=== PATIENT | female | born 1945 | race Caucasian/White ===

== ENCOUNTER → 2020-06-18 13:29 | Outpatient (BNVA) | payer MEDICARE, SELFPAY | PROVIDERS: PCP Family Medicine; Visit Provider Internal Medicine | DX: I48.0 Paroxysmal atrial fibrillation (principal); Z51.81 Encounter for therapeutic drug level monitoring; Z79.01 Long term (current) use of anticoagulants | CPT/HCPCS: 85610 ==

== ENCOUNTER → 2020-07-03 10:35 | Outpatient (BNVA) | payer MEDICARE, SELFPAY | PROVIDERS: PCP Family Medicine; Visit Provider Internal Medicine | DX: I48.0 Paroxysmal atrial fibrillation (principal); Z51.81 Encounter for therapeutic drug level monitoring; Z79.01 Long term (current) use of anticoagulants | CPT/HCPCS: 85610; 99211 ==

== ENCOUNTER → 2020-07-25 13:05 | Outpatient (BNVA) | payer MEDICARE, SELFPAY | PROVIDERS: PCP Family Medicine; Visit Provider Internal Medicine | DX: I48.0 Paroxysmal atrial fibrillation (principal); Z51.81 Encounter for therapeutic drug level monitoring; Z79.01 Long term (current) use of anticoagulants | CPT/HCPCS: 85610; 99211 ==

== ENCOUNTER → 2020-08-01 13:03 | Outpatient (BNVA) | payer MEDICARE, SELFPAY | PROVIDERS: PCP Family Medicine; Visit Provider Internal Medicine | DX: I48.0 Paroxysmal atrial fibrillation (principal); Z51.81 Encounter for therapeutic drug level monitoring; Z79.01 Long term (current) use of anticoagulants | CPT/HCPCS: 85610; 99211 ==

== ENCOUNTER → 2020-08-04 10:46 | Outpatient (BNVA) | payer MEDICARE, SELFPAY | PROVIDERS: PCP Family Medicine; Visit Provider Internal Medicine | DX: I48.0 Paroxysmal atrial fibrillation (principal); Z51.81 Encounter for therapeutic drug level monitoring; Z79.01 Long term (current) use of anticoagulants | CPT/HCPCS: 85610; 99211 ==

== ENCOUNTER → 2020-08-14 15:26 | Outpatient (BNVA) | payer MEDICARE, SELFPAY | PROVIDERS: PCP Family Medicine; Visit Provider Internal Medicine | DX: I48.0 Paroxysmal atrial fibrillation (principal); Z51.81 Encounter for therapeutic drug level monitoring; Z79.01 Long term (current) use of anticoagulants | CPT/HCPCS: 85610; 99212 ==

== ENCOUNTER → 2020-08-19 14:49 | Outpatient (BNVA) | payer MEDICARE, SELFPAY | PROVIDERS: PCP Family Medicine; Visit Provider Internal Medicine | DX: I48.0 Paroxysmal atrial fibrillation (principal); Z51.81 Encounter for therapeutic drug level monitoring; Z79.01 Long term (current) use of anticoagulants | CPT/HCPCS: Q3014 ==

== ENCOUNTER → 2020-08-21 15:38 | Outpatient (BNVA) | payer MEDICARE, SELFPAY | PROVIDERS: PCP Family Medicine; Visit Provider Internal Medicine | DX: I48.0 Paroxysmal atrial fibrillation (principal); Z51.81 Encounter for therapeutic drug level monitoring; Z79.01 Long term (current) use of anticoagulants | CPT/HCPCS: 85610; 99211 ==

== ENCOUNTER → 2020-08-25 15:28 | Outpatient (BNVA) | payer MEDICARE, SELFPAY | PROVIDERS: PCP Family Medicine; Visit Provider Internal Medicine | DX: I48.0 Paroxysmal atrial fibrillation (principal); Z51.81 Encounter for therapeutic drug level monitoring; Z79.01 Long term (current) use of anticoagulants | CPT/HCPCS: 85610; 99211 ==

== ENCOUNTER → 2020-09-01 14:55 | Outpatient (BNVA) | payer MEDICARE, SELFPAY | PROVIDERS: PCP Family Medicine; Visit Provider Internal Medicine | DX: I48.0 Paroxysmal atrial fibrillation (principal); Z51.81 Encounter for therapeutic drug level monitoring; Z79.01 Long term (current) use of anticoagulants | CPT/HCPCS: 85610; 99211 ==

== ENCOUNTER → 2020-09-08 15:06 | Outpatient (BNVA) | payer MEDICARE, SELFPAY | PROVIDERS: PCP Family Medicine; Visit Provider Internal Medicine | DX: I48.0 Paroxysmal atrial fibrillation (principal); Z51.81 Encounter for therapeutic drug level monitoring; Z79.01 Long term (current) use of anticoagulants | CPT/HCPCS: 85610; 99211 ==

== ENCOUNTER → 2020-09-18 14:55 | Outpatient (BNVA) | payer MEDICARE, SELFPAY | PROVIDERS: PCP Family Medicine; Visit Provider Internal Medicine | DX: I48.0 Paroxysmal atrial fibrillation (principal); Z79.01 Long term (current) use of anticoagulants; Z51.81 Encounter for therapeutic drug level monitoring | CPT/HCPCS: 85610; 99211 ==

== ENCOUNTER → 2020-09-24 14:55 | Outpatient (BNVA) | payer MEDICARE, SELFPAY | PROVIDERS: PCP Family Medicine; Visit Provider Internal Medicine | DX: I48.0 Paroxysmal atrial fibrillation (principal); Z79.01 Long term (current) use of anticoagulants; Z51.81 Encounter for therapeutic drug level monitoring | CPT/HCPCS: 85610; 99211 ==

== ENCOUNTER → 2020-10-01 15:01 | Outpatient (BNVA) | payer MEDICARE, SELFPAY | PROVIDERS: PCP Family Medicine; Visit Provider Internal Medicine | DX: I48.0 Paroxysmal atrial fibrillation (principal); Z51.81 Encounter for therapeutic drug level monitoring; Z79.01 Long term (current) use of anticoagulants | CPT/HCPCS: 85610; 99211 ==

== ENCOUNTER → 2020-10-10 14:57 | Outpatient (BNVA) | payer MEDICARE, SELFPAY | PROVIDERS: PCP Family Medicine; Visit Provider Internal Medicine | DX: I48.0 Paroxysmal atrial fibrillation (principal); Z51.81 Encounter for therapeutic drug level monitoring; Z79.01 Long term (current) use of anticoagulants | CPT/HCPCS: 85610; 99211 ==

== ENCOUNTER → 2020-10-21 10:55 | Outpatient (BNVA) | payer MEDICARE, SELFPAY | PROVIDERS: PCP Family Medicine; Visit Provider Internal Medicine | DX: I48.0 Paroxysmal atrial fibrillation (principal); Z51.81 Encounter for therapeutic drug level monitoring; Z79.01 Long term (current) use of anticoagulants | CPT/HCPCS: 85610; 99211 ==

== ENCOUNTER → 2020-11-03 11:18 | Outpatient (BNVA) | payer MEDICARE, SELFPAY | PROVIDERS: PCP Family Medicine; Visit Provider Internal Medicine | DX: I48.0 Paroxysmal atrial fibrillation (principal); Z51.81 Encounter for therapeutic drug level monitoring; Z79.01 Long term (current) use of anticoagulants | CPT/HCPCS: 85610; 99211 ==

== ENCOUNTER → 2020-11-11 11:10 | Outpatient (BNVA) | payer MEDICARE, SELFPAY | PROVIDERS: PCP Family Medicine; Visit Provider Internal Medicine | DX: I48.0 Paroxysmal atrial fibrillation (principal); Z51.81 Encounter for therapeutic drug level monitoring; Z79.01 Long term (current) use of anticoagulants | CPT/HCPCS: 85610; 99211 ==

== ENCOUNTER → 2020-11-18 10:53 | Outpatient (BNVA) | payer MEDICARE, SELFPAY | PROVIDERS: PCP Family Medicine; Visit Provider Internal Medicine | DX: I48.0 Paroxysmal atrial fibrillation (principal); Z51.81 Encounter for therapeutic drug level monitoring; Z79.01 Long term (current) use of anticoagulants | CPT/HCPCS: 85610; 99211 ==

== ENCOUNTER → 2020-11-25 10:47 | Outpatient (BNVA) | payer MEDICARE, SELFPAY | PROVIDERS: PCP Family Medicine; Visit Provider Internal Medicine | DX: I48.0 Paroxysmal atrial fibrillation (principal); Z51.81 Encounter for therapeutic drug level monitoring; Z79.01 Long term (current) use of anticoagulants | CPT/HCPCS: 85610; 99211 ==

== ENCOUNTER → 2020-12-08 10:55 | Outpatient (BNVA) | payer MEDICARE, SELFPAY | PROVIDERS: PCP Family Medicine; Visit Provider Internal Medicine | DX: I48.0 Paroxysmal atrial fibrillation (principal); Z51.81 Encounter for therapeutic drug level monitoring; Z79.01 Long term (current) use of anticoagulants | CPT/HCPCS: 85610; 99211 ==

== ENCOUNTER → 2020-12-18 13:23 | Outpatient (BNVA) | payer MEDICARE, SELFPAY | PROVIDERS: PCP Family Medicine; Visit Provider Internal Medicine | DX: I48.0 Paroxysmal atrial fibrillation (principal); Z51.81 Encounter for therapeutic drug level monitoring; Z79.01 Long term (current) use of anticoagulants | CPT/HCPCS: 85610; 99211 ==

== ENCOUNTER → 2020-12-22 13:09 | Outpatient (BNVA) | payer MEDICARE, SELFPAY | PROVIDERS: PCP Family Medicine; Visit Provider Internal Medicine | DX: I48.0 Paroxysmal atrial fibrillation (principal); Z79.01 Long term (current) use of anticoagulants; Z51.81 Encounter for therapeutic drug level monitoring | CPT/HCPCS: 85610; 99211 ==

== ENCOUNTER → 2021-01-05 14:02 | Outpatient (BNVA) | payer MEDICARE, SELFPAY | PROVIDERS: PCP Family Medicine; Visit Provider Internal Medicine | DX: I48.0 Paroxysmal atrial fibrillation (principal); Z51.81 Encounter for therapeutic drug level monitoring; Z79.01 Long term (current) use of anticoagulants | CPT/HCPCS: 85610; 99211 ==

== ENCOUNTER → 2021-01-13 11:14 | Outpatient (BNVA) | payer MEDICARE, SELFPAY | PROVIDERS: PCP Family Medicine; Visit Provider Internal Medicine | DX: I48.0 Paroxysmal atrial fibrillation (principal); Z51.81 Encounter for therapeutic drug level monitoring; Z79.01 Long term (current) use of anticoagulants | CPT/HCPCS: 85610; 99211 ==

== ENCOUNTER → 2021-01-26 11:07 | Outpatient (BNVA) | payer MEDICARE, SELFPAY | PROVIDERS: PCP Internal Medicine; Visit Provider Internal Medicine | DX: I48.0 Paroxysmal atrial fibrillation (principal); Z51.81 Encounter for therapeutic drug level monitoring; Z79.01 Long term (current) use of anticoagulants | CPT/HCPCS: 85610; 99211 ==

== ENCOUNTER → 2021-02-12 11:33 | Outpatient (BNVA) | payer MEDICARE, SELFPAY | PROVIDERS: PCP Internal Medicine; Visit Provider Internal Medicine | DX: I48.0 Paroxysmal atrial fibrillation (principal); Z51.81 Encounter for therapeutic drug level monitoring; Z79.01 Long term (current) use of anticoagulants | CPT/HCPCS: 85610; 99211 ==

== ENCOUNTER → 2021-02-16 13:45 | Outpatient (BNVA) | payer MEDICARE, SELFPAY | PROVIDERS: PCP Internal Medicine; Visit Provider Internal Medicine | DX: I48.0 Paroxysmal atrial fibrillation (principal); Z51.81 Encounter for therapeutic drug level monitoring; Z79.01 Long term (current) use of anticoagulants | CPT/HCPCS: 85610; 99211 ==

== ENCOUNTER 2021-03-08 16:59 | Emergency (ER) | payer MEDICARE, SELFPAY ==
--- NOTE | ~2021-03-08 | XR_ITS ---
EXAMINATION: XR TIBIA AND FIBULA, RIGHT CLINICAL INFORMATION: The right COMPARISON: None TECHNIQUE: AP and lateral views of the right tibia and fibula were obtained. FINDINGS: No evidence of bony violation. No evidence of radiopaque foreign body. XR/XR tibia fibula RT 2V IMPRESSION: No bony finding. No radiopaque foreign body is seen
[2021-03-08 17:25] VITALS: BP 128/78; PULSE 52; RESP 16; TEMP 36.3; O2SAT 98; BMI 23.3
--- NOTE | 2021-03-08 18:06 | ED.ANIMALBIT ---
HPI - Animal Bite General Chief Complaint: Animal Bite Stated Complaint: Dog Bite Time Seen by Provider: 03/08/21 17:45 Source: patient Mode of arrival: ambulatory Limitations: no limitations History of Present Illness HPI narrative: 75-year-old female who is currently on blood thinners presenting to the ED with complaints of a dog bite to her right lower leg prior to arrival. She reports that it is her son's dog and this is the 2nd time that he has done this. She reports that she was just walking across the lawn and the dog attacked her. She reports that the dog is up-to-date on all immunizations. She reports she is not up-to-date on tetanus vaccine. She denies any other injuries complaints or concerns at this time. complaint: animal bite Onset (ago): minute(s) ( prior to arrival) Animal: dog Description of animal: household pet Mechanism: bite Location - Extremities: right: lower leg Pain description: dull and constant Context: unprovoked Associated symptoms: none Treatments prior to arrival: wound dressing(s), irrigation and pressure Related Data Patient tetanus UTD: No Home Medications Medication Instructions Recorded Confirmed alendronate 70 mg tablet 70 mg PO QWEEK 10/10/20 01/26/21 atorvastatin 40 mg tablet mg PO 10/10/20 01/26/21 cetirizine 10 mg tablet 10 mg PO DAILY 10/10/20 01/26/21 estradiol g VAGINAL 10/10/20 01/26/21 fluticasone 500 mcg-salmeterol 50 INHALATION 10/10/20 01/26/21 mcg/dose blistr powdr for inhalation metoprolol succinate 50 mg 100 mg PO DAILY 10/10/20 01/26/21 tablet,extended release 24 hr pantoprazole 40 mg tablet,delayed 40 mg PO DAILY 10/10/20 01/26/21 release topiramate 50 mg tablet 50 mg PO DAILY 10/10/20 01/26/21 Previous Rx's Medication Instructions Recorded warfarin 2.5 mg tablet See Rx Instructions .ROUTE 09/01/20 .COMPLEX #90 tab acetaminophen [Tylenol Extra 1,000 mg PO QID PRN #14 tab 03/08/21 Strength] cefuroxime axetil 500 mg PO BID 10 Days #20 tab 03/08/21 tramadol 50 mg PO BID PRN #14 tab 03/08/21 Allergies Allergy/AdvReac Type Severity Reaction Status Date / Time memantine Allergy Severe RAGE Verified 02/16/21 13:53 nitrofurantoin Allergy Intermediate RASH Verified 02/16/21 13:53 oseltamivir [From Tamiflu] Allergy Intermediate RASH Verified 02/16/21 13:53 oxycodone [From PERCOCET] Allergy Unknown UNKNOWN Verified 02/16/21 13:53 Penicillins [PENICILLINS] Allergy Unknown UNKNOWN Verified 02/16/21 13:53 Sulfa (Sulfonamide Allergy Unknown UNKNOWN Verified 02/16/21 13:53 Antibiotics) [SULFA (SULFONAMIDE ANTIBIOTICS)] Review of Systems Review of Systems: Constitutional : No Fever, No Chills, Cardiovascular : No Chest Pain, No SOB Respiratory : No Dyspnea Gastrointestinal : No abdominal pain Musculoskeletal : No Joint Swelling Skin : Positive Puncture wounds, No Foreign bodies, No rash, No surrounding erythema Neuro : No Weakness, No Numbness/tingling Psych : No SI/HI/thoughts of self injury Yes all other systems are reviewed and are negative PENDING SALE TO [facility] Past Medical History Attestation statement: The following information was validated with the patient. Social History Social History Advance Directives: Yes Advance Directives Information Provided: No Advance Directives on File: No Physical Exam Vital Signs: Vital Signs: Last Vital Signs Temp 97.3 F 03/08/21 17:25 Pulse 52 03/08/21 17:25 Resp 16 03/08/21 17:25 BP 128/78 03/08/21 17:25 Pulse Ox 98 03/08/21 17:25 Body Mass Index 23.3 vital signs have been reviewed as normal and appeared to be correct. Blood pressure normal. Heart rate normal. Respiration rate normal. Temperature normal. Oxygen saturation normal. Appearance: Alert. Oriented X3. No acute distress. Head: Normal external exam. Normocephalic. Atraumatic. Eyes: PERRLA. EOMI. Conjunctiva and sclera normal. Eyelids normal. ENT: Pharynx normal. Uvula midline. Moist mucous membranes. Neck: Normal inspection. Neck supple. FROM. No adenopathy. No meningeal signs. CVS: Normal heart rate and rhythm. Respiratory: No respiratory distress. Painless inspiration. Back: Full range of motion noted. No rashes/lesion/induration/fluctuance or signs of infection noted. Skin: Skin warm and dry. Normal skin color. Normal skin turgor. No rashes/lesions/lacerations noted. Extremities: patient with puncture wound dog bite morales to medial aspect of right lower extremity /chin area. No foreign bodies or signs of infection or deep laceration noted at this time. Otherwise all other Extremities exhibit normal range of motion and nontender. Neuro: Oriented X 3. No motor deficit. No sensory deficit. Reflexes normal. Normal steady gait. No focal neuro deficits noted. Vascular: + radial pulses/+ 2 distal pedal pulses/+2 dorsalis pedis b/l. Normal cap refill. No cyanosis noted to upper extremity nails and lower extremity toes nails. Course Course Course Narrative: patient status post dog bite which was her son's dog who is up-to-date on all immunizations. Patient is not up-to-date on tetanus. Tetanus was updated. X-ray obtained and negative for any acute processes. Will DC home with antibiotics and symptomatic treatment instructions return if any new or worsening symptoms to follow up with primary care provider. Patient understands agrees with this plan. [facility] - Animal Bite Medical Records Attestation: I reviewed the patient's medical records. Imaging Data Right lower extremity x-ray: Attestation: I personally reviewed and interpreted this imaging study as follows: Radiologist's impression: FINDINGS: No evidence of bony violation. No evidence of radiopaque foreign body. XR/XR tibia fibula RT 2V IMPRESSION: No bony finding. No radiopaque foreign body is seen Discharge Plan Discharge Clinical Impression: Dog bite Patient Disposition: Home, Self-Care Instructions: Animal Bite (ED) Prescriptions: New cefuroxime axetil 500 mg tablet 500 mg PO BID 10 Days Qty: 20 RF: 0 tramadol 50 mg tablet 50 mg PO BID PRN (Reason: pain) Qty: 14 RF: 0 acetaminophen [Tylenol Extra Strength] 500 mg tablet 1,000 mg PO QID PRN (Reason: fever or pain) Qty: 14 RF: 0 No Action warfarin 2.5 mg tablet See Rx Instructions mg .ROUTE .COMPLEX Qty: 90 RF: 0 estradiol 0.01 % (0.1 mg/gram) cream vaginal RF: 0 pantoprazole 40 mg tablet,delayed release (DR/EC) 40 mg PO DAILY RF: 0 cetirizine 10 mg tablet 10 mg PO DAILY RF: 0 metoprolol succinate 50 mg tablet extended release 24 hr 100 mg PO DAILY RF: 0 fluticasone propion-salmeterol 500-50 mcg/dose blister with device inhalation RF: 0 topiramate 50 mg tablet 50 mg PO DAILY RF: 0 atorvastatin 40 mg tablet PO RF: 0 alendronate 70 mg tablet 70 mg PO QWEEK RF: 0 Print Language: Com[place]an
[2021-03-08] MEDS: Diphth,Pertus(ACell),Tet Adult 0.5 ML SYRINGE IM (18:29)
--- NOTE | 2021-03-08 20:57 | PC.NURSE ---
ANIMAL BITE FORM EMAILED TO [employer] [facility] [employer].
== END 2021-03-08 18:57 | disposition home or self-care (01) ==
PROVIDERS: Emergency Provider Internal Medicine; PCP Internal Medicine
DX: S81.831A Puncture wound without foreign body, right lower leg, initial encounter (principal); W54.0XXA Bitten by dog, initial encounter; Y93.89 Activity, other specified; Y92.017 Garden or yard in single-family (private) house as the place of occurrence of the external cause; Y99.9 Unspecified external cause status; Z79.01 Long term (current) use of anticoagulants
CPT/HCPCS: 73590; 90471; 90715; 99284

== ENCOUNTER → 2021-03-09 13:03 | Outpatient (BNVA) | payer MEDICARE, SELFPAY | PROVIDERS: PCP Internal Medicine; Visit Provider Internal Medicine | DX: I48.0 Paroxysmal atrial fibrillation (principal); Z51.81 Encounter for therapeutic drug level monitoring; Z79.01 Long term (current) use of anticoagulants | CPT/HCPCS: 85610; 99211 ==

== ENCOUNTER → 2021-03-13 13:42 | Outpatient (BNVA) | payer MEDICARE, SELFPAY | PROVIDERS: PCP Internal Medicine; Visit Provider Internal Medicine | DX: I48.0 Paroxysmal atrial fibrillation (principal); Z51.81 Encounter for therapeutic drug level monitoring; Z79.01 Long term (current) use of anticoagulants | CPT/HCPCS: 85610; 99211 ==

== ENCOUNTER → 2021-03-23 13:02 | Outpatient (BNVA) | payer MEDICARE, SELFPAY | PROVIDERS: PCP Internal Medicine; Visit Provider Internal Medicine | DX: I48.0 Paroxysmal atrial fibrillation (principal); Z51.81 Encounter for therapeutic drug level monitoring; Z79.01 Long term (current) use of anticoagulants | CPT/HCPCS: 85610; 99211 ==

== ENCOUNTER → 2021-04-07 13:00 | Outpatient (BNVA) | payer MEDICARE, SELFPAY | PROVIDERS: PCP Internal Medicine; Visit Provider Internal Medicine | DX: I48.0 Paroxysmal atrial fibrillation (principal); Z51.81 Encounter for therapeutic drug level monitoring; Z79.01 Long term (current) use of anticoagulants | CPT/HCPCS: 85610; 99211 ==

== ENCOUNTER → 2021-04-14 13:06 | Outpatient (BNVA) | payer MEDICARE, SELFPAY | PROVIDERS: PCP Internal Medicine; Visit Provider Internal Medicine | DX: I48.0 Paroxysmal atrial fibrillation (principal); Z51.81 Encounter for therapeutic drug level monitoring; Z79.01 Long term (current) use of anticoagulants | CPT/HCPCS: 85610; 99211 ==

== ENCOUNTER → 2021-04-28 13:22 | Outpatient (BNVA) | payer MEDICARE, SELFPAY | PROVIDERS: PCP Internal Medicine; Visit Provider Internal Medicine | DX: I48.0 Paroxysmal atrial fibrillation (principal); Z51.81 Encounter for therapeutic drug level monitoring; Z79.01 Long term (current) use of anticoagulants | CPT/HCPCS: 85610; 99211 ==

== ENCOUNTER → 2021-05-12 13:31 | Outpatient (BNVA) | payer MEDICARE, SELFPAY | PROVIDERS: PCP Internal Medicine; Visit Provider Internal Medicine | DX: I48.0 Paroxysmal atrial fibrillation (principal); Z51.81 Encounter for therapeutic drug level monitoring; Z79.01 Long term (current) use of anticoagulants | CPT/HCPCS: 85610; 99211 ==

== ENCOUNTER → 2021-05-21 10:52 | Outpatient (BNVA) | payer MEDICARE, SELFPAY | PROVIDERS: PCP Internal Medicine; Visit Provider Internal Medicine | DX: I48.0 Paroxysmal atrial fibrillation (principal); Z51.81 Encounter for therapeutic drug level monitoring; Z79.01 Long term (current) use of anticoagulants | CPT/HCPCS: 85610; 99211 ==

== ENCOUNTER → 2021-05-26 13:14 | Outpatient (BNVA) | payer MEDICARE, SELFPAY | PROVIDERS: PCP Internal Medicine; Visit Provider Internal Medicine | DX: I48.0 Paroxysmal atrial fibrillation (principal); Z51.81 Encounter for therapeutic drug level monitoring; Z79.01 Long term (current) use of anticoagulants | CPT/HCPCS: 85610; 99211 ==

== ENCOUNTER → 2021-06-09 13:10 | Outpatient (BNVA) | payer MEDICARE, SELFPAY | PROVIDERS: PCP Internal Medicine; Visit Provider Internal Medicine | DX: I48.0 Paroxysmal atrial fibrillation (principal); Z51.81 Encounter for therapeutic drug level monitoring; Z79.01 Long term (current) use of anticoagulants | CPT/HCPCS: 85610; 99211 ==

== ENCOUNTER → 2021-06-24 13:10 | Outpatient (BNVA) | payer MEDICARE, SELFPAY | PROVIDERS: PCP Internal Medicine; Visit Provider Internal Medicine | DX: I48.0 Paroxysmal atrial fibrillation (principal); Z51.81 Encounter for therapeutic drug level monitoring; Z79.01 Long term (current) use of anticoagulants | CPT/HCPCS: 85610; 99211 ==

== ENCOUNTER → 2021-07-15 13:31 | Outpatient (BNVA) | payer MEDICARE, SELFPAY | PROVIDERS: PCP Internal Medicine; Visit Provider Internal Medicine | DX: I48.0 Paroxysmal atrial fibrillation (principal); Z51.81 Encounter for therapeutic drug level monitoring; Z79.01 Long term (current) use of anticoagulants | CPT/HCPCS: 85610; 99211 ==

== ENCOUNTER → 2021-08-05 13:10 | Outpatient (BNVA) | payer MEDICARE, SELFPAY | PROVIDERS: PCP Internal Medicine; Visit Provider Internal Medicine | DX: I48.0 Paroxysmal atrial fibrillation (principal); Z51.81 Encounter for therapeutic drug level monitoring; Z79.01 Long term (current) use of anticoagulants | CPT/HCPCS: 85610; 99211 ==

== ENCOUNTER → 2021-08-10 13:55 | Outpatient (BNVA) | payer MEDICARE, SELFPAY | PROVIDERS: PCP Internal Medicine; Visit Provider Internal Medicine | DX: I48.0 Paroxysmal atrial fibrillation (principal); Z51.81 Encounter for therapeutic drug level monitoring; Z79.01 Long term (current) use of anticoagulants | CPT/HCPCS: 85610; 99211 ==

== ENCOUNTER → 2021-08-14 14:42 | Outpatient (BNVA) | payer MEDICARE, SELFPAY | PROVIDERS: PCP Internal Medicine; Visit Provider Internal Medicine | DX: I48.0 Paroxysmal atrial fibrillation (principal); Z51.81 Encounter for therapeutic drug level monitoring; Z79.01 Long term (current) use of anticoagulants | CPT/HCPCS: 85610; 99211 ==

== ENCOUNTER 2021-08-18 15:53 | Outpatient (REF) | payer MEDICARE, SELFPAY ==
--- NOTE | ~2021-08-18 | CT_ITS ---
EXAMINATION: CT CHEST WITHOUT CONTRAST CLINICAL INFORMATION: Follow-up abnormal chest CT. COMPARISON: Previous chest CT 05/20/2021 TECHNIQUE: Multidetector volumetric CT imaging of the chest was done. Axial MIP volume rendering provided. Sagittal and coronal reformatted images were obtained. This CT examination was performed using dose optimization techniques as appropriate, variously including the following: *Automated exposure control *Adjustment of mA and/or kV according to patient size (this includes techniques or standardized protocols for targeted exams where dose is matched to indication/reason for exam; i.e. extremities or head) *Use of iterative reconstruction technique DLP: 115 mGy-cm FINDINGS: LUNGS: Evaluation of the lung bases is limited due to artifact from respiratory motion. There is increasing atelectasis or consolidation seen in the lingula, for example axial image 346 series 7. The previously identified airways disease in the left lower lobe is not appreciated. There is scarring or subsegmental atelectasis in the posterior basal left lower lobe that appears unchanged axial image 474 series 7. There is an adjacent small left posterior diaphragmatic hernia containing fat. There is increased paravertebral ground-glass attenuation in the right lower lobe probably related to atelectasis or scarring axial image 476 series 7 that is unchanged. MEDIASTINUM: The heart is upper normal in size. 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 The thoracic aorta is tortuous and upper normal in size. This appears unchanged. 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 The size of the thoracic aorta appears unchanged. There is no pericardial effusion. There is an atrial appendage clip. There is a prominent precarinal lymph node that is stable. This measures 1.1 cm in short axis and has central fatty attenuation or fatty kamari. This appears unchanged. There are additional smaller mediastinal lymph nodes. PLEURA: There is no pleural effusion. No pleural mass or thickening. AXILLA: No lymphadenopathy. There are surgical clips adjacent to the right subclavian vessels. UPPER ABDOMEN: There are gallstones in the gallbladder. There is a 4 cm right renal cyst. There is a small stone in the lower pole of the left kidney. 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 The abdominal aorta is normal in caliber. OSSEOUS STRUCTURES: There is thoracolumbar scoliosis and degenerative changes of the spine. There are postsurgical changes to the lumbar spine. There are median sternotomy wires which appear intact and united median sternotomy. There is a surgical tack or screw in the right proximal humerus. There are degenerative changes at the shoulders. CT/CT chest wo con IMPRESSION: Limited evaluation of the lung bases due to artifact from respiratory motion. Stable appearance of the heart and aorta. Stable appearance of the partially calcified dissection flap. Increasing atelectasis or consolidation in the lingula. Previously identified tree-in-bud nodular opacities left lower lobe nodule are not appreciated. Stable atelectasis or scarring at the lung bases. Fleischner guidelines were followed.
== END 2021-08-18 15:54 | disposition home or self-care (01) ==
LOC: HO.CT 15:53
PROVIDERS: Visit Provider Internal Medicine
DX: R93.89 Abnormal findings on diagnostic imaging of other specified body structures (principal)
CPT/HCPCS: 71250

== ENCOUNTER → 2021-08-31 13:05 | Outpatient (BNVA) | payer MEDICARE, SELFPAY | PROVIDERS: PCP Internal Medicine; Visit Provider Internal Medicine | DX: I48.0 Paroxysmal atrial fibrillation (principal); Z51.81 Encounter for therapeutic drug level monitoring; Z79.01 Long term (current) use of anticoagulants | CPT/HCPCS: 85610; 99211 ==

== ENCOUNTER → 2021-09-03 11:25 | Outpatient (BNVA) | payer MEDICARE, SELFPAY | PROVIDERS: PCP Internal Medicine; Visit Provider Internal Medicine | DX: I48.0 Paroxysmal atrial fibrillation (principal); Z51.81 Encounter for therapeutic drug level monitoring; Z79.01 Long term (current) use of anticoagulants | CPT/HCPCS: 85610; 99211 ==

== ENCOUNTER → 2021-09-10 13:25 | Outpatient (BNVA) | payer MEDICARE, SELFPAY | PROVIDERS: PCP Internal Medicine; Visit Provider Internal Medicine | DX: I48.0 Paroxysmal atrial fibrillation (principal); Z51.81 Encounter for therapeutic drug level monitoring; Z79.01 Long term (current) use of anticoagulants | CPT/HCPCS: 85610; 99211 ==

== ENCOUNTER → 2021-09-17 13:45 | Outpatient (BNVA) | payer MEDICARE, SELFPAY | PROVIDERS: PCP Internal Medicine; Visit Provider Internal Medicine | DX: I48.0 Paroxysmal atrial fibrillation (principal); Z51.81 Encounter for therapeutic drug level monitoring; Z79.01 Long term (current) use of anticoagulants | CPT/HCPCS: 85610; 99211 ==

== ENCOUNTER → 2021-09-24 13:08 | Outpatient (BNVA) | payer MEDICARE, SELFPAY | PROVIDERS: PCP Internal Medicine; Visit Provider Internal Medicine | DX: I48.0 Paroxysmal atrial fibrillation (principal); Z51.81 Encounter for therapeutic drug level monitoring; Z79.01 Long term (current) use of anticoagulants | CPT/HCPCS: 85610; 99211 ==

== ENCOUNTER → 2021-10-08 13:28 | Outpatient (BNVA) | payer MEDICARE, SELFPAY | PROVIDERS: PCP Internal Medicine; Visit Provider Internal Medicine | DX: I48.0 Paroxysmal atrial fibrillation (principal); Z51.81 Encounter for therapeutic drug level monitoring; Z79.01 Long term (current) use of anticoagulants | CPT/HCPCS: 85610; 99211 ==

== ENCOUNTER → 2021-10-22 13:03 | Outpatient (BNVA) | payer MEDICARE, SELFPAY | PROVIDERS: PCP Internal Medicine; Visit Provider Internal Medicine | DX: I48.0 Paroxysmal atrial fibrillation (principal); Z51.81 Encounter for therapeutic drug level monitoring; Z79.01 Long term (current) use of anticoagulants | CPT/HCPCS: 85610; 99211 ==

== ENCOUNTER → 2021-10-29 13:32 | Outpatient (BNVA) | payer MEDICARE, SELFPAY | PROVIDERS: PCP Internal Medicine; Visit Provider Internal Medicine | DX: I48.0 Paroxysmal atrial fibrillation (principal); Z51.81 Encounter for therapeutic drug level monitoring; Z79.01 Long term (current) use of anticoagulants | CPT/HCPCS: 85610; 99211 ==

== ENCOUNTER → 2021-11-11 11:19 | Outpatient (BNVA) | payer MEDICARE, SELFPAY | PROVIDERS: PCP Internal Medicine; Visit Provider Internal Medicine | DX: I48.0 Paroxysmal atrial fibrillation (principal); Z51.81 Encounter for therapeutic drug level monitoring; Z79.01 Long term (current) use of anticoagulants | CPT/HCPCS: 85610; 99211 ==

== ENCOUNTER → 2021-11-18 13:13 | Outpatient (BNVA) | payer MEDICARE, SELFPAY | PROVIDERS: PCP Internal Medicine; Visit Provider Internal Medicine | DX: I48.0 Paroxysmal atrial fibrillation (principal); Z51.81 Encounter for therapeutic drug level monitoring; Z79.01 Long term (current) use of anticoagulants | CPT/HCPCS: 85610; 99211 ==

== ENCOUNTER 2021-12-02 13:02 | Outpatient (REF) | payer MEDICARE, SELFPAY ==
[2021-12-02 13:39] LABS: Prothrombin Time 68.6 SEC (9.9-13.0)
[2021-12-02 13:42] LABS: INTERNATIONAL NORM RATIO 5.8 (0.9-1.1)
== END 2021-12-02 13:03 | disposition home or self-care (01) ==
LOC: HO.LAB 13:02
PROVIDERS: PCP Internal Medicine; Visit Provider Internal Medicine
DX: I48.0 Paroxysmal atrial fibrillation (principal); Z51.81 Encounter for therapeutic drug level monitoring; Z79.01 Long term (current) use of anticoagulants
CPT/HCPCS: 36415; 85610; 99212

== ENCOUNTER → 2021-12-04 14:06 | Outpatient (BNVA) | payer MEDICARE, SELFPAY | PROVIDERS: PCP Internal Medicine; Visit Provider Internal Medicine | DX: I48.0 Paroxysmal atrial fibrillation (principal); Z51.81 Encounter for therapeutic drug level monitoring; Z79.01 Long term (current) use of anticoagulants | CPT/HCPCS: 85610; 99211 ==

== ENCOUNTER → 2021-12-07 14:16 | Outpatient (BNVA) | payer MEDICARE, SELFPAY | PROVIDERS: PCP Internal Medicine; Visit Provider Internal Medicine | DX: I48.0 Paroxysmal atrial fibrillation (principal); Z51.81 Encounter for therapeutic drug level monitoring; Z79.01 Long term (current) use of anticoagulants | CPT/HCPCS: 85610; 99211 ==

== ENCOUNTER → 2021-12-11 13:28 | Outpatient (BNVA) | payer MEDICARE, SELFPAY | PROVIDERS: PCP Internal Medicine; Visit Provider Internal Medicine | DX: I48.0 Paroxysmal atrial fibrillation (principal); Z51.81 Encounter for therapeutic drug level monitoring; Z79.01 Long term (current) use of anticoagulants | CPT/HCPCS: 85610; 99212 ==

== ENCOUNTER → 2021-12-14 13:31 | Outpatient (BNVA) | payer MEDICARE, SELFPAY | PROVIDERS: PCP Internal Medicine; Visit Provider Internal Medicine | DX: I48.0 Paroxysmal atrial fibrillation (principal); Z51.81 Encounter for therapeutic drug level monitoring; Z79.01 Long term (current) use of anticoagulants | CPT/HCPCS: 85610; 99212 ==

== ENCOUNTER → 2021-12-17 14:02 | Outpatient (BNVA) | payer MEDICARE, SELFPAY | PROVIDERS: PCP Internal Medicine; Visit Provider Internal Medicine | DX: I48.0 Paroxysmal atrial fibrillation (principal); Z51.81 Encounter for therapeutic drug level monitoring; Z79.01 Long term (current) use of anticoagulants | CPT/HCPCS: 85610; 99211 ==

== ENCOUNTER → 2021-12-29 13:33 | Outpatient (BNVA) | payer MEDICARE, SELFPAY | PROVIDERS: PCP Internal Medicine; Visit Provider Internal Medicine | DX: I48.0 Paroxysmal atrial fibrillation (principal); Z79.01 Long term (current) use of anticoagulants; Z51.81 Encounter for therapeutic drug level monitoring | CPT/HCPCS: 85610; 99211 ==

== ENCOUNTER → 2022-01-05 13:13 | Outpatient (BNVA) | payer MEDICARE, SELFPAY | PROVIDERS: PCP Internal Medicine; Visit Provider Internal Medicine | DX: I48.0 Paroxysmal atrial fibrillation (principal); Z79.01 Long term (current) use of anticoagulants; Z51.81 Encounter for therapeutic drug level monitoring | CPT/HCPCS: 85610; 99211 ==

== ENCOUNTER → 2022-01-15 13:43 | Outpatient (BNVA) | payer MEDICARE, SELFPAY | PROVIDERS: PCP Internal Medicine; Visit Provider Internal Medicine | DX: I48.0 Paroxysmal atrial fibrillation (principal); Z79.01 Long term (current) use of anticoagulants; Z51.81 Encounter for therapeutic drug level monitoring | CPT/HCPCS: 85610; 99211 ==

== ENCOUNTER → 2022-01-22 13:27 | Outpatient (BNVA) | payer MEDICARE, SELFPAY | PROVIDERS: PCP Internal Medicine; Visit Provider Internal Medicine | DX: I48.0 Paroxysmal atrial fibrillation (principal); Z79.01 Long term (current) use of anticoagulants; Z51.81 Encounter for therapeutic drug level monitoring | CPT/HCPCS: 85610; 99211 ==

== ENCOUNTER → 2022-02-01 13:17 | Outpatient (BNVA) | payer MEDICARE, SELFPAY | PROVIDERS: PCP Internal Medicine; Visit Provider Internal Medicine | DX: I48.0 Paroxysmal atrial fibrillation (principal); Z79.01 Long term (current) use of anticoagulants; Z51.81 Encounter for therapeutic drug level monitoring | CPT/HCPCS: 85610; 99211 ==

== ENCOUNTER 2022-02-06 20:15 | Emergency (ER) | payer MEDICARE, SELFPAY ==
[2022-02-06 21:43] VITALS: BP 149/41; PULSE 98; RESP 18; TEMP 36.9; O2SAT 98; BMI 23.0
[2022-02-07 03:36] VITALS: BP 148/75; PULSE 57; RESP 18; O2SAT 99
[2022-02-07 05:31] VITALS: BP 163/74; PULSE 59; RESP 18; TEMP 36.5; O2SAT 99
--- NOTE | 2022-02-07 06:25 | ED.EPISTAXIS ---
History of Present Illness General Chief Complaint: Epistaxis Stated Complaint: nose bleed since 2pm Time Seen by Provider: 02/07/22 06:25 Source: patient Mode of arrival: ambulatory History of Present Illness HPI Narrative: This 76-year-old female who is on blood thinners and reports that she has had intermittent nose bleed for the past 2 days, but has successfully been able to stop the nose bleed with [id number] clotting adjuncts with success and currently has a piece in place in the right nostril. Related Data Home Medications Medication Instructions Recorded Confirmed alendronate 70 mg tablet 70 mg PO QWEEK 10/10/20 01/15/22 cetirizine 10 mg tablet 10 mg PO DAILY 10/10/20 01/15/22 estradiol g VAGINAL 10/10/20 01/15/22 fluticasone 500 mcg-salmeterol 50 INHALATION 10/10/20 01/15/22 mcg/dose blistr powdr for inhalation pantoprazole 40 mg tablet,delayed 40 mg PO DAILY 10/10/20 01/15/22 release topiramate 50 mg tablet 50 mg PO DAILY 10/10/20 01/15/22 methenamine hippurate 1 gram tablet 1 g PO BID 04/14/21 01/15/22 mirtazapine 7.5 mg tablet 7.5 mg PO BEDTIME 04/14/21 01/15/22 albuterol sulfate 90 mcg/actuation 2 puff INHALATION Q4H PRN 05/21/21 01/15/22 aerosol inhaler fosfomycin tromethamine 3 gram 0 packet PO 08/14/21 01/15/22 oral packet ezetimibe 10 mg tablet 10 mg PO DAILY 08/26/21 01/15/22 metoprolol succinate 50 mg 50 mg PO DAILY 12/07/21 01/15/22 tablet,extended release 24 hr CRAN DEFENSE PO 12/11/21 01/15/22 Saccharomyces boulardii [Daily PO 12/11/21 01/15/22 Probiotic (S. boulardii)] ascorbic acid (vitamin C) 1,000 mg 1 g PO DAILY tab 12/11/21 01/15/22 tablet biotin 1,000 mcg chewable tablet 1,000 mcg PO DAILY 12/11/21 01/15/22 calcium carbonate 600 mg-vitamin See Rx Instructions PO .COMPLEX 12/11/21 01/15/22 D3 12.5 mcg (500 unit) capsule (Calcium 600 with Vitamin D3) cholecalciferol (vitamin D3) See Rx Instructions PO .COMPLEX 12/11/21 01/15/22 cranberry fruit concentrate [Azo PO 12/11/21 01/15/22 Cranberry] cyanocobalamin (vitamin B-12) 1,000 mcg PO DAILY 12/11/21 01/15/22 1,000 mcg capsule psyllium seed (sugar) oral powder 1 tbsp PO DAILY 12/11/21 01/15/22 (Metamucil (sugar)) denosumab 60 mg/mL subcutaneous mg SUBCUT 12/17/21 01/15/22 syringe (Prolia) Previous Rx's Medication Instructions Recorded warfarin 2.5 mg tablet See Rx Instructions .ROUTE 09/01/20 .COMPLEX #90 tab acetaminophen 500 mg tablet 1,000 mg PO QID PRN #14 tab 03/08/21 (Tylenol Extra Strength) tramadol 50 mg tablet 50 mg PO BID PRN #14 tab 03/08/21 Allergies Allergy/AdvReac Type Severity Reaction Status Date / Time memantine Allergy Severe RAGE Verified 01/22/22 13:31 nitrofurantoin Allergy Intermediate RASH Verified 01/22/22 13:31 oseltamivir [From Tamiflu] Allergy Intermediate RASH Verified 01/22/22 13:31 oxycodone [From PERCOCET] Allergy Unknown UNKNOWN Verified 01/22/22 13:31 Penicillins [PENICILLINS] Allergy Unknown UNKNOWN Verified 01/22/22 13:31 Sulfa (Sulfonamide Allergy Unknown UNKNOWN Verified 01/22/22 13:31 Antibiotics) [SULFA (SULFONAMIDE ANTIBIOTICS)] Review of Systems Review of Systems: Pertinent positives and negatives as stated in HPI 10 point review of systems is otherwise negative. [facility] Past Medical History Source: nursing notes reviewed Social History Social History Advance Directives: No Physical Exam Vital Signs: Vital Signs: Last Vital Signs Temp 97.7 F 02/07/22 05:31 Pulse 59 02/07/22 05:31 Resp 18 02/07/22 05:31 BP 163/74 H 02/07/22 05:31 Pulse Ox 99 02/07/22 05:31 BMI result Body Mass Index 23.0 VITAL SIGNS: Reviewed. GENERAL: Well developed, well nourished, in no acute distress. HEAD: Normocephalic/atraumatic EYES: PERRLA, EOMI EARS: Ext canals without abnormality NOSE: No epistaxis currently with hemaclot located in right nostril OROPHARYNX: no oral lesions noted, posterior pharynx clear LUNGS: Normal breath sounds. No adventitious sounds or accessory muscle use. SpO2<99> CARDIOVASCULAR: Regular rate and rhythm without noted murmurs, no JVD or lower extremity edema. ABDOMEN: Soft, non-tender, non-distended with bowel sounds. NEUROLOGIC: Alert and oriented x 4. Course Course Course Narrative: 76-year-old female with history and clinical presentation consistent with chronic anticoagulation in the development of epistaxis that is currently hemostatic. Patient instructed on when to remove the dressing from her right nostril, further preventative treatments, and discharged home in stable condition. Discharge Plan Discharge Clinical Impression: Current use of anticoagulant therapy, Epistaxis Patient Disposition: Home, Self-Care Instructions: Nosebleed (ED) Additional Instructions: 1. Resume all home medications as prescribed. 2. Cool mist humidifier at the bedside while your sleeping at night to help keep your nasal mucosa moist. 3. Recommend [id number] saline spray, use this 3 times a day for additional moisture. 4. A small amount of petroleum jelly on the tip of your pinky and apply to the inside septum of your nose on each nostril. 5. Should you develop another bloody nose, blow your nose and then squirt the nasal spray that you have been provided into your nose while sniffing. Hold pressure for 5 minutes and re-evaluate. If your nose continues to bleed apply another does of the nasal spray. If you nose stops bleeding continue to observe. 6. Follow-up with your primary care provider by calling the office on Tuesday to further discuss your different options. Return to the ER for worsening symptoms. Prescriptions: No Action ezetimibe 10 mg tablet 10 mg PO DAILY 0RF tramadol 50 mg tablet 50 mg PO BID PRN (Reason: pain) Qty: 14 0RF acetaminophen [Tylenol Extra Strength] 500 mg tablet 1,000 mg PO QID PRN (Reason: fever or pain) Qty: 14 0RF warfarin 2.5 mg tablet See Rx Instructions mg .ROUTE .COMPLEX Qty: 90 0RF Protocol: Dose Management Condition: Tuesday (Week One) Dose/Route: 5 mg Instruction: 2 x 2.5 mg tablets Condition: Tuesday Dose/Route: 7.5 mg Instruction: 3 x 2.5 mg tablets Condition: Tuesday Dose/Route: 5 mg Instruction: 2 x 2.5 mg tablets Condition: Tuesday Dose/Route: 5 mg Instruction: 2 x 2.5 mg tablets Condition: Dose/Route: 7.5 mg Instruction: 3 x 2.5 mg tablets Condition: Tuesday Dose/Route: 5 mg Instruction: 2 x 2.5 mg tablets Condition: Tuesday Dose/Route: 5 mg Instruction: 2 x 2.5 mg tablets Condition: Tuesday ( Two) Dose/Route: 5 mg Instruction: 2 x 2.5 mg tablets Condition: Tuesday Dose/Route: 7.5 mg Instruction: 3 x 2.5 mg tablets Condition: Tuesday Dose/Route: 5 mg Instruction: 2 x 2.5 mg tablets Condition: Tuesday Dose/Route: 5 mg Instruction: 2 x 2.5 mg tablets Condition: Dose/Route: 7.5 mg Instruction: 3 x 2.5 mg tablets Condition: Tuesday Dose/Route: 5 mg Instruction: 2 x 2.5 mg tablets Condition: Tuesday Dose/Route: 5 mg Instruction: 2 x 2.5 mg tablets Protocol Text: Adjustment Start Date: Tuesday02/01/22 INR Value: 3.5 INR Date: 02/01/22 Recheck Date: 02/15/22 Additional Instructions: keep eating blueberries and sourkraut for bladder and your other greens decrease cranberry slightly Rx Instructions: 7.5mg x2days/ 5mg x5days; estradiol 0.01 % (0.1 mg/gram) cream vaginal 0RF pantoprazole 40 mg tablet,delayed release (DR/EC) 40 mg PO DAILY 0RF cetirizine 10 mg tablet 10 mg PO DAILY 0RF fluticasone propion-salmeterol 500-50 mcg/dose blister with device inhalation 0RF topiramate 50 mg tablet 50 mg PO DAILY 0RF alendronate 70 mg tablet 70 mg PO QWEEK 0RF methenamine hippurate 1 gram tablet 1 g PO BID 0RF mirtazapine 7.5 mg tablet 7.5 mg PO BEDTIME 0RF albuterol sulfate 90 mcg/actuation HFA aerosol inhaler 2 puff inhalation Q4H PRN (Reason: wheezing) 0RF fosfomycin tromethamine 3 gram packet 0 packet PO 0RF Prolia 60 mg/mL syringe subcut 0RF metoprolol succinate 50 mg tablet extended release 24 hr 50 mg PO DAILY 0RF cranberry fruit concentrate [Azo Cranberry] PO 0RF cyanocobalamin (vitamin B-12) 1,000 mcg capsule 1,000 mcg PO DAILY 0RF biotin 1,000 mcg tablet,chewable 1,000 mcg PO DAILY 0RF calcium carbonate-vitamin D3 [Calcium 600 with Vitamin D3] 600 mg-12.5 mcg (500 unit) capsule See Rx Instructions PO .COMPLEX 0RF Rx Instructions: PO; CRAN DEFENSE PO 0RF Metamucil (sugar) Powder 1 tbsp PO DAILY 0RF Saccharomyces boulardii [Daily Probiotic (S. boulardii)] PO 0RF ascorbic acid (vitamin C) 1,000 mg tablet 1 g PO DAILY 0RF cholecalciferol (vitamin D3) See Rx Instructions PO .COMPLEX 0RF Rx Instructions: 25 MG DAILY PO;
[2022-02-07] MEDS: Oxymetazoline HCl 0.05 % Nasal 15 ML SPRAY 2 SPRAY NOSTRIL-B (06:41)
--- NOTE | 2022-02-07 08:25 | PC.NURSE ---
PT WAS OBSERVED AFTER SHE REPORTED HER NOSE WAS LEAKING AFTER DISCHARGE. NO BLEEDING WAS NOTED AND THE PATIENT LEFT THE ED WITHOUT MD REASSESSMENT
== END 2022-02-07 08:27 | disposition home or self-care (01) ==
PROVIDERS: Emergency Provider Student in an Organized Health Care Education/Training Program
DX: R04.0 Epistaxis (principal); Z79.01 Long term (current) use of anticoagulants; Z79.899 Other long term (current) drug therapy
CPT/HCPCS: 99283

== ENCOUNTER → 2022-02-15 13:02 | Outpatient (BNVA) | payer MEDICARE, SELFPAY | PROVIDERS: PCP Internal Medicine; Visit Provider Internal Medicine | DX: I48.0 Paroxysmal atrial fibrillation (principal); Z79.01 Long term (current) use of anticoagulants; Z51.81 Encounter for therapeutic drug level monitoring | CPT/HCPCS: 85610; 99211 ==

== ENCOUNTER → 2022-02-19 13:45 | Outpatient (BNVA) | payer MEDICARE, SELFPAY | PROVIDERS: PCP Internal Medicine; Visit Provider Internal Medicine | DX: I48.0 Paroxysmal atrial fibrillation (principal); Z79.01 Long term (current) use of anticoagulants; Z51.81 Encounter for therapeutic drug level monitoring | CPT/HCPCS: 85610; 99211 ==

== ENCOUNTER → 2022-02-26 13:16 | Outpatient (BNVA) | payer MEDICARE, SELFPAY | PROVIDERS: PCP Internal Medicine; Visit Provider Internal Medicine | DX: I48.0 Paroxysmal atrial fibrillation (principal); Z79.01 Long term (current) use of anticoagulants; Z51.81 Encounter for therapeutic drug level monitoring | CPT/HCPCS: 85610; 99211 ==

== ENCOUNTER → 2022-03-10 11:37 | Outpatient (BNVA) | payer MEDICARE, SELFPAY | PROVIDERS: PCP Internal Medicine; Visit Provider Internal Medicine | DX: I48.0 Paroxysmal atrial fibrillation (principal); Z79.01 Long term (current) use of anticoagulants; Z51.81 Encounter for therapeutic drug level monitoring | CPT/HCPCS: 85610; 99211 ==

== ENCOUNTER → 2022-03-19 10:58 | Outpatient (BNVA) | payer MEDICARE, SELFPAY | PROVIDERS: PCP Internal Medicine; Visit Provider Internal Medicine | DX: I48.0 Paroxysmal atrial fibrillation (principal); Z51.81 Encounter for therapeutic drug level monitoring; Z79.01 Long term (current) use of anticoagulants | CPT/HCPCS: 85610; 99211 ==

== ENCOUNTER → 2022-04-01 11:06 | Outpatient (BNVA) | payer MEDICARE, SELFPAY | PROVIDERS: PCP Internal Medicine; Visit Provider Internal Medicine | DX: I48.0 Paroxysmal atrial fibrillation (principal); Z79.01 Long term (current) use of anticoagulants; Z51.81 Encounter for therapeutic drug level monitoring | CPT/HCPCS: 85610; 99211 ==

== ENCOUNTER → 2022-04-12 12:04 | Outpatient (BNVA) | payer MEDICARE, SELFPAY | PROVIDERS: PCP Internal Medicine; Visit Provider Internal Medicine | DX: I48.0 Paroxysmal atrial fibrillation (principal); Z79.01 Long term (current) use of anticoagulants; Z51.81 Encounter for therapeutic drug level monitoring | CPT/HCPCS: Q3014 ==

== ENCOUNTER → 2022-04-15 10:57 | Outpatient (BNVA) | payer MEDICARE, SELFPAY | PROVIDERS: PCP Internal Medicine; Visit Provider Internal Medicine | DX: I48.0 Paroxysmal atrial fibrillation (principal); Z79.01 Long term (current) use of anticoagulants; Z51.81 Encounter for therapeutic drug level monitoring | CPT/HCPCS: 85610; 99211 ==

== ENCOUNTER → 2022-04-21 11:09 | Outpatient (BNVA) | payer MEDICARE, SELFPAY | PROVIDERS: PCP Internal Medicine; Visit Provider Internal Medicine | DX: I48.0 Paroxysmal atrial fibrillation (principal); Z79.01 Long term (current) use of anticoagulants; Z51.81 Encounter for therapeutic drug level monitoring | CPT/HCPCS: 85610; 99211 ==

== ENCOUNTER → 2022-05-05 11:01 | Outpatient (BNVA) | payer MEDICARE, SELFPAY | PROVIDERS: PCP Internal Medicine; Visit Provider Internal Medicine | DX: I48.0 Paroxysmal atrial fibrillation (principal); Z79.01 Long term (current) use of anticoagulants; Z51.81 Encounter for therapeutic drug level monitoring | CPT/HCPCS: 85610; 99211 ==

== ENCOUNTER → 2022-05-26 11:00 | Outpatient (BNVA) | payer MEDICARE, SELFPAY | PROVIDERS: PCP Internal Medicine; Visit Provider Internal Medicine | DX: I48.0 Paroxysmal atrial fibrillation (principal); Z79.01 Long term (current) use of anticoagulants; Z51.81 Encounter for therapeutic drug level monitoring | CPT/HCPCS: 85610; 99211 ==

== ENCOUNTER → 2022-06-01 10:59 | Outpatient (BNVA) | payer MEDICARE, SELFPAY | PROVIDERS: PCP Internal Medicine; Visit Provider Internal Medicine | DX: I48.0 Paroxysmal atrial fibrillation (principal); Z79.01 Long term (current) use of anticoagulants; Z51.81 Encounter for therapeutic drug level monitoring | CPT/HCPCS: 85610; 99211 ==

== ENCOUNTER → 2022-06-15 11:00 | Outpatient (BNVA) | payer MEDICARE, SELFPAY | PROVIDERS: PCP Internal Medicine; Visit Provider Internal Medicine | DX: I48.0 Paroxysmal atrial fibrillation (principal); Z79.01 Long term (current) use of anticoagulants; Z51.81 Encounter for therapeutic drug level monitoring | CPT/HCPCS: 85610; 99211 ==

== ENCOUNTER → 2022-06-29 11:08 | Outpatient (BNVA) | payer MEDICARE, SELFPAY | PROVIDERS: PCP Internal Medicine; Visit Provider Internal Medicine | DX: I48.0 Paroxysmal atrial fibrillation (principal); Z51.81 Encounter for therapeutic drug level monitoring; Z79.01 Long term (current) use of anticoagulants | CPT/HCPCS: 85610; 99211 ==

== ENCOUNTER → 2022-07-06 11:11 | Outpatient (BNVA) | payer MEDICARE, SELFPAY | PROVIDERS: PCP Internal Medicine; Visit Provider Internal Medicine | DX: I48.0 Paroxysmal atrial fibrillation (principal); Z79.01 Long term (current) use of anticoagulants; Z51.81 Encounter for therapeutic drug level monitoring | CPT/HCPCS: 85610; 99211 ==

== ENCOUNTER → 2022-07-20 10:45 | Outpatient (BNVA) | payer MEDICARE, SELFPAY | PROVIDERS: PCP Internal Medicine; Visit Provider Internal Medicine | DX: I48.0 Paroxysmal atrial fibrillation (principal); Z79.01 Long term (current) use of anticoagulants; Z51.81 Encounter for therapeutic drug level monitoring | CPT/HCPCS: 85610; 99211 ==

== ENCOUNTER → 2022-08-02 11:15 | Outpatient (BNVA) | payer MEDICARE, SELFPAY | PROVIDERS: PCP Internal Medicine; Visit Provider Internal Medicine | DX: I48.0 Paroxysmal atrial fibrillation (principal); Z79.01 Long term (current) use of anticoagulants; Z51.81 Encounter for therapeutic drug level monitoring | CPT/HCPCS: 85610; 99211 ==

== ENCOUNTER → 2022-08-16 11:08 | Outpatient (BNVA) | payer MEDICARE, SELFPAY | PROVIDERS: PCP Internal Medicine; Visit Provider Internal Medicine | DX: I48.0 Paroxysmal atrial fibrillation (principal); Z79.01 Long term (current) use of anticoagulants; Z51.81 Encounter for therapeutic drug level monitoring | CPT/HCPCS: 85610; 99211 ==

== ENCOUNTER → 2022-08-30 10:59 | Outpatient (BNVA) | payer MEDICARE, SELFPAY | PROVIDERS: PCP Internal Medicine; Visit Provider Internal Medicine | DX: I48.0 Paroxysmal atrial fibrillation (principal); Z79.01 Long term (current) use of anticoagulants; Z51.81 Encounter for therapeutic drug level monitoring | CPT/HCPCS: 85610; 99211 ==

== ENCOUNTER → 2022-09-09 11:00 | Outpatient (BNVA) | payer MEDICARE, SELFPAY | PROVIDERS: PCP Internal Medicine; Visit Provider Internal Medicine | DX: I48.0 Paroxysmal atrial fibrillation (principal); Z79.01 Long term (current) use of anticoagulants; Z51.81 Encounter for therapeutic drug level monitoring | CPT/HCPCS: 85610; 99211 ==

== ENCOUNTER → 2022-09-22 11:05 | Outpatient (BNVA) | payer MEDICARE, SELFPAY | PROVIDERS: PCP Internal Medicine; Visit Provider Internal Medicine | DX: I48.0 Paroxysmal atrial fibrillation (principal); Z79.01 Long term (current) use of anticoagulants; Z51.81 Encounter for therapeutic drug level monitoring | CPT/HCPCS: 85610; 99211 ==

== ENCOUNTER → 2022-10-06 11:18 | Outpatient (BNVA) | payer MEDICARE, SELFPAY | PROVIDERS: PCP Internal Medicine; Visit Provider Internal Medicine | DX: I48.0 Paroxysmal atrial fibrillation (principal); Z51.81 Encounter for therapeutic drug level monitoring; Z79.01 Long term (current) use of anticoagulants | CPT/HCPCS: 85610; 99211 ==

== ENCOUNTER → 2022-10-20 10:56 | Outpatient (BNVA) | payer MEDICARE, SELFPAY | PROVIDERS: PCP Internal Medicine; Visit Provider Internal Medicine | DX: I48.0 Paroxysmal atrial fibrillation (principal); Z79.01 Long term (current) use of anticoagulants; Z51.81 Encounter for therapeutic drug level monitoring | CPT/HCPCS: 85610; 99211 ==

== ENCOUNTER → 2022-11-03 10:29 | Outpatient (BNVA) | payer MEDICARE, SELFPAY | PROVIDERS: PCP Internal Medicine; Visit Provider Internal Medicine | DX: I48.0 Paroxysmal atrial fibrillation (principal); Z79.01 Long term (current) use of anticoagulants; Z51.81 Encounter for therapeutic drug level monitoring | CPT/HCPCS: 85610; 99211 ==

== ENCOUNTER → 2022-11-17 10:52 | Outpatient (BNVA) | payer MEDICARE, SELFPAY | PROVIDERS: PCP Internal Medicine; Visit Provider Internal Medicine | DX: I48.0 Paroxysmal atrial fibrillation (principal); Z79.01 Long term (current) use of anticoagulants; Z51.81 Encounter for therapeutic drug level monitoring | CPT/HCPCS: 85610; 99211 ==

== ENCOUNTER → 2022-12-01 10:49 | Outpatient (BNVA) | payer MEDICARE, SELFPAY | PROVIDERS: PCP Internal Medicine; Visit Provider Internal Medicine | DX: I48.0 Paroxysmal atrial fibrillation (principal); Z79.01 Long term (current) use of anticoagulants; Z51.81 Encounter for therapeutic drug level monitoring | CPT/HCPCS: 85610; 99211 ==

== ENCOUNTER → 2022-12-08 11:01 | Outpatient (BNVA) | payer MEDICARE, SELFPAY | PROVIDERS: PCP Internal Medicine; Visit Provider Internal Medicine | DX: I48.0 Paroxysmal atrial fibrillation (principal); Z79.01 Long term (current) use of anticoagulants; Z51.81 Encounter for therapeutic drug level monitoring | CPT/HCPCS: 85610; 99211 ==

== ENCOUNTER → 2022-12-22 10:45 | Outpatient (BNVA) | payer MEDICARE, SELFPAY | PROVIDERS: PCP Internal Medicine; Visit Provider Internal Medicine | DX: I48.0 Paroxysmal atrial fibrillation (principal); Z51.81 Encounter for therapeutic drug level monitoring; Z79.01 Long term (current) use of anticoagulants | CPT/HCPCS: 85610; 99211 ==

== ENCOUNTER → 2023-01-12 11:14 | Outpatient (BNVA) | payer MEDICARE, SELFPAY | PROVIDERS: PCP Internal Medicine; Visit Provider Internal Medicine | DX: I48.0 Paroxysmal atrial fibrillation (principal); Z79.01 Long term (current) use of anticoagulants; Z51.81 Encounter for therapeutic drug level monitoring | CPT/HCPCS: 85610; 99211 ==

== ENCOUNTER → 2023-02-09 11:05 | Outpatient (BNVA) | payer MEDICARE, SELFPAY | PROVIDERS: PCP Internal Medicine; Visit Provider Internal Medicine | DX: I48.0 Paroxysmal atrial fibrillation (principal); Z79.01 Long term (current) use of anticoagulants; Z51.81 Encounter for therapeutic drug level monitoring | CPT/HCPCS: 85610; 99211 ==

== ENCOUNTER → 2023-03-09 10:57 | Outpatient (BNVA) | payer MEDICARE, SELFPAY | PROVIDERS: PCP Internal Medicine; Visit Provider Internal Medicine | DX: I48.0 Paroxysmal atrial fibrillation (principal); Z79.01 Long term (current) use of anticoagulants; Z51.81 Encounter for therapeutic drug level monitoring | CPT/HCPCS: 85610; 99211 ==

== ENCOUNTER 2023-03-17 10:50 | Outpatient (REF) | payer MEDICARE, SELFPAY ==
--- NOTE | ~2023-03-17 | US_ITS ---
EXAMINATION: US RETROPERITONEAL COMPLETE (RENAL) CLINICAL INFORMATION: Kidney stone. History of UTI. COMPARISON: CTA abdomen and pelvis 08/25/2018. X-ray abdomen 10/21/2015. TECHNIQUE: Real-time imaging of the kidneys and bladder. FINDINGS: RIGHT KIDNEY: 10.1 x 3.8 x 5.6 cm (SAG x AP x TRV). The kidney is normal in size, contour, and echogenicity. Renal cortical thickness is normal. No renal calculi or hydronephrosis. Midpole cyst measures 3.1 x 2.9 x 3.4 cm with calcification. LEFT KIDNEY: 8.8 x 4.3 x 4.6 cm (SAG x AP x TRV). The kidney is normal in size, contour, and echogenicity. Renal cortical thickness is normal. No focal parenchymal lesions or hydronephrosis. 4 mm nonobstructing calculus in the midpole. 4 mm nonobstructing calculus lower pole. BLADDER: Well distended and normal. Bilateral ureteral jets are demonstrated. Prevoid bladder volume is 167 mL. Postvoid bladder volume is 32 mL. ADDITIONAL FINDINGS: Sludge and stones in the gallbladder. US/US retroperitoneal comp IMPRESSION: Right renal cyst. No suspicious features. Nonobstructing left renal calculi. No hydronephrosis.
== END 2023-03-17 10:51 | disposition home or self-care (01) ==
LOC: HO.US 10:50
PROVIDERS: PCP Internal Medicine; Visit Provider Physician Assistant
DX: N20.0 Calculus of kidney (principal); Z87.440 Personal history of urinary (tract) infections
CPT/HCPCS: 76770

== ENCOUNTER 2023-03-21 10:47 | Outpatient (AMB) | payer MEDICARE, SELFPAY ==
--- NOTE | 2023-03-21 10:59 | MHC.OFFVISCO ---
Intake Intake Visit Reasons: Anticoagulation Allergies memantine Allergy (Severe, Verified 03/21/23 10:51) RAGE nitrofurantoin Allergy (Intermediate, Verified 03/21/23 10:51) RASH oseltamivir [From Tamiflu] Allergy (Intermediate, Verified 03/21/23 10:51) RASH oxycodone [From PERCOCET] Allergy (Unknown, Verified 03/21/23 10:51) UNKNOWN Penicillins [PENICILLINS] Allergy (Unknown, Verified 03/21/23 10:51) UNKNOWN Sulfa (Sulfonamide Antibiotics) [SULFA (SULFONAMIDE ANTIBIOTICS)] Allergy (Unknown, Verified 03/21/23 10:51) UNKNOWN Medication List - Last Reconciled 03/21/23 by Petra Petersen RN acetaminophen (Tylenol Extra Strength) 1,000 mg (2 x 500 mg) PO QID PRN alendronate 70 mg PO QWEEK ascorbic acid (vitamin C) 1 g PO DAILY azithromycin 500 mg PO DAILY biotin 1,000 mcg PO DAILY calcium carbonate-vitamin D3 600 mg-12.5 mcg (500 unit) (Calcium 600 with Vitamin D3) calcium 1200, vit d 25mcg cetirizine 10 mg PO DAILY cholecalciferol (vitamin D3) 25 MG DAILY PO; cranberry fruit concentrate (Azo Cranberry) PO cyanocobalamin (vitamin B-12) 1,000 mcg PO DAILY docusate sodium 100 mg PO BID estradiol 0.01%(0.1mg/gram) grams vaginal 2XW ezetimibe 10 mg PO DAILY methenamine hippurate 1 g PO BID metoprolol succinate ER 50 mg PO BID mirtazapine 7.5 mg PO BEDTIME Saccharomyces boulardii (Daily Probiotic (S. boulardii)) PO simethicone (Gas Relief (simethicone)) PO topiramate 50 mg PO DAILY warfarin See Protocol 7.5mg x2days/ 5mg x5days; Nursing Note INR 3.2-?? out of therapeutic range Medications and supplements reviewed Patient status: no c.o Medications or supplements: pt taking gemtesa for urin incont- for approx 2 weeks Diet: same Denies any signs and symptoms of bleeding or clotting or unusual bruising Bleeding, bruising, clotting discussed Nutritional guidance given: has not had reds Dose: pt req weekly dosing reduced- 5mg x 3, 2.5mg x 4 F/U INR Date : 2 weeks? Patient verbalizing understanding of instructions given. Coding Level of Care Code Est Patient Level 1 Diagnoses Current use of anticoagulant therapy Z79.01 Results AMB INR Fingerstick AMB INR Fingerstick 3.2 Last Edit by Petra Petersen RN on 03/21/23 11:02 Assessment & Plan Assessment & Plan (1) Current use of anticoagulant therapy: Code(s): Z79.01 - group home (current) use of anticoagulants Category: Medical Medications: New vibegron (Gemtesa) 75 mg PO DAILY
[2023-03-22 15:40] LABS: Prothrombin Time Whole Bld POC 38.2 sec (11.1-13.5); ~PT, ~INR - Anti Coag Clinic 3.2 (0.9-1.1)
== END 2023-03-21 11:11 | disposition home or self-care (01) ==
LOC: HO.ACS 10:47
PROVIDERS: PCP Internal Medicine; Visit Provider Internal Medicine
DX: Z79.01 Long term (current) use of anticoagulants (principal)

== ENCOUNTER → 2023-03-21 10:47 | Outpatient (BNVA) | payer MEDICARE, SELFPAY | PROVIDERS: PCP Internal Medicine; Visit Provider Internal Medicine | DX: I48.0 Paroxysmal atrial fibrillation (principal); Z79.01 Long term (current) use of anticoagulants; Z51.81 Encounter for therapeutic drug level monitoring | CPT/HCPCS: 85610; 99211 ==

== ENCOUNTER 2023-04-05 11:02 | Outpatient (AMB) | payer MEDICARE, SELFPAY ==
--- NOTE | 2023-04-05 11:27 | MHC.OFFVISCO ---
Intake Intake Visit Reasons: Anticoagulation Allergies memantine Allergy (Severe, Verified 04/05/23 11:23) RAGE nitrofurantoin Allergy (Intermediate, Verified 04/05/23 11:23) RASH oseltamivir [From Tamiflu] Allergy (Intermediate, Verified 04/05/23 11:23) RASH oxycodone [From PERCOCET] Allergy (Unknown, Verified 04/05/23 11:23) UNKNOWN Penicillins [PENICILLINS] Allergy (Unknown, Verified 04/05/23 11:23) UNKNOWN Sulfa (Sulfonamide Antibiotics) [SULFA (SULFONAMIDE ANTIBIOTICS)] Allergy (Unknown, Verified 04/05/23 11:23) UNKNOWN Medication List - Last Reconciled 04/05/23 by Petra Petersen RN acetaminophen (Tylenol Extra Strength) 1,000 mg (2 x 500 mg) PO QID PRN alendronate 70 mg PO QWEEK ascorbic acid (vitamin C) 1 g PO DAILY azithromycin 500 mg PO DAILY biotin 1,000 mcg PO DAILY calcium carbonate-vitamin D3 600 mg-12.5 mcg (500 unit) (Calcium 600 with Vitamin D3) calcium 1200, vit d 25mcg cetirizine 10 mg PO DAILY cholecalciferol (vitamin D3) 25 MG DAILY PO; cranberry fruit concentrate (Azo Cranberry) PO cyanocobalamin (vitamin B-12) 1,000 mcg PO DAILY docusate sodium 100 mg PO BID estradiol 0.01%(0.1mg/gram) grams vaginal 2XW ezetimibe 10 mg PO DAILY methenamine hippurate 1 g PO BID metoprolol succinate ER 50 mg PO BID mirtazapine 7.5 mg PO BEDTIME Saccharomyces boulardii (Daily Probiotic (S. boulardii)) PO simethicone (Gas Relief (simethicone)) PO topiramate 50 mg PO DAILY vibegron (Gemtesa) 75 mg PO DAILY warfarin See Protocol 7.5mg x2days/ 5mg x5days; Nursing Note INR: 3.0- in therapeutic range Medications and supplements reviewed No changes in health, diet, medications, or supplements, Denies any signs and symptoms of bleeding or bruising or clotting. Bleeding, bruising, clotting discussed Nutritional guidance given - have a green today Dose: 5mg x 3, 2.5mg x 4 F/U INR: 2 weeks Patient verbalizes understanding of instructions given Coding Level of Care Code Est Patient Level 1 Diagnoses Current use of anticoagulant therapy Z79.01 Results AMB INR Fingerstick AMB INR Fingerstick 3.0 Last Edit by Petra Petersen RN on 04/05/23 11:29 Assessment & Plan Assessment & Plan (1) Current use of anticoagulant therapy: Code(s): Z79.01 - retirement (current) use of anticoagulants Category: Medical
[2023-04-05 11:28] LABS: Prothrombin Time Whole Bld POC 36.1 sec (11.1-13.5)
== END 2023-04-05 11:33 | disposition home or self-care (01) ==
LOC: HO.ACS 11:02
PROVIDERS: PCP Internal Medicine; Visit Provider Internal Medicine
DX: Z79.01 Long term (current) use of anticoagulants (principal)

== ENCOUNTER → 2023-04-05 11:02 | Outpatient (BNVA) | payer MEDICARE, SELFPAY | PROVIDERS: PCP Internal Medicine; Visit Provider Internal Medicine | DX: I48.0 Paroxysmal atrial fibrillation (principal); Z79.01 Long term (current) use of anticoagulants; Z51.81 Encounter for therapeutic drug level monitoring | CPT/HCPCS: 85610; 99211 ==

== ENCOUNTER 2023-04-19 10:47 | Outpatient (AMB) | payer MEDICARE, SELFPAY ==
[2023-04-19 10:55] LABS: Prothrombin Time Whole Bld POC 35.8 sec (11.1-13.5)
--- NOTE | 2023-04-19 11:01 | MHC.OFFVISCO ---
Intake Intake Visit Reasons: Anticoagulation Allergies memantine Allergy (Severe, Verified 04/19/23 10:49) RAGE nitrofurantoin Allergy (Intermediate, Verified 04/19/23 10:49) RASH oseltamivir [From Tamiflu] Allergy (Intermediate, Verified 04/19/23 10:49) RASH oxycodone [From PERCOCET] Allergy (Unknown, Verified 04/19/23 10:49) UNKNOWN Penicillins [PENICILLINS] Allergy (Unknown, Verified 04/19/23 10:49) UNKNOWN Sulfa (Sulfonamide Antibiotics) [SULFA (SULFONAMIDE ANTIBIOTICS)] Allergy (Unknown, Verified 04/19/23 10:49) UNKNOWN Medication List - Last Reconciled 04/19/23 by Petra Petersen RN acetaminophen (Tylenol Extra Strength) 1,000 mg (2 x 500 mg) PO QID PRN alendronate 70 mg PO QWEEK ascorbic acid (vitamin C) 1 g PO DAILY azithromycin 500 mg PO DAILY biotin 1,000 mcg PO DAILY calcium carbonate-vitamin D3 600 mg-12.5 mcg (500 unit) (Calcium 600 with Vitamin D3) calcium 1200, vit d 25mcg cetirizine 10 mg PO DAILY PRN cholecalciferol (vitamin D3) 25 MG DAILY PO; cranberry fruit concentrate (Azo Cranberry) PO cyanocobalamin (vitamin B-12) 1,000 mcg PO DAILY docusate sodium 100 mg PO BID estradiol 0.01%(0.1mg/gram) grams vaginal 2XW ezetimibe 10 mg PO DAILY methenamine hippurate 1 g PO BID metoprolol succinate ER 50 mg PO BID mirtazapine 7.5 mg PO BEDTIME Saccharomyces boulardii (Daily Probiotic (S. boulardii)) PO simethicone (Gas Relief (simethicone)) PO topiramate 50 mg PO DAILY vibegron (Gemtesa) 75 mg PO DAILY warfarin See Protocol 7.5mg x2days/ 5mg x5days; Nursing Note INR: 3.0- in therapeutic range Medications and supplements reviewed- no changes No changes in health, diet, medications, or supplements, Denies any signs and symptoms of bleeding or bruising or clotting. Bleeding, bruising, clotting discussed Nutritional guidance given- eat a green today Dose: 5mg x 3, 2.5mg x 4 F/U INR: 2 weeks Patient verbalizes understanding of instructions given Coding Level of Care Code Est Patient Level 1 Diagnoses Current use of anticoagulant therapy Z79.01 Assessment & Plan Assessment & Plan (1) Current use of anticoagulant therapy: Code(s): Z79.01 - longterm (current) use of anticoagulants Category: Medical Medications: New azithromycin take 2 tablets one hour prior to dental visit 500 mg PO ONCE PRN
== END 2023-04-19 11:09 | disposition home or self-care (01) ==
LOC: HO.ACS 10:47
PROVIDERS: PCP Internal Medicine; Visit Provider Internal Medicine
DX: Z79.01 Long term (current) use of anticoagulants (principal)

== ENCOUNTER → 2023-04-19 10:47 | Outpatient (BNVA) | payer MEDICARE, SELFPAY | PROVIDERS: PCP Internal Medicine; Visit Provider Internal Medicine | DX: I48.0 Paroxysmal atrial fibrillation (principal); Z79.01 Long term (current) use of anticoagulants; Z51.81 Encounter for therapeutic drug level monitoring | CPT/HCPCS: 85610; 99211 ==

== ENCOUNTER 2023-05-03 10:57 | Outpatient (AMB) | payer MEDICARE, SELFPAY ==
--- NOTE | 2023-05-03 11:12 | MHC.OFFVISCO ---
Intake Intake Visit Reasons: Anticoagulation Allergies memantine Allergy (Severe, Verified 05/03/23 11:00) RAGE nitrofurantoin Allergy (Intermediate, Verified 05/03/23 11:00) RASH oseltamivir [From Tamiflu] Allergy (Intermediate, Verified 05/03/23 11:00) RASH oxycodone [From PERCOCET] Allergy (Unknown, Verified 05/03/23 11:00) UNKNOWN Penicillins [PENICILLINS] Allergy (Unknown, Verified 05/03/23 11:00) UNKNOWN Sulfa (Sulfonamide Antibiotics) [SULFA (SULFONAMIDE ANTIBIOTICS)] Allergy (Unknown, Verified 05/03/23 11:00) UNKNOWN Medication List - Last Reconciled 05/03/23 by Aby Schuler RN acetaminophen (Tylenol Extra Strength) 1,000 mg (2 x 500 mg) PO QID PRN alendronate 70 mg PO QWEEK ascorbic acid (vitamin C) (Vitamin C) 500 mg PO TID azithromycin 500 mg PO ONCE PRN biotin 5,000 mcg PO DAILY calcium carbonate-vitamin D3 600 mg-12.5 mcg (500 unit) (Calcium 600 with Vitamin D3) calcium 1200, vit d 25mcg cetirizine 10 mg PO DAILY PRN cholecalciferol (vitamin D3) 250 McG DAILY PO; cranberry fruit concentrate (Azo Cranberry) PO BID docusate sodium 100 mg PO BID estradiol 0.01%(0.1mg/gram) grams vaginal 2XW ezetimibe 10 mg PO DAILY magnesium oxide 500 mg PO DAILY mecobalamin (vitamin B12) mcg PO DAILY methenamine hippurate 1 g PO BID metoprolol succinate ER 75 mg PO BID mirtazapine 7.5 mg PO BEDTIME psyllium husk (Metamucil) 0.4 grams PO DAILY Saccharomyces boulardii (Daily Probiotic (S. boulardii)) PO simethicone (Gas Relief (simethicone)) PO topiramate 50 mg PO DAILY vibegron (Gemtesa) 75 mg PO DAILY warfarin See Protocol 7.5mg x2days/ 5mg x5days; Nursing Note INR: 2.3 in therapeutic range Medications and supplements reviewed No changes in health, diet, medications, or supplements, Denies any signs and symptoms of bleeding or bruising or clotting. 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
[2023-05-03 11:15] LABS: Prothrombin Time Whole Bld POC 27.6 sec (11.1-13.5); ~PT, ~INR - Anti Coag Clinic 2.3 (0.9-1.1)
== END 2023-05-03 11:13 | disposition home or self-care (01) ==
LOC: HO.ACS 10:57
PROVIDERS: PCP Internal Medicine; Visit Provider Internal Medicine
DX: Z79.01 Long term (current) use of anticoagulants (principal)

== ENCOUNTER → 2023-05-03 10:57 | Outpatient (BNVA) | payer MEDICARE, SELFPAY | PROVIDERS: PCP Internal Medicine; Visit Provider Internal Medicine | DX: I48.0 Paroxysmal atrial fibrillation (principal); Z79.01 Long term (current) use of anticoagulants; Z51.81 Encounter for therapeutic drug level monitoring | CPT/HCPCS: 85610; 99211 ==

== ENCOUNTER 2023-05-24 10:59 | Outpatient (AMB) | payer MEDICARE, SELFPAY ==
[2023-05-24 11:25] LABS: Prothrombin Time Whole Bld POC 27.3 sec (11.1-13.5); ~PT, ~INR - Anti Coag Clinic 2.3 (0.9-1.1)
--- NOTE | 2023-05-24 11:27 | MHC.OFFVISCO ---
Intake Intake Visit Reasons: Anticoagulation Allergies memantine Allergy (Severe, Verified 05/24/23 11:08) RAGE nitrofurantoin Allergy (Intermediate, Verified 05/24/23 11:08) RASH oseltamivir [From Tamiflu] Allergy (Intermediate, Verified 05/24/23 11:08) RASH oxycodone [From PERCOCET] Allergy (Unknown, Verified 05/24/23 11:08) UNKNOWN Penicillins [PENICILLINS] Allergy (Unknown, Verified 05/24/23 11:08) UNKNOWN Sulfa (Sulfonamide Antibiotics) [SULFA (SULFONAMIDE ANTIBIOTICS)] Allergy (Unknown, Verified 05/24/23 11:08) UNKNOWN Medication List - Last Reconciled 05/24/23 by Criselda Shoemaker RN acetaminophen (Tylenol Extra Strength) 1,000 mg (2 x 500 mg) PO QID PRN alendronate 70 mg PO QWEEK ascorbic acid (vitamin C) (Vitamin C) 500 mg PO TID azithromycin 500 mg PO ONCE PRN biotin 5,000 mcg PO DAILY calcium carbonate-vitamin D3 600 mg-12.5 mcg (500 unit) (Calcium 600 with Vitamin D3) calcium 1200, vit d 25mcg cetirizine 10 mg PO DAILY PRN cholecalciferol (vitamin D3) 250 McG DAILY PO; cranberry fruit concentrate (Azo Cranberry) PO BID docusate sodium 100 mg PO BID estradiol 0.01%(0.1mg/gram) grams vaginal 2XW ezetimibe 10 mg PO DAILY fluticasone propion-salmeterol 500-50 mcg/dose (Advair Diskus) 1 inh inhalation BID magnesium oxide 500 mg PO DAILY mecobalamin (vitamin B12) mcg PO DAILY methenamine hippurate 1 g PO BID metoprolol succinate ER 75 mg PO BID mirtazapine 7.5 mg PO BEDTIME psyllium husk (Metamucil) 0.4 grams PO DAILY Saccharomyces boulardii (Daily Probiotic (S. boulardii)) PO simethicone (Gas Relief (simethicone)) PO topiramate 50 mg PO DAILY vibegron (Gemtesa) 75 mg PO DAILY warfarin See Protocol 7.5mg x2days/ 5mg x5days; Nursing Note Amb to ACS using 2 canes, accomp by spouse, feeling stressed, son just diagnosed with non hodgkins lymphoma Medications and supplements reviewed, Emar updated from pts med index cards advair and albuterol missing from our records pt to find out dosing of albuterol No other changes in health, diet, medications, or supplements Denies any unusual signs and symptoms of bruising, bleeding Denies any new Chest pain, SOB, or clotting INR: 2.3 in therapeutic range Nutritional guidance given: balance greens and reds in diet, be consistent Dose: continue usual dosing;5mg x 3 days, and 2.5mg x 4 days F/U INR: 3 weeks Patient verbalizes understanding of instructions given with accurate read back/ teach back of dosing Coding Level of Care Code Est Patient Level 1 Diagnoses Current use of anticoagulant therapy Z79.01 Time Spent (min) 15 Assessment & Plan Assessment & Plan (1) Current use of anticoagulant therapy: Code(s): 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
== END 2023-05-24 11:33 | disposition home or self-care (01) ==
LOC: HO.ACS 10:59
PROVIDERS: PCP Internal Medicine; Visit Provider Internal Medicine
DX: Z79.01 Long term (current) use of anticoagulants (principal)

== ENCOUNTER → 2023-05-24 10:59 | Outpatient (BNVA) | payer MEDICARE, SELFPAY | PROVIDERS: PCP Internal Medicine; Visit Provider Internal Medicine | DX: I48.0 Paroxysmal atrial fibrillation (principal); Z79.01 Long term (current) use of anticoagulants; Z51.81 Encounter for therapeutic drug level monitoring | CPT/HCPCS: 85610; 99211 ==

== ENCOUNTER 2023-06-14 10:55 | Outpatient (AMB) | payer MEDICARE, SELFPAY ==
[2023-06-14 11:06] LABS: Prothrombin Time Whole Bld POC 28.2 sec (11.1-13.5); ~PT, ~INR - Anti Coag Clinic 2.3 (0.9-1.1)
--- NOTE | 2023-06-14 11:06 | MHC.OFFVISCO ---
Intake Intake Visit Reasons: Anticoagulation Allergies memantine Allergy (Severe, Verified 06/14/23 10:58) RAGE nitrofurantoin Allergy (Intermediate, Verified 06/14/23 10:58) RASH oseltamivir [From Tamiflu] Allergy (Intermediate, Verified 06/14/23 10:58) RASH oxycodone [From PERCOCET] Allergy (Unknown, Verified 06/14/23 10:58) UNKNOWN Penicillins [PENICILLINS] Allergy (Unknown, Verified 06/14/23 10:58) UNKNOWN Sulfa (Sulfonamide Antibiotics) [SULFA (SULFONAMIDE ANTIBIOTICS)] Allergy (Unknown, Verified 06/14/23 10:58) UNKNOWN Medication List - Last Reconciled 06/14/23 by Petra Petersen RN acetaminophen (Tylenol Extra Strength) 1,000 mg (2 x 500 mg) PO QID PRN alendronate 70 mg PO QWEEK ascorbic acid (vitamin C) (Vitamin C) 500 mg PO TID azithromycin 500 mg PO ONCE PRN biotin 5,000 mcg PO DAILY calcium carbonate-vitamin D3 600 mg-12.5 mcg (500 unit) (Calcium 600 with Vitamin D3) calcium 1200, vit d 25mcg cetirizine 10 mg PO DAILY PRN cholecalciferol (vitamin D3) 250 McG DAILY PO; cranberry fruit concentrate (Azo Cranberry) PO BID docusate sodium 100 mg PO BID estradiol 0.01%(0.1mg/gram) grams vaginal 2XW ezetimibe 10 mg PO DAILY fluticasone propion-salmeterol 500-50 mcg/dose (Advair Diskus) 1 inh inhalation BID magnesium oxide 500 mg PO DAILY mecobalamin (vitamin B12) mcg PO DAILY methenamine hippurate 1 g PO BID metoprolol succinate ER 75 mg PO BID mirtazapine 7.5 mg PO BEDTIME psyllium husk (Metamucil) 0.4 grams PO DAILY Saccharomyces boulardii (Daily Probiotic (S. boulardii)) PO simethicone (Gas Relief (simethicone)) PO topiramate 50 mg PO DAILY vibegron (Gemtesa) 75 mg PO DAILY warfarin See Protocol 7.5mg x2days/ 5mg x5days; Nursing Note INR: 2.3- in therapeutic range Medications and supplements reviewed No changes in health, diet, medications, or supplements, Denies any signs and symptoms of bleeding or bruising or clotting. 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
== END 2023-06-14 11:15 | disposition home or self-care (01) ==
LOC: HO.ACS 10:55
PROVIDERS: PCP Internal Medicine; Visit Provider Internal Medicine
DX: Z79.01 Long term (current) use of anticoagulants (principal)

== ENCOUNTER → 2023-06-14 10:55 | Outpatient (BNVA) | payer MEDICARE, SELFPAY | PROVIDERS: PCP Internal Medicine; Visit Provider Internal Medicine | DX: I48.0 Paroxysmal atrial fibrillation (principal); Z51.81 Encounter for therapeutic drug level monitoring; Z79.01 Long term (current) use of anticoagulants | CPT/HCPCS: 85610; 99211 ==

== ENCOUNTER 2023-07-05 11:24 | Outpatient (AMB) | payer MEDICARE, SELFPAY ==
--- NOTE | 2023-07-05 11:37 | MHC.OFFVISCO ---
Intake Intake Visit Reasons: Anticoagulation Allergies memantine Allergy (Severe, Verified 06/14/23 10:58) RAGE nitrofurantoin Allergy (Intermediate, Verified 06/14/23 10:58) RASH oseltamivir [From Tamiflu] Allergy (Intermediate, Verified 06/14/23 10:58) RASH oxycodone [From PERCOCET] Allergy (Unknown, Verified 06/14/23 10:58) UNKNOWN Penicillins [PENICILLINS] Allergy (Unknown, Verified 06/14/23 10:58) UNKNOWN Sulfa (Sulfonamide Antibiotics) [SULFA (SULFONAMIDE ANTIBIOTICS)] Allergy (Unknown, Verified 06/14/23 10:58) UNKNOWN Nursing Note INR: 2.5- in therapeutic range 2-3 Medications and supplements reviewed- had rsv vaccine yesterday No changes in health, diet, medications, or supplements, Denies any signs and symptoms of bleeding or bruising or clotting. 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
[2023-07-05 11:38] LABS: Prothrombin Time Whole Bld POC 30.5 sec (11.1-13.5); ~PT, ~INR - Anti Coag Clinic 2.5 (0.9-1.1)
== END 2023-07-05 13:37 | disposition home or self-care (01) ==
LOC: HO.ACS 11:24
PROVIDERS: PCP Internal Medicine; Visit Provider Internal Medicine
DX: Z79.01 Long term (current) use of anticoagulants (principal)

== ENCOUNTER → 2023-07-05 11:24 | Outpatient (BNVA) | payer MEDICARE, SELFPAY | PROVIDERS: PCP Internal Medicine; Visit Provider Internal Medicine | DX: I48.0 Paroxysmal atrial fibrillation (principal); Z79.01 Long term (current) use of anticoagulants; Z51.81 Encounter for therapeutic drug level monitoring | CPT/HCPCS: 85610; 99211 ==

== ENCOUNTER 2023-07-18 11:34 | Outpatient (AMB) | payer MEDICARE, SELFPAY ==
[2023-07-18 11:41] LABS: Prothrombin Time Whole Bld POC 21.4 sec (11.1-13.5); ~PT, ~INR - Anti Coag Clinic 1.8 (0.9-1.1)
--- NOTE | 2023-07-18 11:46 | MHC.OFFVISCO ---
Intake Intake Visit Reasons: Anticoagulation Allergies memantine Allergy (Severe, Verified 07/18/23 11:36) RAGE nitrofurantoin Allergy (Intermediate, Verified 07/18/23 11:36) RASH oseltamivir [From Tamiflu] Allergy (Intermediate, Verified 07/18/23 11:36) RASH oxycodone [From PERCOCET] Allergy (Unknown, Verified 07/18/23 11:36) UNKNOWN Penicillins [PENICILLINS] Allergy (Unknown, Verified 07/18/23 11:36) UNKNOWN Sulfa (Sulfonamide Antibiotics) [SULFA (SULFONAMIDE ANTIBIOTICS)] Allergy (Unknown, Verified 07/18/23 11:36) UNKNOWN Medication List - Last Reconciled 07/18/23 by Criselda Shoemaker RN acetaminophen (Tylenol Extra Strength) 1,000 mg (2 x 500 mg) PO QID PRN albuterol sulfate 90 mcg/actuation 2 puffs inhalation Q4-6H PRN alendronate 70 mg PO QWEEK ascorbic acid (vitamin C) (Vitamin C) 500 mg PO TID azithromycin 500 mg PO ONCE PRN biotin 5,000 mcg PO DAILY calcium carbonate-vitamin D3 600 mg-12.5 mcg (500 unit) (Calcium 600 with Vitamin D3) calcium 1200, vit d 25mcg cetirizine 10 mg PO DAILY PRN cholecalciferol (vitamin D3) 250 McG DAILY PO; cranberry fruit concentrate (Azo Cranberry) PO BID docusate sodium 100 mg PO BID estradiol 0.01%(0.1mg/gram) grams vaginal 2XW ezetimibe 10 mg PO DAILY fluticasone propion-salmeterol 500-50 mcg/dose (Advair Diskus) 1 inh inhalation BID magnesium oxide 500 mg PO DAILY mecobalamin (vitamin B12) mcg PO DAILY methenamine hippurate 1 g PO BID metoprolol succinate ER 75 mg PO BID mirtazapine 7.5 mg PO BEDTIME psyllium husk (Metamucil) 0.4 grams PO DAILY Saccharomyces boulardii (Daily Probiotic (S. boulardii)) PO simethicone (Gas Relief (simethicone)) PO topiramate 50 mg PO DAILY vibegron (Gemtesa) 75 mg PO DAILY warfarin See Protocol 7.5mg x2days/ 5mg x5days; Nursing Note Amb to ACS using 2 canes, accomp by spouse feeling OK Medications and supplements reviewed, within past few weeks had covid booster, flu vaccine, and most recently RSV vaccine No changes in health, diet, medications, or supplements Denies any unusual signs and symptoms of bruising, bleeding Denies any new Chest pain, SOB, or clotting INR:1.8 below therapeutic range Nutritional guidance given: balance greens and reds in diet Dose: increase dose today to 7.5mg then resume usual dosing tomorrow;5mg x 3 days and 2.5mg x 4 days F/U INR: 2 weeks Patient and verbalizes understanding of instructions given with accurate read back/ teach back of dosing Questionnaires HAS-BLED Does the patient had uncontrolled Hypertension?: No Does the patient have renal disease?: No Does the patient have liver disease?: No Does the patient have a history of stroke?: Yes Has the patient had major bleeding or predisposition to bleeding?: Yes Does the patient have labile INRs?: Yes Is the patient over 65 years of age?: Yes Is the patient on medications that gives them a predisposition to bleeding?: Yes Does the patient use alcohol?: No HAS-BLED Score: 5 CHADSVASC Age: 75 or over Gender: Female Does the patient have a history of CHF?: No Does the patient have a history of Hypertension?: Yes Does the patient have a history of Stroke/TIA/Thromboembolism?: Yes Does the patient have a history of Vascular Disease (prior AR, PAD or aortic plaque)?: Yes Does the patient have a history of Diabetes?: No CHADS VACS Score: 7 Deon Prediction Score Rsk VTE Active Cancer: No Previous VTE, excluding superficial vein thrombosis: Yes Reduced mobility: Yes Already known Thrombophilic Condition: Yes With-in last month Trauma and/or Surgery: No Elderly 70 year or older: Yes Heart and/or Respiratory Failure: No Acute Myocardial infarction and/or Ischemic Stroke: Yes Acute Infection and/or Rheumatologic Disorder: No Obesity (BMI 30 or greater): No Ongoing Hormonal Treatment: No Score: 11 Deon Score less than 4; Low Risk of VTE Deon Score 4 or greater; High Risk of VTE Coding Level of Care Code Est Patient Level 1 Diagnoses Current use of anticoagulant therapy Z79.01 Time Spent (min) 15 Assessment & Plan Assessment & Plan (1) Current use of anticoagulant therapy: Code(s): 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
== END 2023-07-18 11:56 | disposition home or self-care (01) ==
LOC: HO.ACS 11:34
PROVIDERS: PCP Internal Medicine; Visit Provider Internal Medicine
DX: Z79.01 Long term (current) use of anticoagulants (principal)

== ENCOUNTER → 2023-07-18 11:34 | Outpatient (BNVA) | payer MEDICARE, SELFPAY | PROVIDERS: PCP Internal Medicine; Visit Provider Internal Medicine | DX: I48.0 Paroxysmal atrial fibrillation (principal); Z51.81 Encounter for therapeutic drug level monitoring; Z79.01 Long term (current) use of anticoagulants | CPT/HCPCS: 85610; 99211 ==

== ENCOUNTER 2023-08-01 10:42 | Outpatient (AMB) | payer MEDICARE, SELFPAY ==
[2023-08-01 10:54] LABS: Prothrombin Time Whole Bld POC 32.8 sec (11.1-13.5); ~PT, ~INR - Anti Coag Clinic 2.7 (0.9-1.1)
--- NOTE | 2023-08-01 10:56 | MHC.OFFVISCO ---
Intake Intake Visit Reasons: Anticoagulation Allergies memantine Allergy (Severe, Verified 08/01/23 10:47) RAGE nitrofurantoin Allergy (Intermediate, Verified 08/01/23 10:47) RASH oseltamivir [From Tamiflu] Allergy (Intermediate, Verified 08/01/23 10:47) RASH oxycodone [From PERCOCET] Allergy (Unknown, Verified 08/01/23 10:47) UNKNOWN Penicillins [PENICILLINS] Allergy (Unknown, Verified 08/01/23 10:47) UNKNOWN Sulfa (Sulfonamide Antibiotics) [SULFA (SULFONAMIDE ANTIBIOTICS)] Allergy (Unknown, Verified 08/01/23 10:47) UNKNOWN Medication List - Last Reconciled 08/01/23 by Criselda Shoemaker RN acetaminophen (Tylenol Extra Strength) 1,000 mg (2 x 500 mg) PO QID PRN albuterol sulfate 90 mcg/actuation 2 puffs inhalation Q4-6H PRN alendronate 70 mg PO QWEEK ascorbic acid (vitamin C) (Vitamin C) 500 mg PO TID azithromycin 500 mg PO ONCE PRN biotin 5,000 mcg PO DAILY calcium carbonate-vitamin D3 600 mg-12.5 mcg (500 unit) (Calcium 600 with Vitamin D3) calcium 1200, vit d 25mcg cetirizine 10 mg PO DAILY PRN cholecalciferol (vitamin D3) 250 McG DAILY PO; cranberry fruit concentrate (Azo Cranberry) PO BID docusate sodium 100 mg PO BID estradiol 0.01%(0.1mg/gram) grams vaginal 2XW ezetimibe 10 mg PO DAILY fluticasone propion-salmeterol 500-50 mcg/dose (Advair Diskus) 1 inh inhalation BID magnesium oxide 500 mg PO DAILY mecobalamin (vitamin B12) mcg PO DAILY methenamine hippurate 1 g PO BID metoprolol succinate ER 75 mg PO BID mirtazapine 7.5 mg PO BEDTIME psyllium husk (Metamucil) 0.4 grams PO DAILY Saccharomyces boulardii (Daily Probiotic (S. boulardii)) PO simethicone (Gas Relief (simethicone)) PO topiramate 50 mg PO DAILY vibegron (Gemtesa) 75 mg PO DAILY warfarin See Protocol 7.5mg x2days/ 5mg x5days; Nursing Note Amb to ACS using 2 canes, accomp by spouse, feeling well Medications and supplements reviewed No changes in health, diet, medications, or supplements Denies any unusual signs and symptoms of bruising, bleeding Denies any new Chest pain, SOB, or clotting INR: 2.7 now in therapeutic range Nutritional guidance given: balance greens and reds in diet, be consistent, be aware of the red raisers over the Holiday Dose: continue usual dosing; 5mg x 3 days and 2.5mg x 4 days F/U INR: 2 weeks Patient verbalizes understanding of instructions given with accurate read back/ teach back of dosing Coding Level of Care Code Est Patient Level 1 Time Spent (min) 15
== END 2023-08-01 10:59 | disposition home or self-care (01) ==
LOC: HO.ACS 10:42
PROVIDERS: PCP Internal Medicine; Visit Provider Internal Medicine
DX: Z79.01 Long term (current) use of anticoagulants (principal)

== ENCOUNTER → 2023-08-01 10:42 | Outpatient (BNVA) | payer MEDICARE, SELFPAY | PROVIDERS: PCP Internal Medicine; Visit Provider Internal Medicine | DX: I48.0 Paroxysmal atrial fibrillation (principal); Z79.01 Long term (current) use of anticoagulants; Z51.81 Encounter for therapeutic drug level monitoring | CPT/HCPCS: 85610; 99211 ==

== ENCOUNTER 2023-08-17 11:29 | Outpatient (AMB) | payer MEDICARE, SELFPAY ==
[2023-08-17 11:36] LABS: Prothrombin Time Whole Bld POC 29.5 sec (11.1-13.5); ~PT, ~INR - Anti Coag Clinic 2.5 (0.9-1.1)
--- NOTE | 2023-08-17 11:41 | MHC.OFFVISCO ---
Intake Intake Visit Reasons: Anticoagulation Allergies memantine Allergy (Severe, Verified 08/17/23 11:32) RAGE nitrofurantoin Allergy (Intermediate, Verified 08/17/23 11:32) RASH oseltamivir [From Tamiflu] Allergy (Intermediate, Verified 08/17/23 11:32) RASH oxycodone [From PERCOCET] Allergy (Unknown, Verified 08/17/23 11:32) UNKNOWN Penicillins [PENICILLINS] Allergy (Unknown, Verified 08/17/23 11:32) UNKNOWN Sulfa (Sulfonamide Antibiotics) [SULFA (SULFONAMIDE ANTIBIOTICS)] Allergy (Unknown, Verified 08/17/23 11:32) UNKNOWN Medication List - Last Reconciled 08/17/23 by Leidy Donahue RN acetaminophen (Tylenol Extra Strength) 1,000 mg (2 x 500 mg) PO QID PRN albuterol sulfate 90 mcg/actuation 2 puffs inhalation Q4-6H PRN alendronate 70 mg PO QWEEK ascorbic acid (vitamin C) (Vitamin C) 500 mg PO TID azithromycin 500 mg PO ONCE PRN biotin 5,000 mcg PO DAILY calcium carbonate-vitamin D3 600 mg-12.5 mcg (500 unit) (Calcium 600 with Vitamin D3) calcium 1200, vit d 25mcg cetirizine 10 mg PO DAILY PRN cholecalciferol (vitamin D3) 250 McG DAILY PO; cranberry fruit concentrate (Azo Cranberry) PO BID docusate sodium 100 mg PO BID estradiol 0.01%(0.1mg/gram) grams vaginal 2XW ezetimibe 10 mg PO DAILY fluticasone propion-salmeterol 500-50 mcg/dose (Advair Diskus) 1 inh inhalation BID magnesium oxide 500 mg PO DAILY mecobalamin (vitamin B12) mcg PO DAILY methenamine hippurate 1 g PO BID metoprolol succinate ER 75 mg PO BID mirtazapine 7.5 mg PO BEDTIME psyllium husk (Metamucil) 0.4 grams PO DAILY Saccharomyces boulardii (Daily Probiotic (S. boulardii)) PO simethicone (Gas Relief (simethicone)) PO topiramate 50 mg PO DAILY vibegron (Gemtesa) 75 mg PO DAILY warfarin See Protocol 7.5mg x2days/ 5mg x5days; Nursing Note NO CP,SOB,DIET/MED CHANGES,FALLS OR SX OF BLEEDING. CONTINUE PRESENT DOSE AND FOLLOW-UP IN 3 WEEKS. GOOD UNDERSTANDING OF DOSING INSTR. Coding Level of Care Code Est Patient Level 1 Diagnoses Current use of anticoagulant therapy Z79.01 Assessment & Plan Assessment & Plan (1) Current use of anticoagulant therapy: Code(s): Z79.01 - [facility] (current) use of anticoagulants Category: Medical
== END 2023-08-17 11:42 | disposition home or self-care (01) ==
LOC: HO.ACS 11:29
PROVIDERS: PCP Internal Medicine; Visit Provider Internal Medicine
DX: Z79.01 Long term (current) use of anticoagulants (principal)

== ENCOUNTER → 2023-08-17 11:29 | Outpatient (BNVA) | payer MEDICARE, SELFPAY | PROVIDERS: PCP Internal Medicine; Visit Provider Internal Medicine | DX: I48.0 Paroxysmal atrial fibrillation (principal); Z79.01 Long term (current) use of anticoagulants; Z51.81 Encounter for therapeutic drug level monitoring | CPT/HCPCS: 85610; 99211 ==

== ENCOUNTER 2023-09-08 10:59 | Outpatient (AMB) | payer MEDICARE, SELFPAY ==
[2023-09-08 11:07] LABS: Prothrombin Time Whole Bld POC 28.3 sec (11.1-13.5); ~PT, ~INR - Anti Coag Clinic 2.4 (0.9-1.1)
--- NOTE | 2023-09-08 11:11 | MHC.OFFVISCO ---
Intake Intake Visit Reasons: Anticoagulation Allergies memantine Allergy (Severe, Verified 09/08/23 11:01) RAGE nitrofurantoin Allergy (Intermediate, Verified 09/08/23 11:01) RASH oseltamivir [From Tamiflu] Allergy (Intermediate, Verified 09/08/23 11:01) RASH oxycodone [From PERCOCET] Allergy (Unknown, Verified 09/08/23 11:01) UNKNOWN Penicillins [PENICILLINS] Allergy (Unknown, Verified 09/08/23 11:01) UNKNOWN Sulfa (Sulfonamide Antibiotics) [SULFA (SULFONAMIDE ANTIBIOTICS)] Allergy (Unknown, Verified 09/08/23 11:01) UNKNOWN Medication List - Last Reconciled 09/08/23 by Leidy Donahue RN acetaminophen (Tylenol Extra Strength) 1,000 mg (2 x 500 mg) PO QID PRN albuterol sulfate 90 mcg/actuation 2 puffs inhalation Q4-6H PRN alendronate 70 mg PO QWEEK ascorbic acid (vitamin C) (Vitamin C) 500 mg PO TID azithromycin 500 mg PO ONCE PRN biotin 5,000 mcg PO DAILY calcium carbonate-vitamin D3 600 mg-12.5 mcg (500 unit) (Calcium 600 with Vitamin D3) calcium 1200, vit d 25mcg cetirizine 10 mg PO DAILY PRN cholecalciferol (vitamin D3) 250 McG DAILY PO; cranberry fruit concentrate (Azo Cranberry) PO BID docusate sodium 100 mg PO BID estradiol 0.01%(0.1mg/gram) grams vaginal 2XW ezetimibe 10 mg PO DAILY fluticasone propion-salmeterol 500-50 mcg/dose (Advair Diskus) 1 inh inhalation BID magnesium oxide 500 mg PO DAILY mecobalamin (vitamin B12) mcg PO DAILY methenamine hippurate 1 g PO BID metoprolol succinate ER 75 mg PO BID mirtazapine 7.5 mg PO BEDTIME psyllium husk (Metamucil) 0.4 grams PO DAILY Saccharomyces boulardii (Daily Probiotic (S. boulardii)) PO simethicone (Gas Relief (simethicone)) PO topiramate 50 mg PO DAILY vibegron (Gemtesa) 75 mg PO DAILY warfarin See Protocol 7.5mg x2days/ 5mg x5days; Nursing Note NO CP,SOB,DIET/MED CHANGES,FALLS OR SX OF BLEEDING. CONTINUE PRESENT DOSE AND FOLLOW-UP IN 4 WEEKS. GOOD UNDERSTANDING OF DOSING INSTR. 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
== END 2023-09-08 11:12 | disposition home or self-care (01) ==
LOC: HO.ACS 10:59
PROVIDERS: PCP Internal Medicine; Visit Provider Internal Medicine
DX: Z79.01 Long term (current) use of anticoagulants (principal)

== ENCOUNTER → 2023-09-08 10:59 | Outpatient (BNVA) | payer MEDICARE, SELFPAY | PROVIDERS: PCP Internal Medicine; Visit Provider Internal Medicine | DX: I48.0 Paroxysmal atrial fibrillation (principal); Z79.01 Long term (current) use of anticoagulants; Z51.81 Encounter for therapeutic drug level monitoring | CPT/HCPCS: 85610; 99211 ==

== ENCOUNTER 2023-10-06 10:50 | Outpatient (AMB) | payer MEDICARE, SELFPAY ==
--- NOTE | 2023-10-06 11:01 | MHC.OFFVISCO ---
Intake Intake Visit Reasons: Anticoagulation Allergies memantine Allergy (Severe, Verified 10/06/23 10:54) RAGE nitrofurantoin Allergy (Intermediate, Verified 10/06/23 10:54) RASH oseltamivir [From Tamiflu] Allergy (Intermediate, Verified 10/06/23 10:54) RASH oxycodone [From PERCOCET] Allergy (Unknown, Verified 10/06/23 10:54) UNKNOWN Penicillins [PENICILLINS] Allergy (Unknown, Verified 10/06/23 10:54) UNKNOWN Sulfa (Sulfonamide Antibiotics) [SULFA (SULFONAMIDE ANTIBIOTICS)] Allergy (Unknown, Verified 10/06/23 10:54) UNKNOWN Medication List - Last Reconciled 10/06/23 by Petra Petersen RN acetaminophen (Tylenol Extra Strength) 1,000 mg (2 x 500 mg) PO QID PRN albuterol sulfate 90 mcg/actuation 2 puffs inhalation Q4-6H PRN alendronate 70 mg PO QWEEK ascorbic acid (vitamin C) (Vitamin C) 500 mg PO TID azithromycin 500 mg PO ONCE PRN biotin 5,000 mcg PO DAILY calcium carbonate-vitamin D3 600 mg-12.5 mcg (500 unit) (Calcium 600 with Vitamin D3) calcium 1200, vit d 25mcg cetirizine 10 mg PO DAILY PRN cholecalciferol (vitamin D3) 250 McG DAILY PO; cranberry fruit concentrate (Azo Cranberry) PO BID docusate sodium 100 mg PO BID estradiol 0.01%(0.1mg/gram) grams vaginal 2XW ezetimibe 10 mg PO DAILY fluticasone propion-salmeterol 500-50 mcg/dose (Advair Diskus) 1 inh inhalation BID losartan 25 mg PO DAILY magnesium oxide 500 mg PO DAILY mecobalamin (vitamin B12) mcg PO DAILY methenamine hippurate 1 g PO BID metoprolol succinate ER 75 mg PO BID mirtazapine 7.5 mg PO BEDTIME psyllium husk (Metamucil) 0.4 grams PO DAILY Saccharomyces boulardii (Daily Probiotic (S. boulardii)) PO simethicone (Gas Relief (simethicone)) PO topiramate 50 mg PO DAILY vibegron (Gemtesa) 75 mg PO DAILY warfarin See Protocol 7.5mg x2days/ 5mg x5days; Nursing Note INR: 2.6- in therapeutic range of 2-3 Medications and supplements reviewed- new medication losartan 25mg dly- no interaction with warfarin per micromedex No changes in health, diet, medications, or supplements, Denies any signs and symptoms of bleeding or bruising or clotting. Bleeding, bruising, clotting discussed Nutritional guidance given Dose: 5mg x 3, 2.5mg x 4 F/U INR: 4 weeks Patient and spouse verbalizes understanding of instructions given Coding Level of Care Code Est Patient Level 1 Diagnoses Current use of anticoagulant therapy Z79.01 Assessment & Plan Assessment & Plan (1) Current use of anticoagulant therapy: Code(s): Z79.01 - [facility] (current) use of anticoagulants Category: Medical
[2023-10-06 11:02] LABS: Prothrombin Time Whole Bld POC 31.2 sec (11.1-13.5); ~PT, ~INR - Anti Coag Clinic 2.6 (0.9-1.1)
== END 2023-10-06 11:21 | disposition home or self-care (01) ==
LOC: HO.ACS 10:50
PROVIDERS: PCP Internal Medicine; Visit Provider Internal Medicine
DX: Z79.01 Long term (current) use of anticoagulants (principal)

== ENCOUNTER → 2023-10-06 10:50 | Outpatient (BNVA) | payer MEDICARE, SELFPAY | PROVIDERS: PCP Internal Medicine; Visit Provider Internal Medicine | DX: I48.0 Paroxysmal atrial fibrillation (principal); Z79.01 Long term (current) use of anticoagulants; Z51.81 Encounter for therapeutic drug level monitoring | CPT/HCPCS: 85610; 99211 ==

== ENCOUNTER 2023-11-03 11:00 | Outpatient (AMB) | payer MEDICARE, SELFPAY ==
--- NOTE | 2023-11-03 11:07 | MHC.OFFVISCO ---
Intake Intake Visit Reasons: Anticoagulation Allergies memantine Allergy (Severe, Verified 11/03/23 11:02) RAGE nitrofurantoin Allergy (Intermediate, Verified 11/03/23 11:02) RASH oseltamivir [From Tamiflu] Allergy (Intermediate, Verified 11/03/23 11:02) RASH oxycodone [From PERCOCET] Allergy (Unknown, Verified 11/03/23 11:02) UNKNOWN Penicillins [PENICILLINS] Allergy (Unknown, Verified 11/03/23 11:02) UNKNOWN Sulfa (Sulfonamide Antibiotics) [SULFA (SULFONAMIDE ANTIBIOTICS)] Allergy (Unknown, Verified 11/03/23 11:02) UNKNOWN Medication List - Last Reconciled 11/03/23 by Petra Petersen RN acetaminophen (Tylenol Extra Strength) 1,000 mg (2 x 500 mg) PO QID PRN albuterol sulfate 90 mcg/actuation 2 puffs inhalation Q4-6H PRN alendronate 70 mg PO QWEEK ascorbic acid (vitamin C) (Vitamin C) 500 mg PO TID azithromycin 500 mg PO ONCE PRN biotin 5,000 mcg PO DAILY calcium carbonate-vitamin D3 600 mg-12.5 mcg (500 unit) (Calcium 600 with Vitamin D3) calcium 1200, vit d 25mcg cetirizine 10 mg PO DAILY PRN cholecalciferol (vitamin D3) 250 McG DAILY PO; cranberry fruit concentrate (Azo Cranberry) PO BID docusate sodium 100 mg PO BID estradiol 0.01%(0.1mg/gram) grams vaginal 2XW ezetimibe 10 mg PO DAILY fluticasone propion-salmeterol 500-50 mcg/dose (Advair Diskus) 1 inh inhalation BID losartan 25 mg PO DAILY magnesium oxide 500 mg PO DAILY mecobalamin (vitamin B12) mcg PO DAILY methenamine hippurate 1 g PO BID metoprolol succinate ER 75 mg PO BID mirtazapine 7.5 mg PO BEDTIME psyllium husk (Metamucil) 0.4 grams PO DAILY Saccharomyces boulardii (Daily Probiotic (S. boulardii)) PO simethicone (Gas Relief (simethicone)) PO topiramate 50 mg PO DAILY vibegron (Gemtesa) 75 mg PO DAILY warfarin See Protocol 7.5mg x2days/ 5mg x5days; Nursing Note INR 3.6-? out of therapeutic range 2-3 Medications and supplements reviewed Patient status: c.o ingrown toenail- states going to urgent care today, will call acs with any new medications, aware risk of bleeding with elev inr Medications or supplements: no changes, using clotrimazole and bethamethasone dipropionate Diet: same Denies any signs and symptoms of bleeding or clotting or unusual bruising Bleeding, bruising, clotting discussed Nutritional guidance given: eat greens to lower Dose: hold dose today then cont 5mg x 3, 2.5mg x 4 F/U INR Date : 2 weeks?? Patient verbalizing understanding of instructions given. Coding Level of Care Code Est Patient Level 1 Diagnoses Current use of anticoagulant therapy Z79.01 Assessment & Plan Assessment & Plan (1) Current use of anticoagulant therapy: Code(s): Z79.01 - [facility] (current) use of anticoagulants Category: Medical Medications: New clotrimazole-betamethasone 1-0.05 % 1 appl topical BID
[2023-11-03 11:08] LABS: Prothrombin Time Whole Bld POC 42.8 sec (11.1-13.5); ~PT, ~INR - Anti Coag Clinic 3.6 (0.9-1.1)
== END 2023-11-03 11:16 | disposition home or self-care (01) ==
LOC: HO.ACS 11:00
PROVIDERS: PCP Internal Medicine; Visit Provider Internal Medicine
DX: Z79.01 Long term (current) use of anticoagulants (principal)

== ENCOUNTER → 2023-11-03 11:00 | Outpatient (BNVA) | payer MEDICARE, SELFPAY | PROVIDERS: PCP Internal Medicine; Visit Provider Internal Medicine | DX: I48.0 Paroxysmal atrial fibrillation (principal); Z79.01 Long term (current) use of anticoagulants; Z51.81 Encounter for therapeutic drug level monitoring | CPT/HCPCS: 85610; 99211 ==

== ENCOUNTER 2023-11-18 14:08 | Outpatient (AMB) | payer MEDICARE, SELFPAY ==
[2023-11-18 14:19] LABS: Prothrombin Time Whole Bld POC 39.1 sec (11.1-13.5); ~PT, ~INR - Anti Coag Clinic 3.3 (0.9-1.1)
--- NOTE | 2023-11-18 14:33 | MHC.OFFVISCO ---
Intake Intake Visit Reasons: Anticoagulation Allergies memantine Allergy (Severe, Verified 11/18/23 14:08) RAGE nitrofurantoin Allergy (Intermediate, Verified 11/18/23 14:08) RASH oseltamivir [From Tamiflu] Allergy (Intermediate, Verified 11/18/23 14:08) RASH oxycodone [From PERCOCET] Allergy (Unknown, Verified 11/18/23 14:08) UNKNOWN Penicillins [PENICILLINS] Allergy (Unknown, Verified 11/18/23 14:08) UNKNOWN Sulfa (Sulfonamide Antibiotics) [SULFA (SULFONAMIDE ANTIBIOTICS)] Allergy (Unknown, Verified 11/18/23 14:08) UNKNOWN Medication List - Last Reconciled 11/18/23 by Aby Schuler RN acetaminophen (Tylenol Extra Strength) 1,000 mg (2 x 500 mg) PO QID PRN albuterol sulfate 90 mcg/actuation 2 puffs inhalation Q4-6H PRN alendronate 70 mg PO QWEEK ascorbic acid (vitamin C) (Vitamin C) 500 mg PO TID azithromycin 500 mg PO ONCE PRN biotin 5,000 mcg PO DAILY calcium carbonate-vitamin D3 600 mg-12.5 mcg (500 unit) (Calcium 600 with Vitamin D3) calcium 1200, vit d 25mcg cetirizine 10 mg PO DAILY PRN cholecalciferol (vitamin D3) 250 McG DAILY PO; clotrimazole-betamethasone 1-0.05 % 1 appl topical BID cranberry fruit concentrate (Azo Cranberry) PO BID docusate sodium 100 mg PO BID doxycycline monohydrate 100 mg PO BID estradiol 0.01%(0.1mg/gram) grams vaginal 2XW ezetimibe 10 mg PO DAILY fluticasone propion-salmeterol 500-50 mcg/dose (Advair Diskus) 1 inh inhalation BID inhalational spacing device ([facility] R[facility]e [facility] spacer) As directed losartan 25 mg PO DAILY magnesium oxide 500 mg PO DAILY mecobalamin (vitamin B12) mcg PO DAILY methenamine hippurate 1 g PO BID metoprolol succinate ER 75 mg PO BID mirtazapine 7.5 mg PO BEDTIME prednisone 40 mg PO DAILY psyllium husk (Metamucil) 0.4 grams PO DAILY Saccharomyces boulardii (Daily Probiotic (S. boulardii)) PO simethicone (Gas Relief (simethicone)) PO topiramate 50 mg PO DAILY vibegron (Gemtesa) 75 mg PO DAILY warfarin See Protocol 7.5mg x2days/ 5mg x5days; Nursing Note pt being treated for pneumpnia, states RSV and Flu and covid r/o INR 3.3 out of therapeutic range Medications and supplements reviewed Patient status: PT went to [facility] 2 days ago for URI and cough, RSV FLU Medications or supplements: pt on doxycline 100mg po bid, prednisone 40mg po daily x 5 days Diet: ok Denies any signs and symptoms of bleeding or clotting or unusual bruising Bleeding, bruising, clotting discussed Nutritional guidance given: review food list weekly , eat greens weekl while on prednsone and antbx Dose: decrease weekly dose to 5mg x 2 days/ 2.5mg x5 days F/U INR Date : 1 week?? Patient verbalizing understanding of instructions given. Coding Level of Care Code Est Patient Level 1 Diagnoses Current use of anticoagulant therapy Z79.01 Assessment & Plan Assessment & Plan (1) Current use of anticoagulant therapy: Code(s): Z79.01 - custodial (current) use of anticoagulants Category: Medical
== END 2023-11-18 14:42 | disposition home or self-care (01) ==
LOC: HO.ACS 14:08
PROVIDERS: PCP Internal Medicine; Visit Provider Internal Medicine
DX: Z79.01 Long term (current) use of anticoagulants (principal)

== ENCOUNTER → 2023-11-18 14:08 | Outpatient (BNVA) | payer MEDICARE, SELFPAY | PROVIDERS: PCP Internal Medicine; Visit Provider Internal Medicine | DX: I48.0 Paroxysmal atrial fibrillation (principal); Z79.01 Long term (current) use of anticoagulants; Z51.81 Encounter for therapeutic drug level monitoring | CPT/HCPCS: 85610; 99211 ==

== ENCOUNTER 2023-11-25 13:26 | Outpatient (AMB) | payer MEDICARE, SELFPAY ==
[2023-11-25 13:46] LABS: Prothrombin Time Whole Bld POC 40.9 sec (11.1-13.5); ~PT, ~INR - Anti Coag Clinic 3.4 (0.9-1.1)
--- NOTE | 2023-11-25 13:55 | MHC.OFFVISCO ---
Intake Intake Visit Reasons: Anticoagulation Allergies memantine Allergy (Severe, Verified 11/25/23 13:38) RAGE nitrofurantoin Allergy (Intermediate, Verified 11/25/23 13:38) RASH oseltamivir [From Tamiflu] Allergy (Intermediate, Verified 11/25/23 13:38) RASH oxycodone [From PERCOCET] Allergy (Unknown, Verified 11/25/23 13:38) UNKNOWN Penicillins [PENICILLINS] Allergy (Unknown, Verified 11/25/23 13:38) UNKNOWN Sulfa (Sulfonamide Antibiotics) [SULFA (SULFONAMIDE ANTIBIOTICS)] Allergy (Unknown, Verified 11/25/23 13:38) UNKNOWN Medication List - Last Reconciled 11/25/23 by Criselda Marshall RN acetaminophen (Tylenol Extra Strength) 1,000 mg (2 x 500 mg) PO QID PRN albuterol sulfate 90 mcg/actuation 2 puffs inhalation Q4-6H PRN alendronate 70 mg PO QWEEK ascorbic acid (vitamin C) (Vitamin C) 500 mg PO TID azithromycin 500 mg PO ONCE PRN biotin 5,000 mcg PO DAILY calcium carbonate-vitamin D3 600 mg-12.5 mcg (500 unit) (Calcium 600 with Vitamin D3) calcium 1200, vit d 25mcg cetirizine 10 mg PO DAILY PRN cholecalciferol (vitamin D3) 250 McG DAILY PO; clotrimazole-betamethasone 1-0.05 % 1 appl topical BID cranberry fruit concentrate (Azo Cranberry) PO BID docusate sodium 100 mg PO BID doxycycline monohydrate 100 mg PO BID estradiol 0.01%(0.1mg/gram) grams vaginal 2XW ezetimibe 10 mg PO DAILY fluticasone propion-salmeterol 500-50 mcg/dose (Advair Diskus) 1 inh inhalation BID inhalational spacing device ([facility] spacer) As directed losartan 25 mg PO DAILY magnesium oxide 500 mg PO DAILY mecobalamin (vitamin B12) mcg PO DAILY methenamine hippurate 1 g PO BID metoprolol succinate ER 75 mg PO BID mirtazapine 7.5 mg PO BEDTIME prednisone 40 mg PO DAILY psyllium husk (Metamucil) 0.4 grams PO DAILY Saccharomyces boulardii (Daily Probiotic (S. boulardii)) PO simethicone (Gas Relief (simethicone)) PO topiramate 50 mg PO DAILY vibegron (Gemtesa) 75 mg PO DAILY warfarin See Protocol 7.5mg x2days/ 5mg x5days; Nursing Note INR: 3.4 out of therapeutic range of 2-3 Medications and supplements reviewed, no changes No changes in health, diet, medications, or supplements, Denies any signs and symptoms of bleeding or bruising or clotting. Bleeding, bruising, clotting discussed Nutritional guidance given to have a serving of greens today Dose: 5mg X2 days and 2.5mg X5 days F/U INR: 2 weeks Patient verbalizes understanding of instructions given Coding Level of Care Code Est Patient Level 1 Diagnoses Current use of anticoagulant therapy Z79.01 Results AMB INR Fingerstick AMB INR Fingerstick 3.4 Last Edit by Criselda Marshall, RN on 11/25/23 13:45 interface delay Assessment & Plan Assessment & Plan (1) Current use of anticoagulant therapy: Code(s): Z79.01 - residential (current) use of anticoagulants Category: Medical
== END 2023-11-25 13:58 | disposition home or self-care (01) ==
LOC: HO.ACS 13:26
PROVIDERS: PCP Internal Medicine; Visit Provider Internal Medicine
DX: Z79.01 Long term (current) use of anticoagulants (principal)

== ENCOUNTER → 2023-11-25 13:26 | Outpatient (BNVA) | payer MEDICARE, SELFPAY | PROVIDERS: PCP Internal Medicine; Visit Provider Internal Medicine | DX: I48.0 Paroxysmal atrial fibrillation (principal); Z79.01 Long term (current) use of anticoagulants; Z51.81 Encounter for therapeutic drug level monitoring | CPT/HCPCS: 85610; 99211 ==

== ENCOUNTER 2023-12-09 11:28 | Outpatient (AMB) | payer MEDICARE, SELFPAY ==
[2023-12-09 11:40] LABS: Prothrombin Time Whole Bld POC 35.6 sec (11.1-13.5)
--- NOTE | 2023-12-09 11:57 | MHC.OFFVISCO ---
Intake Intake Visit Reasons: Anticoagulation Allergies memantine Allergy (Severe, Verified 12/09/23 11:35) RAGE nitrofurantoin Allergy (Intermediate, Verified 12/09/23 11:35) RASH oseltamivir [From Tamiflu] Allergy (Intermediate, Verified 12/09/23 11:35) RASH oxycodone [From PERCOCET] Allergy (Unknown, Verified 12/09/23 11:35) UNKNOWN Penicillins [PENICILLINS] Allergy (Unknown, Verified 12/09/23 11:35) UNKNOWN Sulfa (Sulfonamide Antibiotics) [SULFA (SULFONAMIDE ANTIBIOTICS)] Allergy (Unknown, Verified 12/09/23 11:35) UNKNOWN Medication List - Last Reconciled 12/09/23 by Criselda Marshall RN acetaminophen (Tylenol Extra Strength) 1,000 mg (2 x 500 mg) PO QID PRN albuterol sulfate 90 mcg/actuation 2 puffs inhalation Q4-6H PRN alendronate 70 mg PO QWEEK ascorbic acid (vitamin C) (Vitamin C) 500 mg PO TID azithromycin 500 mg PO ONCE PRN biotin 5,000 mcg PO DAILY calcium carbonate-vitamin D3 600 mg-12.5 mcg (500 unit) (Calcium 600 with Vitamin D3) calcium 1200, vit d 25mcg cetirizine 10 mg PO DAILY PRN cholecalciferol (vitamin D3) 250 McG DAILY PO; clotrimazole-betamethasone 1-0.05 % 1 appl topical BID cranberry fruit concentrate (Azo Cranberry) PO BID docusate sodium 100 mg PO BID doxycycline monohydrate 100 mg PO BID estradiol 0.01%(0.1mg/gram) grams vaginal 2XW ezetimibe 10 mg PO DAILY fluticasone propion-salmeterol 500-50 mcg/dose (Advair Diskus) 1 inh inhalation BID inhalational spacing device ([facility] spacer) As directed losartan 25 mg PO DAILY magnesium oxide 500 mg PO DAILY mecobalamin (vitamin B12) mcg PO DAILY methenamine hippurate 1 g PO BID metoprolol succinate ER 75 mg PO BID mirtazapine 7.5 mg PO BEDTIME prednisone 40 mg PO DAILY psyllium husk (Metamucil) 0.4 grams PO DAILY Saccharomyces boulardii (Daily Probiotic (S. boulardii)) PO simethicone (Gas Relief (simethicone)) PO topiramate 50 mg PO DAILY vibegron (Gemtesa) 75 mg PO DAILY warfarin See Protocol 7.5mg x2days/ 5mg x5days; Nursing Note Pt to [facility] accompanied by . INR: 3.0 in therapeutic range of 2-3 Medications and supplements reviewed: no change No changes in health, diet, medications, or supplements, Denies any signs and symptoms of bleeding or bruising or clotting. Bleeding, bruising, clotting discussed Pt to have a tooth extracted ? on 12/18. Pt will check date and call dentist and PCP if she needs to hold warfarin Nutritional guidance given to have greens today then to balance reds and greens. 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
== END 2023-12-09 12:08 | disposition home or self-care (01) ==
LOC: HO.ACS 11:28
PROVIDERS: PCP Internal Medicine; Visit Provider Internal Medicine
DX: Z79.01 Long term (current) use of anticoagulants (principal)

== ENCOUNTER → 2023-12-09 11:28 | Outpatient (BNVA) | payer MEDICARE, SELFPAY | PROVIDERS: PCP Internal Medicine; Visit Provider Internal Medicine | DX: I48.0 Paroxysmal atrial fibrillation (principal); Z79.01 Long term (current) use of anticoagulants; Z51.81 Encounter for therapeutic drug level monitoring | CPT/HCPCS: 85610; 99211 ==

== ENCOUNTER 2023-12-16 11:06 | Outpatient (AMB) | payer MEDICARE, SELFPAY ==
[2023-12-16 11:29] LABS: Prothrombin Time Whole Bld POC 23.1 sec (11.1-13.5); ~PT, ~INR - Anti Coag Clinic 1.9 (0.9-1.1)
--- NOTE | 2023-12-16 11:49 | MHC.OFFVISCO ---
Intake Intake Visit Reasons: Anticoagulation Allergies memantine Allergy (Severe, Verified 12/16/23 11:15) RAGE nitrofurantoin Allergy (Intermediate, Verified 12/16/23 11:15) RASH oseltamivir [From Tamiflu] Allergy (Intermediate, Verified 12/16/23 11:15) RASH oxycodone [From PERCOCET] Allergy (Unknown, Verified 12/16/23 11:15) UNKNOWN Penicillins [PENICILLINS] Allergy (Unknown, Verified 12/16/23 11:15) UNKNOWN Sulfa (Sulfonamide Antibiotics) [SULFA (SULFONAMIDE ANTIBIOTICS)] Allergy (Unknown, Verified 12/16/23 11:15) UNKNOWN Nursing Note INR 1.9-?? 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 Medications or supplements: indocin 25mg tid for 3 days, aware increased risk of bleeding with this, antibiotic levaquin 500mg dly for 6 weeks, this will raise inr per micromedex/delayed/major. pt started antibiotic on 12/13/23, metoprolol succ 75mg daily. Diet: same Denies any signs and symptoms of bleeding or clotting or unusual bruising Bleeding, bruising, clotting discussed Nutritional guidance given: no greens today Dose: reg dosing 5mg x 2, 2.5mg x 5 F/U INR Date : tue12/21/23?? Patient verbalizing understanding of instructions given. pt states having molar extracted on 01/05/24- pt is seeing pcp on 12/23/23- instructed to speak to pcp on 12/23/23 regarding holding warfarin prior to extraction pt spouse req call to [facility] -dr martha candelario with inr per her req. 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
== END 2023-12-16 12:46 | disposition home or self-care (01) ==
LOC: HO.ACS 11:06
PROVIDERS: PCP Internal Medicine; Visit Provider Internal Medicine
DX: Z79.01 Long term (current) use of anticoagulants (principal)

== ENCOUNTER → 2023-12-16 11:06 | Outpatient (BNVA) | payer MEDICARE, SELFPAY | PROVIDERS: PCP Internal Medicine; Visit Provider Internal Medicine | DX: I48.0 Paroxysmal atrial fibrillation (principal); Z79.01 Long term (current) use of anticoagulants; Z51.81 Encounter for therapeutic drug level monitoring | CPT/HCPCS: 85610; 99212 ==

== ENCOUNTER 2023-12-21 11:10 | Outpatient (AMB) | payer MEDICARE, SELFPAY ==
--- NOTE | 2023-12-21 11:28 | MHC.OFFVISCO ---
Intake Intake Visit Reasons: Anticoagulation Allergies memantine Allergy (Severe, Verified 12/21/23 11:23) RAGE nitrofurantoin Allergy (Intermediate, Verified 12/21/23 11:23) RASH oseltamivir [From Tamiflu] Allergy (Intermediate, Verified 12/21/23 11:23) RASH oxycodone [From PERCOCET] Allergy (Unknown, Verified 12/21/23 11:23) UNKNOWN Penicillins [PENICILLINS] Allergy (Unknown, Verified 12/21/23 11:23) UNKNOWN Sulfa (Sulfonamide Antibiotics) [SULFA (SULFONAMIDE ANTIBIOTICS)] Allergy (Unknown, Verified 12/21/23 11:23) UNKNOWN Nursing Note INR: 2.0- in therapeutic range of 2-3 Medications and supplements reviewed No changes in health, diet, medications, or supplements, Denies any signs and symptoms of bleeding or bruising or clotting. Bleeding, bruising, clotting discussed Nutritional guidance given Dose: 5mg x 2, 2.5mg x 5 F/U INR: 1 week Patient verbalizes understanding of instructions given pt cont on levoquin 500mg daily x 6 weeks for osteo of toe indomethacin d/c - pt reports bloody noses- last one on tuesday12/17/23. pt seeing pcp today and will report pt reports toe pink with edema, seeing pcp today, will call with any medication changes pt amb with cane, reports issues with eyes and will report to pcp today pt to have molar extraction on 01/05/24, will ? holding warfarin pt present for acs visit. all questions and concerns written for pt to discuss with pcp today Coding Level of Care Code Est Patient Level 1 Diagnoses Current use of anticoagulant therapy Z79.01 Assessment & Plan Assessment & Plan (1) Current use of anticoagulant therapy: Code(s): Z79.01 - residential (current) use of anticoagulants Category: Medical
[2023-12-21 11:30] LABS: Prothrombin Time Whole Bld POC 24.5 sec (11.1-13.5)
== END 2023-12-21 11:46 | disposition home or self-care (01) ==
LOC: HO.ACS 11:10
PROVIDERS: PCP Internal Medicine; Visit Provider Internal Medicine
DX: Z79.01 Long term (current) use of anticoagulants (principal)

== ENCOUNTER → 2023-12-21 11:10 | Outpatient (BNVA) | payer MEDICARE, SELFPAY | PROVIDERS: PCP Internal Medicine; Visit Provider Internal Medicine | DX: I48.0 Paroxysmal atrial fibrillation (principal); Z79.01 Long term (current) use of anticoagulants; Z51.81 Encounter for therapeutic drug level monitoring | CPT/HCPCS: 85610; 99211 ==

== ENCOUNTER 2023-12-29 11:04 | Outpatient (AMB) | payer MEDICARE, SELFPAY ==
[2023-12-29 11:21] LABS: Prothrombin Time Whole Bld POC 25.7 sec (11.1-13.5); ~PT, ~INR - Anti Coag Clinic 2.1 (0.9-1.1)
--- NOTE | 2023-12-29 11:42 | MHC.OFFVISCO ---
Intake Intake Visit Reasons: Anticoagulation Allergies memantine Allergy (Severe, Verified 12/29/23 11:17) RAGE nitrofurantoin Allergy (Intermediate, Verified 12/29/23 11:17) RASH oseltamivir [From Tamiflu] Allergy (Intermediate, Verified 12/29/23 11:17) RASH oxycodone [From PERCOCET] Allergy (Unknown, Verified 12/29/23 11:17) UNKNOWN Penicillins [PENICILLINS] Allergy (Unknown, Verified 12/29/23 11:17) UNKNOWN Sulfa (Sulfonamide Antibiotics) [SULFA (SULFONAMIDE ANTIBIOTICS)] Allergy (Unknown, Verified 12/29/23 11:17) UNKNOWN Medication List - Last Reconciled 12/29/23 by Leidy Donahue RN acetaminophen (Tylenol Extra Strength) 1,000 mg (2 x 500 mg) PO QID PRN albuterol sulfate 90 mcg/actuation 2 puffs inhalation Q4-6H PRN alendronate 70 mg PO QWEEK ascorbic acid (vitamin C) (Vitamin C) 500 mg PO TID azithromycin 500 mg PO ONCE PRN biotin 5,000 mcg PO DAILY calcium carbonate-vitamin D3 600 mg-12.5 mcg (500 unit) (Calcium 600 with Vitamin D3) calcium 1200, vit d 25mcg cetirizine 10 mg PO DAILY PRN cholecalciferol (vitamin D3) 250 McG DAILY PO; clotrimazole-betamethasone 1-0.05 % 1 appl topical BID cranberry fruit concentrate (Azo Cranberry) PO BID docusate sodium 100 mg PO BID estradiol 0.01%(0.1mg/gram) grams vaginal 2XW ezetimibe 10 mg PO DAILY fluticasone propion-salmeterol 500-50 mcg/dose (Advair Diskus) 1 inh inhalation BID indomethacin 25 mg PO TID inhalational spacing device ([facility] Rylee [facility] spacer) As directed levofloxacin 500 mg PO DAILY losartan 25 mg PO DAILY magnesium oxide 500 mg PO DAILY mecobalamin (vitamin B12) mcg PO DAILY methenamine hippurate 1 g PO BID metoprolol succinate ER 75 mg PO DAILY mirtazapine 7.5 mg PO BEDTIME psyllium husk (Metamucil) 0.4 grams PO DAILY Saccharomyces boulardii (Daily Probiotic (S. boulardii)) PO simethicone (Gas Relief (simethicone)) PO topiramate 50 mg PO DAILY vibegron (Gemtesa) 75 mg PO DAILY warfarin See Protocol 7.5mg x2days/ 5mg x5days; Nursing Note PT.STARTED DURICEF YESTERDAY IN PLACE OF [place] PER ORDER SCHEDULE CLERK. PT.HAS LESS DISCOMF.FROM FOOT. SHE HAD A SLIGHT NOSEBLEED THIS AM WHICH SUBSIDED EASILY AND QUICKLY. PT.WILL CONTINUE PRESENTWARFARIN DOSE AND RECHECK IN 1 WEEK. TO CALL [facility] IF ANY QUESTIONS/CONCERNS OR BLEEDING OCCUR IN MEANTIME. MULTIPLE MEDS ON HOLD PER PCP AND REVIEWED WITH AND PT. SPOUSE STATES THAT PT.HAS APPT.IN ABOUT 1 MONTH WITH PCP TO FOLLOW-UP Coding Level of Care Code Est Patient Level 1 Diagnoses Current use of anticoagulant therapy Z79.01 Assessment & Plan Assessment & Plan (1) Current use of anticoagulant therapy: Code(s): Z79.01 - intermediate (current) use of anticoagulants Category: Medical Medications: On Hold ezetimibe Hold Comment: Doctor's Order 10 mg PO DAILY topiramate Hold Comment: Doctor's Order 50 mg PO DAILY cetirizine Hold Comment: Doctor's Order 10 mg PO DAILY PRN allergy symptoms clotrimazole-betamethasone 1-0.05 % Hold Comment: Doctor's Order 1 appl topical BID indomethacin Hold Comment: Doctor's Order 25 mg PO TID
== END 2023-12-29 11:49 | disposition home or self-care (01) ==
LOC: HO.ACS 11:04
PROVIDERS: PCP Internal Medicine; Visit Provider Internal Medicine
DX: Z79.01 Long term (current) use of anticoagulants (principal)

== ENCOUNTER → 2023-12-29 11:04 | Outpatient (BNVA) | payer MEDICARE, SELFPAY | PROVIDERS: PCP Internal Medicine; Visit Provider Internal Medicine | DX: I48.0 Paroxysmal atrial fibrillation (principal); Z79.01 Long term (current) use of anticoagulants; Z51.81 Encounter for therapeutic drug level monitoring | CPT/HCPCS: 85610; 99211 ==

== ENCOUNTER 2024-01-05 13:54 | Outpatient (AMB) | payer MEDICARE, SELFPAY ==
[2024-01-05 14:13] LABS: Prothrombin Time Whole Bld POC 23.8 sec (11.1-13.5)
--- NOTE | 2024-01-05 14:20 | MHC.OFFVISCO ---
Intake Intake Visit Reasons: Anticoagulation Allergies memantine Allergy (Severe, Verified 01/05/24 14:04) RAGE nitrofurantoin Allergy (Intermediate, Verified 01/05/24 14:04) RASH oseltamivir [From Tamiflu] Allergy (Intermediate, Verified 01/05/24 14:04) RASH oxycodone [From PERCOCET] Allergy (Unknown, Verified 01/05/24 14:04) UNKNOWN Penicillins [PENICILLINS] Allergy (Unknown, Verified 01/05/24 14:04) UNKNOWN Sulfa (Sulfonamide Antibiotics) [SULFA (SULFONAMIDE ANTIBIOTICS)] Allergy (Unknown, Verified 01/05/24 14:04) UNKNOWN Medication List - Last Reconciled 01/05/24 by Aby Schuler RN acetaminophen (Tylenol Extra Strength) 1,000 mg (2 x 500 mg) PO QID PRN albuterol sulfate 90 mcg/actuation 2 puffs inhalation Q4-6H PRN alendronate 70 mg PO QWEEK ascorbic acid (vitamin C) (Vitamin C) 500 mg PO TID azithromycin 500 mg PO ONCE PRN biotin 5,000 mcg PO DAILY calcium carbonate-vitamin D3 600 mg-12.5 mcg (500 unit) (Calcium 600 with Vitamin D3) calcium 1200, vit d 25mcg cefadroxil 500 mg PO BID cetirizine 10 mg PO DAILY PRN cholecalciferol (vitamin D3) 250 McG DAILY PO; clotrimazole-betamethasone 1-0.05 % 1 appl topical BID cranberry fruit concentrate (Azo Cranberry) PO BID docusate sodium 100 mg PO BID estradiol 0.01%(0.1mg/gram) grams vaginal 2XW ezetimibe 10 mg PO DAILY fluticasone propion-salmeterol 500-50 mcg/dose (Advair Diskus) 1 inh inhalation BID inhalational spacing device ([facility]ylee [facility] spacer) As directed losartan 25 mg PO DAILY magnesium oxide 500 mg PO DAILY mecobalamin (vitamin B12) mcg PO DAILY methenamine hippurate 1 g PO BID metoprolol succinate ER 75 mg PO DAILY mirtazapine 7.5 mg PO BEDTIME psyllium husk (Metamucil) 0.4 grams PO DAILY Saccharomyces boulardii (Daily Probiotic (S. boulardii)) PO simethicone (Gas Relief (simethicone)) PO topiramate 50 mg PO DAILY vibegron (Gemtesa) 75 mg PO DAILY warfarin See Protocol 7.5mg x2days/ 5mg x5days; Nursing Note INR: 2.0 in therapeutic range Medications and supplements reviewed WILL COMPLETE ANTBX OVER THE WEEKEND- HER TOE IS GETTING BETTER-LESS PAINFUL, SHE STATED THE MINING SUPPORT WORKER HAD TO BRO AND DRAIN THE TOE, Denies any signs and symptoms of bleeding or bruising or clotting. Bleeding, bruising, clotting discussed Nutritional guidance given - AVOID GREENS TODAY , then resume usual diet Dose: keep same 5mg mon and sat/ 2.5mg x 5 days F/U INR: 2 weeks Patient verbalizes understanding of instructions given Coding Level of Care Code Est Patient Level 1 Diagnoses Current use of anticoagulant therapy Z79.01 Results AMB INR Fingerstick AMB INR Fingerstick 2.0 Last Edit by Aby Schuler RN on 01/05/24 14:15 MANUAL ENTRY Assessment & Plan Assessment & Plan (1) Current use of anticoagulant therapy: Code(s): Z79.01 - shelter (current) use of anticoagulants Category: Medical Medications: New hlydrhlv-rbp-bmpz-FA-vit K-lut (Multivitamin Women 50 Plus) PO
== END 2024-01-05 14:23 | disposition home or self-care (01) ==
LOC: HO.ACS 13:54
PROVIDERS: PCP Internal Medicine; Visit Provider Internal Medicine
DX: Z79.01 Long term (current) use of anticoagulants (principal)

== ENCOUNTER → 2024-01-05 13:54 | Outpatient (BNVA) | payer MEDICARE, SELFPAY | PROVIDERS: PCP Internal Medicine; Visit Provider Internal Medicine | DX: I48.0 Paroxysmal atrial fibrillation (principal); Z51.81 Encounter for therapeutic drug level monitoring; Z79.01 Long term (current) use of anticoagulants | CPT/HCPCS: 85610; 99211 ==

== ENCOUNTER 2024-01-12 13:00 | Outpatient (AMB) | payer MEDICARE, SELFPAY ==
[2024-01-12 13:17] LABS: Prothrombin Time Whole Bld POC 21.4 sec (11.1-13.5); ~PT, ~INR - Anti Coag Clinic 1.8 (0.9-1.1)
--- NOTE | 2024-01-12 13:19 | MHC.OFFVISCO ---
Intake Intake Visit Reasons: Anticoagulation Allergies memantine Allergy (Severe, Verified 01/12/24 13:03) RAGE nitrofurantoin Allergy (Intermediate, Verified 01/12/24 13:03) RASH oseltamivir [From Tamiflu] Allergy (Intermediate, Verified 01/12/24 13:03) RASH oxycodone [From PERCOCET] Allergy (Unknown, Verified 01/12/24 13:03) UNKNOWN Penicillins [PENICILLINS] Allergy (Unknown, Verified 01/12/24 13:03) UNKNOWN Sulfa (Sulfonamide Antibiotics) [SULFA (SULFONAMIDE ANTIBIOTICS)] Allergy (Unknown, Verified 01/12/24 13:03) UNKNOWN Medication List - Last Reconciled 01/12/24 by Criselda Marshall RN acetaminophen (Tylenol Extra Strength) 1,000 mg (2 x 500 mg) PO QID PRN albuterol sulfate 90 mcg/actuation 2 puffs inhalation Q4-6H PRN alendronate 70 mg PO QWEEK ascorbic acid (vitamin C) (Vitamin C) 500 mg PO TID azithromycin 500 mg PO ONCE PRN biotin 5,000 mcg PO DAILY calcium carbonate-vitamin D3 600 mg-12.5 mcg (500 unit) (Calcium 600 with Vitamin D3) calcium 1200, vit d 25mcg cefadroxil 500 mg PO BID cetirizine 10 mg PO DAILY PRN cholecalciferol (vitamin D3) 250 McG DAILY PO; clotrimazole-betamethasone 1-0.05 % 1 appl topical BID cranberry fruit concentrate (Azo Cranberry) PO BID docusate sodium 100 mg PO BID estradiol 0.01%(0.1mg/gram) grams vaginal 2XW ezetimibe 10 mg PO DAILY fluticasone propion-salmeterol 500-50 mcg/dose (Advair Diskus) 1 inh inhalation BID inhalational spacing device ([facility] spacer) As directed losartan 25 mg PO DAILY magnesium oxide 500 mg PO DAILY mecobalamin (vitamin B12) mcg PO DAILY methenamine hippurate 1 g PO BID metoprolol succinate ER 75 mg PO DAILY mirtazapine 7.5 mg PO BEDTIME sogjorkq-vyb-fbqv-FA-vit K-lut (Multivitamin Women 50 Plus) PO psyllium husk (Metamucil) 0.4 grams PO DAILY Saccharomyces boulardii (Daily Probiotic (S. boulardii)) PO simethicone (Gas Relief (simethicone)) PO topiramate 50 mg PO DAILY vibegron (Gemtesa) 75 mg PO DAILY warfarin See Protocol 7.5mg x2days/ 5mg x5days; Nursing Note Pt to ACS with use of cane accompanied by INR 1.8?out of therapeutic range of 2-3 Medications and supplements reviewed: no changes Patient status: c/o back pain but this she states is not new. Medications or supplements: no changes Diet: usual diet Denies any signs and symptoms of bleeding or clotting or unusual bruising Bleeding, bruising, clotting discussed Nutritional guidance given: no greens today. Food list reviewed and pt to have a serving of food that raises the INR today Dose: increase todays dose to 5mg (2.5mg) then resume usual dose of 2.5mg X 5 days and 5mg X2 days F/U INR Date : 1 week?? Patient verbalizing understanding of instructions given. 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
== END 2024-01-12 13:24 | disposition home or self-care (01) ==
LOC: HO.ACS 13:00
PROVIDERS: PCP Internal Medicine; Visit Provider Internal Medicine
DX: Z79.01 Long term (current) use of anticoagulants (principal)

== ENCOUNTER → 2024-01-12 13:00 | Outpatient (BNVA) | payer MEDICARE, SELFPAY | PROVIDERS: PCP Internal Medicine; Visit Provider Internal Medicine | DX: I48.0 Paroxysmal atrial fibrillation (principal); Z51.81 Encounter for therapeutic drug level monitoring; Z79.01 Long term (current) use of anticoagulants | CPT/HCPCS: 85610; 99211 ==

== ENCOUNTER 2024-01-19 11:00 | Outpatient (AMB) | payer MEDICARE, SELFPAY ==
[2024-01-19 11:07] LABS: Prothrombin Time Whole Bld POC 20.9 sec (11.1-13.5); ~PT, ~INR - Anti Coag Clinic 1.7 (0.9-1.1)
--- NOTE | 2024-01-19 11:23 | MHC.OFFVISCO ---
Intake Intake Visit Reasons: Anticoagulation Allergies memantine Allergy (Severe, Verified 01/19/24 11:01) RAGE nitrofurantoin Allergy (Intermediate, Verified 01/19/24 11:01) RASH oseltamivir [From Tamiflu] Allergy (Intermediate, Verified 01/19/24 11:01) RASH oxycodone [From PERCOCET] Allergy (Unknown, Verified 01/19/24 11:01) UNKNOWN Penicillins [PENICILLINS] Allergy (Unknown, Verified 01/19/24 11:01) UNKNOWN Sulfa (Sulfonamide Antibiotics) [SULFA (SULFONAMIDE ANTIBIOTICS)] Allergy (Unknown, Verified 01/19/24 11:01) UNKNOWN Medication List - Last Reconciled 01/19/24 by Criselda Marshall RN acetaminophen (Tylenol Extra Strength) 1,000 mg (2 x 500 mg) PO QID PRN albuterol sulfate 90 mcg/actuation 2 puffs inhalation Q4-6H PRN alendronate 70 mg PO QWEEK ascorbic acid (vitamin C) (Vitamin C) 500 mg PO TID azithromycin 500 mg PO ONCE PRN biotin 5,000 mcg PO DAILY calcium carbonate-vitamin D3 600 mg-12.5 mcg (500 unit) (Calcium 600 with Vitamin D3) calcium 1200, vit d 25mcg cefadroxil 500 mg PO BID cetirizine 10 mg PO DAILY PRN cholecalciferol (vitamin D3) 250 McG DAILY PO; clotrimazole-betamethasone 1-0.05 % 1 appl topical BID cranberry fruit concentrate (Azo Cranberry) PO BID docusate sodium 100 mg PO BID estradiol 0.01%(0.1mg/gram) grams vaginal 2XW ezetimibe 10 mg PO DAILY fluticasone propion-salmeterol 500-50 mcg/dose (Advair Diskus) 1 inh inhalation BID inhalational spacing device ([facility]e [facility] spacer) As directed losartan 25 mg PO DAILY magnesium oxide 500 mg PO DAILY mecobalamin (vitamin B12) mcg PO DAILY methenamine hippurate 1 g PO BID metoprolol succinate ER 75 mg PO DAILY mirtazapine 7.5 mg PO BEDTIME ivmsyxlw-iyw-fsvm-FA-vit K-lut (Multivitamin Women 50 Plus) PO psyllium husk (Metamucil) 0.4 grams PO DAILY Saccharomyces boulardii (Daily Probiotic (S. boulardii)) PO simethicone (Gas Relief (simethicone)) PO topiramate 50 mg PO DAILY vibegron (Gemtesa) 75 mg PO DAILY warfarin See Protocol 7.5mg x2days/ 5mg x5days; Nursing Note INR 1.7?out of therapeutic range OF 2-3 Medications and supplements reviewed NEW MULTIVITAMIN Patient status: FEELS WELL Medications or supplements: NEW FOCUS VITAMIN ( FOR MEMORY) Diet: USUAL Denies any signs and symptoms of bleeding or clotting or unusual bruising Bleeding, bruising, clotting discussed Nutritional guidance given: NO GREENS TODAY Dose: 5MG TODAY THEN 5MG x 4 DAYS AND 2.5MG x 3 DAYS F/U INR Date : 1 WEEK? Patient verbalizing understanding of instructions given. 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
== END 2024-01-19 11:28 | disposition home or self-care (01) ==
LOC: HO.ACS 11:00
PROVIDERS: PCP Internal Medicine; Visit Provider Internal Medicine
DX: Z79.01 Long term (current) use of anticoagulants (principal)

== ENCOUNTER → 2024-01-19 11:00 | Outpatient (BNVA) | payer MEDICARE, SELFPAY | PROVIDERS: PCP Internal Medicine; Visit Provider Internal Medicine | DX: I48.0 Paroxysmal atrial fibrillation (principal); Z79.01 Long term (current) use of anticoagulants; Z51.81 Encounter for therapeutic drug level monitoring | CPT/HCPCS: 85610; 99211 ==

== ENCOUNTER 2024-01-23 11:17 | Outpatient (AMB) | payer MEDICARE, SELFPAY ==
[2024-01-23 11:27] LABS: Prothrombin Time Whole Bld POC 23.6 sec (11.1-13.5)
--- NOTE | 2024-01-23 11:35 | MHC.OFFVISCO ---
Intake Intake Visit Reasons: Anticoagulation Allergies memantine Allergy (Severe, Verified 01/23/24 11:18) RAGE nitrofurantoin Allergy (Intermediate, Verified 01/23/24 11:18) RASH oseltamivir [From Tamiflu] Allergy (Intermediate, Verified 01/23/24 11:18) RASH oxycodone [From PERCOCET] Allergy (Unknown, Verified 01/23/24 11:18) UNKNOWN Penicillins [PENICILLINS] Allergy (Unknown, Verified 01/23/24 11:18) UNKNOWN Sulfa (Sulfonamide Antibiotics) [SULFA (SULFONAMIDE ANTIBIOTICS)] Allergy (Unknown, Verified 01/23/24 11:18) UNKNOWN Medication List - Last Reconciled 01/23/24 by Aby Schuler RN acetaminophen (Tylenol Extra Strength) 1,000 mg (2 x 500 mg) PO QID PRN albuterol sulfate 90 mcg/actuation 2 puffs inhalation Q4-6H PRN alendronate 70 mg PO QWEEK ascorbic acid (vitamin C) (Vitamin C) 500 mg PO TID azithromycin 500 mg PO ONCE PRN biotin 5,000 mcg PO DAILY calcium carbonate-vitamin D3 600 mg-12.5 mcg (500 unit) (Calcium 600 with Vitamin D3) calcium 1200, vit d 25mcg cetirizine 10 mg PO DAILY PRN cholecalciferol (vitamin D3) 250 McG DAILY PO; ciprofloxacin HCl 250 mg PO BID clotrimazole-betamethasone 1-0.05 % 1 appl topical BID cranberry fruit concentrate (Azo Cranberry) PO BID docusate sodium 100 mg PO BID estradiol 0.01%(0.1mg/gram) grams vaginal 2XW ezetimibe 10 mg PO DAILY fluticasone propion-salmeterol 500-50 mcg/dose (Advair Diskus) 1 inh inhalation BID inhalational spacing device ([facility] Rylee [facility] spacer) As directed losartan 25 mg PO DAILY magnesium oxide 500 mg PO DAILY mecobalamin (vitamin B12) mcg PO DAILY methenamine hippurate 1 g PO BID metoprolol succinate ER 75 mg PO DAILY mirtazapine 7.5 mg PO BEDTIME sspehbjh-pyu-tzco-FA-vit K-lut (Multivitamin Women 50 Plus) PO psyllium husk (Metamucil) 0.4 grams PO DAILY Saccharomyces boulardii (Daily Probiotic (S. boulardii)) PO simethicone (Gas Relief (simethicone)) PO topiramate 50 mg PO DAILY vibegron (Gemtesa) 75 mg PO DAILY warfarin See Protocol 7.5mg x2days/ 5mg x5days; Nursing Note INR: 2.0in therapeutic range Medications and supplements reviewed STILL HAS 3 DAYS IF CIPRO LEFT WHICH CAN RAISE THE INR WITH DELAYED ONSET Denies any signs and symptoms of bleeding or bruising or clotting. 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
== END 2024-01-23 11:41 | disposition home or self-care (01) ==
LOC: HO.ACS 11:17
PROVIDERS: PCP Internal Medicine; Visit Provider Internal Medicine
DX: Z79.01 Long term (current) use of anticoagulants (principal)

== ENCOUNTER → 2024-01-23 11:17 | Outpatient (BNVA) | payer MEDICARE, SELFPAY | PROVIDERS: PCP Internal Medicine; Visit Provider Internal Medicine | DX: I48.0 Paroxysmal atrial fibrillation (principal); Z79.01 Long term (current) use of anticoagulants; Z51.81 Encounter for therapeutic drug level monitoring | CPT/HCPCS: 85610; 99211 ==

== ENCOUNTER 2024-01-30 11:11 | Outpatient (AMB) | payer MEDICARE, SELFPAY ==
[2024-01-30 11:21] LABS: Prothrombin Time Whole Bld POC 23.3 sec (11.1-13.5); ~PT, ~INR - Anti Coag Clinic 1.9 (0.9-1.1)
--- NOTE | 2024-01-30 11:29 | MHC.OFFVISCO ---
Intake Intake Visit Reasons: Anticoagulation Allergies memantine Allergy (Severe, Verified 01/30/24 11:12) RAGE nitrofurantoin Allergy (Intermediate, Verified 01/30/24 11:12) RASH oseltamivir [From Tamiflu] Allergy (Intermediate, Verified 01/30/24 11:12) RASH oxycodone [From PERCOCET] Allergy (Unknown, Verified 01/30/24 11:12) UNKNOWN Penicillins [PENICILLINS] Allergy (Unknown, Verified 01/30/24 11:12) UNKNOWN Sulfa (Sulfonamide Antibiotics) [SULFA (SULFONAMIDE ANTIBIOTICS)] Allergy (Unknown, Verified 01/30/24 11:12) UNKNOWN Medication List - Last Reconciled 01/30/24 by Criselda Marshall RN acetaminophen (Tylenol Extra Strength) 1,000 mg (2 x 500 mg) PO QID PRN albuterol sulfate 90 mcg/actuation 2 puffs inhalation Q4-6H PRN alendronate 70 mg PO QWEEK ascorbic acid (vitamin C) (Vitamin C) 500 mg PO TID azithromycin 500 mg PO ONCE PRN biotin 5,000 mcg PO DAILY calcium carbonate-vitamin D3 600 mg-12.5 mcg (500 unit) (Calcium 600 with Vitamin D3) calcium 1200, vit d 25mcg cetirizine 10 mg PO DAILY PRN cholecalciferol (vitamin D3) 250 McG DAILY PO; ciprofloxacin HCl 250 mg PO BID clotrimazole-betamethasone 1-0.05 % 1 appl topical BID cranberry fruit concentrate (Azo Cranberry) PO BID docusate sodium 100 mg PO BID estradiol 0.01%(0.1mg/gram) grams vaginal 2XW ezetimibe 10 mg PO DAILY fluticasone propion-salmeterol 500-50 mcg/dose (Advair Diskus) 1 inh inhalation BID inhalational spacing device ([facility] R[facility]e [facility] spacer) As directed losartan 25 mg PO DAILY magnesium oxide 500 mg PO DAILY mecobalamin (vitamin B12) mcg PO DAILY methenamine hippurate 1 g PO BID metoprolol succinate ER 75 mg PO DAILY mirtazapine 7.5 mg PO BEDTIME mzkxebxq-cuf-ewkx-FA-vit K-lut (Multivitamin Women 50 Plus) PO psyllium husk (Metamucil) 0.4 grams PO DAILY Saccharomyces boulardii (Daily Probiotic (S. boulardii)) PO simethicone (Gas Relief (simethicone)) PO topiramate 50 mg PO DAILY vibegron (Gemtesa) 75 mg PO DAILY warfarin See Protocol 7.5mg x2days/ 5mg x5days; Nursing Note INR ?? out of therapeutic range Medications and supplements reviewed Patient status: [] Medications or supplements: [] Diet: [] Denies any signs and symptoms of bleeding or clotting or unusual bruising Bleeding, bruising, clotting discussed Nutritional guidance given: [] Dose: [] F/U INR Date : []?? Patient verbalizing understanding of instructions given. 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
--- NOTE | 2024-01-30 11:35 | MHC.OFFVISCO ---
Intake Intake Visit Reasons: Anticoagulation Allergies memantine Allergy (Severe, Verified 01/30/24 11:12) RAGE nitrofurantoin Allergy (Intermediate, Verified 01/30/24 11:12) RASH oseltamivir [From Tamiflu] Allergy (Intermediate, Verified 01/30/24 11:12) RASH oxycodone [From PERCOCET] Allergy (Unknown, Verified 01/30/24 11:12) UNKNOWN Penicillins [PENICILLINS] Allergy (Unknown, Verified 01/30/24 11:12) UNKNOWN Sulfa (Sulfonamide Antibiotics) [SULFA (SULFONAMIDE ANTIBIOTICS)] Allergy (Unknown, Verified 01/30/24 11:12) UNKNOWN Medication List - Last Reconciled 01/30/24 by Criselda Marshall RN acetaminophen (Tylenol Extra Strength) 1,000 mg (2 x 500 mg) PO QID PRN albuterol sulfate 90 mcg/actuation 2 puffs inhalation Q4-6H PRN alendronate 70 mg PO QWEEK ascorbic acid (vitamin C) (Vitamin C) 500 mg PO TID azithromycin 500 mg PO ONCE PRN biotin 5,000 mcg PO DAILY calcium carbonate-vitamin D3 600 mg-12.5 mcg (500 unit) (Calcium 600 with Vitamin D3) calcium 1200, vit d 25mcg cetirizine 10 mg PO DAILY PRN cholecalciferol (vitamin D3) 250 McG DAILY PO; ciprofloxacin HCl 250 mg PO BID clotrimazole-betamethasone 1-0.05 % 1 appl topical BID cranberry fruit concentrate (Azo Cranberry) PO BID docusate sodium 100 mg PO BID estradiol 0.01%(0.1mg/gram) grams vaginal 2XW ezetimibe 10 mg PO DAILY fluticasone propion-salmeterol 500-50 mcg/dose (Advair Diskus) 1 inh inhalation BID inhalational spacing device ([facility] spacer) As directed losartan 25 mg PO DAILY magnesium oxide 500 mg PO DAILY mecobalamin (vitamin B12) mcg PO DAILY methenamine hippurate 1 g PO BID metoprolol succinate ER 75 mg PO DAILY mirtazapine 7.5 mg PO BEDTIME gdgrppsz-ywd-unrz-FA-vit K-lut (Multivitamin Women 50 Plus) PO psyllium husk (Metamucil) 0.4 grams PO DAILY Saccharomyces boulardii (Daily Probiotic (S. boulardii)) PO simethicone (Gas Relief (simethicone)) PO topiramate 50 mg PO DAILY vibegron (Gemtesa) 75 mg PO DAILY warfarin See Protocol 7.5mg x2days/ 5mg x5days; Nursing Note PT TO [facility] ACCOMPANIED BY INR 1.9?out of therapeutic range OF 2-3 Medications and supplements reviewed: NO CHANGES Patient status: WELL Medications or supplements: NO CHANGES Diet: USUAL DIET FOR PT Denies any signs and symptoms of bleeding or clotting or unusual bruising Bleeding, bruising, clotting discussed Nutritional guidance given: NO GREENS TODAY. FOOD LIST REVIEWED AND PT WILL HAVE A SERVING OF FOODS THAT RAISE THE INR. Dose: 5MG x 2 DAYS AND 2.5MG x 5 DAYS F/U INR Date : 1 WEEK?? Patient verbalizing understanding of instructions given. Coding Level of Care Code Est Patient Level 1 Diagnoses Current use of anticoagulant therapy Z79.01 Results AMB INR Fingerstick AMB INR Fingerstick 1.9 Last Edit by Criselda Marshall RN on 01/30/24 11:33 INTERFACE DELAY Assessment & Plan Assessment & Plan (1) Current use of anticoagulant therapy: Code(s): Z79.01 - long-term (current) use of anticoagulants Category: Medical
--- NOTE | 2024-01-30 14:43 | MHC.OFFVISCO ---
Intake Intake Visit Reasons: Anticoagulation Allergies memantine Allergy (Severe, Verified 01/30/24 11:12) RAGE nitrofurantoin Allergy (Intermediate, Verified 01/30/24 11:12) RASH oseltamivir [From Tamiflu] Allergy (Intermediate, Verified 01/30/24 11:12) RASH oxycodone [From PERCOCET] Allergy (Unknown, Verified 01/30/24 11:12) UNKNOWN Penicillins [PENICILLINS] Allergy (Unknown, Verified 01/30/24 11:12) UNKNOWN Sulfa (Sulfonamide Antibiotics) [SULFA (SULFONAMIDE ANTIBIOTICS)] Allergy (Unknown, Verified 01/30/24 11:12) UNKNOWN Medication List - Last Reconciled 01/30/24 by Criselda Marshall RN acetaminophen (Tylenol Extra Strength) 1,000 mg (2 x 500 mg) PO QID PRN albuterol sulfate 90 mcg/actuation 2 puffs inhalation Q4-6H PRN alendronate 70 mg PO QWEEK ascorbic acid (vitamin C) (Vitamin C) 500 mg PO TID azithromycin 500 mg PO ONCE PRN biotin 5,000 mcg PO DAILY calcium carbonate-vitamin D3 600 mg-12.5 mcg (500 unit) (Calcium 600 with Vitamin D3) calcium 1200, vit d 25mcg cetirizine 10 mg PO DAILY PRN cholecalciferol (vitamin D3) 250 McG DAILY PO; ciprofloxacin HCl 250 mg PO BID clotrimazole-betamethasone 1-0.05 % 1 appl topical BID cranberry fruit concentrate (Azo Cranberry) PO BID docusate sodium 100 mg PO BID estradiol 0.01%(0.1mg/gram) grams vaginal 2XW ezetimibe 10 mg PO DAILY fluticasone propion-salmeterol 500-50 mcg/dose (Advair Diskus) 1 inh inhalation BID inhalational spacing device ([facility] spacer) As directed losartan 25 mg PO DAILY magnesium oxide 500 mg PO DAILY mecobalamin (vitamin B12) mcg PO DAILY methenamine hippurate 1 g PO BID metoprolol succinate ER 75 mg PO DAILY mirtazapine 7.5 mg PO BEDTIME xhjhwuiw-kxl-gakq-FA-vit K-lut (Multivitamin Women 50 Plus) PO psyllium husk (Metamucil) 0.4 grams PO DAILY Saccharomyces boulardii (Daily Probiotic (S. boulardii)) PO simethicone (Gas Relief (simethicone)) PO topiramate 50 mg PO DAILY vibegron (Gemtesa) 75 mg PO DAILY warfarin See Protocol 7.5mg x2days/ 5mg x5days; Nursing Note INR []?? out of therapeutic range Medications and supplements reviewed Patient status: [] Medications or supplements: [] Diet: [] Denies any signs and symptoms of bleeding or clotting or unusual bruising Bleeding, bruising, clotting discussed Nutritional guidance given: [] Dose: [] F/U INR Date : []?? Patient verbalizing understanding of instructions given. 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
== END 2024-01-30 11:38 | disposition home or self-care (01) ==
LOC: HO.ACS 11:11
PROVIDERS: PCP Internal Medicine; Visit Provider Internal Medicine
DX: Z79.01 Long term (current) use of anticoagulants (principal)

== ENCOUNTER → 2024-01-30 11:11 | Outpatient (BNVA) | payer MEDICARE, SELFPAY | PROVIDERS: PCP Internal Medicine; Visit Provider Internal Medicine | DX: I48.0 Paroxysmal atrial fibrillation (principal); Z51.81 Encounter for therapeutic drug level monitoring; Z79.01 Long term (current) use of anticoagulants | CPT/HCPCS: 85610; 99211 ==

== ENCOUNTER 2024-02-07 10:51 | Outpatient (AMB) | payer MEDICARE, SELFPAY ==
[2024-02-07 11:03] LABS: Prothrombin Time Whole Bld POC 20.4 sec (11.1-13.5); ~PT, ~INR - Anti Coag Clinic 1.7 (0.9-1.1)
--- NOTE | 2024-02-07 11:06 | MHC.OFFVISCO ---
Intake Intake Visit Reasons: Anticoagulation Allergies memantine Allergy (Severe, Verified 01/30/24 11:12) RAGE nitrofurantoin Allergy (Intermediate, Verified 01/30/24 11:12) RASH oseltamivir [From Tamiflu] Allergy (Intermediate, Verified 01/30/24 11:12) RASH oxycodone [From PERCOCET] Allergy (Unknown, Verified 01/30/24 11:12) UNKNOWN Penicillins [PENICILLINS] Allergy (Unknown, Verified 01/30/24 11:12) UNKNOWN Sulfa (Sulfonamide Antibiotics) [SULFA (SULFONAMIDE ANTIBIOTICS)] Allergy (Unknown, Verified 01/30/24 11:12) UNKNOWN Medication List - Last Reconciled 02/07/24 by Criselda Shoemaker RN acetaminophen (Tylenol Extra Strength) 1,000 mg (2 x 500 mg) PO QID PRN albuterol sulfate 90 mcg/actuation 2 puffs inhalation Q4-6H PRN alendronate 70 mg PO QWEEK ascorbic acid (vitamin C) (Vitamin C) 500 mg PO TID azithromycin 500 mg PO ONCE PRN biotin 5,000 mcg PO DAILY calcium carbonate-vitamin D3 600 mg-12.5 mcg (500 unit) (Calcium 600 with Vitamin D3) calcium 1200, vit d 25mcg cetirizine 10 mg PO DAILY PRN cholecalciferol (vitamin D3) 250 McG DAILY PO; clotrimazole-betamethasone 1-0.05 % 1 appl topical BID cranberry fruit concentrate (Azo Cranberry) PO BID docusate sodium 100 mg PO BID estradiol 0.01%(0.1mg/gram) grams vaginal 2XW ezetimibe 10 mg PO DAILY fluticasone propion-salmeterol 500-50 mcg/dose (Advair Diskus) 1 inh inhalation BID inhalational spacing device ([facility]e [facility] spacer) As directed losartan 25 mg PO DAILY magnesium oxide 500 mg PO DAILY mecobalamin (vitamin B12) mcg PO DAILY methenamine hippurate 1 g PO BID metoprolol succinate ER 75 mg PO DAILY mirtazapine 7.5 mg PO BEDTIME emqsvsor-pzq-gtrt-FA-vit K-lut (Multivitamin Women 50 Plus) PO psyllium husk (Metamucil) 0.4 grams PO DAILY Saccharomyces boulardii (Daily Probiotic (S. boulardii)) PO simethicone (Gas Relief (simethicone)) PO topiramate 50 mg PO DAILY vibegron (Gemtesa) 75 mg PO DAILY warfarin See Protocol 7.5mg x2days/ 5mg x5days; Nursing Note Amb to ACS using cane accomp by spouse spouse handles medication/pill box Medications and supplements reviewed, off Cipro, EMAR updated No changes in health, diet, medications, or supplements, Denies any unusual signs and symptoms of bleeding or bruising or clotting. INR 1.7 below therapeutic range, pt has been below or just in range over several visits Dose: increase weekly dosing to 5mg x 3 days (vs 2 days) and 2.5mg x 4 days (vs 5 days) reviewed with pt and dosing sheet for boost dose today and then new dosing pattern for next week Nutritional guidance given: no greens x 2 days then can do regular diet and balance greens and reds F/U INR: 10 days 02/16/24 Patient and verbalizes understanding of instructions given Coding Level of Care Code Est Patient Level 1 Diagnoses Current use of anticoagulant therapy Z79.01 Time Spent (min) 15 Assessment & Plan Assessment & Plan (1) Current use of anticoagulant therapy: Code(s): 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
== END 2024-02-07 11:27 | disposition home or self-care (01) ==
LOC: HO.ACS 10:51
PROVIDERS: PCP Internal Medicine; Visit Provider Internal Medicine
DX: Z79.01 Long term (current) use of anticoagulants (principal)

== ENCOUNTER → 2024-02-07 10:51 | Outpatient (BNVA) | payer MEDICARE, SELFPAY | PROVIDERS: PCP Internal Medicine; Visit Provider Internal Medicine | DX: I48.0 Paroxysmal atrial fibrillation (principal); Z79.01 Long term (current) use of anticoagulants; Z51.81 Encounter for therapeutic drug level monitoring | CPT/HCPCS: 85610; 99211 ==

== ENCOUNTER 2024-02-16 12:57 | Outpatient (AMB) | payer MEDICARE, SELFPAY ==
[2024-02-16 13:11] LABS: Prothrombin Time Whole Bld POC 30.2 sec (11.1-13.5); ~PT, ~INR - Anti Coag Clinic 2.5 (0.9-1.1)
--- NOTE | 2024-02-16 13:16 | MHC.OFFVISCO ---
Intake Intake Visit Reasons: Anticoagulation Allergies memantine Allergy (Severe, Verified 02/16/24 13:05) RAGE nitrofurantoin Allergy (Intermediate, Verified 02/16/24 13:05) RASH oseltamivir [From Tamiflu] Allergy (Intermediate, Verified 02/16/24 13:05) RASH oxycodone [From PERCOCET] Allergy (Unknown, Verified 02/16/24 13:05) UNKNOWN Penicillins [PENICILLINS] Allergy (Unknown, Verified 02/16/24 13:05) UNKNOWN Sulfa (Sulfonamide Antibiotics) [SULFA (SULFONAMIDE ANTIBIOTICS)] Allergy (Unknown, Verified 02/16/24 13:05) UNKNOWN Medication List - Last Reconciled 02/16/24 by Criselda Marshall RN acetaminophen (Tylenol Extra Strength) 1,000 mg (2 x 500 mg) PO QID PRN albuterol sulfate 90 mcg/actuation 2 puffs inhalation Q4-6H PRN alendronate 70 mg PO QWEEK ascorbic acid (vitamin C) (Vitamin C) 500 mg PO TID azithromycin 500 mg PO ONCE PRN biotin 5,000 mcg PO DAILY calcium carbonate-vitamin D3 600 mg-12.5 mcg (500 unit) (Calcium 600 with Vitamin D3) calcium 1200, vit d 25mcg cetirizine 10 mg PO DAILY PRN cholecalciferol (vitamin D3) 250 McG DAILY PO; clotrimazole-betamethasone 1-0.05 % 1 appl topical BID cranberry fruit concentrate (Azo Cranberry) PO BID docusate sodium 100 mg PO BID estradiol 0.01%(0.1mg/gram) grams vaginal 2XW ezetimibe 10 mg PO DAILY fluticasone propion-salmeterol 500-50 mcg/dose (Advair Diskus) 1 inh inhalation BID inhalational spacing device ([facility] spacer) As directed losartan 25 mg PO DAILY magnesium oxide 500 mg PO DAILY mecobalamin (vitamin B12) mcg PO DAILY methenamine hippurate 1 g PO BID metoprolol succinate ER 75 mg PO DAILY mirtazapine 7.5 mg PO BEDTIME ehkotxuo-xup-lqsf-FA-vit K-lut (Multivitamin Women 50 Plus) PO psyllium husk (Metamucil) 0.4 grams PO DAILY Saccharomyces boulardii (Daily Probiotic (S. boulardii)) PO simethicone (Gas Relief (simethicone)) PO topiramate 50 mg PO DAILY vibegron (Gemtesa) 75 mg PO DAILY warfarin See Protocol 7.5mg x2days/ 5mg x5days; Nursing Note INR: 2.5 in therapeutic range of 2-3 Medications and supplements reviewed: no changes No changes in health, diet, medications, or supplements, Denies any signs and symptoms of bleeding or bruising or clotting. 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
== END 2024-02-16 13:21 | disposition home or self-care (01) ==
LOC: HO.ACS 12:57
PROVIDERS: PCP Internal Medicine; Visit Provider Internal Medicine
DX: Z79.01 Long term (current) use of anticoagulants (principal)

== ENCOUNTER → 2024-02-16 12:57 | Outpatient (BNVA) | payer MEDICARE, SELFPAY | PROVIDERS: PCP Internal Medicine; Visit Provider Internal Medicine | DX: I48.0 Paroxysmal atrial fibrillation (principal); Z79.01 Long term (current) use of anticoagulants; Z51.81 Encounter for therapeutic drug level monitoring | CPT/HCPCS: 85610; 99211 ==

== ENCOUNTER 2024-03-01 10:52 | Outpatient (AMB) | payer MEDICARE, SELFPAY ==
[2024-03-01 11:19] LABS: Prothrombin Time Whole Bld POC 26.6 sec (11.1-13.5); ~PT, ~INR - Anti Coag Clinic 2.2 (0.9-1.1)
--- NOTE | 2024-03-01 11:27 | MHC.OFFVISCO ---
Intake Intake Visit Reasons: Anticoagulation Allergies memantine Allergy (Severe, Verified 03/01/24 11:13) RAGE nitrofurantoin Allergy (Intermediate, Verified 03/01/24 11:13) RASH oseltamivir [From Tamiflu] Allergy (Intermediate, Verified 03/01/24 11:13) RASH oxycodone [From PERCOCET] Allergy (Unknown, Verified 03/01/24 11:13) UNKNOWN Penicillins [PENICILLINS] Allergy (Unknown, Verified 03/01/24 11:13) UNKNOWN Sulfa (Sulfonamide Antibiotics) [SULFA (SULFONAMIDE ANTIBIOTICS)] Allergy (Unknown, Verified 03/01/24 11:13) UNKNOWN Medication List - Last Reconciled 03/01/24 by Leidy Donahue RN acetaminophen (Tylenol Extra Strength) 1,000 mg (2 x 500 mg) PO QID PRN albuterol sulfate 90 mcg/actuation 2 puffs inhalation Q4-6H PRN alendronate 70 mg PO QWEEK ascorbic acid (vitamin C) (Vitamin C) 500 mg PO TID azithromycin 500 mg PO ONCE PRN biotin 5,000 mcg PO DAILY calcium carbonate-vitamin D3 600 mg-12.5 mcg (500 unit) (Calcium 600 with Vitamin D3) calcium 1200, vit d 25mcg cetirizine 10 mg PO DAILY PRN cholecalciferol (vitamin D3) 250 McG DAILY PO; clotrimazole-betamethasone 1-0.05 % 1 appl topical BID cranberry fruit concentrate (Azo Cranberry) PO BID docusate sodium 100 mg PO BID estradiol 0.01%(0.1mg/gram) grams vaginal 2XW ezetimibe 10 mg PO DAILY fluticasone propion-salmeterol 500-50 mcg/dose (Advair Diskus) 1 inh inhalation BID inhalational spacing device ([facility] spacer) As directed losartan 25 mg PO DAILY magnesium oxide 500 mg PO DAILY mecobalamin (vitamin B12) mcg PO DAILY methenamine hippurate 1 g PO BID metoprolol succinate ER 75 mg PO DAILY mirtazapine 7.5 mg PO BEDTIME kjzywiwh-dst-mtpx-FA-vit K-lut (Multivitamin Women 50 Plus) PO psyllium husk (Metamucil) 0.4 grams PO DAILY Saccharomyces boulardii (Daily Probiotic (S. boulardii)) PO simethicone (Gas Relief (simethicone)) PO topiramate 50 mg PO DAILY vibegron (Gemtesa) 75 mg PO DAILY warfarin See Protocol 7.5mg x2days/ 5mg x5days; Nursing Note NO CP,SOB,DIET/MED CHANGES,FALLS OR SX OF BLEEDING. CONTINUE PRESENT DOSING AND FOLLOW-UP IN 3 WEEKS. GOOD UNDERSTANDING OF DOSING INSTR. 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
== END 2024-03-01 11:28 | disposition home or self-care (01) ==
LOC: HO.ACS 10:52
PROVIDERS: PCP Internal Medicine; Visit Provider Internal Medicine
DX: Z79.01 Long term (current) use of anticoagulants (principal)

== ENCOUNTER → 2024-03-01 10:52 | Outpatient (BNVA) | payer MEDICARE, SELFPAY | PROVIDERS: PCP Internal Medicine; Visit Provider Internal Medicine | DX: I48.0 Paroxysmal atrial fibrillation (principal); Z79.01 Long term (current) use of anticoagulants; Z51.81 Encounter for therapeutic drug level monitoring | CPT/HCPCS: 85610; 99211 ==

== ENCOUNTER 2024-03-20 13:07 | Outpatient (AMB) | payer MEDICARE, SELFPAY ==
[2024-03-20 13:15] LABS: Prothrombin Time Whole Bld POC 31.9 sec (11.1-13.5); ~PT, ~INR - Anti Coag Clinic 2.7 (0.9-1.1)
--- NOTE | 2024-03-20 13:22 | MHC.OFFVISCO ---
Intake Intake Visit Reasons: Anticoagulation Allergies memantine Allergy (Severe, Verified 03/20/24 13:10) RAGE nitrofurantoin Allergy (Intermediate, Verified 03/20/24 13:10) RASH oseltamivir [From Tamiflu] Allergy (Intermediate, Verified 03/20/24 13:10) RASH oxycodone [From PERCOCET] Allergy (Unknown, Verified 03/20/24 13:10) UNKNOWN Penicillins [PENICILLINS] Allergy (Unknown, Verified 03/20/24 13:10) UNKNOWN Sulfa (Sulfonamide Antibiotics) [SULFA (SULFONAMIDE ANTIBIOTICS)] Allergy (Unknown, Verified 03/20/24 13:10) UNKNOWN Medication List - Last Reconciled 03/20/24 by Aby Schuler RN acetaminophen (Tylenol Extra Strength) 1,000 mg (2 x 500 mg) PO QID PRN albuterol sulfate 90 mcg/actuation 2 puffs inhalation Q4-6H PRN alendronate 70 mg PO QWEEK ascorbic acid (vitamin C) (Vitamin C) 500 mg PO TID azithromycin 500 mg PO ONCE PRN biotin 5,000 mcg PO DAILY calcium carbonate-vitamin D3 600 mg-12.5 mcg (500 unit) (Calcium 600 with Vitamin D3) calcium 1200, vit d 25mcg cetirizine 10 mg PO DAILY PRN cholecalciferol (vitamin D3) 250 McG DAILY PO; clotrimazole-betamethasone 1-0.05 % 1 appl topical BID cranberry fruit concentrate (Azo Cranberry) PO BID docusate sodium 100 mg PO BID estradiol 0.01%(0.1mg/gram) grams vaginal 2XW ezetimibe 10 mg PO DAILY fluticasone propion-salmeterol 500-50 mcg/dose (Advair Diskus) 1 inh inhalation BID inhalational spacing device ([facility] spacer) As directed losartan 25 mg PO DAILY magnesium oxide 500 mg PO DAILY mecobalamin (vitamin B12) mcg PO DAILY methenamine hippurate 1 g PO BID metoprolol succinate ER 75 mg PO DAILY mirtazapine 7.5 mg PO BEDTIME rgcbuvfs-qev-exoj-FA-vit K-lut (Multivitamin Women 50 Plus) PO psyllium husk (Metamucil) 0.4 grams PO DAILY Saccharomyces boulardii (Daily Probiotic (S. boulardii)) PO simethicone (Gas Relief (simethicone)) PO topiramate 50 mg PO DAILY vibegron (Gemtesa) 75 mg PO DAILY warfarin See Protocol 7.5mg x2days/ 5mg x5days; Nursing Note INR: 2.7 in therapeutic range Medications and supplements reviewed No changes in health, diet, medications, or supplements, Denies any signs and symptoms of bleeding or bruising or clotting. Bleeding, bruising, clotting discussed Nutritional guidance given Dose: KEEP SAME DOSE 5MG X 3 DAYS/ 2.5MG X 4 DAYS F/U INR: 3 WEEKS Patient verbalizes understanding of instructions given Coding Level of Care Code Est Patient Level 1 Diagnoses Current use of anticoagulant therapy Z79.01 Results AMB INR Fingerstick AMB INR Fingerstick 2.7 Last Edit by Aby Schuler RN on 03/20/24 13:16 MANUAL ENTRY NO INTERFACING ONGOIN Assessment & Plan Assessment & Plan (1) Current use of anticoagulant therapy: Code(s): Z79.01 - [facility] (current) use of anticoagulants Category: Medical
== END 2024-03-20 13:23 | disposition home or self-care (01) ==
LOC: HO.ACS 13:07
PROVIDERS: PCP Internal Medicine; Visit Provider Internal Medicine
DX: Z79.01 Long term (current) use of anticoagulants (principal)

== ENCOUNTER → 2024-03-20 13:07 | Outpatient (BNVA) | payer MEDICARE, SELFPAY | PROVIDERS: PCP Internal Medicine; Visit Provider Internal Medicine | DX: I48.0 Paroxysmal atrial fibrillation (principal); Z79.01 Long term (current) use of anticoagulants; Z51.81 Encounter for therapeutic drug level monitoring | CPT/HCPCS: 85610; 99211 ==

== ENCOUNTER 2024-04-10 11:13 | Outpatient (AMB) | payer MEDICARE, SELFPAY ==
--- NOTE | 2024-04-10 11:20 | MHC.OFFVISCO ---
Intake Intake Visit Reasons: Anticoagulation Allergies memantine Allergy (Severe, Verified 04/10/24 11:14) RAGE nitrofurantoin Allergy (Intermediate, Verified 04/10/24 11:14) RASH oseltamivir [From Tamiflu] Allergy (Intermediate, Verified 04/10/24 11:14) RASH oxycodone [From PERCOCET] Allergy (Unknown, Verified 04/10/24 11:14) UNKNOWN Penicillins [PENICILLINS] Allergy (Unknown, Verified 04/10/24 11:14) UNKNOWN Sulfa (Sulfonamide Antibiotics) [SULFA (SULFONAMIDE ANTIBIOTICS)] Allergy (Unknown, Verified 04/10/24 11:14) UNKNOWN Medication List - Last Reconciled 04/10/24 by Petra Petersen RN acetaminophen (Tylenol Extra Strength) 1,000 mg (2 x 500 mg) PO QID PRN albuterol sulfate 90 mcg/actuation 2 puffs inhalation Q4-6H PRN alendronate 70 mg PO QWEEK ascorbic acid (vitamin C) (Vitamin C) 500 mg PO TID azithromycin 500 mg PO ONCE PRN biotin 5,000 mcg PO DAILY calcium carbonate-vitamin D3 600 mg-12.5 mcg (500 unit) (Calcium 600 with Vitamin D3) calcium 1200, vit d 25mcg cetirizine 10 mg PO DAILY PRN cholecalciferol (vitamin D3) 250 McG DAILY PO; clotrimazole-betamethasone 1-0.05 % 1 appl topical BID cranberry fruit concentrate (Azo Cranberry) PO BID docusate sodium 100 mg PO BID estradiol 0.01%(0.1mg/gram) grams vaginal 2XW ezetimibe 10 mg PO DAILY fluticasone propion-salmeterol 500-50 mcg/dose (Advair Diskus) 1 inh inhalation BID inhalational spacing device ([facility] spacer) As directed losartan 25 mg PO DAILY magnesium oxide 500 mg PO DAILY mecobalamin (vitamin B12) mcg PO DAILY methenamine hippurate 1 g PO BID metoprolol succinate ER 75 mg PO DAILY mirtazapine 7.5 mg PO BEDTIME lgkdbcqm-vab-cypw-FA-vit K-lut (Multivitamin Women 50 Plus) PO psyllium husk (Metamucil) 0.4 grams PO DAILY Saccharomyces boulardii (Daily Probiotic (S. boulardii)) PO simethicone (Gas Relief (simethicone)) PO topiramate 50 mg PO DAILY vibegron (Gemtesa) 75 mg PO DAILY warfarin See Protocol 7.5mg x2days/ 5mg x5days; Nursing Note INR: 2.0- in therapeutic range of 2-3 Medications and supplements reviewed No changes in health, diet, medications, or supplements, Denies any signs and symptoms of bleeding or bruising or clotting. 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
[2024-04-10 11:21] LABS: Prothrombin Time Whole Bld POC 23.7 sec (11.1-13.5)
== END 2024-04-10 11:27 | disposition home or self-care (01) ==
LOC: HO.ACS 11:13
PROVIDERS: PCP Internal Medicine; Visit Provider Internal Medicine
DX: Z79.01 Long term (current) use of anticoagulants (principal)

== ENCOUNTER → 2024-04-10 11:13 | Outpatient (BNVA) | payer MEDICARE, SELFPAY | PROVIDERS: PCP Internal Medicine; Visit Provider Internal Medicine | DX: I48.0 Paroxysmal atrial fibrillation (principal); Z79.01 Long term (current) use of anticoagulants; Z51.81 Encounter for therapeutic drug level monitoring | CPT/HCPCS: 85610; 99211 ==

== ENCOUNTER 2024-05-01 11:01 | Outpatient (AMB) | payer MEDICARE, SELFPAY ==
--- NOTE | 2024-05-01 11:11 | MHC.OFFVISCO ---
Intake Intake Visit Reasons: Anticoagulation Allergies memantine Allergy (Severe, Verified 05/01/24 11:07) RAGE nitrofurantoin Allergy (Intermediate, Verified 05/01/24 11:07) RASH oseltamivir [From Tamiflu] Allergy (Intermediate, Verified 05/01/24 11:07) RASH oxycodone [From PERCOCET] Allergy (Unknown, Verified 05/01/24 11:07) UNKNOWN Penicillins [PENICILLINS] Allergy (Unknown, Verified 05/01/24 11:07) UNKNOWN Sulfa (Sulfonamide Antibiotics) [SULFA (SULFONAMIDE ANTIBIOTICS)] Allergy (Unknown, Verified 05/01/24 11:07) UNKNOWN Medication List - Last Reconciled 05/01/24 by Petra Petersen RN acetaminophen (Tylenol Extra Strength) 1,000 mg (2 x 500 mg) PO QID PRN albuterol sulfate 90 mcg/actuation 2 puffs inhalation Q4-6H PRN alendronate 70 mg PO QWEEK ascorbic acid (vitamin C) (Vitamin C) 500 mg PO TID azithromycin 500 mg PO ONCE PRN biotin 5,000 mcg PO DAILY calcium carbonate-vitamin D3 600 mg-12.5 mcg (500 unit) (Calcium 600 with Vitamin D3) calcium 1200, vit d 25mcg cetirizine 10 mg PO DAILY PRN cholecalciferol (vitamin D3) 250 McG DAILY PO; clotrimazole-betamethasone 1-0.05 % 1 appl topical BID cranberry fruit concentrate (Azo Cranberry) PO BID docusate sodium 100 mg PO BID estradiol 0.01%(0.1mg/gram) grams vaginal 2XW ezetimibe 10 mg PO DAILY fluticasone propion-salmeterol 500-50 mcg/dose (Advair Diskus) 1 inh inhalation BID inhalational spacing device ([facility] spacer) As directed losartan 25 mg PO DAILY magnesium oxide 500 mg PO DAILY mecobalamin (vitamin B12) mcg PO DAILY methenamine hippurate 1 g PO BID metoprolol succinate ER 75 mg PO DAILY mirtazapine 7.5 mg PO BEDTIME bmvbzajq-ujj-bnfq-FA-vit K-lut (Multivitamin Women 50 Plus) PO psyllium husk (Metamucil) 0.4 grams PO DAILY Saccharomyces boulardii (Daily Probiotic (S. boulardii)) PO simethicone (Gas Relief (simethicone)) PO topiramate 50 mg PO DAILY vibegron (Gemtesa) 75 mg PO DAILY warfarin See Protocol 7.5mg x2days/ 5mg x5days; Nursing Note INR 1.4-?? out of therapeutic range of 2-3 denies missd dose, present for visit Medications and supplements reviewed Patient status: amb with cane, pt states son passed recently- increased stress can raise inr Medications or supplements: no changes Diet: appetite is fair Denies any signs and symptoms of bleeding or clotting or unusual bruising Bleeding, bruising, clotting discussed - aware at risk for clotting Nutritional guidance given: no greens for 2-3 days, eat reds to raise Dose: 5mg today , 5mg tom and 2.5mg on F/U INR Date : recheck on tuesday05/04/24? Patient verbalizing understanding of instructions given. 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
[2024-05-01 11:12] LABS: Prothrombin Time Whole Bld POC 16.6 sec (11.1-13.5); ~PT, ~INR - Anti Coag Clinic 1.4 (0.9-1.1)
== END 2024-05-01 11:35 | disposition home or self-care (01) ==
LOC: HO.ACS 11:01
PROVIDERS: PCP Internal Medicine; Visit Provider Internal Medicine
DX: Z79.01 Long term (current) use of anticoagulants (principal)

== ENCOUNTER → 2024-05-01 11:01 | Outpatient (BNVA) | payer MEDICARE, SELFPAY | PROVIDERS: PCP Internal Medicine; Visit Provider Internal Medicine | DX: I48.0 Paroxysmal atrial fibrillation (principal); Z79.01 Long term (current) use of anticoagulants; Z51.81 Encounter for therapeutic drug level monitoring | CPT/HCPCS: 85610; 99211 ==

== ENCOUNTER 2024-05-04 11:18 | Outpatient (AMB) | payer MEDICARE, SELFPAY ==
[2024-05-04 11:29] LABS: Prothrombin Time Whole Bld POC 24.8 sec (11.1-13.5); ~PT, ~INR - Anti Coag Clinic 2.1 (0.9-1.1)
--- NOTE | 2024-05-04 11:37 | MHC.OFFVISCO ---
Intake Intake Visit Reasons: Anticoagulation Allergies memantine Allergy (Severe, Verified 05/04/24 11:20) RAGE nitrofurantoin Allergy (Intermediate, Verified 05/04/24 11:20) RASH oseltamivir [From Tamiflu] Allergy (Intermediate, Verified 05/04/24 11:20) RASH oxycodone [From PERCOCET] Allergy (Unknown, Verified 05/04/24 11:20) UNKNOWN Penicillins [PENICILLINS] Allergy (Unknown, Verified 05/04/24 11:20) UNKNOWN Sulfa (Sulfonamide Antibiotics) [SULFA (SULFONAMIDE ANTIBIOTICS)] Allergy (Unknown, Verified 05/04/24 11:20) UNKNOWN Medication List - Last Reconciled 05/04/24 by Aby Schuler RN acetaminophen (Tylenol Extra Strength) 1,000 mg (2 x 500 mg) PO QID PRN albuterol sulfate 90 mcg/actuation 2 puffs inhalation Q4-6H PRN alendronate 70 mg PO QWEEK ascorbic acid (vitamin C) (Vitamin C) 500 mg PO TID azithromycin 500 mg PO ONCE PRN biotin 5,000 mcg PO DAILY calcium carbonate-vitamin D3 600 mg-12.5 mcg (500 unit) (Calcium 600 with Vitamin D3) calcium 1200, vit d 25mcg cetirizine 10 mg PO DAILY PRN cholecalciferol (vitamin D3) 250 McG DAILY PO; clotrimazole-betamethasone 1-0.05 % 1 appl topical BID cranberry fruit concentrate (Azo Cranberry) PO BID docusate sodium 100 mg PO BID estradiol 0.01%(0.1mg/gram) grams vaginal 2XW ezetimibe 10 mg PO DAILY fluticasone propion-salmeterol 500-50 mcg/dose (Advair Diskus) 1 inh inhalation BID inhalational spacing device ([facility] spacer) As directed lorazepam mg PO losartan 25 mg PO DAILY magnesium oxide 500 mg PO DAILY mecobalamin (vitamin B12) mcg PO DAILY methenamine hippurate 1 g PO BID metoprolol succinate ER 75 mg PO DAILY mirtazapine 7.5 mg PO BEDTIME adelhvsc-fmq-ipdp-FA-vit K-lut (Multivitamin Women 50 Plus) PO psyllium husk (Metamucil) 0.4 grams PO DAILY Saccharomyces boulardii (Daily Probiotic (S. boulardii)) PO simethicone (Gas Relief (simethicone)) PO topiramate 50 mg PO DAILY vibegron (Gemtesa) 75 mg PO DAILY warfarin See Protocol 7.5mg x2days/ 5mg x5days; Nursing Note INR: 2.1 in therapeutic range Medications and supplements reviewed Son - going through paperwork processes, cleaning out sons apartment, Denies any signs and symptoms of bleeding or bruising or clotting. Bleeding, bruising, clotting discussed Nutritional guidance given - enc to try to eat as healthy as she can, enc eating a mix of fruits and vegetables Dose: resume usual dose 5mg x 3 days/ 2.5mg x 4 days F/U INR: 2 weeks ( cleaning out sons apartment next week) Patient verbalizes understanding of instructions given . Coding Level of Care Code Est Patient Level 1 Diagnoses Current use of anticoagulant therapy Z79.01 Results AMB INR Fingerstick AMB INR Fingerstick 2.1 Last Edit by Aby Schuler RN on 05/04/24 11:31 failed interfacing on going manual entry Assessment & Plan Assessment & Plan (1) Current use of anticoagulant therapy: Code(s): Z79.01 - [facility] (current) use of anticoagulants Category: Medical
== END 2024-05-04 11:51 | disposition home or self-care (01) ==
LOC: HO.ACS 11:18
PROVIDERS: PCP Internal Medicine; Visit Provider Internal Medicine
DX: Z79.01 Long term (current) use of anticoagulants (principal)

== ENCOUNTER → 2024-05-04 11:18 | Outpatient (BNVA) | payer MEDICARE, SELFPAY | PROVIDERS: PCP Internal Medicine; Visit Provider Internal Medicine | DX: I48.0 Paroxysmal atrial fibrillation (principal); Z79.01 Long term (current) use of anticoagulants; Z51.81 Encounter for therapeutic drug level monitoring | CPT/HCPCS: 85610; 99211 ==

== ENCOUNTER 2024-05-18 10:57 | Outpatient (AMB) | payer MEDICARE, SELFPAY ==
[2024-05-18 11:05] LABS: Prothrombin Time Whole Bld POC 21.5 sec (11.1-13.5); ~PT, ~INR - Anti Coag Clinic 1.8 (0.9-1.1)
--- NOTE | 2024-05-18 11:14 | MHC.OFFVISCO ---
Intake Intake Visit Reasons: Anticoagulation Allergies memantine Allergy (Severe, Verified 05/18/24 10:57) RAGE nitrofurantoin Allergy (Intermediate, Verified 05/18/24 10:57) RASH oseltamivir [From Tamiflu] Allergy (Intermediate, Verified 05/18/24 10:57) RASH oxycodone [From PERCOCET] Allergy (Unknown, Verified 05/18/24 10:57) UNKNOWN Penicillins [PENICILLINS] Allergy (Unknown, Verified 05/18/24 10:57) UNKNOWN Sulfa (Sulfonamide Antibiotics) [SULFA (SULFONAMIDE ANTIBIOTICS)] Allergy (Unknown, Verified 05/18/24 10:57) UNKNOWN Medication List - Last Reconciled 05/18/24 by Leidy Donahue RN acetaminophen (Tylenol Extra Strength) 1,000 mg (2 x 500 mg) PO QID PRN albuterol sulfate 90 mcg/actuation 2 puffs inhalation Q4-6H PRN alendronate 70 mg PO QWEEK ascorbic acid (vitamin C) (Vitamin C) 500 mg PO TID azithromycin 500 mg PO ONCE PRN biotin 5,000 mcg PO DAILY calcium carbonate-vitamin D3 600 mg-12.5 mcg (500 unit) (Calcium 600 with Vitamin D3) calcium 1200, vit d 25mcg cetirizine 10 mg PO DAILY PRN cholecalciferol (vitamin D3) 250 McG DAILY PO; clotrimazole-betamethasone 1-0.05 % 1 appl topical BID cranberry fruit concentrate (Azo Cranberry) PO BID docusate sodium 100 mg PO BID estradiol 0.01%(0.1mg/gram) grams vaginal 2XW ezetimibe 10 mg PO DAILY fluticasone propion-salmeterol 500-50 mcg/dose (Advair Diskus) 1 inh inhalation BID inhalational spacing device ([facility] spacer) As directed losartan 25 mg PO DAILY magnesium oxide 500 mg PO DAILY mecobalamin (vitamin B12) mcg PO DAILY methenamine hippurate 1 g PO BID metoprolol succinate ER 75 mg PO DAILY mirtazapine 7.5 mg PO BEDTIME nodyvafs-vnl-zajs-FA-vit K-lut (Multivitamin Women 50 Plus) PO psyllium husk (Metamucil) 0.4 grams PO DAILY Saccharomyces boulardii (Daily Probiotic (S. boulardii)) PO simethicone (Gas Relief (simethicone)) PO topiramate 50 mg PO DAILY vibegron (Gemtesa) 75 mg PO DAILY warfarin See Protocol 7.5mg x2days/ 5mg x5days; Nursing Note PT.UNSURE IF SHE HAS MISSED ANY DOSES. NO CP,SOB,DIET/MED CHANGES,FALLS OR SX OF BLEEDING. BOOST TO 7.5MGM TODAY THEN RESUME PRESENT DOSING AND FOLLOW-UP IN 2 WEEKS. NO GREENS 2 DAYS GOOD UNDERSTANDING VERB. Coding Level of Care Code Est Patient Level 1 Diagnoses Current use of anticoagulant therapy Z79.01 Assessment & Plan Assessment & Plan (1) Current use of anticoagulant therapy: Code(s): Z79.01 - nursing home (current) use of anticoagulants Category: Medical
== END 2024-05-18 11:16 | disposition home or self-care (01) ==
LOC: HO.ACS 10:57
PROVIDERS: PCP Internal Medicine; Visit Provider Internal Medicine
DX: Z79.01 Long term (current) use of anticoagulants (principal)

== ENCOUNTER → 2024-05-18 10:57 | Outpatient (BNVA) | payer MEDICARE, SELFPAY | PROVIDERS: PCP Internal Medicine; Visit Provider Internal Medicine | DX: I48.0 Paroxysmal atrial fibrillation (principal); Z79.01 Long term (current) use of anticoagulants; Z51.81 Encounter for therapeutic drug level monitoring | CPT/HCPCS: 85610; 99211 ==

== ENCOUNTER 2024-06-01 12:59 | Outpatient (AMB) | payer MEDICARE, SELFPAY ==
[2024-06-01 13:07] LABS: Prothrombin Time Whole Bld POC 31.2 sec (11.1-13.5); ~PT, ~INR - Anti Coag Clinic 2.6 (0.9-1.1)
--- NOTE | 2024-06-01 13:15 | MHC.OFFVISCO ---
Intake Intake Visit Reasons: Anticoagulation Allergies memantine Allergy (Severe, Verified 05/18/24 10:57) RAGE nitrofurantoin Allergy (Intermediate, Verified 05/18/24 10:57) RASH oseltamivir [From Tamiflu] Allergy (Intermediate, Verified 05/18/24 10:57) RASH oxycodone [From PERCOCET] Allergy (Unknown, Verified 05/18/24 10:57) UNKNOWN Penicillins [PENICILLINS] Allergy (Unknown, Verified 05/18/24 10:57) UNKNOWN Sulfa (Sulfonamide Antibiotics) [SULFA (SULFONAMIDE ANTIBIOTICS)] Allergy (Unknown, Verified 05/18/24 10:57) UNKNOWN Medication List - Last Reconciled 06/01/24 by Criselda Marshall RN acetaminophen (Tylenol Extra Strength) 1,000 mg (2 x 500 mg) PO QID PRN albuterol sulfate 90 mcg/actuation 2 puffs inhalation Q4-6H PRN alendronate 70 mg PO QWEEK ascorbic acid (vitamin C) (Vitamin C) 500 mg PO TID azithromycin 500 mg PO ONCE PRN biotin 5,000 mcg PO DAILY calcium carbonate-vitamin D3 600 mg-12.5 mcg (500 unit) (Calcium 600 with Vitamin D3) calcium 1200, vit d 25mcg cetirizine 10 mg PO DAILY PRN cholecalciferol (vitamin D3) 250 McG DAILY PO; clotrimazole-betamethasone 1-0.05 % 1 appl topical BID cranberry fruit concentrate (Azo Cranberry) PO BID docusate sodium 100 mg PO BID estradiol 0.01%(0.1mg/gram) grams vaginal 2XW ezetimibe 10 mg PO DAILY fluticasone propion-salmeterol 500-50 mcg/dose (Advair Diskus) 1 inh inhalation BID inhalational spacing device ([facility] spacer) As directed losartan 25 mg PO DAILY magnesium oxide 500 mg PO DAILY mecobalamin (vitamin B12) mcg PO DAILY methenamine hippurate 1 g PO BID metoprolol succinate ER 75 mg PO DAILY mirtazapine 7.5 mg PO BEDTIME sedmbrli-swp-ekng-FA-vit K-lut (Multivitamin Women 50 Plus) PO psyllium husk (Metamucil) 0.4 grams PO DAILY Saccharomyces boulardii (Daily Probiotic (S. boulardii)) PO simethicone (Gas Relief (simethicone)) PO topiramate 50 mg PO DAILY vibegron (Gemtesa) 75 mg PO DAILY warfarin See Protocol 7.5mg x2days/ 5mg x5days; Nursing Note INR: 2.6 in therapeutic range of 2-3 Medications and supplements reviewed No changes in health, diet, medications, or supplements, Denies any signs and symptoms of bleeding or bruising or clotting. 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
== END 2024-06-01 13:17 | disposition home or self-care (01) ==
LOC: HO.ACS 12:59
PROVIDERS: PCP Internal Medicine; Visit Provider Internal Medicine
DX: Z79.01 Long term (current) use of anticoagulants (principal)

== ENCOUNTER → 2024-06-01 12:59 | Outpatient (BNVA) | payer MEDICARE, SELFPAY | PROVIDERS: PCP Internal Medicine; Visit Provider Internal Medicine | DX: I48.0 Paroxysmal atrial fibrillation (principal); Z79.01 Long term (current) use of anticoagulants; Z51.81 Encounter for therapeutic drug level monitoring | CPT/HCPCS: 85610; 99211 ==

== ENCOUNTER 2024-06-19 11:03 | Outpatient (AMB) | payer MEDICARE, SELFPAY ==
[2024-06-19 11:10] LABS: Prothrombin Time Whole Bld POC 23.5 sec (11.1-13.5)
--- NOTE | 2024-06-19 11:15 | MHC.OFFVISCO ---
Intake Intake Visit Reasons: Anticoagulation Allergies memantine Allergy (Severe, Verified 06/19/24 11:06) RAGE nitrofurantoin Allergy (Intermediate, Verified 06/19/24 11:06) RASH oseltamivir [From Tamiflu] Allergy (Intermediate, Verified 06/19/24 11:06) RASH oxycodone [From PERCOCET] Allergy (Unknown, Verified 06/19/24 11:06) UNKNOWN Penicillins [PENICILLINS] Allergy (Unknown, Verified 06/19/24 11:06) UNKNOWN Sulfa (Sulfonamide Antibiotics) [SULFA (SULFONAMIDE ANTIBIOTICS)] Allergy (Unknown, Verified 06/19/24 11:06) UNKNOWN Medication List - Last Reconciled 06/19/24 by Criselda Marshall RN acetaminophen (Tylenol Extra Strength) 1,000 mg (2 x 500 mg) PO QID PRN albuterol sulfate 90 mcg/actuation 2 puffs inhalation Q4-6H PRN alendronate 70 mg PO QWEEK ascorbic acid (vitamin C) (Vitamin C) 500 mg PO TID azithromycin 500 mg PO ONCE PRN biotin 5,000 mcg PO DAILY calcium carbonate-vitamin D3 600 mg-12.5 mcg (500 unit) (Calcium 600 with Vitamin D3) calcium 1200, vit d 25mcg cetirizine 10 mg PO DAILY PRN cholecalciferol (vitamin D3) 250 McG DAILY PO; clotrimazole-betamethasone 1-0.05 % 1 appl topical BID cranberry fruit concentrate (Azo Cranberry) PO BID docusate sodium 100 mg PO BID estradiol 0.01%(0.1mg/gram) grams vaginal 2XW ezetimibe 10 mg PO DAILY fluticasone propion-salmeterol 500-50 mcg/dose (Advair Diskus) 1 inh inhalation BID inhalational spacing device ([facility]e [facility] spacer) As directed losartan 25 mg PO DAILY magnesium oxide 500 mg PO DAILY mecobalamin (vitamin B12) mcg PO DAILY methenamine hippurate 1 g PO BID metoprolol succinate ER 75 mg PO DAILY mirtazapine 7.5 mg PO BEDTIME bfmxtjxh-wzg-uefr-FA-vit K-lut (Multivitamin Women 50 Plus) PO psyllium husk (Metamucil) 0.4 grams PO DAILY Saccharomyces boulardii (Daily Probiotic (S. boulardii)) PO simethicone (Gas Relief (simethicone)) PO topiramate 50 mg PO DAILY vibegron (Gemtesa) 75 mg PO DAILY warfarin See Protocol 7.5mg x2days/ 5mg x5days; Nursing Note INR: 2.0 in therapeutic range 2-3 Medications and supplements reviewed No changes in health, diet, medications, or supplements, Denies any signs and symptoms of bleeding or bruising or clotting. Bleeding, bruising, clotting discussed Nutritional guidance given Dose: 2.5mg X 6 days and 5 mg X 1 day F/U INR: 2 weeks Patient verbalizes understanding of instructions given Coding Level of Care Code Est Patient Level 1 Diagnoses Current use of anticoagulant therapy Z79.01 Results AMB INR Fingerstick AMB INR Fingerstick 2.0 Last Edit by Criselda Marshall, RN on 06/19/24 11:10 interface delay Assessment & Plan Assessment & Plan (1) Current use of anticoagulant therapy: Code(s): Z79.01 - senior living (current) use of anticoagulants Category: Medical
== END 2024-06-19 11:18 | disposition home or self-care (01) ==
LOC: HO.ACS 11:03
PROVIDERS: PCP Internal Medicine; Visit Provider Internal Medicine
DX: Z79.01 Long term (current) use of anticoagulants (principal)

== ENCOUNTER → 2024-06-19 11:03 | Outpatient (BNVA) | payer MEDICARE, SELFPAY | PROVIDERS: PCP Internal Medicine; Visit Provider Internal Medicine | DX: I48.0 Paroxysmal atrial fibrillation (principal); Z79.01 Long term (current) use of anticoagulants; Z51.81 Encounter for therapeutic drug level monitoring | CPT/HCPCS: 85610; 99211 ==

== ENCOUNTER 2024-07-03 11:15 | Outpatient (AMB) | payer MEDICARE, SELFPAY ==
[2024-07-03 11:21] LABS: Prothrombin Time Whole Bld POC 23.5 sec (11.1-13.5)
--- NOTE | 2024-07-03 11:26 | MHC.OFFVISCO ---
Intake Intake Visit Reasons: Anticoagulation Allergies memantine Allergy (Severe, Verified 07/03/24 11:16) RAGE nitrofurantoin Allergy (Intermediate, Verified 07/03/24 11:16) RASH oseltamivir [From Tamiflu] Allergy (Intermediate, Verified 07/03/24 11:16) RASH oxycodone [From PERCOCET] Allergy (Unknown, Verified 07/03/24 11:16) UNKNOWN Penicillins [PENICILLINS] Allergy (Unknown, Verified 07/03/24 11:16) UNKNOWN Sulfa (Sulfonamide Antibiotics) [SULFA (SULFONAMIDE ANTIBIOTICS)] Allergy (Unknown, Verified 07/03/24 11:16) UNKNOWN Medication List - Last Reconciled 07/03/24 by Criselda Marshall RN acetaminophen (Tylenol Extra Strength) 1,000 mg (2 x 500 mg) PO QID PRN albuterol sulfate 90 mcg/actuation 2 puffs inhalation Q4-6H PRN alendronate 70 mg PO QWEEK ascorbic acid (vitamin C) (Vitamin C) 500 mg PO TID azithromycin 500 mg PO ONCE PRN biotin 5,000 mcg PO DAILY calcium carbonate-vitamin D3 600 mg-12.5 mcg (500 unit) (Calcium 600 with Vitamin D3) calcium 1200, vit d 25mcg cetirizine 10 mg PO DAILY PRN cholecalciferol (vitamin D3) 250 McG DAILY PO; clotrimazole-betamethasone 1-0.05 % 1 appl topical BID cranberry fruit concentrate (Azo Cranberry) PO BID docusate sodium 100 mg PO BID estradiol 0.01%(0.1mg/gram) grams vaginal 2XW ezetimibe 10 mg PO DAILY fluticasone propion-salmeterol 500-50 mcg/dose (Advair Diskus) 1 inh inhalation BID inhalational spacing device ([facility]e [facility] spacer) As directed losartan 25 mg PO DAILY magnesium oxide 500 mg PO DAILY mecobalamin (vitamin B12) mcg PO DAILY methenamine hippurate 1 g PO BID metoprolol succinate ER 75 mg PO DAILY mirtazapine 7.5 mg PO BEDTIME tnslwrvd-she-npay-FA-vit K-lut (Multivitamin Women 50 Plus) PO psyllium husk (Metamucil) 0.4 grams PO DAILY Saccharomyces boulardii (Daily Probiotic (S. boulardii)) PO simethicone (Gas Relief (simethicone)) PO topiramate 50 mg PO DAILY vibegron (Gemtesa) 75 mg PO DAILY warfarin See Protocol 7.5mg x2days/ 5mg x5days; Nursing Note INR: 2.2 in therapeutic range of 2-3 Medications and supplements reviewed No changes in health, diet, medications, or supplements, Denies any signs and symptoms of bleeding or bruising or clotting. 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
== END 2024-07-03 11:28 | disposition home or self-care (01) ==
LOC: HO.ACS 11:15
PROVIDERS: PCP Internal Medicine; Visit Provider Internal Medicine
DX: Z79.01 Long term (current) use of anticoagulants (principal)

== ENCOUNTER → 2024-07-03 11:15 | Outpatient (BNVA) | payer MEDICARE, SELFPAY | PROVIDERS: PCP Internal Medicine; Visit Provider Internal Medicine | DX: I48.0 Paroxysmal atrial fibrillation (principal); Z79.01 Long term (current) use of anticoagulants; Z51.81 Encounter for therapeutic drug level monitoring | CPT/HCPCS: 85610; 99211 ==

== ENCOUNTER 2024-07-11 13:54 | Outpatient (AMB) | payer MEDICARE, SELFPAY ==
--- NOTE | 2024-07-11 14:05 | MHC.OFFVISCO ---
Intake Intake Visit Reasons: Anticoagulation Allergies memantine Allergy (Severe, Verified 07/11/24 14:01) RAGE nitrofurantoin Allergy (Intermediate, Verified 07/11/24 14:01) RASH oseltamivir [From Tamiflu] Allergy (Intermediate, Verified 07/11/24 14:01) RASH oxycodone [From PERCOCET] Allergy (Unknown, Verified 07/11/24 14:01) UNKNOWN Penicillins [PENICILLINS] Allergy (Unknown, Verified 07/11/24 14:01) UNKNOWN Sulfa (Sulfonamide Antibiotics) [SULFA (SULFONAMIDE ANTIBIOTICS)] Allergy (Unknown, Verified 07/11/24 14:01) UNKNOWN Medication List - Last Reconciled 07/11/24 by Petra Petersen RN acetaminophen (Tylenol Extra Strength) 1,000 mg (2 x 500 mg) PO QID PRN albuterol sulfate 90 mcg/actuation 2 puffs inhalation Q4-6H PRN alendronate 70 mg PO QWEEK ascorbic acid (vitamin C) (Vitamin C) 500 mg PO TID azithromycin 500 mg PO ONCE PRN biotin 5,000 mcg PO DAILY calcium carbonate-vitamin D3 600 mg-12.5 mcg (500 unit) (Calcium 600 with Vitamin D3) calcium 1200, vit d 25mcg cetirizine 10 mg PO DAILY PRN cholecalciferol (vitamin D3) 250 McG DAILY PO; clotrimazole-betamethasone 1-0.05 % 1 appl topical BID cranberry fruit concentrate (Azo Cranberry) PO BID docusate sodium 100 mg PO BID estradiol 0.01%(0.1mg/gram) grams vaginal 2XW ezetimibe 10 mg PO DAILY fluticasone propion-salmeterol 500-50 mcg/dose (Advair Diskus) 1 inh inhalation BID inhalational spacing device ([facility]e [facility] spacer) As directed losartan 25 mg PO DAILY magnesium oxide 500 mg PO DAILY mecobalamin (vitamin B12) mcg PO DAILY methenamine hippurate 1 g PO BID metoprolol succinate ER 75 mg PO DAILY mirtazapine 7.5 mg PO BEDTIME gnmtmbku-fuw-gliu-FA-vit K-lut (Multivitamin Women 50 Plus) PO psyllium husk (Metamucil) 0.4 grams PO DAILY Saccharomyces boulardii (Daily Probiotic (S. boulardii)) PO simethicone (Gas Relief (simethicone)) PO topiramate 50 mg PO DAILY vibegron (Gemtesa) 75 mg PO DAILY warfarin See Protocol 7.5mg x2days/ 5mg x5days; Nursing Note INR: 2.2- in therapeutic range of 2-3 Medications and supplements reviewed- no changes No changes in health, diet, medications, or supplements, Denies any signs and symptoms of bleeding or bruising or clotting. Bleeding, bruising, clotting discussed Nutritional guidance given Dose: 5mg x 3, 2.5mg x 4 F/U INR: 1 week Patient verbalizes understanding of instructions given pt to have dental extraction x 1 molar tomm at 1000, pt states no instructions to hold warfarin prior to proc poc inr faxed to [facility]- [phone], telephone [phone], the office is closed on wed Coding Level of Care Code Est Patient Level 1 Diagnoses Current use of anticoagulant therapy Z79.01 Assessment & Plan Assessment & Plan (1) Current use of anticoagulant therapy: Code(s): Z79.01 - alf (current) use of anticoagulants Category: Medical
[2024-07-11 14:07] LABS: Prothrombin Time Whole Bld POC 26.4 sec (11.1-13.5); ~PT, ~INR - Anti Coag Clinic 2.2 (0.9-1.1)
== END 2024-07-11 14:34 | disposition home or self-care (01) ==
LOC: HO.ACS 13:54
PROVIDERS: PCP Internal Medicine; Visit Provider Internal Medicine
DX: Z79.01 Long term (current) use of anticoagulants (principal)

== ENCOUNTER → 2024-07-11 13:54 | Outpatient (BNVA) | payer MEDICARE, SELFPAY | PROVIDERS: PCP Internal Medicine; Visit Provider Internal Medicine | DX: I48.0 Paroxysmal atrial fibrillation (principal); Z79.01 Long term (current) use of anticoagulants; Z51.81 Encounter for therapeutic drug level monitoring | CPT/HCPCS: 85610; 99211 ==

== ENCOUNTER 2024-07-18 13:10 | Outpatient (AMB) | payer MEDICARE, SELFPAY ==
[2024-07-18 13:19] LABS: Prothrombin Time Whole Bld POC 21.5 sec (11.1-13.5); ~PT, ~INR - Anti Coag Clinic 1.8 (0.9-1.1)
--- NOTE | 2024-07-18 13:23 | MHC.OFFVISCO ---
Intake Intake Visit Reasons: Anticoagulation Allergies memantine Allergy (Severe, Verified 07/18/24 13:11) RAGE nitrofurantoin Allergy (Intermediate, Verified 07/18/24 13:11) RASH oseltamivir [From Tamiflu] Allergy (Intermediate, Verified 07/18/24 13:11) RASH oxycodone [From PERCOCET] Allergy (Unknown, Verified 07/18/24 13:11) UNKNOWN Penicillins [PENICILLINS] Allergy (Unknown, Verified 07/18/24 13:11) UNKNOWN Sulfa (Sulfonamide Antibiotics) [SULFA (SULFONAMIDE ANTIBIOTICS)] Allergy (Unknown, Verified 07/18/24 13:11) UNKNOWN Medication List - Last Reconciled 07/18/24 by Criselda Shoemaker RN acetaminophen (Tylenol Extra Strength) 1,000 mg (2 x 500 mg) PO QID PRN albuterol sulfate 90 mcg/actuation 2 puffs inhalation Q4-6H PRN alendronate 70 mg PO QWEEK ascorbic acid (vitamin C) (Vitamin C) 500 mg PO TID azithromycin 500 mg PO ONCE PRN biotin 5,000 mcg PO DAILY calcium carbonate-vitamin D3 600 mg-12.5 mcg (500 unit) (Calcium 600 with Vitamin D3) calcium 1200, vit d 25mcg cetirizine 10 mg PO DAILY PRN cholecalciferol (vitamin D3) 250 McG DAILY PO; clotrimazole-betamethasone 1-0.05 % 1 appl topical BID cranberry fruit concentrate (Azo Cranberry) PO BID docusate sodium 100 mg PO BID estradiol 0.01%(0.1mg/gram) grams vaginal 2XW ezetimibe 10 mg PO DAILY fluticasone propion-salmeterol 500-50 mcg/dose (Advair Diskus) 1 inh inhalation BID inhalational spacing device ([facility] spacer) As directed losartan 25 mg PO DAILY magnesium oxide 500 mg PO DAILY mecobalamin (vitamin B12) mcg PO DAILY methenamine hippurate 1 g PO BID metoprolol succinate ER 75 mg PO DAILY mirtazapine 7.5 mg PO BEDTIME rzcisnxe-thr-jhjr-FA-vit K-lut (Multivitamin Women 50 Plus) PO psyllium husk (Metamucil) 0.4 grams PO DAILY Saccharomyces boulardii (Daily Probiotic (S. boulardii)) PO simethicone (Gas Relief (simethicone)) PO topiramate 50 mg PO DAILY vibegron (Gemtesa) 75 mg PO DAILY warfarin See Protocol 7.5mg x2days/ 5mg x5days; Nursing Note Amb to AC using cane, accompanied by spouse Medications and supplements reviewed, had tooth extraction on 07/12 noted small resolving bruised area right facial cheek, yellowish in color, sts she just noticed that today, same side as tooth extraction, denies pain No other changes in health, diet, medications, or supplements, Denies any other signs and symptoms of bleeding, bruising, clotting. Bleeding, bruising, clotting discussed. pt will monitor right cheek bruising to use cold comp today then warmth to promote circulation INR: 1.8 denies any missed doses, possible diet changes secondary to tooth extraction last week Dose: increase dose today to 7.5mg (vs 5mg) as INR 1.8 and pt has increased clotting risks then resume usual dosing tomorrow Nutrition Guidance: no greens x 2 days then resume healthy balanced diet F/U INR: 1 week Patient and verbalizes understanding of instructions given Coding Level of Care Code Est Patient Level 1 Diagnoses Current use of anticoagulant therapy Z79.01 Time Spent (min) 15 Assessment & Plan Assessment & Plan (1) Current use of anticoagulant therapy: Code(s): 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
== END 2024-07-18 13:33 | disposition home or self-care (01) ==
LOC: HO.ACS 13:10
PROVIDERS: PCP Internal Medicine; Visit Provider Internal Medicine
DX: Z79.01 Long term (current) use of anticoagulants (principal)

== ENCOUNTER → 2024-07-18 13:10 | Outpatient (BNVA) | payer MEDICARE, SELFPAY | PROVIDERS: PCP Internal Medicine; Visit Provider Internal Medicine | DX: I48.0 Paroxysmal atrial fibrillation (principal); Z79.01 Long term (current) use of anticoagulants; Z51.81 Encounter for therapeutic drug level monitoring | CPT/HCPCS: 85610; 99211 ==

== ENCOUNTER 2024-07-25 12:59 | Outpatient (AMB) | payer MEDICARE, SELFPAY ==
--- NOTE | 2024-07-25 13:06 | MHC.OFFVISCO ---
Intake Intake Visit Reasons: Anticoagulation Allergies memantine Allergy (Severe, Verified 07/25/24 13:01) RAGE nitrofurantoin Allergy (Intermediate, Verified 07/25/24 13:01) RASH oseltamivir [From Tamiflu] Allergy (Intermediate, Verified 07/25/24 13:01) RASH oxycodone [From PERCOCET] Allergy (Unknown, Verified 07/25/24 13:01) UNKNOWN Penicillins [PENICILLINS] Allergy (Unknown, Verified 07/25/24 13:01) UNKNOWN Sulfa (Sulfonamide Antibiotics) [SULFA (SULFONAMIDE ANTIBIOTICS)] Allergy (Unknown, Verified 07/25/24 13:01) UNKNOWN Medication List - Last Reconciled 07/25/24 by Petra Petersen RN acetaminophen (Tylenol Extra Strength) 1,000 mg (2 x 500 mg) PO QID PRN albuterol sulfate 90 mcg/actuation 2 puffs inhalation Q4-6H PRN alendronate 70 mg PO QWEEK ascorbic acid (vitamin C) (Vitamin C) 500 mg PO TID azithromycin 500 mg PO ONCE PRN biotin 5,000 mcg PO DAILY calcium carbonate-vitamin D3 600 mg-12.5 mcg (500 unit) (Calcium 600 with Vitamin D3) calcium 1200, vit d 25mcg cetirizine 10 mg PO DAILY PRN cholecalciferol (vitamin D3) 250 McG DAILY PO; clotrimazole-betamethasone 1-0.05 % 1 appl topical BID cranberry fruit concentrate (Azo Cranberry) PO BID docusate sodium 100 mg PO BID estradiol 0.01%(0.1mg/gram) grams vaginal 2XW ezetimibe 10 mg PO DAILY fluticasone propion-salmeterol 500-50 mcg/dose (Advair Diskus) 1 inh inhalation BID inhalational spacing device ([facility] R[facility]e [facility] spacer) As directed losartan 25 mg PO DAILY magnesium oxide 500 mg PO DAILY mecobalamin (vitamin B12) mcg PO DAILY methenamine hippurate 1 g PO BID metoprolol succinate ER 75 mg PO DAILY mirtazapine 7.5 mg PO BEDTIME cfdpvcxk-etg-yzhm-FA-vit K-lut (Multivitamin Women 50 Plus) PO psyllium husk (Metamucil) 0.4 grams PO DAILY Saccharomyces boulardii (Daily Probiotic (S. boulardii)) PO simethicone (Gas Relief (simethicone)) PO topiramate 50 mg PO DAILY vibegron (Gemtesa) 75 mg PO DAILY warfarin See Protocol 7.5mg x2days/ 5mg x5days; Nursing Note INR: 2.6- in therapeutic range of 2-3 Medications and supplements reviewed- no changes No changes in health, diet, medications, or supplements, Denies any signs and symptoms of bleeding or bruising or clotting. Bleeding, bruising, clotting discussed Nutritional guidance given Dose: 5mg x 3, 2.5mg x 4 F/U INR: 2 weeks Patient verbalizes understanding of instructions given pt s/p dental extraction 07/12/24. no c. o. Coding Level of Care Code Est Patient Level 1 Diagnoses Current use of anticoagulant therapy Z79.01 Results AMB INR Fingerstick AMB INR Fingerstick 2.6 Last Edit by Petra Petersen RN on 07/25/24 13:07 interface delay Assessment & Plan Assessment & Plan (1) Current use of anticoagulant therapy: Code(s): Z79.01 - skilled nursing (current) use of anticoagulants Category: Medical
[2024-07-25 13:08] LABS: Prothrombin Time Whole Bld POC 30.7 sec (11.1-13.5); ~PT, ~INR - Anti Coag Clinic 2.6 (0.9-1.1)
== END 2024-07-25 13:45 | disposition home or self-care (01) ==
LOC: HO.ACS 12:59
PROVIDERS: PCP Internal Medicine; Visit Provider Internal Medicine
DX: Z79.01 Long term (current) use of anticoagulants (principal)

== ENCOUNTER → 2024-07-25 12:59 | Outpatient (BNVA) | payer MEDICARE, SELFPAY | PROVIDERS: PCP Internal Medicine; Visit Provider Internal Medicine | DX: I48.0 Paroxysmal atrial fibrillation (principal); Z79.01 Long term (current) use of anticoagulants; Z51.81 Encounter for therapeutic drug level monitoring | CPT/HCPCS: 85610; 99211 ==

== ENCOUNTER 2024-08-08 11:30 | Outpatient (AMB) | payer MEDICARE, SELFPAY ==
--- NOTE | 2024-08-08 11:44 | MHC.OFFVISCO ---
Intake Intake Visit Reasons: Anticoagulation Allergies memantine Allergy (Severe, Verified 08/08/24 11:39) RAGE nitrofurantoin Allergy (Intermediate, Verified 08/08/24 11:39) RASH oseltamivir [From Tamiflu] Allergy (Intermediate, Verified 08/08/24 11:39) RASH oxycodone [From PERCOCET] Allergy (Unknown, Verified 08/08/24 11:39) UNKNOWN Penicillins [PENICILLINS] Allergy (Unknown, Verified 08/08/24 11:39) UNKNOWN Sulfa (Sulfonamide Antibiotics) [SULFA (SULFONAMIDE ANTIBIOTICS)] Allergy (Unknown, Verified 08/08/24 11:39) UNKNOWN Medication List - Last Reconciled 08/08/24 by Petra Petersen RN acetaminophen (Tylenol Extra Strength) 1,000 mg (2 x 500 mg) PO QID PRN albuterol sulfate 90 mcg/actuation 2 puffs inhalation Q4-6H PRN alendronate 70 mg PO QWEEK ascorbic acid (vitamin C) (Vitamin C) 500 mg PO TID azithromycin 500 mg PO ONCE PRN biotin 5,000 mcg PO DAILY calcium carbonate-vitamin D3 600 mg-12.5 mcg (500 unit) (Calcium with Vit D3) calcium 1200, vit d 25mcg cetirizine 10 mg PO DAILY PRN cholecalciferol (vitamin D3) 250 McG DAILY PO; clotrimazole-betamethasone 1-0.05 % 1 appl topical BID cranberry fruit concentrate (Azo Cranberry) PO BID docusate sodium 100 mg PO BID estradiol 0.01%(0.1mg/gram) grams vaginal 2XW ezetimibe 10 mg PO DAILY fluticasone propion-salmeterol 500-50 mcg/dose (Advair Diskus) 1 inh inhalation BID inhalational spacing device ([facility] spacer) As directed losartan 25 mg PO DAILY magnesium oxide 500 mg PO DAILY mecobalamin (vitamin B12) mcg PO DAILY methenamine hippurate 1 g PO BID metoprolol succinate ER 75 mg PO DAILY mirtazapine 7.5 mg PO BEDTIME anuotjuz-beb-fcfl-FA-vit K-lut (Multivitamin Women 50 Plus) PO psyllium husk (Metamucil) 0.4 grams PO DAILY Saccharomyces boulardii (Daily Probiotic (S. boulardii)) PO simethicone (Gas Relief (simethicone)) PO topiramate 50 mg PO DAILY vibegron (Gemtesa) 75 mg PO DAILY warfarin See Protocol 7.5mg x2days/ 5mg x5days; Nursing Note INR: 2.3- in therapeutic range of 2-3 Medications and supplements reviewed- no changes No changes in health, diet, medications, or supplements, Denies any signs and symptoms of bleeding or bruising or clotting. 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
[2024-08-08 11:45] LABS: Prothrombin Time Whole Bld POC 27.6 sec (11.1-13.5); ~PT, ~INR - Anti Coag Clinic 2.3 (0.9-1.1)
== END 2024-08-08 11:49 | disposition home or self-care (01) ==
LOC: HO.ACS 11:30
PROVIDERS: PCP Internal Medicine; Visit Provider Internal Medicine
DX: Z79.01 Long term (current) use of anticoagulants (principal)

== ENCOUNTER → 2024-08-08 11:30 | Outpatient (BNVA) | payer MEDICARE, SELFPAY | PROVIDERS: PCP Internal Medicine; Visit Provider Internal Medicine | DX: I48.0 Paroxysmal atrial fibrillation (principal); Z79.01 Long term (current) use of anticoagulants; Z51.81 Encounter for therapeutic drug level monitoring | CPT/HCPCS: 85610; 99211 ==

== ENCOUNTER 2024-08-23 11:25 | Outpatient (AMB) | payer MEDICARE, SELFPAY ==
[2024-08-23 11:33] LABS: ~PT, ~INR - Anti Coag Clinic 2.8 (0.9-1.1)
--- NOTE | 2024-08-23 11:39 | MHC.OFFVISCO ---
Intake Intake Visit Reasons: Anticoagulation Allergies memantine Allergy (Severe, Verified 08/23/24 11:29) RAGE nitrofurantoin Allergy (Intermediate, Verified 08/23/24 11:29) RASH oseltamivir [From Tamiflu] Allergy (Intermediate, Verified 08/23/24 11:29) RASH oxycodone [From PERCOCET] Allergy (Unknown, Verified 08/23/24 11:29) UNKNOWN Penicillins [PENICILLINS] Allergy (Unknown, Verified 08/23/24 11:29) UNKNOWN Sulfa (Sulfonamide Antibiotics) [SULFA (SULFONAMIDE ANTIBIOTICS)] Allergy (Unknown, Verified 08/23/24 11:29) UNKNOWN Medication List - Last Reconciled 08/23/24 by Criselda Marshall RN acetaminophen (Tylenol Extra Strength) 1,000 mg (2 x 500 mg) PO QID PRN albuterol sulfate 90 mcg/actuation 2 puffs inhalation Q4-6H PRN alendronate 70 mg PO QWEEK ascorbic acid (vitamin C) (Vitamin C) 500 mg PO TID azithromycin 500 mg PO ONCE PRN biotin 5,000 mcg PO DAILY calcium carbonate-vitamin D3 600 mg-12.5 mcg (500 unit) (Calcium with Vit D3) calcium 1200, vit d 25mcg cetirizine 10 mg PO DAILY PRN cholecalciferol (vitamin D3) 250 McG DAILY PO; clotrimazole-betamethasone 1-0.05 % 1 appl topical BID cranberry fruit concentrate (Azo Cranberry) PO BID docusate sodium 100 mg PO BID estradiol 0.01%(0.1mg/gram) grams vaginal 2XW ezetimibe 10 mg PO DAILY fluticasone propion-salmeterol 500-50 mcg/dose (Advair Diskus) 1 inh inhalation BID inhalational spacing device ([facility]e [facility] spacer) As directed losartan 25 mg PO DAILY magnesium oxide 500 mg PO DAILY mecobalamin (vitamin B12) mcg PO DAILY methenamine hippurate 1 g PO BID metoprolol succinate ER 75 mg PO DAILY mirtazapine 7.5 mg PO BEDTIME azxprjmz-dph-jjst-FA-vit K-lut (Multivitamin Women 50 Plus) PO psyllium husk (Metamucil) 0.4 grams PO DAILY Saccharomyces boulardii (Daily Probiotic (S. boulardii)) PO simethicone (Gas Relief (simethicone)) PO topiramate 50 mg PO DAILY vibegron (Gemtesa) 75 mg PO DAILY warfarin See Protocol 7.5mg x2days/ 5mg x5days; Nursing Note INR: 2.8 in therapeutic range of 2-3 Medications and supplements reviewed No changes in health, diet, medications, or supplements, Denies any signs and symptoms of bleeding or bruising or clotting. 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
== END 2024-08-23 11:41 | disposition home or self-care (01) ==
LOC: HO.ACS 11:25
PROVIDERS: PCP Internal Medicine; Visit Provider Internal Medicine
DX: Z79.01 Long term (current) use of anticoagulants (principal)

== ENCOUNTER → 2024-08-23 11:25 | Outpatient (BNVA) | payer MEDICARE, SELFPAY | PROVIDERS: PCP Internal Medicine; Visit Provider Internal Medicine | DX: I48.0 Paroxysmal atrial fibrillation (principal); Z79.01 Long term (current) use of anticoagulants; Z51.81 Encounter for therapeutic drug level monitoring | CPT/HCPCS: 85610; 99211 ==

== ENCOUNTER 2024-09-13 10:54 | Outpatient (AMB) | payer MEDICARE, SELFPAY ==
[2024-09-13 11:09] LABS: Prothrombin Time Whole Bld POC 28.8 sec (11.1-13.5); ~PT, ~INR - Anti Coag Clinic 2.4 (0.9-1.1)
--- NOTE | 2024-09-13 11:09 | MHC.OFFVISCO ---
Intake Intake Visit Reasons: Anticoagulation Allergies memantine Allergy (Severe, Verified 09/13/24 10:56) RAGE nitrofurantoin Allergy (Intermediate, Verified 09/13/24 10:56) RASH oseltamivir [From Tamiflu] Allergy (Intermediate, Verified 09/13/24 10:56) RASH oxycodone [From PERCOCET] Allergy (Unknown, Verified 09/13/24 10:56) UNKNOWN Penicillins [PENICILLINS] Allergy (Unknown, Verified 09/13/24 10:56) UNKNOWN Sulfa (Sulfonamide Antibiotics) [SULFA (SULFONAMIDE ANTIBIOTICS)] Allergy (Unknown, Verified 09/13/24 10:56) UNKNOWN Medication List - Last Reconciled 09/13/24 by Criselda Marshall RN acetaminophen (Tylenol Extra Strength) 1,000 mg (2 x 500 mg) PO QID PRN albuterol sulfate 90 mcg/actuation 2 puffs inhalation Q4-6H PRN alendronate 70 mg PO QWEEK ascorbic acid (vitamin C) (Vitamin C) 500 mg PO TID azithromycin 500 mg PO ONCE PRN biotin 5,000 mcg PO DAILY calcium carbonate-vitamin D3 600 mg-12.5 mcg (500 unit) (Calcium with Vit D3) calcium 1200, vit d 25mcg cetirizine 10 mg PO DAILY PRN cholecalciferol (vitamin D3) 250 McG DAILY PO; clotrimazole-betamethasone 1-0.05 % 1 appl topical BID cranberry fruit concentrate (Azo Cranberry) PO BID docusate sodium 100 mg PO BID estradiol 0.01%(0.1mg/gram) grams vaginal 2XW ezetimibe 10 mg PO DAILY fluticasone propion-salmeterol 500-50 mcg/dose (Advair Diskus) 1 inh inhalation BID inhalational spacing device ([facility] Rylee [facility] spacer) As directed losartan 25 mg PO DAILY magnesium oxide 500 mg PO DAILY mecobalamin (vitamin B12) mcg PO DAILY methenamine hippurate 1 g PO BID metoprolol succinate ER 75 mg PO DAILY mirtazapine 7.5 mg PO BEDTIME kzjcjdmd-mkx-obyu-FA-vit K-lut (Multivitamin Women 50 Plus) PO psyllium husk (Metamucil) 0.4 grams PO DAILY Saccharomyces boulardii (Daily Probiotic (S. boulardii)) PO simethicone (Gas Relief (simethicone)) PO topiramate 50 mg PO DAILY vibegron (Gemtesa) 75 mg PO DAILY warfarin See Protocol 7.5mg x2days/ 5mg x5days; Nursing Note INR: 2.4 in therapeutic range of 2-3 Medications and supplements reviewed No changes in health, diet, medications, or supplements, Denies any signs and symptoms of bleeding or bruising or clotting. 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
== END 2024-09-13 11:10 | disposition home or self-care (01) ==
LOC: HO.ACS 10:54
PROVIDERS: PCP Internal Medicine; Visit Provider Internal Medicine
DX: Z79.01 Long term (current) use of anticoagulants (principal)

== ENCOUNTER → 2024-09-13 10:54 | Outpatient (BNVA) | payer MEDICARE, SELFPAY | PROVIDERS: PCP Internal Medicine; Visit Provider Internal Medicine | DX: I48.0 Paroxysmal atrial fibrillation (principal); Z79.01 Long term (current) use of anticoagulants; Z51.81 Encounter for therapeutic drug level monitoring | CPT/HCPCS: 85610; 99211 ==

== ENCOUNTER → 2024-09-14 16:28 | Outpatient (BNVA) | payer MEDICARE, SELFPAY | PROVIDERS: PCP Internal Medicine; Visit Provider Internal Medicine ==

== ENCOUNTER 2024-11-02 10:54 | Outpatient (AMB) | payer MEDICARE, SELFPAY ==
[2024-11-02 11:03] LABS: Prothrombin Time Whole Bld POC 33.6 sec (11.1-13.5); ~PT, ~INR - Anti Coag Clinic 2.8 (0.9-1.1)
--- NOTE | 2024-11-02 11:07 | MHC.OFFVISCO ---
Intake Intake Visit Reasons: Anticoagulation Allergies memantine Allergy (Severe, Verified 11/02/24 10:59) RAGE nitrofurantoin Allergy (Intermediate, Verified 11/02/24 10:59) RASH oseltamivir [From Tamiflu] Allergy (Intermediate, Verified 11/02/24 10:59) RASH oxycodone [From PERCOCET] Allergy (Unknown, Verified 11/02/24 10:59) UNKNOWN Penicillins [PENICILLINS] Allergy (Unknown, Verified 11/02/24 10:59) UNKNOWN Sulfa (Sulfonamide Antibiotics) [SULFA (SULFONAMIDE ANTIBIOTICS)] Allergy (Unknown, Verified 11/02/24 10:59) UNKNOWN Medication List - Last Reconciled 11/02/24 by Criselda Marshall RN acetaminophen (Tylenol Extra Strength) 1,000 mg (2 x 500 mg) PO QID PRN albuterol sulfate 90 mcg/actuation 2 puffs inhalation Q4-6H PRN alendronate 70 mg PO QWEEK ascorbic acid (vitamin C) (Vitamin C) 500 mg PO TID azithromycin 500 mg PO ONCE PRN biotin 5,000 mcg PO DAILY calcium carbonate-vitamin D3 600 mg-12.5 mcg (500 unit) (Calcium with Vit D3) calcium 1200, vit d 25mcg cetirizine 10 mg PO DAILY PRN cholecalciferol (vitamin D3) 250 McG DAILY PO; clotrimazole-betamethasone 1-0.05 % 1 appl topical BID cranberry fruit concentrate (Azo Cranberry) PO BID docusate sodium 100 mg PO BID estradiol 0.01%(0.1mg/gram) grams vaginal 2XW ezetimibe 10 mg PO DAILY fluticasone propion-salmeterol 500-50 mcg/dose (Advair Diskus) 1 inh inhalation BID inhalational spacing device ([facility] spacer) As directed losartan 25 mg PO DAILY magnesium oxide 500 mg PO DAILY mecobalamin (vitamin B12) mcg PO DAILY methenamine hippurate 1 g PO BID metoprolol succinate ER 75 mg PO DAILY mirtazapine 7.5 mg PO BEDTIME ikcrbpiz-dol-iqds-FA-vit K-lut (Multivitamin Women 50 Plus) PO psyllium husk (Metamucil) 0.4 grams PO DAILY Saccharomyces boulardii (Daily Probiotic (S. boulardii)) PO simethicone (Gas Relief (simethicone)) PO topiramate 50 mg PO DAILY vibegron (Gemtesa) 75 mg PO DAILY warfarin See Protocol 7.5mg x2days/ 5mg x5days; Nursing Note INR: 2.8 in therapeutic range of 2-3 Medications and supplements reviewed No changes in health, diet, medications, or supplements, Denies any signs and symptoms of bleeding or bruising or clotting. 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
--- OUTSIDE RECORDS SUMMARY | 2024-11-02 11:58 | XMS_ITS | Encounter Summary ---
Author Organization [facility] Address [address] [place] [address] Care Team Providers Care Cash Posting Clerk Name Role Phone Unavailable Primary Care Provider Unavailabl e Encounter Details Date Type Department Care Team (Late st Contact Info) Description 07/27/2016 Scanned Document [facility] Cardiothoracic Surgery Julian [address] [facility] [address] [place] [address] Manny Lindo MD [address] [facility] [address] [place] [address] Social History Tobacco Use Types Packs/Day Years Used Date Smoking Tobacco: Never Assessed Sex and Gender Information Value Date Recorded Sex Assigned at Not on file Gender Identity Not on file Sexual Orientation Not on file documented as of this encounter Plan of Treatment Not on file documented as of this encounter Visit Diagnoses Not on filedocumented in this encounter Additional Health Concerns Infection Onset Date Last Indicated Resolved Time 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
--- OUTSIDE RECORDS SUMMARY | 2024-11-02 11:58 | XMS_ITS | Continuity of Care Document ---
Author Organization [facility] Address [address] [place] [address] [place] [address]- Care Team Providers Care Engine Test Cell Technician Name Role Phone Citlalli AZEVEDO, Harris Obrien Primary Care Physician Encounter [facility] [place] [facility] Date(s): 09/25/24 - 10/25/24 [facility] [address] [place] [address] Drive [address] [place], [place] [address] Encounter Type: Triage Allergies, Adverse Reactions, Alerts Substance Criticality Severity Reaction Reaction Severity Status penicillins hives Active sulfa drugs rash Active Macrobid Active Percocet 5/325 Activ e Tamiflu Active Medications acetaminophen 500 mg oral tablet 1 tablet = 500 mg, By Mouth, Every 4 hours, PRN for pain, # 60 tablet, 0 Refills, Maintenance, 08/25/18 11:59:24 PM EST, Tablet Start Date: 08/25/18 Status: Ordered Quantity: 60.0 Unit: tablet Repeat number: 1 Advair Diskus 100 mcg-50 mcg inhalation powder 1, puffs, Inhalation, 2 times a day, # 1 cartridge, Refills 0, Maintenance, 08/26/18 12:00:17 AM EST, Powder Start Date: 08/26/18 Status: Ordered Quantity: 1.0 Unit: cartridge Repeat number: 1 Advair Diskus 500 mcg-50 mcg inhalation powder 1, puffs, Inhalation, 2 times a day, # 1 cartridge, Refills 0, Maintenance, 10/04/18 10:07:59 AM EST, Powder Start Date: 10/04/18 Status: Ordered Quantity: 1.0 Unit: cartridge Repeat number: 1 alendronate 70 mg oral tablet 1 tablet = 70 mg, By Mouth, Every week, # 12 tablet, 0 Refills, Maintenance, 08/25/18 11:59:48 PM EST, Tablet Start Date: 08/25/18 Status: Ordered Quantity: 12.0 Unit: tablet Repeat number: 1 aspirin 81 mg oral delayed release tablet 81 mg, 1, tablet, By Mouth, Daily, # 30 tablet, Refills 0, Tot. Refills 0, Maintenance, 08/29/18 3:51:44 PM EST, Route to Pharmacy Electronically, [facility] 3 Start Date: 08/29/18 Stop Date: 09/28/18 Status: Ordered Quantity: 30.0 Unit: tablet Repeat number: 1 atorvastatin 40 mg oral tablet 1 tablet = 40 mg, By Mouth, Daily, # 30 tablet, 0 Refills, Maintenance, Tablet Start Date: 08/26/18 Status: Ordered Quantity: 30.0 Unit: tablet Repeat number: 1 azithromycin 500 mg oral tablet 1 tablet = 500 mg, By Mouth, PRN dental procedure, 0 Refills, Maintenance, 03/18/20 3:18:00 PM EDT Start Date: 03/18/20 Status: Ordered Repeat number: 1 B-Complex with B-12 1 tablet, By Mouth, Daily, 0 Refills, Maintenance, 08/26/18 12:04:48 AM EST Start Date: 08/26/18 Status: Ordered Repeat number: 1 Calcium 600 +D See Instructions, By Mouth, 0 Refills, Maintenance, 08/26/18 12:05:11 AM EST Start Date: 08/26/18 Status: Ordered Repeat number: 1 Central-Mc 1 tablet, By Mouth, Daily, 0 Refills, Maintenance, 08/26/18 12:04:55 AM EST Start Date: 08/26/18 Status: Ordered Repeat number: 1 cetirizine 10 mg oral capsule 1 capsule = 10 mg, By Mouth, Daily, 0 Refills, Maintenance, 03/18/20 3:16:00 PM EDT Start Date: 03/18/20 Status: Ordered Repeat number: 1 D-Mannose D-Mannose, Refills 0, Maintenance, 03/18/20 3:20:00 PM EDT, Supply Start Date: 03/18/20 Status: Ordered Repeat number: 1 docusate sodium 100 mg oral capsule 100 mg, 1, capsule, By Mouth, 2 times a day, hold if +diarrhea, # 60 capsule, Refills 0, Tot. Refills 0, Maintenance, 08/29/18 3:52:01 PM EST, Route to Pharmacy Electronically, [facility] Start Date: 08/29/18 Stop Date: 09/28/18 Status: Ordered Quantity: 60.0 Unit: capsule Repeat number: 1 estradiol 0.1 mg/g vaginal cream See Instructions, INSERT 1 GRAM VAGINALLY TWICE A WEEK AT BEDTIME, # 42.5 Gm, 2 Refills, Maintenance, 04/24/24 7:59:00 AM EDT, [facility]/pharmacy #[id number], 158, cm, 10/13/22 15:06:00 EST, Height Start Date: 04/24/24 Status: Ordered Quantity: 42.5 Unit: g Repeat number: 3 Flax Seed Oil oral capsule 0 Refills, Maintenance, 08/26/18 12:05:18 AM EST Start Date: 08/26/18 Status: Ordered Repeat number: 1 fosfomycin 3 g oral granule for reconstitution 1 each = 3 Gm, By Mouth, Once, # 1 pack/packet, 0 Refills, Soft Stop, 05/21/22 2:26:00 PM EDT, [facility]/pharmacy #[id number], Partial fill upon patient request if the prescription is for a schedule II opioid drug., 158, cm, 10/14/20 10:05:00 EST, Height, 56.8, kg, 07/07/20 13:15:00 EDT, Dry Weight Start Date: 05/21/22 Status: Ordered Quantity: 1.0 Unit: pack/packet Repeat number: 1 fosfomycin 3 g oral granule for reconstitution 1 each = 3 Gm, By Mouth, Once, # 1 each, 0 Refills, Soft Stop, 08/19/22 12:12:00 PM EST, [facility]/pharmacy #[id number], Partial fill upon patient request if the prescription is for a schedule II opioid drug., 158, cm, 10/14/20 10:05:00 EST, Height Start Date: 08/19/22 Status: Ordered Quantity: 1.0 Unit: each Repeat number: 1 fosfomycin 3 gm oral powder for reconstitution 1 pack/packet, By Mouth, Once, dissolve in water before taking, # 3 Gm, 0 Refills, Soft Stop, 08/04/21 4:26:00 PM EST, REC Powder, [facility]/pharmacy #[id number], Partial fill upon patient request if the prescription is for a schedule II opioid drug., 158, cm, 10/14/20 10:05:00 EST, Height, 56.8, kg, 07/07/20 1 3:15:00 EDT, Dry Weight Start Date: 08/04/21 Status: Ordered Quantity: 3.0 Unit: g Repeat number: 1 Gemtesa 75 mg oral tablet 1 tablet = 75 mg, By Mouth, Daily, # 30 tablet, 11 Refills, Maintenance, 05/15/24 2:36:00 PM EDT, [facility]/pharmacy #[id number], Partial fill upon patient request if the prescription is for a schedule II opioid drug., 158, cm, 10/13/22 15:06:00 EST, Height Start Date: 05/15/24 Status: Ordered Quantity: 30.0 Unit: tablet Repeat number: 12 levalbuterol 45 mcg/inh inhalation aerosol 1 puffs, Inhalation, Every 4 hours, # 15 Gm, 0 Refills, Maintenance, 10/04/18 10:08:32 AM EST, Aerosol Start Date: 10/04/18 Status: Ordered Quantity: 15.0 Unit: g Repeat number: 1 lisinopril 5 mg oral tablet 5 mg, 1, tablet, By Mouth, Daily, # 30 tablet, Refills 0, Maintenance, 08/26/18 12:01:16 AM EST Start Date: 08/26/18 Status: Ordered Quantity: 30.0 Unit: tablet Repeat number: 1 magnesium magnesium, Refills 0, Maintenance, 03/18/20 3:19:00 PM EDT, Supply Start Date: 03/18/20 Status: Ordered Repeat number: 1 magnesium salicylate 500 mg oral tablet 1 tablet = 580 mg, By Mouth, 4 times a day, 0 Refills, Maintenance, 03/18/20 3:17:00 PM EDT Start Date: 03/18/20 Status: Ordered Repeat number: 1 Melatonin Daily at bedtime, 0 Refills, Maintenance, 03/18/20 3:17:00 PM EDT Start Date: 03/18/20 Status: Ordered Repeat number: 1 methenamine hippurate 1 gm oral tablet 1 tablet, By Mouth, 2 times a day, # 60 tablet, 11 Refills, Maintenance, 09/04/24 2:29:00 PM EST, [facility]/pharmacy #[id number], 158, cm, 10/13/22 15:06:00 EST, Height Start Date: 09/04/24 Status: Ordered Quantity: 60.0 Unit: tablet Repeat number: 12 metoprolol 25 mg oral tablet 25 mg, 1, tablet, By Mouth, 2 times a day, use TARTRATE, # 60 tablet, Refills 0, Tot. Refills 0, Maintenance, 08/29/18 3:50:47 PM EST, Route to Pharmacy Electronically, [facility] 3 Start Date: 08/29/18 Stop Date: 09/28/18 Status: Ordered Quantity: 60.0 Unit: tablet Repeat number: 1 metoprolol 50 mg oral tablet 50 mg, 1, tablet, By Mouth, 2 times a day, Refills 0, Maintenance, 03/17/21 1:59:00 PM EDT, Partial fill upon patient request if the prescription is for a schedule II opioid drug. Start Date: 03/17/21 Status: Ordered Repeat number: 1 mirtazapine 7.5 mg oral tablet 2 tablet = 15 mg, By Mouth, Daily at bedtime, 0 Refills, Maintenance, 03/17/21 2:00:00 PM EDT, Partial fill upon patient request if the prescription is for a schedule II opioid drug. Start Date: 03/17/21 Status: Ordered Repeat number: 1 pantoprazole 40 mg oral delayed release tablet 1 tablet = 40 mg, By Mouth, Daily, # 30 tablet, 0 Refills, Maintenance, 08/26/18 12:01:39 AM EST, EC Tablet Start Date: 08/26/18 Status: Ordered Quantity: 30.0 Unit: tablet Repeat number: 1 predniSONE 1 mg oral tablet 3 tablet = 3 mg, By Mouth, Every other day, 0 Refills, Maintenance, 08/26/18 12:02:27 AM EST Start Date: 08/26/18 Status: Ordered Repeat number: 1 predniSONE 1 mg oral tablet 2 tablet = 2 mg, By Mouth, Every other day, 0 Refills, Maintenance, 08/26/18 12:08:46 AM EST Start Date: 08/26/18 Status: Ordered Repeat number: 1 ProAir HFA 90 mcg/inh inhalation aerosol 2 puffs, Inhalation, Every 6 hours, 0 Refills, Maintenance, 03/18/20 3:15:00 PM EDT Start Date: 03/18/20 Status: Ordered Repeat number: 1 topiramate 50 mg oral capsule, extended release 1 capsule = 50 mg, By Mouth, Daily, # 30 capsule, 0 Refills, Maintenance, 08/26/18 12:03:07 AM EST,ER Capsule Start Date: 08/26/18 Status: Ordered Quantity: 30.0 Unit: capsule Repeat number: 1 traMADol 50 mg oral tablet 1 tablet = 50 mg, By Mouth, Every 4 hours, 0 Refills, Maintenance, 08/26/18 12:03:19 AM EST Start Date: 08/26/18 Status: Ordered Repeat number: 1 Vitamin C 500 mg oral tablet 1 tablet = 500 mg, By Mouth, 2 times a day, # 60 tablet, 11 Refills, Maintenance, 09/04/24 2:29:00 PM EST, Tablet, [facility]/pharmacy #[id number], Partial fill upon patient request if the prescription is for a schedule II opioid drug., 158, cm, 10/13/22 15:06:00 EST, Height Start Date: 09/04/24 Status: Ordered Quantity: 60.0 Unit: tablet Repeat number: 12 Vitamin D3 oral tablet 1 tablet = 400 International_Units, By Mouth, Daily, # 30 tablet, 0 Refills, Maintenance, 08/26/18 12:03:44 AM EST, Tablet Start Date: 08/26/18 Status: Ordered Quantity: 30.0 Unit: tablet Repeat number: 1 warfarin 2.5 mg oral tablet 1 tablet = 2.5 mg, By Mouth, Daily, # 30 tablet, 3 Refills, Maintenance, 08/29/18 3:51:27 PM EST, Tablet, [facility] Start Date: 08/29/18 Stop Date: 12/27/18 Status: Ordered Quantity: 30.0 Unit: tablet Repeat number: 4 Problem List Condition Confirmation Course Effective Dates Status H ealth Status Informant Arthritis Confirmed Active Asthma Confirmed Active Atrial fibrillation Confirmed Active COPD - Chronic obstructive pulmonary disease Confirmed Active Dementia Confirmed Active GERD - Gastro-esophageal reflux disease Confirmed Active Hyperlipidemia Confirmed Active Hypertension Confirmed Active Injury of back of head Confirmed Active Myocardial infarction Confirmed Active Osteoarthritis Confirmed Active Osteoporosis Confirmed Active Stroke Confirmed Active Type B aortic dissection Confirmed Active Vital Signs Most recent to oldest [Reference Range]: 1 Height 158 cm (09/26/24 1:19 PM) Weight 59 kg (09/26/24 1:19 PM) Social History Social History Type Response Smoking Status Former smoker, quit more than 30 days ago entered on: 03/18/20 Sex Sex Representation Female (finding) Patient Care team information Care Team Personnel Name: Janey Rosales RN Position: S RN Member Role: Primary Care Nurse Name: Citlalli AZEVEDO, Harris Obrien Position: Reference Physician Member Role: PCP Address: [address] [place] [address] [address] [place] [address] Telecom: Care Team Related Persons Name: SYLVIE GARCIA Insurance Providers Guarantor name: CECIL JOSE Health Plan Information #: 1 Payer: MEDICARE PART B OUTPT Member Number: NA Policy Number: NA Group Number: NA Health Plan Information #: 2 Payer: MEDEX Member Number: NA Policy Number: NA Group Number: NA
--- OUTSIDE RECORDS SUMMARY | 2024-11-02 11:58 | XMS_ITS | Clinical Summary ---
Author Organization [facility] Address [address] [place] [address] Care Team Providers Care Hand I Thermal Cutter Name Role Phone Unavailable Primary Care Provider Unavailabl e Social History Tobacco Use Types Packs/Day Years Used Date Smoking Tobacco: Never Assessed Sex and Gender Information Value Date Recorded Sex Assigned at Not on file Gender Identity Not on file Sexual Orientation Not on file Plan of Treatment Health Maintenance Due Date Last Done Comments DTaP/Tdap/Td Vaccines (1 - Tdap) 1963 Pneumococcal Vaccines 50+ (1 of 1 - PCV) 1994 Zoster (Shingles) Vaccine (1 of 2) 1994 RSV Vaccine 60 years and old er and Patients (1 - 1-dose 75+ series) 2019 COVID-19 Vaccine ( - 2023-2 5 season) 2024 Hepatitis B Vaccines Aged Out No long er eligible based on patient's age to complete this topic Additional Health Concerns Infection Onset Date Last Indicated 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
== END 2024-11-02 11:08 | disposition home or self-care (01) ==
LOC: HO.ACS 10:54
PROVIDERS: PCP Internal Medicine; Visit Provider Internal Medicine
DX: Z79.01 Long term (current) use of anticoagulants (principal)

== ENCOUNTER → 2024-11-02 10:54 | Outpatient (BNVA) | payer MEDICARE, SELFPAY | PROVIDERS: PCP Internal Medicine; Visit Provider Internal Medicine | DX: I48.0 Paroxysmal atrial fibrillation (principal); Z79.01 Long term (current) use of anticoagulants; Z51.81 Encounter for therapeutic drug level monitoring | CPT/HCPCS: 85610; 99211 ==

== ENCOUNTER 2024-11-30 11:05 | Outpatient (AMB) | payer MEDICARE, SELFPAY ==
[2024-11-30 11:17] LABS: Prothrombin Time Whole Bld POC 23.7 sec (11.1-13.5)
--- NOTE | 2024-11-30 11:23 | MHC.OFFVISCO ---
Intake Intake Visit Reasons: Anticoagulation Allergies memantine Allergy (Severe, Verified 11/30/24 11:12) RAGE nitrofurantoin Allergy (Intermediate, Verified 11/30/24 11:12) RASH oseltamivir [From Tamiflu] Allergy (Intermediate, Verified 11/30/24 11:12) RASH oxycodone [From PERCOCET] Allergy (Unknown, Verified 11/30/24 11:12) UNKNOWN Penicillins [PENICILLINS] Allergy (Unknown, Verified 11/30/24 11:12) UNKNOWN Sulfa (Sulfonamide Antibiotics) [SULFA (SULFONAMIDE ANTIBIOTICS)] Allergy (Unknown, Verified 11/30/24 11:12) UNKNOWN Medication List - Last Reconciled 11/30/24 by Criselda Marshall RN acetaminophen (Tylenol Extra Strength) 1,000 mg (2 x 500 mg) PO QID PRN albuterol sulfate 90 mcg/actuation 2 puffs inhalation Q4-6H PRN alendronate 70 mg PO QWEEK ascorbic acid (vitamin C) (Vitamin C) 500 mg PO TID azithromycin 500 mg PO ONCE PRN biotin 5,000 mcg PO DAILY calcium carbonate-vitamin D3 600 mg-12.5 mcg (500 unit) (Calcium with Vit D3) calcium 1200, vit d 25mcg cetirizine 10 mg PO DAILY PRN cholecalciferol (vitamin D3) 250 McG DAILY PO; clotrimazole-betamethasone 1-0.05 % 1 appl topical BID cranberry fruit concentrate (Azo Cranberry) PO BID docusate sodium 100 mg PO BID estradiol 0.01%(0.1mg/gram) grams vaginal 2XW ezetimibe 10 mg PO DAILY fluticasone propion-salmeterol 500-50 mcg/dose (Advair Diskus) 1 inh inhalation BID inhalational spacing device ([facility]e [facility] spacer) As directed losartan 25 mg PO DAILY magnesium oxide 500 mg PO DAILY mecobalamin (vitamin B12) mcg PO DAILY methenamine hippurate 1 g PO BID metoprolol succinate ER 75 mg PO DAILY mirtazapine 7.5 mg PO BEDTIME qhzqxchg-umv-klvn-FA-vit K-lut (Multivitamin Women 50 Plus) PO psyllium husk (Metamucil) 0.4 grams PO DAILY Saccharomyces boulardii (Daily Probiotic (S. boulardii)) PO simethicone (Gas Relief (simethicone)) PO topiramate 50 mg PO DAILY vibegron (Gemtesa) 75 mg PO DAILY warfarin See Protocol 7.5mg x2days/ 5mg x5days; Nursing Note Pt to ACS accompanied by INR: 2.0 in therapeutic range of 2-3 states they had cabbage this week with corned beef for which could be the reason for the drop in INR. Medications and supplements reviewed No changes in health, diet, medications, or supplements, Denies any signs and symptoms of bleeding or bruising or clotting. Bleeding, bruising, clotting discussed Nutritional guidance given to avoid greens X 2 days and to focus on the foods that raise the INR. Food list reviewed. Dose: 2.5mg X 4 days and 5mg X 3 days F/U INR: 4 weeks Patient and verbalizes understanding of instructions given Coding Level of Care Code Est Patient Level 1 Diagnoses Current use of anticoagulant therapy Z79.01 Assessment & Plan Assessment & Plan (1) Current use of anticoagulant therapy: Code(s): Z79.01 - FDC (current) use of anticoagulants Category: Medical
--- OUTSIDE RECORDS SUMMARY | 2024-11-30 13:34 | XMS_ITS | Clinical Summary ---
Author Organization [facility] Address [address] [place] [address] Care Team Providers Care Negative Assembler Name Role Phone Unavailable Primary Care Provider [...]
--- OUTSIDE RECORDS SUMMARY | 2024-11-30 13:34 | XMS_ITS | Continuity of Care Document ---
Author Organization [facility] Address [address] [place] [address], [address] [place] [address]- Care Team Providers Care Handle Attacher Name Role Phone Citlalli AZEVEDO, Harris Obrien Primary Care Physician [phone] [id number] Date[facility]s): [facility]30[facility] - 11/29/24 [facility] [address] [facility], [address] [place], [place] [address] Encounter Type: Triage Allergies, Adverse Reactions, Alerts Substance Criticality Severity Reaction Reaction Severity Status penicillins hives Active sulfa drugs rash Active Macrobid Active Tamiflu Active Percocet 5/325 Activ e Medications acetaminophen 500 mg oral tablet 1 [...] 3:51:44 PM EST, Route to Pharmacy Electronically, [facility] 3 Start Date: 08/29/18 Stop Date: 09/28/18 [...] 3:52:01 PM EST, Route to Pharmacy Electronically, [facility] Start Date: 08/29/18 Stop Date: 09/28/18 Status: Ordered Quantity: 60.0 Unit: capsule Repeat number: 1 estradiol 0.1 mg/g vaginal cream See Instructions, INSERT 1 GRAM VAGINALLY TWICE A WEEK AT BEDTIME, # 42.5 Gm, 2 Refills, Maintenance, 04/24/24 7:59:00 AM EDT, [facility]/pharmacy #[id number], 158, cm, 10/13/22 15:06:00 EST, [...] Refills, Soft Stop, 05/21/22 2:26:00 PM EDT, [facility]/pharmacy #[id number], Partial fill upon patient request [...] Refills, Soft Stop, 08/19/22 12:12:00 PM EST, [facility]/pharmacy #[id number], Partial fill upon patient request [...] Stop, 08/04/21 4:26:00 PM EST, REC Powder, [facility]/pharmacy #[id number], Partial fill upon patient request if the prescription is for a schedule II opioid drug., 158, cm, 10/14/20 10:05:00 EST, Height, 56.8, kg, 07/07/20 1 3:15:00 EDT, Dry Weight Start Date: 08/04/21 Status: Ordered Quantity: 3.0 Unit: g Repeat number: 1 Gemtesa 75 mg oral tablet See Instructions, TAKE 1 TABLET BY MOUTH EVERY DAY, # 90 tablet, 3 Refills, Maintenance, 10/30/24 4:57:00 PM EST, [id number], 158, cm, 09/26/24 13:19:00 EST, Height Start Date: 10/30/24 Status: Ordered Quantity: 90.0 Unit: tablet Repeat number: 1 levalbuterol 45 mcg/inh inhalation aerosol 1 puffs, [...] 11 Refills, Maintenance, 09/04/24 2:29:00 PM EST, [facility]/pharmacy #[id number], 158, cm, 10/13/22 15:06:00 EST, Height Start Date: 09/04/24 Status: Ordered Quantity: 60.0 Unit: tablet Repeat number: 12 metoprolol 25 mg oral tablet 25 mg, 1, tablet, By Mouth, 2 times a day, use TARTRATE, # 60 tablet, Refills 0, Tot. Refills 0, Maintenance, 08/29/18 3:50:47 PM EST, Route to Pharmacy Electronically, [facility] 3 Start Date: 08/29/18 Stop Date: 09/28/18 [...] Maintenance, 03/18/20 3:15:00 PM EDT Start Date: 7/7/20 Status: Ordered Repeat number: 1 topiramate 50 [...] Refills, Maintenance, 09/04/24 2:29:00 PM EST, Tablet, [facility]/pharmacy #[id number], Partial fill upon patient request [...] Refills, Maintenance, 08/29/18 3:51:27 PM EST, Tablet, [facility] 3 Start Date: 08/29/18 Stop Date: 12/27/18 [...] Active Type B aortic dissection Confirmed Active Social History Social History Type Response Smoking Status Former smoker, quit more than 30 days ago entered on: 03/18/20 Sex Sex Representation Female (finding) Patient Care team information Care Team Personnel Name: Janey Rosales RN Position: CAESAR RN Member Role: Primary Care Nurse Name: Citlalli AZEVEDO, Harris Obrien Position: Reference Physician Member Role: PCP Address: [address] [place] [address] [address] Telecom: Care Team Related Persons Name: SYLVIE GARCIA Insurance Providers Guarantor name: CECIL JOSE Health Plan Information #: 1 Payer: MEDICARE PART B OUTPT Member Number: NA Policy Number: NA Group Number: NA Health Plan Information #: 2 Payer: MEDEX Member Number: NA Policy Number: NA Group Number: NA
--- OUTSIDE RECORDS SUMMARY | 2024-11-30 13:34 | XMS_ITS | Encounter Summary ---
Author Organization [facility] Address [address] [place] [address] Care Team Providers Care Change Person Name Role Phone Unavailable Primary Care Provider Unavailabl e Encounter Details Date Type Department Care Team (Late st Contact Info) Description 07/27/2016 Scanned Document [facility] Cardiothoracic Surgery [place] [address] [facility] [address] [place] [address] Manny Lindo MD [address] [place] [address] Social History Tobacco Use Types Packs/Day Years [...]
== END 2024-11-30 11:28 | disposition home or self-care (01) ==
LOC: HO.ACS 11:05
PROVIDERS: PCP Internal Medicine; Visit Provider Internal Medicine Medical Oncology
DX: Z79.01 Long term (current) use of anticoagulants (principal)

== ENCOUNTER → 2024-11-30 11:05 | Outpatient (BNVA) | payer MEDICARE, SELFPAY | PROVIDERS: PCP Internal Medicine; Visit Provider Internal Medicine Medical Oncology | DX: I48.0 Paroxysmal atrial fibrillation (principal); Z79.01 Long term (current) use of anticoagulants; Z51.81 Encounter for therapeutic drug level monitoring | CPT/HCPCS: 85610; 99211 ==

== ENCOUNTER 2024-12-17 11:05 | Outpatient (AMB) | payer MEDICARE, SELFPAY ==
[2024-12-17 11:13] LABS: Prothrombin Time Whole Bld POC 27.5 sec (11.1-13.5); ~PT, ~INR - Anti Coag Clinic 2.3 (0.9-1.1)
--- NOTE | 2024-12-17 11:19 | MHC.OFFVISCO ---
Intake Intake Visit Reasons: Anticoagulation Allergies memantine Allergy (Severe, Verified 12/17/24 11:07) RAGE nitrofurantoin Allergy (Intermediate, Verified 12/17/24 11:07) RASH oseltamivir [From Tamiflu] Allergy (Intermediate, Verified 12/17/24 11:07) RASH oxycodone [From PERCOCET] Allergy (Unknown, Verified 12/17/24 11:07) UNKNOWN Penicillins [PENICILLINS] Allergy (Unknown, Verified 12/17/24 11:07) UNKNOWN Sulfa (Sulfonamide Antibiotics) [SULFA (SULFONAMIDE ANTIBIOTICS)] Allergy (Unknown, Verified 12/17/24 11:07) UNKNOWN Medication List - Last Reconciled 12/17/24 by Criselda Marshall RN acetaminophen (Tylenol Extra Strength) 1,000 mg (2 x 500 mg) PO QID PRN albuterol sulfate 90 mcg/actuation 2 puffs inhalation Q4-6H PRN alendronate 70 mg PO QWEEK ascorbic acid (vitamin C) (Vitamin C) 500 mg PO TID azithromycin 500 mg PO ONCE PRN biotin 5,000 mcg PO DAILY calcium carbonate-vitamin D3 600 mg-12.5 mcg (500 unit) (Calcium with Vit D3) calcium 1200, vit d 25mcg cetirizine 10 mg PO DAILY PRN cholecalciferol (vitamin D3) 250 McG DAILY PO; clotrimazole-betamethasone 1-0.05 % 1 appl topical BID cranberry fruit concentrate (Azo Cranberry) PO BID docusate sodium 100 mg PO BID estradiol 0.01%(0.1mg/gram) grams vaginal 2XW ezetimibe 10 mg PO DAILY fluticasone propion-salmeterol 500-50 mcg/dose (Advair Diskus) 1 inh inhalation BID inhalational spacing device ([facility] Rylee [facility] spacer) As directed losartan 25 mg PO DAILY magnesium oxide 500 mg PO DAILY mecobalamin (vitamin B12) mcg PO DAILY methenamine hippurate 1 g PO BID metoprolol succinate ER 75 mg PO DAILY mirtazapine 7.5 mg PO BEDTIME iehjmlqc-tfy-kuwv-FA-vit K-lut (Multivitamin Women 50 Plus) PO psyllium husk (Metamucil) 0.4 grams PO DAILY Saccharomyces boulardii (Daily Probiotic (S. boulardii)) PO simethicone (Gas Relief (simethicone)) PO topiramate 50 mg PO DAILY vibegron (Gemtesa) 75 mg PO DAILY warfarin See Protocol 7.5mg x2days/ 5mg x5days; Nursing Note Pt to ACS with use of cane accompanied by her . Pt finished a course of antibiotics last week for a gum infection. She was on azithromycin. INR: 2.3 in therapeutic range of 2-3 Medications and supplements reviewed No changes in health, diet, medications, or supplements, Denies any signs and symptoms of bleeding or bruising or clotting. Bleeding, bruising, clotting discussed Nutritional guidance given Dose: 2.5mg X 4 days and 5mg X 3 days (M/W/F) F/U INR: 1 week Patient verbalizes understanding of instructions given Coding Level of Care Code Est Patient Level 1 Diagnoses Current use of anticoagulant therapy Z79.01 Results AMB INR Fingerstick AMB INR Fingerstick 2.3 Last Edit by Criselda Marshall RN on 12/17/24 11:14 interface delay Assessment & Plan Assessment & Plan (1) Current use of anticoagulant therapy: Code(s): Z79.01 - terminal block assembler (current) use of anticoagulants Category: Medical
--- OUTSIDE RECORDS SUMMARY | 2024-12-17 13:15 | XMS_ITS | Data Portability ---
Author Organization [place] [facility] Address [address] [place] [address] Care Team Providers Care Departmental Secretary Name Role Phone ESTRADAIVETTE Primary Care Provider [phone] Assessment Encounter Date Assessment Date Assessment LastModified by Organization Details LastModified Time 08/19/2020 08/19/2020 Overview/History : 74-year-old female with past medical history significant for asthma, COPD, depression, dementia, hyperlipidemia, hypertension, history of PE and TIA, aortic dissection status post repair and aortic valve replacement, PAF on coumadin, and osteoporosis, [facility], who presents with complaints of tick bite. Patient states about 1 week ago she noticed a bulls eye rash on her left forearm. It was more swollen red and hot but now improving a little. At first she thought it was ringworm but then her daughter said she thought it was a tick bite. She did find a tick on her arm 2-3 weeks ago when she was taking care of her granddaughters puppy. She states that she was able to take the whole takeoff but does not know how long it was attached. She denies any headache, joint pain or swelling, numbness or tingling. She states she has a similar rash on her left elbow. She also tested positive for COVID 2 weeks ago but denies any symptoms at this time. Exam: afebrile, RRR, mildly hypertensive, normal resps, O2 sat 99% on RA, non-toxic, well appearing. GENERAL: well developed, well nourished, appears stated age, sitting comfortably in no acute distress. HEENT: normocephalic, atraumatic, PERRL, EOMI, sclera anicteric, no conjunctival injection, nares patent, mmm. RESP: normal I:E, clear to auscultation bilaterally, no wheezes, rhonchi, or rales. CARDIO: RRR, normal S1, S2, radial pulse 2+. MUSK: normal strength, ROM, muscle tone, no atrophy. EXTREMITIES: warm, well perfused, no swelling or cyanosis. NEURO: awake, alert, oriented x3, no focal neuro deficits, moving all extremities spontaneously, normal gait. SKIN: 2 three cm erythema migrans on dorsal left forearm and lateral left elbow, skin intact, good turgor, no cyanosis, pallor, abrasions, or lacerations. DDx considered, but not limited to: lyme - most likely, pt reports tick and EM lesions on exam other tickborne illness - possible ecchymosis - less likely given bullseye pattern erythema multiforme - less likely given distribution and # of lesions cellulitis - unlikely, afebrile, no calor or purulence Work up/Results: lyme AB reflex WB and NE tick panel pending. Plan/Discussion: [facility]. You likely have a tick bite and early lyme disease. We tested your blood for lyme and northeast tick borne diseases, we will call you with the results. I am going to start you on Doxycycline 100 mg twice a day x21 days for likely early disseminated lyme disease given 2 erythema migrans lesions. Make sure you take the whole course of antibiotic so you do not develop complications from lyme disease. Also make sure to alert your coumadin clinic that you are on an antibiotic and will need your INR checked more frequently. Recommend having it checked 2 days after starting antibiotic. Follow up with your PCP in 3-5 days. Thank you for your visit with [facility] today. We cannot always find the exact cause of your symptoms during your initial visit. Please follow up with your primary care provider or specialist to be rechecked or seek medical attention if your symptoms do not go away or get worse. If you develop any new or worsening symptoms and need after hours care, please go to nearest ER and/or call 911. If you have additional concerns or develop a change in your condition between 8am-10pm, please call [facility] at [phone] to help navigate your care. Time On Scene with Patient: 00:51:41 [email or web address] Not available 08/19/2020 12:31:00 Plan of Treatment Reminders Order Date Submit Date Provider Last Modified By Organization Details Last Modified Time Details Appointments None recorded. Lab lyme disease Ab, total, serum 2019 HIRAM [facility] (Centralized Electronic Ordering - All Locations), Patient Can Go To The Location Of Their Choice, [id number] 0 16:27:56 tick-borne disease panel 2019 [email or web address] [facility] (Centralized Electronic Ordering - All Locations), Patient Can Go To The Location Of Their Choice, [id number] 1 13:50:37 Referral None recorded. Procedures None recorded. Surgeries None recorded. Imaging None recorded. Medication Orders doxycycline hyclate 100 mg capsule 2019 simeon [id number], [address] [facility], [place], [address], 0 12:12:53 Patient TargetsNo targets recorded. Patient Instructions Encounter Date Encounter Id Patient Instructions Last Modified By Organization Details Last Modified Time 08/19/2020 [id number] [facility]. You likely have a tick bite and early lyme disease. We tested your blood for lyme and northeast tick borne diseases, we will call you with the results. I am going to start you on Doxycycline 100 mg twice a day x21 days. Make sure you take the whole course of antibiotic so you do not develop complications from lyme disease. Also make sure to alert your coumadin clinic that you are on an antibiotic and will need your INR checked more frequently. Recommend having it checked 2 days after starting antibiotic. Follow up with your PCP in 3-5 days. Thank you for your visit with [facility] today. We cannot always find the exact cause of your symptoms during your initial visit. Please follow up with your primary care provider or specialist to be rechecked or seek medical attention if your symptoms do not go away or get worse. If you develop any new or worsening symptoms and need after hours care, please go to nearest ER and/or call 911. If you have additional concerns or develop a change in your condition between 8am-10pm, please call [facility] at [phone] to help navigate your care. simeon Not available 08/19/2020 11:50:31 Reason for Referral None Reported. Results Created Date Observation Date Name Description Value Unit Range Abnormal Flag Note LastModifiedBy Organization Detail LastModifiedTime 08/19/20 20 08/21/2020 lyme disea se Ab, total , serum lyme Ab w/reflex <0.91 Refer ence range : 0.00 to 0.90 Unit: ISR (NOTE ) Negat kareen <0.91 Equiv ocal 0.91 - 1.09 Posit kareen >1.09 TEST PERFO RMED BY [facility], [place], [place] Not Available [facility] (Centralized Electronic Ordering - All Locations) Patient Can Go To The Location Of Their Choice, [id number] 08/21/2020 16:27:56 Result Notes None recorded. Problems Name Problem SNOMED Code Status Onset Date Resolution Date Notes Provider Name and Address Organization Details Recorded Time Dementia 33992836 Active 020 CECI VERA [address] [facility] [place], [address] , [place] [facility] 0 11:23:51 Problem Notes None recorded. Procedures Surgical History Date Name Laterality Status Provider Name and Address Organization Details Recorded Time 08/19/20 20 Venipuncture - DH completed CECI VERA [address], [place], [address], [place] [facility] 08/19/2020 12:21:11 Imaging Results None recorded. Procedure Notes None recorded. Medical Equipment None Reported. Allergies Allergen ID Allergen Name Allergen Category Reaction Reaction Severity Criticality Documentation Date Start Date Code Code System Note Provider Name and Address Organization Details Recorded Time [id number] Substance with sulfonami de structure and antibacte rial mechanism of action (substanc e) medicatio n Not available Not available Not available 08/19/2020 27142 8003 SNOMED CECI VERA [address] [place], [address], [place] [facility] 0 11:22:26 [id number] Product containin g penicilli n (product) medicatio n Not available Not available Not available 08/19/2020 75564 8001 SNOMED CECI VERA [address] [place], [address], [place] [facility] 0 11:22:41 [id number] acetamino phen / oxycodone medicatio n Not available Not available Not available 08/19/2020 26880 3 RxNorm CECI VERA [address], [place], [address], [place] [facility] 0 11:22:51 [id number] nitrofura ntoin medicatio n Not available Not available Not available 08/19/2020 7454 RxNorm CECI VERA [address], [place], [address], [place] [facility] 0 11:23:05 [id number] Tamiflu medicatio n Not available Not available Not available 08/19/2020 38631 7 RxNorm CECI VERA [address], [place], [address], [place] [facility] 0 11:23:13 [id number] memantine medicatio n Not available Not available Not available 08/19/2020 6719 RxNorm CECI VERA [address], [place], [address], [place] [facility] 0 11:23:26 Medications Name Sig Start Date Stop Date Status Note LastModified by Organization Details LastModified Time fluconazole 100 mg tablet TAKE 1 TABLET BY MOUTH EVERY DAY FOR 10 DAYS 08/19 completed Not Available Not Available Not Available atorvastati n 40 mg tablet TAKE 1 TABLET BY MOUTH EVERY DAY active Not Available Not Available No t Available doxycycline hyclate 100 mg capsule TAKE 1 CAPSULE(S ) TWICE A DAY BY ORAL ROUTE WITH MEALS FOR 21 DAYS. active Not Available Not Available No t Available cetirizine 10 mg tablet TAKE 1 TABLET BY MOUTH EVERY DAY active Not Available Not Available No t Available azithromyci n 250 mg tablet TAKE 2 TABLETS BY MOUTH TODAY, THEN TAKE 1 TABLET DAILY FOR 4 DAYS active Not Available Not Available No t Available metoprolol succinate ER 50 mg tablet,exte nded release 24 hr active Not Available Not Available Not Available alendronate 70 mg tablet 1 TAB EVERY 7 DAYS W/FULL GLASS WATER 30 MINS BEFORE FIRST FOOD/DRIN K/MED.DON T LIE DOWN FOR 30 MINS 08/19 completed Not Available Not Available Not Available warfarin 2.5 mg tablet TAKE 1 TAB DAILY ON TUESDAY,, TUE & TUE. TAKE 2 TABS ON TUESDAY AND 3 TABS ON TUESDAY active Not Available Not Available No t Available ciprofloxac in 500 mg tablet TAKE 1 TABLET BY MOUTH EVERY 12 HOURS,X3 DAYS 08/19 completed Not Available Not Available Not Available cephalexin 500 mg capsule TAKE 1 CAPSULE (500 MG TOTAL) BY MOUTH 2 (TWO) TIMES A DAY FOR 5 DAYS. 08/19 completed Not Available Not Available Not Available pantoprazol e 40 mg tablet,mary beth yed release TAKE 1 TABLET BY MOUTH EVERY DAY active Not Available Not Available No t Available clotrimazol e-betametha sone 1 %-0.05 % topical cream APPLY TO AFFECTED AREA TWICE A DAY FOR 7 DAYS active Not Available Not Available No t Available Advair Diskus 500 mcg-50 mcg/dose powder for inhalation INHALE 1 PUFF BY MOUTH TWICE A DAY active Not Available Not Available No t Available metoprolol succinate ER 25 mg tablet,exte nded release 24 hr TAKE 3 TABLETS BY MOUTH DAILY active Not Available Not Available No t Available estradiol 0.01% (0.1 mg/gram) vaginal cream INSERT 1 GM VAGINALLY DAILY AT BEDTIME,I NSTR TAKE EVERY NIGHT FOR TWO WEEKS THEN TWICE WEEKLY active Not Available Not Available No t Available albuterol sulfate HFA 90 mcg/actuati on aerosol inhaler INHALE 2 PUFFS INTO THE LUNGS EVERY 4 HOURS NEEDED FOR WHEEZING OR SHORTNESS OF BREATH/DY SPNEA. active Not Available Not Available No t Available topiramate 50 mg tablet TAKE 1 TABLET BY MOUTH EVERY DAY active Not Available Not Available No t Available nitrofurant oin monohydrate /macrocryst als 100 mg capsule TAKE 1 CAPSULE BY MOUTH TWICE A DAY FOR 5 DAYS 08/19 completed Not Available Not Available Not Available duloxetine 30 mg capsule,del ayed release TAKE 1 CAPSULE BY MOUTH EVERY DAY 08/19 completed Not Available Not Available Not Available aspirin active Not Available Not Avail able Not Available Fluzone High-Dose Quad (PF) 240 mcg/0.7 mL IM syringe TO BE ADMINISTE RED BY PHARMACIS T FOR IMMUNIZAT ION active Not Available Not Available No t Available Vitals Date Recorded Heart rate Body temperature Respiratory rate Oxygen saturation Oxygen saturation in Arterial blood by Pulse oximetry Heart rate Systolic blood pressure Diastolic blood pressure Provider Name and Address Organization Details Last Updated DateTime 0 64 /min 97.6 [degF] 18 /min 99 % 99 % 62 /min 130 mm[Hg] 68 mm[Hg] Not Available [facility] 0 11:27:27 Social History Question Answer Notes LastModified by Organizat ion Details LastModified Time Tobacco Smoking Status Former Smoker CECI VERA [address], [place], [address], [place] - [facility] 08/19/2020 11:29:43 Do You Have An Advance Directive? Yes [employer] Information not available 08/19/2020 What Is Your Code Status? DNR Information not available 08/19/2020 Within The Past 12 Months, Has It Happened That The Food You Bought Just Didn't Last And You Didn't Have Money To Get More. No [employer] Information not available 08/19/2020 Within The Past 12 Months, Have You Worried That Your Food Would Run Out Before You Got Money To Buy More. No [employer] Information not available 08/19/2020 Fall Risk: Do You Feel Unsteady When Standing Or Walking? No [employer] Information not available 08/19/2020 We Know That How And When People Interact With Friends And Family Can Be Very Different From Person To Person. How Often Do You Have The Opportunity To See Or Talk To People That You Care About And Feel Close To? (Ex: Talking To Friends On The Phone Or Visiting Friends Or Family Or Going To [employer] Or Club Meetings) 5 Or More Times Per Week badWhyvilleki Information not available 08/19/2020 Excessive Alcohol Or Drug Use No [employer] Information not available 08/19/2020 We Know From Many Of Our Patients That Covering All Of Their Costs Can Be Difficult At Times. This Can Cause Stress And Impact Health. In The Past Year, Have You Been Unable To Get Any Of The Following When It Was Really Needed? No [employer] Information not available 08/19/2020 What Is Your Housing Situation Today? I Have Housing Information not available 08/19/2020 Would You Like Help Connecting To Resources? None Information not available 08/19/2020 How Many Years Have You Smoked Tobacco? 10 Information not available 08/19/2020 Sex: Unknown Functional Status None recorded. Mental Status None recorded. Family History Relationship Description Onset Age of this Age Resolved Age Notes LastModified by Organization Details LastModified Time Mother Coronary arterioscler osis simeon Not available 2019 11:30:39 Father Cerebrovascu lar accident simeon Not available 04/2020 11:30:50 Medical History Condition Response Diabetes N Coronary Artery Disease N Cancer N Stroke Y Asthma Y COPD Y Depression Y High Cholesterol Y Pulmonary Embolism Y Hypertension Y Kidney Disease N Gynecological HistoryNo gynecological history recorded. Obstetrics History GPAL:G 0 P 0 0 0 0 Past Encounters Encounter ID Performer Location Encounter Start Date Encounter Closed Date Diagnosis/Indication Diagnosis SNOMED-CT Code Diagnosis ICD10 Code Diagnosis Note [id number] CECI VERA [facility] [address] [place] [address] 08/19/2020 11:12:55 08/19/2020 19:09:01 Lyme disease [id number] A69.20 Health Concerns Section Related Observation LastModified by Organization Detai ls LastModified Time None Recorded Concern Status LastModified by Organization Details LastModified Time None Recorded Advance Directives Directive Y: Payers Encounter Date Sequence Insurance Name Policy Number Policy Cottrell Covered Member ID Cottrell Member ID Guarantor Name 08/19/2020 1 [place] [employer] Lindsey José [id number] Lindsey José 08/19/2020 2 [place] [id number] Lindsey José [id number] Lindsey José Notes Date Note Type Note Provider Name and Address Organization Details Recorded Time 08/19/2020 text/html 74-year-old fema yakelin with past medical history significant for asthma, COPD, depression, dementia, hyperlipidemia, hypertension, history of PE and TIA, aortic dissection status post repair and aortic valve replacement, PAF on coumadin, and osteoporosis, [facility], who presents with complaints of tick bite. Patient states about 1 week ago she noticed a bulls eye rash on her left forearm. It was more swollen red and hot but now improving a little. At first she thought it was ringworm but then her daughter said she thought it was a tick bite. She did find a tick on her arm 2-3 weeks ago when she was taking care of her granddaughters puppy. She states that she was able to take the whole takeoff but does not know how long it was attached. She denies any headache, joint pain or swelling, numbness or tingling. She states she has a similar rash on her left elbow. She also tested positive for COVID 2 weeks ago but denies any symptoms at this time. CECI VERA [facility] [place], [address], [place] [facility] 08/19/2020 12:31:09 OBGyn Episode No OBEpisode recorded.
== END 2024-12-17 11:24 | disposition home or self-care (01) ==
LOC: HO.ACS 11:05
PROVIDERS: PCP Internal Medicine; Visit Provider Internal Medicine Medical Oncology
DX: Z79.01 Long term (current) use of anticoagulants (principal)

== ENCOUNTER → 2024-12-17 11:05 | Outpatient (BNVA) | payer MEDICARE, SELFPAY | PROVIDERS: PCP Internal Medicine; Visit Provider Internal Medicine Medical Oncology | DX: I48.0 Paroxysmal atrial fibrillation (principal); Z51.81 Encounter for therapeutic drug level monitoring; Z79.01 Long term (current) use of anticoagulants | CPT/HCPCS: 85610; 99211 ==

== ENCOUNTER 2024-12-25 10:53 | Outpatient (AMB) | payer MEDICARE, SELFPAY ==
[2024-12-25 11:02] LABS: Prothrombin Time Whole Bld POC 32.9 sec (11.1-13.5); ~PT, ~INR - Anti Coag Clinic 2.7 (0.9-1.1)
--- NOTE | 2024-12-25 11:05 | MHC.OFFVISCO ---
Intake Intake Visit Reasons: Anticoagulation Allergies memantine Allergy (Severe, Verified 12/25/24 10:57) RAGE nitrofurantoin Allergy (Intermediate, Verified 12/25/24 10:57) RASH oseltamivir [From Tamiflu] Allergy (Intermediate, Verified 12/25/24 10:57) RASH oxycodone [From PERCOCET] Allergy (Unknown, Verified 12/25/24 10:57) UNKNOWN Penicillins [PENICILLINS] Allergy (Unknown, Verified 12/25/24 10:57) UNKNOWN Sulfa (Sulfonamide Antibiotics) [SULFA (SULFONAMIDE ANTIBIOTICS)] Allergy (Unknown, Verified 12/25/24 10:57) UNKNOWN Medication List - Last Reconciled 12/25/24 by Criselda Marshall RN acetaminophen (Tylenol Extra Strength) 1,000 mg (2 x 500 mg) PO QID PRN albuterol sulfate 90 mcg/actuation 2 puffs inhalation Q4-6H PRN alendronate 70 mg PO QWEEK ascorbic acid (vitamin C) (Vitamin C) 500 mg PO TID azithromycin 500 mg PO ONCE PRN biotin 5,000 mcg PO DAILY calcium carbonate-vitamin D3 600 mg-12.5 mcg (500 unit) (Calcium with Vit D3) calcium 1200, vit d 25mcg cetirizine 10 mg PO DAILY PRN cholecalciferol (vitamin D3) 250 McG DAILY PO; clotrimazole-betamethasone 1-0.05 % 1 appl topical BID cranberry fruit concentrate (Azo Cranberry) PO BID docusate sodium 100 mg PO BID estradiol 0.01%(0.1mg/gram) grams vaginal 2XW ezetimibe 10 mg PO DAILY fluticasone propion-salmeterol 500-50 mcg/dose (Advair Diskus) 1 inh inhalation BID inhalational spacing device ([facility] Rylee [facility] spacer) As directed losartan 25 mg PO DAILY magnesium oxide 500 mg PO DAILY mecobalamin (vitamin B12) mcg PO DAILY methenamine hippurate 1 g PO BID metoprolol succinate ER 75 mg PO DAILY mirtazapine 7.5 mg PO BEDTIME gmbkgyie-izz-iuwv-FA-vit K-lut (Multivitamin Women 50 Plus) PO psyllium husk (Metamucil) 0.4 grams PO DAILY Saccharomyces boulardii (Daily Probiotic (S. boulardii)) PO simethicone (Gas Relief (simethicone)) PO topiramate 50 mg PO DAILY vibegron (Gemtesa) 75 mg PO DAILY warfarin See Protocol 7.5mg x2days/ 5mg x5days; Nursing Note INR: 2.7 in therapeutic range of 2-3 Medications and supplements reviewed No changes in health, diet, medications, or supplements, Denies any signs and symptoms of bleeding or bruising or clotting. 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
--- OUTSIDE RECORDS SUMMARY | 2024-12-25 13:14 | XMS_ITS | Data Portability ---
Author Organization ID - [facility] Address [address] [place] [id number] Care Team Providers Care Silo Filler Name Role Phone ESTRADAIVETTE Primary Care Provider Assessment Encounter Date Assessment Date Assessment LastModified by Organization Details LastModified Time 08/19/2020 08/19/2020 Overview/History : 74-year-old female with past medical history significant for asthma, COPD, depression, dementia, hyperlipidemia, hypertension, history of PE and TIA, aortic dissection status post repair and aortic valve replacement, PAF on coumadin, and osteoporosis, new to [facility], who presents with complaints of tick bite. [...] WB and NE tick panel pending. Plan/Discussion: [facility] came to evaluate your rash. You likely [...] days. Thank you for your visit with [facility] today. We cannot always find the [...] in your condition between 8am-10pm, please call [facility] at [phone] to help navigate your care. Time On Scene with Patient: 00:51:41 simeon Not available 08/19/2020 12:31:00 Plan of Treatment Reminders Order Date Submit Date Provider Last Modified By Organization Details Last Modified Time Details Appointments None recorded. Lab lyme disease Ab, total, serum 2019 HIRAM [facility] (Centralized Electronic Ordering - All Locations), Patient Can Go To The Location Of Their Choice, [id number] 0 16:27:56 tick-borne disease panel 2019 [email or web address] [facility] (Centralized Electronic Ordering - All Locations), Patient Can Go To The Location Of Their Choice, [address] 1 13:50:37 Referral None recorded. Procedures None recorded. Surgeries None recorded. Imaging None recorded. Medication Orders doxycycline hyclate 100 mg capsule 2019 simeon [id number], [address] [facility] [place] [facility], [place], [address], 0 12:12:53 Patient TargetsNo targets recorded. Patient Instructions Encounter Date Encounter Id Patient Instructions Last Modified By Organization Details Last Modified Time 08/19/2020 [id number] [facility] came to evaluate your rash. You likely [...] days. [facility]. We cannot always find the [...] in your condition between 8am-10pm, please call [facility] at [phone] to help navigate your care. simeon Not [...] Go To The Location Of Their Choice, [id number] 08/21/2020 16:27:56 Result Notes None recorded. Problems Name Problem SNOMED Code Status Onset Date Resolution Date Notes Provider Name and Address Organization Details Recorded Time Dementia 61082755 Active 020 CECI VERA [address] [place], [address] , [place] [facility] 0 11:23:51 Problem Notes None recorded. Procedures Surgical History Date Name Laterality Status Provider Name and Address Organization Details Recorded Time 08/19/20 20 Venipuncture - DH completed CECI VERA [address], [place], [address], [place] [facility] 08/19/2020 12:21:11 Imaging Results None recorded. Procedure Notes None recorded. Medical Equipment None Reported. Allergies Allergen ID Allergen Name Allergen Category Reaction Reaction Severity Criticality Documentation Date Start Date Code Code System Note Provider Name and Address Organization Details Recorded Time 769035 Substance with sulfonami de structure and antibacte rial mechanism of action (substanc e) medicatio n Not available Not available Not available 08/19/2020 50535 8003 SNOMED CECI VER[place] [address] [place], [address], [place] [facility] 0 11:22:26 655234 Product containin g penicilli n (product) medicatio n Not available Not available Not available 08/19/2020 65403 8001 SNOMED CECI VER[place] [address] [place], [address], [place] [facility] 0 11:22:41 834418 acetamino phen / oxycodone medicatio n Not available Not available Not available 08/19/2020 68560 3 RxNorm CECI VERA [address], [place], [address], [place] [facility] 0 11:22:51 782134 nitrofura ntoin medicatio n Not available Not available Not available 08/19/2020 7454 RxNorm CECI VERA [address], [place], [address], [place] [facility] 0 11:23:05 149498 Tamiflu medicatio n Not available Not available Not available 08/19/2020 57836 7 RxNorm CECI VERA [address], [place], [address], [place] [facility] 0 11:23:13 257501 memantine medicatio n Not available Not available Not available 08/19/2020 6719 RxNorm CECI VERA [address], [place], [address], [place] [facility] 0 [...] Former Smoker CECI VERA [address], [place], [address], [place] [facility] 08/19/2020 11:29:43 Do You Have An Advance Directive? Yes [email or web address] Information not available 08/19/2020 What Is Your Code Status? DNR Information not available 08/19/2020 Within The Past 12 Months, Has It Happened That The Food You Bought Just Didn't Last And You Didn't Have Money To Get More. No Viajala Information not available 08/19/2020 Within The Past 12 Months, Have You Worried That Your Food Would Run Out Before You Got Money To Buy More. No Viajala Information not available 08/19/2020 Fall Risk: Do You Feel Unsteady When Standing Or Walking? No [email or web address] Information not available 08/19/2020 We Know That How And When People Interact With Friends And Family Can Be Very Different From Person To Person. How Often Do You Have The Opportunity To See Or Talk To People That You Care About And Feel Close To? (Ex: Talking To Friends On The Phone Or Visiting Friends Or Family Or Going To Hoahaoism Or Club Meetings) 5 Or More Times Per Week badCorkCRMki Information not available 08/19/2020 Excessive Alcohol Or Drug Use No Viajala Information not available 08/19/2020 We Know From Many Of Our Patients That Covering All Of Their Costs Can Be Difficult At Times. This Can Cause Stress And Impact Health. In The Past Year, Have You Been Unable To Get Any Of The Following When It Was Really Needed? No [email or web address] Information not available 08/19/2020 What Is Your [...] Response Diabetes N Coronary Artery Disease N High Cholesterol Y Cancer N Pulmonary Embolism Y Stroke Y Hypertension Y Asthma Y COPD Y Depression Y Kidney Disease N Gynecological HistoryNo gynecological history recorded. Obstetrics History GPAL:G 0 P 0 0 0 0 Past Encounters Encounter ID Performer Location Encounter Start Date Encounter Closed Date Diagnosis/Indication Diagnosis SNOMED-CT Code Diagnosis ICD10 Code Diagnosis Note [id number] CECI VERA [facility] [address] [place] [address] 08/19/2020 11:12:55 08/19/2020 19:09:01 Lyme disease 99125850 A69.20 Health Concerns Section Related Observation LastModified by Organization Detai ls LastModified Time None Recorded Concern Status LastModified by Organization Details LastModified Time None Recorded Advance Directives Directive Y: Payers Encounter Date Sequence Insurance Name Policy Number Policy Cottrell Covered Member ID Cottrell Member ID Guarantor Name 08/19/2020 1 [place] Lindsey José [id number] Lindsey José 08/19/2020 2 [place] [id number] Lindsey José [id number] Lindsey José Notes Date Note Type Note Provider Name and Address Organization Details Recorded Time 08/19/2020 text/html 74-year-old fema yakelin with past medical history significant for asthma, COPD, depression, dementia, hyperlipidemia, hypertension, history of PE and TIA, aortic dissection status post repair and aortic valve replacement, PAF on coumadin, and osteoporosis, new to [facility], who presents with complaints of tick bite. [...] any symptoms at this time. [facility] [place], [address], [place] [facility] 08/19/2020 12:31:09 OBGyn Episode No OBEpisode recorded.
--- OUTSIDE RECORDS SUMMARY | 2024-12-25 13:14 | XMS_ITS | Clinical Summary ---
Author Organization [facility] Address [address] [place] [address] Care Team Providers Care Outdoor Landscape Architect Name Role Phone Unavailable Primary Care Provider [...]
--- OUTSIDE RECORDS SUMMARY | 2024-12-25 13:14 | XMS_ITS | Encounter Summary ---
Author Organization [facility] Address [address] [place] [address] Care Team Providers Care Breast Puller Name Role Phone Unavailable Primary Care Provider Unavailabl e Encounter Details Date Type Department Care Team (Late st Contact Info) Description 07/27/2016 Scanned Document [facility] Cardiothoracic Surgery [place] [address] [facility] [address] [place] [address] Mnany Lindo MD [address] [facility] [address] [place] [address] Social History Tobacco Use Types Packs/Day Years [...]
== END 2024-12-25 11:06 | disposition home or self-care (01) ==
LOC: HO.ACS 10:53
PROVIDERS: PCP Internal Medicine; Visit Provider Internal Medicine Medical Oncology
DX: Z79.01 Long term (current) use of anticoagulants (principal)

== ENCOUNTER → 2024-12-25 10:53 | Outpatient (BNVA) | payer MEDICARE, SELFPAY | PROVIDERS: PCP Internal Medicine; Visit Provider Internal Medicine Medical Oncology | DX: I48.0 Paroxysmal atrial fibrillation (principal); Z51.81 Encounter for therapeutic drug level monitoring; Z79.01 Long term (current) use of anticoagulants | CPT/HCPCS: 85610; 99211 ==

== ENCOUNTER 2025-01-22 10:56 | Outpatient (AMB) | payer MEDICARE, SELFPAY ==
[2025-01-22 11:06] LABS: Prothrombin Time Whole Bld POC 25.3 sec (11.1-13.5); ~PT, ~INR - Anti Coag Clinic 2.1 (0.9-1.1)
--- NOTE | 2025-01-22 11:10 | MHC.OFFVISCO ---
Intake Intake Visit Reasons: Anticoagulation Allergies memantine Allergy (Severe, Verified 01/22/25 11:01) RAGE nitrofurantoin Allergy (Intermediate, Verified 01/22/25 11:01) RASH oseltamivir [From Tamiflu] Allergy (Intermediate, Verified 01/22/25 11:01) RASH oxycodone [From PERCOCET] Allergy (Unknown, Verified 01/22/25 11:01) UNKNOWN Penicillins [PENICILLINS] Allergy (Unknown, Verified 01/22/25 11:01) UNKNOWN Sulfa (Sulfonamide Antibiotics) [SULFA (SULFONAMIDE ANTIBIOTICS)] Allergy (Unknown, Verified 01/22/25 11:01) UNKNOWN Medication List - Last Reconciled 01/22/25 by Leidy Donahue RN acetaminophen (Tylenol Extra Strength) 1,000 mg (2 x 500 mg) PO QID PRN albuterol sulfate 90 mcg/actuation 2 puffs inhalation Q4-6H PRN alendronate 70 mg PO QWEEK ascorbic acid (vitamin C) (Vitamin C) 500 mg PO TID azithromycin 500 mg PO ONCE PRN biotin 5,000 mcg PO DAILY calcium carbonate-vitamin D3 600 mg-12.5 mcg (500 unit) (Calcium with Vit D3) calcium 1200, vit d 25mcg cetirizine 10 mg PO DAILY PRN cholecalciferol (vitamin D3) 250 McG DAILY PO; clotrimazole-betamethasone 1-0.05 % 1 appl topical BID cranberry fruit concentrate (Azo Cranberry) PO BID docusate sodium 100 mg PO BID estradiol 0.01%(0.1mg/gram) grams vaginal 2XW ezetimibe 10 mg PO DAILY fluticasone propion-salmeterol 500-50 mcg/dose (Advair Diskus) 1 inh inhalation BID inhalational spacing device ([facility] spacer) As directed losartan 25 mg PO DAILY magnesium oxide 500 mg PO DAILY mecobalamin (vitamin B12) mcg PO DAILY methenamine hippurate 1 g PO BID metoprolol succinate ER 75 mg PO DAILY mirtazapine 7.5 mg PO BEDTIME lfjvyanf-ees-hmsd-FA-vit K-lut (Multivitamin Women 50 Plus) PO psyllium husk (Metamucil) 0.4 grams PO DAILY Saccharomyces boulardii (Daily Probiotic (S. boulardii)) PO simethicone (Gas Relief (simethicone)) PO topiramate 50 mg PO DAILY vibegron (Gemtesa) 75 mg PO DAILY warfarin See Protocol 7.5mg x2days/ 5mg x5days; Nursing Note NO CP,SOB,DIET/MED CHANGES,FALLS OR SX OF BLEEDING. CONTINUE PRESENT DOSING AND FOLLOW-UP IN 4 WEEKS. GOOD UNDERSTANDING OF DOSING INSTR. Coding Level of Care Code Est Patient Level 1 Diagnoses Current use of anticoagulant therapy Z79.01 Assessment & Plan Assessment & Plan (1) Current use of anticoagulant therapy: Code(s): Z79.01 - jail (current) use of anticoagulants Category: Medical
--- OUTSIDE RECORDS SUMMARY | 2025-01-22 12:23 | XMS_ITS | Encounter Summary ---
Author Organization [facility] Address [address] [place] [address] Care Team Providers Care Chef German Name Role Phone Unavailable Primary Care Provider Unavailabl e Encounter Details Date Type Department Care Team (Late st Contact Info) Description 07/27/2016 Scanned Document [facility] Cardiothoracic Surgery [place] [address] [facility] [address] [place] [address] Manny Lindo MD [address] [facility] [address] [place] [address] Social History Tobacco Use Types Packs/Day Years Used Date Smoking Tobacco: Never Assessed Comments Unknown Sex and Gender Information Value Date Recorded Sex Assigned at Not on file Legal Sex Female 9:12 AM EST Gender Identity Not on file Sexual Orientation [...]
--- OUTSIDE RECORDS SUMMARY | 2025-01-22 12:23 | XMS_ITS | Clinical Summary ---
Author Organization [facility] Address [address] [place] [address] Care Team Providers Care Director Of Retail Name Role Phone Unavailable Primary Care Provider [...]
--- OUTSIDE RECORDS SUMMARY | 2025-01-22 12:23 | XMS_ITS | Data Portability ---
Author Organization [place] - [facility] Address [address] [place] [phone] Care Team Providers Care Wafer Line Worker Name Role Phone ESTRADAIVETTE Primary Care Provider Assessment Encounter Date Assessment Date Assessment LastModified by Organization Details LastModified Time 08/19/2020 08/19/2020 Overview/History : 74-year-old female with past medical history significant for asthma, COPD, depression, dementia, hyperlipidemia, hypertension, history of PE and TIA, aortic dissection status post repair and aortic valve replacement, PAF on coumadin, and osteoporosis, new to [facility], who presents with complaints of tick bite. [...] WB and NE tick panel pending. Plan/Discussion: [facility] came to evaluate your rash. You likely [...] days. Thank you for your visit with [facility] today. We cannot always find the exact [...] in your condition between 8am-10pm, please call [facility] at [phone] to help navigate your care. Time On Scene with Patient: 00:51:41 simeon Not available 08/19/2020 12:31:00 Plan of Treatment Reminders Order Date Submit Date Provider Last Modified By Organization Details Last Modified Time Details Appointments None recorded. Lab lyme disease Ab, total, serum 2019 HIRAM [facility] (Centralized Electronic Ordering - All Locations), Patient Can Go To The Location Of Their Choice, [address] 0 16:27:56 tick-borne disease panel 2019 [email or web address] [facility] (Centralized Electronic Ordering - All Locations), Patient Can Go To The Location Of Their Choice, [address] 1 13:50:37 Referral None recorded. Procedures None recorded. Surgeries None recorded. Imaging None recorded. Medication Orders doxycycline hyclate 100 mg capsule 2019 simeon [id number], [address] [facility], [place], [address], 0 12:12:53 Patient TargetsNo targets recorded. Patient Instructions Encounter Date Encounter Id Patient Instructions Last Modified By Organization Details Last Modified Time 08/19/2020 [id number] [facility] came to evaluate your rash. You likely [...] days. Thank you for your [facility] with [facility] today. We cannot always find the exact [...] in your condition between 8am-10pm, please call [facility] at [phone] to help navigate your care. simeon Not [...] Go To The Location Of Their Choice, [id number] 08/21/2020 16:27:56 Result Notes None recorded. Problems Name Problem SNOMED Code Status Onset Date Resolution Date Notes Provider Name and Address Organization Details Recorded Time Dementia 11159229 Active 020 CECI VERA [address], [address] , [place] [facility] 0 11:23:51 Problem Notes None recorded. Procedures Surgical History Date Name Laterality Status Provider Name and Address Organization Details Recorded Time 08/19/20 20 Venipuncture - DH completed CECI VERA [address], [place], [address], [place] [facility] 08/19/2020 12:21:11 Imaging Results None recorded. Procedure Notes None recorded. Medical Equipment None Reported. Allergies Allergen ID Allergen Name Allergen Category Reaction Reaction Severity Criticality Documentation Date Start Date Code Code System Note Provider Name and Address Organization Details Recorded Time 731810 Substance with sulfonami de structure and antibacte rial mechanism of action (substanc e) medicatio n Not available Not available Not available 08/19/2020 72847 8003 SNOMED CECI VERA [address] [place], [address], [place] [facility] 0 11:22:26 393611 Product containin g penicilli n (product) medicatio n Not available Not available Not available 08/19/2020 49379 8001 SNOMED CECI VERA [address] [place], [address], [place] [facility] 0 11:22:41 771442 acetamino phen / oxycodone medicatio n Not available Not available Not available 08/19/2020 47573 3 RxNorm CECI VERA [address], [place], [address], [place] [facility] 0 11:22:51 433059 nitrofura ntoin medicatio n Not available Not available Not available 08/19/2020 7454 RxNorm CECI VERA [address], [place], [address], [place] [facility] 0 11:23:05 572393 Tamiflu medicatio n Not available Not available Not available 08/19/2020 19618 7 RxNorm CECI VERA [address], [place], [address], [place] [facility] 0 11:23:13 259966 memantine medicatio n Not available Not available Not available 08/19/2020 6719 RxNorm CECI VERA [address], [place], [address], [place] [facility] 0 [...] Former Smoker CECI VERA [address], [place], [address], [place] [facility] 08/19/2020 11:29:43 Do You Have An Advance Directive? Yes [employer] Information not available 08/19/2020 What Is Your Code Status? DNR Information not available 08/19/2020 Within The Past 12 Months, Has It Happened That The Food You Bought Just Didn't Last And You Didn't Have Money To Get More. No Swapper Trade Information not available 08/19/2020 Within The Past 12 Months, Have You Worried That Your Food Would Run Out Before You Got Money To Buy More. No [employer] Information not available 08/19/2020 Fall Risk: Do You Feel Unsteady When Standing Or Walking? No [employer] Information not available 08/19/2020 We Know That How And When People Interact With Friends And Family Can Be Very Different From Person To Person. How Often Do You Have The Opportunity To See Or Talk To People That You Care About And Feel Close To? (Ex: Talking To Friends On The Phone Or Visiting Friends Or Family Or Going To [employer] Or Club Meetings) 5 Or More Times Per Week badHG Data Companyki Information not available 08/19/2020 Excessive Alcohol Or Drug Use No Swapper Trade Information not available 08/19/2020 We Know From Many Of Our Patients That Covering All Of Their Costs Can Be Difficult At Times. This Can Cause Stress And Impact Health. In The Past Year, Have You Been Unable To Get Any Of The Following When It Was Really Needed? No [employer] Information not available 08/19/2020 What Is Your [...] Coronary Artery Disease N High Cholesterol Y Pulmonary Embolism Y Cancer N Hypertension Y Stroke Y COPD Y Depression Y Asthma Y Kidney Disease N Gynecological HistoryNo gynecological history recorded. Obstetrics History GPAL:G 0 P 0 0 0 0 Past Encounters Encounter ID Performer Location Encounter Start Date Encounter Closed Date Diagnosis/Indication Diagnosis SNOMED-CT Code Diagnosis ICD10 Code Diagnosis Note [id number] CECI VERA [facility] [address] [place] [address] 08/19/2020 11:12:55 08/19/2020 19:09:01 Lyme disease 09729714 A69.20 Health Concerns Section Related Observation LastModified by Organization Detai ls LastModified Time None Recorded Concern Status LastModified by Organization Details LastModified Time None Recorded Advance Directives Directive Y: Payers Insurance Date Sequence Insurance Name Policy Number Policy Cottrell Covered Member ID Cottrell Member ID Guarantor Name 08/19/2020 1 *SELF PAY* Lindsey José [id number] Lindsey José 08/19/2020 1 [place] Lindsey José [id number] Lindsey José 08/19/2020 2 [facility] [id number] Lindsey José [id number] Lindsey José 08/19/2020 2 [facility] ([place] Lindsey José [id number] Lindsey José Notes Date Note Type Note Provider Name and Address Organization Details Recorded Time 08/19/2020 text/html 74-year-old fema yakelin with past medical history significant for asthma, COPD, depression, dementia, hyperlipidemia, hypertension, history of PE and TIA, aortic dissection status post repair and aortic valve replacement, PAF on coumadin, and osteoporosis, new to [facility], who presents with complaints of tick bite. [...] any symptoms at this time. CECI VERA [address], [place], [address], [place] [facility] 08/19/2020 12:31:09 OBGyn Episode No OBEpisode recorded.
--- OUTSIDE RECORDS SUMMARY | 2025-01-22 12:23 | XMS_ITS | Continuity of Care Document ---
Author Organization [facility] Norberto hao Address [address] [place] [address] [place] [address]- Care Team Providers Care Admin Dir Name Role Phone Harris Lennon MD Primary Care Physician [phone] [place] [facility] [id number] Date(s): 01/09/25 - 01/16/25 [facility] [address] [place] [address] Drive [address] [place] [address]- Attending Physician: Doreen Skelton MD Referring Physician: Harris Lennon MD Encounter Type: Office Visit Allergies, Adverse Reactions, Alerts Substance Criticality Severity [...] 3:51:44 PM EST, Route to Pharmacy Electronically, [facility] 3 Start Date: 08/29/18 Stop Date: 09/28/18 [...] 3:52:01 PM EST, Route to Pharmacy Electronically, [facility] Start Date: 08/29/18 Stop Date: 09/28/18 Status: Ordered Quantity: 60.0 Unit: capsule Repeat number: 1 estradiol 0.1 mg/g vaginal cream See Instructions, INSERT 1 GRAM VAGINALLY TWICE A WEEK AT BEDTIME, # 42.5 Gm, 2 Refills, Maintenance, 04/24/24 7:59:00 AM EDT, [facility]/pharmacy #[id number], 158, cm, 10/13/22 15:06:00 EST, Height [...] Refills, Soft Stop, 05/21/22 2:26:00 PM EDT, [facility]/pharmacy #[id number], Partial fill upon patient request if [...] Refills, Soft Stop, 08/19/22 12:12:00 PM EST, [facility]/pharmacy #[id number], Partial fill upon patient request if [...] Stop, 08/04/21 4:26:00 PM EST, REC Powder, [facility]/pharmacy #[id number], Partial fill upon patient request if [...] 3 Refills, Maintenance, 10/30/24 4:57:00 PM EST, [id number], 158, cm, 09/26/24 13:19:00 EST, Height Start [...] 11 Refills, Maintenance, 09/04/24 2:29:00 PM EST, [facility]/pharmacy #[id number], 158, cm, 10/13/22 15:06:00 EST, Height Start Date: 09/04/24 Status: Ordered Quantity: 60.0 Unit: tablet Repeat number: 12 metoprolol 25 mg oral tablet 25 mg, 1, tablet, By Mouth, 2 times a day, use TARTRATE, # 60 tablet, Refills 0, Tot. Refills 0, Maintenance, 08/29/18 3:50:47 PM EST, Route to Pharmacy Electronically, [facility] Start Date: 08/29/18 Stop Date: 09/28/18 [...] Refills, Maintenance, 09/04/24 2:29:00 PM EST, Tablet, [facility]/pharmacy #[id number], Partial fill upon patient request if [...] Refills, Maintenance, 08/29/18 3:51:27 PM EST, Tablet, [facility] Start Date: 08/29/18 Stop Date: [...] oldest [Reference Range]: 1 Height 158 cm (01/09/25 10:27 AM) Weight 66.8 kg (01/09/25 10:27 AM) Oxygen Saturation [94-100 %] 99 % (01/09/25 10: AM) Pulse Rate [55-90 bpm] 60 bpm (01/09/25 10: AM) Body Mass Index [18.5-24.99 kg/m2] 26.76 kg/m2 *H* (01/09/25 10: AM) Blood Pressure [90-138/55-84 mm Hg] 126/ 80mm Hg (01/09/25 10: AM) Respiratory Rate [16-30 br/min] 14 br/mi n *L* (01/09/25 10: AM) Temperature [96.8-100.4 DegF] 97 DegF (01/09/25 10: AM) Mode of Delivery (Oxygen) Room air (01/09/25 10: AM) Blood pressure sites Arm, right (01/09/25 10: AM) Temperature Route Oral (01/09/25 10: AM) Weight Obtained Via Standing scale (01/09/25 10:27 AM) Social History Social History Type Response Smoking Status Former smoker, quit more than 30 days ago entered on: 03/18/20 Sex Sex Representation Female (finding) Cardiac surgery Outpatient Note * Nafisa AZEVEDO, Doreen Talbert: PERFORM, MODIFY, MODIFY, MODIFY, MODIFY Event Display: Cardiac Surgery Note Office Authored Date: [id number] Patient: ??CECIL GARCIA ? Age:??79 Years?Sex:??Female?:??1945?? Indication for Consult type A dissection ?? Consult Requesting Practitioner: Citlalli Primary Tub Tender:??MD Kim; he has left the practice.?? She does not have a new??primarycardiologist. ??They are looking to establish one this summer. Consult Reason: Follow-up after aortic dissection repair done in [place] 2016 IC: n/a History of Present Illness/Interval History Ms. 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 She is doing quite well without complaints.?? She admits to dementia and poor memory which is worsening since her dx of Alzheimer's in 2017-. ?? She tells me she has no new changes and she monitors her blood pressure.?? No chest or back pain, no abdominal pain. ?? I personally reviewed her CT angio chest.?? The Type B dissection is stable and without aneurysm progression. ?? She is using 2 canes for ambulation due to a??left knee issue. ??She is with her today.? Imaging reviewed and personally interpreted by me: CTA chest: October 13, 2024, stable??repair of aortic dissection. ??Descending aorta measures 3.3 cm. Echo: At [facility] on??September 10, 2024 shows??LVEF??59%,??there is a well-seated bioprosthetic aortic valve. ??The peak??velocity is 264 m/s,??mean gradient 15 mmHg. ??No AI. Review of Systems Cardiac: Symptoms of congestion: No Symptomatic hypotension: No Symptoms of ischemia: no Constitutional:?? Recent infection: No; no fever, no chills Unintentional weight loss/cachexia: No Respiratory: Symptomatic primary lung disease: No; No cough, No shortness of breath? All other systems are negative unless noted above. Physical Exam Vitals & Measurements T:??97?F?? HR:??60??(Peripheral)?? RR:??14?? BP:??126/80?? SpO2:??99%?? HT:??158??cm?? WT:??66.8??kg?? BMI:??26.76?? 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 She has no signs of malperfusion and her CT has been stable.?? We did talk about the importance of BP control and fortunately sheis a nonsmoker.?? We spoke about should anything change or this becomes aneurysmal, the possibilityof TEVAR.?? At this time, she does not need this, no clear indication. ?? We discussed preventative strategies including careful blood pressure and lipid management. ??We discussed the potential advantages of home blood pressure monitoring and maintaining a log for??her family physician, as well as, alerting them to changing trends. ??Fortunately??she is not a smoker. ??We additionally discussed a concerted effort to minimizing lifting greater than 30-50 pounds for sustained periods. ??Finally, we discussed the advantages of ongoing surveillance by CT imaging. ??Given??her??history of previous studies, we will plan on Biennial contrasted CT scans of the chest./ab/pelvis.? She seemed comfortable with our discussion of all of these issues and I believe had??her questions answered. ?? Follow up with me in??2 [address] with a surveillance CT chest/abdomen/pelvis, with contrast. 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 atrial fibrillation, she's postop AVR on Coumadin recommend baby aspirin daily ?? She has echocardiographic findings??consistent with??at least moderate aortic valve stenosis.?? I recommend close follow-up for this valve. ??Should she need??it replaced in the future we could evaluate her for transcatheter approach. ?Doreen Skelton MD ?[facility]?[address], [address] ?[place] [address] ?Pager: [phone] ?Office: [phone] ? Allergies Macrobid Percocet 5/325 Tamiflu penicillins??(hives) sulfa drugs??(rash) Home Medications acetaminophen 500 mg oral tablet, 500 mg= 1 tablet, By Mouth, Every 4 hours, PRN Advair Diskus 100 mcg-50 mcg inhalation powder, 1 puffs, Inhalation, 2 times a day Advair Diskus 500 mcg-50 mcg inhalation powder, 1 puffs, Inhalation, 2 times a day alendronate 70 mg oral tablet, 70 mg= 1 tablet, By Mouth, Every week aspirin 81 mg oral delayed release tablet, 81 mg= 1 tablet, By Mouth, Daily atorvastatin 40 mg oral tablet, 40 mg= 1 tablet, By Mouth, Daily azithromycin 500 mg oral tablet, 500 mg= 1 tablet, By Mouth B-Complex with B-12, 1 tablet, By Mouth, Daily Calcium 600 +D, See Instructions Central-Mc, 1 tablet, By Mouth, Daily cetirizine 10 mg oral capsule, 10 mg= 1 capsule, By Mouth, Daily D-Mannose docusate sodium 100 mg oral capsule, 100 mg= 1 capsule, By Mouth, 2 times a day estradiol 0.1 mg/g vaginal cream, See Instructions, 2 refills Flax Seed Oil oral capsule fosfomycin 3 g oral granule for reconstitution, 3 Gm= 1 each, By Mouth, Once fosfomycin 3 g oral granule for reconstitution, 3 Gm= 1 each, By Mouth, Once fosfomycin 3 gm oral powder for reconstitution, 1 pack/packet, By Mouth, Once Gemtesa 75 mg oral tablet, See Instructions levalbuterol 45 mcg/inh inhalation aerosol, 1 puffs, Inhalation, Every 4 hours lisinopril 5 mg oral tablet, 5 mg= 1 tablet, By Mouth, Daily magnesium magnesium salicylate 500 mg oral tablet, 580 mg= 1 tablet, By Mouth, 4 times a day Melatonin, Daily at bedtime methenamine hippurate 1 gm oral tablet, 1 tablet, By Mouth, 2 times a day, 11 refills metoprolol 25 mg oral tablet, 25 mg= 1 tablet, By Mouth, 2 times a day metoprolol 50 mg oral tablet, 50 mg= 1 tablet, By Mouth, 2 times a day mirtazapine 7.5 mg oral tablet, 15 mg= 2 tablet, By Mouth, Daily at bedtime pantoprazole 40 mg oral delayed release tablet, 40 mg= 1 tablet, By Mouth, Daily predniSONE 1 mg oral tablet, 3 mg= 3 tablet, By Mouth, Every other day predniSONE 1 mg oral tablet, 2 mg= 2 tablet, By Mouth, Every other day ProAir HFA 90 mcg/inh inhalation aerosol, 2 puffs, Inhalation, Every 6 hours topiramate 50 mg oral capsule, extended release, 50 mg= 1 capsule, By Mouth, Daily traMADol 50 mg oral tablet, 50 mg= 1 tablet, By Mouth, Every 4 hours Vitamin C 500 mg oral tablet, 500 mg= 1 tablet, By Mouth, 2 times a day, 11 refills Vitamin D3 oral tablet, 400 International_Units= 1 tablet, By Mouth, Daily warfarin 2.5 mg oral tablet, 2.5 mg= 1 tablet, By Mouth, Daily, [address] Angio Abdomen and Pelvis ?? 14:13:14 IMPRESSION: 1. Stable residual dissection involving the abdominal aorta and ending in the proximal left external iliac artery. 2. No acute abnormality identified in the abdomen and pelvis. WSN: [id number] ? Ordering Physician: Doreen Skelton ?? Signed By: Rodrigo Cruz MD ECG ECG 12-Lead ?? 06:51:38 Ventricular Rate: 67 BPM Atrial Rate: 67 BPM P-R Interval: 244 ms QRS Duration: 96 ms Q-T Interval: 394 ms QTC Calculation(Bezet): 416 ms P [place]: 81 degrees R [place]: 5 degrees T [place]: 47 degrees Sinus rhythm with 1st degree A-V block with occasional Premature ventricular complexes Left ventricular hypertrophy with repolarization abnormality When compared with ECG of 25-AUG-2018 20:39, Premature ventricular complexes are now Present Nonspecific T wave abnormality, improved in Lateral leads Confirmed ?? Signed By: Contributor_system, MUSE Stress Test No qualifying data available. Echo Echocardiogram - Complete ?? 08:31:34 Summary The left ventricle is normal in size, wall thickness and systolic function. The ejection fraction is 60-65%. The right ventricle is normal in size and function. Bioprosthetic aortic valve with trace central insufficiency. Mildly elevated peak velocity and mean gradient without evidence of significant stenosis as per discussion above. The central venous pressure estimation is 3 mmHg. ?? Comparison No prior study available for comparison. ?? Signature ?? Signed By: Chan Monroe MD Problem List/Past Medical History Ongoing Arthritis Asthma Atrial fibrillation COPD - Chronic obstructive pulmonary disease Dementia GERD - Gastro-esophageal reflux disease Hyperlipidemia Hypertension Injury of back of head Myocardial infarction Osteoarthritis Osteoporosis Stroke Type B aortic dissection Procedure/Surgical History Hysterectomy Hysterectomy Rotator cuff repair Ligation of vein Aortic valvuloplasty Shoulder repair Repair of type A aortic dissection Social History Alcohol Use: Never. Employment/School Status: Retired. Exercise Self assessment: Poor condition. Home/Environment Living situation: Home/Independent. Lives with: Spouse. Nutrition/Health Diet: Regular. Sexual Sexually involved in last 6 months: No. Substance Abuse Use: Never. Tobacco Use: Former smoker, quit more than 30 days ago. ?? for 60 years Non-smoker Uses canes for ambulation Family History Mother: Heart attack; Heart disease; Hyperlipidemia; Hypertension Father: Diabetes ?18-JAN-2015 22:16:31<$>; Hyperlipidemia; H ypertension; Osteoporosis Sibling: Heart attack; Heart disease; Hyperlipidemia; Hypertension; Osteoporosis Note * Maritza Landa: PERFORM Event Display: Patient Education/Instruction Authored Date: Ambulatory Adult Visit Summary [facility] [address] [place] [address] [place] [address] Name: CECIL GARCIA : 1945?? Visit: 01/09/2025 10:13?? Ambulatory Visit Instructions ?? Your Care Team Primary Care Provider Citlalli AZEVEDO, Harris Obrien? This Visit Provider Nafisa AZEVEDO, Doreen Talbert Vitals Signs Temperature: 97 DegF Height: 158 cm Pulse Rate: 60 bpm Weight: 66.8 kg Respiratory Rate:??14 br/min??Low Body Mass Index:??26.76 kg/m2??High Systolic Blood Pressure: 126 mm Hg Body surface area: 1.71 Diastolic Blood Pressure: 80 mm Hg ?? Oxygen Saturation: 99 % ?? What to do next Future Orders BUN - Routine, Once, 09/25/24 14:54:00 EST, Single or Recurring Future Order, [facility], Blood?? Creatinine - Routine, Once, 09/25/24 14:54:00 EST, Single or Recurring Future Order, [facility], Blood?? Creatinine - Routine, Once, 12/07/24 16:44:00 EDT, Future Order, [facility], Blood?? Medications The list below reflects the information in our records and provided by you today along with any changes made during this visit. Please continue your medications until treatment is completed or stopped by your provider. If this is different from the information you have or there are other questions,please contact the prescribing provider. What How Much When Instructions Unchanged Acetaminophen (acetaminophen 500 mg oral tablet) 1 tab(s) Oral Every 4 hours as needed for for pain Unchanged Albuterol (ProAir HFA 90 mcg/ inh inhalation aerosol) 2 puff(s) Inhalation Every 6 hours Unchanged Alendronate (alendronate 70 mg oral tablet) 1 tab(s) Oral Every week Unchanged Ascorbic Acid (Vitamin C 500 mg oral tablet) 1 tab(s) Oral Twice a day Unchanged Aspirin (aspirin 81 mg oral delayed release tablet) 1 tab(s) Oral Daily Duration: 30 Days Unchanged Atorvastatin (atorvastatin 40 mg oral tablet) 1 tab(s) Oral Daily Unchanged Azithromycin (azithromycin 500 mg oral tablet) 1 tab(s) Oral PRN dental procedure ?? Unchanged Calcium And Vitamin D Combination (Calcium 600 +D) See instructions By Mouth ?? Unchanged Cetirizine (cetirizine 10 mg oral capsule) 1 capsule Oral Daily Unchanged Cholecalciferol (Vitamin D3 oral tablet) 1 tab(s) Oral Daily Unchanged Docusate (docusate sodium 100 mg oral capsule) 1 capsule Oral Twice a day Duration: 30 Days hold if +diarrhea ?? Unchanged Estradiol Topical (estradiol 0.1 mg/ g vaginal cream) See instructions INSERT 1 GRAM VAGINALLY TWICE A WEEK AT BEDTIME ?? Unchanged Flax (Flax Seed Oil oral capsule) Unchanged Fluticasone-Salmeterol (Advair Diskus 100 mcg-50 mcg inhalation powder) 1 puff(s) Inhalation Twice a day Unchanged Fluticasone-Salmeterol (Advair Diskus 500 mcg-50 mcg inhalation powder) 1 puff(s) Inhalation Twice a day Unchanged fosfomycin (fosfomycin 3 g oral granule for reconstitution) 1 Each Oral Once Unchanged fosfomycin (fosfomycin 3 g oral granule for reconstitution) 1 Each Oral Once Unchanged fosfomycin (fosfomycin 3 gm oral powder for reconstitution) 1 pack/packet Oral Once dissolve in water before taking ?? Unchanged Levalbuterol (levalbuterol 45 mcg/ inh inhalation aerosol) 1 puff(s) Inhalation Every 4 hours Unchanged Lisinopril (lisinopril 5 mg oral tablet) 1 tab(s) Oral Daily Unchanged Magnesium Salicylate (magnesium salicylate 500 mg oral tablet) 1 tab(s) Oral 4 times a day Unchanged Melatonin Daily at Bedtime Unchanged Methenamine (methenamine hippurate 1 gm oral tablet) 1 tab(s) Oral Twice a day Unchanged Metoprolol (metoprolol 25 mg oral tablet) 1 tab(s) Oral Twice a day Duration: 30 Days use TARTRATE ?? Unchanged Metoprolol (metoprolol 50 mg oral tablet) 1 tab(s) Oral Twice a day Unchanged Mirtazapine (mirtazapine 7.5 mg oral tablet) 2 tab(s) Oral Daily at Bedtime Unchanged Miscellaneous Rx (D-Mannose) Unchanged Miscellaneous Rx (magnesium) Unchanged Multivitamin (B-Complex with B-12) 1 tab(s) Oral Daily Unchanged Multivitamin With Minerals (Central-Mc) 1 tab(s) Oral Daily Unchanged Pantoprazole (pantoprazole 40 mg oral delayed release tablet) 1 tab(s) Oral Daily Unchanged PredniSONE (predniSONE 1 mg oral tablet) 2 tab(s) Oral Every other day Unchanged PredniSONE (predniSONE 1 mg oral tablet) 3 tab(s) Oral Every other day Unchanged Topiramate (topiramate 50 mg oral capsule, extended release) 1 capsule Oral Daily Unchanged Tramadol (traMADol 50 mg oral tablet) 1 tab(s) Oral Every 4 hours Unchanged vibegron (Gemtesa 75 mg oral tablet) See instructions TAKE 1 TABLET BY MOUTH EVERY DAY ?? Unchanged Warfarin (warfarin 2.5 mg oral tablet) 1 tab(s) Oral Daily Duration: 30 Days Medications and Immunizations Administered Medications Given During Visit No medications given during this visit.?? Allergies (NKA means No Known Allergies) Macrobid Percocet Tamiflu penicillins??(hives) sulfa drugs??(rash) Common Emergency Awareness Tips IS IT A STROKE? Act FAST and Check for these signs: FACE Does the face look uneven? ARM Does one arm drift down? SPEECH Does their speech sound strange? TIME Call at any sign of stroke ?? Heart Attack Signs Chest discomfort: Most heart attacks involve discomfort in the center of the chest and lasts more than a few minutes, or goes away and comes back. It can feel like uncomfortable pressure, squeezing, fullness or pain. Discomfort in upper body: Symptoms can include pain or discomfort in one or both arms, back, neck, jaw or stomach. Shortness of breath: With or without discomfort. Other signs: Breaking out in a cold sweat, nausea, or lightheaded. Remember, MINUTES DO MATTER. If you experience any of these heart attack warning signs, call to get immediate medical attention! ?? Smoking can increase your chances of developing chronic health problems and can cause harmful effects to other family members in your house. If you smoke, you are strongly encouraged to quit. Please call [facility] Link at [phone] or [phone] [employer] Systems ([phone]) or log in to [email or web address] for referrals to smoking cessation programs. ?? The National Suicide Prevention Hotline is available 04/04 if you or someone you know needs to find a reason to keep living. By calling 9-869-954-AFreeze (5091) you'll be connected to a skilled, trained counselor at a crisis center in your area. [facility] Portal You can view and manage your care through the patient portal or by using a health care rosemarie of your choosing. [employer] is a website that allows you to securely view your medical information including your hospital discharge summary, office visit summaries, medications and follow-up visits. You can also request appointments, renew medications, and request access to your medical information using a health care rosemarie of your choosing, or just ask a question. You can enroll at [email or web address] or register during your next office visit. [facility], in keeping with [facility] guidance, no longer requires face masks for staff, patientsor visitors in most situations. Similiar to time spent indoors at other locations, there is the chance that you were exposed to repiratory viruses during your time with us (such as flu or COVID-19). If you develop symptoms concerning for a viral respiratory infection, please seek testing (and treatment if indicated) from your medical provider or home test kit. ?? Disclaimer: The information provided is of a general nature and is intended to be used in conjunction with the recommendations and advice of your health care practitioner. Every effort has been made to ensure that the information provided is accurate and complete at the time it is provided to you however, as your needs change, or, as new information becomes available, different or additional instructions may be required. ?? If you have questions, please consult with your primary care provider or pharmacist, as appropriate. This information is not intended to serve as substitution for assessment and evaluation by a qualified health care provider. If you do not have a primary care provider, you may find a [facility] provider by calling [facility] at [phone]. Patient Care team information Care Team Personnel Name: Connie FONTANA, Janey Position: S RN Member Role: Primary Care Nurse Name: Harris Lennon MD Position: Reference Physician Member Role: PCP Address: [address] [place] [address] [address] Telecom: Care Team Related Persons Name: SYLVIE GARCIA Insurance Providers Guarantor name: CECIL JOSE Health Plan Information #: 2 Payer: [employer] Member Number: [id number] Policy Number: NA Group Number: NA Health Plan Information #: 1 Payer: MEDICARE PART B OUTPT Member Number: [id number] Policy Number: NA Group Number: NA
== END 2025-01-22 11:13 | disposition home or self-care (01) ==
LOC: HO.ACS 10:56
PROVIDERS: PCP Internal Medicine; Visit Provider Internal Medicine Medical Oncology
DX: Z79.01 Long term (current) use of anticoagulants (principal)

== ENCOUNTER → 2025-01-22 10:56 | Outpatient (BNVA) | payer MEDICARE, SELFPAY | PROVIDERS: PCP Internal Medicine; Visit Provider Internal Medicine Medical Oncology | DX: I48.0 Paroxysmal atrial fibrillation (principal); Z79.01 Long term (current) use of anticoagulants; Z51.81 Encounter for therapeutic drug level monitoring | CPT/HCPCS: 85610; 99211 ==

== ENCOUNTER 2025-02-18 10:48 | Outpatient (AMB) | payer MEDICARE, SELFPAY ==
[2025-02-18 10:59] LABS: Prothrombin Time Whole Bld POC 31.5 sec (11.1-13.5); ~PT, ~INR - Anti Coag Clinic 2.6 (0.9-1.1)
--- NOTE | 2025-02-18 11:03 | MHC.OFFVISCO ---
Intake Intake Visit Reasons: Anticoagulation Allergies memantine Allergy (Severe, Verified 02/18/25 10:52) RAGE nitrofurantoin Allergy (Intermediate, Verified 02/18/25 10:52) RASH oseltamivir [From Tamiflu] Allergy (Intermediate, Verified 02/18/25 10:52) RASH oxycodone [From PERCOCET] Allergy (Unknown, Verified 02/18/25 10:52) UNKNOWN Penicillins [PENICILLINS] Allergy (Unknown, Verified 02/18/25 10:52) UNKNOWN Sulfa (Sulfonamide Antibiotics) [SULFA (SULFONAMIDE ANTIBIOTICS)] Allergy (Unknown, Verified 02/18/25 10:52) UNKNOWN Medication List - Last Reconciled 02/18/25 by Aby Schuler RN acetaminophen (Tylenol Extra Strength) 1,000 mg (2 x 500 mg) PO QID PRN albuterol sulfate 90 mcg/actuation 2 puffs inhalation Q4-6H PRN alendronate 70 mg PO QWEEK ascorbic acid (vitamin C) (Vitamin C) 500 mg PO TID azithromycin 500 mg PO ONCE PRN biotin 5,000 mcg PO DAILY calcium carbonate-vitamin D3 600 mg-12.5 mcg (500 unit) (Calcium with Vit D3) calcium 1200, vit d 25mcg cetirizine 10 mg PO DAILY PRN cholecalciferol (vitamin D3) 250 McG DAILY PO; clotrimazole-betamethasone 1-0.05 % 1 appl topical BID cranberry fruit concentrate (Azo Cranberry) PO BID docusate sodium 100 mg PO BID estradiol 0.01%(0.1mg/gram) grams vaginal 2XW ezetimibe 10 mg PO DAILY fluticasone propion-salmeterol 500-50 mcg/dose (Advair Diskus) 1 inh inhalation BID inhalational spacing device ([facility] spacer) As directed losartan 25 mg PO DAILY magnesium oxide 500 mg PO DAILY mecobalamin (vitamin B12) mcg PO DAILY methenamine hippurate 1 g PO BID metoprolol succinate ER 75 mg PO DAILY mirtazapine 7.5 mg PO BEDTIME kvjlxbry-hro-lbny-FA-vit K-lut (Multivitamin Women 50 Plus) PO psyllium husk (Metamucil) 0.4 grams PO DAILY Saccharomyces boulardii (Daily Probiotic (S. boulardii)) PO simethicone (Gas Relief (simethicone)) PO topiramate 50 mg PO DAILY vibegron (Gemtesa) 75 mg PO DAILY warfarin See Protocol 7.5mg x2days/ 5mg x5days; Nursing Note INR: 2.6 in therapeutic range Medications and supplements reviewed No changes in health, diet, medications, or supplements, Denies any signs and symptoms of bleeding or bruising or clotting. Bleeding, bruising, clotting discussed Nutritional guidance given Dose: 5MG X 3 DAYS/ 2.5MG X 4 DAYS F/U INR: 1 MONTH Patient verbalizes understanding of instructions given Questionnaires HAS-BLED Does the patient had uncontrolled Hypertension?: No Does the patient have renal disease?: No Does the patient have liver disease?: No Does the patient have a history of stroke?: Yes Has the patient had major bleeding or predisposition to bleeding?: Yes Does the patient have labile INRs?: Yes Is the patient over 65 years of age?: Yes Is the patient on medications that gives them a predisposition to bleeding?: Yes Does the patient use alcohol?: No HAS-BLED Score: 5 CHADSVASC Age: 75 or over Gender: Female Does the patient have a history of CHF?: No Does the patient have a history of Hypertension?: Yes Does the patient have a history of Stroke/TIA/Thromboembolism?: Yes Does the patient have a history of Vascular Disease (prior UT, PAD or aortic plaque)?: Yes (CAD) Does the patient have a history of Diabetes?: No CHADS VACS Score: 7 Deon Prediction Score Rsk VTE Active Cancer: No Previous VTE, excluding superficial vein thrombosis: Yes Reduced mobility: Yes Already known Thrombophilic Condition: No With-in last month Trauma and/or Surgery: No Elderly 70 year or older: Yes Heart and/or Respiratory Failure: No Acute Myocardial infarction and/or Ischemic Stroke: Yes Acute Infection and/or Rheumatologic Disorder: No Obesity (BMI 30 or greater): No Ongoing Hormonal Treatment: No Score: 8 Deon Score less than 4; Low Risk of VTE Deon Score 4 or greater; High Risk of VTE Coding Level of Care Code Est Patient Level 1 Diagnoses Current use of anticoagulant therapy Z79.01 Results AMB INR Fingerstick AMB INR Fingerstick 2.6 Last Edit by Aby Schuler RN on 06/09/25 11:01 manual entry Assessment & Plan Assessment & Plan (1) Current use of anticoagulant therapy: Code(s): Z79.01 - detention (current) use of anticoagulants Category: Medical
--- OUTSIDE RECORDS SUMMARY | 2025-02-18 12:11 | XMS_ITS | Patient Health Record ---
Author [facility]ia [place] Address [address] [facility] [place] [address] Care Team Providers Care Outreach Assistant Name Role Phone Damien Lance Primary Care Provider Brianne Arcos Unavailable [phone] Allergies Allergen (clinical drug ingredient) Drug/Non Drug Allergy documented on EMR Reaction Allergy Type Onset Date Status sulfa Unknown Drug Allergy Active Penicillin Unknown Drug Allergy Active Reason For Referral No Information Medications Medication SIG (Take, Route, Fr equency, Duration) Notes Start Date End Date Status predniSONE Active Multi For Her 50+ Ac tive Super B Complex Acti ve Primidone Active Lyrica Active Atorvastatin Calcium Active Flaxseed Oil Active Vitamin D3 Active dilTIAZem HCl Active Fluoxetine Active Calcium Active Acetaminophen Active Propafenone HCl Acti ve LORazepam Active Xarelto Active Problems No Known Problems Plan Of Treatment No Information Insurance Providers Payer Name Payer Address Payer Phone Subscriber Number Group Number Insured Name Patient Relationship to Insured Coverage Start Date Coverage End Date Medicare National Govt Svcs Inc [address] [place] [address] [id number] Lindsey José Self - patient is the insured Med[employer] Blue Shield [address] [place] [address] [id number] Lindsey José Self - patient is the insured Medical (General) History Medical History History ICD Code osteoarthritis asthma Back,Hip,and Knee pain Broken bones Cholesterol Dementia Depression Heart disease Hypertension Neuropathy Reflux chronic sinusitis Measles Mumps Chicken pox Joint implants/screws Transfusions
== END 2025-02-18 11:10 | disposition home or self-care (01) ==
LOC: HO.ACS 10:48
PROVIDERS: PCP Internal Medicine; Visit Provider Internal Medicine Medical Oncology
DX: Z79.01 Long term (current) use of anticoagulants (principal)

== ENCOUNTER → 2025-02-18 10:48 | Outpatient (BNVA) | payer MEDICARE, SELFPAY | PROVIDERS: PCP Internal Medicine; Visit Provider Internal Medicine Medical Oncology | DX: I48.0 Paroxysmal atrial fibrillation (principal); Z79.01 Long term (current) use of anticoagulants; Z51.81 Encounter for therapeutic drug level monitoring | CPT/HCPCS: 85610; 99211 ==

== ENCOUNTER 2025-03-19 10:45 | Outpatient (AMB) | payer MEDICARE, SELFPAY ==
[2025-03-19 10:53] LABS: Prothrombin Time Whole Bld POC 21.5 sec (11.1-13.5); ~PT, ~INR - Anti Coag Clinic 1.8 (0.9-1.1)
--- NOTE | 2025-03-19 11:04 | MHC.OFFVISCO ---
Intake Intake Visit Reasons: Anticoagulation Allergies memantine Allergy (Severe, Verified 03/19/25 10:48) RAGE nitrofurantoin Allergy (Intermediate, Verified 03/19/25 10:48) RASH oseltamivir (From Tamiflu) Allergy (Intermediate, Verified 03/19/25 10:48) RASH oxycodone (From PERCOCET) Allergy (Unknown, Verified 03/19/25 10:48) UNKNOWN Penicillins (PENICILLINS) Allergy (Unknown, Verified 03/19/25 10:48) UNKNOWN Sulfa (Sulfonamide Antibiotics) (SULFA (SULFONAMIDE ANTIBIOTICS)) Allergy (Unknown, Verified 03/19/25 10:48) UNKNOWN Medication List - Last Reconciled 03/19/25 by Criselda Marshall RN acetaminophen (Tylenol Extra Strength) 1,000 mg (2 x 500 mg) PO QID PRN albuterol sulfate 90 mcg/actuation 2 puffs inhalation Q4-6H PRN alendronate 70 mg PO QWEEK ascorbic acid (vitamin C) (Vitamin C) 500 mg PO TID azithromycin 500 mg PO ONCE PRN biotin 5,000 mcg PO DAILY calcium carbonate-vitamin D3 600 mg-12.5 mcg (500 unit) (Calcium with Vit D3) calcium 1200, vit d 25mcg cetirizine 10 mg PO DAILY PRN Held on 12/29/23. Instructions: Doctor's Order cholecalciferol (vitamin D3) 250 McG DAILY PO; clotrimazole-betamethasone 1-0.05 % 1 appl topical BID Held on 12/29/23. Instructions: Doctor's Order cranberry fruit concentrate (Azo Cranberry) PO BID docusate sodium 100 mg PO BID estradiol 0.01%(0.1mg/gram) grams vaginal 2XW ezetimibe 10 mg PO DAILY Held on 12/29/23. Instructions: Doctor's Order fluticasone propion-salmeterol 500-50 mcg/dose (Advair Diskus) 1 inh inhalation BID inhalational spacing device ([facility] spacer) As directed losartan 25 mg PO DAILY magnesium oxide 500 mg PO DAILY mecobalamin (vitamin B12) mcg PO DAILY methenamine hippurate 1 g PO BID metoprolol succinate ER 75 mg PO DAILY mirtazapine 7.5 mg PO BEDTIME glkssnba-our-vdsn-FA-vit K-lut (Multivitamin Women 50 Plus) PO psyllium husk (Metamucil) 0.4 grams PO DAILY Saccharomyces boulardii (Daily Probiotic (S. boulardii)) PO simethicone (Gas Relief (simethicone)) PO topiramate 50 mg PO DAILY Held on 12/29/23. Instructions: Doctor's Order vibegron (Gemtesa) 75 mg PO DAILY warfarin See Protocol 7.5mg x2days/ 5mg x5days; Nursing Note Pt to [facility] accompanied by INR: 1.8 out of therapeutic range of 2-3 Medications and supplements reviewed No changes in health, diet, medications, or supplements, Denies any signs and symptoms of bleeding or bruising or clotting. Bleeding, bruising, clotting discussed Nutritional guidance given to avoid greens today and to have a serving of foods that raises the INR. Food list discussed. Pt stated she will have rhubarb. Dose: increase today's dose to 5mg (usual 2.5mg) then resume usual dose of 2.5mg X 4 days and 5mg X 3 days (M/W/F) F/U INR: 4 weeks Patient verbalizes understanding of instructions given Coding Level of Care Code Est Patient Level 1 Diagnoses Current use of anticoagulant therapy Z79.01 Results AMB INR Fingerstick AMB INR Fingerstick 1.8 Last Edit by Criselda Marshall RN on 03/19/25 11:02 interface delay Assessment & Plan Assessment & Plan (1) Current use of anticoagulant therapy: Code(s): Z79.01 - intermediate project manager (current) use of anticoagulants Category: Medical
--- OUTSIDE RECORDS SUMMARY | 2025-03-19 11:47 | XMS_ITS | Data Portability ---
Author Organization [place] - [facility] Address [address] [place] [address] Care Team Providers Care Jordan Man Name Role Phone ESTRADAIVETTE Primary Care Provider Assessment Encounter Date Assessment Date Assessment LastModified by Organization Details LastModified Time 08/19/2020 08/19/2020 Overview/History : 74-year-old female with past medical history significant for asthma, COPD, depression, dementia, hyperlipidemia, hypertension, history of PE and TIA, aortic dissection status post repair and aortic valve replacement, PAF on coumadin, and osteoporosis, new to [facility], who presents with complaints of tick bite. [...] WB and NE tick panel pending. Plan/Discussion: [facility] came to evaluate your rash. You likely [...] days. Thank you for your visit with [facility] today. We cannot always find the exact [...] in your condition between 8am-10pm, please call [facility] at [phone] to help navigate your care. Time On Scene with Patient: 00:51:41 simeon Not available 08/19/2020 12:31:00 Plan of Treatment Reminders Order Date Submit Date Provider Last Modified By Organization Details Last Modified Time Details Appointments None recorded. Lab lyme disease Ab, total, serum 2019 HIRAM [facility] (Centralized Electronic Ordering - All Locations), Patient Can Go To The Location Of Their Choice, [id number] 0 16:27:56 tick-borne disease panel 2019 [facility] (Centralized Electronic Ordering - All Locations), Patient Can Go To The Location Of Their Choice, [address] 1 13:50:37 Referral None recorded. Procedures None recorded. Surgeries None recorded. Imaging None recorded. Medication Orders doxycycline hyclate 100 mg capsule 2019 simeon [id number], [address], [place], [address], 0 12:12:53 Patient TargetsNo targets recorded. Patient Instructions Encounter Date Encounter Id Patient Instructions Last Modified By Organization Details Last Modified Time 08/19/2020 [id number] [facility] came to evaluate your rash. You likely [...] days. [facility]. We cannot always find the [...] in your condition between 8am-10pm, please call [facility] at [phone] to help navigate your care. simeon Not [...] PERFO RMED BY LAB[facility] RP, RARIT AN, AUTUMN JEFFERSONE Y Not Available [facility] (Centralized Electronic Ordering - All Locations) Patient Can Go To The Location Of Their Choice, [id number] 08/21/2020 16:27:56 Result Notes None recorded. Problems Name Problem SNOMED Code Status Onset Date Resolution Date Notes Provider Name and Address Organization Details Recorded Time Dementia 32412725 Active 020 CECI VERA [address] [place], [address] , [place] [facility] 0 11:23:51 Problem Notes None recorded. Procedures Surgical History Date Name Laterality Status Provider Name and Address Organization Details Recorded Time 08/19/20 20 Venipuncture - DH completed CECI VERA [address], [place], [address], [place] [facility] 08/19/2020 12:21:11 Imaging Results None recorded. Procedure Notes None recorded. Medical Equipment None Reported. Allergies Allergen ID Allergen Name Allergen Category Reaction Reaction Severity Criticality Documentation Date Start Date Code Code System Note Provider Name and Address Organization Details Recorded Time 510451 Substance with sulfonami de structure and antibacte rial mechanism of action (substanc e) medicatio n Not available Not available Not available 08/19/2020 97149 8003 SNOMED CECI VERA [address] [place], [address], [place] [facility] 0 11:22:26 040903 Product containin g penicilli n (product) medicatio n Not available Not available Not available 08/19/2020 05968 8001 SNOMED CECI VERA [address] [place], [address], [place] [facility] 0 11:22:41 066795 acetamino phen / oxycodone medicatio n Not available Not available Not available 08/19/2020 32724 3 RxNorm CECI VERA [address], [place], [address], [place] [facility] 0 11:22:51 642559 nitrofura ntoin medicatio n Not available Not available Not available 08/19/2020 7454 RxNorm CECI VERA [address], [place], [address], [place] [facility] 0 11:23:05 513999 Tamiflu medicatio n Not available Not available Not available 08/19/2020 67311 7 RxNorm CECI VERA [address], [place], [address], [place] [facility] 0 11:23:13 152652 memantine medicatio n Not available Not available Not available 08/19/2020 6719 RxNorm CECI VERA [address], [place], [address], [place] [facility] 0 [...] blood by Pulse oximetry Heart rate Systolic And Diastolic Provider Name and Address Organization Details Last Updated DateTime 0 64 /min 97.6 [degF] 18 /min 99 % 99 % 62 /min 130/68 mm[Hg] Not Available [facility] 0 11:27:27 Social History Question Answer Notes LastModified by Organizat ion Details LastModified Time Tobacco Smoking Status Former Smoker CECI VEAR [address], [place], [address], [place] [facility] 08/19/2020 11:29:43 Do You Have An Advance Directive? Yes Information not available 08/19/2020 What Is Your Code Status? DNR Information not available 08/19/2020 Within The Past 12 Months, Has It Happened That The Food You Bought Just Didn't Last And You Didn't Have Money To Get More. No Provigentki Information not available 08/19/2020 Within The Past 12 Months, Have You Worried That Your Food Would Run Out Before You Got Money To Buy More. No Provigentki Information not available 08/19/2020 Fall Risk: Do You Feel Unsteady When Standing Or Walking? No badiXpertki Information not available 08/19/2020 We Know That How And When People Interact With Friends And Family Can Be Very Different From Person To Person. How Often Do You Have The Opportunity To See Or Talk To People That You Care About And Feel Close To? (Ex: Talking To Friends On The Phone Or Visiting Friends Or Family Or Going To Anabaptist Or Club Meetings) 5 Or More Times Per Week badiXpertki Information not available 08/19/2020 Excessive Alcohol Or Drug Use No Provigentki Information not available 08/19/2020 We Know From Many Of Our Patients That Covering All Of Their Costs Can Be Difficult At Times. This Can Cause Stress And Impact Health. In The Past Year, Have You Been Unable To Get Any Of The Following When It Was Really Needed? No Information not available 08/19/2020 What Is Your [...] Artery Disease N Cancer N Stroke Y COPD Y Depression Y Asthma Y High Cholesterol Y Pulmonary Embolism Y Hypertension Y Kidney Disease N Gynecological HistoryNo gynecological history recorded. Obstetrics History GPAL:G 0 P 0 0 0 0 Past Encounters Encounter ID Performer Location Encounter Start Date Encounter Closed Date Diagnosis/Indication Diagnosis SNOMED-CT Code Diagnosis ICD10 Code Diagnosis Note [id number] CECI VERA [facility] [address] [place] [address] 08/19/2020 11:12:55 08/19/2020 19:09:01 Lyme disease 01257921 A69.20 Health Concerns Section Related Observation LastModified by Organization Detai ls LastModified Time None Recorded Concern Status LastModified by Organization Details LastModified Time None Recorded Advance Directives Directive Y: Payers Insurance Date Sequence Insurance Name Policy Number Policy Cottrell Covered Member ID Cottrell Member ID Guarantor Name 08/19/2020 1 *SELF PAY* Lindsey José [id number] Lindsey José 08/19/2020 1 [place] Lindsey José [id number] Lindsey José 08/19/2020 2 [facility] (POS) [id number] Lindsey José [id number] Lindsey José 08/19/2020 2 [facility] Lindsey José [id number] Lindsey José Notes Date Note Type Note Provider Name and Address Organization Details Recorded Time 08/19/2020 text/html 74-year-old fema yakelin with past medical history significant for asthma, COPD, depression, dementia, hyperlipidemia, hypertension, history of PE and TIA, aortic dissection status post repair and aortic valve replacement, PAF on coumadin, and osteoporosis, new to [facility], who presents with complaints of tick bite. [...] this time. CECI VERA [address], [place], [address], [place] [facility] 08/19/2020 12:31:09 OBGyn Episode No OBEpisode recorded.
--- OUTSIDE RECORDS SUMMARY | 2025-03-19 11:47 | XMS_ITS | Patient Health Record ---
Author Organization [facility] celia [place]oseF[place] Address [address] [place] [address] Care Team Providers Care Educational Psychology Teacher Name Role Phone Damien Lance Primary Care Provider Brianne Arcos Unavailable [phone] Allergies Allergen (clinical drug ingredient) Drug/Non Drug [...] Medicare National Govt Svcs Inc [address] [facility] [place] [address] [id number] Lindsey José Self - patient is the insured [employer] Blue Shield [address] [place] [address] [phone] [id number] Lindsey José Self - patient is the insured Medical (General) History Medical History History ICD Code osteoarthritis asthma Back,Hip,and Knee pain Broken bones Cholesterol Dementia Depression Heart disease Hypertension Neuropathy Reflux chronic sinusitis Measles Mumps Chicken pox Joint implants/screws Transfusions
--- OUTSIDE RECORDS SUMMARY | 2025-03-19 11:47 | XMS_ITS | Clinical Summary ---
Author Organization [facility] Address [address] [place] [address] Care Team Providers Care Data Science And Iot Manager Name Role Phone Unavailable Primary Care Provider [...]
== END 2025-03-19 11:07 | disposition home or self-care (01) ==
LOC: HO.ACS 10:45
PROVIDERS: PCP Internal Medicine; Visit Provider Internal Medicine Medical Oncology
DX: Z79.01 Long term (current) use of anticoagulants (principal)

== ENCOUNTER → 2025-03-19 10:45 | Outpatient (BNVA) | payer MEDICARE, SELFPAY | PROVIDERS: PCP Internal Medicine; Visit Provider Internal Medicine Medical Oncology | DX: I48.0 Paroxysmal atrial fibrillation (principal); Z79.01 Long term (current) use of anticoagulants; Z51.81 Encounter for therapeutic drug level monitoring | CPT/HCPCS: 85610; 99211 ==

== ENCOUNTER 2025-04-15 10:46 | Outpatient (AMB) | payer MEDICARE, SELFPAY ==
[2025-04-15 10:57] LABS: Prothrombin Time Whole Bld POC 25.0 sec (11.1-13.5); ~PT, ~INR - Anti Coag Clinic 2.1 (0.9-1.1)
--- NOTE | 2025-04-15 11:26 | MHC.OFFVISCO ---
Intake Intake Visit Reasons: Anticoagulation Allergies memantine Allergy (Severe, Verified 04/15/25 10:48) RAGE nitrofurantoin Allergy (Intermediate, Verified 04/15/25 10:48) RASH oseltamivir (From Tamiflu) Allergy (Intermediate, Verified 04/15/25 10:48) RASH oxycodone (From PERCOCET) Allergy (Unknown, Verified 04/15/25 10:48) UNKNOWN Penicillins (PENICILLINS) Allergy (Unknown, Verified 04/15/25 10:48) UNKNOWN Sulfa (Sulfonamide Antibiotics) (SULFA (SULFONAMIDE ANTIBIOTICS)) Allergy (Unknown, Verified 04/15/25 10:48) UNKNOWN Medication List - Last Reconciled 04/15/25 by Criselda Marshall RN acetaminophen (Tylenol Extra Strength) 1,000 mg (2 x 500 mg) PO QID PRN albuterol sulfate 90 mcg/actuation 2 puffs inhalation Q4-6H PRN alendronate 70 mg PO QWEEK ascorbic acid (vitamin C) (Vitamin C) 500 mg PO TID azithromycin 500 mg PO ONCE PRN biotin 5,000 mcg PO DAILY calcium carbonate-vitamin D3 600 mg-12.5 mcg (500 unit) (Calcium with Vit D3) calcium 1200, vit d 25mcg cetirizine 10 mg PO DAILY PRN Held on 12/29/23. Instructions: Doctor's Order cholecalciferol (vitamin D3) 250 McG DAILY PO; clotrimazole-betamethasone 1-0.05 % 1 appl topical BID Held on 12/29/23. Instructions: Doctor's Order cranberry fruit concentrate (Azo Cranberry) PO BID docusate sodium 100 mg PO BID estradiol 0.01%(0.1mg/gram) grams vaginal 2XW ezetimibe 10 mg PO DAILY Held on 12/29/23. Instructions: Doctor's Order fluticasone propion-salmeterol 500-50 mcg/dose (Advair Diskus) 1 inh inhalation BID inhalational spacing device ([facility] Rylee [facility] spacer) As directed losartan 25 mg PO DAILY magnesium oxide 500 mg PO DAILY mecobalamin (vitamin B12) mcg PO DAILY methenamine hippurate 1 g PO BID metoprolol succinate ER 75 mg PO DAILY mirtazapine 7.5 mg PO BEDTIME qyudbuhk-rwz-zyuq-FA-vit K-lut (Multivitamin Women 50 Plus) PO psyllium husk (Metamucil) 0.4 grams PO DAILY Saccharomyces boulardii (Daily Probiotic (S. boulardii)) PO simethicone (Gas Relief (simethicone)) PO topiramate 50 mg PO DAILY Held on 12/29/23. Instructions: Doctor's Order vibegron (Gemtesa) 75 mg PO DAILY warfarin See Protocol 7.5mg x2days/ 5mg x5days; Nursing Note INR: 2.1 in therapeutic range of 2-3 Medications and supplements reviewed No changes in diet, medications, or supplements. Denies any signs and symptoms of bleeding or bruising or clotting. Bleeding, bruising, clotting discussed. Nutritional guidance given to avoid greens today Dose: 2.5mg X 4 days and 5mg X 3 days (M/W/F) F/U INR: 2 weeks on 05/01/25 1 day prior to left knee injection for pain. Pt has a 3 day hold of warfarin for procedure on 05/02/25 and goal is for INR 2.0 or less before procedure. Patient verbalizes understanding of instructions given T/C to pcp Dr Lennon, [phone], to check if hold of warfarin is necessary as this procedure is a minimal bleed risk. Message left. Awaiting return call. Coding Level of Care Code Est Patient Level 1 Diagnoses Current use of anticoagulant therapy Z79.01 Assessment & Plan Assessment & Plan (1) Current use of anticoagulant therapy: Code(s): Z79.01 - custodial (current) use of anticoagulants Category: Medical
--- OUTSIDE RECORDS SUMMARY | 2025-04-15 11:41 | XMS_ITS | Clinical Summary ---
Author Organization [facility] Address [address] [place] [address] Care Team Providers Care Deicer Kit Assembler Name Role Phone Unavailable Primary Care [...]
--- OUTSIDE RECORDS SUMMARY | 2025-04-15 11:41 | XMS_ITS | Patient Health Record ---
Author Organization [facility] celia [place]oseF[facility] Address [address] [facility] [place] [address] Care Team Providers Care Mine Environmental Engineer Name Role Phone Damien Lance Primary Care Provider Brianne Arcos Unavailable [phone] Allergies Allergen (clinical drug ingredient) Drug/Non Drug [...] Medicare National Govt Svcs Inc [address] [place] [address] [id number] Lindsey José Self - patient is the insured [employer] Blue [employer] [address] [place] [address] [id number] Lindsey José Self - patient is the insured Medical (General) History Medical History History ICD Code osteoarthritis asthma Back,Hip,and Knee pain Broken bones Cholesterol Dementia Depression Heart disease Hypertension Neuropathy Reflux chronic sinusitis Measles Mumps Chicken pox Joint implants/screws Transfusions
== END 2025-04-15 16:55 | disposition home or self-care (01) ==
LOC: HO.ACS 10:46
PROVIDERS: PCP Internal Medicine; Visit Provider Internal Medicine Medical Oncology
DX: Z79.01 Long term (current) use of anticoagulants (principal)

== ENCOUNTER → 2025-04-15 10:46 | Outpatient (BNVA) | payer MEDICARE, SELFPAY | PROVIDERS: PCP Internal Medicine; Visit Provider Internal Medicine Medical Oncology | DX: Z51.81 Encounter for therapeutic drug level monitoring (principal); Z79.01 Long term (current) use of anticoagulants | CPT/HCPCS: 85610; 99211 ==

== ENCOUNTER 2025-05-01 10:50 | Outpatient (AMB) | payer MEDICARE, SELFPAY ==
[2025-05-01 11:06] LABS: Prothrombin Time Whole Bld POC 19.5 sec (11.1-13.5); ~PT, ~INR - Anti Coag Clinic 1.6 (0.9-1.1)
--- NOTE | 2025-05-01 11:15 | MHC.OFFVISCO ---
Intake Intake Visit Reasons: Anticoagulation Allergies memantine Allergy (Severe, Verified 05/01/25 11:01) RAGE nitrofurantoin Allergy (Intermediate, Verified 05/01/25 11:01) RASH oseltamivir (From Tamiflu) Allergy (Intermediate, Verified 05/01/25 11:01) RASH oxycodone (From PERCOCET) Allergy (Unknown, Verified 05/01/25 11:01) UNKNOWN Penicillins (PENICILLINS) Allergy (Unknown, Verified 05/01/25 11:01) UNKNOWN Sulfa (Sulfonamide Antibiotics) (SULFA (SULFONAMIDE ANTIBIOTICS)) Allergy (Unknown, Verified 05/01/25 11:01) UNKNOWN Medication List - Last Reconciled 05/01/25 by Leidy Donahue RN acetaminophen (Tylenol Extra Strength) 1,000 mg (2 x 500 mg) PO QID PRN albuterol sulfate 90 mcg/actuation 2 puffs inhalation Q4-6H PRN alendronate 70 mg PO QWEEK ascorbic acid (vitamin C) (Vitamin C) 500 mg PO TID azithromycin 500 mg PO ONCE PRN biotin 5,000 mcg PO DAILY calcium carbonate-vitamin D3 600 mg-12.5 mcg (500 unit) (Calcium with Vit D3) calcium 1200, vit d 25mcg cetirizine 10 mg PO DAILY PRN Held on 12/29/23. Instructions: Doctor's Order cholecalciferol (vitamin D3) 250 McG DAILY PO; clotrimazole-betamethasone 1-0.05 % 1 appl topical BID Held on 12/29/23. Instructions: Doctor's Order cranberry fruit concentrate (Azo Cranberry) PO BID docusate sodium 100 mg PO BID estradiol 0.01%(0.1mg/gram) grams vaginal 2XW ezetimibe 10 mg PO DAILY Held on 12/29/23. Instructions: Doctor's Order fluticasone propion-salmeterol 500-50 mcg/dose (Advair Diskus) 1 inh inhalation BID inhalational spacing device ([facility] Rylee [facility] spacer) As directed losartan 25 mg PO DAILY magnesium oxide 500 mg PO DAILY mecobalamin (vitamin B12) mcg PO DAILY methenamine hippurate 1 g PO BID metoprolol succinate ER 75 mg PO DAILY mirtazapine 7.5 mg PO BEDTIME sifcfzbp-hhc-ykis-FA-vit K-lut (Multivitamin Women 50 Plus) PO psyllium husk (Metamucil) 0.4 grams PO DAILY Saccharomyces boulardii (Daily Probiotic (S. boulardii)) PO simethicone (Gas Relief (simethicone)) PO topiramate 50 mg PO DAILY Held on 12/29/23. Instructions: Doctor's Order vibegron (Gemtesa) 75 mg PO DAILY warfarin See Protocol 7.5mg x2days/ 5mg x5days; Nursing Note PT. IS PRESENTLY ON A 3 DAY WARFARIN HOLD FOR KNEE INJECTION ON 05/02. PT.HAS INSTRUCTIONS TO RESTART WARFARIN THE DAY AFTER INJECTION AT THE USUAL DOSE PER , AND PT.TO VERIFY THIS TOMORROW AFTER THE PROCEDURE. WILL BOOST ON 05/04 TO 5MGM AND FOLLOW-UP HERE ON 05/08/25. Coding Level of Care Code Est Patient Level 1 Diagnoses Current use of anticoagulant therapy Z79.01 Assessment & Plan Assessment & Plan (1) Current use of anticoagulant therapy: Code(s): Z79.01 - intermediate (current) use of anticoagulants Category: Medical
--- OUTSIDE RECORDS SUMMARY | 2025-05-01 12:10 | XMS_ITS | Encounter Summary ---
Author Organization [facility] Address [address] [place] [address] Phone Care Team Providers Care Food Counselor Name Role Phone Harris Lennon MD Primary Care Provider + [phone] Kory Vogt MD Unavailable Harris Lennon MD Unavailable [phone] Margarita Davidson RN Unavailable [phone] Jyoti Aviles OT Unavailable [phone] Encounter Details Date Type Department Care Team (Late st Contact Info) Description 08/02/2022 Procedure Pass [facility] [address] [place], [place] [id number] Social History Tobacco Use Types Packs/Day Years Used Date Smoking Tobacco: Former Cigarettes Q uit: 1972 Smokeless Tobacco: Former Quit: 1968 Alcohol Use Standard Drinks/Week Comments No 0 (1 standard drink = 0.6 oz pur e alcohol) Comments No Sex and Gender Information Value [...] Upcoming Encounters Date Type Department Care Team (Latest Contact Info) Description 04/08/2025 Procedure Pass [facility] [address] [place] [address] 05/02/2025 10:30 AM EDT Telemedicine - audio only [facility] Medicine [address] [place] [address] [place] [address] Anastacia Velasquez, CALISTA [address] [facility], [address] [place] [address] 05/02/2025 4:15 PM EDT Office Visit [facility] [address] [place] [address] Chan Cruz MD [address] [place] [address] Orthopedics & Sports Medicine, [place] [address] [email or web address] 09/09/2025 11:15 AM EST Appointment Echo Lab [address] [place] [address] Stacie Gruber PA-C [address] [place] [address] [email or web address] 09/27/2025 10:40 AM EST Office Visit [facility] [address] [place] [address] Dr 3rd Floor, [address] [place] [address] Davidson Gunter MD [address] [place] [address], [address] [address] [email or web address] 02/14/2026 10:10 AM EDT Office Visit [facility] [address] [place] [address] [place] [address] Talon Seth DO [address] [place] [address] documented as of this encounter Visit Diagnoses Not on filedocumented in this encounter Additional Health Concerns Infection Onset Date Last Indicated Resolved Time CoV-Risk 08/21/2022 08/21/2022 09/01/2022 1:23 AM EST CoV-Risk 11/16/2023 11/16/2023 11/27/2023 1:21 AM EDT Assessment Noted Time PHQ-9 Depression Total Score: 15 018 2:17 PM EST PHQ-2 Depression Total Score: 0 10/07/19 2:55 PM EST documented as of this encounter Care Teams Food Counselor Relationship Specialty Start Date End Date Harris Lennon MD [address] [place] [address], [address] [place] [address] PCP - General Internal Medicine 01/16/21 Kory Vogt MD [address] [place] [address] Gastroenterology 10/07/21 Harris Lennon MD [address] [place] [address] [address] [place] [address] Insurance Assigned Provider 12/17/23 Margarita Davidson, RN [address] [place] [address] iCMP Canopy StringerMedicaid Plan Compliance Director 07/01/22 02/17/25 Jyoti Aviles, OT [address] [place] [address] Transitions Canopy StringerAmmonia Operator Therapy 12/12/2312/14/23 documented as of this encounter Additional Source Comments The information contained in this document represents components of the legal health record. It is not the complete legal health record.[facility]
--- OUTSIDE RECORDS SUMMARY | 2025-05-01 12:10 | XMS_ITS | Clinical Summary ---
Author Organization [facility] Address [address] [place] [address] Care Team Providers Care Gate Agent Name Role Phone Unavailable Primary Care Provider [...]
--- OUTSIDE RECORDS SUMMARY | 2025-05-01 12:10 | XMS_ITS | Patient Health Record ---
[facility] Address [address] [facility] [place] [address] Care Team Providers Care Hot Tar Roofer Helper Name Role Phone Damien Lance Primary Care Provider Brianne Arcos Unavailable [phone] Allergies Allergen (clinical drug ingredient) Drug/Non Drug [...] Medicare National Govt Sv[employer] [address] [place] [address] [id number] Lindsey José Self - patient is the insured [employer] [address] [place] [address] [id number] Lindsey José Self - patient is the insured Medical (General) History Medical History History ICD Code osteoarthritis asthma Back,Hip,and Knee pain Broken bones Cholesterol Dementia Depression Heart disease Hypertension Neuropathy Reflux chronic sinusitis Measles Mumps Chicken pox Joint implants/screws Transfusions
== END 2025-05-01 11:20 | disposition home or self-care (01) ==
LOC: HO.ACS 10:50
PROVIDERS: PCP Internal Medicine; Visit Provider Internal Medicine Medical Oncology
DX: Z79.01 Long term (current) use of anticoagulants (principal)

== ENCOUNTER → 2025-05-01 10:50 | Outpatient (BNVA) | payer MEDICARE, SELFPAY | PROVIDERS: PCP Internal Medicine; Visit Provider Internal Medicine Medical Oncology | DX: Z51.81 Encounter for therapeutic drug level monitoring (principal); Z79.01 Long term (current) use of anticoagulants | CPT/HCPCS: 85610; 99211 ==

== ENCOUNTER 2025-05-08 10:49 | Outpatient (AMB) | payer MEDICARE, SELFPAY ==
--- NOTE | 2025-05-08 11:04 | MHC.OFFVISCO ---
Intake Intake Visit Reasons: Anticoagulation Allergies memantine Allergy (Severe, Verified 05/08/25 11:00) RAGE nitrofurantoin Allergy (Intermediate, Verified 05/08/25 11:00) RASH oseltamivir (From Tamiflu) Allergy (Intermediate, Verified 05/08/25 11:00) RASH oxycodone (From PERCOCET) Allergy (Unknown, Verified 05/08/25 11:00) UNKNOWN Penicillins (PENICILLINS) Allergy (Unknown, Verified 05/08/25 11:00) UNKNOWN Sulfa (Sulfonamide Antibiotics) (SULFA (SULFONAMIDE ANTIBIOTICS)) Allergy (Unknown, Verified 05/08/25 11:00) UNKNOWN Medication List - Last Reconciled 05/08/25 by Petra Petersen RN acetaminophen (Tylenol Extra Strength) 1,000 mg (2 x 500 mg) PO QID PRN albuterol sulfate 90 mcg/actuation 2 puffs inhalation Q4-6H PRN alendronate 70 mg PO QWEEK ascorbic acid (vitamin C) (Vitamin C) 500 mg PO TID azithromycin 500 mg PO ONCE PRN biotin 5,000 mcg PO DAILY calcium carbonate-vitamin D3 600 mg-12.5 mcg (500 unit) (Calcium with Vit D3) calcium 1200, vit d 25mcg cetirizine 10 mg PO DAILY PRN Held on 12/29/23. Instructions: Doctor's Order cholecalciferol (vitamin D3) 250 McG DAILY PO; clotrimazole-betamethasone 1-0.05 % 1 appl topical BID Held on 12/29/23. Instructions: Doctor's Order cranberry fruit concentrate (Azo Cranberry) PO BID docusate sodium 100 mg PO BID estradiol 0.01%(0.1mg/gram) grams vaginal 2XW ezetimibe 10 mg PO DAILY Held on 12/29/23. Instructions: Doctor's Order fluticasone propion-salmeterol 500-50 mcg/dose (Advair Diskus) 1 inh inhalation BID inhalational spacing device ([facility] spacer) As directed losartan 25 mg PO DAILY magnesium oxide 500 mg PO DAILY mecobalamin (vitamin B12) mcg PO DAILY methenamine hippurate 1 g PO BID metoprolol succinate ER 75 mg PO DAILY mirtazapine 7.5 mg PO BEDTIME godjqkuz-vwa-kanl-FA-vit K-lut (Multivitamin Women 50 Plus) PO psyllium husk (Metamucil) 0.4 grams PO DAILY Saccharomyces boulardii (Daily Probiotic (S. boulardii)) PO simethicone (Gas Relief (simethicone)) PO topiramate 50 mg PO DAILY Held on 12/29/23. Instructions: Doctor's Order vibegron (Gemtesa) 75 mg PO DAILY warfarin See Protocol 7.5mg x2days/ 5mg x5days; Nursing Note INR: 2.3- in therapeutic range 2-3 Medications and supplements reviewed No changes in health, diet, medications, or supplements, Denies any signs and symptoms of bleeding or bruising or clotting. Bleeding, bruising, clotting discussed Nutritional guidance given Dose: 5mg x 3, 2.5mg x 4 F/U INR: 2 weeks Patient verbalizes understanding of instructions given pt states left knee injection 05/02/25, pt held warfarin for 3 days prior to acs amb with cane, acompanied by spouse Coding Level of Care Code Est Patient Level 1 Diagnoses Current use of anticoagulant therapy Z79.01 Results AMB INR Fingerstick AMB INR Fingerstick 2.3 Last Edit by Petra Petersen RN on 05/08/25 11:07 interface delay Assessment & Plan Assessment & Plan (1) Current use of anticoagulant therapy: Code(s): Z79.01 - snf (current) use of anticoagulants Category: Medical
--- OUTSIDE RECORDS SUMMARY | 2025-05-08 11:41 | XMS_ITS | Patient Health Record ---
Author Organization [facility] Address [address] [facility] [place] [address] Care Team Providers Care Area Plant Manager Name Role Phone Damien Lance Primary Care Provider Brianne Arcos Unavailable [phone] Allergies Allergen (clinical drug ingredient) Drug/Non Drug [...] Medicare National Govt Svcs Inc [address] [place] [address] [id number] Lindsey José Self - patient is the insured [employer] [address] [place] [address] [phone] [id number] Lindsey José Self - patient is the insured Medical (General) History Medical History History ICD Code osteoarthritis asthma Back,Hip,and Knee pain Broken bones Cholesterol Dementia Depression Heart disease Hypertension Neuropathy Reflux chronic sinusitis Measles Mumps Chicken pox Joint implants/screws Transfusions
--- OUTSIDE RECORDS SUMMARY | 2025-05-08 11:41 | XMS_ITS | Clinical Summary ---
Author Organization [facility] Address [address] [place] [address] Care Team Providers Care Erp Project Manager Name Role Phone Unavailable Primary Care [...]
--- OUTSIDE RECORDS SUMMARY | 2025-05-08 11:41 | XMS_ITS | Encounter Summary ---
Author Organization [facility] Address [address] [place] [address] Care Team Providers Care School Occupational Therapist Name Role Phone Unavailable Primary Care Provider Unavailabl e Encounter Details Date Type Department Care Team (Late st Contact Info) Description 07/27/2016 Scanned Document [facility] Cardiothoracic Surgery [place] [address] [facility] [address] [place] [address] Manny Lindo MD [address] [facility] [address] [place] [address] Social History Tobacco Use Types Packs/Day Years [...]
[2025-05-09 08:07] LABS: Prothrombin Time Whole Bld POC 27.5 sec (11.1-13.5); ~PT, ~INR - Anti Coag Clinic 2.3 (0.9-1.1)
== END 2025-05-08 11:13 | disposition home or self-care (01) ==
LOC: HO.ACS 10:49
PROVIDERS: PCP Internal Medicine; Visit Provider Internal Medicine Medical Oncology
DX: Z79.01 Long term (current) use of anticoagulants (principal)

== ENCOUNTER → 2025-05-08 10:49 | Outpatient (BNVA) | payer MEDICARE, SELFPAY | PROVIDERS: PCP Internal Medicine; Visit Provider Internal Medicine Medical Oncology | DX: Z51.81 Encounter for therapeutic drug level monitoring (principal); Z79.01 Long term (current) use of anticoagulants | CPT/HCPCS: 85610; 99211 ==

== ENCOUNTER 2025-05-21 10:46 | Outpatient (AMB) | payer MEDICARE, SELFPAY ==
--- OUTSIDE RECORDS SUMMARY | 2022-08-21 13:20 | XMS_ITS | Encounter Summary ---
Author Organization [facility] Address [address] [place] [address] Phone Care Team Providers Care Filling Station Equipment Mechanic Name Role Phone Harris Lennon MD Primary Care Provider +1- [phone] Kory Vogt MD Unavailable Margarita Davidson RN Unavailable [email or web address] Encounter Details Date Type Department Care Team (Late st Contact Info) Description 08/21/2022 12:20 PM [facility] Hospital Encounter [facility] [address] [place] [address] [phone] Juliana Troy, [address], [email or web address] [address] [place] [address] [email or web address] Social History Tobacco Use Types Packs/Day Years [...] 9:27 AM EDT Shilo Miller RN * [place] Suicide Severity Rating Scale (Screener/Recent Self-Report) Question [...] Info) Description 04/08/2025 Procedure Pass Echo Lab [address] [place] [address] 07/30/2025 10:45 AM EST Office Visit [address] [place] [address] Harris Lennon MD 22 [facility], [address] [place] [address] 09/09/2025 11:15 AM EST Appointment [facility] [address] [place] [address] Stacie Gruber PA-C [address] [place] [address] 09/27/2025 10:40 AM EST Office Visit [facility] [address] [place] [address] 3rd Floor, [address] [place] [address] Davidson Gunter MD [address] [place] [address], [address] [place] [address] 02/14/2026 10:10 AM EDT Office Visit [facility] [address] [place] [address] [place] [address] Talon Seth DO [address] [place] [address] documented as of this encounter Procedures Procedure [...] report originally createdby Selena Franklin. Juliana Troy [facility] IM XR CHEST Final Result documented [...] documented as of this encounter Care Teams Filling Station Equipment Mechanic Relationship Specialty Start Date End Date Harris Lennon MD [address] [place] [address], [address] [place] [address] [email or web address] PCP - General Internal Medicine 01/16/21 Kory Vogt MD [address] [place] [address] [email or web address] Gastroenterology 10/07/21 Margarita Davidson RN [address] [place] [phone] [email or web address] Motor Equipment Commanding OfficerConsumer Marketing Analyst 07/01/22 documented as of this encounter Additional Source Comments The information contained in this document represents components of the legal health record. It is not the complete legal health record.[facility]
--- NOTE | 2025-05-21 10:56 | MHC.OFFVISCO ---
Intake Intake Visit Reasons: Anticoagulation Allergies memantine Allergy (Severe, Verified 05/21/25 10:53) RAGE nitrofurantoin Allergy (Intermediate, Verified 05/21/25 10:53) RASH oseltamivir (From Tamiflu) Allergy (Intermediate, Verified 05/21/25 10:53) RASH oxycodone (From PERCOCET) Allergy (Unknown, Verified 05/21/25 10:53) UNKNOWN Penicillins (PENICILLINS) Allergy (Unknown, Verified 05/21/25 10:53) UNKNOWN Sulfa (Sulfonamide Antibiotics) (SULFA (SULFONAMIDE ANTIBIOTICS)) Allergy (Unknown, Verified 05/21/25 10:53) UNKNOWN Medication List - Last Reconciled 05/21/25 by Criselda Marshall RN acetaminophen (Tylenol Extra Strength) 1,000 mg (2 x 500 mg) PO QID PRN albuterol sulfate 90 mcg/actuation 2 puffs inhalation Q4-6H PRN alendronate 70 mg PO QWEEK ascorbic acid (vitamin C) (Vitamin C) 500 mg PO TID azithromycin 500 mg PO ONCE PRN biotin 5,000 mcg PO DAILY calcium carbonate-vitamin D3 600 mg-12.5 mcg (500 unit) (Calcium with Vit D3) calcium 1200, vit d 25mcg cetirizine 10 mg PO DAILY PRN Held on 12/29/23. Instructions: Doctor's Order cholecalciferol (vitamin D3) 250 McG DAILY PO; clotrimazole-betamethasone 1-0.05 % 1 appl topical BID Held on 12/29/23. Instructions: Doctor's Order cranberry fruit concentrate (Azo Cranberry) PO BID docusate sodium 100 mg PO BID estradiol 0.01%(0.1mg/gram) grams vaginal 2XW ezetimibe 10 mg PO DAILY Held on 12/29/23. Instructions: Doctor's Order fluticasone propion-salmeterol 500-50 mcg/dose (Advair Diskus) 1 inh inhalation BID inhalational spacing device ([facility] Rylee [facility] spacer) As directed losartan 25 mg PO DAILY magnesium oxide 500 mg PO DAILY mecobalamin (vitamin B12) mcg PO DAILY methenamine hippurate 1 g PO BID metoprolol succinate ER 75 mg PO DAILY mirtazapine 7.5 mg PO BEDTIME opygepsh-tgm-inlw-FA-vit K-lut (Multivitamin Women 50 Plus) PO psyllium husk (Metamucil) 0.4 grams PO DAILY Saccharomyces boulardii (Daily Probiotic (S. boulardii)) PO simethicone (Gas Relief (simethicone)) PO topiramate 50 mg PO DAILY Held on 12/29/23. Instructions: Doctor's Order vibegron (Gemtesa) 75 mg PO DAILY warfarin See Protocol 7.5mg x2days/ 5mg x5days; Nursing Note Pt to ACS with use of cane accompanied by INR: 3.2?out of therapeutic range of 2-3 Medications and supplements reviewed Patient status: feels well Medications or supplements: no changes Diet: usual diet for pt Denies any signs and symptoms of bleeding or clotting or unusual bruising Bleeding, bruising, clotting discussed Nutritional guidance given: to have a serving of greens today. Pt and state she will have spinach today. Dose: 2.5mg X 4 days and 5mg X 3 days (M/W/F) F/U INR Date: 3 weeks?? Patient and verbalizing understanding of instructions given. Coding Level of Care Code Est Patient Level 1 Diagnoses Current use of anticoagulant therapy Z79.01 Assessment & Plan Assessment & Plan (1) Current use of anticoagulant therapy: Code(s): Z79.01 - FDC (current) use of anticoagulants Category: Medical
[2025-05-21 10:58] LABS: Prothrombin Time Whole Bld POC 39.0 sec (11.1-13.5); ~PT, ~INR - Anti Coag Clinic 3.2 (0.9-1.1)
--- OUTSIDE RECORDS SUMMARY | 2025-05-21 12:45 | XMS_ITS | Encounter Summary ---
Author Organization [facility] Address [address] [place] [address] Phone Care Team Providers Care Well Digger Name Role Phone Harris Lennon MD Primary Care Provider [phone] Kory Vogt MD Unavailable Harris Lennon MD Unavailable [phone] Margarita Davidson RN Unavailable [email or web address] Jyoti Aviles OT Unavailable [phone] Encounter Details Date Type Department Care Team (Late st Contact Info) Description 08/02/2022 Procedure Pass [address] [address] Social History Tobacco Use Types Packs/Day Years [...] Info) Description 04/08/2025 Procedure Pass Echo Lab [address] [place] [address] 07/30/2025 10:45 AM EST Office Visit [facility] [address] [place] [address] [place] [address] Harris Lennon MD [address] [place] [address], [address] [place] [address] 09/09/2025 11:15 AM EST Appointment Echo Lab [address] [place] [address] Stacie Gruber PA-C [address] [place] [address] 09/27/2025 10:40 AM EST Office Visit [facility] [address] [place] [address] [address]rd Floor, [address] [place] [address] Davidson Gunter MD [address] [place] [address], [address] [place] [address] 02/14/2026 10:10 AM EDT Office Visit [facility] [address] [place] [address] [place] [address] Talon Seth DO [address] [place] [address] documented as of this encounter Visit Diagnoses [...] documented as of this encounter Care Teams Well Digger Relationship Specialty Start Date End Date Harris Lennon MD [address] [place] [address], [address] [place] [address] PCP - General Internal Medicine 01/16/21 Kory Vogt MD [address] [place] [address] Gastroenterology 10/07/21 Harris Lennon MD [address] [place] [address], [address] [place] [address] Insurance Assigned Provider 12/17/23 Margarita Davidson RN [address] [place] [address], [address] [place] [address] [email or web address] iCMP Crisis SpecialistAd Trafficker 07/01/22 02/17/25 Jyoti Aviles, OT [address] [place] [address] [email or web address] Transitions Crisis SpecialistDungeon Master Therapy 12/12/2312/14/23 documented as of this encounter Additional Source Comments The information contained in this document represents components of the legal health record. It is not the complete legal health record.[facility]
--- OUTSIDE RECORDS SUMMARY | 2025-05-21 12:47 | XMS_ITS | Encounter Summary ---
Author Organization [facility] Address [address] [place] [address] Phone Care Team Providers Care Sack Cleaner Name Role Phone Xuan Ferraro DO Unavailable [phone] Harris Lennon MD Primary Care Provider [phone] Kory Vogt MD Unavailable Xuan Ferraro DO Unavailable [phone] Harris Lennon MD Unavailable [phone] Margarita Davidson RN Unavailable [email or web address] Margarita Davidson RN Unavailable [email or web address] Jyoti Aviles OT Unavailable [phone] Reason for Referral * MRI/CAT Scan - Closed Specialty Diagnoses / Procedures Referred By Contac t Referred To Contact Radiology Diagnoses RLQ abdominal pain Weight loss, abnormal Procedures CT Abdomen/Pelvis Javier Chauhan MD Phone: tel: fax: [email or web address] Referral ID Status Reason Start Date Expiration Date Visits Re quested Visits Authorized [id number] Closed 04/23/2021 04/23/2022 1 1 Encounter Details Date Type Department Care Team (Latest Contact Info) Description 04/23/2021 Transcribe Orders Virtual Department [address] [place] [address] [place] [address] Javier Chauhan MD [address] [place] [address] [email or web address] RLQ abdominal pain (Primary Dx); Weight loss, abnormal Social History Tobacco Use Types Packs/Day Years Used Date Smoking Tobacco: Former Cigarettes Q uit: 1971 Smokeless Tobacco: Former Quit: 1967 Alcohol Use Standard Drinks/Week Comments No 0 [...] Info) Description 04/08/2025 Procedure Pass Echo Lab [address] [place] [address] 07/30/2025 10:45 AM EST Office Visit [facility] [place] [facility] [address] [place] [address] [place] [address] Harris Lennon MD [address] [place] [address], [address] [place] [address] 09/09/2025 11:15 AM EST Appointment Echo Lab [address] [place] [address] Stacie Gruber PA-C [address] [place] [address] 09/27/2025 10:40 AM EST Office Visit [facility] [address] [place] [address] 3rd Floor, [address] [place] [address] Davidson Gunter MD [address] [place] [address], [address] [place] [address] 02/14/2026 10:10 AM EDT Office Visit [facility] [address] [place] [address] Rolo Talon, DO [address] [place] [address] [email or web address] documented as of this encounter Results * CT ABDOMEN/PELVIS WITH CONTRAST (05/11/2021 2:32 PM EDT) Anatomical Region Laterality Modality Abdomen, Pelvis Computed Tomogra phy 05/11/2021 2:38 PM EDT Impressions 05/11/2021 2:51 PM EDT 1.Multiple small gallstones. Otherwise unremarkable gallbladder. 2.No acute findings in abdomen/pelvis. 3.Chronic aortic dissection extending to the left common iliac artery. Narrative 05/11/2021 2:[address] ABDOMEN/PELVIS WITH CONTRAST TECHNIQUE: CT of the abdomen and pelvis WITH intravenous contrast. COMPARISON: CT chest/abdomen/pelvis on December 10, 2016 FINDINGS: LOWER THORAX: No confluent lung consolidation. No pleural effusion. HEPATOBILIARY: No focal hepatic lesions. No biliary ductal dilatation. Multiple small gallstones within nondistended gallbladder. SPLEEN: No splenomegaly. Incompletely characterized 0.5 cm hypodense lesion in the spleen (4:11). PANCREAS: No focal masses or ductal dilatation. ADRENALS: No adrenal nodules. KIDNEYS/URETERS: Simple appearing right upper pole cyst now measures 3.2 cm in size, increased from 2.2 cm in 2017. No hydronephrosis or solid mass lesions. No stones. PELVIC ORGANS/BLADDER: Unremarkable. PERITONEUM / RETROPERITONEUM: No free air or fluid. LYMPH NODES: No lymphadenopathy. VESSELS: Extensive severe atherosclerotic disease with mural plaques and calcifications along the tortuous abdominal aorta. Chronic dissection involving the included abdominal aorta and extending to the left common iliac artery similar to 2017. GI TRACT: No distention or wall thickening. BONES AND SOFT TISSUES: Moderate scoliosis associated with multilevel degenerative changes. Multiple hardware throughout the lumbar spine and right sacroiliac joint. No acute or suspicious bone abnormalities. Procedure Note Christelle Hernandez MD - 05/11/2021 CT ABDOMEN/PELVIS WITH CONTRAST TECHNIQUE: CT of the abdomen and pelvis WITH intravenous contrast. COMPARISON: CT chest/abdomen/pelvis on December 10, 2016 FINDINGS: LOWER THORAX: No confluent lung consolidation. No pleural effusion. HEPATOBILIARY: No focal hepatic lesions. No biliary ductal dilatation.Multiple small gallstones within nondistended gallbladder. SPLEEN: No splenomegaly. Incompletely characterized 0.5 cm hypodenselesion in the spleen (4:11). PANCREAS: No focal masses or ductal dilatation. ADRENALS: No adrenal nodules. KIDNEYS/URETERS: Simple appearing right upper pole cyst now measures 3.2cm in size, increased from 2.2 cm in 2017. No hydronephrosis or solid masslesions. No stones. PELVIC ORGANS/BLADDER: Unremarkable. PERITONEUM / RETROPERITONEUM: No free air or fluid. LYMPH NODES: No lymphadenopathy. VESSELS: Extensive severe atherosclerotic disease with mural plaques andcalcifications along the tortuous abdominal aorta. Chronic dissectioninvolving the included abdominal aorta and extending to the left commoniliac artery similar to 2017. GI TRACT: No distention or wall thickening. BONES AND SOFT TISSUES: Moderate scoliosis associated with multileveldegenerative changes. Multiple hardware throughout the lumbar spine andright sacroiliac joint. No acute or suspicious bone abnormalities. IMPRESSION: 1.Multiple small gallstones. Otherwise unremarkable gallbladder. 2.No acute findings in abdomen/pelvis. 3.Chronic aortic dissection extending to the left common iliac artery. us Javier Chauhan MD IMG CT ABD/PELVIS Final Resu lt documented in this encounter Visit Diagnoses Diagnosis RLQ abdominal pain- Primary Abdominal pain, right lower quadrant Weight loss, abnormal RLQ abdominal pain Abdominal pain, right lower quadrant Weight loss, abnormal documented in this encounter Additional Health Concerns Infection Onset Date Last Indicated Resolved Time CoV-Risk 08/21/2022 08/21/2022 09/01/2022 1:23 AM EST CoV-Risk 11/16/2023 11/16/2023 11/27/2023 1:21 AM EDT Assessment Noted Time PHQ-9 Depression Total Score: 15 018 2:17 PM EST PHQ-2 Depression Total Score: 0 10/20/19 11:13 AM EST documented as of this encounter Care Teams Sack Cleaner Relationship Specialty Start Date End Date Harris Lennon MD [address] [place] [address], [address] [place] [address] PCP - General Internal Medicine 01/16/21 Xuan Ferraro DO [address] [place] [address] [email or web address] Insurance Assigned Provider 06/09/19 10/06/21 Kory Vogt MD [address] [place] [address] [email or web address] 10/07/21 Xuan Ferraro DO [address] [place] [address] [email or web address] Insurance Assigned Provider 06/09/19 12/19/21 Harris Lennon MD [address] [place] [address], [address] [place] [address] Insurance Assigned Provider 12/17/23 Margarita Davidson RN [address] [place] [address], [address] [place] [address] [email or web address] iCMP Risk And Compliance Analytics Director 06/02/22 06/29/22 Margarita Davidson RN [address] [place] [address], [address] [place] [address] [email or web address] iCMP Risk And Compliance Analytics DirectorDecision Support Analyst 07/01/22 02/17/25 Jyoti Aviles, OT [address] [place] [address] [email or web address] Transitions Risk And Compliance Analytics DirectorShoemaking Cutter Therapy 12/12/2312/14/23 documented as of this encounter Additional Source Comments The information contained in this document represents components of the legal health record. It is not the complete legal health record.[facility]
--- OUTSIDE RECORDS SUMMARY | 2025-05-21 12:47 | XMS_ITS | Encounter Summary ---
Author Organization [facility] Address [address] [place] [address] Phone Care Team Providers Care Machine Cell Tuber Name Role Phone Xuan Ferraro DO Primary Care Provider + [phone] Xuan Ferraro DO Unavailable [phone] Harris Lennon MD Primary Care Provider Kory Vogt MD Unavailable Xuan Ferraro DO Unavailable [phone] Harris Lennon MD Unavailable [phone] Margarita Davidson RN Unavailable [email or web address] Margarita Davidson RN Unavailable [email or web address] Jyoti Aviles OT Unavailable [phone] Encounter Details Date Type Department Care Team (Late st Contact Info) Description 09/07/2019 Procedure Pass [facility] Admitting Dept Virtual Department [address] [place] [address] Social History Tobacco Use Types Packs/Day Years [...] Info) Description 04/08/2025 Procedure Pass Echo Lab [address] [place] [address] 07/30/2025 10:45 AM EST Office Visit [facility] [address] [place] [address] [place] [address] Harris Lennon MD [address] [place] [address], [address] [place] [address] 09/09/2025 11:15 AM EST Appointment Echo Lab [address] [place] [address] Stacie Gruber PA-C [address] [place] [address] 09/27/2025 10:40 AM EST Office Visit [facility] [address] [place] [address] 3rd Floor, [address] [place] [address] [place] Gunter MD [address] [place] [address], [address] [address] 02/14/2026 10:10 AM EDT Office Visit [facility] [address] [place] [address] [place] [address] Talon Seth DO [address] [place] [address] documented as of this encounter Visit Diagnoses Not on filedocumented in this encounter Additional Health Concerns Infection Onset Date Last Indicated Resolved Time CoV-Risk 08/21/2022 08/21/2022 09/01/2022 1:23 AM EST CoV-Risk 11/16/2023 11/16/202311/2611/27/2023 1:21 AM EDT Assessment Noted Time PHQ-9 Depression Total Score: 15 018 2:17 PM EST PHQ-2 Depression Total Score: 4 08/21/20 18 2:17 PM EST documented as of this encounter Care Teams Machine Cell Tuber Relationship Specialty Start Date End Date Xuan Ferraro DO [address] [place] [address] [email or web address] PCP - General 09/15/18 01/15/21 Harris Lennon MD [address] [place] [address], [address] [place] [address] [email or web address] PCP - General Internal Medicine 01/16/21 Xuan Ferraro DO [address] [place] [address] [email or web address] Insurance Assigned Provider 06/09/19 10/06/21 Kory Vogt MD [address] [place] [address] Gastroenterology 10/07/21 Xuan Ferraro DO [address] [place] [address] [email or web address] Insurance Assigned Provider 06/09/19 12/19/21 Harris Lennon MD [address] [place] [address], [address] [place] [address] [email or web address] Insurance Assigned Provider 12/17/23 Margarita Davidson RN [address] [place] [address], [address] [place] [address] [email or web address] iCMP Handcrew Foreman 06/02/22 06/29/22 Margarita Davidson, RN [address] [facility], [address] [place] [address] [email or web address] iCMP Handcrew ForemanAutomotive Engineer 07/01/22 02/17/25 Jyoti Aviles, OT [address] [place] [address] [email or web address] Transitions Handcrew ForemanClamper Therapy 12/12/2312/14/23 documented as of this encounter Additional Source Comments The information contained in this document represents components of the legal health record. It is not the complete legal health record.[facility]
--- OUTSIDE RECORDS SUMMARY | 2025-05-21 12:47 | XMS_ITS | Patient Health Record ---
Author Organization [facility] Address [address] [facility] [place] [address] Care Team Providers Care Poultry Dresser Name Role Phone Damien Lance Primary Care Provider Brianne Arcos Unavailable [phone] Allergies Allergen (clinical drug ingredient) Drug/Non Drug [...] Medicare National Govt Svcs Inc [address] [place] [address] [phone] [id number] Lindsey José Self - patient is the insured [employer] Blue Shield [address] [place] [address] [phone] [id number] Lindsey José Self - patient is the insured Medical (General) History Medical History History ICD Code osteoarthritis asthma Back,Hip,and Knee pain Broken bones Cholesterol Dementia Depression Heart disease Hypertension Neuropathy Reflux chronic sinusitis Measles Mumps Chicken pox Joint implants/screws Transfusions
--- OUTSIDE RECORDS SUMMARY | 2025-05-21 12:47 | XMS_ITS | Encounter Summary ---
Author Organization [facility] Address [address] [place] [address] Phone Care Team Providers Care Parimutuel Ticket Seller Name Role Phone Xuan Ferraro DO Primary Care Provider + [phone] Damien Lance MD Unavailable Xuan Ferraro DO Unavailable [phone] Harris Lennon MD Primary Care Provider + [phone] Kory Vogt MD Unavailable Xuan Ferraro DO Unavailable [phone] Harris Lennon MD Unavailable [phone] Margarita Davidson RN Unavailable [email or web address] Margarita Davidson RN Unavailable [email or web address] Jyoti Aviles OT Unavailable [phone] Encounter Details Date Type Department Care Team (Late st Contact Info) Description 11/29/2018 Procedure Pass [facility], [address] [address] Social History Tobacco Use Types Packs/Day Years [...] on file documented as of this encounter Last Filed Vital Signs Vital Sign Reading Time Taken Comments Blood Pressure - - Pulse - - Temperature - - Respiratory Rate - - Oxygen Saturation - - Inhaled Oxygen Concentration - - Weight 54 kg (119 lb) 11/30/2018 11:25 AM EDT Height 160 cm (5' 3 ) 11/30/2018 11:25 AM EDT Body Mass Index 21.08 11/30/2018 11:25 AM EDT documented in this encounter Plan of Treatment Upcoming Encounters Date Type Department Care Team (Late st Contact Info) Description 04/08/2025 Procedure Pass Echo Lab [address] [place] [address] 07/30/2025 10:45 AM EST Office Visit [facility] [address] [place] [address] [place] [address] Harris Lennon MD [address] [place] [address], [address] [place] [address] 09/09/2025 11:15 AM EST Appointment Echo Lab [address] [place] [address] Stacie Gruber PA-C [address] [place] [address] 09/27/2025 10:40 AM EST Office Visit [facility] [address] [place] [address] 3rd Floor, [address] [place] [address] Davidson Gunter MD [address] [place] [address], [address] [address] 02/14/2026 10:10 AM EDT Office Visit [facility] [address] [place] [address] [place] [address] Talon Seth DO [address] [place] [address] [email or web address] documented as of this encounter Visit Diagnoses [...] documented as of this encounter Care Teams Parimutuel Ticket Seller Relationship Specialty Start Date End Date Xuan Ferraro DO [address] [place] [address] [email or web address] PCP - General 09/15/18 01/15/21 Harris Lennon MD [address] [facility], [address] [place] [address] [email or web address] PCP - General Internal Medicine 01/16/21 Damien Lance MD [address] [facility] Floor 1 [place] [address] [email or web address] Insurance Assigned Provider 07/16/17 06/09/19 Xuan Ferraro DO [address] [place] [address] [email or web address] Insurance Assigned Provider 06/09/19 10/06/21 Kory Vogt MD [address] [place] [address] Gastroenterology 10/07/21 Xuan Ferraro DO 9 [place] [address] [email or web address] Insurance Assigned Provider 06/09/19 12/19/21 Harris Lennon MD [address] [place] [address], [address] [place] [address] [email or web address] Insurance Assigned Provider 12/17/23 Margarita Davidson RN [address] [place] [address], [address] [place] [address] [email or web address] iCMP Labeler 06/02/22 06/29/22 Margarita Davidson RN [address] [place] [address], [address] [place] [address] [email or web address] iCMP LabelerBarber Instructor 07/01/22 02/17/25 Jyoti Aviles, OT [address] [place] [address] [email or web address] Transitions LabelerDirector Of Group Sales Therapy 12/12/2312/14/23 documented as of this encounter Additional Source Comments The information contained in this document represents components of the legal health record. It is not the complete legal health record.[facility]
--- OUTSIDE RECORDS SUMMARY | 2025-05-21 12:47 | XMS_ITS | Encounter Summary ---
Author Organization [facility] Address [address] [place] [address] Phone Care Team Providers Care Vendor Analyst Name Role Phone Xuan Ferraro DO Primary Care Provider Xuan Ferraro DO Unavailable Harris Lennon MD Primary Care Provider + [phone] Kory Vogt MD Unavailable Xuan Ferraro DO Unavailable Harris Lennon MD Unavailable [phone] Margarita Davidson RN Unavailable [email or web address] Margarita Davidson RN Unavailable [email or web address] Jyoti Aviles OT Unavailable [phone] Encounter Details Date Type Department Care Team (Late st Contact Info) Description 11/08/2019 Ancillary Orders Non-Invasive Cardiology [address] [place] [address] Xuan Ferraro DO [address] [place] [address] [email or web address] Other chest pain Social History Tobacco Use Types Packs/Day Years [...] Info) Description 04/08/2025 Procedure Pass Echo Lab [address] [place] [address] 07/30/2025 10:45 AM EST Office Visit [facility] [address] [place] [address] [place] [address] Harris Lennon MD [address] [place] [address], [address] [place] [address] 09/09/2025 11:15 AM EST Appointment Echo Lab [address] [place] [address] Stacie Gruber PA-C [address] [place] [address] 09/27/2025 10:40 AM EST Office Visit [facility] [address] [place] [address] 3rd Floor, [address] [place] [address] Davidson Gunter MD [address] [place] [address], [address] [place] [address] 02/14/2026 10:10 AM EDT Office Visit [facility] [address] [place] [address] [place] [address] Talon Seth DO [address] [place] [address] documented as of this encounter Results * NC Stress Result for Nuclear Stress Test (11/08/2019 10:14 AM EST) Max BP Systolic 158 mmHg [facility] Max BP Diastolic 70 mmHg [facility] Max HR 123 BPM [facility] Resting HR 78 BPM [facility] Resting BP Systolic 150 mmHg [facility] Resting BP Diastolic 72 mmHg [facility] Peak METS 2.3 METS [facility] Peak HR 118 BPM [facility] Peak BP Systolic 136 mmHg [facility] Peak BP Diastolic 76 mmHg [facility] Anatomical Region Laterality Modality Heart Other 11/08/2019 9:35 AM EST 11/08/2019 10:13 AM EST Narrative 11/08/2019 11:47 AM EST Response to Stress The patient exercised for minutes seconds, achieving 2.3 METS at peak exercise. Baseline blood pressure was 150/72 mmHg, and baseline heart rate was 78 bpm. Peak blood pressure was 136/76 mmHg. The patient achieved a peak heart rate of 118 bpm, which is% of their maximum predicted heart rate. [place] pressure product was [address]. REPORT: Patient exercised for 4:00 minutes on a modified Joaquin protocol achieving 2.3 METs and 84% MPHR (123 BPM). The test was terminated due to poor functional capacity. SUMMARY: 1. RESTING ECG: sinus rhythm HR 85 bpm with long first degree AV blockand non-specific ST T wave abnormalities due to LVH. 2. EXERCISE ECG: non-diagnostic due to abnormal baseline ECG. 3. SYMPTOMS: No chest pain or shoulder pain. 4. PHYSIOLOGY: Appropriate exercise physiology. Resting heart rate of 78 bpm makeda to a max heart rate of 123 bpm, this represents 84% MPHR. Resting BP of 150/72 dropped to 136/76 at peak stress. Vital signs stable and returned to baseline prior to discharge from the lab. Achieved 2.3 METs consistent with poor functional capacity for age. 5. ARRHYTHMIA: frequent isolated PACs and PVCs of at least 2 different morphologies, and one ventricular triplet. CONCLUSION: Non-diagnostic ECG portion of exercise nuclear stress test due to abnormal baseline ECG, without symptoms concerning for angina. BP dropped with exercise. Poor functional capacity due to chronic back pain and acute pneumonia. Nuclear images and report to follow. Jennifer Cadet PA-C with Dr. Garcia . us Xuan Ferraro DO CV [place] CARDIAC Final Resu lt documented in this encounter Visit Diagnoses Diagnosis Other chest pain Other chest pain documented in this encounter Additional Health Concerns Infection Onset Date Last Indicated Resolved Time CoV-Risk 08/21/2022 08/21/2022 09/01/2022 1:23 AM EST CoV-Risk 11/16/2023 11/16/2023 11/27/2023 1:21 AM EDT Assessment Noted Time PHQ-9 Depression Total Score: 15 018 2:17 PM EST PHQ-2 Depression Total Score: 4 08/21/20 18 2:17 PM EST documented as of this encounter Care Teams Vendor Analyst Relationship Specialty Start Date End Date Xuan Ferraro DO [address] [place] [address] [email or web address] PCP - General 09/15/18 01/15/21 Harris Lennon MD [address] [place], [place] [address] [place] [address] [email or web address] PCP - General Internal Medicine 01/16/21 Xuan Ferraro DO [address] [place] [address] [email or web address] Insurance Assigned Provider 06/09/19 10/06/21 Kory Vogt MD [address] [place] [address] [email or web address] Gastroenterology 10/07/21 Xuan Ferraro DO [address] [place] [email or web address] Insurance Assigned Provider 06/09/19 12/19/21 Harris Lennon MD [address] [place], [place] [address] [place] [address] [email or web address] Insurance Assigned Provider 12/17/23 Margarita Davidson RN [address] [place] [address], [address] [place] [address] [email or web address] Synthetic Plasterer 06/02/22 06/29/22 Margarita Davidson RN [address] [place] [address], [address] [place] [address] [email or web address] iCMP Synthetic PlastererAdministrative Resources Associate 07/01/22 02/17/25 Jyoti Aviles, OT [address] [place] [address] [email or web address] Transitions Synthetic PlastererImage Processing Engineer Therapy 12/12/2312/14/23 documented as of this encounter Additional Source Comments The information contained in this document represents components of the legal health record. It is not the complete legal health record.[facility]
--- OUTSIDE RECORDS SUMMARY | 2025-05-21 12:47 | XMS_ITS | Encounter Summary ---
Author Organization [facility] Address [address] [place] [address] Phone Care Team Providers Care Audiology Doctor Name Role Phone Harris Lennon MD Primary Care Provider [phone] Kory Vogt MD Unavailable Harris Lennon MD Unavailable [phone] Encounter Details Date Type Department Care Team (Late st Contact Info) Description 05/21/2025 Orders Only [facility] [address] [place] [address] Provider, MD Gary [address] [place] [address] Social History Tobacco Use Types Packs/Day Years [...] Info) Description 04/08/2025 Procedure Pass Echo Lab [address] [place] [address] 07/30/2025 10:45 AM EST Office Visit [facility] [address] [place] [address] [place] [address] Harris Lennon MD [address] [place] [address], [address] [place] [address] 09/09/2025 11:15 AM EST Appointment Echo Lab [address] [place] [address] Stacie Gruber PA-C [address] [place] [address] 09/27/2025 10:40 AM EST Office Visit [facility] [address] [place] [address] 3rd Floor, [address] [place] [address] Davidson Gunter MD [address] [place] [address], [address] [place] [address] 02/14/2026 10:10 AM EDT Office Visit [facility] [place] [address] Talon Seth DO [address] [place] [address] [email or web address] documented as of this encounter Procedures Procedure Name Priority Date/Time Associated Diagnosis Comments DIABETES EYE EXAM FOR RESULT ENTRY ONLY Routine 05/01/2025 10:19 AM EDT documented in this encounter Results * HM DIABETES EYE EXAM FOR RESULT ENTRY ONLY (05/01/2025 10:19 AM EDT) us Historical Provider HEALTH MAINTENANCE Edited Result - Final documented in this encounter Visit Diagnoses Not on filedocumented in this encounter Additional Health Concerns Assessment Noted Time PHQ-9 Depression Total Score: 15 018 2:17 PM EST PHQ-2 Depression Total Score: 0 09/06/20 24 10:43 AM EST documented as of this encounter Care Teams Audiology Doctor Relationship Specialty Start Date End Date Harris Lennon MD [address] [place] [address], [address] [place] [address] PCP - General Internal Medicine 01/16/21 Kory Vogt MD [address] [place] [address] Gastroenterology 10/07/21 Harris Lennon MD [address] [place] [address], [address] [place] [address] Insurance Assigned Provider 12/17/23 documented as of this encounter Additional Source Comments The information contained in this document represents components of the legal health record. It is not the complete legal health record.[facility]
--- OUTSIDE RECORDS SUMMARY | 2025-05-21 12:47 | XMS_ITS | Encounter Summary ---
Author Organization [facility] Address [address] [place] [address] Phone Care Team Providers Care Shaft Sinker Name Role Phone Damien Lance MD Primary Care Provide r Xuan Ferraro DO Primary Care Provider + [phone] Damien Lance MD Unavailable [phone] Xuan Ferraro DO Unavailable [phone] Harris Lennon MD Primary Care Provider + [phone] Kory Vogt MD Unavailable Xuan Ferraro DO Unavailable [phone] Harris Lennon MD Unavailable [phone] Margarita Davidson RN Unavailable [email or web address] Margarita Davidson RN Unavailable [email or web address] Jyoti Aviles OT Unavailable [phone] Encounter Details Date Type Department Care Team (Latest Contact Info) Description 02/13/2018 Transcribe Orders [facility] Laboratory [address] [id number] Javier Chauhan MD [address] [id number] [email or web address] Gastroesophageal reflux disease without esophagitis (Primary Dx); Hx of colonic polyps; Change in bowel habits; Diarrhea, unspecified type Social History Tobacco Use Types Packs/Day Years Used Date Smoking Tobacco: Former Cigarettes Q uit: 1971 Smokeless Tobacco: Former Quit: 1967 Alcohol Use Standard Drinks/Week Comments No 0 (1 standard drink = 0.6 oz pur e alcohol) Comments Unknown Sex and Gender Information Value [...] Info) Description 04/08/2025 Procedure Pass Echo Lab [address] [place] [address] 07/30/2025 10:45 AM EST Office Visit [facility] Medicine [address] [place] [address] [place] [address] Harris Lennon MD [address] [place] [address], [address] [place] [address] 09/09/2025 11:15 AM EST Appointment Echo Lab [address] [place] [address] Stacie Gruber, PACony [address] [place] [address] 09/27/2025 10:40 AM EST Office Visit [facility] [address] [place] [address] 3rd Floor, [address] [place] [address] Davidson Gunter MD [address] [place] [address], [address] [address] 02/14/2026 10:10 AM EDT Office Visit [facility] [address] [place] [address] [place] [address] Talon Seth DO 22 [place] [address] [email or web address] documented as of this encounter Results * (ABNORMAL) C-Reactive Protein (02/13/2018 2:31 PM EDT) C REACTIVE PROTEIN 6.4(H) 0.0 - 4.0 mg/L [facility] Comment:New Reference Range and Measuring Units effective 01/25/18. Blood 02/13/2018 2:31 PM EDT 02/13/2018 2:36 PM EDT us Javier Chauhan MD LAB BLOOD ORDERABLES Final R esult [facility] [address] [place] [address] * (ABNORMAL) Comprehensive metabolic panel (02/13/2018 2:31 PM EDT) Pathologist [facility] SODIUM 133 133 - 146 mmol/L [facility] POTASSIUM 5.6(H) 3.3 - 5.1 mmol/L [facility] CHLORIDE 94(L) 96 - 108 mmol/L [facility] CO2 27 21 - 35 mmol/L [facility] BUN 14 6 - 19 mg/dL [facility] CREATININE 0.60 0.5 - 1.5 mg/dL [facility] GLUCOSE 108(H) 70 - 99 mg/dL [facility] ALBUMIN 4.2 3.9 - 4.8 g/dL [facility] TOTAL PROTEIN 6.6 6.5 - 8.0 g/dL [facility] CALCIUM 9.3 8.4 - 10.3 mg/dL [facility] ALKALINE PHOSPHATASE 43 39 - 117 U/L [facility] TOTAL BILIRUBIN 0.2 0.0 - 1.2 mg/dL [facility] AST 20 0 - 37 U/L [facility] ALT 14 0 - 40 U/L [facility] GLOBULIN 2.4 1 - 4.8 g/dL [facility] EGFR 90 >59 mL/min/1.7 3m2 [facility] Comment:If patient is black, multiply result by 1.159. The eGFR calculation has changed from the MDRD equation to the CKD-EPI equation as of November 15, 2017. ANION GAP 18 10 - 20 mmol/L [facility] Blood 02/13/2018 2:31 PM EDT 02/13/2018 2:36 PM EDT us Javier Chauhan MD LAB BLOOD ORDERABLES Final R esult Performing Organization Address City/[facility]/ZIP Co de Phone Number [address] [address] * Tissue transglutaminase IgA (02/13/2018 2:31 PM EDT) TTG IGA ANTIBODY <1.2 <4.0 (Negative) U/mL [facility] DPT OF LAB MED AND PAT+ Blood 02/13/2018 2:31 PM EDT 02/13/2018 2:37 PM EDT us Javier Chauhan MD LAB BLOOD ORDERABLES Final R esult Performing Organization Address City/[facility]/ZIP Co de Phone Number [facility] DPT OF LAB MED AND PAT+ [address] [place] [address] * Immunoglobulin A (02/13/2018 2:31 PM EDT) IgA 70 70 - 400 mg/dL [facility] Blood 02/13/2018 2:31 PM EDT 02/13/2018 2:36 PM EDT Javier Chauhan MD LAB BLOOD ORDERABLES Final R esult Performing Organization Address City/[facility]/ZIP Co de Phone Number [address] [address] * Gliadin deamidated antibody, IgG/IgA (02/13/2018 2:31 PM EDT) Gliadin Ab, IGA <10.0 <20.0 (Negative) U [facility] DPT OF LAB MED AND PAT+ GLIADIN AB IGG <10.0 <20.0 (Negative) U [facility] DPT OF LAB MED AND PAT+ Blood 02/13/2018 2:31 PM EDT 02/13/2018 2:37 PM EDT us Javier Chauhan MD LAB BLOOD ORDERABLES Final R esult [facility] DPT OF LAB MED AND PAT+ [address] [place] [address] * (ABNORMAL) CBC and differential (02/13/2018 2:31 PM EDT) WBC 8.84 3.40 - 11.20 K/uL [facility] RBC 4.07 3.80 - 4.80 M/uL [facility] HGB 12.3 12.0 - 15.0 g/dL [facility] HCT 38.2 36.0 - 46.0 % [facility] PLT 333 130 - 400 K/uL [facility] MCV 93.9 79.0 - 98.0 fL [facility] MCH 30.2 27.0 - 34.8 pg [facility] MCHC 32.2 31.5 - 36.0 g/dL [facility] RDW 14.4 10.8 - 14.6 % [facility] MPV 9.8 9.4 - 12.4 fl [facility] NRBC 0.00 /100 WBCs [facility] ABSOLUTE NRBC 0.00 K/uL [facility] DIFF METHOD Auto [facility] NEUTS 79.6(H) 45.30 - 77.70 % [facility] LYMPHS 12.6 12.30 - 39.70 % [facility] MONOS 6.2 4.10 - 12.80 % [facility] EOS 0.8 0 - 7.2 % [facility] BASOS 0.3 0 - 2.80 % [facility] Granulocytes, immature (%) 0.5 0.0 - 0.9 % [facility] ABSOLUTE NEUTS 7.04 1.40 - 7.70 K/uL [facility] ABSOLUTE LYMPHS 1.11 0.60 - 3.20 K/uL [facility] ABSOLUTE MONOS 0.55 0.11 - 0.59 K/uL [facility] ABSOLUTE EOS 0.07 0.01 - 0.50 K/uL [facility] ABSOLUTE BASOS 0.03 0.00 - 0.08 K/uL [facility] Granulocytes, immature 0.04 0.00 - 0.05 K/uL [facility] Blood 02/13/2018 2:31 PM EDT 02/13/2018 2:36 PM EDT us Javier Chauhan MD LAB BLOOD ORDERABLES Final R esult [facility] [address] [place] [address] documented in this encounter Visit Diagnoses Diagnosis Gastroesophageal reflux disease without esophagitis- Primary Esophageal reflux Hx of colonic polyps Personal history of colonic polyps Change in bowel habits Other symptoms involving digestive system Diarrhea, unspecified type documented in this encounter Additional Health Concerns Infection Onset Date Last Indicated Resolved Time CoV-Risk 08/21/2022 08/21/2022 09/01/2022 1:23 AM EST CoV-Risk 11/16/2023 11/16/2023 11/27/2023 1:21 AM EDT Assessment Noted Time PHQ-9 Depression Total Score: 18 017 2:07 PM EST PHQ-2 Depression Total Score: 6 08/26/20 17 2:07 PM EST documented as of this encounter Care Teams Shaft Sinker Relationship Specialty Start Date End Date Damien Lance MD [email or web address] PCP - General Internal Medicine 07/18/17 09/14/18 Xuan Ferraro DO [address] [place] [address] [email or web address] PCP - General 09/15/18 01/15/21 Harris Lennon MD [address] [place] [address], [address] [place] [address] [email or web address] PCP - General Internal Medicine 01/16/21 Damien Lance MD [address] [place] [address] Floor 1 [place] [address] [email or web address] Insurance Assigned Provider 07/16/17 06/09/19 Xuan Ferraro DO [address] [place] [address] [email or web address] Insurance Assigned Provider 06/09/19 10/06/21 Kory Vogt MD [address] [place] [address] [email or web address] Gastroenterology 10/07/21 Xuan Ferraro DO [address] [place] [address] [email or web address] Insurance Assigned Provider 06/09/19 12/19/21 Harris Lennon MD [address] [place] [address], [address] [place] [address] [email or web address] Insurance Assigned Provider 12/17/23 Margarita Davidson RN [address] [place] [address], [address] [place] [address] [email or web address] [employer] 06/02/22 06/29/22 Margarita Davidson RN [address] [place] [address], [address] [address] [email or web address] [employer] Membership AdvisorsMedical Orderly 07/01/22 02/17/25 Jyoti Aviles, OT [address] [place] [address] [email or web address] Transitions [employer] Membership AdvisorsKayaking Instructor Therapy 12/12/2312/14/23 documented as of this encounter Additional Source Comments The information contained in this document represents components of the legal health record. It is not the complete legal health record.[facility]
--- OUTSIDE RECORDS SUMMARY | 2025-05-21 12:47 | XMS_ITS | Encounter Summary ---
Author Organization [facility] Address [address] [place] [address] Phone Care Team Providers Care Filer And Sander Name Role Phone Xuan Ferraro DO Primary Care Provider Damien Lance MD Unavailable Xuan Ferraro DO Unavailable [phone] Harris Lennon MD Primary Care Provider + [phone] Kory Vogt MD Unavailable Xuan Ferraro DO Unavailable [phone] Harris Lennon MD Unavailable [phone] Margarita Davidson RN Unavailable [email or web address] Margarita Davidson RN Unavailable [email or web address] Jyoti Aviles OT Unavailable [phone] Encounter Details Date Type Department Care Team (Late st Contact Info) Description 02/13/2019 Ancillary Orders [facility] [address] [place] [address] Xuan Ferraro DO [address] [place] [address] [email or web address] Breast screening Social History Tobacco Use Types Packs/Day Years [...] Info) Description 04/08/2025 Procedure Pass Echo Lab [address] [place] [address] 07/30/2025 10:45 AM EST Office Visit [facility] [place] [facility] [address] [place] [address] [place] [address] Harris Lennon MD [address] [place] [address], [address] [place] [address] 09/09/2025 11:15 AM EST Appointment Echo Lab [address] [place] [address] Stacie Gruber PA-C [address] [place] [address] 09/27/2025 10:40 AM EST Office Visit [facility] [address] [place] [address] 3rd Floor, [address] [place] [address] Davidson Gunter MD [address] [place] [address], [address] [place] [address] 02/14/2026 10:10 AM EDT Office Visit [facility] [address] [place] [address] [place] [address] Talon Seth DO [address] [place] [address] documented as of this encounter Results * BI MAMMOGRAM SCREENING WITH TOMOSYNTHESIS WITH CAD (BILATERAL) (05/15/2019 1:39 PM EDT) Anatomical Region Laterality Modality Breast Left, Breast Right, Breast Bilateral Bila teral Mammography 05/15/2019 1:55 PM EDT Impressions 05/15/2019 1:58 PM EDT Stable appearance relative to prior imaging. No findings suggestive of malignancy are seen. BI-RADS CATEGORY: 2 - Benign finding. DENSITY: There are scattered fibroglandular densities. POS - [id number] Narrative 05/15/2019 1:58 PM EDT Full-field digital mammography is obtained with computer-aided detection. Comparison with prior imaging from 05/11/2018 is made with older imaging dating back as far as 06/19/2013 also reviewed. There is scattered fibroglandular density evident in the breasts. In addition to 2-D C view imaging, tomosynthesis images are obtained in two projections of each breast. Minor bilateral vascular calcifications are again evident.. No dominant soft tissue mass of concern, suspicious cluster of calcifications, significant interval skin changes, or architectural distortion is identified. Procedure Note Robin Joy MD - 05/15/2019 Full-field digital mammography is obtained with computer-aided detection.Comparison with prior imaging from 05/11/2018 is made with older imagingdating back as far as 06/19/2013 also reviewed. There is scattered fibroglandular density evident in the breasts. Inaddition to 2-D C view imaging, tomosynthesis images are obtained in twoprojections of each breast. Minor bilateral vascular calcifications are again evident.. No dominantsoft tissue mass of concern, suspicious cluster of calcifications,significant interval skin changes, or architectural distortion isidentified. IMPRESSION: Stable appearance relative to prior imaging. No findings suggestive ofmalignancy are seen. BI-RADS CATEGORY: 2 - Benign finding. DENSITY: There are scattered fibroglandular densities. POS - [id number] us Xuan Ferraro DO IMG MG EXAMS Final Resu lt documented in this encounter Visit Diagnoses Diagnosis Breast screening Breast screening, unspecified Breast screening Breast screening, unspecified documented in this encounter Additional Health Concerns Infection Onset Date Last Indicated Resolved Time CoV-Risk 08/21/2022 08/21/2022 09/01/2022 1:23 AM EST CoV-Risk 11/16/2023 11/16/2023 11/27/2023 1:21 AM EDT Assessment Noted Time PHQ-9 Depression Total Score: 15 018 2:17 PM EST PHQ-2 Depression Total Score: 4 08/21/20 18 2:17 PM EST documented as of this encounter Care Teams Filer And Sander Relationship Specialty Start Date End Date Xuan Ferraro DO [address] [place] [address] [email or web address] PCP - General 09/15/18 01/15/21 Harris Lennon MD [address] [facility] [address], [address] [place] [address] PCP - General Internal Medicine 01/16/21 Damien Lance MD [address] [facility] Floor 1 [place] [address] [email or web address] Insurance Assigned Provider 07/16/17 06/09/19 Xuan Ferraro DO [address] [place] [address] [facility] Insurance Assigned Provider 06/09/19 10/06/21 Kory Vogt MD [address] [place] [address] [email or web address] Gastroenterology 10/07/21 Xuan Ferraro DO [address] [place] [address] [email or web address] Insurance Assigned Provider 06/09/19 12/19/21 Harris Lennon MD [address] [place] [address], [address] [place] [address] Insurance Assigned Provider 12/17/23 Margarita Davidson RN [address] [place] [address], [address] [place] [address] [email or web address] iCMP Power Plant Engineer 06/02/22 06/29/22 Margarita Davidson RN [address] [place] [address], [address] [place] [address] [email or web address] iCMP Power Plant EngineerNeedle Bar Molder 07/01/22 02/17/25 Jyoti Aviles, OT [address] [place] [address] Transitions Power Plant EngineerBroom Worker Therapy 12/12/2312/14/23 documented as of this encounter Additional Source Comments The information contained in this document represents components of the legal health record. It is not the complete legal health record.[facility]
--- OUTSIDE RECORDS SUMMARY | 2025-05-21 12:48 | XMS_ITS | Encounter Summary ---
Author Organization [facility] Address [address] [place] [address] Phone Care Team Providers Care Planisher Name Role Phone Xuan Ferraro DO Unavailable [phone] Harris Lennon MD Primary Care Provider [phone] Kory Vogt MD Unavailable Xuan Ferraro DO Unavailable [phone] Harris Lennon MD Unavailable [phone] Margarita Davidson RN Unavailable [email or web address] Margarita Davidson RN Unavailable [email or web address] Jyoti Aviles OT Unavailable [phone] Encounter Details Date Type Department Care Team (Late st Contact Info) Description 04/23/2021 Procedure Pass [facility], Ct Scan - [address] [address] Social History Tobacco Use Types Packs/Day Years [...] Info) Description 04/08/2025 Procedure Pass Echo Lab [address] [place] [address] 07/30/2025 10:45 AM EST Office Visit [facility] Medicine [address] [place] [address] [place] [address] Harris Lennon MD [address] [place] [address], [address] [place] [address] 09/09/2025 11:15 AM EST Appointment Echo Lab [address] [place] [address] Stacie Gruber PA-C [address] [place] [address] 09/27/2025 10:40 AM EST Office Visit [facility] [address] [place] [address] 3rd Floor, [address] [place] [address] Davidson Gunter MD [address] [place] [address], [address] [place] [address] 02/14/2026 10:10 AM EDT Office Visit [facility] [address] [place] [address] [place] [address] Talon Seth DO [address] [place] [address] documented as of this encounter Visit Diagnoses Not on filedocumented in this encounter Additional Health Concerns Infection Onset Date Last Indicated Resolved Time CoV-Risk 08/21/2022 08/21/2022 09/01/2022 1:23 AM EST CoV-Risk 11/16/2023 11/16/2023 11/27/2023 1:21 AM EDT Assessment Noted Time PHQ-9 Depression Total Score: 15 018 2:17 PM EST PHQ-2 Depression Total Score: 0 10/20/19 21 11:13 AM EST documented as of this encounter Care Teams Planisher Relationship Specialty Start Date End Date Harris Lennon MD [address] [place] [address], [address] [place] [address] [email or web address] PCP - General Internal Medicine 01/16/21 Xuan Ferraro DO [address] [place] [address] [email or web address] Insurance Assigned Provider 06/09/19 10/06/21 Kory Vogt MD [address] [place] [address] [email or web address] Gastroenterology 10/07/21 Xuan Ferraro DO [address] [place] [address] [email or web address] Insurance Assigned Provider 06/09/19 12/19/21 Harris Lennon MD [address] [place] [address], [address] [place] [address] [email or web address] Insurance Assigned Provider 12/17/23 Margarita Davidson RN [address] [place] [address], [address] [place] [address] [email or web address] iCMP Color Checker 06/02/22 06/29/22 Margarita Davidson RN [address] [place] [address], [address] [place] [address] [email or web address] iCMP Color CheckerVascular Technician 07/01/22 02/17/25 Jyoti Aviles, OT [address] [place] [address] [email or web address] Transitions Color CheckerSenior Marketing Coordinator Therapy 12/12/2312/14/23 documented as of this encounter Additional Source Comments The information contained in this document represents components of the legal health record. It is not the complete legal health record.[facility]
--- OUTSIDE RECORDS SUMMARY | 2025-05-21 12:49 | XMS_ITS | Encounter Summary ---
Author Organization [facility] Address [address] [place] [address] Phone Care Team Providers Care Wholesale Manager Name Role Phone Xuan Ferraro DO Primary Care Provider + [phone] Xuan Ferraro DO Unavailable [phone] Harris Lennon MD Primary Care Provider [phone] Kory Vogt MD Unavailable Xuan Ferraro DO Unavailable [phone] Harris Lennon MD Unavailable [phone] Margarita Davidson RN Unavailable [email or web address] Margarita Davidson RN Unavailable [email or web address] Jyoti Aviles OT Unavailable [phone] Encounter Details Date Type Department Care Team (Late st Contact Info) Description 05/21/2020 Procedure Pass [facility], [address] [address] Social History Tobacco Use Types Packs/Day Years [...] Description 04/08/2025 Procedure Pass [facility] [address] [place] [address] 07/30/2025 10:45 AM EST Office Visit [facility] [address] [place] [address] [place] [address] Harris Lennon MD [address] [place] [address], [address] [place] [address] 09/09/2025 11:15 AM EST Appointment Echo Lab [address] [place] [address] Stacie Gruber PA-C [address] [place] [address] 09/27/2025 10:40 AM EST Office Visit [facility] [address] [place] [address] 3rd Floor, [address] [place] [address] Davidson Gunter MD [address] [place] [address], [address] [place] [address] 02/14/2026 10:10 AM EDT Office Visit [facility] [address] [place] [address] [place] [address] Talon Seth DO [address] [place] [address] documented as of this encounter Visit Diagnoses [...] documented as of this encounter Care Teams Wholesale Manager Relationship Specialty Start Date End Date Xuan Ferraro DO [address] [place] [address] [email or web address] PCP - General 09/15/18 01/15/21 Harris Lennon MD [address] [place] [address], [address] [place] [address] [email or web address] PCP - General Internal Medicine 01/16/21 Xuan Ferraro DO [address] [place] [address] [email or web address] Insurance Assigned Provider 06/09/19 10/06/21 Kory Vogt MD [address] [place] [address] Gastroenterology 10/07/21 Xuan Ferraro DO [address] [place] [address] [email or web address] Insurance Assigned Provider 06/09/19 12/19/21 Harris Lennon MD [address] [place] [address], [address] [place] [address] [email or web address] Insurance Assigned Provider 12/17/23 Margarita Davidson RN [address] [place] [address], [address] [place] [address] [email or web address] iCMP College Athletic Director 06/02/22 06/29/22 Margarita Davidson, RN 22 [facility], [address] [place] [address] [email or web address] [employer] College Athletic DirectorNarcotics And/Or Vice Detective 07/01/22 02/17/25 Jyoti Aviles, OT [address] [place] [address] [email or web address] Transitions College Athletic DirectorBody And Fender Worker Therapy 12/12/2312/14/23 documented as of this encounter Additional Source Comments The information contained in this document represents components of the legal health record. It is not the complete legal health record.[facility]
--- OUTSIDE RECORDS SUMMARY | 2025-05-21 12:51 | XMS_ITS | Encounter Summary ---
Author Organization [facility] Address [address] [place] [address] Phone Care Team Providers Care Parks Recreation Director Name Role Phone Harris Lennon MD Primary Care Provider [phone] Kory Vogt MD Unavailable Harris Lennon MD Unavailable [phone] Margarita Davisdon RN Unavailable [email or web address] Encounter Details Date Type Department Care Team (Late st Contact Info) Description 08/02/2024 Procedure Pass [facility], [address] [id number] Social History Tobacco Use Types Packs/Day Years Used Date Smoking Tobacco: Former Cigarettes Q uit: 1972 Smokeless Tobacco: Former Quit: 1967 Alcohol Use [...] as food, clothing, or medical care? No 06/16/2024 In the past 12 months have y ou been in a relationship with a person who hurts, threatens, or tries to control you? No 06/16/2024 Are you denied basic needs s uch as food, clothing, or medical care? No 06/16/2024 In the past 12 months have y ou been in a relationship with a person who hurts, threatens, or tries to control you? No 06/16/2024 Comments No Sex and Gender Information Value [...] Info) Description 04/08/2025 Procedure Pass Echo Lab [address] [place] [address] 07/30/2025 10:45 AM EST Office Visit [facility] [address] [place] [address] [place] [address] Harris Lennon MD [address] [place] [address], [address] [place] [address] 09/09/2025 11:15 AM EST Appointment Echo Lab [address] [place] [address] Stacie Gruber PA-C [address] [place] [address] 09/27/2025 10:40 AM EST Office Visit [facility] [address] [place] [address] 3rd Floor, [address] [place] [address] Davidson Gunter MD [address] [place] [address], [address] [place] [address] 02/14/2026 10:10 AM EDT Office Visit [facility] [address] [place] [address] Talon Seth DO [address] [place] [address] [email or web address] documented as of this encounter Visit Diagnoses Not on filedocumented in this encounter Additional Health Concerns Assessment Noted Time PHQ-9 Depression Total Score: 15 018 2:17 PM EST PHQ-2 Depression Total Score: 0 09/06/20 24 10:43 AM EST documented as of this encounter Care Teams Parks Recreation Director Relationship Specialty Start Date End Date Harris Lennon MD [address] [place] [address], [address] [address] PCP - General Internal Medicine 01/16/21 Kory Vogt MD [address] [place] [address] [email or web address] Gastroenterology 10/07/21 Harris Lennon MD [address] [place] [address] [email or web address] Insurance Assigned Provider 12/17/23 Margarita Davidson RN [address] [place] [address] [email or web address] iCMP Direct Support Staff MemberTitle Supervisor 07/01/22 02/17/25 documented as of this encounter Additional Source Comments The information contained in this document represents components of the legal health record. It is not the complete legal health record.[facility]
--- OUTSIDE RECORDS SUMMARY | 2025-05-21 12:51 | XMS_ITS | Encounter Summary ---
Author Organization [facility] Address [address] [place] [address] Phone Care Team Providers Care Mobile Solutions Architect Name Role Phone Harris Lennon MD Primary Care Provider [phone] Kory Vogt MD Unavailable Harris Lennon MD Unavailable [phone] Margarita Davidson RN Unavailable [email or web address] Jyoti Aviles OT Unavailable [phone] Encounter Details Date Type Department Care Team (Latest Contact Info) Description 08/02/2022 Transcribe Orders Virtual Department [address] [place], [place] [id number] Harris Lennon MD 22 [facility], [address] [place] [address] [email or web address] Breast screening (Primary Dx) Social History Tobacco Use Types Packs/Day Years [...] Description 04/08/2025 Procedure Pass [facility] [address] [place] [address] 07/30/2025 10:45 AM EST Office Visit [address] [place] [address] Harris Lennon MD [address] [place] [address], [address] [place] [address] 09/09/2025 11:15 AM EST Appointment Echo Lab [address] [place] [address] Stacie Gruber PA-C [address] [place] [address] 09/27/2025 10:40 AM EST Office Visit [facility] [address] [place] [address] 3rd Floor, [address] [place] [address] Davidson Gunter MD [address] [place] [address], [address] [place] [address] 02/14/2026 10:10 AM EDT Office Visit [facility] [address] [place] [address] [place] [address] Talon Seth DO [address] [place] [address] documented as of this encounter Results * BI MAMMOGRAM SCREENING WITH TOMOSYNTHESIS WITH CAD (BILATERAL) (10/27/2022 11:25 AM EST) Anatomical Region Laterality Modality Breast Left, Breast Right, Breast Bilateral Bila teral Mammography 10/27/2022 8:46 PM EST Impressions 10/27/2022 8:50 PM EST BILATERAL BREASTS: Benign, no specific mammographic evidence of malignancy. Normal interval follow-up is recommended in 12 months. BI-RADS: BI-RADS CATEGORY: 2 - Benign finding. DENSITY: There are scattered fibroglandular densities. Narrative 10/27/2022 8:50 PM EST STUDY: BI MAMMOGRAM SCREENING WITH TOMOSYNTHESIS WITH CAD (BILATERAL) TECHNIQUE: Bilateral full-field digital screening mammography is obtained and read in conjunction with computer-aided detection. Tomosynthesis as well as 2-D C view imaging were obtained. COMPARISON: Comparison made to multiple prior, most recent October 22, 2021, and most remote May 05, 2015. BREAST COMPOSITION: There are scattered areas of fibroglandular density RIGHT BREAST: No significant masses, suspicious calcifications or other abnormalities are seen. LEFT BREAST: History of previous excisional biopsy. No significant masses, suspicious calcifications or other abnormalities are seen. Procedure Note Christelle Hernandez MD - 10/27/2022 STUDY: BI MAMMOGRAM SCREENING WITH TOMOSYNTHESIS WITH CAD (BILATERAL) TECHNIQUE: Bilateral full-field digital screening mammography is obtainedand read in conjunction with computer-aided detection. Tomosynthesis aswell as 2-D C view imaging were obtained. COMPARISON: Comparison made to multiple prior, most recent October, and most remote May 05, 2015. BREAST COMPOSITION: There are scattered areas of fibroglandulardensity RIGHT BREAST: No significant masses, suspicious calcifications or otherabnormalities are seen. LEFT BREAST: History of previous excisional biopsy. No significantmasses, suspicious calcifications or other abnormalities are seen. IMPRESSION: BILATERAL BREASTS: Benign, no specific mammographic evidence ofmalignancy. Normal interval follow-up is recommended in 12 months. BI-RADS: BI-RADS CATEGORY: 2 - Benign finding. DENSITY: There are scattered fibroglandular densities. us Harris Lennon MD IMG MG EXAMS Final Resu lt documented in this encounter Visit Diagnoses Diagnosis Breast screening- Primary Breast screening, unspecified Breast screening Breast screening, [...] documented as of this encounter Care Teams Mobile Solutions Architect Relationship Specialty Start Date End Date Harris Lennon MD [address] [place] [address], [address] [place] [address] PCP - General Internal Medicine 01/16/21 Kory Vogt MD [address] [place] [address] Gastroenterology 10/07/21 Harris Lennon MD [address] [place] [address], [address] [place] [address] Insurance Assigned Provider 12/17/23 Margarita Davidson, RN [address] [place] [address], [address] [place] [address] [email or web address] iCMP Surgical Elastic KnitterPerforator Operator 07/01/22 02/17/25 Jyoti Aviles, OT [address] [place] [address] Transitions Surgical Elastic KnitterRoto Mixer Operator Therapy 12/12/2312/14/23 documented as of this encounter Additional Source Comments The information contained in this document represents components of the legal health record. It is not the complete legal health record.[facility]
--- OUTSIDE RECORDS SUMMARY | 2025-05-21 12:52 | XMS_ITS | Encounter Summary ---
Author Organization [facility] Address [address] [place] [address] Phone Care Team Providers Care Medicaid Business Analyst Name Role Phone Harris Lennon MD Primary Care Provider [phone] Kory Vogt MD Unavailable Harris Lennon MD Unavailable [phone] Margarita Davidson RN Unavailable [email or web address] Encounter Details Date Type Department Care Team (Latest Contact Info) Description 09/14/2024 Transcribe Orders [facility] Specimen Processing [address] [place] [address] Harris Lennon MD 22 [facility], [address] [place] [address] [email or web address] Other osteoporosis without current pathological fracture (Primary Dx) Social History Tobacco Use Types [...] Info) Description 04/08/2025 Procedure Pass Echo Lab [address] [place] [address] 07/30/2025 10:45 AM EST Office Visit [facility] [address] [place] [address] [place] [address] Harris Lennon MD 22 [facility], [address] [place] [address] 09/09/2025 11:15 AM EST Appointment Echo Lab [address] [place] [address] Stacie Gruber PA-C [address] [place] [address] 09/27/2025 10:40 AM EST Office Visit [facility] [address] [place] [address] 3rd Floor, [address] [place] [address] Davidson Gunter MD 22 [facility], [address] [place] [address] [email or web address] 02/14/2026 10:10 AM EDT Office Visit [facility] [address] [place] [address] Talon Seth DO [address] [place] [address] [email or web address] documented as of this encounter Results * (ABNORMAL) Calcium, 24 hour urine (09/17/2024 10:33 AM EST) URINE CALCIUM 7.9 mg/dL [facility] CALCIUM OUTPUT 87(L) 100 - 300 mg/total output [facility] Urine (Urine) 09/17/2024 10: 33 AM EST 09/17/2024 10:39 AM EST us Talno Seth DO URINE ORDERABLES Final Result [address] [address] * (ABNORMAL) Creatinine, 24 hr urine (09/17/2024 10:33 AM EST) URINE CREATININE 41 mg/dL [facility] CREATININE OUTPUT 451(L) 600 - 1,800 mg/total output [facility] Urine (Urine) 09/17/2024 10: 33 AM EST 09/17/2024 10:39 AM EST us Talon Seth DO URINE ORDERABLES Final Result [address] [address] documented in this encounter Visit Diagnoses Diagnosis Other osteoporosis without current pathological fracture- Primary documented in this encounter Additional Health Concerns Assessment Noted Time PHQ-9 Depression Total Score: 15 018 2:17 PM EST PHQ-2 Depression Total Score: 0 09/06/20 10:43 AM EST documented as of this encounter Care Teams Medicaid Business Analyst Relationship Specialty Start Date End Date Harris Lennon MD [address] [place] [address], [address] [place] [address] PCP - General Internal Medicine 01/16/21 Kory Vogt MD [address] [place] [address] Gastroenterology 10/07/21 Harris Lennon MD [address] [place] [address], [address] [place] [address] Insurance Assigned Provider 12/17/23 Margarita Davidson RN [address] [place] [address], [address] [place] [address] [email or web address] iCMP Hospice AdministratorOre Buyer 07/01/22 02/17/25 documented as of this encounter Additional Source Comments The information contained in this document represents components of the legal health record. It is not the complete legal health record.[facility]
--- OUTSIDE RECORDS SUMMARY | 2025-05-21 12:52 | XMS_ITS | Encounter Summary ---
Author Organization [facility] Address [address] [place] [address] Phone Care Team Providers Care Marine Diesel Mechanic Name Role Phone Harris Lennon MD Primary Care Provider [phone]- [phone] Kory Vogt MD Unavailable Harris Lennon MD Unavailable [phone] Margarita Davidson RN Unavailable [email or web address] Margarita Davidson RN Unavailable [email or web address] Jyoti Aviles OT Unavailable [phone] Encounter Details Date Type Department Care Team (Late st Contact Info) Description 12/23/2021 Procedure Pass [facility] [address] [place] [address] Social History Tobacco Use Types Packs/Day Years [...] Info) Description 04/08/2025 Procedure Pass Echo Lab [address] [place] [address] 07/30/2025 10:45 AM EST Office Visit [facility] Medicine [address] [place] [address] [place] [address] Harris Lennon MD [address] [place] [address], [address] [place] [address] 09/09/2025 11:15 AM EST Appointment Echo Lab [address] [place] [address] Stacie Gruber PA-C [address] [place] [address] 09/27/2025 10:40 AM EST Office Visit [facility] [address] [place] [address] 3rd Floor, [address] [place] [address] Davidson Gunter MD [address] [place] [address], [address] [place] [address] 02/14/2026 10:10 AM EDT Office Visit [facility] [address] [place] [address] [place] [address] Talon Seth DO [address] [place] [address] documented as of this encounter Visit Diagnoses [...] documented as of this encounter Care Teams Marine Diesel Mechanic Relationship Specialty Start Date End Date Harris Lennon MD [address] [place] [address], [address] [place] [address] PCP - General Internal Medicine 01/16/21 Kory Vogt MD [address] [place] [address] [facility] Gastroenterology 10/07/21 Harris Lennon MD [address] [place] [address], [address] [place] [address] [email or web address] Insurance Assigned Provider 12/17/23 Margarita Davidson RN [address] [place] [address], [address] [place] [address] [email or web address] iCMP Agricultural Extension Specialist 06/02/22 06/29/22 Margarita Davidson RN [address] [place] [address], [address] [place] [address] [email or web address] iCMP Agricultural Extension SpecialistVeterinary Practitioner 07/01/22 02/17/25 Jyoti Aviles, OT [address] [place] [address] [email or web address] Transitions Agricultural Extension SpecialistWestern Philosophy Professor Therapy 12/12/2312/14/23 documented as of this encounter Additional Source Comments The information contained in this document represents components of the legal health record. It is not the complete legal health record.[facility]
--- OUTSIDE RECORDS SUMMARY | 2025-05-21 12:52 | XMS_ITS | Encounter Summary ---
Author Organization [facility] Address [address] [place] [address] Phone Care Team Providers Care Recorder Gravity Prospecting Name Role Phone Harris Lennon MD Primary Care Provider [phone] Kory Vogt MD Unavailable Harris Lennon MD Unavailable Margarita Davidson RN Unavailable [email or web address] Encounter Details Date Type Department Care Team (Late st Contact Info) Description 05/01/2024 Telephone [facility] [address] [place], [place] [address] Opal Billy, RN [address] [place] [phone] [email or web address] Social History Tobacco Use Types Packs/Day Years [...] with a working camera? 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 patient denies missed dose or any changes in medication. This week she will take 5mg today and tomorrow, 2.5mg on , and will be seen again on Tuesday. documented in this encounter Plan of Treatment Upcoming Encounters Date Type Department Care Team (Late st Contact Info) Description 04/08/2025 Procedure Pass Echo Lab [address] [place] [address] 07/30/2025 10:45 AM EST Office Visit [facility] [address] [place] [address] [place] [address] Harris Lennon MD [address] [place] [address], [address] [place] [address] 09/09/2025 11:15 AM EST Appointment Echo Lab [address] [place] [address] Stacie Gruber PA-C [address] [place] [address] 09/27/2025 10:40 AM EST Office Visit [facility] [address] [place] [address] 3rd Floor, [address] [place] [address] Davidson Gunter MD [address] [place] [address], [address] [place] [address] 02/14/2026 10:10 AM EDT Office Visit [facility] [address] [place] [address] Talon Seth DO [address] [place] [address] documented as of this encounter Visit Diagnoses Not on filedocumented in this encounter Additional Health Concerns Assessment Noted Time PHQ-9 Depression Total Score: 15 018 2:17 PM EST PHQ-2 Depression Total Score: 0 06/22/20 23 1:25 PM EDT documented as of this encounter Care Teams Recorder Gravity Prospecting Relationship Specialty Start Date End Date Harris Lennon MD [address] [place] [address], [address] [place] [address] PCP - General Internal Medicine 01/16/21 Kory Vogt MD [address] [place] [address] Gastroenterology 10/07/21 Harris Lennon MD [address] [place] [address], [address] [place] [address] Insurance Assigned Provider 12/17/23 Margarita Davidson, MARIZOL [address] [place] [address], [address] [place] [address] [email or web address] iCMP Computer Repair InstructorFeed Weigher 07/01/22 02/17/25 documented as of this encounter Additional Source Comments The information contained in this document represents components of the legal health record. It is not the complete legal health record.[facility]
--- OUTSIDE RECORDS SUMMARY | 2025-05-21 12:52 | XMS_ITS | Encounter Summary ---
Author Organization [facility] Address [address] [place] [address] Phone Care Team Providers Care Erp Specialist Name Role Phone Harris Lennon MD Primary Care Provider [phone] Kory Vogt MD Unavailable Harris Lennon MD Unavailable [phone] Margarita Davidson RN Unavailable [email or web address] Encounter Details Date Type Department Care Team (Late st Contact Info) Description 03/14/2024 Procedure Pass Echo [facility] [address] [place] [address] Social History Tobacco Use Types Packs/Day Years [...] Info) Description 04/08/2025 Procedure Pass Echo Lab [address] [place] [address] 07/30/2025 10:45 AM EST Office Visit [facility] [address] [place] [address] [place] [address] Harris Lennon MD [address] [place] [address], [address] [place] [address] 09/09/2025 11:15 AM EST Appointment Echo Lab [address] [place] [address] Stacie Gruber PA-C [address] [place] [address] 09/27/2025 10:40 AM EST Office Visit [facility] [address] [place] [address] 3rd Floor, [address] [place] [address] Davidson Gunter MD [address] [place] [address], [address] [place] [address] 02/14/2026 10:10 AM EDT Office Visit [facility] [address] [place] [address] [place] [address] Talon Seth DO [address] [place] [address] documented as of this encounter Visit Diagnoses Not on filedocumented in this encounter Additional Health Concerns Assessment Noted Time PHQ-9 Depression Total Score: 15 018 2:17 PM EST PHQ-2 Depression Total Score: 0 09/06/20 24 10:43 AM EST documented as of this encounter Care Teams Erp Specialist Relationship Specialty Start Date End Date Harris Lennon MD [address] [place] [address], [address] [place] [address] [email or web address] PCP - General Internal Medicine 01/16/21 Kory Vogt MD [address] [place] [address] [email or web address] Gastroenterology 10/07/21 Harris Lennon MD [address] [place] [address], [address] [place] [address] [email or web address] Insurance Assigned Provider 12/17/23 Margarita Davidson RN [address] [place] [address], [address] [place] [address] [email or web address] iCMP Orthopedic Physical TherapistTumbler Dyeing Machine Operator 07/01/22 02/17/25 documented as of this encounter Additional Source Comments The information contained in this document represents components of the legal health record. It is not the complete legal health record.[facility]
--- OUTSIDE RECORDS SUMMARY | 2025-05-21 12:53 | XMS_ITS | Encounter Summary ---
Author Organization [facility] Address [address] [place] [address] Phone Care Team Providers Care Dictating Machine Transcriber Name Role Phone Harris Lennon MD Primary Care Provider [phone] Kory Vogt MD Unavailable Harris Lennon MD Unavailable [phone] Margarita Davidson RN Unavailable [email or web address] Encounter Details Date Type Department Care Team (Latest Contact Info) Description 08/02/2024 Transcribe Orders Virtual Department [address], [place] [id number] Harris Lennon MD [address] [facility], [address] [place] [address] [email or web address] Breast screening (Primary Dx) Social History [...] Info) Description 04/08/2025 Procedure Pass Echo Lab [address] [place] [address] 07/30/2025 10:45 AM EST Office Visit [facility] [address] [place] [address] [place] [address] Harris Lennon MD [address] [place] [address], [address] [place] [address] 09/09/2025 11:15 AM EST Appointment Echo Lab [address] [place] [address] Stacie Gruber PA-C [address] [place] [address] 09/27/2025 10:40 AM EST Office Visit [facility] [address] [place] [address] 3rd Floor, [address] [place] [address] Davidson Gunter MD [address] [place] [address], [address] [place] [address] 02/14/2026 10:10 AM EDT Office Visit [facility] [address] [place] [address] Talon Seth, [address] [place] [address] documented as of this encounter Results * BI MAMMOGRAM SCREENING WITH TOMOSYNTHESIS WITH CAD (BILATERAL) (01/21/2025 1:41 PM EDT) Anatomical Region Laterality Modality Breast Left, Breast Right, Breast Bilateral Bila teral Mammography 01/22/2025 9:58 AM EDT Impressions 01/22/2025 10:00 AM EDT No mammographic evidence of malignancy in either breast. Annual screening mammography is recommended. BI-RADS 1 NEGATIVE The patient will be notified of the results and recommendations. Narrative 01/22/2025 10:00 AM EDT BI MAMMOGRAM SCREENING WITH TOMOSYNTHESIS WITH CAD (BILATERAL) Additional patient information: Screening. COMPARISON: Comparison is made with relevant prior imaging. Breast composition: There are scattered areas of fibroglandular density. FINDINGS: No abnormal masses, suspicious calcifications, or other significant findings are identified mammographically in either breast. Procedure Note Tamy Rudolph MD - 01/22/2025 BI MAMMOGRAM SCREENING WITH TOMOSYNTHESIS WITH CAD (BILATERAL) Additional patient information: Screening. COMPARISON: Comparison is made with relevant prior imaging. Breast composition: There are scattered areas of fibroglandular density. FINDINGS: No abnormal masses, suspicious calcifications, or other significantfindings are identified mammographically in either breast. IMPRESSION: No mammographic evidence of malignancy in either breast. Annual screening mammography is recommended. BI-RADS 1 NEGATIVE The patient will be notified of the results and recommendations. us Harris Lennon MD IMG MG EXAMS [...] documented as of this encounter Care Teams Dictating Machine Transcriber Relationship Specialty Start Date End Date Harris Lennon MD [address] [place] [address], [address] [place] [address] PCP - General Internal Medicine 01/16/21 Kory Vogt MD [address] [place] [address] Gastroenterology 10/07/21 Harris Lennon MD [address] [place] [address], [address] [place] [address] Insurance Assigned Provider 12/17/23 Margarita Davidson, MARIZOL [address] [place] [address], [address] [place] [address] [email or web address] iCMP Fiberglass GrinderInspector Coated Fabrics 07/01/22 02/17/25 documented as of this encounter Additional Source Comments The information contained in this document represents components of the legal health record. It is not the complete legal health record.[facility]
--- OUTSIDE RECORDS SUMMARY | 2025-05-21 12:53 | XMS_ITS | Encounter Summary ---
Author Organization [facility] Address [address] [place] [address] Care Team Providers Care Switchboard Troubleshooter Name Role Phone Unavailable Primary Care Provider Unavailabl e Encounter Details Date Type Department Care Team (Late st Contact Info) Description 07/27/2016 Scanned Document [facility] Cardiothoracic Surgery [place] [address] [facility] [address] [place] [address] Manny Lindo MD [address] [facility] [address] [place] [address] Social History Tobacco Use Types Packs/Day Years [...]
--- OUTSIDE RECORDS SUMMARY | 2025-05-21 12:53 | XMS_ITS | Encounter Summary ---
Author Organization [facility] Address [address] [place] [address] Phone Care Team Providers Care Parking Enforcement Technician Name Role Phone Damien Lance MD Primary Care Provide r Xuan Ferraro DO Primary Care Provider + [phone] Damien Lance MD Unavailable [phone] Xuan Ferraro DO Unavailable [phone] Harris Lennon MD Primary Care Provider + [phone] Kory Vogt MD Unavailable Xuan Ferraro DO Unavailable [phone] Harris Lennon MD Unavailable [phone] Margarita Davidson RN Unavailable [email or web address] Margarita Davidson RN Unavailable [email or web address] Jyoti Aviles OT Unavailable [phone] Encounter Details Date Type Department Care Team (Late st Contact Info) Description 10/17/2017 Procedure Pass [facility], Ct Scan - [address] [id number] Social History Tobacco Use Types Packs/Day Years [...] Info) Description 04/08/2025 Procedure Pass Echo Lab [address] [place] [address] 07/30/2025 10:45 AM EST Office Visit [facility] [address] [place] [address] [place] [address] Harris Lennon MD [address] [place] [address], [address] [place] [address] 09/09/2025 11:15 AM EST Appointment Echo Lab [address] [place] [address] Stacie Gruber PA-C [address] [place] [address] 09/27/2025 10:40 AM EST Office Visit [facility] [address] [place] [address] 3rd Floor, [address] [place] [address] Davidson Gunter MD [address] [place] [address], [address] [place] [address] 02/14/2026 10:10 AM EDT Office Visit [facility] [address] [place] [address] [place] [address] Talon Seth DO [address] [place] [address] documented as of this encounter Visit Diagnoses [...] documented as of this encounter Care Teams Parking Enforcement Technician Relationship Specialty Start Date End Date Damien Lance MD [email or web address] PCP - General Internal Medicine 07/18/17 09/14/18 Xuan Ferraro DO [address] [place] [address] [email or web address] PCP - General 09/15/18 01/15/21 Harris Lennon MD 22 [facility], [address] [place] [address] [email or web address] PCP - General Internal Medicine 01/16/21 Damien Lance MD 22 [facility] Floor 1 [place] [address] [email or web address] Insurance Assigned Provider 07/16/17 06/09/19 Xuan Ferraro DO [address] [place] [address] [email or web address] Insurance Assigned Provider 06/09/19 10/06/21 Kory Vogt MD [address] [place] [address] [email or web address] Gastroenterology 10/07/21 Xuan Freraro DO [address] [place] [address] [email or web address] Insurance Assigned Provider 06/09/19 12/19/21 Harris Lennon MD [address] [place] [address], [address] [place] [address] [email or web address] Insurance Assigned Provider 12/17/23 Margarita Davidson RN [address] [place] [address], [address] [place] [address] [email or web address] iCMP Substance Abuse Nurse 06/02/22 06/29/22 Margarita Davidson RN [address] [place] [address], [address] [place] [address] [email or web address] iCMP Substance Abuse NurseCareer Counselor 07/01/22 02/17/25 Jyoti Aviles, OT [address] [place] [address] [email or web address] Transitions Substance Abuse NurseAlteration Workroom Supervisor Therapy 12/12/2312/14/23 documented as of this encounter Additional Source Comments The information contained in this document represents components of the legal health record. It is not the complete legal health record.[facility]
--- OUTSIDE RECORDS SUMMARY | 2025-05-21 12:53 | XMS_ITS | Clinical Summary ---
Author Organization [facility] Address [address] [place] [address] Care Team Providers Care Air Analyst Name Role Phone Unavailable Primary Care Provider Unavailabl e Social History Tobacco Use Types Packs/Day Years Used Date Smoking Tobacco: Never Assessed Comments Unknown Sex and Gender Information Value Date Recorded Sex Assigned at Not on file Legal Sex Female 9:12 AM EST Gender Identity Not on file Sexual Orientation Not on file Plan of Treatment Health Maintenance Due Date Last Done Comments Advance Care Planning 1945 DTaP/Tdap/Td Vaccines (1 - Tdap) 1963 Pneumococcal Vaccines 50+ (1 of 1 - PCV) 1994 Zoster (Shingles) Vaccine (1 of 2) 1994 RSV Vaccine 60 years and old er and Patients (1 - 1-dose 75+ series) 2019 COVID-19 Vaccine ( - 2023-2 5 season) 2025 Hepatitis B Vaccines Aged Out No long er eligible based on patient's age to complete this topic Additional Health Concerns Infection Onset Date Last Indicated 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
--- OUTSIDE RECORDS SUMMARY | 2025-05-21 12:53 | XMS_ITS | Encounter Summary ---
Author Organization [facility] Address [address] [place] [address] Phone Care Team Providers Care Superintendent Landfill Operations Name Role Phone Xuan Ferraro DO Primary Care Provider + [phone] Xuan Ferraro DO Unavailable [phone] Harris Lennon MD Primary Care Provider + [phone] Kory Vogt MD Unavailable Xuan Ferraro DO Unavailable [phone] Harris Lennon MD Unavailable [phone] Margarita Davidson RN Unavailable [email or web address] Margarita Davidson RN Unavailable [email or web address] Jyoti Aviles OT Unavailable [phone] Encounter Details Date Type Department Care Team (Latest Contact Info) Description 08/13/2019 Transcribe Orders [address] [place] [address] Gabriel Fay MD [email or web address] Personal history of arthritis (Primary Dx); Senile osteoporosis; Other secondary chronic gout, unspecified site, without tophus (tophi) Social History Tobacco Use Types Packs/Day Years [...] Info) Description 04/08/2025 Procedure Pass Echo Lab [address] [place] [address] 07/30/2025 10:45 AM EST Office Visit [facility] [place] [facility] [address] [place] [address] [place] [address] Harris Lennon MD [address] [place] [address], [address] [place] [address] 09/09/2025 11:15 AM EST Appointment Echo Lab [address] [place] [address] Stacie Gruber PA-C [address] [place] [address] 09/27/2025 10:40 AM EST Office Visit [facility] [address] [place] [address] 3rd Floor, [address] [place] [address] Davidson Gunter MD [address] [place] [address], [address] [place] [address] 02/14/2026 10:10 AM EDT Office Visit [facility] [address] [place] [address] [place] [address] Talon Seth DO [address] [place] [address] documented as of this encounter Visit Diagnoses Diagnosis Personal history of arthritis- Primary Senile osteoporosis Other secondary chronic gout, unspecified site, without tophus (tophi) documented in this encounter Additional Health Concerns Infection Onset Date Last Indicated Resolved Time CoV-Risk 08/21/2022 08/21/2022 09/01/2022 1:23 AM EST CoV-Risk 11/16/2023 11/16/2023 11/27/2023 1:21 AM EDT Assessment Noted Time PHQ-9 Depression Total Score: 15 018 2:17 PM EST PHQ-2 Depression Total Score: 4 08/21/20 18 2:17 PM EST documented as of this encounter Care Teams Superintendent Landfill Operations Relationship Specialty Start Date End Date Xuan Ferraro DO [address] [place] [address] .[employer] PCP - General 09/15/18 01/15/21 Harris Lennon MD [address] [place] [address], [address] [place] [address] [email or web address] PCP - General Internal Medicine 01/16/21 Xuan Ferraro DO [address] [place] [address] .[employer] Insurance Assigned Provider 06/09/19 10/06/21 Kory Vogt MD [address] [place] [address] [email or web address] Gastroenterology 10/07/21 Xuan Ferraro DO [address] [place] [address] .[employer] Insurance Assigned Provider 06/09/19 12/19/21 Harris Lennon MD [address] [place] [address], [address] [place] [address] [email or web address] Insurance Assigned Provider 12/17/23 Margarita Davidson RN [address] [place] [address], [address] [place] [address] [email or web address] iCMP Chemist Biological 06/02/22 06/29/22 Margarita Davidson RN [address] [place] [address], [address] [place] [address] [email or web address] iCMP Chemist BiologicalPlant Maintenance Worker 07/01/22 02/17/25 Jyoti Aviles, OT [address] [place] [address] [email or web address] Transitions Chemist BiologicalSales Project Engineer Therapy 12/12/2312/14/23 documented as of this encounter Additional Source Comments The information contained in this document represents components of the legal health record. It is not the complete legal health record.[facility]
--- OUTSIDE RECORDS SUMMARY | 2025-05-21 12:53 | XMS_ITS | Encounter Summary ---
Author Organization [facility] Address [address] [place] [address] Phone Care Team Providers Care Exam Proctor Name Role Phone Zeina BurnsSW Unavailable Unavailab Damien Foley MD Unavailable [phone] Gabriel Fay MD Unavailable [email or web address] Darryl Hooks MD Unavailable Yury Eugene [employer] Unavailable Merle Morrell MD Unavailable Christiano Alfaro MD Unavailable [phone] Kanchan Chow [employer] Unavailable [phone] Allen Quevedo MD Unavailable Sheng Hermosillo MD Unavailable [phone] Talon Beaulieu MD Unavailable [phone] Cece Perez MD Unavailable Allen Oleary MD Unavailable Tea Lamb MD Unavailable Tatianna Killian CNP Unavailable Sheng Salidvar MD Unavailable Evan Hi MD Unavailable [phone] Damien Lance MD Unavailable [phone] Damien Lance MD Primary Care Provide r Xuan Ferraro DO Primary Care Provider [phone] Damien Lance MD Unavailable [phone] Xuan Ferraro DO Unavailable [phone] Harris Lennon MD Primary Care Provider [phone] Kory Vogt MD Unavailable Xuan Ferraro DO Unavailable +[phone] Harris Lennon MD Unavailable + Margarita Davidson RN Unavailable [email or web address] Margarita Davidson RN Unavailable [email or web address] Jyoti Aviles OT Unavailable [phone] Encounter Details Date Type Department Care Team (Late st Contact Info) Description 09/07/2017 Procedure Pass [facility] Endoscopy Admitting Dept Virtual Department 30 [place] [address] Social History Tobacco Use Types Packs/Day Years [...] Info) Description 04/08/2025 Procedure Pass [facility] [address] [place] [address] 07/30/2025 10:45 AM EST Office Visit [address] [place] [address] Harris Lennon MD [address] [place] [address], [address] [place] [address] 09/09/2025 11:15 AM EST Appointment Echo Lab [address] [place] [address] Stacie Gruber PA-C [address] [place] [address] 09/27/2025 10:40 AM EST Office Visit [facility] [address] [place] [address] 3rd Floor, [address] [place] [address] Davidson Gunter MD [address] [place] [address] 02/14/2026 10:10 AM EDT Office Visit [facility] [address] [place] [address] [place] [address] Talon Seth DO [address] [place] [address] documented as of this encounter Visit Diagnoses [...] documented as of this encounter Care Teams Exam Proctor Relationship Specialty Start Date End Date Damien Lance MD [address] [place] [address] [email or web address] PCP - General Internal Medicine 07/18/17 09/14/18 Xuan Ferraro DO [address] [place] [address] [email or web address] PCP - General 09/15/18 01/15/21 Harris Lennon MD [address] [place] [address], [address] [place] [address] [email or web address] PCP - General Internal Medicine 01/16/21 Zeina Burns [facility] Historical LMR Provider 07/03/17 09/21/17 Damien Lance MD 22 [facility] 1 [place] [address] [email or web address] Historical LMR Provider 07/03/17 09/21/17 Gabriel Fay MD [email or web address] Historical LMR Provider 07/03/17 09/21/17 Darryl Hooks MD [address] [place] [address], [address] [place] [address] [email or web address] Historical LMR Provider 07/03/17 Yury Hawley NP [address] [place] [address] 2[facility] [address] [email or web address] Historical LMR Provider 07/03/17 09/21/17 Merle Morrell MD 15 [facility], 2nd [place] [address] [email or web address] Historical LMR Provider 07/03/1709/21 Christiano Alfaro MD [address] [place] [address], [address] [place] [address] [email or web address] Historical LMR Provider 07/03/17 09/21/17 Kanchan Chow, NIKO [address] [place] [address] [place] [address] Historical LMR Provider 07/03/1709/21 Allen Quevedo MD [address] [place] [address] [address] [place] [address] [email or web address] Historical LMR Provider 07/03/17 09/21/17 Sheng Hermosillo MD [address] [place] [address], [address] [place] [address] [email or web address] Historical LMR Provider 07/03/17 09/21/17 Talon Beaulieu MD [address] [place] [address], [address] [place] [address] [email or web address] Historical LMR Provider 07/03/17 Cece Perez MD [address] [place] [address] [facility], [place] [address] [email or web address] Historical LMR Provider 07/03/17 09/21/17 Allen Oleary MD [address] [place] [address] Historical LMR Provider 07/03/1709/21 Tea Lamb MD -[address] [place] [address] [email or web address] Historical LMR Provider 07/03/17 09/21/17 Tatianna Killian CNP 22 [facility], [address] [place] [address] [email or web address] Historical LMR Provider 07/03/1709/21 Sheng Saldivar MD [address] [place] [address] [email or web address] Historical LMR Provider 07/03/17 8 Evan Hi MD 10 [facility] 1 [place] [address] [email or web address] Historical LMR Provider 07/03/17 09/21/17 Damien Lance MD 22 [facility] 1 [place] [address] [email or web address] Insurance Assigned Provider 07/16/17 09/21/17 Damien Lance MD 22 [facility] 1 [place] [address] [email or web address] Insurance Assigned Provider 07/16/17 06/09/19 Xuan Ferraro DO [address] [place] [address] [email or web address] Insurance Assigned Provider 06/09/19 10/06/21 Kory Vogt MD 10 [facility] 2 [place] [address] [email or web address] Gastroenterology 10/07/21 Xuan Ferraro DO [address] [place] [address] [email or web address] Insurance Assigned Provider 06/09/19 12/19/21 Harris Lennon MD [address] [place] [address], [address] [place] [address] [email or web address] Insurance Assigned Provider 12/17/23 Margarita Davidson RN [address] [place] [address], [address] [place] [address] [email or web address] iCMP Director Database 06/02/22 06/29/22 Margarita Davidson RN [address] [place] [address], [address] [place] [address] [email or web address] iCMP Director DatabaseSenior Property Accountant 07/01/22 02/17/25 Jyoti Aviles, OT [address] [place] [address] [email or web address] Transitions Director DatabaseFront Desk Attendant Therapy 12/12/23 12/14/23 documented as of this encounter Additional Source Comments The information contained in this document represents components of the legal health record. It is not the complete legal health record.[facility]
--- OUTSIDE RECORDS SUMMARY | 2025-05-21 12:54 | XMS_ITS | Encounter Summary ---
Author Organization [facility] Address [address] [place] [address] Phone Care Team Providers Care Mortgage Processing Clerk Name Role Phone Xuan Ferraro DO Primary Care Provider + [phone] Xuan Ferraro DO Unavailable [phone] Harris Lennon MD Primary Care Provider Kory Vogt MD Unavailable Xuan Ferraro DO Unavailable [phone] Harris Lennon MD Unavailable [phone] Margarita Davidson RN Unavailable [email or web address] Margarita Davidson RN Unavailable [email or web address] Jyoti Aviles OT Unavailable [phone] Encounter Details Date Type Department Care Team (Late st Contact Info) Description 05/23/2020 Procedure Pass [facility], [address] [address] Social History Tobacco Use Types Packs/Day Years [...] Info) Description 04/08/2025 Procedure Pass Echo Lab [address] [place] [address] 07/30/2025 10:45 AM EST Office Visit [facility] [address] [place] [address] [place] [address] Harris Lennon MD [address] [place] [address], [address] [place] [address] 09/09/2025 11:15 AM EST Appointment Echo Lab [address] [place] [address] Stacie Gruber PA-C [address] [place] [address] 09/27/2025 10:40 AM EST Office Visit [facility] [address] [place] [address] 3rd Floor, [address] [place] [address] Davidson Gunter MD [address] [place] [address], [address] [place] [address] 02/14/2026 10:10 AM EDT Office Visit [facility] [address] [place] [address] [place] [address] Talon Seth DO [address] [place] [address] documented as of this encounter Visit Diagnoses Not on filedocumented in this encounter Additional Health Concerns Infection Onset Date Last Indicated Resolved Time CoV-Risk 08/21/2022 08/21/2022 09/01/2022 1:23 AM EST CoV-Risk 11/16/2023 11/16/2023 11/27/2023 1:21 AM EDT Assessment Noted Time PHQ-9 Depression Total Score: 15 018 2:17 PM EST PHQ-2 Depression Total Score: 0 05/02/20 20 11:37 AM EDT documented as of this encounter Care Teams Mortgage Processing Clerk Relationship Specialty Start Date End Date Xuan Ferraro DO [address] [place] [address] [email or web address] PCP - General 09/15/18 01/15/21 Harris Lennon MD [address] [place] [address], [address] [place] [address] [email or web address] PCP - General Internal Medicine 01/16/21 Xuan Ferraro DO [address] [place] [address] [email or web address] Insurance Assigned Provider 06/09/19 10/06/21 Kory Vogt MD [address] [place] [address] [email or web address] Gastroenterology 10/07/21 Xuan Ferraro DO [address] [place] [address] [email or web address] Insurance Assigned Provider 06/09/19 12/19/21 Harris Lennon MD [address] [place] [address], [address] [place] [address] [email or web address] Insurance Assigned Provider 12/17/23 Margarita Davidson RN [address] [place] [address], [address] [place] [address] [email or web address] iCMP Electronic Assembler 06/02/22 06/29/22 Margarita Davidson, RN 22 [facility], [address] [place] [address] [email or web address] iCMP Electronic AssemblerWell Driller 07/01/22 02/17/25 Jyoti Aviles, OT 30 [place] [address] [email or web address] Transitions Electronic AssemblerLiner Man Therapy 12/12/2312/14/23 documented as of this encounter Additional Source Comments The information contained in this document represents components of the legal health record. It is not the complete legal health record.[facility]
--- OUTSIDE RECORDS SUMMARY | 2025-05-21 12:54 | XMS_ITS | Encounter Summary ---
Author Organization [facility] Address [address] [place] [address] Phone Care Team Providers Care Inker Machine Name Role Phone Xuan Ferraro DO Primary Care Provider + [phone] Xuan Ferraro DO Unavailable [phone] Harris Lennon MD Primary Care Provider Kory Vogt MD Unavailable Xuan Ferraro DO Unavailable [phone] Harris Lennon MD Unavailable [phone] Margarita Davidson RN Unavailable [email or web address] Margarita Davidson RN Unavailable [email or web address] Jyoti Aviles OT Unavailable [phone] Encounter Details Date Type Department Care Team (Late st Contact Info) Description 05/23/2020 Procedure Pass [facility], [address] [address] Social History Tobacco Use Types Packs/Day Years [...] - Inhaled Oxygen Concentration - - Weight 57.2 kg (126 lb) 05/26/2020 3:05 PM EDT Height 157.5 cm (5' 2 ) 05/26/2020 3:05 PM EDT Body Mass Index 23.05 05/26/2020 3:05 PM EDT documented in this encounter Plan of Treatment Upcoming Encounters Date Type Department Care Team (Late st Contact Info) Description 04/08/2025 Procedure Pass [facility] [address] [place] [address] 07/30/2025 10:45 AM EST Office Visit [address] [place] [address] Harris Lennon MD [address] [place] [address], [address] [place] [address] 09/09/2025 11:15 AM EST Appointment Echo Lab [address] [place] [address] Stacie Gruber PA-C [address] [place] [address] 09/27/2025 10:40 AM EST Office Visit [facility] [address] [place] [address] 3rd Floor, [address] [place] [address] Davidson Gunter MD [address] [place] [address], [address] [place] [address] 02/14/2026 10:10 AM EDT Office Visit [facility] [address] [place] [address] [place] [address] Talon Seth DO [address] [place] [address] [email or web address] documented as of this encounter Visit Diagnoses [...] documented as of this encounter Care Teams Inker Machine Relationship Specialty Start Date End Date Xuan Ferraro DO [address] [place] [address] [email or web address] PCP - General 09/15/18 01/15/21 Harris Lennon MD [address] [place] [address] [address] [place] [address] [email or web address] PCP - General Internal Medicine 01/16/21 Xuan Ferraro DO [address] [place] [address] [email or web address] Insurance Assigned Provider 06/09/19 10/06/21 Kory Vogt MD [address] [place] [address] Gastroenterology 10/07/21 Xuan Ferraro DO [address] [place] [address] [email or web address] Insurance Assigned Provider 06/09/19 12/19/21 Harris Lennon MD [address] [place] [address], [address] [place] [address] [email or web address] Insurance Assigned Provider 12/17/23 Margarita Davidson RN [address] [place] [address], [address] [place] [address] iCMP Patroller 06/02/22 06/29/22 Margarita Davidson RN [address] [place] [address], [address] [place] [address] [email or web address] iCMP PatrollerEntry Clerk 07/01/22 02/17/25 Jyoti Aviles, OT [address] [place] [address] [email or web address] Transitions PatrollerPrototype Engineer Manager Therapy 12/12/2312/14/23 documented as of this encounter Additional Source Comments The information contained in this document represents components of the legal health record. It is not the complete legal health record.[facility]
--- OUTSIDE RECORDS SUMMARY | 2025-05-21 12:55 | XMS_ITS | Encounter Summary ---
Author Organization [facility] Address [address] [place] [address] Phone Care Team Providers Care Director Public Name Role Phone Xuan Ferraro DO Primary Care Provider + [phone] Xuan Ferraro DO Unavailable [phone] Harris Lennon MD Primary Care Provider Kory Vogt MD Unavailable Xuan Ferraro DO Unavailable [phone] Harris Lennon MD Unavailable [phone] Margarita Davidson RN Unavailable [email or web address] Margarita Davidson RN Unavailable [email or web address] Jyoti Aviles OT Unavailable [phone] Reason for Referral * MRI/CAT Scan - Closed Specialty Diagnoses / Procedures Referred By Kelvin t Referred To Contact Radiology Diagnoses Low back pain, unspecified back pain laterality, unspecified chronicity, unspecified whether sciatica present Procedures CT Lumbar Spine John Cook DO Phone: tel: fax: [email or web address] Referral ID Status Reason Start Date Expiration Date Visits Re quested Visits Authorized [id number] Closed 07/02/2020 07/02/2021 1 1 Encounter Details Date Type Department Care Team (Latest Contact Info) Description 07/02/2020 Transcribe Orders Virtual Department 30 [place] [address] John Cook, [address] [place] [address] [email or web address] Low back pain, unspecified back pain laterality, unspecified chronicity, unspecified whether sciatica present (Primary Dx) Social History Tobacco Use Types [...] Info) Description 04/08/2025 Procedure Pass [facility] [address] [place] [address] 07/30/2025 10:45 AM EST Office Visit [address] [place] [address] Harris Lennon MD [address] [place] [address], [address] [place] [address] 09/09/2025 11:15 AM EST Appointment Echo Lab [address] [place] [address] Stacie Gruber PA-C [address] [place] [address] 09/27/2025 10:40 AM EST Office Visit [facility] 22 [facility] 3rd Floor, [address] [place] [address] Davidson Gunter MD 22 [facility], [address] [place] [address] 02/14/2026 10:10 AM EDT Office Visit [facility] [address] [place] [address] Talon Seth DO 22 [place] [address] [email or web address] documented as of this encounter Results * CT LUMBAR SPINE WITHOUT CONTRAST (07/04/2020 10:39 AM EDT) Anatomical Region Laterality Modality L-spine Computed Tomogra phy 07/04/2020 2:53 PM EDT Impressions 07/04/2020 3:29 PM EDT Evaluation partially limited due to existing hardware and dextrocurvature of the spine.. Multilevel degenerative changes as described above. Narrative 07/04/2020 3:29 PM EDT EXAM: CT LUMBAR SPINE WITHOUT CONTRAST COMPARISON: MR of the lumbar spine on May 31, 2020 HISTORY: Outside Radiology Order; LOW BACK PAIN , S/P FUSION OF SPINE SURGERY 2017 TECHNIQUE: CT of the lumbar spine was obtained without administration of intravenous contrast. Sagittal and coronal reformats were also obtained. Automated exposure control utilized. FINDINGS: Hardware: Posterior fusion hardware at L3-S1. Lateral fusion hardware at L2-L3. Hardware along the right sacroiliac joint. The hardware creates streak artifact that limits local evaluation. ALIGNMENT: Moderate levocurvature of the lumbar spine. Grade 1 anterolisthesis of L2 on L3. VERTEBRAL BODIES: No compression fracture deformity. DISC SPACES: Disc spacer at L2-L3. Marked loss of height of L3 on L4 and L5-S1 disc space with partial fusion of the respective vertebral bodies. Level by level analysis yields the following: L1-2: No significant canal or neuroforaminal stenosis. L2-3: . No significant canal or neuroforaminal stenosis. L3-4: Mild bilateral neuroforaminal stenosis. No significant canal stenosis.. L4-5: Mild bilateral neuroforaminal stenosis. No significant canal stenosis. L5-S1: Mild left neuroforaminal stenosis. Mild canal stenosis. No significant right neuroforaminal stenosis. OTHERS: Atherosclerotic disease with mural plaques and calcifications along the abdominal aorta and iliac arteries are incompletely evaluated. Right renal hypodense lesion, partially included. Nonobstructing left renal stone. Left sacroiliac joint is congruent. Procedure Note Christelle Hernandez MD - 07/04/2020 EXAM: CT LUMBAR SPINE WITHOUT CONTRAST COMPARISON: MR of the lumbar spine on May 31, 2020 HISTORY: Outside Radiology Order; LOW BACK PAIN , S/P FUSION OF SPINESURGERY 2016 TECHNIQUE: CT of the lumbar spine was obtained without administration ofintravenous contrast. Sagittal and coronal reformats were also obtained.Automated exposure control utilized. FINDINGS: Hardware: Posterior fusion hardware at L3-S1. Lateral fusion hardware atL2-L3. Hardware along the right sacroiliac joint. The hardware createsstreak artifact that limits local evaluation. ALIGNMENT: Moderate levocurvature of the lumbar spine. Grade 1anterolisthesis of L2 on L3. VERTEBRAL BODIES: No compression fracture deformity. DISC SPACES: Disc spacer at L2-L3. Marked loss of height of L3 on L4 andL5-S1 disc space with partial fusion of the respective vertebral bodies. Level by level analysis yields the following: L1-2: No significant canal or neuroforaminal stenosis. L2-3: . No significant canal or neuroforaminal stenosis. L3-4: Mild bilateral neuroforaminal stenosis. No significant canalstenosis.. L4-5: Mild bilateral neuroforaminal stenosis. No significant canalstenosis. L5-S1: Mild left neuroforaminal stenosis. Mild canal stenosis. Nosignificant right neuroforaminal stenosis. OTHERS: Atherosclerotic disease with mural plaques and calcificationsalong the abdominal aorta and iliac arteries are incompletely evaluated.Right renal hypodense lesion, partially included. Nonobstructing leftrenal stone. Left sacroiliac joint is congruent. IMPRESSION: Evaluation partially limited due to existing hardware and dextrocurvatureof the spine.. Multilevel degenerative changes as described above. John Cook DO IMG CT XSPECIALTY ORDERABLES Final Result documented in this encounter Visit Diagnoses Diagnosis Low back pain, unspecified back pain laterality, unspecified chronicity, unspecified whether sciatica present- Primary Low back pain, unspecified back pain laterality, unspecified chronicity, unspecified whether sciatica present documented in this encounter Additional Health Concerns Infection Onset Date Last Indicated Resolved Time CoV-Risk 08/21/2022 08/21/2022 09/01/2022 1:23 AM EST CoV-Risk 11/16/2023 11/16/2023 11/27/2023 1:21 AM EDT Assessment Noted Time PHQ-9 Depression Total Score: 15 018 2:17 PM EST PHQ-2 Depression Total Score: 0 05/02/20 20 11:37 AM EDT documented as of this encounter Care Teams Director Public Relationship Specialty Start Date End Date Xuan Ferraro DO [address] [place] [id number] [email or web address] PCP - General 09/15/18 01/15/21 Harris Lennon MD [address] [place], [place] [address] [place] [address] PCP - General Internal Medicine 01/16/21 Xuan Ferraro DO [address] [place] [address] [email or web address] Insurance Assigned Provider 06/09/19 10/06/21 Kory Vogt MD [address] [place] [address] Gastroenterology 10/07/21 Xuan Ferraro DO [address] [place] [address] @[email or web address] Insurance Assigned Provider 06/09/19 12/19/21 Harris Lennon MD [address] [place] [address], [address] [place] [address] [email or web address] Insurance Assigned Provider 12/17/23 Margarita Davidson RN [address] [place] [address], [address] [place] [address] [email or web address] iCMP Power Regulator 06/02/22 06/29/22 Margarita Davidson RN [address] [place] [address], [address] [place] [address] [email or web address] iCMP Power RegulatorCorrection Warden 07/01/22 02/17/25 Jyoti Aviles, OT [address] [place] [address] [email or web address] Transitions Power RegulatorTrench Digging Machine Operator Therapy 12/12/2312/14/23 documented as of this encounter Additional Source Comments The information contained in this document represents components of the legal health record. It is not the complete legal health record.[facility]
--- OUTSIDE RECORDS SUMMARY | 2025-05-21 12:55 | XMS_ITS | Encounter Summary ---
Author Organization [facility] Address [address] [place] [address] Phone Care Team Providers Care Money Market Dealer Name Role Phone Harris Lennon MD Primary Care Provider [phone] Kory Vogt MD Unavailable Harris Lennon MD Unavailable [phone] Margarita Daivdson RN Unavailable [email or web address] Margarita Davidson RN Unavailable [email or web address] Jyoti Aviles OT Unavailable [phone] Encounter Details Date Type Department Care Team (Late st Contact Info) Description 12/24/2021 Procedure Pass [facility] Endoscopy Admitting Dept Virtual Department [address] [place] [id number] Social History Tobacco Use Types Packs/Day Years [...] Info) Description 04/08/2025 Procedure Pass Echo Lab [address] [place] [address] 07/30/2025 10:45 AM EST Office Visit [facility] [address] [place] [address] [place] [address] Harris Lennon MD [address] [place] [address], [address] [place] [address] 09/09/2025 11:15 AM EST Appointment Echo Lab [address] [place] [address] Stacie Gruber PA-C [address] [place] [address] 09/27/2025 10:40 AM EST Office Visit [facility] [address] [place] [address] [address]rd Floor, [address] [place] [address] Davidson Gunter MD [address] [place] [address], [address] [place] [address] 02/14/2026 10:10 AM EDT Office Visit [facility] [address] [place] [address] [place] [address] Talon Seth DO [address] [place] [phone] documented as of this encounter Visit Diagnoses [...] documented as of this encounter Care Teams Money Market Dealer Relationship Specialty Start Date End Date Harris Lennon MD [address] [place] [address], [address] [place] [address] PCP - General Internal Medicine 01/16/21 Kory Vogt MD [address] [place] [phone] Gastroenterology 10/07/21 Harris Lennon MD [address] [place] [address], [address] [place] [address] Insurance Assigned Provider 12/17/23 Margraita Davidson RN [address] [place] [address], [address] [place] [address] [email or web address] iCMP Manager Spanish 06/02/22 06/29/22 Margarita Davidson RN [address] [place] [address], [address] [place] [phone] iCMP Manager SpanishPattern Perforating Machine Operator 07/01/22 02/17/25 Jyoti Aviles, OT [address] [place] [address] [email or web address] Transitions Manager SpanishSpar Machine Operator Helper Therapy 12/12/2312/14/23 documented as of this encounter Additional Source Comments The information contained in this document represents components of the legal health record. It is not the complete legal health record.[facility]
--- OUTSIDE RECORDS SUMMARY | 2025-05-21 12:55 | XMS_ITS | Encounter Summary ---
Author Organization [facility] Address [address] [place] [address] Phone Care Team Providers Care Real Estate Broker Name Role Phone Xuan Ferraro DO Primary Care Provider + [phone] Damien Lance MD Unavailable Xuan Ferraro DO Unavailable [phone] Harris Lennon MD Primary Care Provider + [phone] Kory Vogt MD Unavailable Xuan Ferraro DO Unavailable [phone] Harris Lennon MD Unavailable [phone] Margarita Davidson RN Unavailable [email or web address] Margarita Davidson RN Unavailable [email or web address] Jyoti Aviles OT Unavailable [phone] Reason for Referral * Outpatient Procedure - Closed Specialty Diagnoses / Procedures Referred By Contac t Referred To Contact Diagnoses Aortic valve replaced History of thoracic aortic aneurysm repair Aortic valve stenosis, etiology of cardiac valve disease unspecified Procedures Adult Echo TTE Quincy Lopez MD Phone: tel: fax: mailto:[email or web address] Referral ID Status Reason Start Date Expiration Date Visits Re quested Visits Authorized [id number] Closed 03/26/2019 03/25/2020 1 1 Encounter Details Date Type Department Care Team (Latest Contact Info) Description 03/26/2019 Ancillary [facility] [address] [place] [address] Quincy Lopez MD [address] [place] [address] [place] [address] [email or web address] Aortic valve replaced; History of thoracic aortic aneurysm repair; Aortic valve stenosis, etiology of cardiac valve disease unspecified Social History Tobacco Use Types Packs/Day Years [...] Info) Description 04/08/2025 Procedure Pass Echo Lab [address] [place] [address] 07/30/2025 10:45 AM EST Office Visit [facility] [address] [place] [address] Harris Lennon MD [address] [place] [address], [address] [place] [address] 09/09/2025 11:15 AM EST Appointment Echo Lab [address] [place] [address] Stacie Gruber PA-C [address] [place] [address] 09/27/2025 10:40 AM EST Office Visit [facility] [address] [place] [address] [address] Floor, [address] [place] [address] Davidson Gunter MD [address] [facility], [address] [place] [address] 02/14/2026 10:10 AM EDT Office Visit [facility] [address] [place] [address] Talon Seth DO [address] [place] [address] [email or web address] documented as of this encounter Results * TTE COMPREHENSIVE (03/26/2019 3:21 PM EDT) Anatomical Region Laterality Modality Heart Ultrasound Narrative 03/27/2019 8:39 AM EDT See report Procedure Note Sangita Brandon MD - 03/27/2019 See report us Quincy Lopez MD CV ECHO ORDERABLES Final Result documented in this encounter Visit Diagnoses Diagnosis Aortic valve replaced Heart valve replaced by other means History of thoracic aortic aneurysm repair Other postprocedural status Aortic valve stenosis, etiology of cardiac valve disease unspecified Aortic valve replaced Heart valve replaced by other means History of thoracic aortic aneurysm repair Other postprocedural status Aortic valve stenosis, etiology of cardiac valve disease unspecified documented in this encounter Additional Health Concerns Infection Onset Date Last Indicated Resolved Time CoV-Risk 08/21/2022 08/21/2022 09/01/2022 1:23 AM EST CoV-Risk 11/16/2023 11/16/2023 11/27/2023 1:21 AM EDT Assessment Noted Time PHQ-9 Depression Total Score: 15 018 2:17 PM EST PHQ-2 Depression Total Score: 4 08/21/20 18 2:17 PM EST documented as of this encounter Care Teams Real Estate Broker Relationship Specialty Start Date End Date Xuan Ferraro DO [address] [place] [email or web address] PCP - General 09/15/18 01/15/21 Harris Lennon MD [address] [place] [address], [address] [place] [address] [email or web address] PCP - General Internal Medicine 01/16/21 Damien Lance MD [address] [place] [address] [address] [place] [address] [email or web address] Insurance Assigned Provider 07/16/17 06/09/19 Xuan Ferraro DO [address] [place] [address] [email or web address] Insurance Assigned Provider 06/09/19 10/06/21 Kory Vogt MD [address] [place] [address] [email or web address] Gastroenterology 10/07/21 Xuan Ferraro DO [address] [place] [address] [email or web address] Insurance Assigned Provider 06/09/19 12/19/21 Harris Lennon MD [address] [place] [address], [address] [place] [address] [email or web address] Insurance Assigned Provider 12/17/23 Margarita Davidson RN [address] [place] [address], [address] [place] [address] [email or web address] iCMP Reverberatory Furnace Operator 06/02/22 06/29/22 Margarita Davidson, RN [address] [facility], [address] [place] [address] [email or web address] iCMP Reverberatory Furnace OperatorCommodity Loan Clerk 07/01/22 02/17/25 Jyoti Aviles, OT [address] [place] [address] [email or web address] Transitions Reverberatory Furnace OperatorCane Feeder Therapy 12/12/2312/14/23 documented as of this encounter Additional Source Comments The information contained in this document represents components of the legal health record. It is not the complete legal health record.[facility]
--- OUTSIDE RECORDS SUMMARY | 2025-05-21 12:55 | XMS_ITS | Clinical Summary ---
Author Organization [facility] Address [address] [place] [address] Phone Care Team Providers Care Drafter Chief Design Name Role Phone Harris Lennon MD Primary Care Provider [phone] Kory Vogt MD Unavailable Harris Lennon MD Unavailable [phone] Allergies Active Allergy Reactions Criticality Noted Date Comments Donepezil Diarrhea High 04/17/2018 Nitrofurantoin Monohyd/M-Cryst 08/01 Memantine 03/07/2018 Rage Penicillins Diarrhea 07/28/2017 Oxycodone-Acetaminophen Rash Low 07/18/2017 Sulfa (Sulfonamide Antibiotics) Rash Low 02/2017 Oseltamivir Diarrhea Low 10/05/2017 Medications cholecalciferol (VITAMIN D3) 25 MCG (1,000 unit) tablet Take 1,000 Units by mouth daily. Active estradioL (ESTRACE) 0.01 % (0.1 mg/gram) vaginal cream Place 2 g vaginally. 05/03/20 20 Active cranberry 400 mg Cap capsuleIndicati ons:Gummy Take by mouth. Indications: Gummy Active cyanocobalamin, vitamin B-12, (VITAMIN B12 ORAL) Take by mouth. Activ e biotin 2,500 mcg Cap Take 5,000 mcg by mouth. Active calcium carbonate/vitam in D3 (CALCIUM 600 + D,3, ORAL) Take 2 capsules by mouth daily. Ca-1200mg D3-1000iu Active Lactobac no.41/Bifidobac t no.7 (PROBIOTIC-10 ORAL) Take by mouth. Activ e ascorbic acid, vitamin C, (VITAMIN C) 500 MG tablet Take 1,000 mg by mouth daily. Active GAS RELIEF, SIMETHICONE, ORAL Take 1 tablet by mouth daily as needed. Active psyllium (METAMUCIL) Powd Take 1 teaspoonful by mouth daily. 3 g = 1 teaspoonful (5 mL) Active fluticasone propion-salmete roL (ADVAIR DISKUS) 500-50 mcg/dose DISKUSIndicatio ns:Intermittent asthma INHALE 1 PUFF BY MOUTH TWICE A DAY 180 each 3 07/26/20 22 Active methenamine (HIPREX) 1 gram tablet Take 1 g by mouth 2 (two) times a day with meals. Active magnesium oxide 500 mg Tab Take by mouth. Acti ve acetaminophen (TYLENOL) 650 MG CR tabletIndicatio ns:Spinal stenosis of lumbar region with neurogenic claudication Take 2 tablets (1,300 mg total) by mouth 2 (two) times a day as needed for pain (specific location in comments). 12/11/19 23 Active albuterol 90 mcg/actuation inhaler Inhale 2 puffs into the lungs every 6 (six) hours as needed for wheezing. 6.7 g 11/16/19 24 Active azithromycin (ZITHROMAX) 250 MG tablet TAKE 2 TABLETS BY MOUTH 1 HOUR BEFORE APPOINTMENT 12/26/19 24 Active metoprolol succinate (TOPROL-XL) 25 MG 24 hr tabletIndicatio ns:Paroxysmal atrial fibrillation take 3 tablets by mouth daily 270 tablet 3 07/05/20 24 Active mirtazapine (REMERON) 7.5 MG tabletIndicatio ns:Anxiety,Psyc hophysiological insomnia TAKE 1 TABLET BY MOUTH EVERYDAY AT BEDTIME 90 tablet 3 10/31/19 25 Active alendronate (FOSAMAX) 70 MG tabletIndicatio ns:Other osteoporosis without current pathological fracture Take 1 tablet (70 mg total) by mouth every 7 days. Take in the morning with a full glass of water, on an empty stomach, and do not take anything else by mouth or lie down for the next 30 min. 12 tablet 3 03/18/20 25 Active atorvastatin (LIPITOR) 40 MG tabletIndicatio ns:Hypercholest erolemia Take 1 tablet (40 mg total) by mouth daily. 90 tablet 1 04/09/20 25 Active warfarin (COUMADIN) 2.5 MG tabletIndicatio ns:Paroxysmal atrial fibrillation TAKE 2 TABLETS BY MOUTH ON TUESDAY, TUESDAY, TUESDAY, AND 1 TABLET ON ALL OTHER DAYS, OR DIRECTED BY THE ANTICOAGULATION CLINIC 130 tablet 3 04/12/20 25 Active losartan (COZAAR) 50 MG tabletIndicatio ns:Essential hypertension Take 1 tablet (50 mg total) by mouth daily. 90 tablet 3 05/14/20 25 Active losartan (COZAAR) 50 MG tabletIndicatio ns:Essential hypertension Take 1 tablet (50 mg total) by mouth daily. 04/04/20 25 025 Discontin u([facility]) Hospital, Clinic, or Other Facility Administered Medication Ordered Dose Route Frequency Start Date End Date Status lidocaine (XYLOCAINE) 1% injection 2 mLIndications:Left knee pain 2 mL See Adm Inst Once 05/02/2025 05/03/2025 Ended triamcinolone acetonide (KENALOG-40) 40 mg/mL injection 80 mgIndications:Left knee pain 80 mg See Adm Inst Once 05/02/2025 05/03/2025 Ended Active Problems Problem Noted Date Diagnosed Date Normocytic anemia 01/25/2024 Assessment & Plan (09/06/2024 12:54 PM EST): Hemoglobin had normalized when last checked, if back to normal, will resume CBC monitoring every 6 months Assessment & Plan (01/25/2024 11:40 AM EDT): Associated with acute illness when she was hospitalized. Hopefully hemoglobin will be back to normal. Will also recheck iron stores. May need further evaluation depending on results. Dysuria 01/17/2024 Assessment & Plan (01/17/2024 2:39 PM EDT): Urine is orange today though she notes her last dose of AZO was 8+ hours ago. Nitrites may be inaccurate but there is still WBC and 1+ blood. Will treat presumptively. I did send a culture given her listed antibiotic allergies and contributory dementia. They will call with fever or chills, worsening discomfort. Cephalexin prescribed as she seems to have tolerated this in the past. Continue to push fluids. Seborrheic keratosis 12/10/2022 Assessment & Plan (12/10/2022 1:47 PM EDT): Areas of concern are benign either melanocytic nevi or seborrheic keratoses in various areas. Unless she notes a significant change, no further evaluation is needed Other osteoporosis without current pathological fracture 10/04/2022 Assessment & Plan (03/18/2025 10:26 AM EDT): The patient has significant improvement in bone mineral density in the right hip. Other measurements remain stable. Will continue alendronate 70 mg. Bone markers show appropriate decrease in levels indicating decreased bone resorption and increased bone buildup. Will continue current management with alendronate. She should repeat lab work 2 weeks prior to the follow-up visit and must be done fasting first thing in the morning. Assessment & Plan (01/04/2023 12:55 PM EDT): This is a patient with multiple risk factors for osteoporosis as indicated in the HPI. However I did not find any secondary causes of osteoporosis. She is getting adequate calcium and vitamin D supplements. However N-telopeptide bone turnover marker is elevated indicating that she has increased bone resorption. Today I discussed medications to prevent bone resorption which include bisphosphonate such as alendronate/Fosamax and Reclast. I also discussed the rank ligand antagonist such as Prolia. I explained how these medications are taken. She informs me that what works best for her would be to take Fosamax/alendronate. I did explain that this medication is taken once a week on an empty stomach and she must remain upright for 30 minutes and not eat for 30 minutes after taking the medication. She is due for repeat DXA scan in February 2023. I informed her that she will not see any changes in bone mineral density from the use of this medication because she has to be taking it at least 2 years for the results to be seen. I will give the patient a follow-up appointment in 1 year but because she is getting her DXA scan done in approximately 2 months I asked her to just call in for the results. Assessment & Plan (10/04/2022 1:50 PM EST): This is a patient diagnosed with osteopenia in 2017 who progressed to osteoporosis by 2019. Her risk factors for osteoporosis include age, early surgical menopause, remote tobacco use, use of intra-articular corticosteroids, anticoagulants, and topiramate. She has had 3 inch decrease in height and 1 traumatic fracture. She is currently getting adequate calcium intake she is either getting 1200 mg of calcium but I do know how much elemental calcium in his diet and that or maybe 600 mg of calcium. She is getting an additional 720 mg of calcium on average in her diet so the calcium seems to be adequate. Her vitamin D level when last checked was in the reference range so vitamin D is accurate. At this point I am requesting biochemical evaluation for secondary causes of osteoporosis. Her forearm T score is quite elevated. I did not see elevated serum calcium levels but I would like to check for primary hyperparathyroidism with PTH levels. I also requested 24-hour urine calcium, comprehensive serum protein electrophoresis and bone turnover markers. She will return for follow-up in 3 months. Primary osteoarthritis of both knees 08/31/2022 Assessment & Plan (05/02/2025 10:25 AM EDT): Knee is her primary concern. Will get injection and hopefully have improvement in pain at that point but she is advised and aware to call our office if symptoms persist or worsen. Assessment & Plan (04/09/2025 10:49 AM EDT): I agree with orthopedics that she would likely benefit from a steroid injection. She can hold warfarin for 3 days prior to an injection and then restart the day after the injection as long as she is doing well. Her will contact orthopedics for an appointment. Assessment & Plan (03/07/2025 11:08 AM EDT): Well taking Tylenol a couple of times daily Assessment & Plan (08/31/2022 10:12 AM EST): She has small effusions in her knees due to mild osteoarthritis. She is having minimal amount of symptoms. No intervention is needed. She can use acetaminophen as needed when she has pain. History of repair of thoracic aortic aneurysm Overview (10/07/2021): This patient is followed for a atrial fibrillation, vascular, and valvular disease, previously by Dr. Allen Quevedo. 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 Cardiac catheterization has shown that she is free of occlusive disease. 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 Her dramatic presentation was proceeded by paroxysmal fibrillation since 2012 as well as long-standing essential hypertension. EKGs have shown nonspecific abnormalities and an intermittent LBBB. Echocardiography December 2016 remains stable ejection fraction 60%, normal aortic, and prosthetic valve with mean gradient less than 15 mmHg. Holter monitor 2016 was essentially normal with an average rate of 60. Abdominal ultrasound 2017 with chronic dissection, stable relative to CT scanning. CT scan 2017 remains stable with no aneurysm formation of the chronic dissection. 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 The patient will meet with Dr. Skelton in the [facility] system for continued management of her aortic aneurysm. Assessment & Plan (12/23/2021 9:13 AM EDT): She has a history of a thoracic aortic aneurysm status post grafting. She reports that she has overall felt well. She has not had any chest pain. EKG in the office today is essentially unchanged compared to previous. Her CT scan was done last May and was unchanged compared to the previous in 2017. Acquired melanocytic nevus 02/07/2021 Assessment & Plan (02/07/2021 7:27 PM EDT): This pattern of hyperpigmentation is normal. I see no reason to have a biopsy. If she notes any significant progression of the lesion she will let me know. Mild persistent asthma without complication 01/11 Overview (12/23/2023): Only uses Advair seasonally related to allergies. Assessment & Plan (03/07/2025 11:08 AM EDT): Well-controlled, continue current medication Assessment & Plan (02/04/2022 9:32 AM EDT): Well-controlled, continue current medication Assessment & Plan (02/07/2021 7:30 PM EDT): As is well controlled, continue current medication. Primary localized osteoarthrosis of left lower l eg 06/13/2020 Assessment & Plan (09/06/2024 12:55 PM EST): X-ray did not show significant osteoarthritis, she may have a cartilaginous injury. Steroid injection may be helpful, she is referred to orthopedics. Assessment & Plan (06/13/2020 3:05 PM EDT): Patient is currently endorsing severe left-sided leg pain that has been happening for the last few weeks to months. She has had a thoracic and lumbar MRI showing significant disc disease at multiple levels. Pulses still palpable in the distal extremities. I reviewed MRI results with Dr. Lopez today and we have decided to proceed with an MECHELLE study to ensure that there is not an arterial component playing into her symptoms. At this time, it seems that the pain is likely neurogenic as it is happening when the patient is just standing and is less likely claudication. However, we will ensure this with an MECHELLE study. 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 I do not see any evidence of a superficial phlebitis. She certainly does not have a DVT. At this point her symptoms are much better. It may have gotten better because of stopping using the knee brace. At this point no treatment is needed other than I would avoid using the knee brace. Fecal incontinence 05/02/2020 Assessment & Plan (05/02/2020 12:06 PM EDT): The combination of her symptoms including fecal incontinence, urinary tract infections which could be a sign of urinary retention, and some weakness in her left leg could be due to neurological issue. Her exam today though is completely normal and I suspect this has more to do with poor muscle tone related to aging. She will follow-up next week with her PCP to evaluate this further. Dissecting aortic aneurysm, abdominal 07/18/2017 Overview (02/04/2022): Stable on CT 12/2021 Assessment & Plan (04/10/2025 7:09 AM EDT): 2016. She remains asymptomatic. She follows with [facility] Dr. Skelton whom she most recently saw 01/09/2025 whom reviewed her CTA and stated stability. She was recommended a 2-year follow-up with a surveillance CT. Assessment & Plan (02/04/2022 9:32 AM EDT): Stable and she is on the appropriate medication to reduce the risk of progression. Continue to follow clinically. Assessment & Plan (02/10/2018 6:06 PM EDT): Status post ascending aortic dissection grafting repair also with known chronic abdominal aortic dissection without aneurysm not affecting the renal arteries. Heart rate and blood pressure well-controlled. She denies any abdominal or back pain. Lower extremities warm and well-perfused. She is experiencing some lightheadedness and describes orthostatic symptoms likely due to increase metoprolol. Recommended that she go back to 50 mg once a day. Recommend repeat EKG in follow-up for resolution of first degree heart block. Will also order yearly surveillance abdominal ultrasound for stability. Assessment & Plan (10/13/2017 3:40 PM EST): Chronic process. She is no evidence of acute blood loss however her H&H is down. Vitamin K successfully reversed her INR and it is now on the therapeutic range. As she is dropping her hemoglobin continue to hold Coumadin. - Check INR in a.m. Assessment & Plan (08/02/2017 1:44 PM EST): Blood pressure control and surveillance. Root's esophagus 07/18/2017 GERD (gastroesophageal reflux disease) 7 Assessment & Plan (12/09/2023 7:37 PM EDT): Continue PPI Assessment & Plan (10/12/2017 8:02 PM EST): Continue Protonix. History of aortic valve replacement with porcine valve 07/18/2017 Assessment & Plan (04/10/2025 7:06 AM EDT): status post bioprosthetic AVR- Bass bovine bioprosthesis. Echo shows well-functioning valve. Will repeat in 6 months. Patient remains asymptomatic. Assessment & Plan (03/07/2025 11:09 AM EDT): Valve seems to be functioning normally Assessment & Plan (06/22/2023 1:48 PM EDT): Valve seems to be functioning normally. Follow-up as planned with cardiology Assessment & Plan (01/24/2023 1:47 PM EDT): Clinically she is doing well, continue to follow up with cardiology Assessment & Plan (12/10/2022 1:48 PM EDT): She is doing well, continue anticoagulation. I asked her to have her INR checked next week because she has been taking more acetaminophen recently. Assessment & Plan (08/09/2022 2:21 PM EST): She had an aortic valve replacement in 2016. Most recent echocardiogram showed that her valve is functioning properly. We will set her up for a repeat echocardiogram in 1 year. Assessment & Plan (06/18/2022 1:43 PM EDT): Valve seems to be functioning properly, continue anticoagulation Assessment & Plan (12/23/2021 9:03 AM EDT): She has a history of an aortic valve replacement years ago. Her last echocardiogram done in 2019 showed that her aortic valve is functioning properly. We will repeat an echocardiogram. Assessment & Plan (10/07/2021 3:31 PM EST): Clinically she is doing well. Continue follow-up as planned with cardiology Assessment & Plan (02/07/2021 7:29 PM EDT): Valve seems to be functioning normally. Continue to follow clinically. Assessment & Plan (05/29/2018 2:38 PM EDT): Doing quite well with cardiovascular stability. Reviewed the February echocardiogram showing normal aortic valve replacement with an ejection fraction of 55-60% no pericarditis. Assessment & Plan (02/10/2018 6:02 PM EDT): Normal functioning valve as of December 2016 echocardiogram. We will continue with yearly surveillance echocardiogram of her bioprosthetic aortic valve. She denies any chest pain, dyspnea on exertion, syncope, or signs or symptoms of CHF. Follow-up in 6 months after repeat echo. Assessment & Plan (10/12/2017 8:02 PM EST): Outpatient management with Dr Oleary History of temporal arteritis 07/18/2017 Assessment & Plan (02/24/2021 1:45 PM EDT): History of biopsy-proven temporal arteritis but patient's shows no elevation of acute phase reactants and she has no signs or symptoms referable to the temporal artery distribution. No visits with results within 3 Month(s) from this visit. Latest known visit with results is: Telephone on 11/18/2020 Component Date Value Ref Range Status External Or Transcribed PT-INR 11/18/2020 1.9 Final Assessment & Plan (11/29/2018 5:12 PM EDT): The patient did receive a prolonged course of glucocorticoids, I did again review her biopsy from 2014 which was negative bilaterally. I also reviewed her most recent acute phase reactant showing a C-reactive protein normal at 1.7 with a sedimentation rate of 18 which was normal as well. Her sodium was low at 130 but she has run low sodium as before. Her hemoglobin was stable at 12.1 with a white count of 6400 with a normal differential. Can say with any degree of certainty that we are dealing with active temporal arteritis. She would need a second biopsy on the left side to be sure but I will hold off on this for now. I would like to get an MRI scan of her brain to see if there is any ready explanation for the recurrent severe left temporal headaches. Consideration may be given to an MRA as well. I will get back to her after review of the MRI scan and she will call me if she has any changes in her vision or any change in the character of the headache. If this occurs I will empirically place her on prednisone at 1 mg/kg until we get a temporal artery biopsy but not right now. All of her questions were answered. Assessment & Plan (10/02/2018 2:05 PM EST): No signs or symptoms of active vasculopathy so we will stop prednisone. I reviewed her lab work showing a sedimentation rate of 6 with a C-reactive protein of 1.2 both of which are reassuring. Also her glucose was 101 with an AST of 25 and ALT of 21. Patient will have new lab work when I see her after she has been off the prednisone for 6 weeks. She will call me for any new onset of proximal myalgias or any new symptoms around the head or neck and let me know when and if she sees the vascular specialist in any decision is made regarding new surgery. Assessment & Plan (07/31/2018 3:07 PM EST): No signs or symptoms of active giant cell arteritis or polymyalgia rheumatica. Reviewed recent lab work showing C-reactive protein 6.4, creatinine 0.6, glucose 108, AST 21, ALT 23, hemoglobin 12.3, white count 8000 with normal differential and hematocrit 38.2. Urine culture and sensitivity from March showed a pure culture of E. coli. Posttreatment urinalysis was clear. Assessment & Plan (05/29/2018 2:37 PM EDT): No signs or symptoms of active temporal arteritis so we will reduce prednisone 5 mg daily to milligrams alternating with 4 mg for 1 month and 4 mg daily then 3 mg alternating with 4 mg for 3 weeks and 3 mg daily and then a follow-up visit. Recent lab work showed a C-reactive protein of 6.4 with a glucose of 108 and an alkaline phosphatase of 43 with an AST of 20 and an ALT of 14. Her hemoglobin was 12 with a hematocrit of 38.2. No signs or symptoms of PMR. Assessment & Plan (03/02/2018 1:01 PM EDT): No signs or symptoms of giant cell arteritis. She has taper successfully down to 5 mg of prednisone a day. Assessment & Plan (12/19/2017 3:34 PM EDT): She is now on 25 mg of prednisone as a single morning dose. There are no signs or symptoms of active joint cell arteritis. I reviewed lab work showing a sedimentation rate of 5 with a C-reactive protein of 0 and hemoglobin of 10.8 with an AST of 21 and an ALT of 23 with a B1 of 20 and a creatinine of 0.6. I will give her 5 mg tablets of prednisone and she will reduce to 20 mg daily for 3 weeks then 17.5 mg daily for 2 weeks then 15 mg daily until her next appointment in 6 weeks and prior to that visit she will have her sedimentation rate and C-reactive protein drawn again. We discussed the possibility of using methotrexate or Actemra as a steroid sparing drug if she again has a flare of her temporal arteritis. Assessment & Plan (11/16/2017 10:24 AM EST): Symptoms have improved and there is no headache, diplopia or jaw claudication. She is having some increasing palpitations and elevated systolic blood pressure likely exacerbated by the prednisone. She has an appointment with her primary care physician in a few weeks. She will monitor her blood pressure at home. She will stay on a strict sodium restricted diet. She will continue lisinopril at 10 mg daily and I refilled that for her today. I reviewed with her lab work done 2 days ago showing a sedimentation rate of 1 with a hemoglobin of 10 and a hematocrit of 30.5 with a white count of 8000 with a normal differential and a creatinine of 0.5. Assessment & Plan (11/01/2017 9:55 AM EST): Clinically much improved with marked reduction in headache and no longer any chest discomfort. Tolerating 80 mg prednisone well without dyspepsia. She is to stay on 80 mg through November 11 then reduce to 60 mg and see me on November 17. On November 16 she will have a repeat sedimentation rate and CBC. She will call me for any change in clinical status. I reviewed with her lab work done yesterday showing a rise in her hemoglobin to 10.2 and a drop in her sedimentation rate from 81-4 with a calcium of 8.6 and glucose of 77. Assessment & Plan (10/28/2017 6:14 PM EST): With recent onset of periorbital pain, jaw claudication, headache, scalp tenderness, posterior neck pain, history of dissecting vasculitic thoracic aneurysm, and steep rise and sedimentation rate, she has a flare of active joint cell arteritis which has been only partially suppressed using high-dose prednisone. She is now on 60 mg as a single morning dose using 20 mg of omeprazole as a gastroprotective agent and generally has been tolerating it well. Her blood pressure is elevated so I have increased her lisinopril from 5 mg daily to 10 mg daily and we'll continue her on metoprolol and increasing her prednisone to 80 mg a day. She will have her CBC, sedimentation rate, and C-reactive protein as well as a metabolic profile done on Tuesday and I will see her next Tuesday. She is to stay on some sodium restriction and keep well hydrated and to call me with any changes in vision or change in clinical status. Depending upon her acute phase reactants and symptomatology, initiating a Solu-Medrol pulse intravenously may be necessary and long-term adding azathioprine or methotrexate as a steroid sparing drug and as an additional therapy for active vasculitis. All of her questions were answered. Greater than 50% of this 30 minute visit was spent in [id number] conversation with the patient going over her recent lab work from 20 October showing a sedimentation rate of 81 with a hemoglobin of 9.6 and a white count of 7000 with a shift to the left and a normal chemistry profile with a creatinine of 0.5. Her anemia is also being worked up by her primary care physician and she did leave with the laboratory today Hemoccult cards. Hypercholesterolemia 07/18/2017 Assessment & Plan (04/10/2025 7:11 AM EDT): They are unsure if taking atorvastatin as it is not on their home med list. They are going to check on this and let me know. LFTs were previously normal. Lipids previously showed an LDL of 85. She has had a cardiac cath in the past showing no obstructive CAD. Assessment & Plan (12/23/2023 2:08 PM EDT): Lipids have not been checked in a few years. I suspect she was on medication in the past but has not taken in a few years. She has no history of cardiovascular disease and there is little evidence of benefit of primary prevention person with her comorbidities and therefore I do not recommend restarting atorvastatin or ezetimibe. Assessment & Plan (10/13/2017 3:38 PM EST): Essential hypertension 07/18/2017 Assessment & Plan (05/02/2025 10:25 AM EDT): BP improved on increased dose of Losartan. No side effects noted. She will continue on current dose and f/u with PCP in 3 months to reassess. Assessment & Plan (04/10/2025 7:10 AM EDT): Continue current medications and doses. Assessment & Plan (04/09/2025 10:49 AM EDT): Dose of losartan was increased last week. She will continue the same and follow- up as planned in a few weeks. Assessment & Plan (04/04/2025 10:07 AM EDT): BP consistently running above goal. Will increase losartan to 50mg and pt will follow up with cardiology early next week as planned. Will schedule follow up telemed to further assess response to medication increase in ~one month. Pt and verbalized understanding, agreeable to plan. Orders: losartan (COZAAR) 50 MG tablet; Take 1 tablet (50 mg total) by mouth daily. Assessment & Plan (03/07/2025 11:08 AM EDT): Today's office blood pressure is higher than usual. I asked her to check her blood pressure at home 2 or 3 times per week and we will review her blood pressure results at her virtual visit in a month or so. If her blood pressure continues to run on average greater than 130/80, she will need a medication adjustment. She should continue following a low-sodium diet. Assessment & Plan (09/06/2024 12:54 PM EST): Well-controlled, continue current medication Assessment & Plan (12/23/2023 2:08 PM EDT): Blood pressure is well-controlled, continue current medication. Assessment & Plan (12/09/2023 7:37 PM EDT): Blood pressures reasonably well-controlled Continue losartan and metoprolol Assessment & Plan (06/22/2023 1:48 PM EDT): Well-controlled, continue current medication Assessment & Plan (01/24/2023 1:47 PM EDT): Well-controlled, continue current medication Assessment & Plan (08/09/2022 2:21 PM EST): Blood pressure in the office today is adequately controlled. No medication changes. Assessment & Plan (06/18/2022 1:45 PM EDT): Blood pressure today is running a bit too high and I think this is likely due to anxiety. Asked her to check her blood pressure at home 2 or 3 times a week and bring a record to her appointment scheduled with cardiology next week. Assessment & Plan (02/04/2022 9:32 AM EDT): Well-controlled, continue current medication Assessment & Plan (12/23/2021 9:04 AM EDT): Blood pressure in the office today is adequately controlled on her current medications. No med changes. Assessment & Plan (10/07/2021 3:32 PM EST): Well-controlled, continue current medication. Assessment & Plan (02/07/2021 7:29 PM EDT): Hypertensions well controlled, continue current medication. Assessment & Plan (07/31/2018 3:07 PM EST): Under good control on current medications. Assessment & Plan (02/10/2018 6:09 PM EDT): Well-controlled today. She does admit to some orthostatic hypotensive symptoms. I will decrease her metoprolol back to 50 mg daily. Will continue to monitor for goal SBP less than 120 with her history of dissection. Assessment & Plan (10/12/2017 8:03 PM EST): Blood pressure currently well-controlled. Continue outpatient regimen with metoprolol and lisinopril. Assessment & Plan (08/02/2017 1:44 PM EST): Managed by PCP. Taking beta kimberlee and AMY inhibitor. Left rotator cuff tear arthropathy 07/18/2017 Assessment & Plan (01/23/2019 3:04 PM EDT): Acute flare of left rotator cuff pathology with impingement of the supraspinatus tendon. Pendulum and wall walking motion exercises given. Intra-articular steroid today. Lumbar spinal stenosis 07/18/2017 Assessment & Plan (10/07/2021 3:32 PM EST): She has a recent flare which is most likely muscular strain. I gave her some exercises and she will consider working with her son who is a physical therapist. She should continue using a walker due to her gait instability. 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 She is at high risk for fall and fracture. Discussed strategies to prevent falls. She will continue to use the walker for support. She is in the middle of neurological work-up. Assessment & Plan (04/14/2020 2:32 PM EDT): Left lower extremity weakness secondary to lumbar radiculopathy from well- documented lumbar spinal stenosis. Reviewed previous MRI indicating lateral recess and central canal stenosis despite surgical changes. Will refer to physical therapy. Pain medicine to continue unchanged. If no improvement in strength and exercise tolerance we will get a new MRI scan of the lumbar spine. Assessment & Plan (11/26/2019 3:32 PM EDT): No evidence of neurogenic claudication or radiculopathy but continues to have multilevel spinal pain. After full discussion of risks and benefits I will put her back on duloxetine at 30 mg daily. Risks and benefits were discussed. Follow-up by phone call in 2 weeks for a progress report. Assessment & Plan (03/02/2018 1:00 PM EDT): She does not have neurogenic claudication, she does have significant pain in multiple segments of her spine from discogenic disease and facet arthropathy. In addition to the when necessary use of tramadol and Tylenol and local heat she will investigate the use of CBD oil. Many questions were asked regarding this form of treatment and as long as she doesn't combust the cannabis I feel that this is a potentially good form of treatment for her. Assessment & Plan (12/19/2017 3:31 PM EDT): Worsening low back pain without a clear neurogenic radicular component and because she's had 2 back surgeries, the last one 2 years ago I'm referring her back to her spinal surgeon, Dr. Theodore Barronfor further evaluation and treatment. Ophthalmic migraine 07/18/2017 Mild recurrent major depression 07/18/2017 Overview (10/07/2021): Medications managed by psychiatrist in [place] Assessment & Plan (03/07/2025 11:10 AM EDT): Mood is doing well and she is sleeping well. She is tolerating medication well. Continue current treatment. Assessment & Plan (01/24/2023 1:49 PM EDT): Doing well, continue current medication Nontraumatic rupture of tendon of left wrist 02/2017 Age-related osteoporosis wit hout current pathological fracture 07/18/2017 Assessment & Plan (03/07/2025 11:10 AM EDT): Doing well with current treatment. She will recheck her bone density later this year and follow-up as planned with endocrinology Assessment & Plan (11/06/2024 11:16 AM EST): The patient has osteoporosis and had decreased bone mineral density in the hip. But she had only been on alendronate for 2 months at the time. She is scheduled for repeat DXA scan on 03/11/2025 and that will be closer to a year of being on alendronate. Ever since she has been taking alendronate her CTX levels is on the lower side of normal indicating decreased bone resorption. She continues with calcium and vitamin D supplements she does have a follow-up with me on 03/18/2025 and will review her DXA scan at that time. Assessment & Plan (09/06/2024 12:54 PM EST): Clinically doing well, follow-up as planned with endocrinology Assessment & Plan (12/05/2023 9:16 AM EDT): The patient had a significant decrease in bone mineral density of the femoral neck. However she had only been on alendronate for 2 months upon repeating DXA scan. So I do not think that we see any of the benefits from alendronate over the short period of time. We will have to wait at least another year by 03/08/2025 and to see any potential benefit from antiresorptive medications. I will request DXA scan today. Informed the patient that she must contact the radiology at least 8 months prior to schedule the study to get it done in a timely manner. Will continue alendronate. Patient was advised to continue vitamin D and calcium supplements. I requested CTX level for follow-up visit in 11 months. Also suggested that she can try to obtain N-telopeptide and procollagen levels that was requested last year but this has to be done fasting. Assessment & Plan (06/22/2023 1:53 PM EDT): She was seen by endocrinology and recommend starting treatment after her last bone density. 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 Assessment & Plan (06/18/2022 1:44 PM EDT): Continue current calcium supplementation. Referred to endocrine to consider restarting Prolia Assessment & Plan (04/28/2022 5:25 PM EDT): 76 yo post menopausal female Known OP by DEXA Hx of left wrist colles fracture Previously in fosamax developed erosive esophagitis -required hospitalizations Calcium supplements (1200 mg /day) and Vit D supplements (1000 IU daily) with therapeutic levels Risk factors for future fracture, including preventive measures were discussed Pt has decided she does not want to have any more Prolia injections She will continue her supplementations, WB activity and fall prevention Assessment & Plan (04/01/2022 9:15 PM EDT): 76 yo post menopausal female Known OP by DEXA Hx of left wrist fracture Previously treated with fosamax developed erosive esophagitis -required hospitalization Transitioned to Prolia first dose 05/2021 and second dose 12/03/21 tolerated well without side effects She has decided against receiving any further Prolia injections or any other tx for OP due to fear of side effects. It is recommended that Prolia be continued indefinitely , to prevent loss of BMD that has been gained while on treatment Pt declines any treatment at this time She agrees to continue calcium supplements (1200 mg /day) and Vit D supplements (1000 IU daily) WB exercises encouraged Assessment & Plan (12/06/2021 1:20 PM EDT): 76 yo post menopausal female Known OP by DEXA Hx of left wrist colles fracture Previously in fosamax developed erosive esophagitis -required hospitalizations Calcium supplements (1200 mg /day) and Vit D supplements (1000 IU daily) with therapeutic levels Risk factors for future fracture, including preventive measures were discussed Prolia injection today-see procedure note DEXA will be obtained in: . Assessment & Plan (06/03/2021 1:38 PM EDT): Bone density reviewed. Fall and fracture prevention strategies discussed. 25 hydroxy vitamin D level is therapeutic. Administer Prolia today. Assessment & Plan (02/24/2021 1:45 PM EDT): She tolerated her last Prolia injection and she will receive another one 6 months after the last one. Vitamin D level will be measured. Bone densitometry was reviewed and new one is ordered. Fall and fracture prevention strategies discussed. Results for orders placed or performed during the hospital encounter of 05/18/19 (from the past 24767 hour(s)) DXA Monitoring Addendum: 05/25/2019 In addition to osteoporosis in the right forearm there is osteopenia in both hips. Narrative This is a 73-year-old postmenopausal patient with 2 inches of height loss reported. Evaluation of the right forearm and both hips is obtained and appears appropriate. The patient has had prior lumbar spine surgery and therefore the lumbar spine cannot be assessed. The right forearm discloses a total bone mineral density of 0.410 g/cm2 with a T-score of -3.0. This is in the osteoporosis range. The change in bone mineral density since 05/17/2017 is -8.5% and is significant. The right hip has a total bone mineral density of 0.742 g/cm2 with a T-score of -1.6. This is in the osteopenia range. The change in bone mineral density since 05/17/2017 is -5.2% and is significant. The left hip has a total bone mineral density of 0.806 g/cm2 for a T-score of - 1.1. This is in the osteopenia range. The change in bone mineral density since 05/17/2017 is 0.9% and is not significant. Impression Osteoporosis evident in the right forearm with osteopenia in the right hip. There has been a statistically significant decrease in bone density in the right forearm and right hip since the last exam. S/S: - OSTEOPENIA [KNOWN DX] estrogen deficiency, bone density screening, height loss, osteoporosis POS - [id number] Assessment & Plan (11/18/2020 1:48 PM EST): Previous bone density reviewed and new bone density will be done in May. Prolia injection today. Vitamin D level is therapeutic. Results for orders placed or performed during the hospital encounter of 05/18/19 (from the past 87011 hour(s)) DXA Monitoring Addendum: 05/25/2019 In addition to osteoporosis in the right forearm there is osteopenia in both hips. Narrative This is a 73-year-old postmenopausal patient with 2 inches of height loss reported. Evaluation of the right forearm and both hips is obtained and appears appropriate. The patient has had prior lumbar spine surgery and therefore the lumbar spine cannot be assessed. The right forearm discloses a total bone mineral density of 0.410 g/cm2 with a T-score of -3.0. This is in the osteoporosis range. The change in bone mineral density since 05/17/2017 is -8.5% and is significant. The right hip has a total bone mineral density of 0.742 g/cm2 with a T-score of -1.6. This is in the osteopenia range. The change in bone mineral density since 05/17/2017 is -5.2% and is significant. The left hip has a total bone mineral density of 0.806 g/cm2 for a T-score of - 1.1. This is in the osteopenia range. The change in bone mineral density since 05/17/2017 is 0.9% and is not significant. Impression Osteoporosis evident in the right forearm with osteopenia in the right hip. There has been a statistically significant decrease in bone density in the right forearm and right hip since the last exam. S/S: - OSTEOPENIA [KNOWN DX] estrogen deficiency, bone density screening, height loss, osteoporosis POS - [id number] Assessment & Plan (04/14/2020 2:33 PM EDT): Bone densitometry reviewed in detail as well as the natural history of osteoporosis and her particular risk for fall and fracture. Lower extremity muscle strengthening, paying attention to her visual acuity, receiving 60 mg of Prolia today and then 6 months later, compliance with vitamin D3 at 1000 units daily and measuring her level to make sure she has a therapeutic level and keeping a check on her progress with bone density studies were discussed today. Results for orders placed or performed during the hospital encounter of 05/18/19 (from the past 81247 hour(s)) DXA Monitoring Addendum: 05/25/2019 In addition to osteoporosis in the right forearm there is osteopenia in both hips. Narrative This is a 73-year-old postmenopausal patient with 2 inches of height loss reported. Evaluation of the right forearm and both hips is obtained and appears appropriate. The patient has had prior lumbar spine surgery and therefore the lumbar spine cannot be assessed. The right forearm discloses a total bone mineral density of 0.410 g/cm2 with a T-score of -3.0. This is in the osteoporosis range. The change in bone mineral density since 05/17/2017 is -8.5% and is significant. The right hip has a total bone mineral density of 0.742 g/cm2 with a T-score of -1.6. This is in the osteopenia range. The change in bone mineral density since 05/17/2017 is -5.2% and is significant. The left hip has a total bone mineral density of 0.806 g/cm2 for a T-score of - 1.1. This is in the osteopenia range. The change in bone mineral density since 05/17/2017 is 0.9% and is not significant. Impression Osteoporosis evident in the right forearm with osteopenia in the right hip. There has been a statistically significant decrease in bone density in the right forearm and right hip since the last exam. S/S: - OSTEOPENIA [KNOWN DX] estrogen deficiency, bone density screening, height loss, osteoporosis POS - [id number] Assessment & Plan (11/26/2019 3:31 PM EDT): Patient will continue on vitamin D3. Her vitamin D level is therapeutic. Fall and fracture prevention strategies were discussed. She was taken off her alendronate while in the hospital. I will reconsider Leanna if we can get this approved. Results for orders placed or performed during the hospital encounter of 05/18/19 (from the past 62328 hour(s)) DXA Monitoring Addendum: 05/25/2019 In addition to osteoporosis in the right forearm there is osteopenia in both hips. Narrative This is a 73-year-old postmenopausal patient with 2 inches of height loss reported. Evaluation of the right forearm and both hips is obtained and appears appropriate. The patient has had prior lumbar spine surgery and therefore the lumbar spine cannot be assessed. The right forearm discloses a total bone mineral density of 0.410 g/cm2 with a T-score of -3.0. This is in the osteoporosis range. The change in bone mineral density since 05/17/2017 is -8.5% and is significant. The right hip has a total bone mineral density of 0.742 g/cm2 with a T-score of -1.6. This is in the osteopenia range. The change in bone mineral density since 05/17/2017 is -5.2% and is significant. The left hip has a total bone mineral density of 0.806 g/cm2 for a T-score of - 1.1. This is in the osteopenia range. The change in bone mineral density since 05/17/2017 is 0.9% and is not significant. Impression Osteoporosis evident in the right forearm with osteopenia in the right hip. There has been a statistically significant decrease in bone density in the right forearm and right hip since the last exam. S/S: - OSTEOPENIA [KNOWN DX] estrogen deficiency, bone density screening, height loss, osteoporosis POS - [id number] Assessment & Plan (05/07/2019 1:38 PM EDT): Patient with osteoporosis at high risk for fall and fracture. She has been instructed on strategies to prevent falls. She will continue on 70 mg of alendronate weekly. We will check a 25 hydroxy vitamin D level. She will have a bone densitometry done next month. I will call her with the results of the advisability of this regimen. Previous lab work was reviewed. Hospital Outpatient Visit on 04/27/2019 Component Date Value Ref Range Status COLOR 04/27/2019 Yellow Yellow Final CLARITY 04/27/2019 HAZY Final GLUCOSE 04/27/2019 Negative Negative Final BILI 04/27/2019 Negative Negative Final KETONES 04/27/2019 Negative Negative Final SPECIFIC GRAVITY 04/27/2019 1.010 1.005 - 1.030 Final BLOOD 04/27/2019 Negative Negative Final PH 04/27/2019 7.0 5.0 - 8.0 Final Protein-UA 04/27/2019 Negative Negative Final NITRITE 04/27/2019 Negative Negative Final Leukocyte esterase, ur 04/27/2019 2+* Negative Final Special Requests 04/27/2019 None Final GRAM STAIN 04/27/2019 Rare GRAM NEGATIVE RODS , Few WBC'S Final Urine Culture 04/27/2019 >100,000 colony forming units per mL CITROBACTER FREUNDII* Final WBC 04/27/2019 50-100* NONE SEEN /hpf Final RBC 04/27/2019 0-2* NONE SEEN /hpf Final URINE EPITHELIAL 04/27/2019 NONE SEEN NONE SEEN Final MUCUS 04/27/2019 Trace* NONE SEEN /hpf Final BACTERIA 04/27/2019 3+* NONE SEEN Final Hospital Outpatient Visit on 04/10/2019 Component Date Value Ref Range Status COLOR 04/10/2019 Yellow Yellow Final CLARITY 04/10/2019 HAZY Final GLUCOSE 04/10/2019 Negative Negative Final BILI 04/10/2019 Negative Negative Final KETONES 04/10/2019 Negative Negative Final SPECIFIC GRAVITY 04/10/2019 1.010 1.005 - 1.030 Final BLOOD 04/10/2019 Negative Negative Final PH 04/10/2019 6.5 5.0 - 8.0 Final Protein-UA 04/10/2019 Negative Negative Final NITRITE 04/10/2019 Negative Negative Final Leukocyte esterase, ur 04/10/2019 1+* Negative Final WBC 04/10/2019 5-10* NONE SEEN /hpf Final RBC 04/10/2019 NONE SEEN NONE SEEN /hpf Final URINE EPITHELIAL 04/10/2019 NONE SEEN NONE SEEN Final MUCUS 04/10/2019 NONE SEEN NONE SEEN /hpf Final BACTERIA 04/10/2019 1+* NONE SEEN Final Special Requests 04/10/2019 None Final GRAM STAIN 04/10/2019 Many GRAM NEGATIVE RODS , Few WBC'S Final Urine Culture 04/10/2019 >100,000 colony forming units per mL CITROBACTER FREUNDII* Final Assessment & Plan (01/23/2019 3:04 PM EDT): Viewed bone density from May 2017 and will order another one for late May of this year. Fall and fracture prevention strategies discussed and maintenance of vitamin D3 at 1000 units daily and alendronate 70 mg weekly will be maintained until I have a chance to review this. Assessment & Plan (11/29/2018 5:13 PM EDT): Thin patient at high risk for fracture. Last bone density in May 2017 will be repeated this May. Her left hip density was osteopenic at -1.2 with a right forearm density of -2.3 and a right hip density of -1.3. She will stay on 70 mg of alendronate weekly and 1000 units of vitamin D3 per day. Assessment & Plan (10/02/2018 2:05 PM EST): Reviewed bone densitometry from May 2017 showing a forearm density of -2.3 with a right hip density of -1.3 and a left hip density of -1.3. Patient will remain on 70 mg of Alimta need weekly. I would likely continue this for another 4-6 months and then stop it if she is able to stay off the prednisone while planning a repeat bone densitometry in May of this year. Fall and fracture prevention strategies were discussed. Assessment & Plan (07/31/2018 3:08 PM EST): He is at increased risk for fall and fracture. She is tolerating the alendronate well. We will do another bone densitometry this year. For now she will stay on 70 mg of alendronate weekly. We will also stay on 1000 units of vitamin D3 per day. Assessment & Plan (05/29/2018 2:40 PM EDT): Patient is at high risk for fall and fracture. I reviewed her last bone densitometry which will be repeated in 2019. The right forearm T score was -2.3 with right hip T score of -1.3 and a left hip T score of -1.2. She will remain on 1000 units of vitamin D3 per day. She will remain on alendronate as long as she is on corticosteroids. Assessment & Plan (03/02/2018 12:58 PM EDT): Fall and fracture prevention strategies were discussed. She will have another Reclast infusion next year. She will stay on vitamin D3 to maintain an effective level. Assessment & Plan (11/16/2017 10:23 AM EST): Previous chest x-ray was reviewed with her showing bilateral pleural effusions which were residual from her pneumonia. We will repeat her chest x-ray today she does have some slightly pleuritic left chest wall symptoms. She has a normal pulmonary exam. Fall and fracture prevention strategies were discussed and maintenance of vitamin D3 at 1000 units daily. I reviewed her bone densitometry with her from May showing a right hip T score of -1.3 with a left hip T score of -1.2 and a right forearm T score of -2.3. She will receive 60 mg of Prolia today. She will receive another injection in 6 months. Assessment & Plan (10/28/2017 6:11 PM EST): Patient will remain on calcium, vitamin D3, and Fosamax. Fall and fracture prevention strategies were discussed. Assessment & Plan (07/28/2017 12:32 PM EST): I reviewed her bone densitometry with her from May 2017 indicating a T score of the right hip of -1.3 with a T score of the left hip of -1.2 and the T score of the left forearm of -2.3. The patient to continue on vitamin D3 to maintain a therapeutic level in the serum as well as 70 mg of alendronate weekly for the next 2 years. Another bone densitometry will be scheduled for May 2019. Paroxysmal atrial fibrillation 07/18/2017 Overview (02/15/2022): Anticoagulation managed by [facility] clinic Assessment & Plan (04/10/2025 7:07 AM EDT): Adequately anticoagulated on warfarin. Continue metoprolol. She is in sinus rhythm today. She is asymptomatic. Assessment & Plan (03/07/2025 11:09 AM EDT): Doing well, continue anticoagulation and follow-up as planned with cardiology. Assessment & Plan (09/06/2024 12:54 PM EST): Heart rate is well-controlled, continue current medication Assessment & Plan (01/25/2024 11:38 AM EDT): Well-controlled, continue current medication. Assessment & Plan (12/23/2023 2:07 PM EDT): Heart rate is well-controlled, continue current medication. I do not see any clear evidence of teeth that need to be extracted. I recommend she see Junie Palomino for second opinion regarding oral surgery. If she does need dental extraction, her warfarin could be held for 3 days prior to procedure. Assessment & Plan (12/12/2023 8:56 AM EDT): Rate controlled, INR 2 Continue metoprolol Restart Coumadin Assessment & Plan (06/22/2023 1:47 PM EDT): Heart rate is well controlled and tolerating anticoagulation well. Continue the same Assessment & Plan (01/24/2023 1:47 PM EDT): Heart rate is well controlled and tolerating anticoagulation well. Continue the same. Assessment & Plan (12/10/2022 1:48 PM EDT): Well-controlled, continue current medication. Assessment & Plan (08/09/2022 2:19 PM EST): She has a history of A. fib. Continue with Coumadin. Assessment & Plan (06/18/2022 1:43 PM EDT): Heart rate is well controlled, continue current medication Assessment & Plan (02/15/2022 3:51 PM EDT): Rate is well controlled Assessment & Plan (02/04/2022 9:31 AM EDT): Well-controlled, continue current medication Assessment & Plan (12/23/2021 9:04 AM EDT): She has a history of atrial fibrillation. She is currently in sinus rhythm and was in sinus rhythm when she had her monitor on last year. We will continue with the current doses of metoprolol and Coumadin. Assessment & Plan (10/07/2021 3:31 PM EST): Rate is well controlled. Continue anticoagulation Assessment & Plan (02/07/2021 7:29 PM EDT): Clinically she is doing well. Continue anticoagulation. Assessment & Plan (06/13/2020 3:01 PM EDT): EKG in the office today shows sinus rhythm. However, patient is endorsing going in and out of A. fib regularly now. She feels palpitations daily at this point. Her metoprolol was recently increased to 75 mg daily. She is adequately anticoagulated on warfarin without bleeding complaint. I discussed her rate control strategy and she would like to stick with metoprolol at this time at current dose as this was just increased. I discussed scheduling her for a sooner visit with an EP physician for further treatment of her A. fib, but patient states that she has so much going on right now, that she is going to deal with the leg pain and her symptoms will hopefully continue to improve with the increased beta-kimberlee dose. Assessment & Plan (10/13/2017 3:38 PM EST): Heart rate has been under good control on her home medications. -DC remote telemetry -Continue rate control medications. -Continue to hold Anticoagulation. Assessment & Plan (08/02/2017 1:47 PM EST): Largely in sinus rhythm, status post maze and appendage isolation. Given circumstances, long-term anticoagulation with Coumadin. Psoriasis 07/18/2017 Trochanteric bursitis of left hip 07/18/2017 Assessment & Plan (11/26/2019 3:30 PM EDT): Stretches of the iliotibial band, contrast baths, Tylenol, offered stronger pain medicine which she refused, consider local injection therapy. Late onset Alzheimer's demen tia without behavioral disturbance 07/13/2017 Assessment & Plan (03/07/2025 11:10 AM EDT): She has moderate symptoms and they are stable. She is doing well with support from her . No other intervention needed. Assessment & Plan (09/06/2024 12:55 PM EST): Doing well with support from her , no additional testing or intervention are needed at this time. Assessment & Plan (06/22/2023 1:47 PM EDT): Doing well with the assistance of her , no other intervention needed at this time Assessment & Plan (01/24/2023 1:48 PM EDT): Symptoms are mild and she is doing well with the support of her . No other intervention needed at this time. Assessment & Plan (02/04/2022 9:33 AM EDT): She is doing well with support from her and her current medication. Continue the same. Assessment & Plan (10/07/2021 3:32 PM EST): Symptoms are mild and she is doing well with the assistance from her . Assessment & Plan (05/29/2018 2:39 PM EDT): She is to taper off the Lyrica over 5 days and then give me a call in 10-14 days to see if being off this medication has in any way positively impacted her memory disorder. Assessment & Plan (10/12/2017 8:02 PM EST): Continue Aricept. Generalized anxiety disorder 07/13/2017 Resolved Problems Problem Noted Date Diagnosed Date Resolved Date Allergy to multiple antibiotics 01/17/2024 03/07/2025 Osteomyelitis of great toe 12/09/2023 0 01/25/2024 Assessment & Plan (12/23/2023 2:04 PM EDT): Unclear if patient truly has osteomyelitis versus an ingrown toenail. Pain has resolved. Recommend she discontinue levofloxacin and follow-up as planned with podiatry next week. My suspicion is she had an ingrown toenail which is gradually improving. Recommend she use a moisturizer to her feet twice daily. She should avoid cutting her nails until her significantly longer. I will recheck her in about a month. Assessment & Plan (12/12/2023 8:53 AM EDT): Clinical, lab and x-ray findings concerning for osteomyelitis of the right great toe. Known vascular disease (dissections not occlusive) but no diabetes. Arguing against osteo are normal peripheral pulses and no nidus of infection. Consider gout as an alternate diagnosis. She has a history of gout. MRI R-great toe osteomyelitis vs osteitis Discussed with general surgery. Clinically, patient appears to be improving quite significantly with abx. No open wound, good perfusion. Bcx ntd INR 2. -ID c/s for abx management assuming osteo -Cover with pip-tazo -continues on empiric indomethacin course, -Dr. Pastrana of general surgery following, no sx intervention planned -restart coumadin Ingrown right greater toenail 01/24/2023 03/07/2025 Assessment & Plan (01/25/2024 11:38 AM EDT): Doing much better after toenail was removed. No evidence of infection. Continue good skin care and follow-up as planned with podiatry. Assessment & Plan (01/24/2023 1:48 PM EDT): Much better after treatment with Epsom salt soaks. No other intervention needed at this time. Reviewed proper toenail care. Candidal intertrigo 12/10/2022 12/23/19 24 Chronic constipation 08/31/2022 024 Assessment & Plan (12/09/2023 7:36 PM EDT): Continue Colace and Metamucil, monitor for diarrhea while on antibiotics Assessment & Plan (08/31/2022 10:13 AM EST): I encouraged her to increase the dose of docusate and continue having prunes daily. Goal is to have a formed soft bowel movement at least every other day if not once a day. If she is not achieving this goal after about a week, asked her to contact me and I will start her on a fiber supplement. Chronic obstructive pulmonary disease 08/21/2022 01/24/2023 Epistaxis 02/15/2022 06/18/2022 Assessment & Plan (02/15/2022 3:51 PM EDT): He has had 2 spontaneous bleeds. I encouraged her to continue using Vaseline and saline in each of her nares 3 times daily. I think she may be able to cut back on her anticoagulation. She is clearly over anticoagulated today with an INR 4.4. From her last cardiology note it appears her INR target should be 2-3. Currently the clinic is trying to keep her at 2.5-3.5. I will have my office contact them and make sure were not misunderstanding something regarding her target and see if he can cut back on anticoagulation to help with the bleeding. If she has further episodes, I can refer her to ENT. Lumbar degenerative disc disease 02/04/2022 12/23/2023 Assessment & Plan (01/24/2023 1:48 PM EDT): Doing reasonably well with intermittent use of acetaminophen, continue the same. Assessment & Plan (12/10/2022 1:49 PM EDT): She has been having exacerbation of her pain. I asked her to try extended release acetaminophen since the short acting acetaminophen has been helpful. She may have gotten some significant improvement from an injection on the left sacroiliac joint, but is not clear. She is considering having an injection on the right. She will pursue this if pain becomes more persistent Assessment & Plan (04/28/2022 5:28 PM EDT): Severe degenerative arthritis of lumbar spine Today with muscular strain which she will treat with gentle ROM Salon-Pas and warm pad alternating with ice for 20 min/hr -She was encouraged to use her daughter's heated in ground pool during warmer weather to do light exercises and walking Tylenol 1 gm BID- prn may be continued Assessment & Plan (04/01/2022 9:19 PM EDT): Known severe degenerative arthritis of the spine I agree with PT for treatment of current Low back pain Pt declined XRays to rule out compression fracture Assessment & Plan (02/04/2022 9:32 AM EDT): Start physical therapy. If this is not helpful we can check an x-ray Abnormal CT scan, chest 06/02/202102/11 Localized osteoarthritis of right knee 05/21/2020 08/31/2022 Assessment & Plan (02/24/2021 1:44 PM EDT): Tricompartmental osteoarthritis of the right knee is painful but no worse. No mechanical disruption no locking or swelling or giving way. Continued use of Tylenol, quadricep strengthening, warmth, and well fitting supportive shoes with good shock absorption. Dizziness and giddiness 11/25/2018 0512/2019 Assessment & Plan (11/29/2018 5:12 PM EDT): This seems to come on after the headache. No history of seizures or bowel or bladder incontinence. Another reason to obtain the MRI of the brain. Temporal arteritis 05/29/2018 8 Atrial fibrillation [I48.91] 10/18/2017 03/08/2018 Assessment & Plan (02/10/2018 6:08 PM EDT): Status post Maze procedure and atrial appendage ligation. Repeat Holter monitors show sinus rhythm and sinus tachycardia with increase in atrial ectopy but no atrial fibrillation. She continues on Coumadin for history of TIA and continue palpitations. Goal INR 2-3. She denies any signs or symptoms of bleeding. Pneumonia 10/12/2017 03/08/2018 Assessment & Plan (10/13/2017 3:37 PM EST): Despite diffuse bilateral infiltrates on chest x-ray from a respiratory perspective she is remarkably stable. She has been afebrile. Her white count is normal. Repeat chest x-ray done today showed no change. -Continue ceftriaxone, she appears clinically stable I do not think that the addition of vancomycin to treat her post-flu staph aureus infection as necessary. Certainly should she take it turn for the worse this would need to be added. - Continue outpatient albuterol and nebulizers - IV fluids - Supportive care Supratherapeutic INR 10/12/2017 021 Assessment & Plan (10/13/2017 3:35 PM EST): Vitamin K was given on the day of admission. Currently her INR has come down to the therapeutic range and is 2.8. She has no evidence of active bleeding and denies any melena or dark stools. -Coumadin for one more day and restart on 10/14. UTI (urinary tract infection) 10/12/2017 02/06/2021 Assessment & Plan (05/29/2018 2:38 PM EDT): Patient will have a repeat urine culture today. Assessment & Plan (10/13/2017 3:34 PM EST): UA was collected on 09/23. She is asymptomatic. I do not think that her previous UA reflects recurrent UTI. Chronic diarrhea 10/10/2017 08/31/2022 Assessment & Plan (10/07/2021 3:33 PM EST): Etiology is not clear, but this is clearly been a longstanding problem. She will follow-up as planned with GI. If no etiology is found, this could be irritable bowel syndrome. Intermittent use of Imodium could be helpful. Assessment & Plan (10/12/2017 8:01 PM EST): 9 months of diarrhea, progressive and intermittent. Outpatient management with Dr. Chauhan. Stool studies ordered including C. difficile, Cryptosporidium and fecal leukocyte. Aortic valve disorder 08/02/20172020 Overview (08/02/2017): S/P tissue AVR. Assessment & Plan (08/02/2017 1:46 PM EST): Surveillance. Premorbid insufficiency. Antibiotic dental prophylaxis for tissue prosthesis. Greater trochanteric bursitis of right hip 07/28/2017 08/26/2017 Assessment & Plan (07/28/2017 12:32 PM EST): She will receive pain relieving cortisone injection today for an acute flare of trochanteric bursitis on the right side. After full discussion of risks and benefits she will be started on 25-50 mg of tramadol every 6 hours as needed and may continue acetaminophen as needed on exceeding 1500 mg daily. Amaurosis fugax 07/18/2017 02/06/2021 Assessment & Plan (08/02/2017 1:44 PM EST): Continue long-term anticoagulation. Anxiety and depression 07/18/201706/22 Carpal tunnel syndrome 07/18/201712/22 Cataract 07/18/2017 12/23/2023 Abnormal gait 07/18/2017 12/23/2023 Assessment & Plan (10/12/2017 8:02 PM EST): PT consult Gout 07/18/2017 12/23/2023 Assessment & Plan (06/03/2021 1:37 PM EDT): No clinical gout. Check uric acid level. Keep well-hydrated. Try to maintain low purine diet. Assessment & Plan (02/24/2021 1:44 PM EDT): Distant history of gout but no new hot red or swollen joints or nephrolithiasis. We will check a uric acid level and renal function. Assessment & Plan (11/18/2020 1:48 PM EST): No evidence of active gout. Stay on low purine diet and recheck out uric acid level Assessment & Plan (04/14/2020 2:31 PM EDT): No clinical history of gout recently. Check uric acid level to see if she requires medication. Stay on relatively low purine diet and good oral hydration. Assessment & Plan (11/26/2019 3:30 PM EDT): This has been stable with clinically no gout. She will stay on 100 mg of allopurinol daily. No need for colchicine and she will avoid NSAIDs. Assessment & Plan (05/07/2019 1:35 PM EDT): Distant history of gout but none in the past few years. She has not had a uric acid level checked recently. We will do that on her next blood draw. Assessment & Plan (01/23/2019 3:05 PM EDT): No hot red or swollen joints or evidence of gout or nephrolithiasis. She will continue on low-dose allopurinol. She is tolerating this very well. Hospital Outpatient Visit on 01/17/2019 Component Date Value Ref Range Status HDL 01/17/2019 69 mg/dL Final Comment: Interpretation <40 mg/dL: Low HDL cholesterol (major risk factor for CHD) Greater than or equal to 60 mg/dL: High HDL cholesterol ( negative risk factor for CHD) HDL - cholesterol is affected by a number of factors, e.g. smoking, excerise, hormones, sex and age. CHOLESTEROL 01/17/2019 168 0 - 240 mg/dL Final TRIGLYCERIDES 01/17/2019 68 30 - 160 mg/dL Final LDL 01/17/2019 85 50 - 129 mg/dL Final Comment: LDL levels in terms of risk for coronary heart disease: <100 mg/dL: Optimal 100-129 mg/dL: Near or above optimal 130-159 mg/dL: Borderline high 160-189 mg/dL: High >190 mg/dL: Very High CARDIAC RISK RATIO 01/17/2019 2.4* 3.3 - 4.4 Final GLUCOSE 01/17/2019 88 70 - 99 mg/dL Final Hospital Outpatient Visit on 11/27/2018 Component Date Value Ref Range Status SODIUM 11/27/2018 130* 133 - 146 mmol/L Final CHLORIDE 11/27/2018 96 96 - 108 mmol/L Final POTASSIUM 11/27/2018 5.0 3.3 - 5.1 mmol/L Final CO2 11/27/2018 24 21 - 35 mmol/L Final BUN 11/27/2018 11 6 - 19 mg/dL Final CREATININE 11/27/2018 0.50 0.5 - 1.5 mg/dL Final GLUCOSE 11/27/2018 102* 70 - 99 mg/dL Final CALCIUM 11/27/2018 8.7 8.4 - 10.3 mg/dL Final EGFR 11/27/2018 95 >59 mL/min/1.73m2 Final If patient is black, multiply result by 1.159. Estimated glomerular filtration rate calculated using the CKD-EPI equation. ANION GAP 11/27/2018 15 10 - 20 mmol/L Final WBC 11/27/2018 6.46 3.40 - 11.20 K/uL Final RBC 11/27/2018 4.00 3.80 - 4.80 M/uL Final HGB 11/27/2018 12.1 12.0 - 15.0 g/dL Final HCT 11/27/2018 36.5 36.0 - 46.0 % Final PLT 11/27/2018 344 130 - 400 K/uL Final MCV 11/27/2018 91.3 79.0 - 98.0 fL Final MCH 11/27/2018 30.3 27.0 - 34.8 pg Final MCHC 11/27/2018 33.2 31.5 - 36.0 g/dL Final RDW 11/27/2018 12.9 10.8 - 14.6 % Final MPV 11/27/2018 10.2 9.4 - 12.4 fl Final NRBC 11/27/2018 0.00 0.00 /100 WBCs Final ABSOLUTE NRBC 11/27/2018 0.00 0.00 K/uL Final DIFF METHOD 11/27/2018 Auto Final NEUTS 11/27/2018 72.2 45.30 - 77.70 % Final LYMPHS 11/27/2018 14.9 12.30 - 39.70 % Final MONOS 11/27/2018 9.6 4.10 - 12.80 % Final EOS 11/27/2018 1.9 0 - 7.2 % Final BASOS 11/27/2018 0.8 0 - 2.80 % Final Granulocytes, immature (%) 11/27/2018 0.6 0.0 - 0.9 % Final ABSOLUTE NEUTS 11/27/2018 4.67 1.40 - 7.70 K/uL Final ABSOLUTE LYMPHS 11/27/2018 0.96 0.60 - 3.20 K/uL Final ABSOLUTE MONOS 11/27/2018 0.62* 0.11 - 0.59 K/uL Final ABSOLUTE EOS 11/27/2018 0.12 0.01 - 0.50 K/uL Final ABSOLUTE BASOS 11/27/2018 0.05 0.00 - 0.08 K/uL Final Granulocytes, immature 11/27/2018 0.04 0.00 - 0.05 K/uL Final C REACTIVE PROTEIN 11/27/2018 1.7 0.0 - 4.0 mg/L Final ESR 11/27/2018 18 0 - 30 mm/h Final Assessment & Plan (10/02/2018 2:06 PM EST): No evidence for active clinical gout. She will have a uric acid level done on the next visit. If it is greater than 10 placing her at even higher increase for nephrolithiasis then I will likely treat her with allopurinol. Assessment & Plan (07/31/2018 3:08 PM EST): She has had no new hospital swollen joints or evidence of gouty arthritis. Assessment & Plan (12/19/2017 3:31 PM EDT): No episodes of acute gout but she will have lab work done including uric acid on her next visit. 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 Localized osteoarthritis of right knee 07/18/2017 08/31/2022 Assessment & Plan (11/18/2020 1:49 PM EST): Tricompartmental osteoarthritis is stable. She will continue to wear well fitting supportive shoes with good shock absorption and do quadricep strengthening on a daily basis. Assessment & Plan (05/21/2020 2:49 PM EDT): Reviewed x-ray indicating tricompartmental osteoarthritis. Intra-articular cortisone will be given today followed by relative rest and contrast baths while she will work on gentle quadricep strengthening exercises. We will keep in reserve the possibility of doing Visco supplementation. Assessment & Plan (04/14/2020 2:34 PM EDT): Suspect flare of osteoarthritis of the right knee. Obtain an x-ray. Continue to wear the knee support when walking. Quadricep strengthening was encouraged and will be reinforced by physical therapy. If it continues to be painful or interferes with walking then depending upon the x-ray results we will consider either a corticosteroid injection or Visco supplementation. Assessment & Plan (10/12/2017 8:03 PM EST): Tylenol for pain management. Tramadol taken as an outpatient only when riding in the car. 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 We talked about Thera-Band exercises and strengthening isometrically both upper and lower extremities. Nontraumatic flexor tendon rupture 07/18/2017 02/06/2021 Encounters Date Type Department Care Team Description 05/21/2025 Orders Only [address] [place] [address] ProviderGary MD 05/14/2025 Refill [facility] [address] [place] [address] [address] Floor, [address] [place] [address] Stacie Gruber, PA-Jocelyn Medication Refill 05/02/2025 4:15 PM EDT Office Visit [facility] [address] [place] [id number] Chan Cruz MD Primary localized osteoarthrosis of left lower leg (Primary Dx); Left knee pain 05/02/2025 10:30 AM EDT Telemedicine - audio only [address] [place] [address] Anastacia Velasquez CNP Essential hypertension (Primary Dx); Primary osteoarthritis of both knees 04/15/[address] [place] [address] Harris Lennon MD calll back ( Citlalli Juares wants pt off medication for 3 days, Alyse is questioning this due to the pt being a high risk of stroke. Pt is having a left knee injection. Please give Alyse a callback for more information at [phone] ) 04/12/[address] [place] [address] Nida Lr Medication Refill 04/09/2025 10:15 AM EDT Office Visit [address] [place] [address] Harris Lennon MD Primary osteoarthritis of both knees (Primary Dx); Hypercholesterolemia ; Essential hypertension 04/08/2025 12:30 PM EDT Office Visit [facility] [address] [place] [address] [address] Floor, [address] [place] [address] Stacie Gruber PA-C Presence of prosthetic heart valve (Primary Dx); History of aortic valve replacement with porcine valve; Paroxysmal atrial fibrillation; Dissecting aortic aneurysm, abdominal; Essential hypertension; Hypercholesterolemia 04/08/[address] [place] [address] Harris Lennon MD Appointment 04/06/2025 Refill [facility] [address] [place] [address] [address] Floor, [address] [place] [address] Masha Montano DNP Medication Refill 04/04/2025 10:00 AM EDT Telemedicine [address] [place] [address] Anastacia Velasqeuz CNP Essential hypertension (Primary Dx); Pain and swelling of left knee 03/18/2025 10:10 AM EDT Office Visit [facility] [address] [place] [address] [place] [address] Jazzmine Seth DO Other osteoporosis without current pathological fracture (Primary Dx) 03/11/2025 11:02 AM EDT - 03/11/2025 11:59 PM EDT Hospital Encounter [facility] - [facility] [address] [place] [address] Jazzmine Seth DO Discharge Disposition: Home or Self Care 03/07/2025 10:30 AM EDT Office Visit [facility] [address] [place] [address] Harris Lennon MD Essential hypertension (Primary Dx); Paroxysmal atrial fibrillation; History of repair of thoracic aortic aneurysm; History of aortic valve replacement with porcine valve; Late onset Alzheimer's dementia without behavioral disturbance; Mild recurrent major depression; Mild persistent asthma without complication; Primary osteoarthritis of both knees; Age-related osteoporosis without current pathological fracture 03/06/2025 7:58 AM EDT - 03/06/2025 11:59 PM EDT Hospital Encounter [facility] [address] [place] [address] Jazzmine Seth DO Discharge Disposition: Home or Self Care 02/18/2025 Patient Outreach [facility] [address] [place] [address] Pari London, MARIZOL Administration (iCMP Discharge ) 02/18/2025 Patient Outreach [facility] [address] [place] [address] Margarita Davidson, MARIZOL Care Coordination ([facility] Follow up outreach/Discharge ) from Last 3 Months Immunizations Immunization Administration Dates Next Due COVID-19 (Pre-07/04) Pfizer Vaccine, mRNA, PF 11/10/2020,10/20/2020 INFLUENZA, SPLIT VIRUS, TRIV ALENT W/ PRESERVATIVE IM 05/21/2016,05/30/2010 Influenza High-Dose Quadriva lent Preservative Free IM 06/18/2023,06/27/2022,05/06/2020 Influenza High-Dose Trivalen t Preservative Free IM 06/28/2024,06/23/2018,05/29/2015,05/27 Influenza Trivalent Adjuvant ed Preservative free IM 05/14/2017 Influenza, Unspecified Formulation 06/24/2021, Pneumococcal conjugate PCV13 06/11/2015 Pneumococcal polysaccharide PPSV23 04/21/2011 RSV Vaccine (monovalent, adjuvanted) 07/04/2023 Td, unspecified formulation 07/26/2002 Tdap 03/08/2021,08/12/2015 Zoster live 07/25/2007 Zoster recombinant 05/18/2018,03/10/2018 Family History Medical History Relation Comments Stroke Father COPD Mother Dementia Sister Heart attack Sister Lymphoma Son Breast cancer Neg Hx Relation Status Comments Father age 35 Mother age 83 Sister 2 sisters deceas ed Son Alive Social History Tobacco Use Types Packs/Day Years [...] file Not on file Not on file Last Filed Vital Signs Vital Sign Reading Time Taken Comments Blood Pressure 150/72 04/09/2025 10:25 AM EDT Pulse 60 04/09/2025 10:15 AM EDT Temperature 36.6 C (97.8 F) 04/09/2025 10:15 AM EDT Respiratory Rate 16 06/16/2024 2:07 PM EDT Oxygen Saturation 98% 04/09/2025 10:15 AM EDT Inhaled Oxygen Concentration - - Weight 64.9 kg (143 lb) 05/02/2025 3:52 PM EDT Height 154.9 cm (5' 1 ) 05/02/2025 3:52 PM EDT Body Mass Index 27.02 05/02/2025 3:52 PM EDT Plan of Treatment Upcoming Encounters Date Type Department Care Team (Late st Contact Info) Description 04/08/2025 Procedure Pass Echo Lab [address] [place] [address] 07/30/2025 10:45 AM EST Office Visit [address] [place] [address] Harris Lennon MD [address] [place] [address], [address] [place] [address] 09/09/2025 11:15 AM EST Appointment Echo Lab [address] [place] [address] Stacie Gruber PA-C [address] [place] [address] 09/27/2025 10:40 AM EST Office Visit [facility] [address] [place] [address] [address]rd Floor, [address] [place] [address] Davidson Gunter MD [address] [place] [address], [address] [place] [address] 02/14/2026 10:10 AM EDT Office Visit [facility] [address] [place] [address] [place] [address] Jazzmine Seth DO [address] [place] [address] [email or web address] Health Maintenance Due Date Last Done Comments LIPID PANEL 01/18/2024 01/17/2019, 04/2019, 08/26/2017, Additional history exists INFLUENZA VACCINE (#1) 2025 , 06/18/2023, 06/18/2023, Additional history exists COVID-19 VACCINE ( season) 2025 06/28/2024, 06/18/2023, 07/07/2022, Additional history exists DEPRESSION SCREENING 09/06/2025 09/06/2024, 08/21/20 18 BLOOD PRESSURE 10/10/2025 04/09/2025 CREATININE LEVEL 03/06/2026 03/06/2025, 02/2025, 09/06/2024, Additional history exists POTASSIUM LEVEL 03/06/2026 03/06/2025, 08/13, 12/12/2023, Additional history exists SMOKING Hx and SMOKELESS TOBACCO SCREENING 05/02/2026 05/02/2025 Adult Td,Tdap Booster 03/08/2031 03/08/2021 , 08/12/2015, 07/26/2002 PNEUMOCOCCAL VACCINES (50+ years) Completed 06/11/2015, 04/21/2011 ZOSTER VACCINES Completed 05/18/2018, 02/11, 07/25/2007 RSV VACCINE Completed 07/04/2023 OSTEOPOROSIS SCREENING INITIAL (ONE-TIME) Completed 03/11/2025, 03/08/2023, 05/18/2019, Additional history exists HEPATITIS A VACCINES Aged Out No long er eligible based on patient's age to complete this topic HIB VACCINES Aged Out No longer eligi ble based on patient's age to complete this topic MENINGOCOCCAL VACCINES (ACWY) Aged Out No longer eligible based on patient's age to complete this topic MENINGOCOCCAL VACCINES (B) Aged Out N o longer eligible based on patient's age to complete this topic Medical Devices Implanted Type Area International Trade Compliance Manager Device Identifier Shelf Expiration Date Model / Serial / Lot Wrist Description:lt wrist Sacral Illiac Joint Description:right side plate Lumbar Spine Description:diane Procedures Procedure Name Priority Date/Time Associated Diagnosis Comments HM DIABETES EYE EXAM FOR RESULT ENTRY ONLY Routine 05/01/2025 10:19 AM EDT BD DXA HIP AND FOREARM Routine 03/11/2025 11:16 AM EDT Age-related osteoporosis without current pathological fracture P1NP (Procollagen I NT Polypeptide) Routine 03/06/2025 7:59 AM EDT Age-related osteoporosis without current pathological fracture COLLAGEN TYPE 1B-TELOPEPTIDE, BLOOD Routine 03/06/2025 7:59 AM EDT Age-related osteoporosis without current pathological fracture RENAL PANEL Routine 03/06/2025 7:59 AM EDT Age-related osteoporosis without current pathological fracture LIPID PANEL Routine 01/17/2019 7:43 AM EDT Hypercholesterolemia from Last 3 Months or Most Recently Relevant to Health Maintenance Results * DIABETES EYE EXAM FOR RESULT ENTRY ONLY (05/01/2025 10:19 AM EDT) us Historical Provider HEALTH MAINTENANCE Edited Result - Final * BD DXA HIP AND FOREARM (03/11/2025 11:16 AM EDT) Anatomical Region Laterality Modality Bone Density Bone Density 03/11/2025 11:1 4 AM EDT Impressions 03/12/2025 10:13 AM EDT Interpretation: Osteoporosis. Narrative 03/12/2025 10:13 AM EDT Referred By: JAZZMINE SETH Indications: Osteoporosis Scanner: Skoodat A with serial# of [id number] located at [facility] Bone Density Scan (DXA) 03/11/25 Details of prior DXA scans are available by clicking View Full Report BMD T- Z- Skeletal Site gm/cm2 score score BMD Change Since Prior Scan ------ ----- ----- Total Hip (Right) 0.727 -1.80 0.30 0.044 (6.4%)* since 03/08/2023 Femoral Neck (Right) 0.624 -2.00 0.30 0.022 (stable) since 03/08/2023 1/3 Radius (Right) 0.533 -2.60 0.60 0.020 (stable) since 03/08/2023 ------ ----- ----- * Denotes significant change when >= , 0.027 g/cm2 for the total hip, 0.029 g/cm2 for the femoral neck, 0.023 g/cm2 for the forearm (1/3 radius). Interpretation: Osteoporosis. Technical Quality: Imaging of all sites was of adequate quality. FRAX: A FRAX(r) score is not provided because the patient has osteoporosis, which is generally an indication for treatment. Reviewed By: Leidy Hyatt MD on 03/12/2025 10:13:47 Additional Information: -World Health Organization criteria classify adults based on lowest T-score at PA spine, hip or forearm: Normal (T-score >= -1.0), Osteopenia (T-score between -1 and -2.5), or Osteoporosis (T-score <= -2.5). At [facility], T-scores are compared to peak bone density of a young white gender matched reference population. - For premenopausal women and men under the age of 50, Z-scores (comparison to age, gender, and ethnicity matched reference population) are used: Above expected range for age (Z-score >= 2.0), Within expected range of age (Z-score 1.9 to -1.9), or Below expected range for age (Z-score <= -2.0). - The Bone Health and Osteoporosis Foundation recommends that treatment be considered in men aged more than 50 years and in postmenopausal women with ANY of the following: Prior hip or vertebral fractures; T-score of <= -2.5 at the PA spine or hip; or 10 year fracture probability by FRAX of >= 3% for the hip or >= 20% for major osteoporotic fracture. - The FRAX algorithm (https://www.radha.ac.uk/FRAX/tool.aspx) is designed to predict 10-year fracture risk in treatment-naive adults between the ages of 40 and 90. It is not intended to be used in those receiving pharmacologic osteoporosis treatment. - The TBS is derived from the texture of the DXA spine image and has been shown to be related to bone microarchitecture and fracture risk. This data provides information independent of BMD value. It adds to fracture risk assessment with a FRAX adjusted for TBS score. If your patient had a TBS and qualified for a FRAX score, the reported FRAX score has been adjusted for TBS. TBS Score Interpretation 1.350 and greater Normal bone microarchitecture 1.200 to 1.350 Partially degraded bone microarchitecture 1.200 and less Degraded bone microarchitecture - Including race/ethnicity in the generation of T- or Z-scores or in the FRAX calculation is complicated, and currently undergoing active review to ensure that we can give patients the best information on their risk of fracture. - Some prior studies may not be compatible with our comparison software. - Click on View Full Report to see subsequent pages with images and prior bone density results. Procedure Note Leidy Hyatt MD - 03/12/2025 Referred By: JAZZMINE SETH Indications: Osteoporosis Scanner: Skoodat A with serial# of [id number] located at [facility] Bone Density Scan (DXA) 03/11/25 Details of prior DXA scans are available by clicking View Full Report BMD T- Z- Skeletal Site gm/cm2 score score BMD Change Since Prior Scan ------ ----- Total Hip (Right) 0.727 -1.80 0.30 0.044 (6.4%)* since03/08/2023 Femoral Neck (Right) 0.624 -2.00 0.30 0.022 (stable) since03/08/2023 1/3 Radius (Right) 0.533 -2.60 0.60 0.020 (stable) since03/08/2023 ------ ----- * Denotes significant change when >= , 0.027 g/cm2 for the total hip,0.029 g/cm2 for the femoral neck, 0.023 g/cm2 for the forearm (1/3 radius). Interpretation: Osteoporosis. Technical Quality: Imaging of all sites was of adequate quality. FRAX: A FRAX(r) score is not provided because the patient hasosteoporosis, which is generally an indication for treatment. Reviewed By: Leidy Hyatt MD on 03/12/2025 10:13:47 Additional Information: -World Health Organization criteria classify adults based on lowestT-score at PA spine, hip or forearm: Normal (T-score >= -1.0), Osteopenia (T-score between -1 and -2.5), or Osteoporosis (T-score <= -2.5). At [facility], T-scores are compared to peak bone density of a young white gender matched reference population. - For premenopausal women and men under the age of 50, Z-scores(comparison to age, gender, and ethnicity matched reference population) are used:Above expected range for age (Z-score >= 2.0), Within expected range of age (Z-score 1.9 to -1.9), or Below expected range for age (Z-score <= -2.0). - The Bone Health and Osteoporosis Foundation recommends that treatment be considered in men aged more than 50 years and in postmenopausal women with ANY of the following: Prior hip or vertebral fractures; T-score of <= -2.5 at the PA spine or hip; or 10 year fracture probability by FRAX of >= 3%for the hip or >= 20% for major osteoporotic fracture. - The FRAX algorithm (https://www.radha.ac.uk/FRAX/tool.aspx) is designed to predict 10-year fracture risk in treatment-naive adultsbetween the ages of 40 and 90. It is not intended to be used in those receiving pharmacologic osteoporosis treatment. - The TBS is derived from the texture of the DXA spine image and has been shown to be related to bone microarchitecture and fracture risk. This data provides information independent of BMD value. It adds to fracture risk assessment with a FRAX adjusted for TBS score. If your patient had a TBSand qualified for a FRAX score, the reported FRAX score has been adjusted for TBS. TBS Score Interpretation 1.350 and greater Normal bone microarchitecture 1.200 to 1.350 Partially degraded bone microarchitecture 1.200 and less Degraded bone microarchitecture - Including race/ethnicity in the generation of T- or Z-scores or in the FRAX calculation is complicated, and currently undergoing active review to ensure that we can give patients the best information on their risk of fracture. - Some prior studies may not be compatible with our comparison software. - Click on View Full Report to see subsequent pages with images andprior bone density results. IMPRESSION: Interpretation: Osteoporosis. Jazzmine Seth DO IMG BD BONE DENSITY DEXA Final R esult * P1NP (PROCOLLAGEN I NT POLYPEPTIDE) (03/06/2025 7:59 AM EDT) ENIDOLL I INTACT N 23 mcg/L [facility] Comment: (NOTE) REFERENCE VALUE Premenopausal: 19-83 Postmenopausal: 16-96 Blood 03/06/2025 7:59 AM EDT 03/06/2025 8:05 AM EDT [facility] BLOOD ORDERABLES Final Resul t Performing Organization Address City/[facility] Co de Phone Number [facility] MED/[facility] [address] [place] [address] * Renal panel (03/06/2025 7:59 AM EDT) SODIUM 140 133 - 146 mmol/L [facility] POTASSIUM 4.7 3.3 - 5.1 mmol/L [facility] CHLORIDE 104 96 - 108 mmol/L [facility] CO2 25 21 - 35 mmol/L [facility] GLUCOSE 99 70 - 99 mg/dL [facility] BUN 16 6 - 19 mg/dL [facility] CREATININE 0.80 0.5 - 1.5 mg/dL [facility] CALCIUM 10.0 8.4 - 10.3 mg/dL [facility] PHOSPHORUS 3.4 2.7 - 4.5 mg/dL [facility] ALBUMIN 4.1 3.9 - 4.8 g/dL [facility] EGFR 74 >59 mL/min/1.7 3m2 [facility] Comment:Estimated glomerular filtration rate calculated using the CKD-EPI refit equation. ANION GAP 16 10 - 20 mmol/L [facility] Blood 03/06/2025 7:59 AM EDT 03/06/2025 8:05 AM EDT [facility] BLOOD ORDERABLES Final Resul t Performing Organization Address City/[facility]/ZIP Co de Phone Number [facility] [address] [place] [address] * (ABNORMAL) Collagen type 1b-telopeptide, blood (03/06/2025 7:59 AM EDT) Collagen CTx 125(L) pg/mL [facility] MED[facility] Comment: (NOTE) REFERENCE VALUE 148-967 (18-29 y) 150-635 (30-39 y) 131-670 (40-49 y) 183-1060 (50-59 y) 171-970 (60-69 y) 152-858 (>70 y) 136-689 (Premenopausal) 177-1015 (Postmenopausal) Flagging is based on the age-specific reference interval and not menopausal status. Blood 03/06/2025 7:59 AM EDT 03/06/2025 8:05 AM EDT us Jazzmine Seth DO LAB BLOOD ORDERABLES Final Resul t [facility] MED/[facility] [address] [place] [address] * (ABNORMAL) Lipid panel (01/17/2019 7:43 AM EDT) HDL 69 mg/dL [facility] Comment: Interpretation <40 mg/dL: Low HDL cholesterol (major risk factor for CHD) Greater than or equal to 60 mg/dL: High HDL cholesterol ( negative risk factor for CHD) HDL - cholesterol is affected by a number of factors, e.g. smoking, excerise, hormones, sex and age. CHOLESTEROL 168 0 - 240 mg/dL [facility] TRIGLYCERIDES 68 30 - 160 mg/dL [facility] LDL 85 50 - 129 mg/dL [facility] Comment: LDL levels in terms of risk for coronary heart disease: <100 mg/dL: Optimal 100-129 mg/dL: Near or above optimal 130-159 mg/dL: Borderline high 160-189 mg/dL: High >190 mg/dL: Very High CARDIAC RISK RATIO 2.4(L) 3.3 - 4.4 C [facility] Blood 01/17/2019 7:43 AM EDT 01/17/2019 7:46 AM EDT us Xuan Ferraro DO LAB BLOOD ORDERABLES Final Result Performing Organization Address City/[facility]/ZIP Co de Phone Number [address] [address] from Last 3 Months or Most Recently Relevant to Health Maintenance Insurance MEDICARE PART A & B [employer] MEDEX SUPPLEMENT MEDICARE PART A & B [email or web address] SUPPLEMENT MEDICARE PART A & B [employer] MEDEX SUPPLEMENT MEDICARE PART A & B [employer]EX SUPPLEMENT MEDICARE PART A & B [employer]EX SUPPLEMENT MEDICARE PART A & B [employer] MEDEX SUPPLEMENT MEDICARE PART A & B [employer] MEDEX SUPPLEMENT MEDICARE PART A & B [employer] MEDEX SUPPLEMENT MEDICARE PART A & B [employer] MEDEX SUPPLEMENT Advance Directives For more information, please contact: [phone] (9AM - 5PM [facility], Tuesday-Tuesday) * DNR/DNI (No CPR/No Intubation) (Latest Code Status on File) Date Activated Date Inactivated Comments 12/09/2023 7:13 PM Question Answer Comments Code Status Confirmed With: Patient Code Discussion Comments: per d/w patient 4 * Full Code (Confirmed) Date Activated Date Inactivated Comments 10/12/2017 7:49 PM 10/14/2017 2:44 PM Question Answer Comments Code Discussion Comments: patient Care Teams Drafter Chief Design Relationship Specialty Start Date End Date Harris Lennon MD [address] [place] [address], [address] [place] [address] PCP - General Internal Medicine 01/16/21 Kory Vogt MD [address] [place] [address] Gastroenterology 10/07/21 Harris Lennon MD [address] [place] [address], [address] [place] [address] Insurance Assigned Provider 12/17/23 Additional Source Comments The information contained in this document represents components of the legal health record. It is not the complete legal health record.[facility]
--- OUTSIDE RECORDS SUMMARY | 2025-05-21 12:55 | XMS_ITS | Encounter Summary ---
Author Organization [facility] Address [address] [place] [address] Phone Care Team Providers Care Seed Cleaner Operator Name Role Phone Harris Lennon MD Primary Care Provider [phone] Kory Vogt MD Unavailable Xuan Ferraro DO Unavailable [phone] Harris Lennon MD Unavailable [phone] Margarita Davidson RN Unavailable [email or web address] Margarita Davidson RN Unavailable [email or web address] Jyoti Aviles OT Unavailable [phone] Encounter Details Date Type Department Care Team (Latest Contact Info) Description 11/25/2021 Transcribe Orders [facility] Laboratory [address] [address] Margarita Hart, NIKO [address] [place] [address] Abdominal pain, right lower quadrant (Primary Dx) Social History Tobacco Use Types [...] Info) Description 04/08/2025 Procedure Pass Echo Lab [address] [place] [address] 07/30/2025 10:45 AM EST Office Visit [facility] Medicine [address] [place] [address] [place] [address] Harris Lennon MD [address] [place] [address], [address] [place] [address] 09/09/2025 11:15 AM EST Appointment Echo Lab [address] [place] [address] Stacie Gruber PA-C [address] [place] [address] 09/27/2025 10:40 AM EST Office Visit [facility] [address] [place] [address] [address]rd Floor, [address] [place] [address] Davidson Gunter MD [address] [place] [address], [address] [place] [address] 02/14/2026 10:10 AM EDT Office Visit [facility] [address] [place] [address] [place] [address] Talon Seth DO [address] [place] [address] documented as of this encounter Results * (ABNORMAL) Comprehensive metabolic panel (11/25/2021 4:16 PM EDT) SODIUM 128(L) 133 - 146 mmol/L [facility] POTASSIUM 4.4 3.3 - 5.1 mmol/L [facility] CHLORIDE 96 96 - 108 mmol/L [facility] CO2 25 21 - 35 mmol/L [facility] BUN 10 6 - 19 mg/dL [facility] CREATININE 0.50 0.5 - 1.5 mg/dL [facility] GLUCOSE 97 70 - 99 mg/dL [facility] ALBUMIN 4.3 3.9 - 4.8 g/dL [facility] TOTAL PROTEIN 7.3 6.5 - 8.0 g/dL [facility] CALCIUM 9.2 8.4 - 10.3 mg/dL [facility] ALKALINE PHOSPHATASE 62 39 - 117 U/L [facility] TOTAL BILIRUBIN 0.2 0.0 - 1.2 mg/dL [facility] AST 25 0 - 37 U/L [facility] ALT 16 0 - 40 U/L [facility] GLOBULIN 3.0 1 - 4.8 g/dL [facility] EGFR 97 >59 mL/min/1.7 3m2 [facility] Comment:Estimated glomerular filtration rate calculated using the CKD-EPI refit equation. ANION GAP 11 10 - 20 mmol/L [facility] Blood 11/25/2021 4:16 PM EDT 11/25/2021 4:17 PM EDT Margarita Hart NP LAB BLOOD ORDERABLES Sofía hodge Result Performing Organization Address City/State/[facility] Co de Phone Number [address] [address] * (ABNORMAL) CBC and differential (11/25/2021 4:16 PM EDT) WBC 6.38 4.00 - 11.00 K/uL [facility] RBC 3.98 3.72 - 5.30 M/uL [facility] HGB 12.4 11.4 - 15.9 g/dL [facility] HCT 37.2 34.2 - 46.8 % [facility] PLT 277 140 - 430 K/uL [facility] MCV 93.5 78.0 - 97.0 fL [facility] MCH 31.2 25.0 - 33.0 pg [facility] MCHC 33.3 32.0 - 36.0 g/dL [facility] RDW 13.5 11.0 - 16.0 % [facility] MPV 10.2 8.4 - 12.8 fl [facility] NRBC 0.00 0 /100 WBCs [facility] ABSOLUTE NRBC 0.00 0 K/uL [facility] DIFF METHOD Auto [facility] NEUTS 55.3 43.0 - 75.0 % [facility] LYMPHS 25.4 18.2 - 47.4 % [facility] MONOS 13.2(H) 4.00 - 11.00 % [facility] EOS 5.3 0.0 - 8.0 % [facility] BASOS 0.5 0.0 - 2.0 % [facility] Granulocytes, immature (%) 0.3 0.0 - 0.9 % [facility] ABSOLUTE NEUTS 3.53 1.80 - 7.70 K/uL [facility] ABSOLUTE LYMPHS 1.62 1.00 - 3.10 K/uL [facility] ABSOLUTE MONOS 0.84(H) 0.20 - 0.80 K/uL [facility] ABSOLUTE EOS 0.34 0.00 - 0.80 K/uL [facility] ABSOLUTE BASOS 0.03 0.00 - 0.09 K/uL [facility] Granulocytes, immature 0.02 0.00 - 0.05 K/uL [facility] Blood 11/25/2021 4:16 PM EDT 11/25/2021 4:17 PM EDT us Margarita Hart NP LAB BLOOD ORDERABLES Sofía hodge Result [facility] [address] [place] [address] documented in this encounter Visit Diagnoses Diagnosis Abdominal pain, right lower quadrant- Primary documented in this encounter Additional Health Concerns Infection Onset Date Last Indicated Resolved Time CoV-Risk 08/21/2022 08/21/2022 09/01/2022 1:23 AM EST CoV-Risk 11/16/2023 11/16/2023 11/27/2023 1:21 AM EDT Assessment Noted Time PHQ-9 Depression Total Score: 15 018 2:17 PM EST PHQ-2 Depression Total Score: 0 10/07/19 22 2:55 PM EST documented as of this encounter Care Teams Seed Cleaner Operator Relationship Specialty Start Date End Date Harris Lennon MD [address] [place] [address], [address] [place] [address] [email or web address] PCP - General Internal Medicine 01/16/21 Kory Vogt MD [address] [place] [address] Gastroenterology 10/07/21 Xuan Ferraro DO [address] [place] [address] [email or web address] Insurance Assigned Provider 06/09/19 12/19/21 Harris Lennon MD [address] [place] [address], [address] [place] [address] [email or web address] Insurance Assigned Provider 12/17/23 Margarita Davidson RN [address] [place] [address], [address] [place] [address] [email or web address] [employer] Floral Merchandiser 06/02/22 06/29/22 Margarita Davidson RN [address] [place] [address], [address] [place] [phone] [email or web address] [employer] Floral MerchandiserEngineering Job Titles 07/01/22 02/17/25 Jyoti Aviles, OT [address] [place] [phone] [email or web address] Transitions Floral MerchandiserSupervisor [employer] 12/12/2312/14/23 documented as of this encounter Additional Source Comments The information contained in this document represents components of the legal health record. It is not the complete legal health record.[facility]
--- OUTSIDE RECORDS SUMMARY | 2025-05-21 12:55 | XMS_ITS | Encounter Summary ---
Author Organization [facility] Address [address] [place] [address] Phone Care Team Providers Care Event Specialist Name Role Phone Xuan Ferraro DO Primary Care Provider + [phone] Xuan Ferraro DO Unavailable [phone] Harris Lennon MD Primary Care Provider Kory Vogt MD Unavailable Xuan Ferraro DO Unavailable [phone] Harris Lennon MD Unavailable [phone] Margarita Davidson RN Unavailable [email or web address] Margarita Davidson RN Unavailable [email or web address] Jyoti Aviles OT Unavailable [phone] Reason for Referral * MRI/CAT Scan - Closed Specialty Diagnoses / Procedures Referred By Kelvin waddell Referred To Contact Radiology Diagnoses Weakness of lower extremity, unspecified laterality Procedures MRI Thoracic Spine John Cook DO Phone: tel: fax: mailto:[email or web address] Referral ID Status Reason Start Date Expiration Date Visits Re quested Visits Authorized [id number] Closed 05/23/2020 05/23/2021 1 1 * MRI/CAT Scan - Closed Specialty Diagnoses / Procedures Referred By Contac t Referred To Contact Radiology Diagnoses Weakness of left lower extremity Procedures MRI Lumbar Spine John Cook DO Phone: tel: fax: mailto:[email or web address] Referral ID Status Reason Start Date Expiration Date Visits Re quested Visits Authorized [id number] Closed 05/23/2020 05/23/2021 1 1 Encounter Details Date Type Department Care Team (Late st Contact Info) Description 05/23/2020 Ancillary Orders Virtual Department [address] [place] [address] John Cook DO [address] [place] [address] [email or web address] Weakness of left lower extremity; Weakness of lower extremity, unspecified laterality Social History Tobacco Use Types Packs/Day Years [...] Info) Description 04/08/2025 Procedure Pass [facility] [address] [place] [address] 07/30/2025 10:45 AM EST Office Visit [facility] [address] [place] [address] [place] [address] Harris Lennon MD [address] [place] [address], [address] [place] [address] 09/09/2025 11:15 AM EST Appointment Echo Lab [address] [place] [address] Stacie Gruber PA-C [address] [place] [address] 09/27/2025 10:40 AM EST Office Visit [facility] [address] [place] [address] 3rd Floor, [address] [place] [address] Davidson Gunter MD 22 [facility], [address] [address] 02/14/2026 10:10 AM EDT Office Visit [facility] [address] [place] [address] [place] [address] Talon Seth DO [address] [place] [address] documented as of this encounter Results * MRI LUMBAR SPINE (NEURO) WITHOUT CONTRAST (05/31/2020 3:33 PM EDT) Anatomical Region Laterality Modality L-spine Magnetic Resonan ce 05/31/2020 7:51 PM EDT Impressions 05/31/2020 8:18 PM EDT Evaluation partially limited due to fusion hardware in place. Moderate scoliosis. Multilevel degenerative changes as described above. No progressive canal or neuroforaminal stenosis identified. Narrative 05/31/2020 8:18 PM EDT EXAM: MRI LUMBAR SPINE (NEURO) WITHOUT CONTRAST COMPARISON: Radiographs of the lumbar spine on January 20, 2017. Lumbar spine MRI on March 29, 2016. CT of the chest and abdomen on December 10, 2016 HISTORY: S/P LUMBAR FUSION 09/2016 L2-S1 NOW WITH LOWER EXTREMITY WEAKNESS TECHNIQUE: Exam performed on a 1.5 Kiana high-field MRI scanner. Magnetic resonance imaging of the lumbar spine was performed WITHOUT injected contrast using standard department protocols. FINDINGS: Hardware: Posterior fusion hardware at L3-S1. Lateral fusion hardware at L2 on L3. The hardware creates gradient artifact that limits local evaluation. ALIGNMENT: Moderate scoliosis. Minimal grade 1 retrolisthesis of L2 on L3. VERTEBRAL BODIES: Vertebral body heights are maintained. Partial fusion of the vertebral bodies at L3-L4 and L5-S1. Bone marrow signal pattern is within normal limits. INTERVERTEBRAL DISCS: Desiccation changes of the visualized discs. Disc spacer at L2-L3. Mild loss of height of L4-L5 disc. Small Schmorl node at inferior endplate of L4. SPINAL CORD/CONUS: Included spinal cord has normal caliber and signal characteristics. The conus terminates normally at L1. Cauda equina appears unremarkable. Level by level analysis yields the following: Noted that evaluation for neuroforaminal stenosis is partially limited due to gradient artifacts and rotatory curvature of the spine. L1-2: Mild bulging disc. No significant canal or neuroforaminal stenosis. L2-3: Bulging disc and hypertrophy of posterior elements contributes to mild canal stenosis and mild bilateral neuroforaminal stenosis. The degree of canal and neuroforamina stenosis has improved from previous MR study in 2016. L3-4: No disc herniation. No significant canal or left neuroforaminal stenosis. Marginal osteophytes appears to contribute to mild right neuroforaminal stenosis. L4-5: Bulging disc and marginal osteophytes appear to contribute to mild right foraminal stenosis. No significant canal or left neuroforaminal stenosis. L5-S1: Bulging disc and hypertrophy of posterior elements contributes to mild left neuroforaminal stenosis and mild canal stenosis. No significant right neuroforaminal stenosis. OTHERS:Gradient artifact from hardware is noted along the right sacroiliac joint. Chronic abdominal aortic dissection that extends to the left common iliac artery. Right renal cyst. Posterior paraspinal soft tissues are unremarkable. Procedure Note Christelle Hernandez MD - 05/31/2020 EXAM: MRI LUMBAR SPINE (NEURO) WITHOUT CONTRAST COMPARISON: Radiographs of the lumbar spine on January 20, 2017. Lumbar spineMRI on March 29, 2016. CT of the chest and abdomen on December 10, 2016 HISTORY: S/P LUMBAR FUSION 09/2016 L2-S1 NOW WITH LOWER EXTREMITY WEAKNESS TECHNIQUE: Exam performed on a 1.5 Kiana high-field MRI scanner. Magneticresonance imaging of the lumbar spine was performed WITHOUT injectedcontrast using standard department protocols. FINDINGS: Hardware: Posterior fusion hardware at L3-S1. Lateral fusion hardware atL2 on L3. The hardware creates gradient artifact that limits localevaluation. ALIGNMENT: Moderate scoliosis. Minimal grade 1 retrolisthesis of L2 onL3. VERTEBRAL BODIES: Vertebral body heights are maintained. Partial fusionof the vertebral bodies at L3-L4 and L5-S1. Bone marrow signal pattern iswithin normal limits. INTERVERTEBRAL DISCS: Desiccation changes of the visualized discs. Discspacer at L2-L3. Mild loss of height of L4-L5 disc. Small Schmorl node atinferior endplate of L4. SPINAL CORD/CONUS: Included spinal cord has normal caliber and signalcharacteristics. The conus terminates normally at L1. Cauda equina appearsunremarkable. Level by level analysis yields the following: Noted that evaluation forneuroforaminal stenosis is partially limited due to gradient artifacts androtatory curvature of the spine. L1-2: Mild bulging disc. No significant canal or neuroforaminalstenosis. L2-3: Bulging disc and hypertrophy of posterior elements contributes tomild canal stenosis and mild bilateral neuroforaminal stenosis. The degreeof canal and neuroforamina stenosis has improved from previous MR study [id number]. L3-4: No disc herniation. No significant canal or left neuroforaminalstenosis. Marginal osteophytes appears to contribute to mild rightneuroforaminal stenosis. L4-5: Bulging disc and marginal osteophytes appear to contribute to mildright foraminal stenosis. No significant canal or left neuroforaminalstenosis. L5-S1: Bulging disc and hypertrophy of posterior elements contributes tomild left neuroforaminal stenosis and mild canal stenosis. No significantright neuroforaminal stenosis. OTHERS:Gradient artifact from hardware is noted along the right sacroiliacjoint. Chronic abdominal aortic dissection that extends to the left commoniliac artery. Right renal cyst. Posterior paraspinal soft tissues areunremarkable. IMPRESSION: Evaluation partially limited due to fusion hardware in place. Moderatescoliosis. Multilevel degenerative changes as described above. Noprogressive canal or neuroforaminal stenosis identified. us John Cook DO IMG MR XSPECIALTY Final Resu lt * MRI THORACIC SPINE (BONE) WITHOUT CONTRAST (05/31/2020 3:09 PM EDT) Anatomical Region Laterality Modality T-spine Magnetic Resonan ce 05/31/2020 6:38 PM EDT Impressions 05/31/2020 7:51 PM EDT Stable moderate thoracic scoliosis. Mild degenerative disc disease at almost every thoracic level. No significant canal stenosis. No neuroforaminal stenosis at obtained at selected levels. Narrative 05/31/2020 7:51 PM EDT EXAM: MRI THORACIC SPINE (BONE) WITHOUT CONTRAST COMPARISON: MR of the thoracic spine on March 29, 2016. CT on December 10 2016. HISTORY: BOWEL CHANGES S/P LUMBAR FUSION 2017 WITH LOWER EXTREM WEAKNESS Study notes from technologist: Patient states left leg weakness, difficulty walking due to left leg feeling like it might give out. Has to use walker. Symptoms increasing over past 2-3 months. No trauma. No prior surgery to t-spine TECHNIQUE: Exam performed on a 1.5 Kiana high-field MRI scanner. Magnetic resonance imaging of the thoracic spine was performed WITHOUT injected contrast using standard department protocols. FINDINGS: ALIGNMENT: Stable moderate scoliosis. Minimal anterolisthesis of C7 on T1. VERTEBRAL BODIES: Vertebral body heights appear maintained. Bone marrow signal pattern is within normal limits. INTERVERTEBRAL DISCS: Asymmetrical loss of height of multiple discs due to scoliotic curvature. SPINAL CORD/CONUS: Included spinal cord has normal caliber and signal characteristics. The conus terminates normally at L1. Level by level analysis yields the following: Small disc osteophyte complex at C6-C7 contributes to mild canal stenosis and mild bilateral neuroforaminal stenosis. Tiny central disc protrusions are identified at almost all levels along the thoracic spine. No significant canal stenosis identified throughout the thoracic spine. Evaluation of the neuroforamina is limited due to scoliosis. No significant neuroforamina stenosis demonstrated in the axial images obtained at selected levels. 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 Partially evaluated T2 hyperintense right renal lesion which likely correlates with cyst seen in the previous CT study. Posterior paraspinal soft tissues are unremarkable. Procedure Note Christelle Hernandez MD - 05/31/2020 EXAM: MRI THORACIC SPINE (BONE) WITHOUT CONTRAST COMPARISON: MR of the thoracic spine on March 29, 2016. CT on [id number]. HISTORY: BOWEL CHANGES S/P LUMBAR FUSION 2017 WITH LOWER EXTREM WEAKNESS Study notes from technologist: Patient states left leg weakness,difficulty walking due to left leg feeling like it might give out. Has touse walker. Symptoms increasing over past 2-3 months. No trauma. No priorsurgery to t-spine TECHNIQUE: Exam performed on a 1.5 Kiana high-field MRI scanner. Magneticresonance imaging of the thoracic spine was performed WITHOUT injectedcontrast using standard department protocols. FINDINGS: ALIGNMENT: Stable moderate scoliosis. Minimal anterolisthesis of C7 onT1. VERTEBRAL BODIES: Vertebral body heights appear maintained. Bone marrowsignal pattern is within normal limits. INTERVERTEBRAL DISCS: Asymmetrical loss of height of multiple discs due toscoliotic curvature. SPINAL CORD/CONUS: Included spinal cord has normal caliber and signalcharacteristics. The conus terminates normally at L1. Level by level analysis yields the following: Small disc osteophyte complex at C6-C7 contributes to mild canal stenosisand mild bilateral neuroforaminal stenosis. Tiny central disc protrusions are identified at almost all levels alongthe thoracic spine. No significant canal stenosis identified throughoutthe thoracic spine. Evaluation of the neuroforamina is limited due toscoliosis. No significant neuroforamina stenosis demonstrated in the axialimages obtained at selected levels. OTHERS:Stable dilatation of the descending thoracic aorta with chronicdissection. Partially evaluated T2 hyperintense right renal lesion whichlikely correlates with cyst seen in the previous CT study. Posteriorparaspinal soft tissues are unremarkable. IMPRESSION: Stable moderate thoracic scoliosis. Mild degenerative disc disease atalmost every thoracic level. No significant canal stenosis. Noneuroforaminal stenosis at obtained at selected levels. John Cook DO IMG MR XSPECIALTY Final Resu lt documented in this encounter Visit Diagnoses Diagnosis Weakness of left lower extremity Weakness of lower extremity, unspecified laterality Weakness of lower extremity, unspecified laterality Weakness of left lower extremity documented in this encounter Additional Health Concerns Infection Onset Date Last Indicated Resolved Time CoV-Risk 08/21/2022 08/21/2022 09/01/2022 1:23 AM EST CoV-Risk 11/16/2023 11/16/2023 11/27/2023 1:21 AM EDT Assessment Noted Time PHQ-9 Depression Total Score: 15 018 2:17 PM EST PHQ-2 Depression Total Score: 0 05/02/20 20 11:37 AM EDT documented as of this encounter Care Teams Event Specialist Relationship Specialty Start Date End Date Xuan Ferraro DO [address] [place] [address] [email or web address] PCP - General 09/15/18 01/15/21 Harris Lennon MD [address] [place] [address], [address] [place] [address] PCP - General Internal Medicine 01/16/21 Xuan Ferraro DO [address] [place] [address] [email or web address] Insurance Assigned Provider 06/09/19 10/06/21 Kory Vogt MD [address] [place] [address] [email or web address] Gastroenterology 10/07/21 Xuan Ferraro DO [address] [place] [address] [email or web address] Insurance Assigned Provider 06/09/19 12/19/21 Harris Lennon MD [address] [place] [address], [address] [place] [address] [email or web address] Insurance Assigned Provider 12/17/23 Margarita Davidson RN [address] [place] [address], [address] [place] [address] [email or web address] Nanotechnician 06/02/22 06/29/22 Margarita Davidson RN [address] [place] [address], [address] [place] [address] [email or web address] iCMP NanotechnicianStructural Steel Worker 07/01/22 02/17/25 Jyoti Aviles, OT [address] [place] [address] [email or web address] Transitions NanotechnicianProbation Worker Therapy 12/12/2312/14/23 documented as of this encounter Additional Source Comments The information contained in this document represents components of the legal health record. It is not the complete legal health record.[facility]
--- OUTSIDE RECORDS SUMMARY | 2025-05-21 12:55 | XMS_ITS | Encounter Summary ---
Author Organization [facility] Address [address] [place] [address] Phone Care Team Providers Care Community Education Specialist Name Role Phone Xuan Ferraro DO Primary Care Provider + [phone] Xuan Ferraro DO Unavailable [phone] Harris Lennon MD Primary Care Provider Kory Vogt MD Unavailable Xuan Ferraro DO Unavailable [phone] Harris Lennon MD Unavailable [phone] Margarita Davidson RN Unavailable [email or web address] Margarita Davidson RN Unavailable [email or web address] Jyoti Aviles OT Unavailable [phone] Encounter Details Date Type Department Care Team (Late st Contact Info) Description 07/02/2020 Procedure Pass [facility], Ct Scan - [address] [address] Social History Tobacco Use Types Packs/Day Years [...] Info) Description 04/08/2025 Procedure Pass Echo Lab [address] [place] [address] 07/30/2025 10:45 AM EST Office Visit [facility] [address] [place] [address] [place] [address] Harris Lennon MD [address] [place] [address], [address] [place] [address] 09/09/2025 11:15 AM EST Appointment Echo Lab [address] [place] [address] Stacie Gruber PA-C [address] [place] [address] 09/27/2025 10:40 AM EST Office Visit [facility] [address] [place] [address] 3rd Floor, [address] [place] [address] Davidson Gunter MD [address] [place] [address], [address] [place] [address] 02/14/2026 10:10 AM EDT Office Visit [facility] [address] [place] [address] [place] [address] Talon Seth DO [address] [place] [address] documented as of this encounter Visit Diagnoses [...] documented as of this encounter Care Teams Community Education Specialist Relationship Specialty Start Date End Date Xuan Ferraro DO [address] [place] [address] [email or web address] PCP - General 09/15/18 01/15/21 Harris Lennon MD [address] [place] [address], [address] [place] [address] [email or web address] PCP - General Internal Medicine 01/16/21 Xuan Ferraro DO [address] [place] [address] [email or web address] Insurance Assigned Provider 06/09/19 10/06/21 Kory Vogt MD [address] [place] [address] Gastroenterology 10/07/21 Xuan Ferraro DO [address] [place] [address] [email or web address] Insurance Assigned Provider 06/09/19 12/19/21 Harris Lennon MD [address] [place] [address], [address] [place] [address] [email or web address] Insurance Assigned Provider 12/17/23 Margarita Davidson RN [address] [place] [address], [address] [place] [address] [email or web address] iCMP Social Worker School 06/02/22 06/29/22 Margarita Davidson, RN [facility], [address] [place] [address] [email or web address] iCMP Social Worker SchoolManager Center 07/01/22 02/17/25 Jyoti Aviles, OT [address] [place] [address] [email or web address] Transitions Social Worker SchoolWire Rigger Therapy 12/12/2312/14/23 documented as of this encounter Additional Source Comments The information contained in this document represents components of the legal health record. It is not the complete legal health record.[facility]
--- OUTSIDE RECORDS SUMMARY | 2025-05-21 12:55 | XMS_ITS | Encounter Summary ---
Author Organization [facility] Address [address] [place] [address] Phone Care Team Providers Care Soft Shoe Dancer Name Role Phone Harris Lennon MD Primary Care Provider [phone] Kory Vogt MD Unavailable Xuan Ferraro DO Unavailable [phone] Harris Lennon MD Unavailable [phone] Margarita Davidson RN Unavailable [email or web address] Margarita Davidson RN Unavailable [email or web address] Jyoti Aviles OT Unavailable [phone] Encounter Details Date Type Department Care Team (Late st Contact Info) Description 11/26/2021 Procedure Pass [facility], Ct Scan - [address] [address] Social History Tobacco Use Types Packs/Day Years [...] Info) Description 04/08/2025 Procedure Pass Echo Lab [address] [place] [address] 07/30/2025 10:45 AM EST Office Visit [facility] [address] [place] [address] [place] [address] Harris Lennon MD [address] [place] [address], [address] [place] [address] 09/09/2025 11:15 AM EST Appointment Echo Lab [address] [place] [address] Stacie Gruber PA-C [address] [place] [address] 09/27/2025 10:40 AM EST Office Visit [facility] [address] [place] [address] Dr 3rd Floor, [address] [place] [address] Davidson Gunter MD [address] [place] [address], [address] [place] [address] 02/14/2026 10:10 AM EDT Office Visit [facility] [address] [place] [address] [place] [address] Talon Seth DO [address] [place] [address] documented as of this encounter Visit Diagnoses [...] documented as of this encounter Care Teams Soft Shoe Dancer Relationship Specialty Start Date End Date Harris Lennon MD [address] [place] [address], [address] [place] [address] PCP - General Internal Medicine 01/16/21 Kroy Vogt MD [address] [place] [address] Gastroenterology 10/07/21 Xuan Ferraro DO [address] [place] [address] [email or web address] Insurance Assigned Provider 06/09/19 12/19/21 Harris Lennon MD [address] [place] [address], [address] [place] [address] Insurance Assigned Provider 12/17/23 Margarita Davidson RN [address] [place] [address], [address] [address] [email or web address] iCMP Pill Coater 06/02/22 06/29/22 Margarita Davidson RN [address] [place] [address], [address] [place] [address] [email or web address] iCMP Pill CoaterChair Finisher 07/01/22 02/17/25 Jyoti Aviles, OT [address] [place] [address] [email or web address] Transitions Pill CoaterRib Puller Therapy 12/12/2312/14/23 documented as of this encounter Additional Source Comments The information contained in this document represents components of the legal health record. It is not the complete legal health record.[facility]
--- OUTSIDE RECORDS SUMMARY | 2025-05-21 12:55 | XMS_ITS | Encounter Summary ---
Author Organization [facility] [place] [facility] Address [address] [place] [address] Phone Care Team Providers Care Car Repair Supervisor Name Role Phone Harris Lennon MD Primary Care Provider [phone] Kory Vogt MD Unavailable Xuan eFrraro DO Unavailable [phone] Harris Lennon MD Unavailable [phone] Margarita Davidson RN Unavailable [email or web address] Margarita Davidson RN Unavailable [email or web address] Jyoti Aviles OT Unavailable [phone] Encounter Details Date Type Department Care Team (Latest Contact Info) Description 10/26/2021 Transcribe Orders [facility] Laboratory [address] [address] Margarita Hart, NIKO [address] [place] [address] Fecal smearing (Primary Dx); Diarrhea, unspecified type; Rectal bleeding Social History Tobacco Use Types Packs/Day Years [...] 4:08 PM EST Sexual Orientation Straight 10/12/2017 4 :08 PM EST 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 Not on file Not on file Not on file documented as of this encounter Plan of Treatment Upcoming Encounters Date Type Department Care Team (Late st Contact Info) Description 04/08/2025 Procedure Pass Echo Lab [address] [place] [address] 07/30/2025 10:45 AM EST Office Visit [address] [place] [address] Harris Lennon MD [address] [place] [address], [address] [place] [address] 09/09/2025 11:15 AM EST Appointment Echo Lab [address] [place] [address] Stacie Gruber PA-C [address] [place] [address] 09/27/2025 10:40 AM EST Office Visit [facility] [address] [place] [address] 3rd Floor, [address] [place] [address] Davidson Gunter MD [address] [place] [address], [address] [place] [address] 02/14/2026 10:10 AM EDT Office Visit [facility] [address] [place] [address] [place] [address] Talon Seth DO [address] [place] [address] documented as of this encounter Results * (ABNORMAL) Stool fat/fiber exam (10/27/2021 8:35 AM EST) FATTY ACID INCREASED( A) NORMAL [facility] Neutral Fat, stool INCREASED( A) NORMAL [facility] Stool (Stool) 10/27/2021 8:3 5 AM EST 10/27/2021 9:59 AM EST Margarita Hart NP BODY FLUIDS AND STOOLS OR DERABLES Final Result Performing Organization Address [facility]/ZIP Co de Phone Number [address] [address] * Pancreatic Elastase, Stool (10/27/2021 8:35 AM EST) Pathologist [facility] Pancreatic Elastase, Feces 488 >200 (Normal) mcg/g [facility] Stool (Stool) 10/27/2021 8:3 5 AM EST 10/27/2021 9:59 AM EST Margarita Hart NP BODY FLUIDS AND STOOLS OR DERABLES Final Result Performing Organization Address [facility] de Phone Number [facility] [address] [place] [address] * C-Reactive Protein (10/26/2021 12:00 PM EST) Pathologist [facility] C REACTIVE PROTEIN 3.8 0.0 - 4.0 mg/L [facility] Blood 10/26/2021 12:0 0 PM EST 10/26/2021 12:05 PM EST Margarita Hart NP LAB BLOOD ORDERABLES Sofía l Result Performing Organization Address [facility] Co de Phone Number [address] [address] * (ABNORMAL) Comprehensive metabolic panel (10/26/2021 12:00 PM EST) SODIUM 135 133 - 146 mmol/L [facility] POTASSIUM 4.8 3.3 - 5.1 mmol/L [facility] CHLORIDE 101 96 - 108 mmol/L [facility] CO2 25 21 - 35 mmol/L [facility] BUN 12 6 - 19 mg/dL [facility] CREATININE 0.60 0.5 - 1.5 mg/dL [facility] GLUCOSE 109(H) 70 - 99 mg/dL [facility] ALBUMIN 4.5 3.9 - 4.8 g/dL [facility] TOTAL PROTEIN 7.3 6.5 - 8.0 g/dL [facility] CALCIUM 9.2 8.4 - 10.3 mg/dL [facility] ALKALINE PHOSPHATASE 64 39 - 117 U/L [facility] TOTAL BILIRUBIN 0.3 0.0 - 1.2 mg/dL [facility] AST 36 0 - 37 U/L [facility] ALT 21 0 - 40 U/L [facility] GLOBULIN 2.8 1 - 4.8 g/dL [facility] EGFR 92 >59 mL/min/1.7 3m2 [facility] Comment:Estimated glomerular filtration rate calculated using the CKD-EPI refit equation. ANION GAP 14 10 - 20 mmol/L [facility] Blood 10/26/2021 12:0 0 PM EST 10/26/2021 12:05 PM EST us Margarita Hart NP LAB BLOOD ORDERABLES Sofía hodge Result Performing Organization Address City/State/[facility] Co de Phone Number [address] [address] * (ABNORMAL) CBC (10/26/2021 12:00 PM EST) WBC 6.17 4.00 - 11.00 K/uL [facility] RBC 4.18 3.72 - 5.30 M/uL [facility] HGB 12.7 11.4 - 15.9 g/dL [facility] HCT 40.1 34.2 - 46.8 % [facility] PLT 250 140 - 430 K/uL [facility] MCV 95.9 78.0 - 97.0 fL [facility] MCH 30.4 25.0 - 33.0 pg [facility] MCHC 31.7(L) 32.0 - 36.0 g/dL [facility] RDW 13.6 11.0 - 16.0 % [facility] MPV 10.2 8.4 - 12.8 fl [facility] NRBC 0.00 0 /100 WBCs [facility] ABSOLUTE NRBC 0.00 0 K/uL [facility] Blood 10/26/2021 12:0 0 PM EST 10/26/2021 12:05 PM EST Margarita Hart BOOK STORE ASSOCIATE LAB BLOOD ORDERABLES Sofía l Result Performing Organization Address City/[facility] Co de Phone Number [address] [address] * Immunoglobulin A (10/26/2021 12:00 PM EST) Pathologist [facility] IgA 164 70 - 400 mg/dL [facility] Blood 10/26/2021 12:0 0 PM EST 10/26/2021 12:05 PM EST [facility] Irma Hart NP LAB BLOOD ORDERABLES Sofía l Result Performing Organization Address [facility] de Phone Number [address] [address] * Tissue transglutaminase IgA (10/26/2021 12:00 PM EST) TTG IGA ANTIBODY <1.2 <4.0 (Negative) U/mL [facility] Blood 10/26/2021 12:0 0 PM EST 10/26/2021 12:06 PM EST [facility] BLOOD ORDERABLES Sofía l Result Performing Organization Address [facility] de Phone Number [facility] [address] [place] [address] documented in this encounter Visit Diagnoses Diagnosis Fecal smearing- Primary Diarrhea, unspecified type Rectal bleeding Hemorrhage of rectum and anus documented in this encounter Additional Health Concerns Infection Onset Date Last Indicated Resolved Time CoV-Risk 08/21/2022 08/21/2022 09/01/2022 1:23 AM EST CoV-Risk 11/16/2023 11/16/2023 11/27/2023 1:21 AM EDT Assessment Noted Time PHQ-9 Depression Total Score: 15 018 2:17 PM EST PHQ-2 Depression Total Score: 0 10/07/19 2:55 PM EST documented as of this encounter Care Teams Car Repair Supervisor Relationship Specialty Start Date End Date Harris Lennon MD [address] [place] [address], [address] [place] [address] PCP - General Internal Medicine 01/16/21 Kory Vogt MD [address] [place] [address] Gastroenterology 10/07/21 Xuan Ferraro DO [address] [place] [address] [email or web address] Insurance Assigned Provider 06/09/19 12/19/21 Harris Lennon MD [address] [place] [address] Insurance Assigned Provider 12/17/23 Margarita Davidson RN [address] [place] [address], [address] [address] [email or web address] iCMP Videotape Recording Engineer 06/02/22 06/29/22 Margarita Davidson RN [address] [place] [address], [address] [address] [email or web address] iCMP Videotape Recording EngineerCupola Liner 07/01/22 02/17/25 Jyoti Aviles, OT [address] [place] [address] Transitions Videotape Recording EngineerBusiness Analysis Analyst Therapy 12/12/2312/14/23 documented as of this encounter Additional Source Comments The information contained in this document represents components of the legal health record. It is not the complete legal health record.[facility]
--- OUTSIDE RECORDS SUMMARY | 2025-05-21 12:55 | XMS_ITS | Encounter Summary ---
Author Organization [facility] Address [address] [place] [address] Phone Care Team Providers Care Flame Gouger Name Role Phone Xuan Ferraro DO Primary Care Provider + [phone] Xuan Ferraro DO Unavailable [phone] Harris Lennon MD Primary Care Provider Kory Vogt MD Unavailable Xuan Ferraro DO Unavailable [phone] Harris Lennon MD Unavailable [phone] Margarita Davidson RN Unavailable [email or web address] Margarita Davidson RN Unavailable [email or web address] Jyoti Aviles OT Unavailable [phone] Reason for Referral * Physical Therapy (Elective) - Closed Specialty Diagnoses / Procedures Referred By Kelvin waddell Referred To Contact Physical Therapy Diagnoses Encounter for rehabilitation PELVIC FLOOR , Urinary and Fecal Incontinence Maritza Rodriguez NP Phone: tel: fax: [address] [address] Phone: tel: Referral ID Status Reason Start Date Expiration Date Visits Re quested Visits Authorized [id number] Closed 07/15/2020 09/11/2020 99 [phone] Encounter Details Date Type Department Care Team (Latest Contact Info) Description 07/10/2020 Transcribe Orders [facility] [address] [place] [address] Maritza Rodriguez, OFFICE NURSE PRACTITIONER [address] [facility] [place] [address] Encounter for rehabilitation (Primary Dx) Social History Tobacco Use Types [...] Description 04/08/2025 Procedure Pass Echo Lab [address] [place] [address] 07/30/2025 10:45 AM EST Office Visit [address] [place] [address] Harris Lennon MD [address] [place] [address], [address] [place] [address] 09/09/2025 11:15 AM EST Appointment Echo Lab [address] [place] [address] Stacie Gruber PA-C [address] [place] [address] 09/27/2025 10:40 AM EST Office Visit [facility] [address] [place] [address] 3rd Floor, [address] [place] [address] Davidson Gunter MD [address] [facility], [address] [place] [address] [email or web address] 02/14/2026 10:10 AM EDT Office Visit [facility] [address] [place] [address] Talon Seth DO [address] [place] [address] [email or web address] Scheduled Referrals Name Type Priority Associated Diagnoses Orde r Schedule Ambulatory referral to [facility] Physical Therapy Outpatient Referral Routine Encounter for rehabilitation Ordered: 07/10/2020 documented as of this encounter Visit Diagnoses Diagnosis Encounter for rehabilitation- Primary documented in this encounter Additional Health Concerns Infection Onset Date Last Indicated Resolved Time CoV-Risk 08/21/2022 08/21/2022 09/01/2022 1:23 AM EST CoV-Risk 11/16/2023 11/16/2023 11/27/2023 1:21 AM EDT Assessment Noted Time PHQ-9 Depression Total Score: 15 018 2:17 PM EST PHQ-2 Depression Total Score: 0 05/02/20 20 11:37 AM EDT documented as of this encounter Care Teams Flame Gouger Relationship Specialty Start Date End Date Xuan Ferraro DO [address] [place] [address] PCP - General 09/15/18 01/15/21 Harris Lennon MD [address] [place] [address], [address] [place] [address] [email or web address] PCP - General Internal Medicine 01/16/21 Xuan Ferraro DO [address] [place] [address] Insurance Assigned Provider 06/09/19 10/06/21 Kory Vogt MD [address] [place] [address] [email or web address] Gastroenterology 10/07/21 Xuan Ferraro DO [address] [place] [address] [email or web address] Insurance Assigned Provider 06/09/19 12/19/21 Harris Lennon MD [address] [place] [address], [address] [place] [address] [email or web address] Insurance Assigned Provider 12/17/23 Margarita Davidson RN [address] [place] [address], [address] [place] [address] [email or web address] iCMP Bobcat Operator 06/02/22 06/29/22 Margarita Davidson RN [address] [place] [address], [address] [place] [address] [email or web address] iCMP Bobcat OperatorStructural Steel Erection Supervisor 07/01/22 02/17/25 Jyoti Aviles, OT [address] [place] [address] [email or web address] Transitions Bobcat OperatorPricing Lead Therapy 12/12/2312/14/23 documented as of this encounter Additional Source Comments The information contained in this document represents components of the legal health record. It is not the complete legal health record.[facility]
--- OUTSIDE RECORDS SUMMARY | 2025-05-21 12:56 | XMS_ITS | Encounter Summary ---
Author Organization [facility] Address [address] [place] [address] Phone Care Team Providers Care Greens Planter Name Role Phone Xuan Ferraro DO Unavailable [phone] Harris Lennon MD Primary Care Provider [phone] Kory Vogt MD Unavailable Xuan Ferraro DO Unavailable [phone] Harris Lennon MD Unavailable [phone] Margarita Davidson RN Unavailable [email or web address] Margarita Davidson RN Unavailable [email or web address] Jyoti Aviles OT Unavailable [phone] Encounter Details Date Type Department Care Team (Late st Contact Info) Description 05/20/2021 Procedure Pass [facility], Ct Scan - [address] [address] Social History Tobacco Use Types Packs/Day Years [...] Date of Assessment Author No Risk Indicated 05/20/2021 11:28 AM EDT Chloe Robles RN * [place] Suicide Severity Rating Scale (Screener/Recent Self-Report) Question Answer Date of Assessment Author 1. Wish to be (Past 1 Month) No 021 11:28 AM EDT Chloe Robles RN 2. Non-Specific Active Suici reese Thoughts (Past 1 Month) No 05/20/2021 11:28 AM EDT Chloe Robles RN 6. Suicidal Behavior (Lifetime) No 11:28 AM EDT Chloe Robles RN documented as of this encounter Plan of Treatment Upcoming Encounters Date Type Department Care Team (Late st Contact Info) Description 04/08/2025 Procedure Pass Echo Lab [address] [place] [address] 07/30/2025 10:45 AM EST Office Visit [facility] [address] [place] [address] [place] [address] Harris Lennon MD [address] [place] [address], [address] [place] [address] 09/09/2025 11:15 AM EST Appointment Echo Lab [address] [place] [address] Stacie Gruber PA-C [address] [place] [address] 09/27/2025 10:40 AM EST Office Visit [facility] [address] [place] [address] 3rd Floor, [address] [place] [address] Davidson Gunter MD [address] [place] [address], [address] [place] [address] 02/14/2026 10:10 AM EDT Office Visit [place] [address] [place] [address] documented as of this encounter Visit Diagnoses [...] documented as of this encounter Care Teams Greens Planter Relationship Specialty Start Date End Date Harris Lennon MD [address] [place] [address] [address] [place] [address] PCP - General Internal Medicine 01/16/21 Xuan Ferraro DO [address] [place] [address] [email or web address] Insurance Assigned Provider 06/09/19 10/06/21 Kory Vogt MD [address] [place] [address] Gastroenterology 10/07/21 Xuan Ferraro DO [address] [place] [address] [email or web address] Insurance Assigned Provider 06/09/19 12/19/21 Harris Lennon MD [address] [place], [place] [address] [place] [address] [email or web address] Insurance Assigned Provider 12/17/23 Margarita Davidson RN [address] [facility], [address] [place] [address] iCMP Assistant Passenger Locomotive Engineer 06/02/22 06/29/22 Margarita Davidson RN [address] [place] [address], [address] [place] [address] [email or web address] iCMP Assistant Passenger Locomotive EngineerBudget Specialist 07/01/22 02/17/25 Jyoti Aviles, OT [address] [place] [address] [email or web address] Transitions Assistant Passenger Locomotive EngineerDatabase Dba Therapy 12/12/2312/14/23 documented as of this encounter Additional Source Comments The information contained in this document represents components of the legal health record. It is not the complete legal health record.[facility]
--- OUTSIDE RECORDS SUMMARY | 2025-05-21 12:56 | XMS_ITS | Encounter Summary ---
Author Organization [facility] Address [address] [place] [address] Phone Care Team Providers Care Pipe And Tank Fabricator Name Role Phone Xuan Ferraro DO Unavailable [phone] Harris Lennon MD Primary Care Provider [phone] Kory Vogt MD Unavailable Xuan Ferraro DO Unavailable [phone] Harris Lennon MD Unavailable [phone] Margarita Davidson RN Unavailable [email or web address] Margarita Davidson RN Unavailable [email or web address] Jyoti Aviles OT Unavailable Encounter Details Date Type Department Care Team (Late st Contact Info) Description 07/28/2021 Procedure Pass [address] [address] Social History Tobacco Use Types Packs/Day Years [...] Info) Description 04/08/2025 Procedure Pass Echo Lab [address] [place] [address] 07/30/2025 10:45 AM EST Office Visit [facility] Medicine [address] [place] [address] [place] [address] Harris Lennon MD [address] [place] [address], [address] [place] [address] 09/09/2025 11:15 AM EST Appointment Echo Lab [address] [place] [address] Stacie Gruber PA-C [address] [place] [address] 09/27/2025 10:40 AM EST Office Visit [facility] [address] [place] [address] [address]rd Floor, [address] [place] [address] Davidson Gunter MD [address] [place] [address], [address] [address] 02/14/2026 10:10 AM EDT Office Visit [facility] [address] [place] [address] [place] [address] Talon Seth DO [address] [place] [address] documented as of this encounter Visit Diagnoses [...] documented as of this encounter Care Teams Pipe And Tank Fabricator Relationship Specialty Start Date End Date Harris Lennon MD [address] [place] [address], [address] [place] [address] PCP - General Internal Medicine 01/16/21 Xuan Ferraro DO [address] [place] [address] [email or web address] Insurance Assigned Provider 06/09/19 10/06/21 Kory Vogt MD [address] [place] [address] Gastroenterology 10/07/21 Xuan Ferraro DO [address] [place] [address] [email or web address] Insurance Assigned Provider 06/09/19 12/19/21 Harris Lennon MD [address] [place] [address], [address] [place] [address] Insurance Assigned Provider 12/17/23 Margarita Davidson RN [address] [place] [address], [address] [place] [address] [email or web address] iCMP Turn Down Worker 06/02/22 06/29/22 Margarita Davidson RN [address] [place] [address], [address] [place] [address] [email or web address] iCMP Turn Down WorkerPanel Machine Tender 07/01/22 02/17/25 Jyoti Aviles, OT [address] [place] [address] [email or web address] Transitions Turn Down WorkerStaff Editor Therapy 12/12/2312/14/23 documented as of this encounter Additional Source Comments The information contained in this document represents components of the legal health record. It is not the complete legal health record.[facility]
--- OUTSIDE RECORDS SUMMARY | 2025-05-21 12:56 | XMS_ITS | Encounter Summary ---
Author Organization [facility] Address [address] [place] [address] Phone Care Team Providers Care Shaker Tender Name Role Phone Damien Lance MD Primary Care Provide r Xuan Ferraro DO Primary Care Provider + [phone] Damien Lance MD Unavailable [phone] Xuan Ferraro DO Unavailable [phone] Harris Lennon MD Primary Care Provider + [phone] Kory Vogt MD Unavailable Xuan Ferraro DO Unavailable [phone] Harris Lennon MD Unavailable [phone] Margarita Davidson RN Unavailable [email or web address] Margarita Davidson RN Unavailable [email or web address] Jyoti Aviles OT Unavailable [phone] Encounter Details Date Type Department Care Team (Late st Contact Info) Description 03/29/2018 Ancillary Orders [facility] [address] [place] [address] Damien Lance MD [address] [facility] Floor 1 [place] [address] [email or web address] Breast screening Social History Tobacco Use Types [...] Info) Description 04/08/2025 Procedure Pass [facility] [address] [place] [address] 07/30/2025 10:45 AM EST Office Visit [address] [place] [address] Harris Lennon MD [address] [place] [address], [address] [place] [address] 09/09/2025 11:15 AM EST Appointment Echo Lab [address] [place] [address] Stacie Gruber PA-C [address] [place] [address] 09/27/2025 10:40 AM EST Office Visit [facility] [address] [place] [address] 3rd Floor, [address] [place] [address] Davidson Gunter MD [address] [place] [address], [address] [place] [address] 02/14/2026 10:10 AM EDT Office Visit [facility] [address] [place] [address] [place] [address] Talon Seth DO [address] [place] [address] [email or web address] documented as of this encounter Results * BI MAMMOGRAM SCREENING WITH TOMOSYNTHESIS WITH CAD (BILATERAL) (05/11/2018 12:55 PM EDT) Anatomical Region Laterality Modality Breast Left, Breast Right, Breast Bilateral Bila teral Mammography 05/11/2018 1:23 PM EDT Impressions 05/11/2018 1:25 PM EDT Stable appearance relative to prior imaging. No findings suggestive of malignancy are seen. BI-RADS CATEGORY: 2 - Benign finding. DENSITY: There are scattered fibroglandular densities. POS - [id number] Narrative 05/11/2018 1:25 PM EDT Full-field digital mammography is obtained with computer-aided detection. Comparison with prior imaging from 05/09/2017 is made with older imaging dating back as far as 12/28/2010 also reviewed. There is scattered fibroglandular density evident in the breasts. In addition to 2-D C view imaging, tomosynthesis images are obtained in two projections of each breast. Bilateral vascular calcifications are unchanged.. No dominant soft tissue mass of concern, suspicious cluster of calcifications, significant interval skin changes, or architectural distortion is identified. Procedure Note Robin Joy MD - 05/11/2018 Full-field digital mammography is obtained with computer-aided detection.Comparison with prior imaging from 05/09/2017 is made with older imagingdating back as far as 12/28/2010 also reviewed. There is scattered fibroglandular density evident in the breasts. Inaddition to 2-D C view imaging, tomosynthesis images are obtained in twoprojections of each breast. Bilateral vascular calcifications are unchanged.. No dominant soft tissuemass of concern, suspicious cluster of calcifications, significantinterval skin changes, or architectural distortion is identified. IMPRESSION: Stable appearance relative to prior imaging. No findings suggestive ofmalignancy are seen. BI-RADS CATEGORY: 2 - Benign finding. DENSITY: There are scattered fibroglandular densities. POS - [id number] Damien Lance MD IMG MG EXAMS Final Result documented in this encounter Visit [...] documented as of this encounter Care Teams Shaker Tender Relationship Specialty Start Date End Date Damien Lance MD [email or web address] PCP - General Internal Medicine 07/18/17 09/14/18 Xuan Ferraro DO [address] [place] [address] [email or web address] PCP - General 09/15/18 01/15/21 Harris Lennon MD [address] [facility], [address] [place] [address] [email or web address] PCP - General Internal Medicine 01/16/21 Damien Lance MD [address] [facility] Floor 1 [place] [address] [email or web address] Insurance Assigned Provider 07/16/17 06/09/19 Xuan Ferraro DO [address] [place] [address] Insurance Assigned Provider 06/09/19 10/06/21 Kory Vogt MD [address] [address] [email or web address] Gastroenterology 10/07/21 Xuan Ferraro DO [address] [place] [address] [email or web address] Insurance Assigned Provider 06/09/19 12/19/21 Harris Lennon MD [address] [place] [address], [address] [place] [address] [email or web address] Insurance Assigned Provider 12/17/23 Margarita Davidson RN [address] [place] [address], [address] [place] [address] [email or web address] iCMP Autocad Operator 06/02/22 06/29/22 Margarita Davidson RN [address] [place] [address], [address] [place] [address] [email or web address] iCMP Autocad OperatorMedia Reporter 07/01/22 02/17/25 Jyoti Aviles, OT [address] [place] [address] [email or web address] Transitions Autocad OperatorCredit Risk Officer Therapy 12/12/2312/14/23 documented as of this encounter Additional Source Comments The information contained in this document represents components of the legal health record. It is not the complete legal health record.[facility]
--- OUTSIDE RECORDS SUMMARY | 2025-05-21 12:56 | XMS_ITS | Encounter Summary ---
Author Organization [facility] Address [address] [place] [address] Phone Care Team Providers Care Explosive Operator Name Role Phone Xuan Ferraro DO Unavailable [phone] Harris Lennon MD Primary Care Provider [phone] Kory Vogt MD Unavailable Xuan Ferraro DO Unavailable [phone] Harris Lennon MD Unavailable [phone] Margarita Davidson RN Unavailable [email or web address] Margarita Davidson RN Unavailable [email or web address] Jyoti Aviles OT Unavailable [phone] Encounter Details Date Type Department Care Team (Late st Contact Info) Description 08/24/2021 Ancillary Orders [facility]Outside Imaging [address] [place], [place] [id number] System, Provider Not In, PhD Partners [address] [address] Social History Tobacco Use Types Packs/Day Years [...] Description 04/08/2025 Procedure Pass Echo Lab [address] [place] [address] 07/30/2025 10:45 AM EST Office Visit [facility] [address] [place] [address] [place] [address] Harris Lennon MD [address] [place] [address], [address] [place] [address] 09/09/2025 11:15 AM EST Appointment Echo [facility] [address] [place] [address] Stacie Gruber PA-C [address] [place] [address] 09/27/2025 10:40 AM EST Office Visit [facility] [address] [place] [address] 3rd Floor, [address] [place] [address] Davidson Gunter MD [address] [place] [address], [address] [place] [address] 02/14/2026 10:10 AM EDT Office Visit [facility] [address] [place] [address] [place] [address] Talon Seth DO [address] [place] [address] documented as of this encounter Results * CT Chest Outside (No Interpretation) (08/18/2021 12:00 AM EST) Narrative SYSTEMGENERATED, DOCUMENTATION - 08/24/2021 2:30 PM EST This study is for PACS storage only and not for interpretation. us Provider Not In System PhD IMG OUTSIDE IMAGING W /OUT INTERPRETATION Final Result documented in this encounter Visit [...] documented as of this encounter Care Teams Explosive Operator Relationship Specialty Start Date End Date Harris Lennon MD [address] [place] [address], [address] [place] [address] PCP - General Internal Medicine 01/16/21 Xuan Ferraro DO [address] [place] [address] [email or web address] Insurance Assigned Provider 06/09/19 10/06/21 Kory oVgt MD [address] [address] Gastroenterology 10/07/21 Xuan Ferraro DO [address] [place] [address] [email or web address] Insurance Assigned Provider 06/09/19 12/19/21 Harris Lennon MD [address] [place] [address], [address] [place] [address] [email or web address] Insurance Assigned Provider 12/17/23 Margarita Davidson RN [address] [facility], [address] [place] [address] [email or web address] iCMP Ferry Terminal Supervisor 06/02/22 06/29/22 Margarita Davidson RN [address] [place] [address], [address] [place] [address] [email or web address] iCMP Ferry Terminal SupervisorChemical Preparer 07/01/22 02/17/25 Jyoti Aviles, OT [address] [place] [address] [email or web address] Transitions Ferry Terminal SupervisorAuditor In Charge Therapy 12/12/2312/14/23 documented as of this encounter Additional Source Comments The information contained in this document represents components of the legal health record. It is not the complete legal health record.[facility]
--- OUTSIDE RECORDS SUMMARY | 2025-05-21 12:56 | XMS_ITS | Encounter Summary ---
Author Organization [facility] Address [address] [place] [address] Phone Care Team Providers Care Relief Operator Name Role Phone Harris Lennon MD Primary Care Provider [phone] Kory Vogt MD Unavailable Harris Lennon MD Unavailable [phone] Margarita Davidson RN Unavailable [email or web address] Jyoti Aviles OT Unavailable [phone] Encounter Details Date Type Department Care Team (Late st Contact Info) Description 08/08/2023 Procedure Pass [facility], [address] [address] Social History Tobacco Use Types Packs/Day Years [...] Info) Description 04/08/2025 Procedure Pass Echo Lab [address] [place] [address] 07/30/2025 10:45 AM EST Office Visit [facility] [address] [place] [address] [place] [address] Harris Lennon MD [address] [place] [address], [address] [place] [address] 09/09/2025 11:15 AM EST Appointment Echo Lab [address] [place] [address] Stacie Gruber PA-C [address] [place] [address] 09/27/2025 10:40 AM EST Office Visit [facility] [address] [place] [address] Dr 3rd Floor, [address] [place] [address] Davidson Gunter MD [address] [place] [address], [address] [place] [address] 02/14/2026 10:10 AM EDT Office Visit [facility] [address] [place] [address] [place] [address] Talon Seth DO 22 [place] [address] documented as of this encounter Visit Diagnoses Not on filedocumented in this encounter Additional Health Concerns Infection Onset Date Last Indicated Resolved Time CoV-Risk 11/16/2023 11/16/2023 11/27/2023 1:21 AM EDT Assessment Noted Time PHQ-9 Depression Total Score: 15 018 2:17 PM EST PHQ-2 Depression Total Score: 0 06/22/20 23 1:25 PM EDT documented as of this encounter Care Teams Relief Operator Relationship Specialty Start Date End Date Harris Lennon MD [address] [place] [address], [address] [place] [address] PCP - General Internal Medicine 01/16/21 Kory Vogt MD [address] [address] Gastroenterology 10/07/21 Harris Lennon MD [address] [place] [address], [address] [place] [address] Insurance Assigned Provider 12/17/23 Margarita Davidson, RN [address] [place] [address], [address] [place] [address] [email or web address] iCMP Soft Tile SetterHomogenizer Operator 07/01/22 02/17/25 Jyoti Aviles, OT [address] [place] [address] Transitions Soft Tile SetterBatch Maker Therapy 12/12/2312/14/23 documented as of this encounter Additional Source Comments The information contained in this document represents components of the legal health record. It is not the complete legal health record.[facility]
--- OUTSIDE RECORDS SUMMARY | 2025-05-21 12:56 | XMS_ITS | Encounter Summary ---
Author Organization [facility] Address [address] [place] [address] Phone Care Team Providers Care Gang Drill Operator Name Role Phone Harris Lennon MD Primary Care Provider [phone] Kory Vogt MD Unavailable Xuan Ferraro DO Unavailable [phone] Harris Lennon MD Unavailable [phone] Margarita Davidson RN Unavailable [email or web address] Margarita Davidson RN Unavailable [email or web address] Jyoti Aviles OT Unavailable [phone] Reason for Referral * MRI/CAT Scan - Closed Specialty Diagnoses / Procedures Referred By Contac t Referred To Contact Radiology Diagnoses RLQ abdominal pain Procedures CT Abdomen/Pelvis Margarita Hart NP Phone: tel: fax: Referral ID Status Reason Start Date Expiration Date Visits Re quested Visits Authorized [id number] Closed 11/26/2021 11/26/2022 1 1 Encounter Details Date Type Department Care Team (Latest Contact Info) Description 11/26/2021 Transcribe Orders Virtual Department 30 [place], [place] [phone] Margarita Hart NP [address] [place] [address] RLQ abdominal pain (Primary Dx) Social History Tobacco Use Types [...] Description 04/08/2025 Procedure Pass Echo Lab [address] [place] [address] 07/30/2025 10:45 AM EST Office Visit [facility] [place] [facility] [address] [place] [address] [place] [address] Harris Lennon MD [address] [place] [address], [address] [place] [address] 09/09/2025 11:15 AM EST Appointment Echo Lab [address] [place] [address] Stacie Gruber PA-C [address] [place] [address] 09/27/2025 10:40 AM EST Office Visit [facility] [address] [place] [address] 3rd Floor, [address] [place] [address] Davidson Gunter MD [address] [place] [address], [address] [place] [address] 02/14/2026 10:10 AM EDT Office Visit [facility] [address] [place] [address] [place] [address] Talon Seth, DO [address] [place] [address] [email or web address] documented as of this encounter Results * CT ABDOMEN/PELVIS WITH CONTRAST (01/08/2022 12:52 PM EDT) Anatomical Region Laterality Modality Abdomen, Pelvis Computed Tomogra phy 01/08/2022 4:57 PM EDT Impressions 01/08/2022 5:10 PM EDT 1. No evidence of appendicitis nor other explanation of right lower quadrant pain. 2. Seemingly stable chronic aortic dissection. 3. Stable cholelithiasis without signs of cholecystitis or biliary obstruction. 4. Stable 5 mm non-obstructing stone mid left kidney. 5. Equivocal evidence of cystitis. POS - [id number] Narrative 01/08/2022 5:10 PM EDT Oral and IV contrast. Compare 05/11/2021. FINDINGS: I cannot clearly identify the appendix though the cecal tip is fairly well-visualized; it may have been removed at the time of hysterectomy but in either event there is no evidence of appendicitis currently. No diverticular disease or signs of inflammatory bowel disease. No bowel mass or obstruction. 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 Both the true and false lumens opacify. No significant aneurysmal dilatation. Chronic gallstones similar to previous. No gallbladder wall thickening, hyperemia or pericholecystic fluid. No biliary dilatation or calcified choledocholithiasis. Tiny chronic cyst in the posterior spleen. No splenomegaly or solid masses. Pancreas and adrenals unremarkable. Chronic 3.4 cm simple cyst upper pole right kidney. No complicated cysts or solid renal masses. 5 mm non-obstructing stone mid left kidney unchanged from 05/11/2021. No new intrarenal or ureteral stones. No hydronephrosis or signs of pyelonephritis. The bladder wall is slightly thickened and enhancing suggesting cystitis. This is a change from 05/11/2021 though not as striking finding. Hysterectomy. Neither ovary is identified. No adenopathy or ascites. No hernia. Lung bases and pleural spaces clear. Extensive degenerative and post-operative changes in the lumbosacral spine and prior right SI fusion. No acute bony abnormalities or signs of skeletal metastatic disease. Procedure Note Romario Garcia MD - 01/08/2022 Oral and IV contrast. Compare 05/11/2021. FINDINGS: I cannot clearly identify the appendix though the cecal tip is fairlywell- visualized; it may have been removed at the time of hysterectomy butin either event there is no evidence of appendicitis currently. No diverticular disease or signs of inflammatory bowel disease. No bowelmass or obstruction. The patient has a known chronic dissection of the abdominal aortaextending into the left common iliac artery; this is unchanged. Both thetrue and false lumens opacify. No significant aneurysmal dilatation. Chronic gallstones similar to previous. No gallbladder wall thickening,hyperemia or pericholecystic fluid. No biliary dilatation or calcifiedcholedocholithiasis. Tiny chronic cyst in the posterior spleen. No splenomegaly or solidmasses. Pancreas and adrenals unremarkable. Chronic 3.4 cm simple cyst upper pole right kidney. No complicated cystsor solid renal masses. 5 mm non-obstructing stone mid left kidneyunchanged from 05/11/2021. No new intrarenal or ureteral stones. Nohydronephrosis or signs of pyelonephritis. The bladder wall is slightly thickened and enhancing suggesting cystitis.This is a change from 05/11/2021 though not as striking finding. Hysterectomy. Neither ovary is identified. No adenopathy or ascites. No hernia. Lung bases and pleural spaces clear. Extensive degenerative and post-operative changes in the lumbosacral spineand prior right SI fusion. No acute bony abnormalities or signs ofskeletal metastatic disease. IMPRESSION: 1. No evidence of appendicitis nor other explanation of right lowerquadrant pain. 2. Seemingly stable chronic aortic dissection. 3. Stable cholelithiasis without signs of cholecystitis or biliaryobstruction. 4. Stable 5 mm non-obstructing stone mid left kidney. 5. Equivocal evidence of cystitis. POS - [id number] Margarita Hart DRYING MACHINE RECEIVER IMG CT ABD/PELVIS Final R esult documented in this encounter Visit Diagnoses Diagnosis RLQ abdominal pain- Primary Abdominal pain, right lower quadrant RLQ abdominal pain Abdominal pain, right lower quadrant documented in this encounter Additional Health Concerns Infection Onset Date Last Indicated Resolved Time CoV-Risk 08/21/2022 08/21/2022 09/01/2022 1:23 AM EST CoV-Risk 11/16/2023 11/16/2023 11/27/2023 1:21 AM EDT Assessment Noted Time PHQ-9 Depression Total Score: 15 018 2:17 PM EST PHQ-2 Depression Total Score: 0 10/07/19 22 2:55 PM EST documented as of this encounter Care Teams Gang Drill Operator Relationship Specialty Start Date End Date Harris Lennon MD [address] [place] [address], [address] [place] [address] [email or web address] PCP - General Internal Medicine 01/16/21 Kory Vogt MD [address] [address] [email or web address] Gastroenterology 10/07/21 Xuan Ferraro DO [address] [place] [address] [email or web address] Insurance Assigned Provider 06/09/19 12/19/21 Harris Lennon MD [address] [place] [address], [address] [place] [address] [email or web address] Insurance Assigned Provider 12/17/23 Margarita Davidson, MARIZOL [address] [place] [address], [address] [place] [address] [email or web address] iCMP Fitter [employer] Turner 06/02/22 06/29/22 Margarita Davidson, RN [address] [facility], [address] [place] [address] [email or web address] iCMP Fitter And TurnerElectrician Substation Supervisor 07/01/22 02/17/25 Jyoti Aviles, OT [address] [place] [address] [email or web address] Transitions Fitter And TurnerNascar Driver Therapy 12/12/2312/14/23 documented as of this encounter Additional Source Comments The information contained in this document represents components of the legal health record. It is not the complete legal health record.[facility]
--- OUTSIDE RECORDS SUMMARY | 2025-05-21 12:56 | XMS_ITS | Encounter Summary ---
Author Organization [facility] Address [address] [place] [address] Phone Care Team Providers Care Health Researcher Name Role Phone Harris Lennon MD Primary Care Provider [phone] Kory Vogt MD Unavailable Harris Lennon MD Unavailable [phone] Margarita Davidson RN Unavailable [email or web address] Jyoti Aviles OT Unavailable [phone] Encounter Details Date Type Department Care Team (Late st Contact Info) Description 02/08/2023 Procedure Pass Echo Lab [address] [place] [address] Social History Tobacco Use Types Packs/Day Years [...] Info) Description 04/08/2025 Procedure Pass Echo Lab [address] [place] [address] 07/30/2025 10:45 AM EST Office Visit [facility] [place] [facility] [address] [place] [address] [place] [address] Harris Lennon MD [address] [place] [address], [address] [place] [address] 09/09/2025 11:15 AM EST Appointment Echo Lab [address] [place] [address] Stacie Gruber PA-C [address] [place] [address] 09/27/2025 10:40 AM EST Office Visit [facility] [address] [place] [address] Dr 3rd Floor, [address] [place] [address] Davidson Gunter MD [address] [place] [address], [address] [place] [address] 02/14/2026 10:10 AM EDT Office Visit [facility] [address] [place] [address] [place] [address] Talon Seth DO [address] [place] [address] documented as of this encounter Visit Diagnoses Not on filedocumented in this encounter Additional Health Concerns Infection Onset Date Last Indicated Resolved Time CoV-Risk 11/16/2023 11/16/2023 11/27/2023 1:21 AM EDT Assessment Noted Time PHQ-9 Depression Total Score: 15 018 2:17 PM EST PHQ-2 Depression Total Score: 0 06/22/20 23 1:25 PM EDT documented as of this encounter Care Teams Health Researcher Relationship Specialty Start Date End Date Harris Lennon MD [address] [place] [address], [address] [place] [address] PCP - General Internal Medicine 01/16/21 Kory Vogt MD [address] [address] Gastroenterology 10/07/21 Harris Lennon MD [address] [place] [address], [address] [place] [address] Insurance Assigned Provider 12/17/23 Margarita Davidson, RN [address] [place] [address], [address] [place] [address] [email or web address] iCMP Electronic Assembler Group LeaderAcademic Interventionist 07/01/22 02/17/25 Jyoti Aviles, OT [address] [place] [address] Transitions Electronic Assembler Group LeaderFishing Gear Mechanic Therapy 12/12/2312/14/23 documented as of this encounter Additional Source Comments The information contained in this document represents components of the legal health record. It is not the complete legal health record.[facility]
--- OUTSIDE RECORDS SUMMARY | 2025-05-21 12:56 | XMS_ITS | Encounter Summary ---
Author Organization [facility] Address [address] [place] [address] Phone Care Team Providers Care Region Manager Name Role Phone Xuan Ferraro DO Unavailable [phone] Harris Lennon MD Primary Care Provider [phone] Kory Vogt MD Unavailable Xuan Ferraro DO Unavailable [phone] Harris Lennon MD Unavailable [phone] Margarita Davidson RN Unavailable [email or web address] Margarita Davidson RN Unavailable [email or web address] Jyoti Aviles OT Unavailable [phone] Encounter Details Date Type Department Care Team (Late st Contact Info) Description 05/20/2021 Procedure Pass [facility], Ct Scan - [address] [address] Social History Tobacco Use Types Packs/Day Years [...] 11:28 AM EDT Chloe Robles RN * [place] Suicide Severity Rating Scale (Screener/Recent Self-Report) Question [...] Info) Description 04/08/2025 Procedure Pass [facility] [address] [place] [address] 07/30/2025 10:45 AM EST Office Visit [facility] [address] [place] [address] [place] [address] Harris Lennon MD [address] [place] [address], [address] [place] [address] 09/09/2025 11:15 AM EST Appointment Echo Lab [address] [place] [address] Stacie Gruber PA-C [address] [place] [address] 09/27/2025 10:40 AM EST Office Visit [facility] [address] [place] [address] 3rd Floor, [address] [place] [address] Davidson Gunter MD [address] [place] [address], [address] [place] [address] 02/14/2026 10:10 AM EDT Office Visit [facility] [place] [address] [place] [address] [email or web address] documented as of this encounter Visit Diagnoses [...] documented as of this encounter Care Teams Region Manager Relationship Specialty Start Date End Date Harris Lennon MD [address] [place] [address] [address] [place] [address] [email or web address] PCP - General Internal Medicine 01/16/21 Xuan Ferraro DO [address] [place] [address] [email or web address] Insurance Assigned Provider 06/09/19 10/06/21 Kory Vogt MD [address] [place] [address] [email or web address] Gastroenterology 10/07/21 Xuan Ferraro DO [address] [place] [address] [email or web address] Insurance Assigned Provider 06/09/19 12/19/21 Harris Lennon MD [address] [place], [place] [address] [place] [address] [email or web address] Insurance Assigned Provider 12/17/23 Margarita Davidson RN [address] [facility], [address] [place] [address] iCMP Curb And Gutter Laborer 06/02/22 06/29/22 Margarita Davidson RN [address] [place] [address], [address] [place] [address] [email or web address] iCMP Curb And Gutter LaborerSub Arc Operator 07/01/22 02/17/25 Jyoti Aviles, OT [address] [place] [address] [email or web address] Transitions Curb And Gutter LaborerChef De Partie Therapy 12/12/2312/14/23 documented as of this encounter Additional Source Comments The information contained in this document represents components of the legal health record. It is not the complete legal health record.[facility]
--- OUTSIDE RECORDS SUMMARY | 2025-05-21 12:56 | XMS_ITS | Encounter Summary ---
Author Organization [facility] Address [address] [place] [address] Phone Care Team Providers Care Polisher Sand Name Role Phone Harris Lennon MD Primary Care Provider [phone] Kory Vogt MD Unavailable Harris Lennon MD Unavailable [phone] Margarita Davidson RN Unavailable [email or web address] Jyoti Aviles OT Unavailable [phone] Encounter Details Date Type Department Care Team (Late st Contact Info) Description 12/09/2023 Procedure Pass [facility], [address] [address] Social History Tobacco Use Types Packs/Day Years [...] Date of Assessment Author No Risk Indicated 12/09/2023 9:00 PM EDT Bethany Camejo, MARIZOL * [place] Suicide Severity Rating Scale (Screener/Recent Self-Report) Question Answer Date of Assessment Author 1. Wish to be (Past 1 Month) No 12/09/2023 9:00 PM EDT Barb Camejo RN 2. Non-Specific Active Suici reese Thoughts (Past 1 Month) No 12/09/2023 9:00 PM EDT Moi Camejo RN 6. Suicidal Behavior (Lifetime) No 9:00 PM EDT Bethany Camejo RN documented as of this encounter Plan of Treatment Upcoming Encounters Date Type Department Care Team (Late st Contact Info) Description 04/08/2025 Procedure Pass Echo Lab [address] [place] [address] 07/30/2025 10:45 AM EST Office Visit [facility] Medicine [address] [place] [address] Harris Lennon MD [address] [place] [address], [address] [place] [address] 09/09/2025 11:15 AM EST Appointment Echo Lab [address] [place] [address] Stacie Gruber PA-C [address] [place] [address] 09/27/2025 10:40 AM EST Office Visit [facility] [address] [place] [address] 3rd Floor, [address] [place] [address] Davidson Gunter MD [address] [place] [address], [address] [place] [address] 02/14/2026 10:10 AM EDT Office Visit [facility] [address] [place] [address] Talon Seth DO [address] [place] [address] documented as of this encounter Visit Diagnoses Not on filedocumented in this encounter Additional Health Concerns Assessment Noted Time PHQ-9 Depression Total Score: 15 018 2:17 PM EST PHQ-2 Depression Total Score: 0 06/22/20 23 1:25 PM EDT documented as of this encounter Care Teams Polisher Sand Relationship Specialty Start Date End Date Harris Lennon MD [address] [place] [address], [address] [place] [address] PCP - General Internal Medicine 01/16/21 Kory Vogt MD [address] [place] [address] Gastroenterology 10/07/21 Harris Lennon MD [address] [place] [address], [address] [place] [address] Insurance Assigned Provider 12/17/23 Margarita Davidson RN [address] [place] [address], [address] [place] [address] [email or web address] iCMP Sheep HerderHandicapper Harness Racing 07/01/22 02/17/25 Jyoti Aviles, OT [address] [place] [address] [email or web address] Transitions Sheep HerderWind Projects Supervisor Therapy 12/12/2312/14/23 documented as of this encounter Additional Source Comments The information contained in this document represents components of the legal health record. It is not the complete legal health record.[facility]
--- OUTSIDE RECORDS SUMMARY | 2025-05-21 12:56 | XMS_ITS | Encounter Summary ---
Author Organization [facility] Address [address] [place] [address] Phone Care Team Providers Care Dynamite Shooter Name Role Phone Harris Lennon MD Primary Care Provider [phone] Kory Vogt MD Unavailable Harris Lennon MD Unavailable [phone] Margarita Davidson RN Unavailable [email or web address] Jyoti Aviles OT Unavailable [phone] Encounter Details Date Type Department Care Team (Latest Contact Info) Description 08/08/2023 Transcribe Orders Virtual Department [address] [place], [place] [id number] Harris Lennon MD [address] [facility], [address] [place] [address] [email or web address] Breast screening (Primary Dx) Social History Tobacco Use Types Packs/Day Years Used Date Smoking Tobacco: Former Cigarettes Q uit: 1971 Smokeless Tobacco: Former Quit: 1968 Alcohol Use [...] Info) Description 04/08/2025 Procedure Pass Echo Lab [address] [place] [id number] 07/30/2025 10:45 AM EST Office Visit [facility] [address] [place] [address] [place] [id number] Harris Lennon MD [address] [place] [address], [address] [place] [address] 09/09/2025 11:15 AM EST Appointment Echo Lab [address] [place] [id number] Stacie Gruber PA-C [address] [place] [address] 09/27/2025 10:40 AM EST Office Visit [facility] [address] [place] [address] 3rd Floor, [address] [place] [address] Davidson Gunter MD [address] [place] [address], [address] [place] [address] 02/14/2026 10:10 AM EDT Office Visit [facility] [address] [place] [address] [place] [id number] Talon Seth DO [address] [place] [address] documented as of this encounter Results * BI MAMMOGRAM SCREENING WITH TOMOSYNTHESIS WITH CAD (BILATERAL) (10/28/2023 11:17 AM EST) Anatomical Region Laterality Modality Breast Left, Breast Right, Breast Bilateral Bila teral Mammography 10/29/2023 9:45 PM EST Impressions 10/30/2023 2:34 PM EST No mammographic signs of malignancy. Annual screening is recommended. BI-RADS CATEGORY: 2 - Benign finding. DENSITY: There are scattered fibroglandular densities. Narrative 10/30/2023 2:34 PM EST Bilateral mammography is performed in conjunction with computed aided detection. 3-D tomography along with 2-D C view imaging was also performed. Comparison made to previous dated as far back as 05/09/2017 and as recent as 10/27/2022. No suspicious masses, areas of architectural distortion or suspicious microcalcifications. There are bilateral vascular calcifications. Procedure Note Javier Shane MD - 10/30/2023 Bilateral mammography is performed in conjunction with computed aideddetection. 3-D tomography along with 2-D C view imaging was alsoperformed. Comparison made to previous dated as far back as 05/09/2017 andas recent as 10/27/2022. No suspicious masses, areas of architectural distortion or suspiciousmicrocalcifications. There are bilateral vascular calcifications. IMPRESSION: No mammographic signs of malignancy. Annual screening is recommended. BI-RADS CATEGORY: 2 - Benign finding. DENSITY: [...] documented as of this encounter Care Teams Dynamite Shooter Relationship Specialty Start Date End Date Harris Lennon MD [address] [place] [address], [address] [place] [address] PCP - General Internal Medicine 01/16/21 Kory Vogt MD [address] [place] [address] Gastroenterology 10/07/21 Harris Lennon MD [address] [place] [address], [address] [place] [address] Insurance Assigned Provider 12/17/23 Margarita Davidson, RN [address] [place] [address], [address] [place] [address] iCMP Linux ConsultantCar Scrubber 07/01/22 02/17/25 Jyoti Aviles, OT [address] [place] [address] Transitions Linux ConsultantTeaching Young Therapy 12/12/2312/14/23 documented as of this encounter Additional Source Comments The information contained in this document represents components of the legal health record. It is not the complete legal health record.[facility]
== END 2025-05-21 11:09 | disposition home or self-care (01) ==
LOC: HO.ACS 10:46
PROVIDERS: PCP Internal Medicine; Visit Provider Internal Medicine Medical Oncology
DX: Z79.01 Long term (current) use of anticoagulants (principal)

== ENCOUNTER → 2025-05-21 10:46 | Outpatient (BNVA) | payer MEDICARE, SELFPAY | PROVIDERS: PCP Internal Medicine; Visit Provider Internal Medicine Medical Oncology | DX: Z51.81 Encounter for therapeutic drug level monitoring (principal); Z79.01 Long term (current) use of anticoagulants | CPT/HCPCS: 85610; 99211 ==

== ENCOUNTER 2025-06-12 12:58 | Outpatient (AMB) | payer MEDICARE, SELFPAY ==
--- OUTSIDE RECORDS SUMMARY | 2022-08-21 13:20 | XMS_ITS | Encounter Summary ---
Author Organization [facility] Address [address] [place] [address] Phone Care Team Providers Care Material Crew Supervisor Name Role Phone Harris Lennon MD Primary Care Provider +1- [phone] Kory Vogt MD Unavailable Margarita Davidson RN Unavailable [email or web address] Encounter Details Date Type Department Care Team (Late st Contact Info) Description 08/21/2022 12:20 PM [facility] Hospital Encounter [facility] [address] [place] [address] [phone] Juliana Troy, [address], [facility] [address] [place] [address] [email or web address] Social History Tobacco Use Types Packs/Day Years [...] 9:27 AM EDT Shilo Miller RN * [place] Suicide Severity Rating Scale (Screener/Recent Self-Report) Question [...] Info) Description 04/08/2025 Procedure Pass Echo Lab [address] [place] [address] 07/30/2025 10:45 AM EST Office Visit [address] [place] [address] Harris Lennon MD 22 [facility], [address] [place] [address] 09/09/2025 11:15 AM EST Appointment [facility] [place] [place] [address] Stacie Gruber PA-C [address] [place] [address] 09/27/2025 10:40 AM EST Office Visit [facility] [address] [place] [address] 3rd Floor, [address] [place] [address] Davidson Gunter MD [address] [place] [address], [address] [place] [address] 02/14/2026 10:10 AM EDT Office Visit [facility] [address] [place] [address] [place] [address] Talon Seth DO [address] [place] [address] documented as of this encounter Procedures Procedure [...] report originally createdby Selena Franklin. Juliana Troy [facility] IM XR CHEST Final Result documented in [...] documented as of this encounter Care Teams Material Crew Supervisor Relationship Specialty Start Date End Date Harris Lennon MD [address] [place] [address], [address] [place] [address] [email or web address] PCP - General Internal Medicine 01/16/21 Kory Vogt MD [address] [place] [address] [email or web address] Gastroenterology 10/07/21 Margarita Davidson RN [address] [place] [phone] [email or web address] Print Graphic DesignerSaddle Stitch Operator 07/01/22 documented as of this encounter Additional Source Comments The information contained in this document represents components of the legal health record. It is not the complete legal health record.[facility]
--- NOTE | 2025-06-12 13:09 | MHC.OFFVISCO ---
Intake Intake Visit Reasons: Anticoagulation Allergies memantine Allergy (Severe, Verified 06/12/25 13:04) RAGE nitrofurantoin Allergy (Intermediate, Verified 06/12/25 13:04) RASH oseltamivir (From Tamiflu) Allergy (Intermediate, Verified 06/12/25 13:04) RASH oxycodone (From PERCOCET) Allergy (Unknown, Verified 06/12/25 13:04) UNKNOWN Penicillins (PENICILLINS) Allergy (Unknown, Verified 06/12/25 13:04) UNKNOWN Sulfa (Sulfonamide Antibiotics) (SULFA (SULFONAMIDE ANTIBIOTICS)) Allergy (Unknown, Verified 06/12/25 13:04) UNKNOWN Medication List - Last Reconciled 06/12/25 by Petra Petersen RN acetaminophen (Tylenol Extra Strength) 1,000 mg (2 x 500 mg) PO QID PRN albuterol sulfate 90 mcg/actuation 2 puffs inhalation Q4-6H PRN alendronate 70 mg PO QWEEK ascorbic acid (vitamin C) (Vitamin C) 500 mg PO TID azithromycin 500 mg PO ONCE PRN biotin 5,000 mcg PO DAILY calcium carbonate-vitamin D3 600 mg-12.5 mcg (500 unit) (Calcium with Vit D3) calcium 1200, vit d 25mcg cetirizine 10 mg PO DAILY PRN Held on 12/29/23. Instructions: Doctor's Order cholecalciferol (vitamin D3) 250 McG DAILY PO; clotrimazole-betamethasone 1-0.05 % 1 appl topical BID Held on 12/29/23. Instructions: Doctor's Order cranberry fruit concentrate (Azo Cranberry) PO BID docusate sodium 100 mg PO BID estradiol 0.01%(0.1mg/gram) grams vaginal 2XW ezetimibe 10 mg PO DAILY Held on 12/29/23. Instructions: Doctor's Order fluticasone propion-salmeterol 500-50 mcg/dose (Advair Diskus) 1 inh inhalation BID inhalational spacing device ([facility] spacer) As directed losartan 25 mg PO DAILY magnesium oxide 500 mg PO DAILY mecobalamin (vitamin B12) mcg PO DAILY methenamine hippurate 1 g PO BID metoprolol succinate ER 75 mg PO DAILY mirtazapine 7.5 mg PO BEDTIME efyovzos-inb-sblk-FA-vit K-lut (Multivitamin Women 50 Plus) PO psyllium husk (Metamucil) 0.4 grams PO DAILY Saccharomyces boulardii (Daily Probiotic (S. boulardii)) PO simethicone (Gas Relief (simethicone)) PO topiramate 50 mg PO DAILY Held on 12/29/23. Instructions: Doctor's Order vibegron (Gemtesa) 75 mg PO DAILY warfarin See Protocol 7.5mg x2days/ 5mg x5days; Nursing Note INR: 2.4- in therapeutic range 2-3 Medications and supplements reviewed- no changes No changes in health, diet, medications, or supplements, Denies any signs and symptoms of bleeding or bruising or clotting. Bleeding, bruising, clotting discussed Nutritional guidance given Dose: 5mg x 3, 2.5mg x 4 F/U INR: pt req 4 weeks Patient verbalizes understanding of instructions given] pt received covid and flu vaccines approx 3 weeks ago per pt spouse pt to acs amb with cane acompanied by spouse Coding Level of Care Code Est Patient Level 1 Diagnoses Current use of anticoagulant therapy Z79.01 Results AMB INR Fingerstick AMB INR Fingerstick 2.4 Last Edit by Petra Petersen RN on 06/12/25 13:11 interface delay Assessment & Plan Assessment & Plan (1) Current use of anticoagulant therapy: Code(s): Z79.01 - [facility] (current) use of anticoagulants Category: Medical
[2025-06-12 13:10] LABS: Prothrombin Time Whole Bld POC 28.3 sec (11.1-13.5); ~PT, ~INR - Anti Coag Clinic 2.4 (0.9-1.1)
--- OUTSIDE RECORDS SUMMARY | 2025-06-12 14:14 | XMS_ITS | Encounter Summary ---
Author Organization [facility] Address [address] [place] [address] Phone Care Team Providers Care Bagger And Stock Handler Helper Name Role Phone Harris Lennon MD Primary Care Provider [phone] Kory Vogt MD Unavailable Harris Lennon MD Unavailable [phone] Margarita Davidson RN Unavailable [email or web address] Jyoti Aviles OT Unavailable [phone] Encounter Details Date Type Department Care Team (Late st Contact Info) Description 08/02/2022 Procedure Pass [address] [address] Social History Tobacco Use Types Packs/Day Years [...] Info) Description 04/08/2025 Procedure Pass Echo Lab [address] [place] [address] 07/30/2025 10:45 AM EST Office Visit [facility] [address] [place] [address] [place] [address] Harris Lennon MD [address] [place] [address], [address] [place] [address] 09/09/2025 11:15 AM EST Appointment Echo Lab [address] [place] [address] Stacie Gruber PA-C [address] [place] [address] 09/27/2025 10:40 AM EST Office Visit [facility] [address] [place] [address] 3rd Floor, [address] [place] [address] Davidson Gunter MD [address] [place] [address], [address] [place] [address] 02/14/2026 10:10 AM EDT Office Visit [facility] [address] [place] [address] [place] [address] Talon Seth DO [address] [place] [address] documented as of this encounter Visit Diagnoses [...] documented as of this encounter Care Teams Bagger And Stock Handler Helper Relationship Specialty Start Date End Date Harris Lennon MD [address] [place] [address], [address] [place] [address] PCP - General Internal Medicine 01/16/21 Kory Vogt MD [address] [place] [address] Gastroenterology 10/07/21 Harris Lennon MD [address] [place] [address], [address] [place] [address] Insurance Assigned Provider 12/17/23 Margarita Davidson RN [address] [place] [address], [address] [place] [address] [email or web address] iCMP Loan OfficerGamma Ray Operator 07/01/22 02/17/25 Jyoti Aviles, OT [address] [place] [address] [email or web address] Transitions Loan OfficerCivil Engineering Professor Therapy 12/12/2312/14/23 documented as of this encounter Additional Source Comments The information contained in this document represents components of the legal health record. It is not the complete legal health record.[facility]
--- OUTSIDE RECORDS SUMMARY | 2025-06-12 14:14 | XMS_ITS | Encounter Summary ---
Author Organization [facility] Address [address] [place] [address] Phone Care Team Providers Care Pin Machine Tender Name Role Phone Xuan Ferraro DO Primary Care Provider + [phone] Damien Lance MD Unavailable Xuan Ferraro DO Unavailable [phone] Harris Lennon MD Primary Care Provider + [phone] Kory Vogt MD Unavailable Xuan Ferraro DO Unavailable [phone] Harris Lennon MD Unavailable [phone] Margarita Davidson RN Unavailable [email or web address] Margarita Davidson RN Unavailable [email or web address] Jyoti Aviles OT Unavailable [phone] Encounter Details Date Type Department Care Team (Late st Contact Info) Description 02/13/2019 Ancillary Orders [facility] [address] [place] [address] Xuan Ferraro DO [address] [place] [address] [email or web address] Breast screening Social History Tobacco Use Types [...] Info) Description 04/08/2025 Procedure Pass [facility] Lab [address] [place] [address] 07/30/2025 10:45 AM EST Office Visit [facility] [address] [place] [address] [place] [address] Harris Lennon MD [address] [place] [address], [address] [place] [address] 09/09/2025 11:15 AM EST Appointment Echo Lab [address] [place] [address] Stacie Gruber PA-C [address] [place] [address] 09/27/2025 10:40 AM EST Office Visit [facility] [address] [place] [address] 3rd Floor, [address] [place] [address] Davidson Gunter MD [address] [place] [address], [address] [place] [address] 02/14/2026 10:10 AM EDT Office Visit [facility] [address] [place] [address] [place] [address] Talon Seth DO [address] [place] [address] documented as of this encounter Results * [...] There are scattered fibroglandular densities. POS - [id number] Narrative 05/15/2019 1:58 PM EDT Full-field digital [...] There are scattered fibroglandular densities. POS - [id number] us Xuan Ferraro DO IMG MG EXAMS [...] documented as of this encounter Care Teams Pin Machine Tender Relationship Specialty Start Date End Date Xuan Ferraro DO [address] [place] [address] [email or web address] PCP - General 09/15/18 01/15/21 Harris Lennon MD 22 [facility], [address] [place] [address] PCP - General Internal Medicine 01/16/21 Damien Lance MD 22 [facility] Floor 1 [place] [address] [email or web address] Insurance Assigned Provider 07/16/17 06/09/19 Xuan Ferraro DO [address] [place] [address] [email or web address] Insurance Assigned Provider 06/09/19 10/06/21 Kory Vogt MD [address] [place] [address] [email or web address] Gastroenterology 10/07/21 Xuan Ferraro DO [address] [place] [address] [email or web address] Insurance Assigned Provider 06/09/19 12/19/21 Harris Lennon MD [address] [place] [address], [address] [place] [address] [email or web address] Insurance Assigned Provider 12/17/23 Margarita Davidson RN [address] [place] [address], [address] [place] [address] [email or web address] iCMP Line Dancer 06/02/22 06/29/22 Margarita Davidson RN [address] [place] [address], [address] [place] [address] [email or web address] iCMP Line DancerFlatwork Finisher 07/01/22 02/17/25 Jyoti Aviles, OT [address] [place] [address] [email or web address] Transitions Line DancerScrewhead Polisher Therapy 12/12/2312/14/23 documented as of this encounter Additional Source Comments The information contained in this document represents components of the legal health record. It is not the complete legal health record.[facility]
--- OUTSIDE RECORDS SUMMARY | 2025-06-12 14:14 | XMS_ITS | Encounter Summary ---
Author Organization [facility] Address [address] [place] [address] Phone Care Team Providers Care Sales Assoc Name Role Phone Xuan Ferraro DO Primary Care Provider Xuan Ferraro DO Unavailable Harris Lennon MD Primary Care Provider Kory Vogt MD Unavailable Xuan Ferraro DO Unavailable Harris Lennon MD Unavailable [phone] Margarita Davidson RN Unavailable [email or web address] Margarita Davidson RN Unavailable [email or web address] Jyoti Aviles OT Unavailable [phone] Encounter Details Date Type Department Care Team (Late st Contact Info) Description 11/08/2019 Ancillary Orders Non-Invasive Cardiology [address] [place] [address] Xuan Ferraro DO [address] [place] [address] [email or web address] Other chest pain Social History Tobacco Use [...] Info) Description 04/08/2025 Procedure Pass Echo Lab [address] [place] [address] 07/30/2025 10:45 AM EST Office Visit [facility] [address] [place] [address] [place] [address] Harris Lennon MD [address] [place] [address], [address] [place] [address] 09/09/2025 11:15 AM EST Appointment Echo Lab [address] [place] [address] Stacie Gruber PA-C [address] [place] [address] 09/27/2025 10:40 AM EST Office Visit [facility] [address] [place] [address] 3rd Floor, [address] [place] [address] Davidson Gunter MD [address] [place] [address], [address] [place] [address] 02/14/2026 10:10 AM EDT Office Visit [facility] [address] [place] [address] [place] [address] Talon Seth DO [address] [place] [address] documented as of this encounter Results * NC Stress Result for Nuclear Stress Test (11/08/2019 10:14 AM EST) Max BP Systolic 158 mmHg [facility] Max BP Diastolic 70 mmHg [facility] Max HR 123 BPM [facility] Resting HR 78 BPM [facility] Resting BP Systolic 150 mmHg [facility] Resting BP Diastolic 72 mmHg [facility] Peak METS 2.3 METS [facility] Peak HR 118 BPM [facility] Peak BP Systolic 136 mmHg [facility] Peak BP Diastolic 76 mmHg [facility] Anatomical Region Laterality Modality Heart Other 11/08/2019 [...] predicted heart rate. Rate pressure product was [address]. REPORT: Patient exercised for 4:00 minutes on [...] documented as of this encounter Care Teams Sales Assoc Relationship Specialty Start Date End Date Xuan Ferraro DO [address] [place] [address] [email or web address] PCP - General 09/15/18 01/15/21 Harris Lennon MD [address] [place], [place] [address] [place] [address] PCP - General Internal Medicine 01/16/21 Xuan Ferraro DO [address] [place] [address] [email or web address] Insurance Assigned Provider 06/09/19 10/06/21 Kory Vogt MD [address] [place] [address] Gastroenterology 10/07/21 Xuan Ferraro DO [address] [place] [address] [email or web address] Insurance Assigned Provider 06/09/19 12/19/21 Harris Lennon MD [address] [place], [place] [address] [place] [address] [email or web address] Insurance Assigned Provider 12/17/23 Margarita Davidson RN [address] [place] [address], [address] [place] [address] [email or web address] iCMP Photo Equipment Technician 06/02/22 06/29/22 Margarita Davidson RN [address] [place] [address], [address] [place] [address] [email or web address] iCMP Photo Equipment TechnicianVp Client Services 07/01/22 02/17/25 Jyoti Aviles, OT [address] [place] [address] [email or web address] Transitions Photo Equipment TechnicianAircraft Engine Dismantler Therapy 12/12/2312/14/23 documented as of this encounter Additional Source Comments The information contained in this document represents components of the legal health record. It is not the complete legal health record.[facility]
--- OUTSIDE RECORDS SUMMARY | 2025-06-12 14:14 | XMS_ITS | Encounter Summary ---
Author Organization [facility] Address [address] [place] [address] Phone Care Team Providers Care Lithographic Photographer Apprentice Name Role Phone Xuan Ferraro DO Primary Care Provider + [phone] Xuan Ferraro DO Unavailable [phone] Harris Lennon MD Primary Care Provider Kory Vogt MD Unavailable Xuan Ferraro DO Unavailable [phone] Harris Lennon MD Unavailable [phone] Margarita Davidson RN Unavailable [email or web address] Margarita Davidson RN Unavailable [email or web address] Jyoti Aviles OT Unavailable [phone] Encounter Details Date Type Department Care Team (Late st Contact Info) Description 09/07/2019 Procedure Pass [facility] Admitting Dept Virtual Department [address] [place] [address] Social History Tobacco Use Types Packs/Day Years [...] Info) Description 04/08/2025 Procedure Pass Echo Lab [address] [place] [address] 07/30/2025 10:45 AM EST Office Visit [facility] [address] [place] [address] [place] [address] Harris Lennon MD [address] [place] [address], [address] [place] [address] 09/09/2025 11:15 AM EST Appointment Echo Lab [address] [place] [address] Stacie Gruber PA-C [address] [place] [address] 09/27/2025 10:40 AM EST Office Visit [facility] [address] [place] [address] 3rd Floor, [address] [place] [address] Davidson Gunter MD [address] [place] [address], [address] [address] 02/14/2026 10:10 AM EDT Office Visit [facility] [address] [place] [address] [place] [address] Talon Seth DO [address] [place] [address] documented as of this encounter Visit Diagnoses [...] documented as of this encounter Care Teams Lithographic Photographer Apprentice Relationship Specialty Start Date End Date Xuan Ferraro DO [address] [place] [address] [email or web address] PCP - General 09/15/18 01/15/21 Harris Lennon MD [address] [place] [address], [address] [place] [address] [email or web address] PCP - General Internal Medicine 01/16/21 Xuan Ferraro DO [address] [place] [address] [email or web address] Insurance Assigned Provider 06/09/19 10/06/21 Kory Vogt MD [address] [place] [address] [email or web address] Gastroenterology 10/07/21 Xuan Ferraro DO [address] [place] [address] [email or web address] Insurance Assigned Provider 06/09/19 12/19/21 Harris Lennon MD [address] [place] [address], [address] [place] [address] [email or web address] Insurance Assigned Provider 12/17/23 Margarita Davidson RN [address] [place] [address], [address] [place] [address] [email or web address] iCMP Machine Cage Maker 06/02/22 06/29/22 Margarita Davidson, RN [address] [facility], [address] [place] [address] [email or web address] iCMP Machine Cage MakerSenior Analytical Chemist 07/01/22 02/17/25 Jyoti Aviles, OT [address] [place] [address] [email or web address] Transitions Machine Cage MakerOccupational Health Coordinator Therapy 12/12/2312/14/23 documented as of this encounter Additional Source Comments The information contained in this document represents components of the legal health record. It is not the complete legal health record.[facility]
--- OUTSIDE RECORDS SUMMARY | 2025-06-12 14:14 | XMS_ITS | Encounter Summary ---
Author Organization [facility] Address [address] [place] [address] Phone Care Team Providers Care Global Engineering Manager Name Role Phone Xuan Ferraro DO Primary Care Provider + [phone] Damien Lance MD Unavailable Xuan Ferraro DO Unavailable [phone] Harris Lennon MD Primary Care Provider + [phone] Kory Vogt MD Unavailable Xuan Ferraro DO Unavailable [phone] Harris Lennon MD Unavailable [phone] Margarita Davidson RN Unavailable [email or web address] Margarita Davidson RN Unavailable [email or web address] Jyoti Aviles OT Unavailable [phone] Encounter Details Date Type Department Care Team (Late st Contact Info) Description 11/29/2018 Procedure Pass [facility], [address] [address] Social History Tobacco Use Types Packs/Day Years [...] Info) Description 04/08/2025 Procedure Pass Echo Lab [address] [place] [address] 07/30/2025 10:45 AM EST Office Visit [facility] [address] [place] [address] [place] [address] Harris Lennon MD [address] [place] [address], [address] [place] [address] 09/09/2025 11:15 AM EST Appointment Echo Lab [address] [place] [address] Stacie Gruber PA-C [address] [place] [address] 09/27/2025 10:40 AM EST Office Visit [facility] [address] [place] [address] 3rd Floor, [address] [place] [address] Davidson Gunter MD [address] [place] [address], [address] [address] 02/14/2026 10:10 AM EDT Office Visit [facility] [address] [place] [address] [place] [address] Talon Seth DO [address] [place] [address] [email or web address] documented as of this encounter Visit Diagnoses [...] documented as of this encounter Care Teams Global Engineering Manager Relationship Specialty Start Date End Date Xuan Ferraro DO [address] [place] [address] [email or web address] PCP - General 09/15/18 01/15/21 Harris Lennon MD [address] [facility], [address] [place] [address] [email or web address] PCP - General Internal Medicine 01/16/21 Damien Lance MD [address] [facility] Floor 1 [place] [address] [email or web address] Insurance Assigned Provider 07/16/17 06/09/19 Xuan Ferraro DO [address] [place] [address] [email or web address] Insurance Assigned Provider 06/09/19 10/06/21 Kory Vogt MD [address] [place] [address] [email or web address] Gastroenterology 10/07/21 Xuan Ferraro DO [address] [place] [address] [email or web address] Insurance Assigned Provider 06/09/19 12/19/21 Harris Lenonn MD [address] [place] [address], [address] [place] [address] [email or web address] Insurance Assigned Provider 12/17/23 Margarita Davidson RN [address] [place] [address], [address] [place] [address] [email or web address] iCMP Rural Mail Contractor 06/02/22 06/29/22 Margarita Davidson RN [address] [place] [address], [address] [place] [address] [email or web address] iCMP Rural Mail ContractorHousing Officer 07/01/22 02/17/25 Jyoti Aviles, OT [address] [place] [address] [email or web address] Transitions Rural Mail ContractorLie Detector Operator Therapy 12/12/2312/14/23 documented as of this encounter Additional Source Comments The information contained in this document represents components of the legal health record. It is not the complete legal health record.[facility]
--- OUTSIDE RECORDS SUMMARY | 2025-06-12 14:14 | XMS_ITS | Encounter Summary ---
Author Organization [facility] Address [address] [place] [address] Phone Care Team Providers Care Fan Blade Aligner Name Role Phone Xuan Ferraro DO Unavailable [phone] Harris Lennon MD Primary Care Provider [phone] Kory Vogt MD Unavailable Xuan Ferraro DO Unavailable [phone] Harris Lennon MD Unavailable [phone] Margarita Davidson RN Unavailable [email or web address] Margarita Davidson RN Unavailable [email or web address] Jyoti Aviles OT Unavailable [phone] Reason for Referral * MRI/CAT Scan - Closed Specialty Diagnoses / Procedures Referred By Contac t Referred To Contact Radiology Diagnoses RLQ abdominal pain Weight loss, abnormal Procedures CT Abdomen/Pelvis Javier Chauhan MD Phone: tel: fax: [email or web address] Referral ID Status Reason Start Date Expiration Date Visits Re quested Visits Authorized [id number] Closed 04/23/2021 04/23/2022 1 1 Encounter Details Date Type Department Care Team (Latest Contact Info) Description 04/23/2021 Transcribe Orders Virtual Department [address] [place] [address] [place] [address] Javier Chauhan MD [address] [place] [address] RLQ abdominal pain (Primary Dx); Weight loss, [...] Info) Description 04/08/2025 Procedure Pass Echo Lab [address] [place] [address] 07/30/2025 10:45 AM EST Office Visit [facility] [place] [facility] [address] [place] [address] [place] [address] Harris Lennon MD [address] [place] [address], [address] [place] [address] 09/09/2025 11:15 AM EST Appointment Echo Lab [address] [place] [address] Stacie Gruber PA-C [address] [place] [address] 09/27/2025 10:40 AM EST Office Visit [facility] [address] [place] [address] 3rd Floor, [address] [place] [address] Davidson Gunter MD [address] [place] [address], [address] [place] [address] [email or web address] 02/14/2026 10:10 AM EDT Office Visit [facility] [address] [place] [address] Rolo Talon, DO [address] [place] [address] [email or web address] documented as of this encounter Results * [...] documented as of this encounter Care Teams Fan Blade Aligner Relationship Specialty Start Date End Date Harris Lennon MD [address] [place] [address], [address] [place] [address] [email or web address] PCP - General Internal Medicine 01/16/21 Xuan Ferraro DO [address] [place] [address] [email or web address] Insurance Assigned Provider 06/09/19 10/06/21 Kory Vogt MD [address] [place] [address] [email or web address] 10/07/21 Xuan Ferraro DO [address] [place] [address] [email or web address] Insurance Assigned Provider 06/09/19 12/19/21 Harris Lennon MD [address] [place] [address], [address] [place] [address] [email or web address] Insurance Assigned Provider 12/17/23 Margarita Davidson RN [address] [place] [address], [address] [place] [address] [email or web address] iCMP Body Former 06/02/22 06/29/22 Margarita Davidson RN [address] [place] [address], [address] [place] [address] [email or web address] iCMP Body FormerService Center Coordinator 07/01/22 02/17/25 Jyoti Aviles, OT [address] [place] [address] [email or web address] Transitions Body FormerDrum Worker Therapy 12/12/2312/14/23 documented as of this encounter Additional Source Comments The information contained in this document represents components of the legal health record. It is not the complete legal health record.[facility]
--- OUTSIDE RECORDS SUMMARY | 2025-06-12 14:14 | XMS_ITS | Encounter Summary ---
Author Organization [facility] Address [address] [place] [address] Phone Care Team Providers Care Assistant Sales Director Name Role Phone Xuan Ferraro DO Unavailable [phone] Harris Lennon MD Primary Care Provider [phone] Kory Vogt MD Unavailable Xuan Ferraro DO Unavailable [phone] Harris Lennon MD Unavailable [phone] Margarita Davidson RN Unavailable [email or web address] Margarita Davidson RN Unavailable [email or web address] Jyoti Aviles OT Unavailable [phone] Encounter Details Date Type Department Care Team (Late st Contact Info) Description 04/23/2021 Procedure Pass [facility], Ct Scan - [address] [address] Social History Tobacco Use Types Packs/Day Years [...] Info) Description 04/08/2025 Procedure Pass Echo Lab [address] [place] [address] 07/30/2025 10:45 AM EST Office Visit [facility] [address] [place] [address] [place] [address] Harris Lennon MD [address] [place] [address], [address] [place] [address] 09/09/2025 11:15 AM EST Appointment Echo Lab [address] [place] [address] Stacie Gruber PA-C [address] [place] [address] 09/27/2025 10:40 AM EST Office Visit [facility] [address] [place] [address] 3rd Floor, [address] [place] [address] Davidson Gunter MD [address] [place] [address], [address] [place] [address] 02/14/2026 10:10 AM EDT Office Visit [facility] [address] [place] [address] [place] [address] Talon Seth DO [address] [place] [address] documented as of this encounter Visit Diagnoses [...] documented as of this encounter Care Teams Assistant Sales Director Relationship Specialty Start Date End Date Harris Lennon MD [address] [place] [address], [address] [place] [address] PCP - General Internal Medicine 01/16/21 Xuan Ferraro DO [address] [place] [address] [email or web address] Insurance Assigned Provider 06/09/19 10/06/21 Kory Vogt MD [address] [place] [address] [email or web address] 10/07/21 Xuan Ferraro DO [address] [place] [address] [email or web address] Insurance Assigned Provider 06/09/19 12/19/21 Harris Lennon MD [address] [place] [address], [address] [place] [address] [email or web address] Insurance Assigned Provider 12/17/23 Margarita Davidson RN [address] [place] [address], [address] [place] [address] [email or web address] iCMP Window Unit Air Conditioning Mechanic 06/02/22 06/29/22 Margarita Davidson RN [address] [place] [address], [address] [place] [address] [email or web address] iCMP Window Unit Air Conditioning MechanicInk Technician 07/01/22 02/17/25 Jyoti Aviles, OT [address] [place] [address] [email or web address] Transitions Window Unit Air Conditioning MechanicUtility Worker Driver Therapy 12/12/2312/14/23 documented as of this encounter Additional Source Comments The information contained in this document represents components of the legal health record. It is not the complete legal health record.[facility]
--- OUTSIDE RECORDS SUMMARY | 2025-06-12 14:14 | XMS_ITS | Encounter Summary ---
Author Organization [facility] Address [address] [place] [address] Phone Care Team Providers Care Soa Engineer Name Role Phone Xuan Ferraro DO Primary Care Provider + [phone] Xuan Ferraro DO Unavailable [phone] Harris Lennon MD Primary Care Provider [phone] Kory Vogt MD Unavailable Xuan Ferraro DO Unavailable [phone] Harris Lennon MD Unavailable [phone] Margarita Davidson RN Unavailable [email or web address] Margarita Davidson RN Unavailable [email or web address] Jyoti Aviles OT Unavailable [phone] Encounter Details Date Type Department Care Team (Late st Contact Info) Description 05/21/2020 Procedure Pass [facility], [address] [address] Social History Tobacco Use Types Packs/Day Years [...] Info) Description 04/08/2025 Procedure Pass Echo Lab [address] [place] [address] 07/30/2025 10:45 AM EST Office Visit [facility] [address] [place] [address] [place] [address] Harris Lennon MD [address] [place] [address], [address] [place] [address] 09/09/2025 11:15 AM EST Appointment Echo Lab [address] [place] [address] Stacie Gruber PA-C [address] [place] [address] 09/27/2025 10:40 AM EST Office Visit [facility] [address] [place] [address] 3rd Floor, [address] [place] [address] Davidson Gunter MD [address] [place] [address], [address] [place] [address] 02/14/2026 10:10 AM EDT Office Visit [facility] [address] [place] [address] [place] [address] Talon Seth DO [address] [place] [address] documented as of this encounter Visit Diagnoses [...] documented as of this encounter Care Teams Soa Engineer Relationship Specialty Start Date End Date Xuan Ferraro DO [address] [place] [address] [email or web address] PCP - General 09/15/18 01/15/21 Harris Lennon MD [address] [place] [address], [address] [place] [address] .[employer] PCP - General Internal Medicine 01/16/21 Xuan Ferraro DO [address] [place] [address] [email or web address] Insurance Assigned Provider 06/09/19 10/06/21 Kory Vogt MD [address] [place] [address] Gastroenterology 10/07/21 Xuan Ferraro DO [address] [place] [address] [email or web address] Insurance Assigned Provider 06/09/19 12/19/21 Harris Lennon MD [address] [place] [address], [address] [place] [address] .[employer] Insurance Assigned Provider 12/17/23 Margarita Davidson RN [address] [place] [address], [address] [place] [address] [email or web address] iCMP Nurse Practitioner Hospitalist 06/02/22 06/29/22 Margarita Davidson, RN [address] [facility], [address] [place] [address] [email or web address] iCMP Nurse Practitioner HospitalistMixer Driver 07/01/22 02/17/25 Jyoti Aviles, OT [address] [place] [address] [email or web address] Transitions Nurse Practitioner HospitalistConcrete Swimming Pool Installer Therapy 12/12/2312/14/23 documented as of this encounter Additional Source Comments The information contained in this document represents components of the legal health record. It is not the complete legal health record.[facility]
--- OUTSIDE RECORDS SUMMARY | 2025-06-12 14:14 | XMS_ITS | Encounter Summary ---
Author Organization [facility] Address [address] [facility] [address] [place] [address] Phone Care Team Providers Care Criminal Justice Program Director Name Role Phone Damien Lance MD Primary Care Provide r Xuan Ferraro DO Primary Care Provider + [phone] Damien Lance MD Unavailable [phone] Xuan Ferraro DO Unavailable [phone] Harris Lennon MD Primary Care Provider + [phone] Kory Vogt MD Unavailable Xuan Ferraro DO Unavailable [phone] Harris Lennon MD Unavailable [phone] Margarita Davidson RN Unavailable [email or web address] Margarita Davidson RN Unavailable [email or web address] Jyoti Aviles OT Unavailable [phone] Encounter Details Date Type Department Care Team (Latest Contact Info) Description 02/13/2018 Transcribe Orders [facility] Laboratory [address] [id number] Javier Chauhan MD [address] [id number] [email or web address] Gastroesophageal reflux disease without esophagitis [...] Info) Description 04/08/2025 Procedure Pass Echo Lab [address] [place] [address] 07/30/2025 10:45 AM EST Office Visit [facility] Medicine [address] [place] [address] [place] [address] Harris Lennon MD [address] [place] [address], [address] [place] [address] 09/09/2025 11:15 AM EST Appointment Echo Lab [address] [place] [address] Stacie Gruber, PACony [address] [place] [address] 09/27/2025 10:40 AM EST Office Visit [facility] [address] [place] [address] 3rd Floor, [address] [place] [address] Davidson Gunter MD [address] [place] [address], [address] [address] 02/14/2026 10:10 AM EDT Office Visit [facility] [address] [place] [address] [place] [address] Talon Seth DO [address] [place] [address] [email or web address] documented as of this encounter Results * (ABNORMAL) C-Reactive Protein (02/13/2018 2:31 PM EDT) C REACTIVE PROTEIN 6.4(H) 0.0 - 4.0 mg/L [facility] Comment:New Reference Range and Measuring Units effective 01/25/18. Blood 02/13/2018 2:31 PM EDT 02/13/2018 2:36 PM EDT us Javier Chauhan MD LAB BLOOD ORDERABLES Final R esult [facility] [address] [place] [address] * (ABNORMAL) Comprehensive metabolic panel (02/13/2018 2:31 PM EDT) Pathologist [facility] SODIUM 133 133 - 146 mmol/L [facility] POTASSIUM 5.6(H) 3.3 - 5.1 mmol/L [facility] CHLORIDE 94(L) 96 - 108 mmol/L [facility] CO2 27 21 - 35 mmol/L [facility] BUN 14 6 - 19 mg/dL [facility] CREATININE 0.60 0.5 - 1.5 mg/dL [facility] GLUCOSE 108(H) 70 - 99 mg/dL [facility] ALBUMIN 4.2 3.9 - 4.8 g/dL [facility] TOTAL PROTEIN 6.6 6.5 - 8.0 g/dL [facility] CALCIUM 9.3 8.4 - 10.3 mg/dL [facility] ALKALINE PHOSPHATASE 43 39 - 117 U/L [facility] TOTAL BILIRUBIN 0.2 0.0 - 1.2 mg/dL [facility] AST 20 0 - 37 U/L [facility] ALT 14 0 - 40 U/L [facility] GLOBULIN 2.4 1 - 4.8 g/dL [facility] EGFR 90 >59 mL/min/1.7 3m2 [facility] Comment:If patient is black, multiply result by 1.159. The eGFR calculation has changed from the MDRD equation to the CKD-EPI equation as of November 15, 2017. ANION GAP 18 10 - 20 mmol/L [facility] Blood 02/13/2018 2:31 PM EDT 02/13/2018 2:36 PM EDT us Javier Chauhan MD LAB BLOOD ORDERABLES Final R esult Performing Organization Address [facility]/ZIP Co de Phone Number [address] [address] * Tissue transglutaminase IgA (02/13/2018 2:31 PM EDT) TTG IGA ANTIBODY <1.2 <4.0 (Negative) U/mL [facility] DPT OF LAB MED AND PAT+ Blood 02/13/2018 2:31 PM EDT 02/13/2018 2:37 PM EDT us Javier Chauhan MD LAB BLOOD ORDERABLES Final R esult Performing Organization Address [facility]/ZIP Co de Phone Number [facility] DPT OF LAB MED AND PAT+ [address] [place] [address] * Immunoglobulin A (02/13/2018 2:31 PM EDT) IgA 70 70 - 400 mg/dL [facility] Blood 02/13/2018 2:31 PM EDT 02/13/2018 2:36 PM EDT Javier Chauhan MD LAB BLOOD ORDERABLES Final R esult Performing Organization Address [facility]/ZIP Co de Phone Number [address] [address] * Gliadin deamidated antibody, IgG/IgA (02/13/2018 2:31 PM EDT) Gliadin Ab, IGA <10.0 <20.0 (Negative) U [facility] DPT OF LAB MED AND PAT+ GLIADIN AB IGG <10.0 <20.0 (Negative) U [facility] DPT OF LAB MED AND PAT+ Blood 02/13/2018 2:31 PM EDT 02/13/2018 2:37 PM EDT us Javier Chauhan MD LAB BLOOD ORDERABLES Final R esult [facility] DPT OF LAB MED AND PAT+ [address] [place] [address] * (ABNORMAL) CBC and differential (02/13/2018 2:31 PM EDT) WBC 8.84 3.40 - 11.20 K/uL [facility] RBC 4.07 3.80 - 4.80 M/uL [facility] HGB 12.3 12.0 - 15.0 g/dL [facility] HCT 38.2 36.0 - 46.0 % [facility] PLT 333 130 - 400 K/uL [facility] MCV 93.9 79.0 - 98.0 fL [facility] MCH 30.2 27.0 - 34.8 pg [facility] MCHC 32.2 31.5 - 36.0 g/dL [facility] RDW 14.4 10.8 - 14.6 % [facility] MPV 9.8 9.4 - 12.4 fl [facility] NRBC 0.00 /100 WBCs [facility] ABSOLUTE NRBC 0.00 K/uL [facility] DIFF METHOD Auto [facility] NEUTS 79.6(H) 45.30 - 77.70 % [facility] LYMPHS 12.6 12.30 - 39.70 % [facility] MONOS 6.2 4.10 - 12.80 % [facility] EOS 0.8 0 - 7.2 % [facility] BASOS 0.3 0 - 2.80 % [facility] Granulocytes, immature (%) 0.5 0.0 - 0.9 % [facility] ABSOLUTE NEUTS 7.04 1.40 - 7.70 K/uL [facility] ABSOLUTE LYMPHS 1.11 0.60 - 3.20 K/uL [facility] ABSOLUTE MONOS 0.55 0.11 - 0.59 K/uL [facility] ABSOLUTE EOS 0.07 0.01 - 0.50 K/uL [facility] ABSOLUTE BASOS 0.03 0.00 - 0.08 K/uL [facility] Granulocytes, immature 0.04 0.00 - 0.05 K/uL [facility] Blood 02/13/2018 2:31 PM EDT 02/13/2018 2:36 PM EDT us Javier Chauhan MD LAB BLOOD ORDERABLES Final R esult [facility] [address] [place] [address] documented in this encounter Visit Diagnoses Diagnosis [...] documented as of this encounter Care Teams Criminal Justice Program Director Relationship Specialty Start Date End Date Damien Lance MD [email or web address] PCP - General Internal Medicine 07/18/17 09/14/18 Xuan Ferraro DO [address] [place] [address] [email or web address] PCP - General 09/15/18 01/15/21 Harris Lennon MD [address] [place] [address], [address] [place] [address] [email or web address] PCP - General Internal Medicine 01/16/21 Damien Lance MD [address] [place] [address] Floor [address] [place] [address] [email or web address] Insurance Assigned Provider 07/16/17 06/09/19 Xuan Ferraro DO [address] [place] [address] [email or web address] Insurance Assigned Provider 06/09/19 10/06/21 Kory Vogt MD [address] [place] [address] [email or web address] Gastroenterology 10/07/21 Xuan Ferraro DO [address] [place] [address] [email or web address] Insurance Assigned Provider 06/09/19 12/19/21 Harris Lennon MD [address] [place] [address], [address] [place] [address] [email or web address] Insurance Assigned Provider 12/17/23 Margarita Davidson RN [address] [place] [address], [address] [place] [address] [email or web address] iCMP Coping Machine Assembler 06/02/22 06/29/22 Margarita Davidson RN [address] [place] [address], [address] [address] [email or web address] iCMP Coping Machine AssemblerRange Manager 07/01/22 02/17/25 Jyoti Aviles, OT [address] [place] [address] [email or web address] Transitions Coping Machine AssemblerFlexo Operator Therapy 12/12/2312/14/23 documented as of this encounter Additional Source Comments The information contained in this document represents components of the legal health record. It is not the complete legal health record.[facility]
--- OUTSIDE RECORDS SUMMARY | 2025-06-12 14:14 | XMS_ITS | Encounter Summary ---
Author Organization [facility] Address [address] [place] [address] Phone Care Team Providers Care Flamer Sealer Name Role Phone Harris Lennon MD Primary Care Provider [phone] oKry Vogt MD Unavailable Harris Lennon MD Unavailable [phone] Encounter Details Date Type Department Care Team (Late st Contact Info) Description 05/21/2025 Orders Only [facility] [address] [place] [address] Provider, MD Gary [address] [place] [address] Social History Tobacco Use Types Packs/Day [...] Description 04/08/2025 Procedure Pass Echo Lab [address] [place] [address] 07/30/2025 10:45 AM EST Office Visit [facility] Medicine [address] [place] [address] [place] [address] Harris Lennon MD [address] [place] [address], [address] [place] [address] 09/09/2025 11:15 AM EST Appointment Echo Lab [address] [place] [address] Stacie Gruber PA-C [address] [place] [address] 09/27/2025 10:40 AM EST Office Visit [facility] [address] [place] [address] 3rd Floor, [address] [place] [address] Davidson Gunter MD [address] [place] [address], [address] [place] [address] 02/14/2026 10:10 AM EDT Office Visit [place] [address] Talon Seth DO [address] [place] [address] [email or web address] documented as of this encounter Procedures Procedure [...] documented as of this encounter Care Teams Flamer Sealer Relationship Specialty Start Date End Date Harris Lennon MD [address] [place] [address], [address] [place] [address] PCP - General Internal Medicine 01/16/21 Kory Vogt MD [address] [place] [address] Gastroenterology 10/07/21 Harris Lennon MD [address] [place] [address], [address] [place] [address] Insurance Assigned Provider 12/17/23 documented as of this encounter Additional Source Comments The information contained in this document represents components of the legal health record. It is not the complete legal health record.[facility]
--- OUTSIDE RECORDS SUMMARY | 2025-06-12 14:15 | XMS_ITS | Encounter Summary ---
Author Organization [facility] Address [address] [place] [address] Phone Care Team Providers Care Ensemble Member Name Role Phone Harris Lennon MD Primary Care Provider [phone] Kory Vogt MD Unavailable Harris Lennon MD Unavailable [phone] Margarita Davidson RN Unavailable [email or web address] Encounter Details Date Type Department Care Team (Late st Contact Info) Description 08/02/2024 Procedure Pass [facility], [address] [phone] Social History Tobacco Use Types Packs/Day Years [...] Info) Description 04/08/2025 Procedure Pass Echo Lab [address] [place] [address] 07/30/2025 10:45 AM EST Office Visit [facility] Medicine [address] [place] [address] [place] [address] Harris Lennon MD [address] [place] [address], [address] [place] [address] 09/09/2025 11:15 AM EST Appointment Echo Lab [address] [place] [address] Stacie Gruber PA-C [address] [place] [address] 09/27/2025 10:40 AM EST Office Visit [facility] [address] [place] [address] 3rd Floor, [address] [place] [address] Davidson Gunter MD [address] [place] [address], [address] [place] [address] 02/14/2026 10:10 AM EDT Office Visit [facility] [address] [place] [address] Talon Seth DO [address] [place] [address] [email or web address] documented as of this encounter Visit Diagnoses Not on filedocumented in this encounter Additional Health Concerns Assessment Noted Time PHQ-9 Depression Total Score: 15 018 2:17 PM EST PHQ-2 Depression Total Score: 0 09/06/20 24 10:43 AM EST documented as of this encounter Care Teams Ensemble Member Relationship Specialty Start Date End Date Harris Lennon MD [address] [place] [address], [address] [address] PCP - General Internal Medicine 01/16/21 Kory Vogt MD [address] [place] [address] [email or web address] Gastroenterology 10/07/21 Harris Lennon MD [address] [place] [address] [email or web address] Insurance Assigned Provider 12/17/23 Margarita Davidson RN [address] [place] [address] [email or web address] iCMP Insulation MechanicIt Infrastructure Project Manager 07/01/22 02/17/25 documented as of this encounter Additional Source Comments The information contained in this document represents components of the legal health record. It is not the complete legal health record.[facility]
--- OUTSIDE RECORDS SUMMARY | 2025-06-12 14:15 | XMS_ITS | Encounter Summary ---
Author Organization [facility] Address [address] [place] [address] Phone Care Team Providers Care Engraver Picture Name Role Phone Xuan Ferraro DO Primary Care Provider + [phone] Xuan Ferraro DO Unavailable [phone] Harris Lennon MD Primary Care Provider Kory Vogt MD Unavailable Xuan Ferraro DO Unavailable [phone] Harris Lennon MD Unavailable [phone] Margarita Davidson RN Unavailable [email or web address] Margarita Davidson RN Unavailable [email or web address] Jyoti Aviles OT Unavailable [phone] Encounter Details Date Type Department Care Team (Late st Contact Info) Description 05/23/2020 Procedure Pass [facility], [address] [address] Social History Tobacco Use Types Packs/Day Years [...] Description 04/08/2025 Procedure Pass Echo Lab [address] [place] [address] 07/30/2025 10:45 AM EST Office Visit [address] [place] [address] Harris Lennon MD [address] [place] [address], [address] [place] [address] 09/09/2025 11:15 AM EST Appointment Echo Lab [address] [place] [address] Stacie Gruber PA-C [address] [place] [address] 09/27/2025 10:40 AM EST Office Visit [facility] [address] [place] [address] 3rd Floor, [address] [place] [address] Davidson Gunter MD [address] [place] [address], [address] [place] [address] 02/14/2026 10:10 AM EDT Office Visit [facility] [address] [place] [address] [place] [address] Talon Seth DO [address] [place] [address] [email or web address] documented as of [...] documented as of this encounter Care Teams Engraver Picture Relationship Specialty Start Date End Date Xuan Ferraro DO [address] [place] [address] [email or web address] PCP - General 09/15/18 01/15/21 Harris Lennon MD [address] [place] [address] [address] [place] [address] PCP - General Internal Medicine 01/16/21 Xuan Ferraro DO [address] [place] [address] [email or web address] Insurance Assigned Provider 06/09/19 10/06/21 Kory Vogt MD [address] [place] [address] Gastroenterology 10/07/21 Xuan Ferraro DO [address] [place] [address] [email or web address] Insurance Assigned Provider 06/09/19 12/19/21 Harris Lennon MD [address] [place] [address], [address] [place] [address] [email or web address] Insurance Assigned Provider 12/17/23 Margarita Davidson RN [address] [place] [address], [address] [place] [address] iCMP Regional Retail Sales Manager 06/02/22 06/29/22 Margarita Davidson RN [address] [place] [address], [address] [place] [address] [email or web address] iCMP Regional Retail Sales ManagerOut Of School Hours Care Worker 07/01/22 02/17/25 Jyoti Aviles, OT [address] [place] [address] [email or web address] Transitions Regional Retail Sales ManagerChairman Therapy 12/12/2312/14/23 documented as of this encounter Additional Source Comments The information contained in this document represents components of the legal health record. It is not the complete legal health record.[facility]
--- OUTSIDE RECORDS SUMMARY | 2025-06-12 14:15 | XMS_ITS | Encounter Summary ---
Author Organization [facility] Address [address] [place] [address] Phone Care Team Providers Care Senior Ui Web Developer Name Role Phone Harris Lennon MD Primary Care Provider [phone] Kory Vogt MD Unavailable Harris Lennon MD Unavailable [phone] Margarita Davidson RN Unavailable [email or web address] Margarita Davidson RN Unavailable [email or web address] Jyoti Aviles OT Unavailable [phone] Encounter Details Date Type Department Care Team (Late st Contact Info) Description 12/23/2021 Procedure Pass Echo Lab [address] [place] [address] Social History Tobacco Use Types Packs/Day Years [...] Description 04/08/2025 Procedure Pass Echo Lab [address] [place] [address] 07/30/2025 10:45 AM EST Office Visit [facility] Medicine [address] [place] [address] [place] [address] Harris Lennon MD [address] [place] [address], [address] [place] [address] 09/09/2025 11:15 AM EST Appointment Echo Lab [address] [place] [address] Stacie Gruber PA-C [address] [place] [address] 09/27/2025 10:40 AM EST Office Visit [facility] [address] [place] [address] 3rd Floor, [address] [place] [address] Davidson Gunter MD [address] [place] [address], [address] [place] [address] 02/14/2026 10:10 AM EDT Office Visit [facility] [address] [place] [address] [place] [address] Talon Seth DO [address] [place] [address] documented as of this encounter Visit Diagnoses [...] documented as of this encounter Care Teams Senior Ui Web Developer Relationship Specialty Start Date End Date Harris Lennon MD [address] [place] [address], [address] [place] [address] PCP - General Internal Medicine 01/16/21 Kory Vogt MD [address] [place] [address] page Gastroenterology 10/07/21 Harris Lennon MD [address] [place] [address], [address] [place] [address] [email or web address] Insurance Assigned Provider 12/17/23 Margarita Davidson RN [address] [place] [address], [address] [place] [address] [email or web address] iCMP Javascript Ui Developer 06/02/22 06/29/22 Margarita Davidson RN [address] [place] [address], [address] [place] [address] [email or web address] iCMP Javascript Ui DeveloperSearch Specialist 07/01/22 02/17/25 Jyoti Aviles, OT [address] [place] [address] [email or web address] Transitions Javascript Ui DeveloperVehicle Washer Therapy 12/12/2312/14/23 documented as of this encounter Additional Source Comments The information contained in this document represents components of the legal health record. It is not the complete legal health record.[facility]
--- OUTSIDE RECORDS SUMMARY | 2025-06-12 14:15 | XMS_ITS | Encounter Summary ---
Author Organization [facility] Address [address] [place] [address] Phone Care Team Providers Care Chief Chemist Name Role Phone Zeina BurnsSW Unavailable Unavailab Damien Foley MD Unavailable [phone] Gabriel Fay MD [facility]available [email or web address] Darryl Hooks MD Unavailable Yury Eugene POWER DRIVEN BRUSH MAKER Unavailable [phone] Merle Morrell MD Unavailable Christiano Alfaro MD Unavailable [phone] Kanchan Chow POWER DRIVEN BRUSH MAKER Unavailable [phone] Allen Quevedo MD Unavailable Sheng Hermosillo MD Unavailable [phone] Talon Beaulieu MD Unavailable [phone] Cece Perez MD Unavailable Allen Oleary MD Unavailable Tea Lamb MD Unavailable Tatianna Killian CNP Unavailable Sheng Saldivar MD Unavailable Evan Hi MD Unavailable [phone] Damien Lance MD Unavailable [phone] Damien Lance MD Primary Care Provide r Xuan Ferraro DO Primary Care Provider [phone] Damien Lance MD Unavailable [phone] Xuan Ferraro DO Unavailable [phone] Harris Lennon MD Primary Care Provider [phone] Kory Vogt MD Unavailable Xuan Ferraro DO Unavailable +[phone] Harris Lennon MD Unavailable + Margarita Davidson RN Unavailable [email or web address] Margarita Davidson RN Unavailable [email or web address] OT Unavailable [phone] Encounter Details Date Type Department Care Team (Late st Contact Info) Description 09/07/2017 Procedure Pass [facility] Endoscopy Admitting Dept Virtual Department 30 [place] [address] Social History Tobacco Use Types Packs/Day Years [...] Description 04/08/2025 Procedure Pass Echo Lab [address] [place] [address] 07/30/2025 10:45 AM EST Office Visit [address] [place] [address] Harris Lennon MD [address] [place] [address], [address] [place] [address] 09/09/2025 11:15 AM EST Appointment Echo Lab [address] [place] [address] Stacie Gruber PA-C [address] [place] [address] 09/27/2025 10:40 AM EST Office Visit [facility] [address] [place] [address] 3rd Floor, [address] [place] [address] Davidson Gunter MD [address] [place] [address], [address] [address] 02/14/2026 10:10 AM EDT Office Visit [facility] [address] [place] [address] [place] [address] Talon Seth DO 22 [place] [address] documented as of this encounter Visit Diagnoses [...] documented as of this encounter Care Teams Chief Chemist Relationship Specialty Start Date End Date Damien Lance MD [address] [place] [address] [email or web address] PCP - General Internal Medicine 07/18/17 09/14/18 Xuan Ferraro DO [address] [place] [address] [email or web address] PCP - General 09/15/18 01/15/21 Harris Lennon MD [address] [facility], [address] [place] [address] [email or web address] PCP - General Internal Medicine 01/16/21 Zeina Burns [facility] Historical LMR Provider 07/03/17 09/21/17 Damien Lance MD 22 [facility] 1 [place] [address] [email or web address] Historical LMR Provider 07/03/17 09/21/17 Gabriel Fay MD [email or web address] Historical LMR Provider 07/03/17 09/21/17 Darryl Hooks MD [address] [place] [address], [address] [place] [address] [email or web address] Historical LMR Provider 07/03/17 Yury Hawley NP [address] [place] [address] 2_[place] [address] [email or web address] Historical LMR Provider 07/03/17 09/21/17 Merle Morrell MD [address] [place] [address], 2nd [place] [address] [email or web address] Historical LMR Provider 07/03/1709/21 Christiano Alfaro MD [address] [place] [address], [address] [place] [address] [email or web address] Historical LMR Provider 07/03/17 09/21/17 Kanchan Chow, NIKO [address] [place] [address] [place] [address] Historical LMR Provider 07/03/1709/21 Allen Quevedo MD [address] [place] [address] [address] [place] [address] [email or web address] Historical LMR Provider 07/03/17 09/21/17 Sheng Hermosillo MD [address] [place] [address], [address] [place] [address] [email or web address] Historical LMR Provider 07/03/17 09/21/17 Talon Beaulieu MD [address] [place] [address], [address] [place] [address] [email or web address] Historical LMR Provider 07/03/17 Cece Perez MD [address] [place] [address] [facility] Medicine, [place] [address] [email or web address] Historical LMR Provider 07/03/17 09/21/17 Allen Oleary MD [address] [place] [address] Historical LMR Provider 07/03/1709/21 Tea Lamb MD [address] [place] [address] Historical LMR Provider 07/03/17 09/21/17 Tatianna Killian CNP [address] [facility], [address] [place] [address] [email or web address] Historical LMR Provider 07/03/1709/21 [place] [address] [email or web address] Historical LMR Provider 07/03/17 8 Evan Hi MD 10 [facility] 1 [place] [address] [email or web address] Historical LMR Provider 07/03/17 09/21/17 Damien Lance MD 22 [facility] 1 [place] [address] [email or web address] Insurance Assigned Provider 07/16/17 09/21/17 Damien Lance MD 22 [facility] 1 [place] [address] [email or web address] Insurance Assigned Provider 07/16/17 06/09/19 Xuan Ferraro DO [address] [address] [email or web address] Insurance Assigned Provider 06/09/19 10/06/21 Kory Vogt MD [address] [address] [email or web address] Gastroenterology 10/07/21 Xuan Ferraro DO [address] [place] [address] [email or web address] Insurance Assigned Provider 06/09/19 12/19/21 Harris Lennon MD [address] [place] [address], [address] [place] [address] [email or web address] Insurance Assigned Provider 12/17/23 Margarita Davidson RN [address] [place] [address], [address] [place] [address] [email or web address] iCMP Booster Pump Oiler 06/02/22 06/29/22 Margarita Davidson RN [address] [place] [address], [address] [place] [address] [email or web address] iCMP Booster Pump OilerHopper Attendant 07/01/22 02/17/25 Jyoti Aviles, OT [address] [place] [address] [email or web address] Transitions Booster Pump OilerField Software Engineer Therapy 12/12/23 12/14/23 documented as of this encounter Additional Source Comments The information contained in this document represents components of the legal health record. It is not the complete legal health record.[facility]
--- OUTSIDE RECORDS SUMMARY | 2025-06-12 14:15 | XMS_ITS | Encounter Summary ---
Author Organization [facility] Address [address] [place] [address] Phone Care Team Providers Care Light Bulb Replacer Name Role Phone Xuan Ferraro DO Primary Care Provider + [phone] Xuan Ferraro DO Unavailable [phone] Harris Lennon MD Primary Care Provider Kory Vogt MD Unavailable Xuan Ferraro DO Unavailable [phone] Harris Lennon MD Unavailable [phone] Margarita Davidson RN Unavailable [email or web address] Margarita Davidson RN Unavailable [email or web address] Jyoti Aviles OT Unavailable [phone] Encounter Details Date Type Department Care Team (Latest Contact Info) Description 08/13/2019 Transcribe Orders [facility] [address] [place] [address] Gabriel Fay MD [email or web address] Personal history of arthritis (Primary Dx); Senile [...] Info) Description 04/08/2025 Procedure Pass Echo Lab [address] [place] [address] 07/30/2025 10:45 AM EST Office Visit [facility] [address] [place] [address] [place] [address] Harris Lennon MD [address] [place] [address], [address] [place] [address] 09/09/2025 11:15 AM EST Appointment Echo Lab [address] [place] [address] Stacie Gruber PA-C [address] [place] [address] 09/27/2025 10:40 AM EST Office Visit [facility] [address] [place] [address] 3rd Floor, [address] [place] [address] Davidson Gunter MD [address] [place] [address], [address] [place] [address] 02/14/2026 10:10 AM EDT Office Visit [facility] [address] [place] [address] [place] [address] Talon Seth DO [address] [place] [address] documented as of this encounter Visit Diagnoses [...] documented as of this encounter Care Teams Light Bulb Replacer Relationship Specialty Start Date End Date Xuan Ferraro DO [address] [place] [address] [email or web address] PCP - General 09/15/18 01/15/21 Harris Lennon MD [address] [place] [address], [address] [place] [address] PCP - General Internal Medicine 01/16/21 Xuan Ferraro DO [address] [place] [address] [email or web address] Insurance Assigned Provider 06/09/19 10/06/21 Kory Vogt MD [address] [place] [address] [email or web address] Gastroenterology 10/07/21 Xuan Ferraro DO [address] [place] [email or web address] Insurance Assigned Provider 06/09/19 12/19/21 Harris Lennon MD [address] [place] [address], [address] [place] [address] [email or web address] Insurance Assigned Provider 12/17/23 Margarita Davidson RN [address] [place] [address], [address] [place] [address] [email or web address] iCMP Home Improvement Installer 06/02/22 06/29/22 Margarita Davidson RN [address] [place] [address], [address] [place] [address] [email or web address] iCMP Home Improvement InstallerProcurement Agent 07/01/22 02/17/25 Jyoti Aviles, OT [address] [place] [address] [email or web address] Transitions Home Improvement InstallerDeli Bakery Clerk Therapy 12/12/2312/14/23 documented as of this encounter Additional Source Comments The information contained in this document represents components of the legal health record. It is not the complete legal health record.[facility]
--- OUTSIDE RECORDS SUMMARY | 2025-06-12 14:15 | XMS_ITS | Encounter Summary ---
Author Organization [facility] Address [address] [place] [address] Phone Care Team Providers Care Drawing Supervisor Name Role Phone Harris Lennon MD Primary Care Provider [phone] Kory Vogt MD Unavailable Harris Lennon MD Unavailable [phone] Margarita Davidson RN Unavailable [email or web address] Encounter Details Date Type Department Care Team (Late st Contact Info) Description 05/01/2024 Telephone [facility] [address] [place], [place] [phone] Opal Billy, RN [address] [place] [phone] [email or web address] Social History Tobacco Use Types [...] - 05/01/2024 11:31 AM EDT Dalila from [facility] Anticoag Clinic calls to [...] Description 04/08/2025 Procedure Pass Echo Lab [address] [place] [address] 07/30/2025 10:45 AM EST Office Visit [facility] [address] [place] [address] [place] [address] Harris Lennon MD [address] [place] [address], [address] [place] [address] 09/09/2025 11:15 AM EST Appointment Echo Lab [address] [place] [address] Stacie Gruber PA-C [address] [place] [address] 09/27/2025 10:40 AM EST Office Visit [facility] [address] [place] [address] 3rd Floor, [address] [place] [address] Davidson Gunter MD [address] [place] [address], [address] [place] [address] 02/14/2026 10:10 AM EDT Office Visit [facility] 22 [place] [address] Talon Seth DO [address] [place] [address] documented as of this encounter Visit Diagnoses Not on filedocumented in this encounter Additional Health Concerns Assessment Noted Time PHQ-9 Depression Total Score: 15 018 2:17 PM EST PHQ-2 Depression Total Score: 0 06/22/20 23 1:25 PM EDT documented as of this encounter Care Teams Drawing Supervisor Relationship Specialty Start Date End Date Harris Lennon MD [address] [place] [address], [address] [place] [address] PCP - General Internal Medicine 01/16/21 Kory Vogt MD [address] [place] [address] Gastroenterology 10/07/21 Harris Lennon MD [address] [place] [address], [address] [place] [address] Insurance Assigned Provider 12/17/23 Margarita Davidson, MARIZOL [address] [place] [address], [address] [place] [address] [email or web address] iCMP Hot Kettle TenderPayroll And Benefits Analyst 07/01/22 02/17/25 documented as of this encounter Additional Source Comments The information contained in this document represents components of the legal health record. It is not the complete legal health record.[facility]
--- OUTSIDE RECORDS SUMMARY | 2025-06-12 14:15 | XMS_ITS | Encounter Summary ---
Author Organization [facility] Address [address] [place] [address] Phone Care Team Providers Care Development Spec Name Role Phone Harris Lnenon MD Primary Care Provider [phone] Kory Vogt MD Unavailable Harris Lennon MD Unavailable [phone] Margarita Davidson RN Unavailable [email or web address] Jyoti Aviles OT Unavailable [phone] Encounter Details Date Type Department Care Team (Latest Contact Info) Description 08/02/2022 Transcribe Orders Virtual Department [address] [place], [place] [phone] Harris Lennon MD [address] [facility], [address] [place] [address] [email or web address] Breast screening (Primary Dx) Social [...] Info) Description 04/08/2025 Procedure Pass Echo Lab [address] [place] [address] 07/30/2025 10:45 AM EST Office Visit [address] [place] [address] Harris Lennon MD [address] [place] [address], [address] [place] [address] 09/09/2025 11:15 AM EST Appointment Echo Lab [address] [place] [address] Stacie Gruber PA-C [address] [place] [address] 09/27/2025 10:40 AM EST Office Visit [facility] [address] [place] [address] 3rd Floor, [address] [place] [address] Davidson Gunter MD [address] [place] [address], [address] [place] [address] 02/14/2026 10:10 AM EDT Office Visit [facility] [address] [place] [address] [place] [address] Talon Seth DO [address] [place] [address] documented as of this encounter Results * [...] documented as of this encounter Care Teams Development Spec Relationship Specialty Start Date End Date Harris Lennon MD [address] [place] [address], [address] [place] [address] PCP - General Internal Medicine 01/16/21 Kory Vogt MD [address] [place] [address] Gastroenterology 10/07/21 Harris Lennon MD [address] [place] [address], [address] [place] [address] Insurance Assigned Provider 12/17/23 Margarita Davidson, RN [address] [place] [address], [address] [place] [address] [email or web address] iCMP Software WriterDesulphuring Operator 07/01/22 02/17/25 Jyoti Aviles, OT [address] [place] [address] Transitions Software WriterFraud Analyst Therapy 12/12/2312/14/23 documented as of this encounter Additional Source Comments The information contained in this document represents components of the legal health record. It is not the complete legal health record.[facility]
--- OUTSIDE RECORDS SUMMARY | 2025-06-12 14:15 | XMS_ITS | Encounter Summary ---
Author Organization [facility] Address [address] [place] [address] Phone Care Team Providers Care Avionics Systems Integration Specialist Name Role Phone Harris Lennon MD Primary Care Provider [phone] Kory Vogt MD Unavailable Harris Lennon MD Unavailable [phone] Margarita Davidson RN Unavailable [email or web address] Encounter Details Date Type Department Care Team (Latest Contact Info) Description 09/14/2024 Transcribe Orders [facility] Specimen Processing 30 [place] [address] Harris Lennon MD 22 [facility], [address] [place] [address] [email or web address] osteoporosis without current pathological [...] Info) Description 04/08/2025 Procedure Pass Echo Lab [address] [place] [address] 07/30/2025 10:45 AM EST Office Visit [facility] [address] [place] [address] [place] [address] Harris Lennon MD 22 [facility], [address] [place] [address] 09/09/2025 11:15 AM EST Appointment Echo Lab [address] [place] [address] Stacie Gruber PA-C [address] [place] [address] 09/27/2025 10:40 AM EST Office Visit [facility] [address] [place] [address] 3rd Floor, [address] [place] [address] Davidson Gunter MD 22 [facility], [address] [place] [address] [email or web address] 02/14/2026 10:10 AM EDT Office Visit [facility] [address] [place] [address] Talon Seth DO [address] [place] [address] [email or web address] documented as of this encounter Results * (ABNORMAL) Calcium, 24 hour urine (09/17/2024 10:33 AM EST) URINE CALCIUM 7.9 mg/dL [facility] CALCIUM OUTPUT 87(L) 100 - 300 mg/total output [facility] Urine (Urine) 09/17/2024 10: 33 AM EST 09/17/2024 10:39 AM EST us Talon Seth DO URINE ORDERABLES Final Result [address] [address] * (ABNORMAL) Creatinine, 24 hr urine (09/17/2024 10:33 AM EST) URINE CREATININE 41 mg/dL [facility] CREATININE OUTPUT 451(L) 600 - 1,800 mg/total output [facility] Urine (Urine) 09/17/2024 10: 33 AM EST 09/17/2024 10:39 AM EST us Talon Seth DO URINE ORDERABLES Final Result [address] [address] documented in this encounter Visit Diagnoses Diagnosis Other osteoporosis without current pathological fracture- Primary documented in this encounter Additional Health Concerns Assessment Noted Time PHQ-9 Depression Total Score: 15 018 2:17 PM EST PHQ-2 Depression Total Score: 0 09/06/20 10:43 AM EST documented as of this encounter Care Teams Avionics Systems Integration Specialist Relationship Specialty Start Date End Date Harris Lennon MD [address] [place] [address], [address] [place] [address] PCP - General Internal Medicine 01/16/21 Kory Vogt MD [address] [place] [address] Gastroenterology 10/07/21 Harris Lennon MD [address] [place] [address], [address] [place] [address] Insurance Assigned Provider 12/17/23 Margarita Davidson RN [address] [place] [address], [address] [place] [address] [email or web address] iCMP Education CoordinatorService Worker 07/01/22 02/17/25 documented as of this encounter Additional Source Comments The information contained in this document represents components of the legal health record. It is not the complete legal health record.[facility]
--- OUTSIDE RECORDS SUMMARY | 2025-06-12 14:15 | XMS_ITS | Clinical Summary ---
Author Organization [facility] Address [address] [place] [address] Care Team Providers Care Plumber Name Role Phone Unavailable Primary Care Provider [...]
--- OUTSIDE RECORDS SUMMARY | 2025-06-12 14:15 | XMS_ITS | Encounter Summary ---
Author Organization [facility] Address [address] [place] [address] Phone Care Team Providers Care Finish Mill Operator Name Role Phone Damien Lance MD Primary Care Provide r Xuan Ferraro DO Primary Care Provider + [phone] Damien Lance MD Unavailable [phone] Xuan Ferraro DO Unavailable [phone] Harris Lennon MD Primary Care Provider + [phone] Kory Vogt MD Unavailable Xuan Ferraro DO Unavailable [phone] Harrsi Lennon MD Unavailable [phone] Margarita Davidson RN Unavailable [email or web address] Margarita Davidson RN Unavailable [email or web address] Jyoti Aviles OT Unavailable [phone] Encounter Details Date Type Department Care Team (Late st Contact Info) Description 10/17/2017 Procedure Pass [facility], Ct Scan - [address] [id number] Social History Tobacco Use Types Packs/Day Years [...] Description 04/08/2025 Procedure Pass Echo Lab [address] [place] [address] 07/30/2025 10:45 AM EST Office Visit [facility] [address] [place] [address] [place] [address] Harris Lennon MD [address] [place] [address], [address] [place] [address] 09/09/2025 11:15 AM EST Appointment Echo Lab [address] [place] [address] Stacie Gruber PA-C [address] [place] [address] 09/27/2025 10:40 AM EST Office Visit [facility] [address] [place] [address] 3rd Floor, [address] [place] [address] Davidson Gunter MD [address] [place] [address], [address] [place] [address] 02/14/2026 10:10 AM EDT Office Visit [facility] [address] [place] [address] [place] [address] Talon Seth DO 22 [place] [address] documented as of this encounter Visit Diagnoses [...] documented as of this encounter Care Teams Finish Mill Operator Relationship Specialty Start Date End Date Damien Lance MD [email or web address] PCP - General Internal Medicine 07/18/17 09/14/18 Xuan Ferraro DO [address] [place] [address] [email or web address] PCP - General 09/15/18 01/15/21 Harris Lennon MD 22 [facility], [address] [place] [address] [email or web address] PCP - General Internal Medicine 01/16/21 Damien Lance MD 22 [facility] Floor 1 [place] [address] [email or web address] Insurance Assigned Provider 07/16/17 06/09/19 Xuan Ferraro DO 9 [place] [address] [email or web address] Insurance Assigned Provider 06/09/19 10/06/21 Kory Vogt MD [address] [place] [address] [email or web address] Gastroenterology 10/07/21 Xuan Ferraro DO 9 [place] [address] [email or web address] Insurance Assigned Provider 06/09/19 12/19/21 Harris Lennon MD [address] [place] [address], [address] [place] [address] [email or web address] Insurance Assigned Provider 12/17/23 Margarita Davidson RN [address] [place] [address], [address] [place] [address] [email or web address] iCMP Senior Restaurant Manager 06/02/22 06/29/22 Margarita Davidson RN [address] [place] [address], [address] [place] [address] [email or web address] iCMP Senior Restaurant ManagerSenior Software Architect 07/01/22 02/17/25 Jyoti Aviles, OT [address] [place] [address] [email or web address] Transitions Senior Restaurant ManagerReel Winder Therapy 12/12/2312/14/23 documented as of this encounter Additional Source Comments The information contained in this document represents components of the legal health record. It is not the complete legal health record.[facility]
--- OUTSIDE RECORDS SUMMARY | 2025-06-12 14:15 | XMS_ITS | Encounter Summary ---
Author Organization [facility] Address [address] [place] [address] Phone Care Team Providers Care Director Of Clinical Trials Name Role Phone Harris Lennon MD Primary Care Provider [phone] Kory Vogt MD Unavailable Harris Lennon MD Unavailable [phone] Margarita Davidson RN Unavailable [email or web address] Encounter Details Date Type Department Care Team (Latest Contact Info) Description 08/02/2024 Transcribe Orders Virtual Department 30 [place] [address] Harris Lennon MD 22 [facility], [address] [place] [address] [email or web address] Breast screening (Primary Dx) Social [...] Description 04/08/2025 Procedure Pass Echo Lab [address] [place] [address] 07/30/2025 10:45 AM EST Office Visit [facility] [address] [place] [address] [place] [address] Harris Lennon MD [address] [place] [address], [address] [place] [address] 09/09/2025 11:15 AM EST Appointment Echo Lab [address] [place] [address] Stacie Gruber PA-C [address] [place] [address] 09/27/2025 10:40 AM EST Office Visit [facility] [address] [place] [address] 3rd Floor, [address] [place] [address] Davidson Gunter MD [address] [place] [address], [address] [place] [address] 02/14/2026 10:10 AM EDT Office Visit [facility] 22 [place] [address] Talon Seth, 22 [place] [address] documented as of this encounter Results * [...] as of this encounter Care Teams Director Of Clinical Trials Relationship Specialty Start Date End Date Harris Lennon MD [address] [place] [address], [address] [place] [address] PCP - General Internal Medicine 01/16/21 Kory Vogt MD [address] [place] [address] Gastroenterology 10/07/21 Harris Lennon MD [address] [place] [address], [address] [place] [address] Insurance Assigned Provider 12/17/23 Margarita Davidson, MARIZOL [address] [place] [address], [address] [place] [address] [email or web address] iCMP Personal Computer Network EngineerAssistant Professor Of Drama 07/01/22 02/17/25 documented as of this encounter Additional Source Comments The information contained in this document represents components of the legal health record. It is not the complete legal health record.[facility]
--- OUTSIDE RECORDS SUMMARY | 2025-06-12 14:15 | XMS_ITS | Encounter Summary ---
Author Organization [facility] Address [address] [place] [address] Care Team Providers Care Sanitation Laborer Name Role Phone Unavailable Primary Care Provider Unavailabl e Encounter Details Date Type Department Care Team (Late st Contact Info) Description 07/27/2016 Scanned Document [facility] Cardiothoracic Surgery [place] [address] [facility] [address] [place] [address] Manny Lindo MD [address] [facility] [address] [place] [address] Social History Tobacco Use Types Packs/Day Years [...]
--- OUTSIDE RECORDS SUMMARY | 2025-06-12 14:16 | XMS_ITS | Encounter Summary ---
Author Organization [facility] Address [address] [place] [address] Phone Care Team Providers Care Executive Director Sheltered Workshop Name Role Phone Harris Lennon MD Primary Care Provider [phone] Kory Vogt MD Unavailable Harris Lennon MD Unavailable [phone] Margarita Davidson RN Unavailable [email or web address] Margarita Davidson RN Unavailable [email or web address] Jyoti Aviles OT Unavailable [phone] Encounter Details Date Type Department Care Team (Late st Contact Info) Description 12/24/2021 Procedure Pass [facility] Admitting Dept Virtual Department [address] [place] [address] Social History Tobacco Use Types Packs/Day Years [...] Description 04/08/2025 Procedure Pass Echo Lab [address] [place] [address] 07/30/2025 10:45 AM EST Office Visit [facility] [address] [place] [address] [place] [address] Harris Lennon MD [address] [place] [address], [address] [place] [address] 09/09/2025 11:15 AM EST Appointment Echo Lab [address] [place] [address] Stacie Gruber PA-C [address] [place] [address] 09/27/2025 10:40 AM EST Office Visit [facility] [address] [place] [address] 3rd Floor, [address] [place] [address] Davidson Gunter MD [address] [place] [address], [address] [place] [address] 02/14/2026 10:10 AM EDT Office Visit [facility] [address] [place] [address] [place] [address] Talon Seth DO [address] [place] [address] documented as of this encounter Visit Diagnoses [...] documented as of this encounter Care Teams Executive Director Sheltered Workshop Relationship Specialty Start Date End Date Harris Lennon MD [address] [place] [address], [address] [place] [address] PCP - General Internal Medicine 01/16/21 Kory Vogt MD [address] [place] [address] Gastroenterology 10/07/21 Harris Lennon MD [address] [place] [address], [address] [place] [address] Insurance Assigned Provider 12/17/23 Margarita Davidson RN [address] [place] [address], [address] [place] [address] [email or web address] iCMP Welding Lead Burner 06/02/22 06/29/22 Margarita Davidson RN [address] [place] [address], [address] [place] [address] [email or web address] iCMP Welding Lead BurnerSanitary Napkin Machine Tender 07/01/22 02/17/25 Jyoti Aviles, OT [address] [place] [address] [email or web address] Transitions Welding Lead BurnerElectro Mechanical Assembler Therapy 12/12/2312/14/23 documented as of this encounter Additional Source Comments The information contained in this document represents components of the legal health record. It is not the complete legal health record.[facility]
--- OUTSIDE RECORDS SUMMARY | 2025-06-12 14:16 | XMS_ITS | Encounter Summary ---
Author Organization [facility] Address [address] [place] [address] Phone Care Team Providers Care Review Consultant Name Role Phone Harris Lennon MD Primary Care Provider [phone] Kory Vogt MD Unavailable Xuan Ferraro DO Unavailable [phone] Harris Lennon MD Unavailable [phone] Margarita Davidson RN Unavailable [email or web address] Margarita Davidson RN Unavailable [email or web address] Jyoti Aviles OT Unavailable [phone] Encounter Details Date Type Department Care Team (Latest Contact Info) Description 10/26/2021 Transcribe Orders [facility] Laboratory [address] [address] Margarita Hart, NIKO 10 [place] [address] Fecal smearing (Primary Dx); Diarrhea, unspecified type; [...] Description 04/08/2025 Procedure Pass Echo Lab [address] [place] [address] 07/30/2025 10:45 AM EST Office Visit [address] [place] [address] Harris Lennon MD [address] [place] [address], [address] [place] [address] 09/09/2025 11:15 AM EST Appointment Echo Lab [address] [place] [address] Stacie Gruber PA-C [address] [place] [address] 09/27/2025 10:40 AM EST Office Visit [facility] [address] [place] [address] 3rd Floor, [address] [place] [address] Davidson Gunter MD [address] [place] [address], [address] [place] [address] 02/14/2026 10:10 AM EDT Office Visit [facility] [address] [place] [address] [place] [address] Talon Seth DO 22 [place] [address] documented as of this encounter Results * (ABNORMAL) Stool fat/fiber exam (10/27/2021 8:35 AM EST) FATTY ACID INCREASED( A) NORMAL [facility] Neutral Fat, stool INCREASED( A) NORMAL [facility] Stool (Stool) 10/27/2021 8:3 5 AM EST 10/27/2021 9:59 AM EST Margarita Hart NP BODY FLUIDS AND STOOLS OR DERABLES Final Result Performing Organization Address [facility]/ZIP Co de Phone Number [address] [address] * Pancreatic Elastase, Stool (10/27/2021 8:35 AM EST) Pathologist [facility] Pancreatic Elastase, Feces 488 >200 (Normal) mcg/g [facility] Stool (Stool) 10/27/2021 8:3 5 AM EST 10/27/2021 9:59 AM EST Margarita Hart NP BODY FLUIDS AND STOOLS OR DERABLES Final Result Performing Organization Address [facility] de Phone Number [facility] [address] [place] [address] * C-Reactive Protein (10/26/2021 12:00 PM EST) Pathologist [facility] C REACTIVE PROTEIN 3.8 0.0 - 4.0 mg/L [facility] Blood 10/26/2021 12:0 0 PM EST 10/26/2021 12:05 PM EST Margarita Hart NP LAB BLOOD ORDERABLES Sofía l Result Performing Organization Address [facility] Co de Phone Number [address] [address] * (ABNORMAL) Comprehensive metabolic panel (10/26/2021 12:00 PM EST) SODIUM 135 133 - 146 mmol/L [facility] POTASSIUM 4.8 3.3 - 5.1 mmol/L [facility] CHLORIDE 101 96 - 108 mmol/L [facility] CO2 25 21 - 35 mmol/L [facility] BUN 12 6 - 19 mg/dL [facility] CREATININE 0.60 0.5 - 1.5 mg/dL [facility] GLUCOSE 109(H) 70 - 99 mg/dL [facility] ALBUMIN 4.5 3.9 - 4.8 g/dL [facility] TOTAL PROTEIN 7.3 6.5 - 8.0 g/dL [facility] CALCIUM 9.2 8.4 - 10.3 mg/dL [facility] ALKALINE PHOSPHATASE 64 39 - 117 U/L [facility] TOTAL BILIRUBIN 0.3 0.0 - 1.2 mg/dL [facility] AST 36 0 - 37 U/L [facility] ALT 21 0 - 40 U/L [facility] GLOBULIN 2.8 1 - 4.8 g/dL [facility] EGFR 92 >59 mL/min/1.7 3m2 [facility] Comment:Estimated glomerular filtration rate calculated using the CKD-EPI refit equation. ANION GAP 14 10 - 20 mmol/L [facility] Blood 10/26/2021 12:0 0 PM EST 10/26/2021 12:05 PM EST us Margarita Hart NP LAB BLOOD ORDERABLES Sofía hodge Result Performing Organization Address City/State/[facility] Co de Phone Number [address] [address] * (ABNORMAL) CBC (10/26/2021 12:00 PM EST) WBC 6.17 4.00 - 11.00 K/uL [facility] RBC 4.18 3.72 - 5.30 M/uL [facility] HGB 12.7 11.4 - 15.9 g/dL [facility] HCT 40.1 34.2 - 46.8 % [facility] PLT 250 140 - 430 K/uL [facility] MCV 95.9 78.0 - 97.0 fL [facility] MCH 30.4 25.0 - 33.0 pg [facility] MCHC 31.7(L) 32.0 - 36.0 g/dL [facility] RDW 13.6 11.0 - 16.0 % [facility] MPV 10.2 8.4 - 12.8 fl [facility] NRBC 0.00 0 /100 WBCs [facility] ABSOLUTE NRBC 0.00 0 K/uL [facility] Blood 10/26/2021 12:0 0 PM EST 10/26/2021 12:05 PM EST Margarita Hart LEATHER FLESHER LAB BLOOD ORDERABLES Sofía l Result Performing Organization Address City/[facility] Co de Phone Number [address] [address] * Immunoglobulin A (10/26/2021 12:00 PM EST) Pathologist [facility] IgA 164 70 - 400 mg/dL [facility] Blood 10/26/2021 12:0 0 PM EST 10/26/2021 12:05 PM EST [facility] Irma Hart NP LAB BLOOD ORDERABLES Sofía l Result Performing Organization Address [facility] de Phone Number [address] [address] * Tissue transglutaminase IgA (10/26/2021 12:00 PM EST) TTG IGA ANTIBODY <1.2 <4.0 (Negative) U/mL [facility] Blood 10/26/2021 12:0 0 PM EST 10/26/2021 12:06 PM EST [facility] LAB BLOOD ORDERABLES Sofía l Result Performing Organization Address [facility] de Phone Number [facility] [address] [address] [place] [address] documented in this encounter Visit Diagnoses Diagnosis [...] documented as of this encounter Care Teams Review Consultant Relationship Specialty Start Date End Date Harris Lennon MD [address] [place] [address], [address] [place] [address] PCP - General Internal Medicine 01/16/21 Kory Vogt MD [address] [place] [address] Gastroenterology 10/07/21 Xuan Ferraro DO [address] [place] [address] Insurance Assigned Provider 06/09/19 12/19/21 Harris Lennon MD [address] [place] [address] Insurance Assigned Provider 12/17/23 Margarita Davidson RN [address] [place] [address], [address] [address] [email or web address] iCMP Litigation Attorney Associate 06/02/22 06/29/22 Margarita Davidson RN [address] [place] [address], [address] [address] [email or web address] iCMP Litigation Attorney AssociateGraduate Studies Dean 07/01/22 02/17/25 Jyoti Aviles, OT [address] [place] [address] Transitions Litigation Attorney AssociateTip Fixer Therapy 12/12/2312/14/23 documented as of this encounter Additional Source Comments The information contained in this document represents components of the legal health record. It is not the complete legal health record.[facility]
--- OUTSIDE RECORDS SUMMARY | 2025-06-12 14:16 | XMS_ITS | Encounter Summary ---
Author Organization [facility] Address [address] [place] [address] Phone Care Team Providers Care Public Relations Account Supervisor Name Role Phone Xuan Ferraro DO Unavailable [phone] Harris Lennon MD Primary Care Provider [phone] Kory Vogt MD Unavailable Xuan Ferraro DO Unavailable [phone] Harris Lennon MD Unavailable Margarita Davidson RN Unavailable [email or web address] Margarita Davidson RN Unavailable [email or web address] Jyoti Aviles OT Unavailable [phone] Encounter Details Date Type Department Care Team (Late st Contact Info) Description 07/28/2021 Procedure Pass [address] [address] Social History Tobacco Use Types Packs/Day Years [...] Info) Description 04/08/2025 Procedure Pass Echo Lab [address] [place] [address] 07/30/2025 10:45 AM EST Office Visit [facility] [address] [place] [address] [place] [address] Harris Lennon MD [address] [place] [address], [address] [place] [address] 09/09/2025 11:15 AM EST Appointment Echo Lab [address] [place] [address] Stacie Gruber PA-C [address] [place] [address] 09/27/2025 10:40 AM EST Office Visit [facility] [address] [place] [address] 3rd Floor, [address] [place] [address] Davidson Gunter MD [address] [place] [address], [address] [address] 02/14/2026 10:10 AM EDT Office Visit [facility] [address] [place] [address] [place] [address] Talon Seth DO [address] [place] [address] documented as of this encounter Visit Diagnoses [...] documented as of this encounter Care Teams Public Relations Account Supervisor Relationship Specialty Start Date End Date Harris Lennon MD [address] [place] [address], [address] [place] [address] [email or web address] PCP - General Internal Medicine 01/16/21 Xuan Ferraro DO [address] [place] [address] [email or web address] Insurance Assigned Provider 06/09/19 10/06/21 Kory Vogt MD [address] [place] [address] [email or web address] Gastroenterology 10/07/21 Xuan Ferraro DO [address] [place] [address] [email or web address] Insurance Assigned Provider 06/09/19 12/19/21 Harris Lennon MD [address] [place] [address], [address] [place] [address] [email or web address] Insurance Assigned Provider 12/17/23 Margarita Davidson RN [address] [place] [address], [address] [place] [address] [email or web address] iCMP Farmworker Chicken Farm 06/02/22 06/29/22 Margarita Davidson RN [address] [place] [address], [address] [place] [address] [email or web address] iCMP Farmworker Chicken FarmHome Health Clinical Liaison 07/01/22 02/17/25 Jyoti Aviles, OT [address] [place] [address] [email or web address] Transitions Farmworker Chicken FarmGas Operations Superintendent Therapy 12/12/2312/14/23 documented as of this encounter Additional Source Comments The information contained in this document represents components of the legal health record. It is not the complete legal health record.[facility]
--- OUTSIDE RECORDS SUMMARY | 2025-06-12 14:16 | XMS_ITS | Encounter Summary ---
Author Organization [facility] Address [address] [place] [address] Phone Care Team Providers Care Electrolysis Needle Operator Name Role Phone Harris Lennon MD Primary Care Provider [phone] Kory Vogt MD Unavailable Xuan Ferraro DO Unavailable [phone] Harris Lennon MD Unavailable [phone] Margarita Davidson RN Unavailable [email or web address] Margarita Davidson RN Unavailable [email or web address] Jyoti Aviles OT Unavailable [phone] Encounter Details Date Type Department Care Team (Latest Contact Info) Description 11/25/2021 Transcribe Orders [facility] Laboratory [address] [address] Margarita Hart, NIKO 10 [place] [address] Abdominal pain, right lower quadrant (Primary Dx) [...] Info) Description 04/08/2025 Procedure Pass Echo Lab [address] [place] [address] 07/30/2025 10:45 AM EST Office Visit [facility] Medicine [address] [place] [address] [place] [address] Harris Lennon MD [address] [place] [address], [address] [place] [address] 09/09/2025 11:15 AM EST Appointment Echo Lab [address] [place] [address] Stacie Gruber PA-C [address] [place] [address] 09/27/2025 10:40 AM EST Office Visit [facility] [address] [place] [address] 3rd Floor, [address] [place] [address] Davidson Gunter MD [address] [place] [address], [address] [place] [address] 02/14/2026 10:10 AM EDT Office Visit [facility] [address] [place] [address] [place] [address] Talon Seth DO 22 [place] [address] documented as of this encounter Results * (ABNORMAL) Comprehensive metabolic panel (11/25/2021 4:16 PM EDT) SODIUM 128(L) 133 - 146 mmol/L [facility] POTASSIUM 4.4 3.3 - 5.1 mmol/L [facility] CHLORIDE 96 96 - 108 mmol/L [facility] CO2 25 21 - 35 mmol/L [facility] BUN 10 6 - 19 mg/dL [facility] CREATININE 0.50 0.5 - 1.5 mg/dL [facility] GLUCOSE 97 70 - 99 mg/dL [facility] ALBUMIN 4.3 3.9 - 4.8 g/dL [facility] TOTAL PROTEIN 7.3 6.5 - 8.0 g/dL [facility] CALCIUM 9.2 8.4 - 10.3 mg/dL [facility] ALKALINE PHOSPHATASE 62 39 - 117 U/L [facility] TOTAL BILIRUBIN 0.2 0.0 - 1.2 mg/dL [facility] AST 25 0 - 37 U/L [facility] ALT 16 0 - 40 U/L [facility] GLOBULIN 3.0 1 - 4.8 g/dL [facility] EGFR 97 >59 mL/min/1.7 3m2 [facility] Comment:Estimated glomerular filtration rate calculated using the CKD-EPI refit equation. ANION GAP 11 10 - 20 mmol/L [facility] Blood 11/25/2021 4:16 PM EDT 11/25/2021 4:17 PM EDT Margarita Hart NP LAB BLOOD ORDERABLES Sofía hodge Result Performing Organization Address City/State/[facility] Co de Phone Number [address] [address] * (ABNORMAL) CBC and differential (11/25/2021 4:16 PM EDT) WBC 6.38 4.00 - 11.00 K/uL [facility] RBC 3.98 3.72 - 5.30 M/uL [facility] HGB 12.4 11.4 - 15.9 g/dL [facility] HCT 37.2 34.2 - 46.8 % [facility] PLT 277 140 - 430 K/uL [facility] MCV 93.5 78.0 - 97.0 fL [facility] MCH 31.2 25.0 - 33.0 pg [facility] MCHC 33.3 32.0 - 36.0 g/dL [facility] RDW 13.5 11.0 - 16.0 % [facility] MPV 10.2 8.4 - 12.8 fl [facility] NRBC 0.00 0 /100 WBCs [facility] ABSOLUTE NRBC 0.00 0 K/uL [facility] DIFF METHOD Auto [facility] NEUTS 55.3 43.0 - 75.0 % [facility] LYMPHS 25.4 18.2 - 47.4 % [facility] MONOS 13.2(H) 4.00 - 11.00 % [facility] EOS 5.3 0.0 - 8.0 % [facility] BASOS 0.5 0.0 - 2.0 % [facility] Granulocytes, immature (%) 0.3 0.0 - 0.9 % [facility] ABSOLUTE NEUTS 3.53 1.80 - 7.70 K/uL [facility] ABSOLUTE LYMPHS 1.62 1.00 - 3.10 K/uL [facility] ABSOLUTE MONOS 0.84(H) 0.20 - 0.80 K/uL [facility] ABSOLUTE EOS 0.34 0.00 - 0.80 K/uL [facility] ABSOLUTE BASOS 0.03 0.00 - 0.09 K/uL [facility] Granulocytes, immature 0.02 0.00 - 0.05 K/uL [facility] Blood 11/25/2021 4:16 PM EDT 11/25/2021 4:17 PM EDT us Margarita Hart NP LAB BLOOD ORDERABLES Sofía hodge Result [facility] [address] [place] [address] documented in this encounter Visit [...] documented as of this encounter Care Teams Electrolysis Needle Operator Relationship Specialty Start Date End Date Harris Lennon MD [address] [place] [address], [address] [place] [address] [email or web address] PCP - General Internal Medicine 01/16/21 Kory Vogt MD [address] [place] [address] Gastroenterology 10/07/21 Xuan Ferraro DO [address] [place] [address] [email or web address] Insurance Assigned Provider 06/09/19 12/19/21 Harris Lennon MD [address] [place] [address], [address] [place] [address] Insurance Assigned Provider 12/17/23 Margartia Davidson RN [address] [place] [address], [address] [place] [address] [email or web address] iCMP Can Patcher 06/02/22 06/29/22 Margarita Davidson RN [address] [place] [address], [address] [place] [address] [email or web address] iCMP Can PatcherInventory Analyst 07/01/22 02/17/25 Jyoti Aviles, OT [address] [place] [address] Transitions Can PatcherPencil Sorter Therapy 12/12/2312/14/23 documented as of this encounter Additional Source Comments The information contained in this document represents components of the legal health record. It is not the complete legal health record.[facility]
--- OUTSIDE RECORDS SUMMARY | 2025-06-12 14:16 | XMS_ITS | Encounter Summary ---
Author Organization [facility] Address [address] [place] [address] Phone Care Team Providers Care Forest Fire Prevention Manager Name Role Phone Damien Lance MD Primary Care Provide r Xuan Ferraro DO Primary Care Provider + [phone] Damien Lance MD Unavailable [phone] Xuan Ferraro DO Unavailable [phone] Harris Lennon MD Primary Care Provider + [phone] Kory Vogt MD Unavailable Xuan Ferraro DO Unavailable [phone] Harris Lennon MD Unavailable [phone] Margarita Davidson RN Unavailable [email or web address] Margarita Davidson RN Unavailable [email or web address] Jyoti Aviles OT Unavailable [phone] Encounter Details Date Type Department Care Team (Late st Contact Info) Description 03/29/2018 Ancillary Orders [facility] [address] [place] [address] Damien Lance MD [address] [facility] [address] 1 [place] [address] [email or web address] Breast screening Social History Tobacco Use Types [...] Info) Description 04/08/2025 Procedure Pass Echo Lab [address] [place] [address] 07/30/2025 10:45 AM EST Office Visit [address] [place] [address] Harris Lennon MD [address] [place] [address], [address] [place] [address] 09/09/2025 11:15 AM EST Appointment Echo Lab [address] [place] [address] Stacie Gruber PA-C [address] [place] [address] 09/27/2025 10:40 AM EST Office Visit [facility] [address] [place] [address] 3rd Floor, [address] [place] [address] Davidson Gunter MD [address] [place] [address], [address] [place] [address] 02/14/2026 10:10 AM EDT Office Visit [facility] [address] [place] [address] [place] [address] Talon Seth DO [address] [place] [address] [email or web address] documented as of this encounter Results * [...] There are scattered fibroglandular densities. POS - [id number] Narrative 05/11/2018 1:25 PM EDT Full-field digital [...] There are scattered fibroglandular densities. POS - [id number] Damien Lance MD IMG MG EXAMS Final [...] documented as of this encounter Care Teams Forest Fire Prevention Manager Relationship Specialty Start Date End Date Damien Lance MD [email or web address] PCP - General Internal Medicine 07/18/17 09/14/18 Xuan Ferraro DO [address] [place] [address] [email or web address] PCP - General 09/15/18 01/15/21 Harris Lennon MD [address] [facility] [place] [address] [email or web address] PCP - General Internal Medicine 01/16/21 Damien Lance MD [address] [facility] [address] 1 [place] [address] [email or web address] Insurance Assigned Provider 07/16/17 06/09/19 Xuan Ferraro DO [address] [place] [address] Insurance Assigned Provider 06/09/19 10/06/21 Kory Vogt MD [address] [address] [email or web address] Gastroenterology 10/07/21 Xuan Ferraro DO [address] [place] [address] [email or web address] Insurance Assigned Provider 06/09/19 12/19/21 Harris Lennon MD [address] [place] [address], [address] [place] [address] [email or web address] Insurance Assigned Provider 12/17/23 Margarita Davidson RN [address] [place] [address], [address] [place] [address] [email or web address] iCMP Well Drill Operator Helper Cable Tool 06/02/22 06/29/22 Margarita Davidson RN [address] [place] [address], [address] [place] [address] [email or web address] iCMP Well Drill Operator Helper Cable ToolManager Community 07/01/22 02/17/25 Jyoti Aviles, OT [address] [place] [address] [email or web address] Transitions Well Drill Operator Helper Cable ToolDelivery Truck Driver Therapy 12/12/2312/14/23 documented as of this encounter Additional Source Comments The information contained in this document represents components of the legal health record. It is not the complete legal health record.[facility]
--- OUTSIDE RECORDS SUMMARY | 2025-06-12 14:16 | XMS_ITS | Encounter Summary ---
Author Organization [facility] Address [address] [place] [address] Phone Care Team Providers Care Technical Proposal Writer Name Role Phone Harris Lennon MD Primary Care Provider [phone] Kory Vogt MD Unavailable Harris Lennon MD Unavailable [phone] Margarita Davidson RN Unavailable [email or web address] Jyoti Aviles OT Unavailable [phone] Encounter Details Date Type Department Care Team (Late st Contact Info) Description 08/08/2023 Procedure Pass [facility], [address] [address] Social History Tobacco Use Types Packs/Day Years [...] Description 04/08/2025 Procedure Pass Echo Lab [address] [place] [address] 07/30/2025 10:45 AM EST Office Visit [facility] [address] [place] [address] [place] [address] Harris Lennon MD [address] [place] [address], [address] [place] [address] 09/09/2025 11:15 AM EST Appointment Echo Lab [address] [place] [address] Stacie Gruber PA-C [address] [place] [address] 09/27/2025 10:40 AM EST Office Visit [facility] [address] [place] [address] Dr 3rd Floor, [address] [place] [address] Davisdon Gunter MD [address] [place] [address], [address] [place] [address] 02/14/2026 10:10 AM EDT Office Visit [facility] [address] [place] [address] [place] [address] Talon Seth DO 22 [place] [address] documented as of this encounter Visit Diagnoses Not on filedocumented in this encounter Additional Health Concerns Infection Onset Date Last Indicated Resolved Time CoV-Risk 11/16/2023 11/16/2023 11/27/2023 1:21 AM EDT Assessment Noted Time PHQ-9 Depression Total Score: 15 018 2:17 PM EST PHQ-2 Depression Total Score: 0 06/22/20 23 1:25 PM EDT documented as of this encounter Care Teams Technical Proposal Writer Relationship Specialty Start Date End Date Harris Lennon MD [address] [place] [address], [address] [place] [address] PCP - General Internal Medicine 01/16/21 Kory Vogt MD [address] [address] Gastroenterology 10/07/21 Harris Lennon MD [address] [place] [address], [address] [place] [address] Insurance Assigned Provider 12/17/23 Margarita Davidson, RN [address] [place] [address], [address] [place] [address] [email or web address] iCMP Wood Heel CementerFountain Operator 07/01/22 02/17/25 Jyoti Aviles, OT [address] [place] [address] Transitions Wood Heel CementerQuality Controller Therapy 12/12/2312/14/23 documented as of this encounter Additional Source Comments The information contained in this document represents components of the legal health record. It is not the complete legal health record.[facility]
--- OUTSIDE RECORDS SUMMARY | 2025-06-12 14:16 | XMS_ITS | Encounter Summary ---
Author Organization [facility] Address [address] [place] [address] Phone Care Team Providers Care Regional Wildlife Agent Name Role Phone Xuan Ferraro DO Unavailable [phone] Harris Lennon MD Primary Care Provider [phone] Kory Vogt MD Unavailable Xuan Ferraro DO Unavailable [phone] Hraris Lennon MD Unavailable [phone] Margarita Davidson RN Unavailable [email or web address] Margarita Davidson RN Unavailable [email or web address] Jyoti Aviles OT Unavailable [phone] Encounter Details Date Type Department Care Team (Latest Contact Info) Description 07/28/2021 Transcribe Orders Virtual Department 30 [place] [address] Harris Lennon MD [address] [facility], [address] [place] [address] [email or web address] Breast screening (Primary Dx) Social History Tobacco [...] Description 04/08/2025 Procedure Pass Echo Lab [address] [place] [address] 07/30/2025 10:45 AM EST Office Visit [facility] Medicine [address] [place] [address] [place] [address] Harris Lennon MD [address] [place] [address], [address] [place] [address] 09/09/2025 11:15 AM EST Appointment Echo Lab [address] [place] [address] Stacie Gruber PA-C [address] [place] [address] 09/27/2025 10:40 AM EST Office Visit [facility] [address] [place] [address] 3rd Floor, [address] [place] [address] Davidson Gunter MD [address] [place] [address], [address] [place] [address] 02/14/2026 10:10 AM EDT Office Visit [facility] [address] [place] [address] [place] [address] Talon Seth DO 22 [place] [address] documented as of this encounter Results * BI MAMMOGRAM SCREENING WITH TOMOSYNTHESIS WITH CAD (BILATERAL) (10/22/2021 11:13 AM EST) Anatomical Region Laterality Modality Breast Left, Breast Right, Breast Bilateral Bila teral Mammography 10/22/2021 3:19 PM EST Impressions 10/22/2021 3:55 PM EST BILATERAL BREASTS: Benign, no evidence of malignancy. Normal interval follow-up is recommended in 12 months. Bi-RADS: BI-RADS CATEGORY: 2 - Benign finding. DENSITY: There are scattered fibroglandular densities. Narrative 10/22/2021 3:55 PM EST STUDY: Bilateral screening mammography with tomosynthesis and CAD TECHNIQUE: Bilateral full-field digital screening mammography is obtained and read in conjunction with computer-aided detection. Tomosynthesis as well as 2-D C view imaging were obtained. Best possible images according to the technologist notes. COMPARISON: Comparison made to multiple prior, most recent October 31, 2020, and most remote September 16, 2009. BREAST COMPOSITION: There are scattered areas of fibroglandular density RIGHT BREAST: No significant masses, suspicious calcifications or other abnormalities are seen. LEFT BREAST: History of previous biopsy. No significant masses, suspicious calcifications or other abnormalities are seen. Procedure Note Christelle Hernandez MD - 10/22/2021 STUDY: Bilateral screening mammography with tomosynthesis and CAD TECHNIQUE: Bilateral full-field digital screening mammography is obtainedand read in conjunction with computer-aided detection. Tomosynthesis aswell as 2-D C view imaging were obtained. Best possible images accordingto the technologist notes. COMPARISON: Comparison made to multiple prior, most recent October, and most remote September 16, 2009. BREAST COMPOSITION: There are scattered areas of fibroglandulardensity RIGHT BREAST: No significant masses, suspicious calcifications or otherabnormalities are seen. LEFT BREAST: History of previous biopsy. No significant masses,suspicious calcifications or other abnormalities are seen. IMPRESSION: BILATERAL BREASTS: Benign, no evidence of malignancy. Normal intervalfollow-up is recommended in 12 months. Bi-RADS: BI-RADS CATEGORY: 2 - Benign finding. DENSITY: [...] documented as of this encounter Care Teams Regional Wildlife Agent Relationship Specialty Start Date End Date Harris Lennon MD [address] [place] [address], [address] [place] [address] [email or web address] PCP - General Internal Medicine 01/16/21 Xuan Ferraro DO 9 [place] [address] .[employer] Insurance Assigned Provider 06/09/19 10/06/21 Kory Vogt MD [address] [place] [address] [email or web address] 10/07/21 Xuan Ferraro DO [address] [place] [address] [email or web address] Insurance Assigned Provider 06/09/19 12/19/21 Harris Lennon MD [address] [place] [address], [address] [place] [address] [email or web address] Insurance Assigned Provider 12/17/23 Margarita Davidson RN [address] [facility], [address] [place] [address] [email or web address] iCMP Life Sciences Instructor 06/02/22 06/29/22 Margarita Davidson RN [address] [place] [address], [address] [place] [address] [email or web address] iCMP Life Sciences InstructorDomestic Cleaner 07/01/22 02/17/25 Jytoi Aviles, OT [address] [place] [address] [email or web address] Transitions Life Sciences InstructorTransitional Studies Instructor Therapy 12/12/2312/14/23 documented as of this encounter Additional Source Comments The information contained in this document represents components of the legal health record. It is not the complete legal health record.[facility]
--- OUTSIDE RECORDS SUMMARY | 2025-06-12 14:16 | XMS_ITS | Encounter Summary ---
Author Organization [facility] Address [address] [place] [address] Phone Care Team Providers Care Flexographic Printing Machinist Name Role Phone Xuan Ferraro DO Primary Care Provider + [phone] Xuan Ferraro DO Unavailable [phone] Harris Lennon MD Primary Care Provider + [phone] Kory Vogt MD Unavailable Xuan Ferraro DO Unavailable [phone] Harris Lennon MD Unavailable [phone] Margarita Davidson RN Unavailable [email or web address] Margarita Davidson RN Unavailable [email or web address] Jyoti Aviles OT Unavailable Reason for Referral * MRI/CAT Scan - Closed Specialty Diagnoses / Procedures Referred By Kelvin t Referred To Contact Radiology Diagnoses Low back pain, unspecified back pain laterality, unspecified chronicity, unspecified whether sciatica present Procedures CT Lumbar Spine John Cook DO Phone: tel: fax: [email or web address] Referral ID Status Reason Start Date Expiration Date Visits Re quested Visits Authorized [id number] Closed 07/02/2020 07/02/2021 1 1 Encounter Details Date Type Department Care Team (Latest Contact Info) Description 07/02/2020 Transcribe Orders Virtual Department 30 [place] [address] John Cook, [address] [place] [address] [email or web address] Low back pain, unspecified back pain laterality, [...] Description 04/08/2025 Procedure Pass Echo Lab [address] [place] [address] 07/30/2025 10:45 AM EST Office Visit [address] [place] [address] Harris Lennon MD [address] [place] [address], [address] [place] [address] 09/09/2025 11:15 AM EST Appointment Echo Lab [address] [place] [address] Stacie Gruber PA-C [address] [place] [address] 09/27/2025 10:40 AM EST Office Visit [facility] [address] [facility] 3rd Floor, [address] [place] [address] Davidson Gunter MD 22 [facility], [address] [place] [address] 02/14/2026 10:10 AM EDT Office Visit [facility] [address] [place] [address] Talon Seth DO 22 [place] [address] [email or web address] [...] spine.. Multilevel degenerative changes as described above. oJhn Cook DO IMG CT XSPECIALTY ORDERABLES Final [...] documented as of this encounter Care Teams Flexographic Printing Machinist Relationship Specialty Start Date End Date Xuan Ferraro DO [address] [place] [address] [email or web address] PCP - General 09/15/18 01/15/21 Harris Lennon MD [address] [place], [place] [address] [place] [address] [email or web address] PCP - General Internal Medicine 01/16/21 Xuan Ferraro DO [address] [place] [address] [email or web address] Insurance Assigned Provider 06/09/19 10/06/21 Kory Vogt MD [address] [place] [address] [email or web address] Gastroenterology 10/07/21 Xuan Ferraro DO [address] [place] [address] [email or web address] Insurance Assigned Provider 06/09/19 12/19/21 Harris Lennon MD [address] [place] [address], [address] [place] [address] [email or web address] Insurance Assigned Provider 12/17/23 Margarita Davidson RN [address] [place] [address], [address] [place] [address] [email or web address] iCMP Calculation Clerk 06/02/22 06/29/22 Margarita Davidson RN [address] [place] [address], [address] [place] [address] [email or web address] iCMP Calculation ClerkPuncher And Fastener 07/01/22 02/17/25 Jyoti Aviles, OT [address] [place] [address] [email or web address] Transitions Calculation ClerkSpice Grinder Therapy 12/12/2312/14/23 documented as of this encounter Additional Source Comments The information contained in this document represents components of the legal health record. It is not the complete legal health record.[facility]
--- OUTSIDE RECORDS SUMMARY | 2025-06-12 14:16 | XMS_ITS | Encounter Summary ---
Author Organization [facility] Address [address] [place] [address] Phone Care Team Providers Care Road Consultant Name Role Phone Harris Lennon MD Primary Care Provider [phone] Kory Vogt MD Unavailable Harris Lennon MD Unavailable [phone] Margarita Davidson RN Unavailable [email or web address] Jyoti Aviles OT Unavailable [phone] Encounter Details Date Type Department Care Team (Latest Contact Info) Description 08/08/2023 Transcribe Orders Virtual Department [address] [place], [place] [id number] Harris Lennon MD 22 [facility], [address] [place] [address] [email or web address] Breast screening (Primary Dx) Social [...] Description 04/08/2025 Procedure Pass Echo Lab [address] [place] [address] 07/30/2025 10:45 AM EST Office Visit [facility] [address] [place] [address] [place] [address] Harris Lennon MD [address] [place] [address], [address] [place] [address] 09/09/2025 11:15 AM EST Appointment Echo Lab [address] [place] [address] Stacie Gruber PA-C [address] [place] [address] 09/27/2025 10:40 AM EST Office Visit [facility] [address] [place] [address] [address]rd Floor, [address] [place] [address] Davidson Gunter MD [address] [place] [address], [address] [place] [address] 02/14/2026 10:10 AM EDT Office Visit [facility] [address] [place] [address] [place] [address] Talon Seth DO 22 [place] [address] documented as of this encounter Results * [...] documented as of this encounter Care Teams Road Consultant Relationship Specialty Start Date End Date Harris Lennon MD [address] [place] [address], [address] [place] [address] PCP - General Internal Medicine 01/16/21 Kory Vogt MD [address] [place] [address] Gastroenterology 10/07/21 Harris Lennon MD [address] [place] [address], [address] [place] [address] Insurance Assigned Provider 12/17/23 Margarita Davidson, RN [address] [place] [address], [address] [place] [address] iCMP Equipment EngineerManager Performance 07/01/22 02/17/25 Jyoti Aviles, OT 30 [place] [address] Transitions Equipment EngineerForm Worker Therapy 12/12/2312/14/23 documented as of this encounter Additional Source Comments The information contained in this document represents components of the legal health record. It is not the complete legal health record.[facility]
--- OUTSIDE RECORDS SUMMARY | 2025-06-12 14:16 | XMS_ITS | Clinical Summary ---
Author Organization [facility] Address [address] [place] [address] Phone Care Team Providers Care Spooler Name Role Phone Harris Lennon MD Primary Care Provider [phone] Kory Vogt MD Unavailable Harris Lennon MD Unavailable [phone] Allergies Active Allergy Reactions Criticality Noted Date [...] by mouth daily. 04/04/20 25 025 Discontin ued(Reord er) Active Problems Problem Noted Date Diagnosed Date [...] gradient less than 15 mmHg. Holter monitor 2017 was essentially normal with an average rate of 60. Abdominal ultrasound 2016 with chronic dissection, stable relative to CT scanning. CT scan 2017 remains stable with no aneurysm formation of the chronic dissection. 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 The patient will meet with Dr. Skelton in the [facility] system for continued management of her aortic [...] 2016. She remains asymptomatic. She follows with [facility] Dr. Skelton whom she most recently saw [...] this 30 minute visit was spent in [id number] conversation with the patient going over her [...] Overview (10/07/2021): Medications managed by psychiatrist in [place] Assessment & Plan (03/07/2025 11:10 AM EDT): [...] bone density. I recommend she contact her cafeteria assistant and follow-up as planned. Assessment & Plan [...] hospital encounter of 05/18/19 (from the past 66167 hour(s)) DXA Monitoring Addendum: 05/25/2019 In addition [...] hospital encounter of 05/18/19 (from the past 99057 hour(s)) DXA Monitoring Addendum: 05/25/2019 In addition [...] hospital encounter of 05/18/19 (from the past 85674 hour(s)) DXA Monitoring Addendum: 05/25/2019 In addition [...] hospital encounter of 05/18/19 (from the past 00904 hour(s)) DXA Monitoring Addendum: 05/25/2019 In addition [...] fibrillation 07/18/2017 Overview (02/15/2022): Anticoagulation managed by [facility] clinic Assessment & Plan (04/10/2025 7:07 [...] be extracted. I recommend she see [facility] for second opinion regarding oral surgery. If [...] good shock absorption. Dizziness and giddiness 11/25/2018 05/0 12/2019 Assessment & Plan (11/29/2018 5:12 PM EDT): [...] fluids - Supportive care Supratherapeutic INR 10/12/2017 05//2 021 Assessment & Plan (10/13/2017 3:35 PM [...] Department Care Team Description 05/21/2025 Orders Only [address] [place] [address] Gary Bashir MD 05/14/2025 Refill [facility] [address] [place] [address] 3rd Floor, [address] [place] [address] Stacie Gruber PABrendaC Medication Refill 05/02/2025 4:15 PM EDT Office Visit [facility] [address] [place] [address] Chan Cruz MD Primary localized osteoarthrosis of left lower leg (Primary Dx); Left knee pain 05/02/2025 10:30 AM EDT Telemedicine - audio only [address] [place] [address] Anastacia Velasquez, [place] Essential hypertension (Primary Dx); Primary osteoarthritis of both knees 04/15/[address] [place] [address] Harris Lennon MD calll back ( Citlalli Juares wants pt off medication for 3 days, Alyse is questioning this due to the pt being a high risk of stroke. Pt is having a left knee injection. Please give Alyse a callback for more information at [phone] ) 04/12/[address] [place] [address] Nida Lr Medication Refill 04/09/2025 10:15 AM EDT Office Visit [facility] [address] [place] [address] Harris Lennon MD Primary osteoarthritis of both knees (Primary Dx); Hypercholesterolemia ; Essential hypertension 04/08/2025 12:30 PM EDT Office Visit [facility] [address] 3rd Floor, [address] [place] [address] Stacie Gruber PA-C Presence of prosthetic heart valve (Primary Dx); History of aortic valve replacement with porcine valve; Paroxysmal atrial fibrillation; Dissecting aortic aneurysm, abdominal; Essential hypertension; Hypercholesterolemia 04/08/2025 Telephone [facility] [address] [place] [address] Harris Lennon MD Appointment 04/06/[address] 3rd Floor, [address] [place] [address] Masha Montano DNP Medication Refill 04/04/2025 10:00 AM EDT Telemedicine [address] [place] [address] Anastacia Velasquez CNP Essential hypertension (Primary Dx); Pain and swelling of left knee 03/18/2025 10:10 AM EDT Office Visit [facility] [address] [place] [address] Jazzmine Seth DO Other osteoporosis without current pathological fracture (Primary Dx) from Last 3 Months Immunizations Immunization Administration [...] Info) Description 04/08/2025 Procedure Pass Echo Lab [address] [place] [address] 07/30/2025 10:45 AM EST Office Visit [facility] [address] [place] [address] Harris Lennon MD [address] [place] [address], [address] [place] [address] 09/09/2025 11:15 AM EST Appointment Echo Lab [address] [place] [address] Stacie Gruber PA-C [address] [place] [address] 09/27/2025 10:40 AM EST Office Visit [facility] [address] [place] [address] 3rd Floor, [address] [place] [address] Davidson Gunter MD [address] [place] [address], [address] [place] [address] 02/14/2026 10:10 AM EDT Office Visit [facility] [address] [place] [address] [place] [address] Jazzmine Seth DO [address] [place] [address] [email or web address] Health Maintenance Due Date Last Done Comments [...] this topic Medical Devices Implanted Type Area Director Of Advertising Sales Device Identifier Shelf Expiration Date Model / [...] RESULT ENTRY ONLY (05/01/2025 10:19 AM EDT) Historical Provider MD HEALTH MAINTENANCE Edited Result - Final * BD DXA HIP AND FOREARM (03/11/2025 11:16 AM EDT) Anatomical Region Laterality Modality Bone Density Bone Density 03/11/2025 11:1 4 AM EDT Impressions 03/12/2025 10:13 AM EDT Interpretation: Osteoporosis. Narrative 03/12/2025 10:13 AM EDT Referred By: JAZZMINE SETH Indications: Osteoporosis Scanner: MyWedding A with serial# of [id number] located at [facility] Bone Density Scan (DXA) 03/11/25 Details [...] -2.5), or Osteoporosis (T-score <= -2.5). At [facility], T-scores are compared to peak bone [...] Referred By: JAZZMINE SETH Indications: Osteoporosis Scanner: MyWedding A with serial# of [id number] located at [facility] Bone Density Scan (DXA) 03/11/25 Details [...] -2.5), or Osteoporosis (T-score <= -2.5). At [facility], T-scores are compared to peak bone [...] BONE DENSITY DEXA Final R esult * Renal panel (03/06/2025 7:59 AM EDT) SODIUM 140 133 - 146 mmol/L [facility] POTASSIUM 4.7 3.3 - 5.1 mmol/L [facility] CHLORIDE 104 96 - 108 mmol/L [facility] CO2 25 21 - 35 mmol/L [facility] GLUCOSE 99 70 - 99 mg/dL [facility] BUN 16 6 - 19 mg/dL [facility] CREATININE 0.80 0.5 - 1.5 mg/dL [facility] CALCIUM 10.0 8.4 - 10.3 mg/dL [facility] PHOSPHORUS 3.4 2.7 - 4.5 mg/dL [facility] ALBUMIN 4.1 3.9 - 4.8 g/dL [facility] EGFR 74 >59 mL/min/1.7 3m2 [facility] Comment:Estimated glomerular filtration rate calculated using the CKD-EPI refit equation. ANION GAP 16 10 - 20 mmol/L [facility] Blood 03/06/2025 7:59 AM EDT 03/06/2025 8:05 AM EDT us Jazzmine Seth DO LAB BLOOD ORDERABLES Final Resul t Performing Organization Address City/[facility]/ZIP Co de Phone Number [address] [address] * (ABNORMAL) Lipid panel (01/17/2019 7:43 AM EDT) HDL 69 mg/dL [facility] Comment: Interpretation <40 mg/dL: Low HDL cholesterol (major risk factor for CHD) Greater than or equal to 60 mg/dL: High HDL cholesterol ( negative risk factor for CHD) HDL - cholesterol is affected by a number of factors, e.g. smoking, excerise, hormones, sex and age. CHOLESTEROL 168 0 - 240 mg/dL [facility] TRIGLYCERIDES 68 30 - 160 mg/dL [facility] LDL 85 50 - 129 mg/dL [facility] Comment: LDL levels in terms of risk for coronary heart disease: <100 mg/dL: Optimal 100-129 mg/dL: Near or above optimal 130-159 mg/dL: Borderline high 160-189 mg/dL: High >190 mg/dL: Very High CARDIAC RISK RATIO 2.4(L) 3.3 - 4.4 [facility] Blood 01/17/2019 7:43 AM EDT 01/17/2019 7:46 AM EDT us Xuan Ferraro DO LAB BLOOD ORDERABLES Final Result Performing Organization Address City/[facility]/ZIP Co de Phone Number [address] [address] from Last 3 Months or Most Recently Relevant to Health Maintenance Insurance MEDICARE PART A & B [employer] MEDEX SUPPLEMENT MEDICARE PART A & B [employer] MEDEX SUPPLEMENT MEDICARE PART A & B [employer] MEDEX SUPPLEMENT MEDICARE PART A & B [employer] MEDEX SUPPLEMENT MEDICARE PART A & B [facility] MEDEX SUPPLEMENT MEDICARE PART A & B [employer] MEDEX SUPPLEMENT MEDICARE PART A & B [employer] MEDEX SUPPLEMENT MEDICARE PART A & B [employer] MEDEX SUPPLEMENT MEDICARE PART A & B [employer] MEDEX SUPPLEMENT Advance Directives For more information, please contact: [phone] (9AM - 5PM [facility], Tuesday-Tuesday) * DNR/DNI (No CPR/No Intubation) (Latest Code Status on File) Date Activated Date Inactivated Comments 12/09/2023 7:13 PM Question Answer Comments Code Status Confirmed With: Patient Code Discussion Comments: per d/w patient 4 * Full Code (Confirmed) Date Activated Date Inactivated Comments 10/12/2017 7:49 PM 10/14/2017 2:44 PM Question Answer Comments Code Discussion Comments: patient Care Teams Spooler Relationship Specialty Start Date End Date Harris Lennon MD [address] [place] [address], [address] [place] [address] PCP - General Internal Medicine 01/16/21 Kory Vogt MD [address] [place] [address] Gastroenterology 10/07/21 Harris Lennon MD [address] [place] [address], [address] [place] [address] Insurance Assigned Provider 12/17/23 Additional Source Comments The information contained in this document represents components of the legal health record. It is not the complete legal health record.[facility]
--- OUTSIDE RECORDS SUMMARY | 2025-06-12 14:16 | XMS_ITS | Encounter Summary ---
Author Organization [facility] Address [address] [place] [address] Phone Care Team Providers Care Director Shopper Marketing Name Role Phone Harris Lennon MD Primary Care Provider [phone] Kory Vogt MD Unavailable Xuan Ferraro DO Unavailable [phone] Harris Lennon MD Unavailable [phone] Margarita Davidson RN Unavailable [email or web address] Margarita Davidson RN Unavailable [email or web address] Jyoti Aviles OT Unavailable [phone] Encounter Details Date Type Department Care Team (Late st Contact Info) Description 11/26/2021 Procedure Pass [facility], Ct Scan - [address] [address] Social History Tobacco Use Types Packs/Day Years [...] Info) Description 04/08/2025 Procedure Pass Echo Lab [address] [place] [address] 07/30/2025 10:45 AM EST Office Visit [facility] [address] [place] [address] [place] [address] Harris Lennon MD [address] [place] [address], [address] [place] [address] 09/09/2025 11:15 AM EST Appointment Echo Lab [address] [place] [address] Stacie Gruber PA-C [address] [place] [address] 09/27/2025 10:40 AM EST Office Visit [facility] [address] [place] [address] Dr 3rd Floor, [address] [place] [address] Davidson Gunter MD [address] [place] [address], [address] [place] [address] 02/14/2026 10:10 AM EDT Office Visit [facility] [address] [place] [address] [place] [address] Talon Seth DO [address] [place] [address] documented as of this encounter Visit Diagnoses [...] as of this encounter Care Teams Director Shopper Marketing Relationship Specialty Start Date End Date Harris Lennon MD [address] [place] [address], [address] [place] [address] PCP - General Internal Medicine 01/16/21 Kory Vogt MD [address] [place] [address] Gastroenterology 10/07/21 Xuan Ferraro DO [address] [place] [address] [email or web address] Insurance Assigned Provider 06/09/19 12/19/21 Harris Lennon MD [address] [place] [address], [address] [place] [address] Insurance Assigned Provider 12/17/23 Margarita Davidson RN [address] [place] [address], [address] [address] [email or web address] iCMP Mobile Heavy Equipment Operator 06/02/22 06/29/22 Margarita Davidson RN [address] [place] [address], [address] [place] [address] [email or web address] iCMP Mobile Heavy Equipment OperatorLandcare Officer 07/01/22 02/17/25 Jyoti Aviles, OT [address] [place] [address] Transitions Mobile Heavy Equipment OperatorStaff Genetic Counselor Therapy 12/12/2312/14/23 documented as of this encounter Additional Source Comments The information contained in this document represents components of the legal health record. It is not the complete legal health record.[facility]
--- OUTSIDE RECORDS SUMMARY | 2025-06-12 14:16 | XMS_ITS | Encounter Summary ---
Author Organization [facility] Address [address] [place] [address] Phone Care Team Providers Care Manager Community Development Name Role Phone Harris Lennon MD Primary Care Provider [phone] Kory Vogt MD Unavailable Xuan Ferraro DO Unavailable [phone] Harris Lennon MD Unavailable [phone] Margarita Davidson RN Unavailable [email or web address] Margarita Davidson RN Unavailable [email or web address] Jyoti Aviles OT Unavailable [phone] Reason for Referral * MRI/CAT Scan - Closed Specialty Diagnoses / Procedures Referred By Contac t Referred To Contact Radiology Diagnoses RLQ abdominal pain Procedures CT Abdomen/Pelvis Margarita Hart NP Phone: tel: fax: Referral ID Status Reason Start Date Expiration Date Visits Re quested Visits Authorized [id number] Closed 11/26/2021 11/26/2022 1 1 Encounter Details Date Type Department Care Team (Latest Contact Info) Description 11/26/2021 Transcribe Orders Virtual Department 30 [place], [place] [phone] Margarita Hart NP [address] [place] [phone] RLQ abdominal pain (Primary Dx) Social History [...] Info) Description 04/08/2025 Procedure Pass Echo Lab [address] [place] [address] 07/30/2025 10:45 AM EST Office Visit [facility] [place] [facility] [address] [place] [address] [place] [address] Harris Lennon MD [address] [place] [address], [address] [place] [address] 09/09/2025 11:15 AM EST Appointment Echo Lab [address] [place] [address] Stacie Gruber PA-C [address] [place] [address] 09/27/2025 10:40 AM EST Office Visit [facility] [address] [place] [address] [address]rd Floor, [address] [place] [address] Davidson Gunter MD [address] [place] [address], [address] [place] [address] 02/14/2026 10:10 AM EDT Office Visit [facility] [address] [place] [address] [place] [address] Talon Seth, DO [address] [place] [address] [email or web address] documented as of this encounter Results * [...] of cystitis. POS - [id number] Margarita Hart COMPOSITION SIDING WORKER IMG CT ABD/PELVIS Final R esult documented [...] documented as of this encounter Care Teams Manager Community Development Relationship Specialty Start Date End Date Harris Lennon MD [address] [place] [address], [address] [place] [address] [email or web address] PCP - General Internal Medicine 01/16/21 Kory Vogt MD [address] [address] [email or web address] Gastroenterology 10/07/21 Xuan Ferraro DO [address] [place] [address] [email or web address] Insurance Assigned Provider 06/09/19 12/19/21 Harris Lennon MD [address] [place] [address], [address] [place] [address] [email or web address] Insurance Assigned Provider 12/17/23 Margarita Davidson, MARIZOL [address] [place] [address], [address] [place] [address] [email or web address] iCMP Building Consultant 06/02/22 06/29/22 Margarita Davidson, RN [address] [facility], [address] [place] [address] [email or web address] iCMP Building ConsultantEmployment Consultant 07/01/22 02/17/25 Jyoti Aviles, OT [address] [place] [address] [email or web address] Transitions Building ConsultantFinish Mender Therapy 12/12/2312/14/23 documented as of this encounter Additional Source Comments The information contained in this document represents components of the legal health record. It is not the complete legal health record.[facility]
--- OUTSIDE RECORDS SUMMARY | 2025-06-12 14:16 | XMS_ITS | Encounter Summary ---
Author Organization [facility] Address [address] [place] [address] Phone Care Team Providers Care Telecommunications Administrator Name Role Phone Xuan Ferraro DO Unavailable [phone] Harris Lennon MD Primary Care Provider [phone] Kory Vogt MD Unavailable Xuan Ferraro DO Unavailable [phone] Harris Lennon MD Unavailable [phone] Margarita Davidson RN Unavailable [email or web address] Margarita Davidson RN Unavailable [email or web address] Jyoti Aviles OT Unavailable [phone] Encounter Details Date Type Department Care Team (Late st Contact Info) Description 05/20/2021 Procedure Pass [facility], Ct Scan - [address] [address] Social History Tobacco Use Types Packs/Day Years [...] 11:28 AM EDT Chloe Robles RN * [place] Suicide Severity Rating Scale (Screener/Recent Self-Report) Question [...] Description 04/08/2025 Procedure Pass Echo Lab [address] [place] [address] 07/30/2025 10:45 AM EST Office Visit [facility] [address] [place] [address] [place] [address] Harris Lennon MD [address] [place] [address], [address] [place] [address] 09/09/2025 11:15 AM EST Appointment Echo Lab [address] [place] [address] Stacie Gruber PA-C [address] [place] [address] 09/27/2025 10:40 AM EST Office Visit [facility] [address] [place] [address] 3rd Floor, [address] [place] [address] Davidson Gutner MD [address] [place] [address], [address] [place] [address] 02/14/2026 10:10 AM EDT Office Visit [facility] [address] [place] [address] [email or web address] documented as of this encounter Visit Diagnoses [...] documented as of this encounter Care Teams Telecommunications Administrator Relationship Specialty Start Date End Date Harris Lennon MD [address] [place] [address] [address] [place] [address] [email or web address] PCP - General Internal Medicine 01/16/21 Xuan Ferraro DO [address] [place] [address] [email or web address] Insurance Assigned Provider 06/09/19 10/06/21 Kory Vogt MD [address] [place] [address] [email or web address] Gastroenterology 10/07/21 Xuan Ferraro DO [address] [place] [address] [email or web address] Insurance Assigned Provider 06/09/19 12/19/21 Harris Lennon MD [address] [place], [place] [address] [place] [address] [email or web address] Insurance Assigned Provider 12/17/23 Margarita Davidson RN [address] [facility], [address] [place] [address] [email or web address] iCMP Channel Rougher 06/02/22 06/29/22 Margarita Davidson RN [address] [place] [address], [address] [place] [address] [email or web address] iCMP Channel RougherAccount Receivable Clerk 07/01/22 02/17/25 Jyoti Aviles, OT [address] [place] [address] [email or web address] Transitions Channel RougherButter Wrapper Therapy 12/12/2312/14/23 documented as of this encounter Additional Source Comments The information contained in this document represents components of the legal health record. It is not the complete legal health record.[facility]
--- OUTSIDE RECORDS SUMMARY | 2025-06-12 14:16 | XMS_ITS | Encounter Summary ---
Author Organization [facility] Address [address] [place] [address] Phone Care Team Providers Care Registrar Assistant Name Role Phone Xuan Ferraro DO Primary Care Provider + [phone] Xuan Ferraro DO Unavailable [phone] Harris Lennon MD Primary Care Provider Kory Vogt MD Unavailable Xuan Ferraro DO Unavailable [phone] Harris Lennon MD Unavailable [phone] Margarita Davidson RN Unavailable [email or web address] Margarita Davidson RN Unavailable [email or web address] Jyoti Aviles OT Unavailable [phone] Reason for Referral * MRI/CAT Scan - Closed Specialty Diagnoses / Procedures Referred By Kelvin waddell Referred To Contact Radiology Diagnoses Weakness of lower extremity, unspecified laterality Procedures MRI Thoracic Spine John Cook DO Phone: tel: fax: mailto:[email or web address] Referral ID Status Reason Start Date Expiration Date Visits Re quested Visits Authorized [id number] Closed 05/23/2020 05/23/2021 1 1 * MRI/CAT Scan - Closed Specialty Diagnoses / Procedures Referred By Contac t Referred To Contact Radiology Diagnoses Weakness of left lower extremity Procedures MRI Lumbar Spine John Cook DO Phone: tel: fax: mailto:[email or web address] Referral ID Status Reason Start Date Expiration Date Visits Re quested Visits Authorized [id number] Closed 05/23/2020 05/23/2021 1 1 Encounter Details Date Type Department Care Team (Late st Contact Info) Description 05/23/2020 Ancillary Orders Virtual Department [address] [place] [address] John Cook DO [address] [place] [address] [email or web address] Weakness of left lower extremity; Weakness of [...] Description 04/08/2025 Procedure Pass Echo Lab [address] [place] [address] 07/30/2025 10:45 AM EST Office Visit [facility] [address] [place] [address] [place] [address] Harris Lennon MD [address] [place] [address], [address] [place] [address] 09/09/2025 11:15 AM EST Appointment [facility] [place] [place] [address] Stacie Gruber PA-C [address] [place] [address] 09/27/2025 10:40 AM EST Office Visit [facility] [address] [place] [address] 3rd Floor, [address] [place] [address] Davidson Gunter MD 22 [facility], [address] [address] 02/14/2026 10:10 AM EDT Office Visit [facility] [address] [place] [address] [place] [address] Talon Seth DO 22 [place] [address] documented as of this encounter Results * [...] stenosis has improved from previous MR study [id number]. L3-4: No disc herniation. No significant canal [...] documented as of this encounter Care Teams Registrar Assistant Relationship Specialty Start Date End Date Xuan Ferraro DO [address] [place] [address] [email or web address] PCP - General 09/15/18 01/15/21 Harris Lennon MD [address] [place] [address], [address] [place] [address] PCP - General Internal Medicine 01/16/21 Xuan Ferraro DO [address] [place] [address] [email or web address] Insurance Assigned Provider 06/09/19 10/06/21 Kory Vogt MD [address] [place] [address] [email or web address] Gastroenterology 10/07/21 Xuan Ferraro DO [address] [place] [address] [email or web address] Insurance Assigned Provider 06/09/19 12/19/21 Harris Lennon MD [address] [place] [address], [address] [place] [address] [email or web address] Insurance Assigned Provider 12/17/23 Margarita Davidson RN [address] [place] [address], [address] [place] [address] [email or web address] iCMP Material Assistant 06/02/22 06/29/22 Margarita Davidson RN [address] [place] [address], [address] [place] [address] iCMP Material AssistantChief Operations Officer 07/01/22 02/17/25 Jyoti Aviles, OT [address] [place] [address] [email or web address] Transitions Material AssistantMetal Furniture Assembly Supervisor Therapy 12/12/2312/14/23 documented as of this encounter Additional Source Comments The information contained in this document represents components of the legal health record. It is not the complete legal health record.[facility]
--- OUTSIDE RECORDS SUMMARY | 2025-06-12 14:16 | XMS_ITS | Encounter Summary ---
Author Organization [facility] Address [address] [place] [address] Phone Care Team Providers Care Acid Purification Equipment Operator Name Role Phone Harris Lennon MD Primary Care Provider [phone] Kory Vogt MD Unavailable Harris Lennon MD Unavailable Margarita Davidson RN Unavailable [email or web address] Jyoti Aviles OT Unavailable [phone] Encounter Details Date Type Department Care Team (Late st Contact Info) Description 12/09/2023 Procedure Pass [facility], [address] [address] Social History Tobacco Use Types Packs/Day Years [...] 9:00 PM EDT Bethany Camejo, MARIZOL * [place] Suicide Severity Rating Scale (Screener/Recent Self-Report) Question [...] Description 04/08/2025 Procedure Pass Echo Lab [address] [place] [address] 07/30/2025 10:45 AM EST Office Visit [facility] [address] [place] [address] Harris Lennon MD [address] [place] [address], [address] [place] [address] 09/09/2025 11:15 AM EST Appointment Echo Lab [address] [place] [address] Stacie Gruber PA-C [address] [place] [address] 09/27/2025 10:40 AM EST Office Visit [facility] [address] [place] [address] 3rd Floor, [address] [place] [address] Davidson Gunter MD [address] [place] [address], [address] [place] [address] 02/14/2026 10:10 AM EDT Office Visit [facility] 22 [place] [address] Talon Seth DO 22 [place] [address] documented as of this encounter Visit Diagnoses Not on filedocumented in this encounter Additional Health Concerns Assessment Noted Time PHQ-9 Depression Total Score: 15 018 2:17 PM EST PHQ-2 Depression Total Score: 0 06/22/20 23 1:25 PM EDT documented as of this encounter Care Teams Acid Purification Equipment Operator Relationship Specialty Start Date End Date Harris Lennon MD [address] [place] [address], [address] [place] [address] PCP - General Internal Medicine 01/16/21 Kory Vogt MD [address] [place] [address] Gastroenterology 10/07/21 Harris Lennon MD [address] [place] [address], [address] [place] [address] Insurance Assigned Provider 12/17/23 Margarita Davidson RN [address] [place] [address], [address] [place] [address] [email or web address] iCMP Petroleum Terminal Plant OperatorHogshead Salvage 07/01/22 02/17/25 Jyoti Aviles, OT [address] [place] [address] [email or web address] Transitions Petroleum Terminal Plant OperatorHairspring Cutter Therapy 12/12/2312/14/23 documented as of this encounter Additional Source Comments The information contained in this document represents components of the legal health record. It is not the complete legal health record.[facility]
--- OUTSIDE RECORDS SUMMARY | 2025-06-12 14:16 | XMS_ITS | Encounter Summary ---
Author Organization [facility] Address [address] [place] [address] Phone Care Team Providers Care Trimming Press Operator Name Role Phone Xuan Ferraro DO Primary Care Provider + [phone] Xuan Ferraro DO Unavailable [phone] Harris Lennon MD Primary Care Provider Kory Vogt MD Unavailable Xuan Ferraro DO Unavailable [phone] Harris Lennon MD Unavailable [phone] Margarita Davidson RN Unavailable [email or web address] Margarita Davidson RN Unavailable [email or web address] Jyoti Aviles OT Unavailable [phone] Reason for Referral * Physical Therapy (Elective) - Closed Specialty Diagnoses / Procedures Referred By Kelvin waddell Referred To Contact Physical Therapy Diagnoses Encounter for rehabilitation PELVIC FLOOR , Urinary and Fecal Incontinence Maritza Rodriguez NP Phone: tel: fax: [address] [address] Phone: tel: Referral ID Status Reason Start Date Expiration Date Visits Re quested Visits Authorized [id number] Closed 07/15/2020 09/11/2020 99 99 Encounter Details Date Type Department Care Team (Latest Contact Info) Description 07/10/2020 Transcribe Orders [facility] [address] [place] [address] Maritza Rodriguez, QUANTITATIVE SOFTWARE ENGINEER [address] [facility] [place] [address] Encounter for rehabilitation (Primary Dx) Social History [...] Description 04/08/2025 Procedure Pass Echo Lab [address] [place] [address] 07/30/2025 10:45 AM EST Office Visit [address] [place] [address] Harris Lennon MD [address] [place] [address], [address] [place] [address] 09/09/2025 11:15 AM EST Appointment Echo Lab [address] [place] [address] Stacie Gruber PA-C [address] [place] [address] 09/27/2025 10:40 AM EST Office Visit [facility] [address] [place] [address] 3rd Floor, [address] [place] [address] Davidson Gunter MD 22 [facility], [address] [place] [address] 02/14/2026 10:10 AM EDT Office Visit [facility] [address] [place] [address] Talon Seth DO [address] [place] [address] [email or web address] Scheduled Referrals Name Type Priority Associated Diagnoses Orde r Schedule Ambulatory referral to [facility] Physical Therapy Outpatient Referral Routine Encounter [...] documented as of this encounter Care Teams Trimming Press Operator Relationship Specialty Start Date End Date Xuan Ferraro DO [address] [place] [address] [email or web address] PCP - General 09/15/18 01/15/21 Harris Lennon MD [address] [place] [address], [address] [place] [address] [email or web address] PCP - General Internal Medicine 01/16/21 Xuan Ferraro DO [address] [place] [address] [email or web address] Insurance Assigned Provider 06/09/19 10/06/21 Kory Vogt MD [address] [place] [address] [email or web address] Gastroenterology 10/07/21 Xuan Ferraro DO [address] [place] [address] [email or web address] Insurance Assigned Provider 06/09/19 12/19/21 Harris Lennon MD [address] [place] [address], [address] [place] [address] [email or web address] Insurance Assigned Provider 12/17/23 Margarita Davidson RN [address] [place] [address], [address] [place] [address] [email or web address] iCMP Armhole Feller Handstitching Machine 06/02/22 06/29/22 Margarita Davidson RN [address] [place] [address], [address] [place] [address] [email or web address] iCMP Armhole Feller Handstitching MachineGem Setter 07/01/22 02/17/25 Jyoti Aviles, OT [address] [place] [address] [email or web address] Transitions Armhole Feller Handstitching MachineLace And Textiles Restorer Therapy 12/12/2312/14/23 documented as of this encounter Additional Source Comments The information contained in this document represents components of the legal health record. It is not the complete legal health record.[facility]
--- OUTSIDE RECORDS SUMMARY | 2025-06-12 14:16 | XMS_ITS | Encounter Summary ---
Author Organization [facility] Address [address] [place] [address] Phone Care Team Providers Care Otc Clerk Name Role Phone Xuan Ferraro DO Primary Care Provider + [phone] Damien Lance MD Unavailable [phone] Xuan Ferraro DO Unavailable [phone] Harris Lennon MD Primary Care Provider + [phone] Kory Vogt MD Unavailable Xuan Ferraro DO Unavailable [phone] Harris Lennon MD Unavailable [phone] Margarita Davidson RN Unavailable [email or web address] Margarita Davidson RN Unavailable [email or web address] Jyoti Aviles OT Unavailable [phone] Reason for Referral * Outpatient Procedure - Closed Specialty Diagnoses / Procedures Referred By Contac t Referred To Contact Diagnoses Aortic valve replaced History of thoracic aortic aneurysm repair Aortic valve stenosis, etiology of cardiac valve disease unspecified Procedures Adult Echo TTE Quincy Lopez MD Phone: tel: fax: mailto:[email or web address] Referral ID Status Reason Start Date Expiration Date Visits Re quested Visits Authorized [id number] Closed 03/26/2019 03/25/2020 1 1 Encounter Details Date Type Department Care Team (Latest Contact Info) Description 03/26/2019 Ancillary [facility] [address] [place] [address] Quincy Lopez MD [address] [place] [address] [place] [address] [email or web address] Aortic valve replaced; History of thoracic [...] Info) Description 04/08/2025 Procedure Pass Echo Lab [address] [place] [address] 07/30/2025 10:45 AM EST Office Visit [facility] [address] [place] [address] Harris Lennon MD [address] [place] [address], [address] [place] [address] 09/09/2025 11:15 AM EST Appointment Echo Lab [address] [place] [address] Stacie Gruber PA-C [address] [place] [address] 09/27/2025 10:40 AM EST Office Visit [facility] [address] [place] [address] 3rd Floor, [address] [place] [address] Davidson Gunter MD 22 [facility], [address] [place] [address] 02/14/2026 10:10 AM EDT Office Visit [facility] [address] [place] [address] Talon Seth DO 22 [place] [address] [email or web address] documented as of this encounter Results * [...] documented as of this encounter Care Teams Otc Clerk Relationship Specialty Start Date End Date Xuan Ferraro DO [address] [place] [address] [email or web address] PCP - General 09/15/18 01/15/21 Harris Lennon MD [address] [place] [address], [address] [place] [address] [email or web address] PCP - General Internal Medicine 01/16/21 Damien Lance MD [address] [place] [address] Floor 1 [place] [address] [email or web address] Insurance Assigned Provider 07/16/17 06/09/19 Xuan Ferraro DO [address] [place] [address] [email or web address] Insurance Assigned Provider 06/09/19 10/06/21 Kory Vogt MD [address] [place] [address] [email or web address] Gastroenterology 10/07/21 Xuan Ferraro DO [address] [place] [address] [email or web address] Insurance Assigned Provider 06/09/19 12/19/21 Harris Lennon MD [address] [place] [address], [address] [place] [address] [email or web address] Insurance Assigned Provider 12/17/23 Margarita Davidson RN [address] [place] [address], [address] [place] [address] [email or web address] iCMP Rice Dryer Mechanic 06/02/22 06/29/22 Margarita Davidson, RN 22 [facility], [address] [place] [address] [email or web address] iCMP Rice Dryer MechanicWic Site Coordinator 07/01/22 02/17/25 Jyoti Aviles, OT [address] [place] [address] [email or web address] Transitions Rice Dryer MechanicBus Van Driver Therapy 12/12/2312/14/23 documented as of this encounter Additional Source Comments The information contained in this document represents components of the legal health record. It is not the complete legal health record.[facility]
--- OUTSIDE RECORDS SUMMARY | 2025-06-12 14:16 | XMS_ITS | Encounter Summary ---
Author Organization [facility] Address [address] [place] [address] Phone Care Team Providers Care Shirt Bander Name Role Phone Xuan Ferraro DO Primary Care Provider + [phone] Xuan Ferraro DO Unavailable [phone] Harris Lennon MD Primary Care Provider Kory Vogt MD Unavailable Xuan Ferraro DO Unavailable [phone] Harris Lennon MD Unavailable [phone] Margarita Davidson RN Unavailable [email or web address] Margarita Davidson RN Unavailable [email or web address] Jyoti Aviles OT Unavailable [phone] Encounter Details Date Type Department Care Team (Late st Contact Info) Description 07/02/2020 Procedure Pass [facility], Ct Scan - [address] [address] Social History Tobacco Use Types Packs/Day Years [...] Info) Description 04/08/2025 Procedure Pass Echo Lab [address] [place] [address] 07/30/2025 10:45 AM EST Office Visit [facility] [address] [place] [address] [place] [address] Harris Lennon MD [address] [place] [address], [address] [place] [address] 09/09/2025 11:15 AM EST Appointment Echo Lab [address] [place] [address] Stacie Gruber PA-C [address] [place] [address] 09/27/2025 10:40 AM EST Office Visit [facility] [address] [place] [address] 3rd Floor, [address] [place] [address] Davidson Gunter MD [address] [place] [address], [address] [place] [address] 02/14/2026 10:10 AM EDT Office Visit [facility] [address] [place] [address] [place] [address] Talon Seth DO [address] [place] [address] documented as of this encounter Visit Diagnoses [...] documented as of this encounter Care Teams Shirt Bander Relationship Specialty Start Date End Date Xuan Ferraro DO [address] [place] [address] [email or web address] PCP - General 09/15/18 01/15/21 Harris Lennon MD [address] [place] [address], [address] [place] [address] [email or web address] PCP - General Internal Medicine 01/16/21 Xuan Ferraro DO [address] [place] [address] [email or web address] Insurance Assigned Provider 06/09/19 10/06/21 Kory Vogt MD [address] [place] [address] Gastroenterology 10/07/21 Xuan Ferraro DO [address] [place] [address] [email or web address] Insurance Assigned Provider 06/09/19 12/19/21 Harris Lennon MD [address] [place] [address], [address] [place] [address] [email or web address] Insurance Assigned Provider 12/17/23 Margarita Davidson RN [address] [place] [address], [address] [place] [address] [email or web address] iCMP Career Technical Education Instructor 06/02/22 06/29/22 Margarita Davidson, RN 22 [facility], [address] [place] [address] [email or web address] iCMP Career Technical Education InstructorCuring Room Worker 07/01/22 02/17/25 Jyoti Aviles, OT [address] [place] [address] [email or web address] Transitions Career Technical Education InstructorSupervisor Phosphorus Processing Therapy 12/12/2312/14/23 documented as of this encounter Additional Source Comments The information contained in this document represents components of the legal health record. It is not the complete legal health record.[facility]
--- OUTSIDE RECORDS SUMMARY | 2025-06-12 14:16 | XMS_ITS | Encounter Summary ---
Author Organization [facility] Address [address] [place] [address] Phone Care Team Providers Care Flare Stitcher Name Role Phone Xuan Ferraro DO Unavailable [phone] Harris Lennon MD Primary Care Provider [phone] Kory Vogt MD Unavailable Xuan Ferraro DO Unavailable [phone] Harris Lennon MD Unavailable [phone] Margarita Davidson RN Unavailable [email or web address] Margarita Davidson RN Unavailable [email or web address] Jyoti Aviles OT Unavailable [phone] Encounter Details Date Type Department Care Team (Late st Contact Info) Description 08/24/2021 Ancillary Orders [facility] [address] [place], [place] [id number] System, Provider Not In, [facility] [address] [address] Social History Tobacco Use Types Packs/Day Years [...] Description 04/08/2025 Procedure Pass Echo Lab [address] [place] [address] 07/30/2025 10:45 AM EST Office Visit [facility] [address] [place] [address] [place] [address] Harris Lennon MD [address] [place] [address], [address] [place] [address] 09/09/2025 11:15 AM EST Appointment Echo Lab [address] [place] [address] Stacie Gruber PA-C [address] [place] [address] 09/27/2025 10:40 AM EST Office Visit [facility] [address] [place] [address] 3rd Floor, [address] [place] [address] Davidson Gunter MD [address] [place] [address], [address] [place] [address] 02/14/2026 10:10 AM EDT Office Visit [facility] [address] [place] [address] [place] [address] Talon Seth DO [address] [place] [address] documented as of this encounter Results * [...] documented as of this encounter Care Teams Flare Stitcher Relationship Specialty Start Date End Date Harris Lennon MD [address] [place] [address], [address] [place] [address] PCP - General Internal Medicine 01/16/21 Xuan Ferraro DO [address] [place] [address] [email or web address] Insurance Assigned Provider 06/09/19 10/06/21 Kory Vogt MD [address] [address] Gastroenterology 10/07/21 Xuan Ferraro DO [address] [place] [address] [email or web address] Insurance Assigned Provider 06/09/19 12/19/21 Harris Lennon MD [address] [place] [address], [address] [place] [address] Insurance Assigned Provider 12/17/23 Margarita Davidson RN 22 [facility], [address] [place] [address] [email or web address] iCMP Wood Scrap Handler 06/02/22 06/29/22 Margarita Davidson RN [address] [place] [address], [address] [place] [address] [email or web address] iCMP Wood Scrap HandlerMeat Butcher 07/01/22 02/17/25 Jyoti Aviles, OT [address] [place] [address] [email or web address] Transitions Wood Scrap HandlerArabic Linguist Therapy 12/12/2312/14/23 documented as of this encounter Additional Source Comments The information contained in this document represents components of the legal health record. It is not the complete legal health record.[facility]
--- OUTSIDE RECORDS SUMMARY | 2025-06-12 14:17 | XMS_ITS | Encounter Summary ---
Author Organization [facility] Address [address] [place] [address] Phone Care Team Providers Care Medical Doctor Nuclear Medicine Name Role Phone Harris Lennon MD Primary Care Provider [phone] Kory Vogt MD Unavailable Harris Lennon MD Unavailable [phone] Margarita Davidson RN Unavailable [email or web address] Jyoti Aviles OT Unavailable [phone] Encounter Details Date Type Department Care Team (Late st Contact Info) Description 02/08/2023 Procedure Pass Echo Lab [address] [place] [address] Social History Tobacco Use Types Packs/Day Years [...] Description 04/08/2025 Procedure Pass Echo Lab [address] [place] [address] 07/30/2025 10:45 AM EST Office Visit [facility] [place] [facility] [address] [place] [address] [place] [address] Harris Lennon MD [address] [place] [address], [address] [place] [address] 09/09/2025 11:15 AM EST Appointment Echo Lab [address] [place] [address] Stacie Gruber PA-C [address] [place] [address] 09/27/2025 10:40 AM EST Office Visit [facility] [address] [place] [address] Dr 3rd Floor, [address] [place] [address] Davidson Gunter MD [address] [place] [address], [address] [place] [address] 02/14/2026 10:10 AM EDT Office Visit [facility] [address] [place] [address] [place] [address] Talon Seth DO [address] [place] [address] documented as of this encounter Visit Diagnoses Not on filedocumented in this encounter Additional Health Concerns Infection Onset Date Last Indicated Resolved Time CoV-Risk 11/16/2023 11/16/2023 11/27/2023 1:21 AM EDT Assessment Noted Time PHQ-9 Depression Total Score: 15 018 2:17 PM EST PHQ-2 Depression Total Score: 0 06/22/20 23 1:25 PM EDT documented as of this encounter Care Teams Medical Doctor Nuclear Medicine Relationship Specialty Start Date End Date Harris Lennon MD [address] [place] [address], [address] [place] [address] PCP - General Internal Medicine 01/16/21 Kory Vogt MD [address] [address] Gastroenterology 10/07/21 Harris Lennon MD [address] [place] [address], [address] [place] [address] Insurance Assigned Provider 12/17/23 Margarita Davidson, RN [address] [place] [address], [address] [place] [address] [email or web address] Independent Freight AgentChainstitch Felled Seam Operator 07/01/22 02/17/25 Jyoti Aviles, OT [address] [place] [address] Transitions Independent Freight AgentBrick Baker Therapy 12/12/2312/14/23 documented as of this encounter Additional Source Comments The information contained in this document represents components of the legal health record. It is not the complete legal health record.[facility]
== END 2025-06-12 13:23 | disposition home or self-care (01) ==
LOC: HO.ACS 12:58
PROVIDERS: PCP Internal Medicine; Visit Provider Internal Medicine Medical Oncology
DX: Z79.01 Long term (current) use of anticoagulants (principal)

== ENCOUNTER → 2025-06-12 12:58 | Outpatient (BNVA) | payer MEDICARE, SELFPAY | PROVIDERS: PCP Internal Medicine; Visit Provider Internal Medicine Medical Oncology | DX: Z51.81 Encounter for therapeutic drug level monitoring (principal); Z79.01 Long term (current) use of anticoagulants | CPT/HCPCS: 85610; 99211 ==

== ENCOUNTER 2025-07-08 10:39 | Outpatient (AMB) | payer MEDICARE, SELFPAY ==
[2025-07-08 10:46] LABS: Prothrombin Time Whole Bld POC 17.4 sec (11.1-13.5); ~PT, ~INR - Anti Coag Clinic 1.5 (0.9-1.1)
--- NOTE | 2025-07-08 10:56 | MHC.OFFVISCO ---
Intake Intake Visit Reasons: Anticoagulation Allergies memantine Allergy (Severe, Verified 07/08/25 10:41) RAGE nitrofurantoin Allergy (Intermediate, Verified 07/08/25 10:41) RASH oseltamivir (From Tamiflu) Allergy (Intermediate, Verified 07/08/25 10:41) RASH oxycodone (From PERCOCET) Allergy (Unknown, Verified 07/08/25 10:41) UNKNOWN Penicillins (PENICILLINS) Allergy (Unknown, Verified 07/08/25 10:41) UNKNOWN Sulfa (Sulfonamide Antibiotics) (SULFA (SULFONAMIDE ANTIBIOTICS)) Allergy (Unknown, Verified 07/08/25 10:41) UNKNOWN Medication List - Last Reconciled 07/08/25 by Criselda Marshall RN acetaminophen (Tylenol Extra Strength) 1,000 mg (2 x 500 mg) PO QID PRN albuterol sulfate 90 mcg/actuation 2 puffs inhalation Q4-6H PRN alendronate 70 mg PO QWEEK ascorbic acid (vitamin C) (Vitamin C) 500 mg PO TID azithromycin 500 mg PO ONCE PRN biotin 5,000 mcg PO DAILY calcium carbonate-vitamin D3 600 mg-12.5 mcg (500 unit) (Calcium with Vit D3) calcium 1200, vit d 25mcg cetirizine 10 mg PO DAILY PRN Held on 12/29/23. Instructions: Doctor's Order cholecalciferol (vitamin D3) 250 McG DAILY PO; clotrimazole-betamethasone 1-0.05 % 1 appl topical BID Held on 12/29/23. Instructions: Doctor's Order cranberry fruit concentrate (Azo Cranberry) PO BID docusate sodium 100 mg PO BID estradiol 0.01%(0.1mg/gram) grams vaginal 2XW ezetimibe 10 mg PO DAILY Held on 12/29/23. Instructions: Doctor's Order fluticasone propion-salmeterol 500-50 mcg/dose (Advair Diskus) 1 inh inhalation BID inhalational spacing device ([facility] R[facility]e [facility] spacer) As directed losartan 25 mg PO DAILY magnesium oxide 500 mg PO DAILY mecobalamin (vitamin B12) mcg PO DAILY methenamine hippurate 1 g PO BID metoprolol succinate ER 75 mg PO DAILY mirtazapine 7.5 mg PO BEDTIME yvllemmi-qlo-bewi-FA-vit K-lut (Multivitamin Women 50 Plus) PO psyllium husk (Metamucil) 0.4 grams PO DAILY Saccharomyces boulardii (Daily Probiotic (S. boulardii)) PO simethicone (Gas Relief (simethicone)) PO topiramate 50 mg PO DAILY Held on 12/29/23. Instructions: Doctor's Order vibegron (Gemtesa) 75 mg PO DAILY warfarin See Protocol 7.5mg x2days/ 5mg x5days; Nursing Note INR: 1.5 out of therapeutic range of 2-3 Medications and supplements reviewed Patient status: feels well. Pt is with her and they believe she might have missed a dose. Medications or supplements: no changes Diet: usual diet for pt Denies any signs and symptoms of bleeding or clotting or unusual bruising Bleeding, bruising, clotting discussed Nutritional guidance given: to avoid greens X 2 days and to have a serving of foods that raise the INR. Pt will have beets. Dose: increase today's dose to 7.5mg then usual dose of 2.5mg/5mg/2.5mg then return for recheck F/U INR Date: 07/12/25?? Patient verbalizing understanding of instructions given. T/C to pcp Harris Lennon's office, [facility] [address] [place] [address]. Spoke to nurse Morillo and reported critical INR with dosing and diet plan with next retest date. Coding Level of Care Code Est Patient Level 1 Diagnoses Current use of anticoagulant therapy Z79.01 Assessment & Plan Assessment & Plan (1) Current use of anticoagulant therapy: Code(s): Z79.01 - assisted (current) use of anticoagulants Category: Medical
--- OUTSIDE RECORDS SUMMARY | 2025-07-08 13:05 | XMS_ITS | Patient Health Record ---
Author [facility] [place] Address [address] [facility] [place] [address] Care Team Providers Care Editorial Manager Name Role Phone Damien Lance Primary Care Provider Brianne Arcos Unavailable [phone] Allergies Allergen (clinical drug ingredient) Drug/Non Drug [...] Medicare National Govt S[employer] [address] [facility] [address] [phone] [id number] Lindsey José Self - patient is the insured [employer] [address] [place] [address] [id number] Lindsey José Self - patient is the insured Medical (General) History Medical History History ICD Code osteoarthritis asthma Back,Hip,and Knee pain Broken bones Cholesterol Dementia Depression Heart disease Hypertension Neuropathy Reflux chronic sinusitis Measles Mumps Chicken pox Joint implants/screws Transfusions
--- OUTSIDE RECORDS SUMMARY | 2025-07-08 13:05 | XMS_ITS | Clinical Summary ---
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
--- OUTSIDE RECORDS SUMMARY | 2025-07-08 13:05 | XMS_ITS | Encounter Summary ---
Author Organization [facility] Address [address] [place] [address] Care Team Providers Care Security Program Manager Name Role Phone Unavailable Primary Care Provider Unavailabl e Encounter Details Date Type Department Care Team (Late st Contact Info) Description 07/27/2016 Scanned Document [facility] [place] [address] [facility] [address] [place] [address] Manny Lindo MD [address] [facility] [address] [place] [address] Social History Tobacco Use Types Packs/Day Years [...]
--- OUTSIDE RECORDS SUMMARY | 2025-07-08 13:06 | XMS_ITS | Data Portability ---
Author Organization [place] [facility] Address [address] [place] [address] Care Team Providers Care Classics Teacher Name Role Phone ESTRADAIVETTE Primary Care Provider [phone] Assessment Encounter Date Assessment Date Assessment LastModified by Organization Details LastModified Time 08/19/2020 08/19/2020 Overview/History : 74-year-old female with past medical history significant for asthma, COPD, depression, dementia, hyperlipidemia, hypertension, history of PE and TIA, aortic dissection status post repair and aortic valve replacement, PAF on coumadin, and osteoporosis, new to [facility], who presents with complaints of [...] WB and NE tick panel pending. Plan/Discussion: [facility] came to evaluate your rash. [...] days. Thank you for your visit with [facility] today. We cannot always find the [...] in your condition between 8am-10pm, please call [facility] at [phone] to help navigate your care. Time On Scene with Patient: 00:51:41 simeon Not available 08/19/2020 12:31:00 Plan of Treatment Reminders Order Date Submit Date Provider Last Modified By Organization Details Last Modified Time Details Appointments None recorded. Lab lyme disease Ab, total, serum 2019 HIRAM [facility] (Centralized Electronic Ordering - All Locations), Patient Can Go To The Location Of Their Choice, [address] 0 16:27:56 tick-borne disease panel 2019 [facility] (Centralized Electronic Ordering - All Locations), Patient Can Go To The Location Of Their Choice, [address] 1 13:50:37 Referral None recorded. Procedures None recorded. Surgeries None recorded. Imaging None recorded. Medication Orders doxycycline hyclate 100 mg capsule 2019 simeon [id number], [address] [facility], [place], [address], 0 12:12:53 Patient TargetsNo targets recorded. Patient Instructions Encounter Date Encounter Id Patient Instructions Last Modified By Organization Details Last Modified Time 08/19/2020 [id number] [facility] came to evaluate your rash. [...] days. [facility]. We cannot always find the [...] in your condition between 8am-10pm, please call [facility] at [phone] to help navigate your care. simeon Not [...] Go To The Location Of Their Choice, [address] 08/21/2020 16:27:56 Result Notes None recorded. Problems Name Problem SNOMED Code Status Onset Date Resolution Date Notes Provider Name and Address Organization Details Recorded Time Dementia 69087284 Active 020 CECI VERA [address] [place], [address] , [place] [facility] 0 11:23:51 Problem Notes None recorded. Procedures Surgical History Date Name Laterality Status Provider Name and Address Organization Details Recorded Time 08/19/20 20 Venipuncture - DH completed CECI VERA [address], [place], [address], [place] [facility] 08/19/2020 12:21:11 Imaging Results None recorded. Procedure Notes None recorded. Medical Equipment None Reported. Allergies Allergen ID Allergen Name Allergen Category Reaction Reaction Severity Criticality Documentation Date Start Date Code Code System Note Provider Name and Address Organization Details Recorded Time 688817 Substance with sulfonami de structure and antibacte rial mechanism of action (substanc e) medicatio n Not available Not available Not available 08/19/2020 60250 8003 SNOMED CECI VERA [address] [place], [address], [place] [facility] 0 11:22:26 951521 Product containin g penicilli n (product) medicatio n Not available Not available Not available 08/19/2020 82422 8001 SNOMED CECI VERA [address] [place], [address], [place] [facility] 0 11:22:41 637379 acetamino phen / oxycodone medicatio n Not available Not available Not available 08/19/2020 54456 3 RxNorm CECI VERA [address], [place], [address], [place] [facility] 0 11:22:51 032723 nitrofura ntoin medicatio n Not available Not available Not available 08/19/2020 7454 RxNorm CECI VERA [address], [place], [address], [place] [facility] 0 11:23:05 795827 Tamiflu medicatio n Not available Not available Not available 08/19/2020 22241 7 RxNorm CECI VERA [address], [place], [address], [place] [facility] 0 11:23:13 153803 memantine medicatio n Not available Not available Not available 08/19/2020 6719 RxNorm CECI VERA [address], [place], [address], [place] [facility] 0 [...] Former Smoker CECI VERA [address], [place], [address], [place] [facility] 08/19/2020 11:29:43 Do You Have An Advance Directive? Yes Information not available 08/19/2020 What Is Your Code Status? DNR Information not available 08/19/2020 Within The Past 12 Months, Has It Happened That The Food You Bought Just Didn't Last And You Didn't Have Money To Get More. No Vineki Information not available 08/19/2020 Within The Past 12 Months, Have You Worried That Your Food Would Run Out Before You Got Money To Buy More. No Vineki Information not available 08/19/2020 Fall Risk: Do You Feel Unsteady When Standing Or Walking? No badQuixeyki Information not available 08/19/2020 We Know That How And When People Interact With Friends And Family Can Be Very Different From Person To Person. How Often Do You Have The Opportunity To See Or Talk To People That You Care About And Feel Close To? (Ex: Talking To Friends On The Phone Or Visiting Friends Or Family Or Going To Jew Or Club Meetings) 5 Or More Times Per Week badQuixeyki Information not available 08/19/2020 Excessive Alcohol Or Drug Use No Vineki Information not available 08/19/2020 We Know From [...] Diagnosis SNOMED-CT Code Diagnosis ICD10 Code Diagnosis IMO Codes Diagnosis Note [id number] CECI VERA [facility] [address] [place] [address] 08/19/2020 11:12:55 08/19/2020 19:09:01 Lyme disease 40453116 A69.20 Health Concerns Section Related Observation LastModified by Organization Detai ls LastModified Time None Recorded Concern Status LastModified by Organization Details LastModified Time None Recorded Advance Directives Directive Y: Payers Insurance Date Sequence Insurance Name Policy Number Policy Cottrell Covered Member ID Cottrell Member ID Guarantor Name 08/19/2020 1 *SELF PAY* Lindsey José [id number] Lindsey José 08/19/2020 1 [place] Lindsey José [id number] Lindsey José 08/19/2020 2 [facility]PL[place] PROGRAM (POS) [id number] Lindsey José [id number] Lindsey José 08/19/2020 2 [facility]: ([place]MN[place]) Lindsey José [id number] Lindsey José Notes Date Note Type Note Provider Name and Address Organization Details Recorded Time 08/19/2020 text/html 74-year-old female with past medical history significant for asthma, COPD, depression, dementia, hyperlipidemia, hypertension, history of PE and TIA, aortic dissection status post repair and aortic valve replacement, PAF on coumadin, and osteoporosis, new to [facility], who presents with complaints of [...] this time. CECI VERA [address], [place], [address], [place] [facility] 08/19/2020 12:31:09 OBGyn Episode No OBEpisode recorded.
== END 2025-07-08 12:05 | disposition home or self-care (01) ==
LOC: HO.ACS 10:39
PROVIDERS: PCP Internal Medicine; Visit Provider Internal Medicine Medical Oncology
DX: Z79.01 Long term (current) use of anticoagulants (principal)

== ENCOUNTER → 2025-07-08 10:39 | Outpatient (BNVA) | payer MEDICARE, SELFPAY | PROVIDERS: PCP Internal Medicine; Visit Provider Internal Medicine Medical Oncology | DX: I48.0 Paroxysmal atrial fibrillation (principal); Z51.81 Encounter for therapeutic drug level monitoring; Z79.01 Long term (current) use of anticoagulants | CPT/HCPCS: 85610; 99211 ==

== ENCOUNTER 2025-07-12 10:34 | Outpatient (AMB) | payer MEDICARE, SELFPAY ==
--- OUTSIDE RECORDS SUMMARY | 2022-08-21 13:20 | XMS_ITS | Encounter Summary ---
Author Organization [facility] Address [address] [place] [address] Phone Care Team Providers Care Trauma Program Manager Name Role Phone Harris Lennon MD Primary Care Provider +1- [phone] Kory Vogt MD Unavailable Margarita Davidson RN Unavailable [email or web address] Encounter Details Date Type Department Care Team (Late st Contact Info) Description 08/21/2022 12:[address] [facility] Hospital Encounter [facility] [address] [place] [address] [phone] Juliana Troy, [address], [facility] [address] [place] [address] [email or web address] Social History Tobacco Use Types Packs/Day Years [...] 9:27 AM EDT Shilo Miller RN * [place] Suicide Severity Rating Scale (Screener/Recent Self-Report) Question Answer Date of Assessment Author 1. Wish to be (Past 1 Month) No 024 9:27 AM Shilo Francis RN 2. Non-Specific Active Suici reese Thoughts (Past 1 Month) No 06/16/2024 9:27 AM Shilo Francis RN 6. Suicidal Behavior (Lifetime) No 9:27 AM Shilo Francis RN documented as of this encounter Plan of Treatment Upcoming Encounters Date Type Department Care Team (Late st Contact Info) Description 04/08/2025 Procedure Pass Echo Lab [address] [place] [address] 07/30/2025 10:45 AM EST Office Visit [address] [place] [address] Harris Lennon MD 22 [facility], [address] [place] [address] 09/09/2025 11:15 AM EST Appointment Echo Lab [address] [place] [address] Stacie Gruber PA-C [address] [place] [address] 09/27/2025 10:40 AM EST Office Visit [facility] [address] [place] [address] 3rd Floor, [address] [place] [address] Davidson Gunter MD [address] [place] [address], [address] [place] [address] 02/14/2026 10:10 AM EDT Office Visit [facility] [address] [place] [address] [place] [address] Talon Seth DO [address] [place] [address] documented as of this encounter Procedures Procedure [...] report originally createdby Selena Franklin. Juliana Troy [facility] IM XR CHEST Final Result documented in this [...] documented as of this encounter Care Teams Trauma Program Manager Relationship Specialty Start Date End Date Harris Lennon MD [address] [place] [address], [address] [place] [address] [email or web address] PCP - General Internal Medicine 01/16/21 Kory Vogt MD [address] [place] [phone] [email or web address] Gastroenterology 10/07/21 Margarita Davidson RN [address] [place] [address] [email or web address] PHCM Glass Mold RepairerWaste And Batting Waste Chopper 07/01/22 documented as of this encounter Additional Source Comments The information contained in this document represents components of the legal health record. It is not the complete legal health record.[facility]
[2025-07-12 11:03] LABS: Prothrombin Time Whole Bld POC 23.6 sec (11.1-13.5); ~PT, ~INR - Anti Coag Clinic 2.0 (0.9-1.1)
--- NOTE | 2025-07-12 11:08 | MHC.OFFVISCO ---
Intake Intake Visit Reasons: Anticoagulation Allergies memantine Allergy (Severe, Verified 07/12/25 10:58) RAGE nitrofurantoin Allergy (Intermediate, Verified 07/12/25 10:58) RASH oseltamivir (From Tamiflu) Allergy (Intermediate, Verified 07/12/25 10:58) RASH oxycodone (From PERCOCET) Allergy (Unknown, Verified 07/12/25 10:58) UNKNOWN Penicillins (PENICILLINS) Allergy (Unknown, Verified 07/12/25 10:58) UNKNOWN Sulfa (Sulfonamide Antibiotics) (SULFA (SULFONAMIDE ANTIBIOTICS)) Allergy (Unknown, Verified 07/12/25 10:58) UNKNOWN Medication List - Last Reconciled 07/12/25 by Criselda Marshall RN acetaminophen (Tylenol Extra Strength) 1,000 mg (2 x 500 mg) PO QID PRN albuterol sulfate 90 mcg/actuation 2 puffs inhalation Q4-6H PRN alendronate 70 mg PO QWEEK ascorbic acid (vitamin C) (Vitamin C) 500 mg PO TID azithromycin 500 mg PO ONCE PRN biotin 5,000 mcg PO DAILY calcium carbonate-vitamin D3 600 mg-12.5 mcg (500 unit) (Calcium with Vit D3) calcium 1200, vit d 25mcg cetirizine 10 mg PO DAILY PRN Held on 12/29/23. Instructions: Doctor's Order cholecalciferol (vitamin D3) 250 McG DAILY PO; clotrimazole-betamethasone 1-0.05 % 1 appl topical BID Held on 12/29/23. Instructions: Doctor's Order cranberry fruit concentrate (Azo Cranberry) PO BID docusate sodium 100 mg PO BID estradiol 0.01%(0.1mg/gram) grams vaginal 2XW ezetimibe 10 mg PO DAILY Held on 12/29/23. Instructions: Doctor's Order fluticasone propion-salmeterol 500-50 mcg/dose (Advair Diskus) 1 inh inhalation BID inhalational spacing device ([facility] spacer) As directed losartan 25 mg PO DAILY magnesium oxide 500 mg PO DAILY mecobalamin (vitamin B12) mcg PO DAILY methenamine hippurate 1 g PO BID metoprolol succinate ER 75 mg PO DAILY mirtazapine 7.5 mg PO BEDTIME djpdimqz-uio-owhm-FA-vit K-lut (Multivitamin Women 50 Plus) PO psyllium husk (Metamucil) 0.4 grams PO DAILY Saccharomyces boulardii (Daily Probiotic (S. boulardii)) PO simethicone (Gas Relief (simethicone)) PO topiramate 50 mg PO DAILY Held on 12/29/23. Instructions: Doctor's Order vibegron (Gemtesa) 75 mg PO DAILY warfarin See Protocol 7.5mg x2days/ 5mg x5days; Nursing Note INR: 2.0 in therapeutic range of 2-3 Previous INR on 07/08/25 was 1.5. Pt not sure if she missed a dose. Medications and supplements reviewed No changes in health, diet, medications, or supplements, Denies any signs and symptoms of bleeding or bruising or clotting. Bleeding, bruising, clotting discussed Nutritional guidance given avoid greens today Dose: 5mg today and then 5mg tomorrow then return to usual dose of 2.5mg X 4 days and 5mg X 3 days (Mon, Wed & Fri) F/U INR: 2 weeks Patient verbalizes understanding of instructions given Coding Level of Care Code Est Patient Level 1 Diagnoses Current use of anticoagulant therapy Z79.01 Results AMB INR Fingerstick AMB INR Fingerstick 2.0 Last Edit by Criselda Marshall RN on 07/12/25 11:03 interface delay Assessment & Plan Assessment & Plan (1) Current use of anticoagulant therapy: Code(s): Z79.01 - detention (current) use of anticoagulants Category: Medical
--- OUTSIDE RECORDS SUMMARY | 2025-07-12 11:55 | XMS_ITS | Encounter Summary ---
Author Organization [facility] Address [address] [place] [address] Phone Care Team Providers Care Child Care Coordinator Name Role Phone Xuan Ferraro DO Primary Care Provider [phone] Xuan Ferraro DO Unavailable [phone] Harris Lennon MD Primary Care Provider Kory Vogt MD Unavailable Xuan Ferraro DO Unavailable [phone] Harris Lennon MD Unavailable [phone] Margarita Davidson RN Unavailable [email or web address] Margarita Davidson RN Unavailable [email or web address] Jyoti Aviles OT Unavailable [phone] Encounter Details Date Type Department Care Team (Late st Contact Info) Description 09/07/2019 Procedure Pass [facility] Admitting Dept Virtual Department [address] [place] [address] Social History Tobacco Use Types Packs/Day Years [...] Description 04/08/2025 Procedure Pass Echo Lab [address] [place] [address] 07/30/2025 10:45 AM EST Office Visit [facility] [address] [place] [address] [place] [address] Harris Lennon MD [address] [place] [address], [address] [place] [address] 09/09/2025 11:15 AM EST Appointment Echo Lab [address] [place] [address] Stacie Gruber PA-C [address] [place] [address] 09/27/2025 10:40 AM EST Office Visit [facility] [address] [place] [address] 3rd Floor, [address] [place] [address] Davidson Gunter MD [address] [place] [address], [address] [address] 02/14/2026 10:10 AM EDT Office Visit [facility] [address] [place] [address] [place] [address] Talon Seth DO [address] [place] [address] documented as of this encounter Visit Diagnoses [...] documented as of this encounter Care Teams Child Care Coordinator Relationship Specialty Start Date End Date Xuan Ferraro DO [address] [place] [address] [email or web address] PCP - General 09/15/18 01/15/21 Harris Lennon MD [address] [place] [address], [address] [place] [address] [email or web address] PCP - General Internal Medicine 01/16/21 Xuan Ferraro DO [address] [place] [address] [email or web address] Insurance Assigned Provider 06/09/19 10/06/21 Kory Vogt MD [address] [place] [address] [email or web address] Gastroenterology 10/07/21 Xuan Ferraro DO [address] [place] [address] [email or web address] Insurance Assigned Provider 06/09/19 12/19/21 Harris Lennon MD [address] [place] [address], [address] [place] [address] [email or web address] Insurance Assigned Provider 12/17/23 Margarita Davidson RN [address] [place] [address], [address] [place] [address] [email or web address] PHCM Mower Sharpener 06/02/22 06/29/22 Margarita Davidson, RN [address] [facility], [address] [place] [address] [email or web address] PHC Mower SharpenerManufacturing Project Engineer 07/01/22 02/17/25 Jyoti Aviles, OT [address] [place] [address] [email or web address] Transitions Mower SharpenerLimousine Rental Clerk Therapy 12/12/2312/14/23 documented as of this encounter Additional Source Comments The information contained in this document represents components of the legal health record. It is not the complete legal health record.[facility]
--- OUTSIDE RECORDS SUMMARY | 2025-07-12 11:55 | XMS_ITS | Encounter Summary ---
Author Organization [facility] Address [address] [place] [address] Phone Care Team Providers Care Parlor Chaperone Name Role Phone Xuan Ferraro DO Primary Care Provider + [phone] Damien Lance MD Unavailable Xuan Ferraro DO Unavailable [phone] Harris Lennon MD Primary Care Provider + [phone] Kory Vogt MD Unavailable Xuan Ferraro DO Unavailable [phone] Harris Lennon MD Unavailable [phone] Margarita Davidson RN Unavailable [email or web address] Margarita Davidson RN Unavailable [email or web address] Jyoti Aviles OT Unavailable [phone] Encounter Details Date Type Department Care Team (Late st Contact Info) Description 11/29/2018 Procedure Pass [facility], [address] [address] Social History Tobacco Use Types Packs/Day Years [...] Description 04/08/2025 Procedure Pass Echo Lab [address] [place] [address] 07/30/2025 10:45 AM EST Office Visit [facility] [address] [place] [address] [place] [address] Harris Lennon MD [address] [place] [address], [address] [place] [address] 09/09/2025 11:15 AM EST Appointment Echo Lab [address] [place] [address] Stacie Gruber PA-C [address] [place] [address] 09/27/2025 10:40 AM EST Office Visit [facility] [address] [place] [address] 3rd Floor, [address] [place] [address] Davidson Gunter MD [address] [place] [address], [address] [address] 02/14/2026 10:10 AM EDT Office Visit [facility] [address] [place] [address] [place] [address] Talon Seth DO 22 [place] [address] [email or web address] documented as of this encounter Visit Diagnoses [...] documented as of this encounter Care Teams Parlor Chaperone Relationship Specialty Start Date End Date Xuan Ferraro DO [address] [place] [address] [email or web address] PCP - General 09/15/18 01/15/21 Harris Lennon MD [facility], [address] [place] [address] [email or web address] PCP - General Internal Medicine 01/16/21 Damien Lance MD [facility] Floor 1 [place] [address] [email or web address] Insurance Assigned Provider 07/16/17 06/09/19 Xuan Ferraro DO [address] [place] [address] [email or web address] Insurance Assigned Provider 06/09/19 10/06/21 Kory Vogt MD [address] [place] [address] [email or web address] Gastroenterology 10/07/21 Xuan Ferraro DO 9 [place] [address] [email or web address] Insurance Assigned Provider 06/09/19 12/19/21 Harris Lennon MD [address] [place] [address], [address] [place] [address] [email or web address] Insurance Assigned Provider 12/17/23 Margarita Davidson RN [address] [place] [address], [address] [place] [address] [email or web address] PHCM Violin Repairer 06/02/22 06/29/22 Margarita Davidson RN [address] [place] [address], [address] [place] [address] [email or web address] PHC Violin RepairerConvertible Top Installer 07/01/22 02/17/25 Jyoti Aviles, OT [address] [place] [address] [email or web address] Transitions Violin RepairerMetal Die Finisher Therapy 12/12/2312/14/23 documented as of this encounter Additional Source Comments The information contained in this document represents components of the legal health record. It is not the complete legal health record.[facility]
--- OUTSIDE RECORDS SUMMARY | 2025-07-12 11:55 | XMS_ITS | Encounter Summary ---
Author Organization [facility] Address [address] [place] [address] Phone Care Team Providers Care Control Equipment Electrician Name Role Phone Harris Lennon MD Primary Care Provider [phone] Kory Vogt MD Unavailable Harris Lennon MD Unavailable [phone] Margarita Davidson RN Unavailable [email or web address] Jyoti Aviles OT Unavailable [phone] Encounter Details Date Type Department Care Team (Late st Contact Info) Description 08/02/2022 Procedure Pass [address] [address] Social History Tobacco Use Types Packs/Day Years [...] Info) Description 04/08/2025 Procedure Pass Echo Lab [address] [place] [address] 07/30/2025 10:45 AM EST Office Visit [facility] [address] [place] [address] [place] [address] Harris Lennon MD [address] [place] [address], [address] [place] [address] 09/09/2025 11:15 AM EST Appointment Echo Lab [address] [place] [address] Stacie Gruber PA-C [address] [place] [address] 09/27/2025 10:40 AM EST Office Visit [facility] [address] [place] [address] 3rd Floor, [address] [place] [address] Davidson Gunter MD [address] [place] [address], [address] [place] [address] 02/14/2026 10:10 AM EDT Office Visit [facility] [address] [place] [address] [place] [address] Talon Seth DO 22 [place] [address] documented as of this encounter Visit Diagnoses [...] documented as of this encounter Care Teams Control Equipment Electrician Relationship Specialty Start Date End Date Harris Lennon MD [address] [place] [address], [address] [place] [address] PCP - General Internal Medicine 01/16/21 Kory Vogt MD [address] [place] [address] Gastroenterology 10/07/21 Harris Lennon MD [address] [place] [address], [address] [place] [address] Insurance Assigned Provider 12/17/23 Margarita Davidson RN [address] [place] [address], [address] [place] [address] [email or web address] PHCM Animal WardenPetroleum Terminal Plant Operator 07/01/22 02/17/25 Jyoti Aviles, OT [address] [place] [address] [email or web address] Transitions Animal WardenTransfer Pumper Therapy 12/12/2312/14/23 documented as of this encounter Additional Source Comments The information contained in this document represents components of the legal health record. It is not the complete legal health record.[facility]
--- OUTSIDE RECORDS SUMMARY | 2025-07-12 11:55 | XMS_ITS | Encounter Summary ---
Author Organization [facility] Address [address] [place] [address] Phone Care Team Providers Care Avionics Shop Supervisor Name Role Phone Damien Lance MD Primary Care Provide r Xuan Ferraro DO Primary Care Provider + [phone] Damien Lance MD Unavailable [phone] Xuan Ferraro DO Unavailable [phone] Harris Lennon MD Primary Care Provider + [phone] Kory Vogt MD Unavailable Xuan Ferraro DO Unavailable [phone] Harris Lennon MD Unavailable [phone] Margarita Davidson RN Unavailable [email or web address] Margarita Davidson RN Unavailable [email or web address] Jyoti Aviles OT Unavailable [phone] Encounter Details Date Type Department Care Team (Latest Contact Info) Description 02/13/2018 Transcribe Orders [facility] [address] [id number] Javier Chauhan MD [address] [id number] [email or web address] Gastroesophageal reflux disease without esophagitis [...] Description 04/08/2025 Procedure Pass Echo Lab [address] [place] [address] 07/30/2025 10:45 AM EST Office Visit [facility] [address] [place] [address] [place] [address] Harris Lennon MD [address] [place] [address], [address] [place] [address] 09/09/2025 11:15 AM EST Appointment Echo Lab [address] [place] [address] Stacie Gruber, PACony [address] [place] [address] 09/27/2025 10:40 AM EST Office Visit [facility] [address] [place] [address] 3rd Floor, [address] [place] [address] Davidson Gunter MD [address] [place] [address], [address] [address] 02/14/2026 10:10 AM EDT Office Visit [facility] [address] [place] [address] [place] [address] Talon Seth DO 22 [place] [address] [email or web address] documented as of this encounter Results * (ABNORMAL) C-Reactive Protein (02/13/2018 2:31 PM EDT) C REACTIVE PROTEIN 6.4(H) 0.0 - 4.0 mg/L [facility] Comment:New Reference Range and Measuring Units effective 01/25/18. Blood 02/13/2018 2:31 PM EDT 02/13/2018 2:36 PM EDT us Javier Chauhan MD LAB BLOOD ORDERABLES Final R esult [facility] [address] [place] [address] * (ABNORMAL) Comprehensive metabolic panel (02/13/2018 2:31 PM EDT) Pathologist [facility] SODIUM 133 133 - 146 mmol/L [facility] POTASSIUM 5.6(H) 3.3 - 5.1 mmol/L [facility] CHLORIDE 94(L) 96 - 108 mmol/L [facility] CO2 27 21 - 35 mmol/L [facility] BUN 14 6 - 19 mg/dL [facility] CREATININE 0.60 0.5 - 1.5 mg/dL [facility] GLUCOSE 108(H) 70 - 99 mg/dL [facility] ALBUMIN 4.2 3.9 - 4.8 g/dL [facility] TOTAL PROTEIN 6.6 6.5 - 8.0 g/dL [facility] CALCIUM 9.3 8.4 - 10.3 mg/dL [facility] ALKALINE PHOSPHATASE 43 39 - 117 U/L [facility] TOTAL BILIRUBIN 0.2 0.0 - 1.2 mg/dL [facility] AST 20 0 - 37 U/L [facility] ALT 14 0 - 40 U/L [facility] GLOBULIN 2.4 1 - 4.8 g/dL [facility] EGFR 90 >59 mL/min/1.7 3m2 [facility] Comment:If patient is black, multiply result by 1.159. The eGFR calculation has changed from the MDRD equation to the CKD-EPI equation as of November 15, 2017. ANION GAP 18 10 - 20 mmol/L [facility] Blood 02/13/2018 2:31 PM EDT 02/13/2018 2:36 PM EDT us Javier Chauhan MD LAB BLOOD ORDERABLES Final R esult Performing Organization Address City/[facility]/ZIP Co de Phone Number [address] [address] * Tissue transglutaminase IgA (02/13/2018 2:31 PM EDT) TTG IGA ANTIBODY <1.2 <4.0 (Negative) U/mL [facility] DPT OF LAB MED AND PAT+ Blood 02/13/2018 2:31 PM EDT 02/13/2018 2:37 PM EDT us Javier Chauhan MD LAB BLOOD ORDERABLES Final R esult Performing Organization Address City/[facility]/ZIP Co de Phone Number [facility] DPT OF LAB MED AND PAT+ [address] [place] [address] * Immunoglobulin A (02/13/2018 2:31 PM EDT) IgA 70 70 - 400 mg/dL [facility] Blood 02/13/2018 2:31 PM EDT 02/13/2018 2:36 PM EDT Javier Chauhan MD LAB BLOOD ORDERABLES Final R esult Performing Organization Address City/[facility]/ZIP Co de Phone Number [address] [address] * Gliadin deamidated antibody, IgG/IgA (02/13/2018 2:31 PM EDT) Gliadin Ab, IGA <10.0 <20.0 (Negative) U [facility] DPT OF LAB MED AND PAT+ GLIADIN AB IGG <10.0 <20.0 (Negative) U [facility] DPT OF LAB MED AND PAT+ Blood 02/13/2018 2:31 PM EDT 02/13/2018 2:37 PM EDT us Javier Chauhan MD LAB BLOOD ORDERABLES Final R esult [facility] DPT OF LAB MED AND PAT+ [address] [place] [address] * (ABNORMAL) CBC and differential (02/13/2018 2:31 PM EDT) WBC 8.84 3.40 - 11.20 K/uL [facility] RBC 4.07 3.80 - 4.80 M/uL [facility] HGB 12.3 12.0 - 15.0 g/dL [facility] HCT 38.2 36.0 - 46.0 % [facility] PLT 333 130 - 400 K/uL [facility] MCV 93.9 79.0 - 98.0 fL [facility] MCH 30.2 27.0 - 34.8 pg [facility] MCHC 32.2 31.5 - 36.0 g/dL [facility] RDW 14.4 10.8 - 14.6 % [facility] MPV 9.8 9.4 - 12.4 fl [facility] NRBC 0.00 /100 WBCs [facility] ABSOLUTE NRBC 0.00 K/uL [facility] DIFF METHOD Auto [facility] NEUTS 79.6(H) 45.30 - 77.70 % [facility] LYMPHS 12.6 12.30 - 39.70 % [facility] MONOS 6.2 4.10 - 12.80 % [facility] EOS 0.8 0 - 7.2 % [facility] BASOS 0.3 0 - 2.80 % [facility] Granulocytes, immature (%) 0.5 0.0 - 0.9 % [facility] ABSOLUTE NEUTS 7.04 1.40 - 7.70 K/uL [facility] ABSOLUTE LYMPHS 1.11 0.60 - 3.20 K/uL [facility] ABSOLUTE MONOS 0.55 0.11 - 0.59 K/uL [facility] ABSOLUTE EOS 0.07 0.01 - 0.50 K/uL [facility] ABSOLUTE BASOS 0.03 0.00 - 0.08 K/uL [facility] Granulocytes, immature 0.04 0.00 - 0.05 K/uL [facility] Blood 02/13/2018 2:31 PM EDT 02/13/2018 2:36 PM EDT us Javier Chauhan MD LAB BLOOD ORDERABLES Final R esult [facility] [address] [place] [address] documented in this encounter Visit Diagnoses Diagnosis [...] as of this encounter Care Teams Avionics Shop Supervisor Relationship Specialty Start Date End Date Dmaien Lance MD [email or web address] PCP - General Internal Medicine 07/18/17 09/14/18 Xuan Ferraro DO [address] [place] [address] [email or web address] PCP - General 09/15/18 01/15/21 Harris Lennon MD [address] [place] [address], [address] [place] [address] [email or web address] PCP - General Internal Medicine 01/16/21 Damien Lnace MD [address] [place] [address] Floor 1 [place] [address] [email or web address] Insurance Assigned Provider 07/16/17 06/09/19 Xuan Ferraro DO [address] [place] [address] [email or web address] Insurance Assigned Provider 06/09/19 10/06/21 Kory Vogt MD [address] [place] [address] [email or web address] Gastroenterology 10/07/21 Xuan Ferraro DO [address] [place] [address] [email or web address] Insurance Assigned Provider 06/09/19 12/19/21 Harris Lennon MD [address] [place] [address], [address] [place] [address] [email or web address] Insurance Assigned Provider 12/17/23 Margarita Davidson RN [address] [place] [address], [address] [place] [address] [email or web address] PHC Motor Vehicle Licence Examiner 06/02/22 06/29/22 Margarita Davidson RN [address] [place] [address], [address] [address] [email or web address] PHC Motor Vehicle Licence ExaminerField Sales Specialist 07/01/22 02/17/25 Jyoti Aviles, OT [address] [place] [address] [email or web address] Transitions Motor Vehicle Licence ExaminerMass Spectrometry Specialist Therapy 12/12/2312/14/23 documented as of this encounter Additional Source Comments The information contained in this document represents components of the legal health record. It is not the complete legal health record.[facility]
--- OUTSIDE RECORDS SUMMARY | 2025-07-12 11:55 | XMS_ITS | Encounter Summary ---
Author Organization [facility] Address [address] [place] [address] Phone Care Team Providers Care Teen Counselor Name Role Phone Xuan Ferraro DO Primary Care Provider + [phone] Damien Lance MD Unavailable [phone] Xuan Ferraro DO Unavailable [phone] Harris Lennon MD Primary Care Provider + [phone] Koyr Vogt MD Unavailable Xuan Ferraro DO Unavailable [phone] Harris Lennon MD Unavailable [phone] Margarita Davidson RN Unavailable [email or web address] Margarita Davidson RN Unavailable [email or web address] Jyoti Aviles OT Unavailable [phone] Encounter Details Date Type Department Care Team (Late st Contact Info) Description 02/13/2019 Ancillary Orders [facility] [address] [place] [address] Xuan Ferraro DO [address] [place] [address] [email or web address] Breast screening Social History Tobacco Use [...] Info) Description 04/08/2025 Procedure Pass Echo Lab [address] [address] 07/30/2025 10:45 AM EST Office Visit [facility] [place] [facility] [address] [place] [address] [place] [address] Harris Lennon MD [address] [place] [address], [address] [place] [address] 09/09/2025 11:15 AM EST Appointment Echo Lab [address] [place] [address] Stacie Gruber PA-C [address] [place] [address] 09/27/2025 10:40 AM EST Office Visit [facility] [address] [place] [address] 3rd Floor, [address] [place] [address] Davidson Gunter MD [address] [place] [address], [address] [place] [address] 02/14/2026 10:10 AM EDT Office Visit [facility] [address] [place] [address] [place] [address] Talon Seth DO [address] [place] [address] documented as of this encounter Results * [...] There are scattered fibroglandular densities. POS - [id number] Narrative 05/15/2019 1:58 PM EDT Full-field digital [...] There are scattered fibroglandular densities. POS - [id number] us Xuan Ferraro DO IMG MG EXAMS [...] documented as of this encounter Care Teams Teen Counselor Relationship Specialty Start Date End Date Xuan Ferraro DO [address] [place] [address] [email or web address] PCP - General 09/15/18 01/15/21 Harris Lennon MD [address] [facility], [address] [place] [address] PCP - General Internal Medicine 01/16/21 Damien Lance MD [address] [facility] Floor 1 [place] [address] [email or web address] Insurance Assigned Provider 07/16/17 06/09/19 Xuan Ferraro DO [address] [place] [address] [email or web address] Insurance Assigned Provider 06/09/19 10/06/21 Kory Vogt MD [address] [place] [address] [email or web address] Gastroenterology 10/07/21 Xuan Ferraro DO [address] [place] [address] [email or web address] Insurance Assigned Provider 06/09/19 12/19/21 Harris Lennon MD [address] [place] [address], [address] [place] [address] [email or web address] Insurance Assigned Provider 12/17/23 Margarita Davidson RN [address] [place] [address], [address] [place] [address] [email or web address] PHCM Moshgiach 06/02/22 06/29/22 Margarita Davidson RN [address] [place] [address], [address] [place] [address] [email or web address] PHC MoshgiachWorkers Compensation Paralegal 07/01/22 02/17/25 Jyoti Aivles, OT [address] [place] [address] [email or web address] Transitions MoshgiachGolf Cart Maker Therapy 12/12/2312/14/23 documented as of this encounter Additional Source Comments The information contained in this document represents components of the legal health record. It is not the complete legal health record.[facility]
--- OUTSIDE RECORDS SUMMARY | 2025-07-12 11:55 | XMS_ITS | Encounter Summary ---
Author Organization [facility] Address [address] [place] [address] Phone Care Team Providers Care Floral Merchandiser Name Role Phone Xuan Ferraro DO Primary Care Provider Xuan Ferraro DO Unavailable [phone] Harris Lennon MD Primary Care Provider Kory Vogt MD Unavailable Xuan Ferraro DO Unavailable Harris Lennon MD Unavailable [phone] Margarita Davidson RN Unavailable [email or web address] Margarita Davidson RN Unavailable [email or web address] Jyoti Aviles OT Unavailable [phone] Encounter Details Date Type Department Care Team (Late st Contact Info) Description 11/08/2019 Ancillary Orders Non-Invasive Cardiology [address] [place] [address] Xuan Ferraro DO [address] [place] [address] [email or web address] chest pain Social History Tobacco Use [...] Description 04/08/2025 Procedure Pass Echo Lab [address] [place] [address] 07/30/2025 10:45 AM EST Office Visit [facility] [place] [address] [place] [address] [place] [address] Harris Lennon MD [address] [place] [address], [address] [place] [address] 09/09/2025 11:15 AM EST Appointment Echo Lab [address] [place] [address] Stacie Gruber PA-C [address] [place] [address] 09/27/2025 10:40 AM EST Office Visit [facility] [address] [place] [address] 3rd Floor, [address] [place] [address] Davidson Gunter MD [address] [place] [address], [address] [place] [address] 02/14/2026 10:10 AM EDT Office Visit [facility] [address] [place] [address] [place] [address] Talon Seth DO [address] [place] [address] documented as of this encounter Results * NC Stress Result for Nuclear Stress Test (11/08/2019 10:14 AM EST) Max BP Systolic 158 mmHg [facility] Max BP Diastolic 70 mmHg [facility] Max HR 123 BPM [facility] Resting HR 78 BPM [facility] Resting BP Systolic 150 mmHg [facility] Resting BP Diastolic 72 mmHg [facility] Peak METS 2.3 METS [facility] Peak HR 118 BPM [facility] Peak BP Systolic 136 mmHg [facility] Peak BP Diastolic 76 mmHg [facility] Anatomical Region Laterality Modality Heart Other [...] predicted heart rate. Rate pressure product was [address]. REPORT: Patient exercised for 4:00 minutes on [...] documented as of this encounter Care Teams Floral Merchandiser Relationship Specialty Start Date End Date Xuan Ferraro DO [address] [place] [address] [email or web address] PCP - General 09/15/18 01/15/21 Harris Lennon MD [address] [place], [place] [address] [place] [address] [email or web address] PCP - General Internal Medicine 01/16/21 Xuan Ferraro DO [address] [place] [address] [email or web address] Insurance Assigned Provider 06/09/19 10/06/21 Kory Vogt MD [address] [place] [address] [email or web address] Gastroenterology 10/07/21 Xuan Ferraro DO [address] [place] [address] [email or web address] Insurance Assigned Provider 06/09/19 12/19/21 Harris Lennon MD [address] [place], [place] [address] [place] [address] [email or web address] Insurance Assigned Provider 12/17/23 Margarita Davidson RN [address] [place] [address], [address] [place] [address] [email or web address] PHCM Communications Director 06/02/22 06/29/22 Margarita Davidson RN [address] [place] [address], [address] [place] [address] PHC Communications DirectorPilot Plant Supervisor 07/01/22 02/17/25 Jyoti Aviles, OT [address] [place] [address] [email or web address] Transitions Communications DirectorSchool Bus Driver/Custodian Therapy 12/12/2312/14/23 documented as of this encounter Additional Source Comments The information contained in this document represents components of the legal health record. It is not the complete legal health record.[facility]
--- OUTSIDE RECORDS SUMMARY | 2025-07-12 11:56 | XMS_ITS | Encounter Summary ---
Author Organization [facility] Address [address] [place] [address] Phone Care Team Providers Care Community Nurse Name Role Phone Xuan Ferraro DO Primary Care Provider + [phone] Xuan Ferraro DO Unavailable [phone] Harris Lennon MD Primary Care Provider [phone] Kory Vogt MD Unavailable Xuan Ferraro DO Unavailable [phone] Harris Lennon MD Unavailable [phone] Margarita Davidson RN Unavailable [email or web address] Margarita Davidson RN Unavailable [email or web address] Jyoti Aviles OT Unavailable [phone] Encounter Details Date Type Department Care Team (Late st Contact Info) Description 05/21/2020 Procedure Pass [facility], [address] [address] Social History Tobacco Use Types Packs/Day Years [...] Description 04/08/2025 Procedure Pass Echo Lab [address] [place] [address] 07/30/2025 10:45 AM EST Office Visit [facility] Medicine [address] [place] [address] [place] [address] Harris Lennon MD [address] [place] [address], [address] [place] [address] 09/09/2025 11:15 AM EST Appointment Echo Lab [address] [place] [address] Stacie Gruber PA-C [address] [place] [address] 09/27/2025 10:40 AM EST Office Visit [facility] [address] [place] [address] 3rd Floor, [address] [place] [address] Davidson Gunter MD [address] [place] [address], [address] [place] [address] 02/14/2026 10:10 AM EDT Office Visit [facility] [address] [place] [address] [place] [address] Talon Seth DO [address] [place] [address] documented as of this encounter Visit Diagnoses [...] as of this encounter Care Teams Community Nurse Relationship Specialty Start Date End Date Xuan Ferraro DO [address] [place] [address] [email or web address] PCP - General 09/15/18 01/15/21 Harris Lennon MD [address] [place] [address], [address] [place] [address] [email or web address] PCP - General Internal Medicine 01/16/21 Xuan Ferraro DO [address] [place] [address] [email or web address] Insurance Assigned Provider 06/09/19 10/06/21 Kory Vogt MD [address] [place] [address] Gastroenterology 10/07/21 Xuan Ferraro DO [address] [place] [address] [email or web address] Insurance Assigned Provider 06/09/19 12/19/21 Harris Lennon MD [address] [place] [address], [address] [place] [address] [email or web address] Insurance Assigned Provider 12/17/23 Margarita Davidson RN [address] [place] [address], [address] [place] [address] [email or web address] PHCM Cleaning Custodian 06/02/22 06/29/22 Margarita Davidson, RN 22 [facility], [address] [place] [address] [email or web address] PHC Cleaning CustodianSocial Science Teacher 07/01/22 02/17/25 Jyoti Aviles, OT [address] [place] [address] [email or web address] Transitions Cleaning CustodianEtcher Apprentice Therapy 12/12/2312/14/23 documented as of this encounter Additional Source Comments The information contained in this document represents components of the legal health record. It is not the complete legal health record.[facility]
--- OUTSIDE RECORDS SUMMARY | 2025-07-12 11:56 | XMS_ITS | Encounter Summary ---
Author Organization [facility] Address [address] [place] [address] Phone Care Team Providers Care Unemployment Benefits Claims Taker Name Role Phone Harris Lennon MD Primary Care Provider [phone] Kory Vogt MD Unavailable Harris Lennon MD Unavailable [phone] Margarita Davidson RN Unavailable [email or web address] Encounter Details Date Type Department Care Team (Latest Contact Info) Description 09/14/2024 Transcribe Orders [facility] Specimen Processing [address] [place] [address] Harris Lennon MD 22 [facility], [address] [place] [address] [email or web address] Other osteoporosis without current pathological [...] Info) Description 04/08/2025 Procedure Pass Echo Lab [address] [place] [address] 07/30/2025 10:45 AM EST Office Visit [facility] Medicine [address] [place] [address] [place] [address] Harris Lennon MD 22 [facility], [address] [place] [address] 09/09/2025 11:15 AM EST Appointment Echo Lab [address] [place] [address] Stacie Gruber PA-C [address] [place] [address] 09/27/2025 10:40 AM EST Office Visit [facility] [address] [place] [address] 3rd Floor, [address] [place] [address] Davidson Gunter MD 22 [facility], [address] [place] [address] [email or web address] 02/14/2026 10:10 AM EDT Office Visit [facility] [address] [place] [address] Talon Seth DO [address] [place] [address] [email or web address] documented as of this encounter Results * (ABNORMAL) Calcium, 24 hour urine (09/17/2024 10:33 AM EST) URINE CALCIUM 7.9 mg/dL [facility] CALCIUM OUTPUT 87(L) 100 - 300 mg/total output [facility] Urine (Urine) 09/17/2024 10: 33 AM EST 09/17/2024 10:39 AM EST us Talon Seth DO URINE ORDERABLES Final Result [address] [address] * (ABNORMAL) Creatinine, 24 hr urine (09/17/2024 10:33 AM EST) URINE CREATININE 41 mg/dL [facility] CREATININE OUTPUT 451(L) 600 - 1,800 mg/total output [facility] Urine (Urine) 09/17/2024 10: 33 AM EST 09/17/2024 10:39 AM EST us Talon Seth DO URINE ORDERABLES Final Result [address] [address] documented in this encounter Visit Diagnoses Diagnosis Other osteoporosis without current pathological fracture- Primary documented in this encounter Additional Health Concerns Assessment Noted Time PHQ-9 Depression Total Score: 15 018 2:17 PM EST PHQ-2 Depression Total Score: 0 09/06/20 10:43 AM EST documented as of this encounter Care Teams Unemployment Benefits Claims Taker Relationship Specialty Start Date End Date Harris Lennon MD [address] [place] [address], [address] [place] [address] PCP - General Internal Medicine 01/16/21 Kory Vogt MD [address] [place] [address] Gastroenterology 10/07/21 Harris Lennon MD [address] [place] [address], [address] [place] [address] Insurance Assigned Provider 12/17/23 Margarita Davidson RN [address] [place] [address], [address] [place] [address] [email or web address] PHCM Fusing Machine OperatorInternal Medicine Physician 07/01/22 02/17/25 documented as of this encounter Additional Source Comments The information contained in this document represents components of the legal health record. It is not the complete legal health record.[facility]
--- OUTSIDE RECORDS SUMMARY | 2025-07-12 11:56 | XMS_ITS | Encounter Summary ---
Author Organization [facility] Address [address] [place] [address] Phone Care Team Providers Care Loader Operator Name Role Phone Harris Lennon MD Primary Care Provider [phone] Kory Vogt MD Unavailable Harris Lennon MD Unavailable [phone] Margarita Davidson RN Unavailable [email or web address] Encounter Details Date Type Department Care Team (Late st Contact Info) Description 08/02/2024 Procedure Pass [facility], [address] [address] Social History Tobacco Use Types Packs/Day Years [...] Description 04/08/2025 Procedure Pass Echo Lab [address] [place] [address] 07/30/2025 10:45 AM EST Office Visit [facility] Medicine [address] [place] [address] [place] [address] Harris Lennon MD [address] [place] [address], [address] [place] [address] 09/09/2025 11:15 AM EST Appointment Echo Lab [address] [place] [address] Stacie Gruber PA-C [address] [place] [address] 09/27/2025 10:40 AM EST Office Visit [facility] [address] [place] [address] 3rd Floor, [address] [place] [address] Davidson Gunter MD [address] [place] [address], [address] [place] [address] 02/14/2026 10:10 AM EDT Office Visit [facility] [address] [place] [address] Talon Seth DO 22 [place] [address] [email or web address] documented as of this encounter Visit Diagnoses Not on filedocumented in this encounter Additional Health Concerns Assessment Noted Time PHQ-9 Depression Total Score: 15 018 2:17 PM EST PHQ-2 Depression Total Score: 0 09/06/20 24 10:43 AM EST documented as of this encounter Care Teams Loader Operator Relationship Specialty Start Date End Date Harris Lennon MD [address] [place] [address], [address] [address] PCP - General Internal Medicine 01/16/21 Kory Vogt MD [address] [place] [address] [email or web address] Gastroenterology 10/07/21 Harris Lennon MD [address] [place] [address] [email or web address] Insurance Assigned Provider 12/17/23 Margarita Davidson RN [address] [place] [address] [email or web address] PHCM Bag BleacherLead Business Systems Analyst 07/01/22 02/17/25 documented as of this encounter Additional Source Comments The information contained in this document represents components of the legal health record. It is not the complete legal health record.[facility]
--- OUTSIDE RECORDS SUMMARY | 2025-07-12 11:56 | XMS_ITS | Encounter Summary ---
Author Organization [facility] Address [address] [place] [address] Phone Care Team Providers Care Oncology Pharmacist Name Role Phone Harris Lennon MD Primary Care Provider [phone] Kory Vogt MD Unavailable Harris Lennon MD Unavailable [phone] Margarita Davidson RN Unavailable [email or web address] Jyoti vAiles OT Unavailable [phone] Encounter Details Date Type Department Care Team (Latest Contact Info) Description 08/02/2022 Transcribe Orders Virtual Department [address] [place], [place] [id number] Harris Lennon MD 22 [facility], [address] [place] [address] [email or web address] Breast screening (Primary Dx) Social [...] Description 04/08/2025 Procedure Pass Echo Lab [address] [place] [address] 07/30/2025 10:45 AM EST Office Visit [address] [place] [address] Harris Lennon MD [address] [place] [address], [address] [place] [address] 09/09/2025 11:15 AM EST Appointment Echo Lab [address] [place] [address] Stacie Gruber PA-C [address] [place] [address] 09/27/2025 10:40 AM EST Office Visit [facility] [address] [place] [address] 3rd Floor, [address] [place] [address] Davidson Gunter MD [address] [place] [address], [address] [place] [address] 02/14/2026 10:10 AM EDT Office Visit [facility] [address] [place] [address] [place] [address] Talon Seth DO [address] [place] [address] documented as of this encounter Results * [...] documented as of this encounter Care Teams Oncology Pharmacist Relationship Specialty Start Date End Date Harris Lennon MD [address] [place] [address], [address] [place] [address] PCP - General Internal Medicine 01/16/21 Kory Vogt MD [address] [place] [address] Gastroenterology 10/07/21 Harris Lennon MD [address] [place] [address], [address] [place] [address] Insurance Assigned Provider 12/17/23 Margarita Davidson, RN [address] [place] [address], [address] [place] [address] [email or web address] PHCM Obgyn Hospitalist PhysicianClinical Geneticist 07/01/22 02/17/25 Jyoti Aviles, OT [address] [place] [address] Transitions Obgyn Hospitalist PhysicianManager Office Services Therapy 12/12/2312/14/23 documented as of this encounter Additional Source Comments The information contained in this document represents components of the legal health record. It is not the complete legal health record.[facility]
--- OUTSIDE RECORDS SUMMARY | 2025-07-12 11:56 | XMS_ITS | Encounter Summary ---
Author Organization [facility] Address [address] [place] [address] Phone Care Team Providers Care Sort Line Worker Name Role Phone Harris Lennon MD Primary Care Provider [phone] Kory Vogt MD Unavailable Harris Lennon MD Unavailable [phone] Margarita Davidson RN Unavailable [email or web address] Encounter Details Date Type Department Care Team (Late st Contact Info) Description 03/14/2024 Procedure Pass Echo [facility] [address] [place] [address] Social History Tobacco Use Types Packs/Day [...] Description 04/08/2025 Procedure Pass Echo Lab [address] [place] [address] 07/30/2025 10:45 AM EST Office Visit [facility] Family Medicine [address] [place] [address] [place] [address] Harris Lennon MD [address] [place] [address], [address] [place] [address] 09/09/2025 11:15 AM EST Appointment Echo Lab [address] [place] [address] Stacie Gruber PA-C [address] [place] [address] 09/27/2025 10:40 AM EST Office Visit [facility] [address] [place] [address] 3rd Floor, [address] [place] [address] Davidson Gunter MD [address] [place] [address], [address] [place] [address] 02/14/2026 10:10 AM EDT Office Visit [facility] [address] [place] [address] [place] [address] Talon Seth DO [address] [place] [address] documented as of this encounter Visit Diagnoses Not on filedocumented in this encounter Additional Health Concerns Assessment Noted Time PHQ-9 Depression Total Score: 15 018 2:17 PM EST PHQ-2 Depression Total Score: 0 09/06/20 24 10:43 AM EST documented as of this encounter Care Teams Sort Line Worker Relationship Specialty Start Date End Date Harris Lennon MD [address] [place] [address], [address] [place] [address] [email or web address] PCP - General Internal Medicine 01/16/21 Kory Vogt MD [address] [place] [address] [email or web address] Gastroenterology 10/07/21 Harris Lennon MD [address] [place] [address], [address] [place] [address] [email or web address] Insurance Assigned Provider 12/17/23 Margarita Davidson RN [address] [place] [address], [address] [place] [address] [email or web address] PHC Combination Machine Tool SetterProvider Education Specialist 07/01/22 02/17/25 documented as of this encounter Additional Source Comments The information contained in this document represents components of the legal health record. It is not the complete legal health record.[facility]
--- OUTSIDE RECORDS SUMMARY | 2025-07-12 11:56 | XMS_ITS | Encounter Summary ---
Author Organization [facility] Address [address] [place] [address] Phone Care Team Providers Care Medart Operator Name Role Phone Harris Lennon MD Primary Care Provider [phone] Kory Vogt MD Unavailable Harris Lennon MD Unavailable [phone] Margarita Davidson RN Unavailable [email or web address] Margarita Davidson RN Unavailable [email or web address] Jyoti Aviles OT Unavailable [phone] Encounter Details Date Type Department Care Team (Late st Contact Info) Description 12/23/2021 Procedure Pass [facility] [place] [place] [address] Social History Tobacco Use Types Packs/Day Years [...] Description 04/08/2025 Procedure Pass Echo Lab [address] [place] [address] 07/30/2025 10:45 AM EST Office Visit [facility] [address] [place] [address] [place] [address] Harris Lennon MD [address] [place] [address], [address] [place] [address] 09/09/2025 11:15 AM EST Appointment Echo Lab [address] [place] [address] Stacie Gruber PA-C [address] [place] [address] 09/27/2025 10:40 AM EST Office Visit [facility] [address] [place] [address] 3rd Floor, [address] [place] [address] Davidson Gunter MD [address] [place] [address], [address] [place] [address] 02/14/2026 10:10 AM EDT Office Visit [facility] [address] [place] [address] [place] [address] Talon Seth DO [address] [place] [address] documented as of this encounter Visit Diagnoses [...] documented as of this encounter Care Teams Medart Operator Relationship Specialty Start Date End Date Harris Lennon MD [address] [place] [address], [address] [place] [address] PCP - General Internal Medicine 01/16/21 Kory Vogt MD [address] [place] [address] Gastroenterology 10/07/21 Harris Lennon MD [address] [place] [address], [address] [place] [address] Insurance Assigned Provider 12/17/23 Margarita Davidson RN [address] [place] [address], [address] [place] [address] [email or web address] PHCM Brush Machine Setter 06/02/22 06/29/22 Margarita Davidson RN [address] [place] [address], [address] [place] [address] [email or web address] PHC Brush Machine SetterArea Secretary 07/01/22 02/17/25 Jyoti Aviles, OT [address] [place] [address] [email or web address] Transitions Brush Machine SetterAt&T Retailer Sales Consultant Therapy 12/12/2312/14/23 documented as of this encounter Additional Source Comments The information contained in this document represents components of the legal health record. It is not the complete legal health record.[facility]
--- OUTSIDE RECORDS SUMMARY | 2025-07-12 11:56 | XMS_ITS | Encounter Summary ---
Author Organization [facility] Address [address] [place] [address] Phone Care Team Providers Care Field Scout Name Role Phone Xuan Ferraro DO Unavailable [phone] Harris Lennon MD Primary Care Provider [phone] Kory Vogt MD Unavailable Xuan Ferraro DO Unavailable [phone] Harris Lennon MD Unavailable [phone] Margarita Davidson RN Unavailable [email or web address] Margarita Davidson RN Unavailable [email or web address] Jyoti Aviles OT Unavailable [phone] Reason for Referral * MRI/CAT Scan - Closed Specialty Diagnoses / Procedures Referred By Contac t Referred To Contact Radiology Diagnoses RLQ abdominal pain Weight loss, abnormal Procedures CT Abdomen/Pelvis Javier Chauhan MD Phone: tel: fax: [email or web address] Referral ID Status Reason Start Date Expiration Date Visits Re quested Visits Authorized [id number] Closed 04/23/2021 04/23/2022 1 1 Encounter Details Date Type Department Care Team (Latest Contact Info) Description 04/23/2021 Transcribe Orders Virtual Department [address] [place] [address] [place] [address] Javier Chauhan MD [address] [place] [address] RLQ abdominal pain (Primary Dx); Weight loss, [...] Description 04/08/2025 Procedure Pass Echo Lab [address] [place] [address] 07/30/2025 10:45 AM EST Office Visit [facility] [place] [facility] [address] [place] [address] [place] [address] Harris Lennon MD [address] [place] [address], [address] [place] [address] 09/09/2025 11:15 AM EST Appointment Echo Lab [address] [place] [address] Stacie Gruber PA-C [address] [place] [address] 09/27/2025 10:40 AM EST Office Visit [facility] [address] [place] [address] 3rd Floor, [address] [place] [address] Davidson Gunter MD [address] [place] [address], [address] [place] [address] 02/14/2026 10:10 AM EDT Office Visit [facility] [address] [place] [address] Rolo Talon, DO [address] [place] [address] [email or web address] [...] documented as of this encounter Care Teams Field Scout Relationship Specialty Start Date End Date Harris Lennon MD [address] [place] [address], [address] [place] [address] PCP - General Internal Medicine 01/16/21 Xuan Ferraro DO [address] [place] [address] [email or web address] Insurance Assigned Provider 06/09/19 10/06/21 Kory Vogt MD [address] [place] [address] [email or web address] 10/07/21 Xuan Ferraro DO [address] [place] [address] [email or web address] Insurance Assigned Provider 06/09/19 12/19/21 Harris Lennon MD [address] [place] [address], [address] [place] [address] Insurance Assigned Provider 12/17/23 Margarita Davidson RN [address] [place] [address], [address] [place] [address] [email or web address] PHCM Tailercpa 06/02/22 06/29/22 Margarita Davidson RN [address] [place] [address], [address] [place] [address] [email or web address] PHCM TailercpaRepairer Welding Systems And Equipment 07/01/22 02/17/25 Jyoti Aviles, OT [address] [place] [address] [email or web address] Transitions TailercpaPipe Fitter Supervisor Maintenance Therapy 12/12/2312/14/23 documented as of this encounter Additional Source Comments The information contained in this document represents components of the legal health record. It is not the complete legal health record.[facility]
--- OUTSIDE RECORDS SUMMARY | 2025-07-12 11:56 | XMS_ITS | Encounter Summary ---
Author Organization [facility] Address [address] [place] [address] Phone Care Team Providers Care Quality Compliance Consultant Name Role Phone Xuan Ferraro DO Unavailable [phone] Harris Lennon MD Primary Care Provider [phone] Kory Vogt MD Unavailable Xuan Ferraro DO Unavailable [phone] Harris Lennon MD Unavailable [phone] Margarita Davidson RN Unavailable [email or web address] Margarita Davidson RN Unavailable [email or web address] Jyoti Aviles OT Unavailable [phone] Encounter Details Date Type Department Care Team (Late st Contact Info) Description 04/23/2021 Procedure Pass [facility], Ct Scan - [address] [address] Social History Tobacco Use Types Packs/Day Years [...] Info) Description 04/08/2025 Procedure Pass Echo Lab [address] [place] [address] 07/30/2025 10:45 AM EST Office Visit [facility] Medicine [address] [place] [address] [place] [address] Harris Lennon MD [address] [place] [address], [address] [place] [address] 09/09/2025 11:15 AM EST Appointment Echo Lab [address] [place] [address] Stacie Gruber PA-C [address] [place] [address] 09/27/2025 10:40 AM EST Office Visit [facility] [address] [place] [address] 3rd Floor, [address] [place] [address] Davidson Gunter MD [address] [place] [address], [address] [place] [address] 02/14/2026 10:10 AM EDT Office Visit [facility] [address] [place] [address] [place] [address] Talon Seth DO [address] [place] [address] documented as of this encounter Visit Diagnoses [...] documented as of this encounter Care Teams Quality Compliance Consultant Relationship Specialty Start Date End Date Harris Lennon MD [address] [place] [address], [address] [place] [address] [email or web address] PCP - General Internal Medicine 01/16/21 Xuan Ferraro DO [address] [place] [address] [email or web address] Insurance Assigned Provider 06/09/19 10/06/21 Kory Vogt MD [address] [place] [address] [email or web address] 10/07/21 Xuan Ferraro DO [address] [place] [address] [email or web address] Insurance Assigned Provider 06/09/19 12/19/21 Harris Lennon MD [address] [place] [address], [address] [place] [address] [email or web address] Insurance Assigned Provider 12/17/23 Margarita Davidson RN [address] [place] [address], [address] [place] [address] [email or web address] PHCM Cook Pickled Meat 06/02/22 06/29/22 Margarita Davidson RN [address] [place] [address], [address] [place] [address] [email or web address] PHCM Cook Pickled MeatLime Plant Operator 07/01/22 02/17/25 Jyoti Aviles, OT [address] [place] [address] [email or web address] Transitions Cook Pickled MeatWheat Combine Driver Therapy 12/12/2312/14/23 documented as of this encounter Additional Source Comments The information contained in this document represents components of the legal health record. It is not the complete legal health record.[facility]
--- OUTSIDE RECORDS SUMMARY | 2025-07-12 11:56 | XMS_ITS | Patient Health Record ---
Author Organization [facility] [place] Address [address] [facility] [place] [address] Care Team Providers Care English As A Second Language Teacher Name Role Phone Damien Lance Primary Care Provider Brianne Arcos Unavailable [phone] Allergies Allergen (clinical drug ingredient) Drug/Non Drug [...] Medicare National Govt S[employer] [address] [facility] [address] [id number] Lindsey José Self - patient is the insured [employer] Blue [employer] [address] [place] [address] [phone] [id number] Lindsey José Self - patient is the insured Medical (General) History Medical History History ICD Code osteoarthritis asthma Back,Hip,and Knee pain Broken bones Cholesterol Dementia Depression Heart disease Hypertension Neuropathy Reflux chronic sinusitis Measles Mumps Chicken pox Joint implants/screws Transfusions
--- OUTSIDE RECORDS SUMMARY | 2025-07-12 11:57 | XMS_ITS | Encounter Summary ---
Author Organization [facility] Address [address] [place] [address] Phone Care Team Providers Care Records Associate Name Role Phone Harris Lennon MD Primary Care Provider [phone] Kory Vogt MD Unavailable Harris Lennon MD Unavailable [phone] Margarita Davidson RN Unavailable [email or web address] Encounter Details Date Type Department Care Team (Late st Contact Info) Description 05/01/2024 Telephone [facility] [address] [place], [place] [id number] Opal Billy, RN [address] [place] [address] [email or web address] Social History Tobacco Use Types Packs/Day Years [...] - 05/01/2024 11:31 AM EDT Dalila from [facility] calls to report critical INR of 1.4. patient denies missed dose or any changes in medication. This week she will take 5mg today and tomorrow, 2.5mg on , and will be seen again on Tuesday. documented in this encounter Plan of Treatment Upcoming Encounters Date Type Department Care Team (Late st Contact Info) Description 04/08/2025 Procedure Pass Echo Lab [address] [place] [address] 07/30/2025 10:45 AM EST Office Visit [facility] [address] [place] [address] [place] [address] Harris Lennon MD [address] [place] [address], [address] [place] [address] 09/09/2025 11:15 AM EST Appointment Echo Lab [address] [place] [address] Stacie Gruber PA-C [address] [place] [address] 09/27/2025 10:40 AM EST Office Visit [facility] [address] [place] [address] 3rd Floor, [address] [place] [address] Davidson Gunter MD [address] [place] [address], [address] [place] [address] 02/14/2026 10:10 AM EDT Office Visit [facility] 22 [place] [address] Talon Seth DO 22 [place] [address] documented as of this encounter Visit Diagnoses Not on filedocumented in this encounter Additional Health Concerns Assessment Noted Time PHQ-9 Depression Total Score: 15 018 2:17 PM EST PHQ-2 Depression Total Score: 0 06/22/20 23 1:25 PM EDT documented as of this encounter Care Teams Records Associate Relationship Specialty Start Date End Date Harris Lennon MD [address] [place] [address], [address] [place] [address] PCP - General Internal Medicine 01/16/21 Kory Vogt MD [address] [place] [address] Gastroenterology 10/07/21 Harris Lennon MD [address] [place] [address], [address] [place] [address] Insurance Assigned Provider 12/17/23 Margarita Davidson, MARIZOL [address] [place] [address], [address] [place] [address] [email or web address] PHCM High Risk ObMed Admin 07/01/22 02/17/25 documented as of this encounter Additional Source Comments The information contained in this document represents components of the legal health record. It is not the complete legal health record.[facility]
--- OUTSIDE RECORDS SUMMARY | 2025-07-12 11:57 | XMS_ITS | Encounter Summary ---
Author Organization [facility] Address [address] [place] [address] Phone Care Team Providers Care Handicrafts Teacher Name Role Phone Xuan Ferraro DO Primary Care Provider + [phone] Xuan Ferraro DO Unavailable [phone] Harris Lennon MD Primary Care Provider Kory Vogt MD Unavailable Xuan Ferraro DO Unavailable [phone] Harris Lennon MD Unavailable [phone] Margarita Davidson RN Unavailable [email or web address] Margarita Davidson RN Unavailable [email or web address] Jyoti Aviles OT Unavailable [phone] Reason for Referral * MRI/CAT Scan - Closed Specialty Diagnoses / Procedures Referred By Kelvin waddell Referred To Contact Radiology Diagnoses Weakness of lower extremity, unspecified laterality Procedures MRI Thoracic Spine John Cook DO Phone: tel: fax: mailto:[email or web address] Referral ID Status Reason Start Date Expiration Date Visits Re quested Visits Authorized [id number] Closed 05/23/2020 05/23/2021 1 1 * MRI/CAT Scan - Closed Specialty Diagnoses / Procedures Referred By Contac t Referred To Contact Radiology Diagnoses Weakness of left lower extremity Procedures MRI Lumbar Spine John Cook DO Phone: tel: fax: mailto:[email or web address] Referral ID Status Reason Start Date Expiration Date Visits Re quested Visits Authorized [id number] Closed 05/23/2020 05/23/2021 1 1 Encounter Details Date Type Department Care Team (Late st Contact Info) Description 05/23/2020 Ancillary Orders Virtual Department [address] [place] [address] John Cook DO [address] [place] [address] [email or web address] Weakness of left lower extremity; Weakness of [...] Info) Description 04/08/2025 Procedure Pass Echo Lab [address] [place] [address] 07/30/2025 10:45 AM EST Office Visit [facility] [address] [place] [address] [place] [address] Harris Lennon MD [address] [place] [address], [address] [place] [address] 09/09/2025 11:15 AM EST Appointment Echo Lab [address] [place] [address] Stacie Gruber PA-C [address] [place] [address] 09/27/2025 10:40 AM EST Office Visit [facility] [address] [place] [address] 3rd Floor, [address] [place] [address] Davidsno Gunter MD 22 [facility], [address] [address] 02/14/2026 10:10 AM EDT Office Visit [facility] [address] [place] [address] [place] [address] Talon Seth DO [address] [place] [address] documented as of this encounter Results * [...] stenosis has improved from previous MR study [id number]. L3-4: No disc herniation. No significant canal [...] documented as of this encounter Care Teams Handicrafts Teacher Relationship Specialty Start Date End Date Xuan Ferraro DO [address] [place] [address] [email or web address] PCP - General 09/15/18 01/15/21 Harris Lennon MD [address] [place] [address], [address] [place] [address] PCP - General Internal Medicine 01/16/21 Xuan Ferraro DO [address] [place] [address] [email or web address] Insurance Assigned Provider 06/09/19 10/06/21 Kory Vogt MD [address] [place] [address] [email or web address] Gastroenterology 10/07/21 Xuan Ferraro DO [address] [place] [address] [email or web address] Insurance Assigned Provider 06/09/19 12/19/21 Harris Lennon MD [address] [place] [address], [address] [place] [address] [email or web address] Insurance Assigned Provider 12/17/23 Margarita Davidson RN [address] [place] [address], [address] [place] [address] [email or web address] PHCM Precision Farming Specialist 06/02/22 06/29/22 Margarita Davidson RN [address] [place] [address], [address] [place] [address] [email or web address] [facility] Precision Farming SpecialistX Ray Service Engineer 07/01/22 02/17/25 Jyoti Aviles, OT [address] [place] [address] [email or web address] Transitions Precision Farming SpecialistMarketing Intelligence Manager Therapy 12/12/2312/14/23 documented as of this encounter Additional Source Comments The information contained in this document represents components of the legal health record. It is not the complete legal health record.[facility]
--- OUTSIDE RECORDS SUMMARY | 2025-07-12 11:57 | XMS_ITS | Encounter Summary ---
Author Organization [facility] Address [address] [place] [address] Phone Care Team Providers Care Millroom Supervisor Name Role Phone Harris Lennon MD Primary Care Provider [phone] Kory Vogt MD Unavailable Xuan Ferraro DO Unavailable [phone] Harris Lennon MD Unavailable [phone] Margarita Davidson RN Unavailable [email or web address] Margarita Davidson RN Unavailable [email or web address] Jyoti Aviles OT Unavailable [phone] Encounter Details Date Type Department Care Team (Latest Contact Info) Description 10/26/2021 Transcribe Orders [facility] Laboratory [address] [address] Margarita Hart, NIKO [address] [place] [address] Fecal smearing (Primary Dx); Diarrhea, unspecified type; [...] Description 04/08/2025 Procedure Pass Echo Lab [address] [place] [address] 07/30/2025 10:45 AM EST Office Visit [address] [place] [address] Harris Lennon MD [address] [place] [address], [address] [place] [address] 09/09/2025 11:15 AM EST Appointment Echo Lab [address] [place] [address] Stacie Gruber PA-C [address] [place] [address] 09/27/2025 10:40 AM EST Office Visit [facility] [address] [place] [address] 3rd Floor, [address] [place] [address] Davidson Gunter MD [address] [place] [address], [address] [place] [address] 02/14/2026 10:10 AM EDT Office Visit [facility] [address] [place] [address] [place] [address] Talon Seth DO 22 [place] [address] documented as of this encounter Results * (ABNORMAL) Stool fat/fiber exam (10/27/2021 8:35 AM EST) FATTY ACID INCREASED( A) NORMAL [facility] Neutral Fat, stool INCREASED( A) NORMAL [facility] Stool (Stool) 10/27/2021 8:3 5 AM EST 10/27/2021 9:59 AM EST Margarita Hart NP BODY FLUIDS AND STOOLS OR DERABLES Final Result Performing Organization Address [facility]/ZIP Co de Phone Number [address] [address] * Pancreatic Elastase, Stool (10/27/2021 8:35 AM EST) Pathologist [facility] Pancreatic Elastase, Feces 488 >200 (Normal) mcg/g [facility] Stool (Stool) 10/27/2021 8:3 5 AM EST 10/27/2021 9:59 AM EST Margarita Hart NP BODY FLUIDS AND STOOLS OR DERABLES Final Result Performing Organization Address [facility] de Phone Number [facility] [address] [address] [place] [address] * C-Reactive Protein (10/26/2021 12:00 PM EST) Pathologist [facility] C REACTIVE PROTEIN 3.8 0.0 - 4.0 mg/L [facility] Blood 10/26/2021 12:0 0 PM EST 10/26/2021 12:05 PM EST Margarita Hart NP LAB BLOOD ORDERABLES Sofía l Result Performing Organization Address [facility] Co de Phone Number [address] [address] * (ABNORMAL) Comprehensive metabolic panel (10/26/2021 12:00 PM EST) SODIUM 135 133 - 146 mmol/L [facility] POTASSIUM 4.8 3.3 - 5.1 mmol/L [facility] CHLORIDE 101 96 - 108 mmol/L [facility] CO2 25 21 - 35 mmol/L [facility] BUN 12 6 - 19 mg/dL [facility] CREATININE 0.60 0.5 - 1.5 mg/dL [facility] GLUCOSE 109(H) 70 - 99 mg/dL [facility] ALBUMIN 4.5 3.9 - 4.8 g/dL [facility] TOTAL PROTEIN 7.3 6.5 - 8.0 g/dL [facility] CALCIUM 9.2 8.4 - 10.3 mg/dL [facility] ALKALINE PHOSPHATASE 64 39 - 117 U/L [facility] TOTAL BILIRUBIN 0.3 0.0 - 1.2 mg/dL [facility] AST 36 0 - 37 U/L [facility] ALT 21 0 - 40 U/L [facility] GLOBULIN 2.8 1 - 4.8 g/dL [facility] EGFR 92 >59 mL/min/1.7 3m2 [facility] Comment:Estimated glomerular filtration rate calculated using the CKD-EPI refit equation. ANION GAP 14 10 - 20 mmol/L [facility] Blood 10/26/2021 12:0 0 PM EST 10/26/2021 12:05 PM EST us Margarita Hart NP LAB BLOOD ORDERABLES Sofía hodge Result Performing Organization Address City/State/[facility] Co de Phone Number [address] [address] * (ABNORMAL) CBC (10/26/2021 12:00 PM EST) WBC 6.17 4.00 - 11.00 K/uL [facility] RBC 4.18 3.72 - 5.30 M/uL [facility] HGB 12.7 11.4 - 15.9 g/dL [facility] HCT 40.1 34.2 - 46.8 % [facility] PLT 250 140 - 430 K/uL [facility] MCV 95.9 78.0 - 97.0 fL [facility] MCH 30.4 25.0 - 33.0 pg [facility] MCHC 31.7(L) 32.0 - 36.0 g/dL [facility] RDW 13.6 11.0 - 16.0 % [facility] MPV 10.2 8.4 - 12.8 fl [facility] NRBC 0.00 0 /100 WBCs [facility] ABSOLUTE NRBC 0.00 0 K/uL [facility] Blood 10/26/2021 12:0 0 PM EST 10/26/2021 12:05 PM EST Margarita Hart HEALTH PROMOTION EDUCATOR LAB BLOOD ORDERABLES Sofía l Result Performing Organization Address City/[facility] Co de Phone Number [address] [address] * Immunoglobulin A (10/26/2021 12:00 PM EST) Pathologist [facility] IgA 164 70 - 400 mg/dL [facility] Blood 10/26/2021 12:0 0 PM EST 10/26/2021 12:05 PM EST [facility] Irma Hart NP LAB BLOOD ORDERABLES Sofía l Result Performing Organization Address [facility] de Phone Number [address] [address] * Tissue transglutaminase IgA (10/26/2021 12:00 PM EST) TTG IGA ANTIBODY <1.2 <4.0 (Negative) U/mL [facility] Blood 10/26/2021 12:0 0 PM EST 10/26/2021 12:06 PM EST [facility] LAB BLOOD ORDERABLES Sofía l Result Performing Organization Address [facility] de Phone Number [facility] [address] [address] [place] [address] documented in this encounter Visit Diagnoses Diagnosis [...] documented as of this encounter Care Teams Millroom Supervisor Relationship Specialty Start Date End Date Harris Lennon MD [address] [place] [address], [address] [place] [address] [email or web address] PCP - General Internal Medicine 01/16/21 Kory Vogt MD [address] [place] [address] [email or web address] Gastroenterology 10/07/21 Xuan Ferraro DO [address] [place] [address] Insurance Assigned Provider 06/09/19 12/19/21 Harris Lennon MD [address] [place] [address] Insurance Assigned Provider 12/17/23 Margarita Davidson RN [address] [place] [address], [address] [address] [email or web address] PHCM Investment Professional 06/02/22 06/29/22 Margarita Davidson RN [address] [place] [address], [address] [address] [email or web address] PHCM Investment ProfessionalProp Attendant 07/01/22 02/17/25 Jyoti Aviles, OT [address] [place] [address] Transitions Investment ProfessionalBookstore Manager Therapy 12/12/2312/14/23 documented as of this encounter Additional Source Comments The information contained in this document represents components of the legal health record. It is not the complete legal health record.[facility]
--- OUTSIDE RECORDS SUMMARY | 2025-07-12 11:57 | XMS_ITS | Encounter Summary ---
Author Organization [facility] Address [address] [place] [address] Phone Care Team Providers Care Agribusiness Internship Name Role Phone Harris Lennon MD Primary Care Provider [phone] Kory Vogt MD Unavailable Harris Lennon MD Unavailable [phone] Reason for Visit * Reason Onset Date Comments Results 07/08/2025 Encounter Details Date Type Department Care Team (Late st Contact Info) Description 07/08/2025 Telephone [facility] [address] [place] [address] [email or web address] Results Social History Tobacco Use Types Packs/Day Years [...] as of this encounter Progress Notes * Dawn Youssef RN - 07/08/2025 11:54 AM EDT Syed from the coumadin clinic at [facility] states Lindsey's INR 1.5 today. Her target is 2-3. She takes MWF5 mg and 2.5 all the other days. They upped dose to 7.5 mg, for today and to resume taking 5 mg therest of the week, recheck on Tuesday. They told her to eat beets today and avoid greens for 2 days. If there are any further recommendations or changes, please call her at [phone]. * Krissy Jarvis - 07/08/2025 11:51 AM EDT Alyse from [facility] Anticoagulation clinic called in to provide a critical test result. Please contact and advise. Central Support Retail Branch Manager (Please do not reply to this user; this inbox is not monitored.) Thank you. documented in this encounter Plan of Treatment Upcoming Encounters Date Type Department Care Team (Late st Contact Info) Description 04/08/2025 Procedure Pass Echo Lab [facility] [address] [place] [address] [place] [address] 07/30/2025 10:45 AM EST Office Visit [facility] [address] [place] [address] Harris Lennon MD [address] [place] [address], [address] [place] [address] 09/09/2025 11:15 AM EST Appointment Echo Lab [address] [place] [address] Stacie Gruber PA-C [address] [place] [address] 09/27/2025 10:40 AM EST Office Visit [facility] [address] [place] [address] 3rd Floor, [address] [place] [address] Davidson Gunter MD [address] [place] [address], [address] [place] [address] 02/14/2026 10:10 AM EDT Office Visit [facility] [address] [place] [address] Talon Seth DO [address] [place] [address] documented as of this encounter Visit Diagnoses Not on filedocumented in this encounter Additional Health Concerns Assessment Noted Time PHQ-9 Depression Total Score: 15 018 2:17 PM EST PHQ-2 Depression Total Score: 0 09/06/20 24 10:43 AM EST documented as of this encounter Care Teams Agribusiness Internship Relationship Specialty Start Date End Date Harris Lennon MD [address] [place] [address], [address] [place] [address] PCP - General Internal Medicine 01/16/21 Koyr Vogt MD [address] [place] [address] Gastroenterology 10/07/21 Harris Lennon MD [address] [place] [address], [address] [place] [address] Insurance Assigned Provider 12/17/23 documented as of this encounter Additional Source Comments The information contained in this document represents components of the legal health record. It is not the complete legal health record.[facility]
--- OUTSIDE RECORDS SUMMARY | 2025-07-12 11:57 | XMS_ITS | Encounter Summary ---
Author Organization [facility] Address [address] [place] [address] Phone Care Team Providers Care Safety Supervisor Name Role Phone Xuan Ferraro DO Primary Care Provider + [phone] Xuan Ferraro DO Unavailable [phone] Harris Lennon MD Primary Care Provider Kory Vogt MD Unavailable Xuan Ferraro DO Unavailable [phone] Harris Lennon MD Unavailable [phone] Margarita Davidson RN Unavailable [email or web address] Margarita Davidson RN Unavailable [email or web address] Jyoti Aviles OT Unavailable [phone] Encounter Details Date Type Department Care Team (Late st Contact Info) Description 05/23/2020 Procedure Pass [facility], [address] [address] Social History Tobacco Use Types Packs/Day Years [...] Info) Description 04/08/2025 Procedure Pass Echo Lab [address] [place] [address] 07/30/2025 10:45 AM EST Office Visit [facility] [address] [place] [address] [place] [address] Harris Lennon MD [address] [place] [address], [address] [place] [address] 09/09/2025 11:15 AM EST Appointment Echo Lab [address] [place] [address] Stacie Gruber PA-C [address] [place] [address] 09/27/2025 10:40 AM EST Office Visit [facility] [address] [place] [address] 3rd Floor, [address] [place] [address] Davidson Gunter MD [address] [place] [address], [address] [place] [address] 02/14/2026 10:10 AM EDT Office Visit [facility] [address] [place] [address] [place] [address] Talon Seth DO [address] [place] [address] documented as of this encounter Visit Diagnoses [...] documented as of this encounter Care Teams Safety Supervisor Relationship Specialty Start Date End Date Xuan Ferraro DO [address] [place] [address] [email or web address] PCP - General 09/15/18 01/15/21 Harris Lennon MD [address] [place] [address], [address] [place] [address] [email or web address] PCP - General Internal Medicine 01/16/21 Xuan Ferraro DO [address] [place] [address] [email or web address] Insurance Assigned Provider 06/09/19 10/06/21 Kory Vogt MD [address] [place] [address] Gastroenterology 10/07/21 Xuan Ferraro DO [address] [place] [address] [email or web address] Insurance Assigned Provider 06/09/19 12/19/21 Harris Lennon MD [address] [place] [address], [address] [place] [address] [email or web address] Insurance Assigned Provider 12/17/23 Margarita Davidson RN [address] [place] [address], [address] [place] [address] [email or web address] PHCM Diagnostics Tech 06/02/22 06/29/22 Margarita Davidson, RN [facility], [address] [place] [address] [email or web address] PHC Diagnostics TechTicket Collector Or Usher 07/01/22 02/17/25 Jyoti Aviles, OT 30 [place] [address] [email or web address] Transitions Diagnostics TechAerospace Engineer Therapy 12/12/2312/14/23 documented as of this encounter Additional Source Comments The information contained in this document represents components of the legal health record. It is not the complete legal health record.[facility]
--- OUTSIDE RECORDS SUMMARY | 2025-07-12 11:57 | XMS_ITS | Encounter Summary ---
Author Organization [facility] Address [address] [place] [address] Phone Care Team Providers Care Elastic Attacher Chainstitch Name Role Phone Zeina BurnsSW Unavailable Unavailab Damien Foley MD Unavailable [phone] Gabriel Fay MD Unavailable [email or web address] Darryl Hooks MD Unavailable Yury Eugene HANGING FLAGS DECORATOR Unavailable Merle Morrell MD Unavailable Christiano Alfaro MD Unavailable [phone] Kanchan Chow HANGING FLAGS DECORATOR Unavailable [phone] Allen Quevedo MD Unavailable Sheng Hermosillo MD Unavailable [phone] Talon Beaulieu MD Unavailable [phone] Cece Perez MD Unavailable Allen Oleary MD Unavailable Tea Lamb MD Unavailable Tatianna Killian CNP Unavailable Sheng Saldivar MD Unavailable [phone] Evan Hi MD Unavailable [phone] Damien Lance MD Unavailable [phone] Damien Lance MD Primary Care Provide r Xuan Ferraro DO Primary Care Provider [phone] Damien Lance MD Unavailable [phone] Xuan Ferraro DO Unavailable [phone] Harris Lennon MD Primary Care Provider [phone] Kory Vogt MD Unavailable Xuan Ferraro DO Unavailable +[phone] Harris Lennon MD Unavailable + Margarita Davidson RN Unavailable [email or web address] Margarita Davidson RN Unavailable [email or web address] Jyoti Aviles OT Unavailable [phone] Encounter Details Date Type Department Care Team (Late st Contact Info) Description 09/07/2017 Procedure Pass [facility] Admitting Dept Virtual Department 30 [place] [address] Social History Tobacco Use Types Packs/Day Years [...] Info) Description 04/08/2025 Procedure Pass Echo Lab [address] [place] [address] 07/30/2025 10:45 AM EST Office Visit [address] [place] [address] Harris Lennon MD [address] [place] [address], [address] [place] [address] 09/09/2025 11:15 AM EST Appointment Echo Lab [address] [place] [address] Stacie Gruber PA-C [address] [place] [address] 09/27/2025 10:40 AM EST Office Visit [facility] [address] [place] [address] 3rd Floor, [address] [place] [address] Davidson Gunter MD [address] [place] [address], [address] [address] 02/14/2026 10:10 AM EDT Office Visit [facility] [address] [place] [address] [place] [address] Talon Seth DO 22 [place] [address] documented as of this encounter Visit Diagnoses [...] documented as of this encounter Care Teams Elastic Attacher Chainstitch Relationship Specialty Start Date End Date Damien Lance MD [address] [address] [email or web address] PCP - General Internal Medicine 07/18/17 09/14/18 Xuan Ferraro DO [address] [place] [address] [email or web address] PCP - General 09/15/18 01/15/21 Harris Lennon MD [address] [facility], [address] [place] [address] [email or web address] PCP - General Internal Medicine 01/16/21 Zeina Burns [facility] Historical LMR Provider 07/03/17 09/21/17 Damien Lance MD 22 [facility] 1 [place] [address] [email or web address] Historical LMR Provider 07/03/17 09/21/17 Gabriel Fay MD [email or web address] Historical LMR Provider 07/03/17 09/21/17 Darryl Hooks MD [address] [place] [address], [address] [place] [address] [email or web address] Historical LMR Provider 07/03/17 Yury Hawley NP [address] [place] [address] 2_[place] [address] [email or web address] Historical LMR Provider 07/03/17 09/21/17 Merle Morrell MD [address] [place] [address], 2nd [place] [address] [email or web address] Historical LMR Provider 07/03/1709/21 Christiano Alfaro MD [address] [place] [address], [address] [place] [address] [email or web address] Historical LMR Provider 07/03/17 09/21/17 Kanchan Chow, NIKO [address] [place] [address] [place] [address] Historical LMR Provider 07/03/1709/21 Allen Quevedo MD [address] [place] [address] [address] [place] [address] [email or web address] Historical LMR Provider 07/03/17 09/21/17 Sheng Hermosillo MD [address] [place] [address], [address] [place] [address] [email or web address] Historical LMR Provider 07/03/17 09/21/17 Talon Beaulieu MD [address] [place] [address], [address] [place] [address] [email or web address] Historical LMR Provider 07/03/17 Cece Perez MD [address] [place] [address] [facility], [place] [address] [email or web address] Historical LMR Provider 07/03/17 09/21/17 Allen Oleary MD [address] [place] [address] Historical LMR Provider 07/03/1709/21 Tea Lamb MD [address] [place] [address] [email or web address] Historical LMR Provider 07/03/17 09/21/17 Tatianna Killian CNP [address] [facility], [address] [place] [address] [email or web address] Historical LMR Provider 07/03/1709/21 [place] [address] [email or web address] Historical LMR Provider 07/03/17 Evan Ko MD 10 [facility] 1 [place] [address] [email or web address] Historical LMR Provider 07/03/17 09/21/17 Damien Lance MD 22 [facility] 1 [place] [address] [email or web address] Insurance Assigned Provider 07/16/17 09/21/17 Damien Lance MD 22 [facility] 1 [place] [address] [email or web address] Insurance Assigned Provider 07/16/17 06/09/19 Xuan Ferraro DO [address] [place] [address] [email or web address] Insurance Assigned Provider 06/09/19 10/06/21 Kory Vogt MD [address] [address] Gastroenterology 10/07/21 Xuan Ferraro DO [address] [place] [address] [email or web address] Insurance Assigned Provider 06/09/19 12/19/21 Harris Lennon MD [address] [place] [address], [address] [place] [address] [email or web address] Insurance Assigned Provider 12/17/23 Margarita Davidson RN [address] [place] [address], [address] [place] [address] [email or web address] PHCM Bank Vault Custodian 06/02/22 06/29/22 Margarita Davidson RN [address] [place] [address], [address] [place] [address] [email or web address] PHC Bank Vault CustodianProtection Analyst 07/01/22 02/17/25 Jyoti Aviles, OT [address] [place] [address] [email or web address] Transitions Bank Vault CustodianMaintenance Groundman Therapy 12/12/23 12/14/23 documented as of this encounter Additional Source Comments The information contained in this document represents components of the legal health record. It is not the complete legal health record.[facility]
--- OUTSIDE RECORDS SUMMARY | 2025-07-12 11:57 | XMS_ITS | Encounter Summary ---
Author Organization [facility] Address [address] [place] [address] Phone Care Team Providers Care Options Trader Name Role Phone Xuan Ferraro DO Primary Care Provider + [phone] Damien Lance MD Unavailable Xuan Ferraro DO Unavailable [phone] Harris Lennon MD Primary Care Provider + [phone] Kory Vogt MD Unavailable Xuan Ferraro DO Unavailable [phone] Harris Lennon MD Unavailable [phone] Margarita Davidson RN Unavailable [email or web address] Margarita Davidson RN Unavailable [email or web address] Jyoti Aviles OT Unavailable [phone] Reason for Referral * Outpatient Procedure - Closed Specialty Diagnoses / Procedures Referred By Contac t Referred To Contact Diagnoses Aortic valve replaced History of thoracic aortic aneurysm repair Aortic valve stenosis, etiology of cardiac valve disease unspecified Procedures Adult Echo TTE Quincy Lopez MD Phone: tel: fax: [email or web address] Referral ID Status Reason Start Date Expiration Date Visits Re quested Visits Authorized [id number] Closed 03/26/2019 03/25/2020 1 1 Encounter Details Date Type Department Care Team (Latest Contact Info) Description 03/26/2019 Ancillary [facility] [address] [place] [address] Quincy Lopez MD [address] [place] [address] [place] [address] [email or web address] Aortic valve replaced; History of thoracic aortic [...] Description 04/08/2025 Procedure Pass Echo Lab [address] [place] [address] 07/30/2025 10:45 AM EST Office Visit [facility] [address] [place] [address] Harris Lennon MD [address] [place] [address], [address] [place] [address] 09/09/2025 11:15 AM EST Appointment Echo Lab [address] [place] [address] Stacie Gruber PA-C [address] [place] [address] 09/27/2025 10:40 AM EST Office Visit [facility] [address] [place] [address] 3rd Floor, [address] [place] [address] Davidson Gunter MD 22 [facility], [address] [place] [address] 02/14/2026 10:10 AM EDT Office Visit [facility] [address] [place] [address] Talno Seth DO 22 [place] [address] [email or web address] documented as of this encounter Results * [...] documented as of this encounter Care Teams Options Trader Relationship Specialty Start Date End Date Xuan Ferraro DO [address] [place] [address] [email or web address] PCP - General 09/15/18 01/15/21 Harris Lennon MD [address] [place] [address], [address] [place] [address] [email or web address] PCP - General Internal Medicine 01/16/21 Damien Lance MD [address] [place] [address] Floor 1 [place] [address] [email or web address] Insurance Assigned Provider 07/16/17 06/09/19 Xuan Ferraro DO [address] [place] [address] [email or web address] Insurance Assigned Provider 06/09/19 10/06/21 Kory Vogt MD [address] [place] [address] [email or web address] Gastroenterology 10/07/21 Xuan Ferraro DO [address] [place] [address] [email or web address] Insurance Assigned Provider 06/09/19 12/19/21 Harris Lennon MD [address] [place] [address], [address] [place] [address] [email or web address] Insurance Assigned Provider 12/17/23 Margarita Davidson RN [address] [place] [address], [address] [place] [address] [email or web address] PHCM Partner Alliance Manager 06/02/22 06/29/22 Margarita Davidson, RN 22 [facility], [address] [place] [address] [email or web address] PHCM Partner Alliance ManagerLead Software Test Engineer 07/01/22 02/17/25 Jyoti Aviles, OT [address] [place] [address] [email or web address] Transitions Partner Alliance ManagerOccupational Hygienist Therapy 12/12/2312/14/23 documented as of this encounter Additional Source Comments The information contained in this document represents components of the legal health record. It is not the complete legal health record.[facility]
--- OUTSIDE RECORDS SUMMARY | 2025-07-12 11:57 | XMS_ITS | Clinical Summary ---
Author Organization [facility] Address [address] [place] [address] Care Team Providers Care Float Nurse Name Role Phone Unavailable Primary Care Provider [...]
--- OUTSIDE RECORDS SUMMARY | 2025-07-12 11:57 | XMS_ITS | Encounter Summary ---
Author Organization [facility] Address [address] [place] [address] Care Team Providers Care Tool And Production Planner Name Role Phone Unavailable Primary Care Provider Unavailabl e Encounter Details Date Type Department Care Team (Late st Contact Info) Description 07/27/2016 Scanned Document [facility] Cardioth[facility]acic Surgery [place] [address] [facility] [address] [place] [address] Manny Lindo MD [address] [facility] [address] [place] [address] Social History Tobacco Use Types Packs/Day Years [...]
--- OUTSIDE RECORDS SUMMARY | 2025-07-12 11:57 | XMS_ITS | Encounter Summary ---
Author Organization [facility] Address [address] [place] [address] Phone Care Team Providers Care Precision Lens Polisher Name Role Phone Harris Lennon MD Primary Care Provider [phone] Kory Vogt MD Unavailable Xuan Ferraro DO Unavailable [phone] Harris Lennon MD Unavailable [phone] Margarita Davidson RN Unavailable [email or web address] Margarita Davidson RN Unavailable [email or web address] Jyoti Aviles OT Unavailable [phone] Encounter Details Date Type Department Care Team (Late st Contact Info) Description 11/26/2021 Procedure Pass [facility], Ct Scan - [address] [address] Social History Tobacco Use Types Packs/Day Years [...] Description 04/08/2025 Procedure Pass Echo Lab [address] [place] [address] 07/30/2025 10:45 AM EST Office Visit [facility] [address] [place] [address] [place] [address] Harris Lennon MD [address] [place] [address], [address] [place] [address] 09/09/2025 11:15 AM EST Appointment Echo Lab [address] [place] [address] Stacie Gruber PA-C [address] [place] [address] 09/27/2025 10:40 AM EST Office Visit [facility] [address] [place] [address] Dr 3rd Floor, [address] [place] [address] Davidson Gunter MD [address] [place] [address], [address] [place] [address] 02/14/2026 10:10 AM EDT Office Visit [facility] [address] [place] [address] [place] [address] Talon Seth DO [address] [place] [address] documented as of this encounter Visit Diagnoses [...] documented as of this encounter Care Teams Precision Lens Polisher Relationship Specialty Start Date End Date Harris Lennon MD [address] [place] [address], [address] [place] [address] PCP - General Internal Medicine 01/16/21 Kory Vogt MD [address] [place] [address] Gastroenterology 10/07/21 Xuan Ferraro DO [address] [place] [address] Insurance Assigned Provider 06/09/19 12/19/21 Harris Lennon MD [address] [place] [address], [address] [place] [address] Insurance Assigned Provider 12/17/23 Margarita Davidson RN [address] [place] [address], [address] [address] [email or web address] PHCM Loading Machine Operator 06/02/22 06/29/22 Margarita Davidson RN [address] [place] [address], [address] [place] [address] [email or web address] PHC Loading Machine OperatorHousehold Worker 07/01/22 02/17/25 Jyoti Aviles, OT [address] [place] [address] Transitions Loading Machine OperatorMeat Scrubber Therapy 12/12/2312/14/23 documented as of this encounter Additional Source Comments The information contained in this document represents components of the legal health record. It is not the complete legal health record.[facility]
--- OUTSIDE RECORDS SUMMARY | 2025-07-12 11:57 | XMS_ITS | Encounter Summary ---
Author Organization [facility] Address [address] [place] [address] Phone Care Team Providers Care Cnc Set Up Operator Name Role Phone Xuan Ferraro DO Primary Care Provider + [phone] Xuan Ferraro DO Unavailable [phone] Harris Lennon MD Primary Care Provider Kory Vogt MD Unavailable Xuan Ferraro DO Unavailable [phone] Harris Lennon MD Unavailable [phone] Margarita Davidson RN Unavailable [email or web address] Margarita Davidson RN Unavailable [email or web address] Jyoti Aviles OT Unavailable [phone] Reason for Referral * Physical Therapy (Elective) - Closed Specialty Diagnoses / Procedures Referred By Kelvin waddell Referred To Contact Physical Therapy Diagnoses Encounter for rehabilitation PELVIC FLOOR , Urinary and Fecal Incontinence Maritza Rodriguez NP Phone: tel: fax: [address] [address] Phone: tel: Referral ID Status Reason Start Date Expiration Date Visits Re quested Visits Authorized [id number] Closed 07/15/2020 09/11/2020 99 99 Encounter Details Date Type Department Care Team (Latest Contact Info) Description 07/10/2020 Transcribe Orders [facility] [address] [place] [address] Maritza Rodriguez, RAW HIDE TRIMMER [address] [facility] [place] [address] Encounter for rehabilitation (Primary Dx) Social History [...] Description 04/08/2025 Procedure Pass Echo Lab [address] [place] [address] 07/30/2025 10:45 AM EST Office Visit [address] [place] [address] Harris Lennon MD [address] [place] [address], [address] [place] [address] 09/09/2025 11:15 AM EST Appointment Echo Lab [address] [place] [address] Stacie Gruber PA-C [address] [place] [address] 09/27/2025 10:40 AM EST Office Visit [facility] [address] [place] [address] 3rd Floor, [address] [place] [address] Davidson Gunter MD [address] [facility] [facility], [address] [place] [address] [email or web address] 02/14/2026 10:10 AM EDT Office Visit [facility] [address] [place] [address] Talon Seth DO [address] [place] [address] [email or web address] Scheduled Referrals Name Type Priority Associated Diagnoses Orde r Schedule Ambulatory referral to [facility] Physical Therapy Outpatient Referral Routine Encounter [...] documented as of this encounter Care Teams Cnc Set Up Operator Relationship Specialty Start Date End Date Xuan Ferraro DO 9 [place] [address] PCP - General 09/15/18 01/15/21 Harris Lennon MD [address] [place] [address], [address] [place] [address] [email or web address] PCP - General Internal Medicine 01/16/21 Xuan Ferraro DO [address] [place] [address] Insurance Assigned Provider 06/09/19 10/06/21 Kory Vogt MD [address] [place] [address] [email or web address] Gastroenterology 10/07/21 Xuan Ferraro DO [address] [place] [address] [email or web address] Insurance Assigned Provider 06/09/19 12/19/21 Harris Lennon MD [address] [place] [address], [address] [place] [address] [email or web address] Insurance Assigned Provider 12/17/23 Margarita Davidson RN [address] [place] [address], [address] [place] [address] [email or web address] PHCM Fabricator Assembler Metal Products 06/02/22 06/29/22 Margarita Davidson RN [address] [place] [address], [address] [place] [address] [email or web address] PHC Fabricator Assembler Metal ProductsEncoding Machine Operator 07/01/22 02/17/25 Jyoti Aviles, OT [address] [place] [address] [email or web address] Transitions Fabricator Assembler Metal ProductsCriminal Lawyer Therapy 12/12/2312/14/23 documented as of this encounter Additional Source Comments The information contained in this document represents components of the legal health record. It is not the complete legal health record.[facility]
--- OUTSIDE RECORDS SUMMARY | 2025-07-12 11:57 | XMS_ITS | Encounter Summary ---
Author Organization [facility] Address [address] [place] [address] Phone Care Team Providers Care Fraternity Adviser Name Role Phone Harris Lennon MD Primary Care Provider [phone] Kory Vogt MD Unavailable Harris Lennon MD Unavailable [phone] Margarita Davidson RN Unavailable [email or web address] Margarita Davidson RN Unavailable [email or web address] Jyoti Aviles OT Unavailable Encounter Details Date Type Department Care Team (Late st Contact Info) Description 12/24/2021 Procedure Pass [facility] Endoscopy Admitting Dept Virtual Department [address] [place] [address] Social History Tobacco Use Types Packs/Day Years [...] Description 04/08/2025 Procedure Pass Echo Lab [address] [place] [address] 07/30/2025 10:45 AM EST Office Visit [facility] [address] [place] [address] [place] [address] Harris Lennon MD [address] [place] [address], [address] [place] [address] 09/09/2025 11:15 AM EST Appointment Echo Lab [address] [place] [address] Stacie Gruber PA-C [address] [place] [address] 09/27/2025 10:40 AM EST Office Visit [facility] [address] [place] [address] 3rd Floor, [address] [place] [address] Davidson Gunter MD [address] [place] [address], [address] [place] [address] 02/14/2026 10:10 AM EDT Office Visit [facility] [address] [place] [address] [place] [address] Talon Seth DO [address] [place] [address] documented as of this encounter Visit Diagnoses [...] documented as of this encounter Care Teams Fraternity Adviser Relationship Specialty Start Date End Date Harris Lennon MD [address] [place] [address], [address] [place] [address] PCP - General Internal Medicine 01/16/21 Kory Vogt MD [address] [place] [address] Gastroenterology 10/07/21 Harris Lennon MD [address] [place] [address], [address] [place] [address] Insurance Assigned Provider 12/17/23 Margarita Davidson RN [address] [place] [address], [address] [place] [address] [email or web address] PHC Human Factors Scientist 06/02/22 06/29/22 Margarita Davidson RN [address] [place] [address], [address] [place] [address] [email or web address] PHC Human Factors ScientistClaim Clerk 07/01/22 02/17/25 Jyoti Aviles, OT [address] [place] [address] [email or web address] Transitions Human Factors ScientistPiece Marker Small Arms Therapy 12/12/2312/14/23 documented as of this encounter Additional Source Comments The information contained in this document represents components of the legal health record. It is not the complete legal health record.[facility]
--- OUTSIDE RECORDS SUMMARY | 2025-07-12 11:57 | XMS_ITS | Encounter Summary ---
Author Organization [facility] Address [address] [place] [address] Phone Care Team Providers Care Enterprise Application Developer Name Role Phone Xuan Ferraro DO Primary Care Provider + [phone] Xuan Ferraro DO Unavailable [phone] Harris Lennon MD Primary Care Provider Kory Vogt MD Unavailable Xuan Ferraro DO Unavailable [phone] Harris Lennon MD Unavailable [phone] Margarita Davidson RN Unavailable [email or web address] Margarita Davidson RN Unavailable [email or web address] Jyoti Aviles OT Unavailable [phone] Encounter Details Date Type Department Care Team (Latest Contact Info) Description 08/13/2019 Transcribe Orders [facility] [address] [place] [address] Gabriel Fay MD [email or web address] Personal history of arthritis (Primary Dx); Senile [...] Info) Description 04/08/2025 Procedure Pass Echo Lab [address] [place] [address] 07/30/2025 10:45 AM EST Office Visit [facility] [place] [facility] [address] [place] [address] [place] [address] Harris Lennon MD [address] [place] [address], [address] [place] [address] 09/09/2025 11:15 AM EST Appointment Echo Lab [address] [place] [address] Stacie Gruber PA-C [address] [place] [address] 09/27/2025 10:40 AM EST Office Visit [facility] [address] [place] [address] 3rd Floor, [address] [place] [address] Davidson Gunter MD [address] [place] [address], [address] [place] [address] 02/14/2026 10:10 AM EDT Office Visit [facility] [address] [place] [address] [place] [address] Talon Seth DO [address] [place] [address] documented as of this encounter Visit Diagnoses [...] documented as of this encounter Care Teams Enterprise Application Developer Relationship Specialty Start Date End Date Xuan Ferraro DO [address] [place] [address] [email or web address] PCP - General 09/15/18 01/15/21 Harris Lennon MD [address] [place] [address], [address] [place] [address] PCP - General Internal Medicine 01/16/21 Xuan Ferraro DO [address] [place] [address] [email or web address] Insurance Assigned Provider 06/09/19 10/06/21 Kory Vogt MD [address] [place] [address] [email or web address] Gastroenterology 10/07/21 Xuan Ferraro DO [address] [place] [address] [email or web address] Insurance Assigned Provider 06/09/19 12/19/21 Harris Lennon MD [address] [place] [address], [address] [place] [address] [email or web address] Insurance Assigned Provider 12/17/23 Margarita Davidson RN [address] [place] [address], [address] [place] [address] [email or web address] PHCM Lamination Builder 06/02/22 06/29/22 Margarita Davidson RN [address] [place] [address], [address] [place] [address] PHC Lamination BuilderSuperintendent System Operation 07/01/22 02/17/25 Jyoti Aviles, OT [address] [place] [address] [email or web address] Transitions Lamination BuilderHospice Case Manager Therapy 12/12/2312/14/23 documented as of this encounter Additional Source Comments The information contained in this document represents components of the legal health record. It is not the complete legal health record.[facility]
--- OUTSIDE RECORDS SUMMARY | 2025-07-12 11:57 | XMS_ITS | Encounter Summary ---
Author Organization [facility] Address [address] [place] [address] Phone Care Team Providers Care Documentation Designer Name Role Phone Xuan Ferraro DO Primary Care Provider + [phone] Xuan Ferraro DO Unavailable [phone] Harris Lennon MD Primary Care Provider Kory Vogt MD Unavailable Xuan Ferraro DO Unavailable [phone] Harris Lennon MD Unavailable [phone] Margarita Davidson RN Unavailable [email or web address] Margarita Davidson RN Unavailable [email or web address] Jyoti Aviles OT Unavailable [phone] Reason for Referral * MRI/CAT Scan - Closed Specialty Diagnoses / Procedures Referred By Kelvin t Referred To Contact Radiology Diagnoses Low back pain, unspecified back pain laterality, unspecified chronicity, unspecified whether sciatica present Procedures CT Lumbar Spine John Cook DO Phone: tel: fax: [email or web address] Referral ID Status Reason Start Date Expiration Date Visits Re quested Visits Authorized [id number] Closed 07/02/2020 07/02/2021 1 1 Encounter Details Date Type Department Care Team (Latest Contact Info) Description 07/02/2020 Transcribe Orders Virtual Department [address] [place] [address] John Cook, [address] [place] [address] [email or web address] Low back pain, unspecified back pain laterality, [...] Description 04/08/2025 Procedure Pass Echo Lab [address] [place] [address] 07/30/2025 10:45 AM EST Office Visit [address] [place] [address] Harris Lennon MD [address] [place] [address], [address] [place] [address] 09/09/2025 11:15 AM EST Appointment Echo Lab [address] [place] [address] Stacie Gruber PA-C [address] [place] [address] 09/27/2025 10:40 AM EST Office Visit [facility] [address] [facility] 3rd Floor, [address] [place] [address] Davidson Gunter MD [address] [facility] [place], [address] [place] [address] 02/14/2026 10:10 AM EDT Office Visit [facility] [address] [place] [address] Talon Seth DO [address] [place] [address] [email or web address] documented as of this encounter Results * [...] documented as of this encounter Care Teams Documentation Designer Relationship Specialty Start Date End Date Xuan Ferraro DO [address] [place] [address] [email or web address] PCP - General 09/15/18 01/15/21 Harris Lennon MD [address] [place], [place] [address] [place] [address] PCP - General Internal Medicine 01/16/21 Xuan Ferraro DO [address] [place] [address] [email or web address] Insurance Assigned Provider 06/09/19 10/06/21 Kory Vogt MD [address] [place] [address] Gastroenterology 10/07/21 Xuan Ferraro DO [address] [place] [address] [email or web address] Insurance Assigned Provider 06/09/19 12/19/21 Harris Lennon MD [address] [place] [address], [address] [place] [address] [email or web address] Insurance Assigned Provider 12/17/23 Margarita Davidson RN [address] [place] [address], [address] [place] [address] [email or web address] PHCM Manager Shop 06/02/22 06/29/22 Margarita Davidson RN [address] [place] [address], [address] [place] [address] [email or web address] PHC Manager ShopHematology Nurse Educator 07/01/22 02/17/25 Jyoti Aviles, OT [address] [place] [address] [email or web address] Transitions Manager ShopProject Asst Therapy 12/12/2312/14/23 documented as of this encounter Additional Source Comments The information contained in this document represents components of the legal health record. It is not the complete legal health record.[facility]
--- OUTSIDE RECORDS SUMMARY | 2025-07-12 11:57 | XMS_ITS | Encounter Summary ---
Author Organization [facility] Address [address] [place] [address] Phone Care Team Providers Care Legislative Assistant Name Role Phone Xuan Ferraro DO Primary Care Provider + [phone] Xuan Ferraro DO Unavailable [phone] Harris Lennon MD Primary Care Provider Kory Vogt MD Unavailable Xuan Ferraro DO Unavailable [phone] Harris Lennon MD Unavailable [phone] Margarita Davidson RN Unavailable [email or web address] Margarita Davidson RN Unavailable [email or web address] Jyoti Aviles OT Unavailable [phone] Encounter Details Date Type Department Care Team (Late st Contact Info) Description 05/23/2020 Procedure Pass [facility], [address] [address] Social History Tobacco Use Types Packs/Day Years [...] Description 04/08/2025 Procedure Pass [facility] Lab [address] [place] [address] 07/30/2025 10:45 AM EST Office Visit [address] [place] [address] Harris Lennon MD [address] [place] [address], [address] [place] [address] 09/09/2025 11:15 AM EST Appointment Echo Lab [address] [place] [address] Stacie Gruber PA-C [address] [place] [address] 09/27/2025 10:40 AM EST Office Visit [facility] [address] [place] [address] 3rd Floor, [address] [place] [address] Davidson Gunter MD [address] [place] [address], [address] [place] [address] 02/14/2026 10:10 AM EDT Office Visit [facility] [address] [place] [address] [place] [address] Talon Seth DO [address] [place] [address] [email or web address] documented as of this encounter Visit [...] documented as of this encounter Care Teams Legislative Assistant Relationship Specialty Start Date End Date Xuan Ferraro DO [address] [place] [address] [email or web address] PCP - General 09/15/18 01/15/21 Harris Lennon MD [address] [place] [address] [address] [place] [address] [email or web address] PCP - General Internal Medicine 01/16/21 Xuan Ferraro DO [address] [place] [address] [email or web address] Insurance Assigned Provider 06/09/19 10/06/21 Kory Vogt MD [address] [place] [address] Gastroenterology 10/07/21 Xuan Ferraro DO [address] [place] [address] [email or web address] Insurance Assigned Provider 06/09/19 12/19/21 Harris Lennon MD [address] [place] [address], [address] [place] [address] [email or web address] Insurance Assigned Provider 12/17/23 Margarita Davidson RN [address] [place] [address], [address] [place] [address] [email or web address] PHCM Distance Education Coordinator 06/02/22 06/29/22 Margarita Davidson RN [address] [place] [address], [address] [place] [address] [email or web address] PHC Distance Education CoordinatorService Developer 07/01/22 02/17/25 Jyoti Aviles, OT [address] [place] [address] [email or web address] Transitions Distance Education CoordinatorGround Operations Supervisor Therapy 12/12/2312/14/23 documented as of this encounter Additional Source Comments The information contained in this document represents components of the legal health record. It is not the complete legal health record.[facility]
--- OUTSIDE RECORDS SUMMARY | 2025-07-12 11:57 | XMS_ITS | Encounter Summary ---
Author Organization [facility] Address [address] [place] [address] Phone Care Team Providers Care Wallpaper Printer Helper Name Role Phone Xuan Ferraro DO Primary Care Provider + [phone] Xuan Ferraro DO Unavailable [phone] Harris Lennon MD Primary Care Provider Kory Vogt MD Unavailable Xuan Ferraro DO Unavailable [phone] Harris Lennon MD Unavailable [phone] Margarita Davidson RN Unavailable [email or web address] Margarita Davidson RN Unavailable [email or web address] Jyoti Aviles OT Unavailable [phone] Encounter Details Date Type Department Care Team (Late st Contact Info) Description 07/02/2020 Procedure Pass [facility], Ct Scan - [address] [address] Social History Tobacco Use Types Packs/Day Years [...] Description 04/08/2025 Procedure Pass Echo Lab [address] [place] [address] 07/30/2025 10:45 AM EST Office Visit [facility] [address] [place] [address] [place] [address] Harris Lennon MD [address] [place] [address], [address] [place] [address] 09/09/2025 11:15 AM EST Appointment Echo Lab [address] [place] [address] Stacie Gruber PA-C [address] [place] [address] 09/27/2025 10:40 AM EST Office Visit [facility] [address] [place] [address] 3rd Floor, [address] [place] [address] Davidson Gunter MD [address] [place] [address], [address] [place] [address] 02/14/2026 10:10 AM EDT Office Visit [facility] [address] [place] [address] [place] [address] Talon Seth DO [address] [place] [address] documented as of this encounter Visit Diagnoses [...] documented as of this encounter Care Teams Wallpaper Printer Helper Relationship Specialty Start Date End Date Xuan Ferraro DO [address] [place] [address] [email or web address] PCP - General 09/15/18 01/15/21 Harris Lennon MD [address] [place] [address], [address] [place] [address] [email or web address] PCP - General Internal Medicine 01/16/21 Xuan Ferraro DO [address] [place] [address] [email or web address] Insurance Assigned Provider 06/09/19 10/06/21 Kory Vogt MD [address] [place] [address] [email or web address] Gastroenterology 10/07/21 Xuan Ferraro DO [address] [place] [address] [email or web address] Insurance Assigned Provider 06/09/19 12/19/21 Harris Lennon MD [address] [place] [address], [address] [place] [address] [email or web address] Insurance Assigned Provider 12/17/23 Margarita Davidson RN [address] [place] [address], [address] [place] [address] [email or web address] PHCM Assistant Loan Processor 06/02/22 06/29/22 Margarita Davidson, RN [facility], [address] [place] [address] [email or web address] PHC Assistant Loan ProcessorEconomics Analyst 07/01/22 02/17/25 Jyoti Aviles, OT [address] [place] [address] [email or web address] Transitions Assistant Loan ProcessorFeeder Catcher Therapy 12/12/2312/14/23 documented as of this encounter Additional Source Comments The information contained in this document represents components of the legal health record. It is not the complete legal health record.[facility]
--- OUTSIDE RECORDS SUMMARY | 2025-07-12 11:57 | XMS_ITS | Clinical Summary ---
Author Organization [facility] Address [address] [place] [address] Phone Care Team Providers Care Physician General Practice Name Role Phone Harris Lennon MD Primary Care Provider [phone] Kory Vogt MD Unavailable Harris Lennon MD Unavailable [phone] Allergies Active Allergy Reactions Criticality Noted Date Comments Donepezil Diarrhea High 04/17/2018 Nitrofurantoin Monohyd/M-Cryst 08/01 Memantine 03/07/2018 Rage Penicillins Diarrhea 07/28/2017 Oxycodone-Acetaminophen Rash Low 07/18/2017 Sulfa (Sulfonamide Antibiotics) Rash Low 02/2017 Oseltamivir Diarrhea Low 10/05/2017 Medications cholecalciferol (VITAMIN D3) 25 MCG (1,000 unit) tablet Take 1,000 Units by mouth daily. Active estradioL (ESTRACE) 0.01 % (0.1 mg/gram) vaginal cream Place 2 g vaginally. 020 Active cranberry 400 mg Cap capsuleIndicati ons:Gummy [...] MOUTH TWICE A DAY 180 each 3 022 Active methenamine (HIPREX) 1 gram tablet Take [...] needed for pain (specific location in comments). 023 Active albuterol 90 mcg/actuation inhaler Inhale 2 puffs into the lungs every 6 (six) hours as needed for wheezing. 6.7 g 024 Active azithromycin (ZITHROMAX) 250 MG tablet TAKE 2 TABLETS BY MOUTH 1 HOUR BEFORE APPOINTMENT 024 Active mirtazapine (REMERON) 7.5 MG tabletIndicatio ns:Anxiety,Psyc hophysiological insomnia TAKE 1 TABLET BY MOUTH EVERYDAY AT BEDTIME 90 tablet 3 025 Active alendronate (FOSAMAX) 70 MG tabletIndicatio ns:Other osteoporosis without current pathological fracture Take 1 tablet (70 mg total) by mouth every 7 days. Take in the morning with a full glass of water, on an empty stomach, and do not take anything else by mouth or lie down for the next 30 min. 12 tablet 3 025 Active atorvastatin (LIPITOR) 40 MG tabletIndicatio ns:Hypercholest erolemia Take 1 tablet (40 mg total) by mouth daily. 90 tablet 1 025 Active warfarin (COUMADIN) 2.5 MG tabletIndicatio ns:Paroxysmal atrial fibrillation TAKE 2 TABLETS BY MOUTH ON TUESDAY, TUESDAY, TUESDAY, AND 1 TABLET ON ALL OTHER DAYS, OR DIRECTED BY THE ANTICOAGULATION CLINIC 130 tablet 3 025 Active losartan (COZAAR) 50 MG tabletIndicatio ns:Essential hypertension Take 1 tablet (50 mg total) by mouth daily. 90 tablet 3 025 Active metoprolol succinate (TOPROL-XL) 25 MG 24 hr tabletIndicatio ns:Paroxysmal atrial fibrillation TAKE 3 TABLETS BY MOUTH DAILY 270 tablet 3 025 Active metoprolol succinate (TOPROL-XL) 25 MG 24 hr tabletIndicatio ns:Paroxysmal atrial fibrillation take 3 tablets by mouth daily 270 tablet 3 024 2024 Discontinued Active Problems Problem Noted Date Diagnosed Date [...] will meet with Dr. Skelton in the [facility] system for continued management of her aortic [...] 2016. She remains asymptomatic. She follows with [facility] Dr. Skelton whom she most recently saw [...] this 30 minute visit was spent in [id number] conversation with the patient going over her [...] Overview (10/07/2021): Medications managed by psychiatrist in [place] Assessment & Plan (03/07/2025 11:10 AM EDT): [...] bone density. 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 Assessment & Plan [...] hospital encounter of 05/18/19 (from the past 08285 hour(s)) DXA Monitoring Addendum: 05/25/2019 In addition [...] hospital encounter of 05/18/19 (from the past 08599 hour(s)) DXA Monitoring Addendum: 05/25/2019 In addition [...] hospital encounter of 05/18/19 (from the past 56981 hour(s)) DXA Monitoring Addendum: 05/25/2019 In addition [...] hospital encounter of 05/18/19 (from the past 20722 hour(s)) DXA Monitoring Addendum: 05/25/2019 In addition [...] fibrillation 07/18/2017 Overview (02/15/2022): Anticoagulation managed by [facility] Assessment & Plan (04/10/2025 7:07 [...] IV fluids - Supportive care Supratherapeutic INR 10/12/201702/06/ 021 Assessment & Plan (10/13/2017 3:35 PM [...] Encounters Date Type Department Care Team Description 07/08/2025 Telephone [facility] [address] [place] [address] Krissy Jarvis Results 07/07/[address] [place] [address] Harris Lennon MD Medication Refill 05/21/2025 Orders Only [address] [place] [address] Gary Bashir MD 05/14/2025 Refill [facility] [address] [place] [address] 3rd Floor, [address] [place] [address] Stacie Gruber PA-C Medication Refill 05/02/2025 4:15 PM EDT Office Visit [facility] [address] [place] [address] Chan Cruz MD Primary localized osteoarthrosis of left lower leg (Primary Dx); Left knee pain 05/02/2025 10:30 AM EDT Telemedicine - audio only [address] [place] [address] Anastacia Velasquez, [place] Essential hypertension (Primary Dx); Primary osteoarthritis of both knees 04/15/[address] [place] [address] Harris Lennon MD calll back ( Citlalli Juares wants pt off medication for 3 days, Alyse is questioning this due to the pt being a high risk of stroke. Pt is having a left knee injection. Please give Alyse a callback for more information at [phone] ) 04/12/2025 Refill [facility] [address] [place] [address] Nida Lr Medication Refill from Last 3 Months Immunizations Immunization Administration [...] Description 04/08/2025 Procedure Pass [facility] [address] [place] [address] 07/30/2025 10:45 AM EST Office Visit [address] [place] [address] Harris Lennon MD [address] [place] [address], [address] [place] [address] 09/09/2025 11:15 AM EST Appointment [facility] [address] [place] [address] Stacie Gruber PA-C [address] [place] [address] 09/27/2025 10:40 AM EST Office Visit [facility] [address] [place] [address] [address]rd Floor, [address] [place] [address] Davidson Gunter MD [address] [place] [address], [address] [place] [address] 02/14/2026 10:10 AM EDT Office Visit [facility] [address] [place] [address] [place] [address] Jazzmine Seth DO [address] [place] [address] Health Maintenance Due Date Last Done Comments LIPID PANEL 01/18/2024 01/17/2019, 05/0 04/2019, 08/26/2017, Additional history exists INFLUENZA VACCINE [...] this topic Medical Devices Implanted Type Area Communications Programmer Device Identifier Shelf Expiration Date Model / [...] Referred By: JAZZMINE SETH Indications: Osteoporosis Scanner: Holo[employer]ger[employer] A with serial# of [id number] located at [facility] Bone Density Scan (DXA) 03/11/25 Details of [...] -2.5), or Osteoporosis (T-score <= -2.5). At [facility], T-scores are compared to peak bone density [...] Referred By: JAZZMINE SETH Indications: Osteoporosis Scanner: [id number] A with serial# of [id number] located at [facility] Bone Density Scan (DXA) 03/11/25 Details [...] -2.5), or Osteoporosis (T-score <= -2.5). At [facility], T-scores are compared to peak bone density [...] EDT) SODIUM 140 133 - 146 mmol/L [facility] POTASSIUM 4.7 3.3 - 5.1 mmol/L [facility] CHLORIDE 104 96 - 108 mmol/L [facility] CO2 25 21 - 35 mmol/L [facility] GLUCOSE 99 70 - 99 mg/dL [facility] BUN 16 6 - 19 mg/dL [facility] CREATININE 0.80 0.5 - 1.5 mg/dL [facility] CALCIUM 10.0 8.4 - 10.3 mg/dL [facility] PHOSPHORUS 3.4 2.7 - 4.5 mg/dL [facility] ALBUMIN 4.1 3.9 - 4.8 g/dL [facility] EGFR 74 >59 mL/min/1.7 3m2 [facility] Comment:Estimated glomerular filtration rate calculated using the CKD-EPI refit equation. ANION GAP 16 10 - 20 mmol/L [facility] Blood 03/06/2025 7:59 AM EDT 03/06/2025 8:05 AM EDT Jazzmine Seth DO LAB BLOOD ORDERABLES Final Resul t [facility] [address] [place] [address] * (ABNORMAL) Lipid panel (01/17/2019 7:43 AM EDT) HDL 69 mg/dL [facility] Comment: Interpretation <40 mg/dL: Low HDL cholesterol (major risk factor for CHD) Greater than or equal to 60 mg/dL: High HDL cholesterol ( negative risk factor for CHD) HDL - cholesterol is affected by a number of factors, e.g. smoking, excerise, hormones, sex and age. CHOLESTEROL 168 0 - 240 mg/dL [facility] TRIGLYCERIDES 68 30 - 160 mg/dL [facility] LDL 85 50 - 129 mg/dL [facility] Comment: LDL levels in terms of risk for coronary heart disease: <100 mg/dL: Optimal 100-129 mg/dL: Near or above optimal 130-159 mg/dL: Borderline high 160-189 mg/dL: High >190 mg/dL: Very High CARDIAC RISK RATIO 2.4(L) 3.3 - 4.4 C [facility] Blood 01/17/2019 7:43 AM EDT 01/17/2019 7:46 AM EDT us Xuan Ferraro DO LAB BLOOD ORDERABLES Final Result Performing Organization Address City/State/[facility] Co de Phone Number [facility] [address] [place], [place] [id number] from Last 3 Months or Most Recently Relevant to Health Maintenance Insurance MEDICARE PART A & B [employer] MEDEX SUPPLEMENT MEDICARE PART A & B [employer] MEDEX SUPPLEMENT MEDICARE PART A & B [employer] MEDEX SUPPLEMENT MEDICARE PART A & B Member Subscriber Plan / Payer ([facility] Name:Lindsey José Member ID:[id number] Relation to Subscriber:Self Name:Lindsey José Subscriber ID:[id number] Payer ID:[id number] Group ID:Not on file Type:Medicare Address: [employer] [address] [place] [address] [employer] MEDEX SUPPLEMENT Member Subscriber Plan / Payer ([facility] Name:Lindsey José Relation to Subscriber:Self Name:Lindsey José Payer ID:[id number] (NAIC) Type:Indemnity Address: [place] [address] MEDICARE PART A & B [employer] MEDEX SUPPLEMENT MEDICARE PART A & B [facility] MEDEX SUPPLEMENT MEDICARE PART A & B [employer] MEDEX SUPPLEMENT MEDICARE PART A & B [employer] MEDEX SUPPLEMENT Member Subscriber Plan / Payer ([facility] Name:Lindsey José Relation to Subscriber:Self Name:Lindsey José Payer ID:[id number] (NA) Type:Indemnity Address: [place] [address] MEDICARE PART A & B [employer] MEDEX SUPPLEMENT Advance Directives For more information, please contact: [phone] (9AM - 5PM [facility], Tuesday-Tuesday) * DNR/DNI (No CPR/No Intubation) (Latest Code Status on File) Date Activated Date Inactivated Comments 12/09/2023 7:13 PM Question Answer Comments Code Status Confirmed With: Patient Code Discussion Comments: per d/w patient 4 * Full Code (Confirmed) Date Activated Date Inactivated Comments 10/12/2017 7:49 PM 10/14/2017 2:44 PM Question Answer Comments Code Discussion Comments: patient Care Teams Physician General Practice Relationship Specialty Start Date End Date Harris Lennon MD [address] [place] [address], [address] [place] [address] PCP - General Internal Medicine 01/16/21 Kory Vogt MD [address] [place] [address] Gastroenterology 10/07/21 Harris Lennon MD [address] [place] [address], [address] [place] [address] Insurance Assigned Provider 12/17/23 Additional Source Comments The information contained in this document represents components of the legal health record. It is not the complete legal health record.[facility]
--- OUTSIDE RECORDS SUMMARY | 2025-07-12 11:57 | XMS_ITS | Encounter Summary ---
Author Organization [facility] Address [address] [place] [address] Phone Care Team Providers Care Business Practices Supervisor Name Role Phone Damien Lance MD Primary Care Provide r Xuan Ferraro DO Primary Care Provider + [phone] Damien Lance MD Unavailable [phone] Xuan Ferraro DO Unavailable [phone] Harris Lennon MD Primary Care Provider + [phone] Kory Vogt MD Unavailable Xuan Ferraro DO Unavailable [phone] Harris Lennon MD Unavailable [phone] Margarita Davidson RN Unavailable [email or web address] Margarita Davidson RN Unavailable [email or web address] Jyoti Aviles OT Unavailable [phone] Encounter Details Date Type Department Care Team (Late st Contact Info) Description 10/17/2017 Procedure Pass [facility], Ct Scan - [address] [id number] Social History Tobacco Use Types Packs/Day Years [...] Info) Description 04/08/2025 Procedure Pass [facility] [address] [place] [address] 07/30/2025 10:45 AM EST Office Visit [facility] [address] [place] [address] [place] [address] Harris Lennon MD [address] [place] [address], [address] [place] [address] 09/09/2025 11:15 AM EST Appointment [facility] [address] [place] [address] Stacie Gruber PA-C [address] [place] [address] 09/27/2025 10:40 AM EST Office Visit [facility] [address] [place] [address] 3rd Floor, [address] [place] [address] Davidson Gunter MD [address] [place] [address], [address] [place] [address] 02/14/2026 10:10 AM EDT Office Visit [facility] [address] [place] [address] [place] [address] Talon Seth DO [address] [place] [address] documented as of this encounter Visit Diagnoses [...] documented as of this encounter Care Teams Business Practices Supervisor Relationship Specialty Start Date End Date Damien Lance MD [email or web address] PCP - General Internal Medicine 07/18/17 09/14/18 Xuan Ferraro DO [address] [place] [address] [email or web address] PCP - General 09/15/18 01/15/21 Harris Lennon MD 22 [facility], [address] [place] [address] [email or web address] PCP - General Internal Medicine 01/16/21 Damien Lance MD 22 [facility] Floor 1 [place] [address] [email or web address] Insurance Assigned Provider 07/16/17 06/09/19 Xuan Ferraro DO [address] [place] [address] [email or web address] Insurance Assigned Provider 06/09/19 10/06/21 Kory Vogt MD [address] [place] [address] [email or web address] Gastroenterology 10/07/21 Xuan Ferraro DO [address] [place] [address] @[email or web address] Insurance Assigned Provider 06/09/19 12/19/21 Harris Lennon MD [address] [place] [address], [address] [place] [address] [email or web address] Insurance Assigned Provider 12/17/23 Margarita Davidson RN [address] [place] [address], [address] [place] [address] [email or web address] PHCM Early Childhood Teacher Assistant 06/02/22 06/29/22 Margarita Davidson RN [address] [place] [address], [address] [place] [address] [email or web address] PHC Early Childhood Teacher AssistantMicrobiology Instructor 07/01/22 02/17/25 Jyoti Aviles, OT [address] [place] [address] [email or web address] Early Childhood Teacher AssistantBarge Hand Therapy 12/12/2312/14/23 documented as of this encounter Additional Source Comments The information contained in this document represents components of the legal health record. It is not the complete legal health record.[facility]
--- OUTSIDE RECORDS SUMMARY | 2025-07-12 11:57 | XMS_ITS | Encounter Summary ---
Author Organization [facility] Address [address] [place] [address] Phone Care Team Providers Care Systems Test Engineer Name Role Phone Harris Lennon MD Primary Care Provider [phone] Kory Vogt MD Unavailable Harris Lennon MD Unavailable [phone] Margarita Davidson RN Unavailable [email or web address] Encounter Details Date Type Department Care Team (Latest Contact Info) Description 08/02/2024 Transcribe Orders Virtual Department [address] [place] [address] Harris Lennon MD 22 [facility], [address] [place] [address] [email or web address] Breast screening (Primary Dx) Social [...] Description 04/08/2025 Procedure Pass [facility] [address] [place] [address] 07/30/2025 10:45 AM EST Office Visit [facility] [address] [place] [address] [place] [address] Harris Lennon MD [address] [place] [address], [address] [place] [address] 09/09/2025 11:15 AM EST Appointment [facility] [address] [place] [address] Stacie Gruber PA-C [address] [place] [address] 09/27/2025 10:40 AM EST Office Visit [facility] [address] [place] [address] 3rd Floor, [address] [place] [address] Davidson Gunter MD [address] [place] [address], [address] [place] [address] 02/14/2026 10:10 AM EDT Office Visit [facility] [address] [place] [address] Talon Seth, [address] [place] [address] documented as of this encounter Results * [...] documented as of this encounter Care Teams Systems Test Engineer Relationship Specialty Start Date End Date Harris Lennon MD [address] [place] [address], [address] [place] [address] PCP - General Internal Medicine 01/16/21 Kory Vogt MD [address] [place] [address] Gastroenterology 10/07/21 Harris Lennon MD [address] [place] [address], [address] [place] [address] Insurance Assigned Provider 12/17/23 Margarita Davidson, MARIZOL [address] [place] [address], [address] [place] [address] [email or web address] PHCM ApproverCanvassing Manager 07/01/22 02/17/25 documented as of this encounter Additional Source Comments The information contained in this document represents components of the legal health record. It is not the complete legal health record.[facility]
--- OUTSIDE RECORDS SUMMARY | 2025-07-12 11:58 | XMS_ITS | Encounter Summary ---
Author Organization [facility] Address [address] [place] [address] Phone Care Team Providers Care Surface Supply Breathing Apparatus Name Role Phone Harris Lennon MD Primary Care Provider [phone] Kory Vogt MD Unavailable Harris Lennon MD Unavailable [phone] Margarita Davidson RN Unavailable [email or web address] Jyoti Aviles OT Unavailable [phone] Encounter Details Date Type Department Care Team (Late st Contact Info) Description 08/08/2023 Procedure Pass [facility], [address] [address] Social History Tobacco Use Types Packs/Day Years [...] Description 04/08/2025 Procedure Pass [facility] [address] [place] [address] 07/30/2025 10:45 AM EST Office Visit [facility] [address] [place] [address] [place] [address] Harris Lennon MD [address] [place] [address], [address] [place] [address] 09/09/2025 11:15 AM EST Appointment Echo Lab [address] [place] [address] Stacie Gruber PA-C [address] [place] [address] 09/27/2025 10:40 AM EST Office Visit [facility] [address] [place] [address] Dr 3rd Floor, [address] [place] [address] Davidson Gunter MD [address] [place] [address], [address] [place] [address] 02/14/2026 10:10 AM EDT Office Visit [facility] [address] [place] [address] [place] [address] Talon Seth DO [address] [place] [address] documented as of this encounter Visit Diagnoses Not on filedocumented in this encounter Additional Health Concerns Infection Onset Date Last Indicated Resolved Time CoV-Risk 11/16/2023 11/16/2023 11/27/2023 1:21 AM EDT Assessment Noted Time PHQ-9 Depression Total Score: 15 018 2:17 PM EST PHQ-2 Depression Total Score: 0 06/22/20 23 1:25 PM EDT documented as of this encounter Care Teams Surface Supply Breathing Apparatus Relationship Specialty Start Date End Date Harris Lennon MD [address] [place] [address], [address] [place] [address] [email or web address] PCP - General Internal Medicine 01/16/21 Kory Vogt MD [address] [address] [email or web address] Gastroenterology 10/07/21 Harris Lennon MD [address] [place] [address], [address] [place] [address] [email or web address] Insurance Assigned Provider 12/17/23 Margarita Davidson, RN [address] [place] [address], [address] [place] [address] [email or web address] PHCM Director AmbulatoryCareer Advisor 07/01/22 02/17/25 Jyoti Aviles, OT [address] [place] [address] Transitions Director AmbulatoryMarine Mammal Trainer Therapy 12/12/2312/14/23 documented as of this encounter Additional Source Comments The information contained in this document represents components of the legal health record. It is not the complete legal health record.[facility]
--- OUTSIDE RECORDS SUMMARY | 2025-07-12 11:58 | XMS_ITS | Encounter Summary ---
Author Organization [facility] Address [address] [place] [address] Phone Care Team Providers Care Cupboard Builder Name Role Phone Harris Lennon MD Primary Care Provider [phone] Kory Vogt MD Unavailable Xuan Ferraro DO Unavailable [phone] Harris Lennon MD Unavailable [phone] Margarita Davidson RN Unavailable [email or web address] Margarita Davidson RN Unavailable [email or web address] Jyoti Aviles OT Unavailable [phone] Encounter Details Date Type Department Care Team (Latest Contact Info) Description 11/25/2021 Transcribe Orders [facility] Laboratory [address] [address] Margarita Hart, NIKO 10 [place] [address] Abdominal pain, right lower quadrant (Primary Dx) [...] Description 04/08/2025 Procedure Pass Echo Lab [address] [place] [address] 07/30/2025 10:45 AM EST Office Visit [facility] Medicine [address] [place] [address] [place] [address] Harris Lennon MD [address] [place] [address], [address] [place] [address] 09/09/2025 11:15 AM EST Appointment Echo Lab [address] [place] [address] Stacie Gruber PA-C [address] [place] [address] 09/27/2025 10:40 AM EST Office Visit [facility] [address] [place] [address] 3rd Floor, [address] [place] [address] Davidson Gunter MD [address] [place] [address], [address] [place] [address] 02/14/2026 10:10 AM EDT Office Visit [facility] [address] [place] [address] [place] [address] Talon Seth DO 22 [place] [address] documented as of this encounter Results * (ABNORMAL) Comprehensive metabolic panel (11/25/2021 4:16 PM EDT) SODIUM 128(L) 133 - 146 mmol/L [facility] POTASSIUM 4.4 3.3 - 5.1 mmol/L [facility] CHLORIDE 96 96 - 108 mmol/L [facility] CO2 25 21 - 35 mmol/L [facility] BUN 10 6 - 19 mg/dL [facility] CREATININE 0.50 0.5 - 1.5 mg/dL [facility] GLUCOSE 97 70 - 99 mg/dL [facility] ALBUMIN 4.3 3.9 - 4.8 g/dL [facility] TOTAL PROTEIN 7.3 6.5 - 8.0 g/dL [facility] CALCIUM 9.2 8.4 - 10.3 mg/dL [facility] ALKALINE PHOSPHATASE 62 39 - 117 U/L [facility] TOTAL BILIRUBIN 0.2 0.0 - 1.2 mg/dL [facility] AST 25 0 - 37 U/L [facility] ALT 16 0 - 40 U/L [facility] GLOBULIN 3.0 1 - 4.8 g/dL [facility] EGFR 97 >59 mL/min/1.7 3m2 [facility] Comment:Estimated glomerular filtration rate calculated using the CKD-EPI refit equation. ANION GAP 11 10 - 20 mmol/L [facility] Blood 11/25/2021 4:16 PM EDT 11/25/2021 4:17 PM EDT Margarita Hart NP LAB BLOOD ORDERABLES Sofía hodge Result Performing Organization Address City/State/[facility] Co de Phone Number [address] [address] * (ABNORMAL) CBC and differential (11/25/2021 4:16 PM EDT) WBC 6.38 4.00 - 11.00 K/uL [facility] RBC 3.98 3.72 - 5.30 M/uL [facility] HGB 12.4 11.4 - 15.9 g/dL [facility] HCT 37.2 34.2 - 46.8 % [facility] PLT 277 140 - 430 K/uL [facility] MCV 93.5 78.0 - 97.0 fL [facility] MCH 31.2 25.0 - 33.0 pg [facility] MCHC 33.3 32.0 - 36.0 g/dL [facility] RDW 13.5 11.0 - 16.0 % [facility] MPV 10.2 8.4 - 12.8 fl [facility] NRBC 0.00 0 /100 WBCs [facility] ABSOLUTE NRBC 0.00 0 K/uL [facility] DIFF METHOD Auto [facility] NEUTS 55.3 43.0 - 75.0 % [facility] LYMPHS 25.4 18.2 - 47.4 % [facility] MONOS 13.2(H) 4.00 - 11.00 % [facility] EOS 5.3 0.0 - 8.0 % [facility] BASOS 0.5 0.0 - 2.0 % [facility] Granulocytes, immature (%) 0.3 0.0 - 0.9 % [facility] ABSOLUTE NEUTS 3.53 1.80 - 7.70 K/uL [facility] ABSOLUTE LYMPHS 1.62 1.00 - 3.10 K/uL [facility] ABSOLUTE MONOS 0.84(H) 0.20 - 0.80 K/uL [facility] ABSOLUTE EOS 0.34 0.00 - 0.80 K/uL [facility] ABSOLUTE BASOS 0.03 0.00 - 0.09 K/uL [facility] Granulocytes, immature 0.02 0.00 - 0.05 K/uL [facility] Blood 11/25/2021 4:16 PM EDT 11/25/2021 4:17 PM EDT us Margarita Hart NP LAB BLOOD ORDERABLES Sofía hodge Result [facility] [address] [place] [address] documented in this encounter Visit [...] documented as of this encounter Care Teams Cupboard Builder Relationship Specialty Start Date End Date Harris Lennon MD [address] [place] [address], [address] [place] [address] PCP - General Internal Medicine 01/16/21 Kory Vogt MD [address] [place] [address] Gastroenterology 10/07/21 Xuan Ferraro DO [address] [place] [address] [email or web address] Insurance Assigned Provider 06/09/19 12/19/21 Harris Lennon MD [address] [place] [address], [address] [place] [address] Insurance Assigned Provider 12/17/23 Margarita Davidson RN [address] [place] [address], [address] [place] [address] [email or web address] PHCM Golf Cart Attendant 06/02/22 06/29/22 Margarita Davidson RN [address] [place] [address], [address] [place] [address] [email or web address] PHCM Golf Cart AttendantSkate Hop 07/01/22 02/17/25 Jyoti Aviles, OT [address] [place] [address] Transitions Golf Cart AttendantCheese Cooker Therapy 12/12/2312/14/23 documented as of this encounter Additional Source Comments The information contained in this document represents components of the legal health record. It is not the complete legal health record.[facility]
--- OUTSIDE RECORDS SUMMARY | 2025-07-12 11:58 | XMS_ITS | Encounter Summary ---
Author Organization [facility] Address [address] [place] [address] Phone Care Team Providers Care Kitchenhand Name Role Phone Damien Lance MD Primary Care Provide r Xuan Ferraro DO Primary Care Provider + [phone] Damien Lance MD Unavailable [phone] Xuan Ferraro DO Unavailable [phone] Harris Lennon MD Primary Care Provider + [phone] Kory Vogt MD Unavailable Xuan Ferraro DO Unavailable [phone] Harris Lennon MD Unavailable [phone] Margarita Davidson RN Unavailable [email or web address] Margarita Davidson RN Unavailable [email or web address] Jyoti Aviles OT Unavailable [phone] Encounter Details Date Type Department Care Team (Late st Contact Info) Description 03/29/2018 Ancillary Orders [facility] [address] [place] [address] Damien Lance MD [address] [facility] Floor 1 [place] [address] [email or web address] Breast screening Social History Tobacco Use Types [...] Description 04/08/2025 Procedure Pass Echo Lab [address] [place] [address] 07/30/2025 10:45 AM EST Office Visit [address] [place] [address] Harris Lennon MD [address] [place] [address], [address] [place] [address] 09/09/2025 11:15 AM EST Appointment Echo Lab [address] [place] [address] Stacie Gruber PA-C [address] [place] [address] 09/27/2025 10:40 AM EST Office Visit [facility] [address] [place] [address] 3rd Floor, [address] [place] [address] Davidson Gunter MD [address] [place] [address], [address] [place] [address] 02/14/2026 10:10 AM EDT Office Visit [facility] [address] [place] [address] [place] [address] Talon Seth DO [address] [place] [address] [email or web address] documented as of this encounter Results [...] There are scattered fibroglandular densities. POS - [id number] Narrative 05/11/2018 1:25 PM EDT Full-field digital [...] There are scattered fibroglandular densities. POS - [id number] Damien Lance MD IMG MG EXAMS Final [...] documented as of this encounter Care Teams Kitchenhand Relationship Specialty Start Date End Date Damien Lance MD [email or web address] PCP - General Internal Medicine 07/18/17 09/14/18 Xuan Ferraro DO [address] [place] [address] [email or web address] PCP - General 09/15/18 01/15/21 Harris Lennon MD [address] [facility], [address] [place] [address] [email or web address] PCP - General Internal Medicine 01/16/21 Damien Lance MD [address] [facility] Floor 1 [place] [address] [email or web address] Insurance Assigned Provider 07/16/17 06/09/19 Xuan Ferraro DO [address] [place] [address] [email or web address] Insurance Assigned Provider 06/09/19 10/06/21 Kory Vogt MD [address] [address] [email or web address] Gastroenterology 10/07/21 Xuan Ferraro DO [address] [place] [address] [email or web address] Insurance Assigned Provider 06/09/19 12/19/21 Harris Lennon MD [address] [place] [address], [address] [place] [address] [email or web address] Insurance Assigned Provider 12/17/23 Margarita Davidson RN [address] [place] [address], [address] [place] [address] [email or web address] PHCM Material Stockkeeper Yard 06/02/22 06/29/22 Margarita Davidson RN [address] [place] [address], [address] [place] [address] [email or web address] PHC Material Stockkeeper YardPlatform Engineer 07/01/22 02/17/25 Jyoti Aviles, OT [address] [place] [address] [email or web address] Transitions Material Stockkeeper YardWater Tester Therapy 12/12/2312/14/23 documented as of this encounter Additional Source Comments The information contained in this document represents components of the legal health record. It is not the complete legal health record.[facility]
--- OUTSIDE RECORDS SUMMARY | 2025-07-12 11:58 | XMS_ITS | Encounter Summary ---
Author Organization [facility] Address [address] [place] [address] Phone Care Team Providers Care Glove Maker Name Role Phone Xuan Ferraro DO Unavailable [phone] Harris Lennon MD Primary Care Provider [phone] Kory Vogt MD Unavailable Xuan Ferraro DO Unavailable [phone] Harris Lennon MD Unavailable [phone] Margarita Davidson RN Unavailable [email or web address] Margarita Davidson RN Unavailable [email or web address] Jyoti Aviles OT Unavailable [phone] Encounter Details Date Type Department Care Team (Late st Contact Info) Description 07/28/2021 Procedure Pass [address] [address] Social History Tobacco Use Types Packs/Day Years [...] Description 04/08/2025 Procedure Pass Echo Lab [address] [place] [address] 07/30/2025 10:45 AM EST Office Visit [facility] Medicine [address] [place] [address] [place] [address] Harris Lennon MD [address] [place] [address], [address] [place] [address] 09/09/2025 11:15 AM EST Appointment Echo Lab [address] [place] [address] Stacie Gruber PA-C [address] [place] [address] 09/27/2025 10:40 AM EST Office Visit [facility] [address] [place] [address] 3rd Floor, [address] [place] [address] Davidson Gunter MD [address] [place] [address], [address] [address] 02/14/2026 10:10 AM EDT Office Visit [facility] [address] [place] [address] [place] [address] Talon Seth DO [address] [place] [address] documented as of this encounter Visit Diagnoses [...] documented as of this encounter Care Teams Glove Maker Relationship Specialty Start Date End Date Harris Lennon MD [address] [place] [address], [address] [place] [address] PCP - General Internal Medicine 01/16/21 Xuan Ferraro DO [address] [place] [address] [email or web address] Insurance Assigned Provider 06/09/19 10/06/21 Kory Vogt MD [address] [place] [address] Gastroenterology 10/07/21 Xuan Ferraro DO [address] [place] [address] [email or web address] Insurance Assigned Provider 06/09/19 12/19/21 Harris Lennon MD [address] [place] [address], [address] [place] [address] Insurance Assigned Provider 12/17/23 Margarita Davidson RN [address] [place] [address], [address] [place] [address] [email or web address] PHCM Quarry Plug And Feather Driller 06/02/22 06/29/22 Margarita Davidson RN [address] [place] [address], [address] [place] [address] [email or web address] PHCM Quarry Plug And Feather DrillerTop Stop Attacher 07/01/22 02/17/25 Jyoti Aviles, OT [address] [place] [address] [email or web address] Transitions Quarry Plug And Feather DrillerPulverizer Mill Operator Therapy 12/12/2312/14/23 documented as of this encounter Additional Source Comments The information contained in this document represents components of the legal health record. It is not the complete legal health record.[facility]
--- OUTSIDE RECORDS SUMMARY | 2025-07-12 11:58 | XMS_ITS | Encounter Summary ---
Author Organization [facility] Address [address] [place] [address] Phone Care Team Providers Care Tie Mill Operator Name Role Phone Xuan Ferraro DO Unavailable [phone] Harris Lennon MD Primary Care Provider [phone] Kory Vogt MD Unavailable Xuan Ferraro DO Unavailable [phone] Harris Lennon MD Unavailable [phone] Margarita Davidson RN Unavailable [email or web address] Margarita Davidson RN Unavailable [email or web address] Jyoti Aviles OT Unavailable [phone] Encounter Details Date Type Department Care Team (Late st Contact Info) Description 05/20/2021 Procedure Pass [facility], Ct Scan - [address] [address] Social History Tobacco Use Types Packs/Day Years [...] 11:28 AM EDT Chloe Robles RN * Martin Suicide Severity Rating Scale (Screener/Recent Self-Report) Question [...] Info) Description 04/08/2025 Procedure Pass Echo Lab [address] [place] [address] 07/30/2025 10:45 AM EST Office Visit [facility] Medicine [address] [place] [address] [place] [address] Harris Lennon MD [address] [place] [address], [address] [place] [address] 09/09/2025 11:15 AM EST Appointment Echo Lab [address] [place] [address] Stacie Gruber PA-C [address] [place] [address] 09/27/2025 10:40 AM EST Office Visit [facility] [address] [place] [address] 3rd Floor, [address] [place] [address] Davidson Gunter MD [address] [place] [address], [address] [place] [address] 02/14/2026 10:10 AM EDT Office Visit [place] [address] [place] [address] [email or web address] documented as of this encounter Visit Diagnoses [...] documented as of this encounter Care Teams Tie Mill Operator Relationship Specialty Start Date End Date Harris Lennon MD [address] [place] [address] [address] [place] [address] [email or web address] PCP - General Internal Medicine 01/16/21 Xuan Ferraro DO [address] [place] [address] [email or web address] Insurance Assigned Provider 06/09/19 10/06/21 Kory Vogt MD [address] [place] [address] [email or web address] Gastroenterology 10/07/21 Xuan Ferraro DO [address] [place] [address] [email or web address] Insurance Assigned Provider 06/09/19 12/19/21 Harris Lennon MD [address] [place], [place] [address] [place] [address] [email or web address] Insurance Assigned Provider 12/17/23 Margarita Davidson RN [address] [facility], [address] [place] [address] PHCM Belt Tender 06/02/22 06/29/22 Margarita Davidson RN [address] [place] [address], [address] [place] [address] PHC Belt TenderSecond Cook And Baker 07/01/22 02/17/25 Jyoti Aviles, OT [address] [place] [address] [email or web address] Transitions Belt TenderBiology Specimen Technician Therapy 12/12/2312/14/23 documented as of this encounter Additional Source Comments The information contained in this document represents components of the legal health record. It is not the complete legal health record.[facility]
--- OUTSIDE RECORDS SUMMARY | 2025-07-12 11:58 | XMS_ITS | Encounter Summary ---
Author Organization [facility] Address [address] [place] [address] Phone Care Team Providers Care Truck Guard Name Role Phone Harris Lennon MD Primary Care Provider [phone] Kory Vogt MD Unavailable Harris Lennon MD Unavailable [phone] Margarita Davidson RN Unavailable [email or web address] Jyoti Aviles OT Unavailable [phone] Encounter Details Date Type Department Care Team (Late st Contact Info) Description 02/08/2023 Procedure Pass Echo Lab [address] [place] [id number] Social History Tobacco Use Types Packs/Day Years [...] Info) Description 04/08/2025 Procedure Pass Echo Lab [address] [place] [address] 07/30/2025 10:45 AM EST Office Visit [facility] [place] [facility] [address] [place] [address] [place] [address] Harris Lennon MD [address] [place] [address], [address] [place] [address] 09/09/2025 11:15 AM EST Appointment Echo Lab [address] [place] [address] Stacie Gruber PA-C [address] [place] [address] 09/27/2025 10:40 AM EST Office Visit [facility] [address] [place] [address] Dr 3rd Floor, [address] [place] [address] Davidson Gunter MD [address] [place] [address], [address] [place] [address] 02/14/2026 10:10 AM EDT Office Visit [facility] [address] [place] [address] [place] [address] Talon Seth DO [address] [place] [address] documented as of this encounter Visit Diagnoses Not on filedocumented in this encounter Additional Health Concerns Infection Onset Date Last Indicated Resolved Time CoV-Risk 11/16/2023 11/16/2023 11/27/2023 1:21 AM EDT Assessment Noted Time PHQ-9 Depression Total Score: 15 018 2:17 PM EST PHQ-2 Depression Total Score: 0 06/22/20 23 1:25 PM EDT documented as of this encounter Care Teams Truck Guard Relationship Specialty Start Date End Date Harris Lennon MD [address] [place] [address], [address] [place] [address] PCP - General Internal Medicine 01/16/21 Kory Vogt MD [address] [address] Gastroenterology 10/07/21 Harris Lennon MD [address] [place] [address], [address] [place] [address] Insurance Assigned Provider 12/17/23 Margarita Davidson, RN [address] [place] [address], [address] [place] [address] PHCM Wood Turning Lathe OperatorFruit Checker 07/01/22 02/17/25 Jyoti Aviles, OT [address] [place] [address] [email or web address] Transitions Wood Turning Lathe OperatorSisal Picker Therapy 12/12/2312/14/23 documented as of this encounter Additional Source Comments The information contained in this document represents components of the legal health record. It is not the complete legal health record.[facility]
--- OUTSIDE RECORDS SUMMARY | 2025-07-12 11:58 | XMS_ITS | Encounter Summary ---
Author Organization [facility] Address [address] [place] [address] Phone Care Team Providers Care Head Waiter Name Role Phone Xuan Ferraro DO Unavailable [phone] Harris Lennon MD Primary Care Provider [phone] Kory Vogt MD Unavailable Xuan Ferraro DO Unavailable [phone] Harris Lennon MD Unavailable [phone] Margarita Davidson RN Unavailable [email or web address] Margarita Davidson RN Unavailable [email or web address] Jyoti Aviles OT Unavailable [phone] Encounter Details Date Type Department Care Team (Latest Contact Info) Description 07/28/2021 Transcribe Orders Virtual Department [address] [place] [address] Harris Lennon MD [address] [facility], [address] [place] [address] [email or web address] Breast screening (Primary Dx) Social [...] Description 04/08/2025 Procedure Pass Echo Lab [address] [place] [address] 07/30/2025 10:45 AM EST Office Visit [facility] [address] [place] [address] [place] [address] Harris Lennon MD [address] [place] [address], [address] [place] [address] 09/09/2025 11:15 AM EST Appointment Echo Lab [address] [place] [address] Stacie Gruber PA-C [address] [place] [address] 09/27/2025 10:40 AM EST Office Visit [facility] [address] [place] [address] 3rd Floor, [address] [place] [address] Davidson Gunter MD [address] [place] [address], [address] [place] [address] 02/14/2026 10:10 AM EDT Office Visit [facility] [address] [place] [address] [place] [address] Talon Seth DO [address] [place] [address] documented as of this encounter Results * [...] documented as of this encounter Care Teams Head Waiter Relationship Specialty Start Date End Date Harris Lennon MD [address] [place] [address], [address] [place] [address] [email or web address] PCP - General Internal Medicine 01/16/21 Xuan Ferraro DO [address] [place] [address] [email or web address] Insurance Assigned Provider 06/09/19 10/06/21 Kory Vogt MD [address] [place] [address] [email or web address] 10/07/21 Xuan Ferraro DO [address] [place] [address] [email or web address] Insurance Assigned Provider 06/09/19 12/19/21 Harris Lennon MD [address] [place] [address], [address] [place] [address] [email or web address] Insurance Assigned Provider 12/17/23 Margarita Davidson RN [address] [facility], [address] [place] [address] PHC Receiver Dispatcher 06/02/22 06/29/22 Margarita Davidson RN [address] [place] [address], [address] [place] [address] PHC Receiver DispatcherLozenge Dough Mixer 07/01/22 02/17/25 Jyoti Aviles, OT [address] [place] [address] [email or web address] Transitions Receiver DispatcherCommunity Recreation Programmer Therapy 12/12/2312/14/23 documented as of this encounter Additional Source Comments The information contained in this document represents components of the legal health record. It is not the complete legal health record.[facility]
--- OUTSIDE RECORDS SUMMARY | 2025-07-12 11:58 | XMS_ITS | Encounter Summary ---
Author Organization [facility] Address [address] [place] [address] Phone Care Team Providers Care Tooth Cutter Pinion Name Role Phone Harris Lennon MD Primary Care Provider [phone] Koyr Vogt MD Unavailable Xuan Ferraro DO Unavailable [phone] Harris Lennon MD Unavailable Margarita Davidson RN Unavailable [email or web address] Margarita Davidson RN Unavailable [email or web address] Jyoti Aviles OT Unavailable [phone] Reason for Referral * MRI/CAT Scan - Closed Specialty Diagnoses / Procedures Referred By Contac t Referred To Contact Radiology Diagnoses RLQ abdominal pain Procedures CT Abdomen/Pelvis Margarita Hart NP Phone: tel: fax: Referral ID Status Reason Start Date Expiration Date Visits Re quested Visits Authorized [id number] Closed 11/26/2021 11/26/2022 1 1 Encounter Details Date Type Department Care Team (Latest Contact Info) Description 11/26/2021 Transcribe Orders Virtual Department 30 [place], [place] [phone] Margarita Hart NP [address] [place] [address] RLQ abdominal pain (Primary Dx) Social History [...] Info) Description 04/08/2025 Procedure Pass Echo Lab [address] [place] [address] 07/30/2025 10:45 AM EST Office Visit [facility] [address] [place] [address] [place] [address] Harris Lennon MD [address] [place] [address], [address] [place] [address] 09/09/2025 11:15 AM EST Appointment Echo Lab [address] [place] [address] Stacie Gruber PA-C [address] [place] [address] 09/27/2025 10:40 AM EST Office Visit [facility] [address] [place] [address] 3rd Floor, [address] [place] [address] Davidson Gunter MD [address] [place] [address], [address] [place] [address] 02/14/2026 10:10 AM EDT Office Visit [facility] [address] [place] [address] [place] [address] Talon Seth, DO [address] [place] [address] [email or web address] documented as of this encounter Results * [...] of cystitis. POS - [id number] Margarita Hart DIRECTOR CREDIT RISK IMG CT ABD/PELVIS Final R esult documented [...] documented as of this encounter Care Teams Tooth Cutter Pinion Relationship Specialty Start Date End Date Harris Lennon MD [address] [place] [address], [address] [place] [address] [email or web address] PCP - General Internal Medicine 01/16/21 Kory Vogt MD [address] [address] [email or web address] Gastroenterology 10/07/21 Xuan Ferraro DO [address] [place] [address] [email or web address] Insurance Assigned Provider 06/09/19 12/19/21 Harris Lennon MD [address] [place] [address], [address] [place] [address] [email or web address] Insurance Assigned Provider 12/17/23 Margarita Davidson, MARIZOL [address] [place] [address], [address] [place] [address] [email or web address] [facility] Solution Designer 06/02/22 06/29/22 Margarita Davidson, RN 22 [facility], [address] [place] [address] [email or web address] PHCM Solution DesignerFamily Practitioner 07/01/22 02/17/25 Jyoti Aviles, OT 30 [place] [address] [email or web address] Transitions Solution DesignerGlove Operator Therapy 12/12/2312/14/23 documented as of this encounter Additional Source Comments The information contained in this document represents components of the legal health record. It is not the complete legal health record.[facility]
--- OUTSIDE RECORDS SUMMARY | 2025-07-12 11:58 | XMS_ITS | Encounter Summary ---
Author Organization [facility] Address [address] [place] [address] Phone Care Team Providers Care Retail Associate Name Role Phone Xuan Ferraro DO Unavailable [phone] Harris Lennon MD Primary Care Provider [phone] Kory Vogt MD Unavailable Xuan Ferraro DO Unavailable [phone] Harris Lennon MD Unavailable [phone] Margarita Davidson RN Unavailable [email or web address] Margarita Davidson RN Unavailable [email or web address] Jyoti Aviles OT Unavailable [phone] Encounter Details Date Type Department Care Team (Late st Contact Info) Description 05/20/2021 Procedure Pass [facility], Ct Scan - [address] [address] Social History Tobacco Use Types Packs/Day Years [...] 11:28 AM EDT Chloe Robles RN * [place] Suicide Severity Rating Scale (Screener/Recent Self-Report) Question [...] Description 04/08/2025 Procedure Pass Echo Lab [address] [place] [address] 07/30/2025 10:45 AM EST Office Visit [facility] [address] [place] [address] [place] [address] Harris Lennon MD [address] [place] [address], [address] [place] [address] 09/09/2025 11:15 AM EST Appointment Echo Lab [address] [place] [address] Stacie Gruber PA-C [address] [place] [address] 09/27/2025 10:40 AM EST Office Visit [facility] [address] [place] [address] 3rd Floor, [address] [place] [address] Davidson Gunter MD [address] [place] [address], [address] [place] [address] 02/14/2026 10:10 AM EDT Office Visit [facility] [address] [place] [address] documented as of this encounter Visit Diagnoses [...] documented as of this encounter Care Teams Retail Associate Relationship Specialty Start Date End Date Harris Lennon MD [address] [place] [address] [address] [place] [address] PCP - General Internal Medicine 01/16/21 Xuan Ferraro DO [address] [place] [address] [email or web address] Insurance Assigned Provider 06/09/19 10/06/21 Kory Vogt MD [address] [place] [address] Gastroenterology 10/07/21 Xuan Ferraro DO [address] [place] [address] [email or web address] Insurance Assigned Provider 06/09/19 12/19/21 Harris Lennon MD [address] [place], [place] [address] [place] [address] [email or web address] Insurance Assigned Provider 12/17/23 Margarita Davidson RN 22 [facility], [address] [place] [address] [email or web address] PHCM Optoelectronic Technician 06/02/22 06/29/22 Margarita Davidson RN [address] [place] [address], [address] [place] [address] [email or web address] PHC Optoelectronic TechnicianWindshield Wiper Repairer 07/01/22 02/17/25 Jyoti Aviles, OT [address] [place] [address] [email or web address] Transitions Optoelectronic TechnicianCementer Hand Therapy 12/12/2312/14/23 documented as of this encounter Additional Source Comments The information contained in this document represents components of the legal health record. It is not the complete legal health record.[facility]
--- OUTSIDE RECORDS SUMMARY | 2025-07-12 11:58 | XMS_ITS | Encounter Summary ---
Author Organization [facility] Address [address] [place] [address] Phone Care Team Providers Care Provider Scribe Name Role Phone Harris Lennon MD Primary Care Provider [phone] Kory Vogt MD Unavailable Harris Lennon MD Unavailable [phone] Margarita Davidson RN Unavailable [email or web address] Jyoti Aviles OT Unavailable [phone] Encounter Details Date Type Department Care Team (Late st Contact Info) Description 12/09/2023 Procedure Pass [facility], [address] [address] Social History Tobacco Use Types Packs/Day Years [...] 9:00 PM EDT Bethany Camejo, MARIZOL * [place] Suicide Severity Rating Scale (Screener/Recent Self-Report) Question [...] Description 04/08/2025 Procedure Pass Echo Lab [address] [place] [address] 07/30/2025 10:45 AM EST Office Visit [facility] [address] [place] [address] Harris Lennon MD [address] [place] [address], [address] [place] [address] 09/09/2025 11:15 AM EST Appointment Echo Lab [address] [place] [address] Stacie Gruber PA-C [address] [place] [address] 09/27/2025 10:40 AM EST Office Visit [facility] [address] [place] [address] 3rd Floor, [address] [place] [address] Davidson Gunter MD [address] [place] [address], [address] [place] [address] 02/14/2026 10:10 AM EDT Office Visit [facility] 22 [place] [address] Talon Seth DO 22 [place] [address] documented as of this encounter Visit Diagnoses Not on filedocumented in this encounter Additional Health Concerns Assessment Noted Time PHQ-9 Depression Total Score: 15 018 2:17 PM EST PHQ-2 Depression Total Score: 0 06/22/20 23 1:25 PM EDT documented as of this encounter Care Teams Provider Scribe Relationship Specialty Start Date End Date Harris Lennon MD [address] [place] [address], [address] [place] [address] PCP - General Internal Medicine 01/16/21 Kory Vogt MD [address] [place] [address] Gastroenterology 10/07/21 Harris Lennon MD [address] [place] [address], [address] [place] [address] Insurance Assigned Provider 12/17/23 Margarita Davidson, MARIZOL [address] [place] [address], [address] [place] [address] [email or web address] PHCM Bag Shop WorkerAdjunct Professor Of Law 07/01/22 02/17/25 Jyoti Aviles, OT [address] [place] [address] [email or web address] Transitions Bag Shop WorkerTool Filer Hand Therapy 12/12/2312/14/23 documented as of this encounter Additional Source Comments The information contained in this document represents components of the legal health record. It is not the complete legal health record.[facility]
--- OUTSIDE RECORDS SUMMARY | 2025-07-12 11:58 | XMS_ITS | Data Portability ---
Author Organization [place] - [facility] Address [address] [place] [address] Care Team Providers Care Babcock Tester Name Role Phone ESTRADAIVETTE Primary Care Provider Assessment Encounter Date Assessment Date Assessment LastModified by Organization Details LastModified Time 08/19/2020 08/19/2020 Overview/History : 74-year-old female with past medical history significant for asthma, COPD, depression, dementia, hyperlipidemia, hypertension, history of PE and TIA, aortic dissection status post repair and aortic valve replacement, PAF on coumadin, and osteoporosis, new to [facility], who presents with complaints of tick [...] WB and NE tick panel pending. Plan/Discussion: [facility] came to evaluate your rash. You [...] days. Thank you for your visit with [facility] today. We cannot always find the exact [...] in your condition between 8am-10pm, please call [facility] at [phone] to help navigate your care. Time On Scene with Patient: 00:51:41 [email or web address] Not available 08/19/2020 12:31:00 Plan of Treatment Reminders Order Date Submit Date Provider Last Modified By Organization Details Last Modified Time Details Appointments None recorded. Lab lyme disease Ab, total, serum 2019 HIRAM [facility] (Centralized Electronic Ordering - All Locations), Patient Can Go To The Location Of Their Choice, [address] 0 16:27:56 tick-borne disease panel 2019 [facility] (Centralized Electronic Ordering - All Locations), Patient Can Go To The Location Of Their Choice, [address] 1 13:50:37 Referral None recorded. Procedures None recorded. Surgeries None recorded. Imaging None recorded. Medication Orders doxycycline hyclate 100 mg capsule 2019 simeon [id number], [address] [facility], [place], [address], 0 12:12:53 Patient TargetsNo targets recorded. Patient Instructions Encounter Date Encounter Id Patient Instructions Last Modified By Organization Details Last Modified Time 08/19/2020 [id number] [facility] came to evaluate your rash. You [...] days. [facility]. We cannot always find the [...] in your condition between 8am-10pm, please call [facility] at [phone] to help navigate your care. simeon Not [...] Go To The Location Of Their Choice, [address] 08/21/2020 16:27:56 Result Notes None recorded. Problems Name Problem SNOMED Code Status Onset Date Resolution Date Notes Provider Name and Address Organization Details Recorded Time Dementia 37500273 Active 020 CECI VERA [address], [address] , [place] [facility] 0 11:23:51 Problem Notes None recorded. Procedures Surgical History Date Name Laterality Status Provider Name and Address Organization Details Recorded Time 08/19/20 20 Venipuncture - DH completed CECI VERA [address], [place], [address], [place] [facility] 08/19/2020 12:21:11 Imaging Results None recorded. Procedure Notes None recorded. Medical Equipment None Reported. Allergies Allergen ID Allergen Name Allergen Category Reaction Reaction Severity Criticality Documentation Date Start Date Code Code System Note Provider Name and Address Organization Details Recorded Time 672473 Substance with sulfonami de structure and antibacte rial mechanism of action (substanc e) medicatio n Not available Not available Not available 08/19/2020 32853 8003 SNOMED CECI VERA [address] [place], [address], [place] [facility] 0 11:22:26 616253 Product containin g penicilli n (product) medicatio n Not available Not available Not available 08/19/2020 25803 8001 SNOMED CECI VERA [address] [place], [address], [place] [facility] 0 11:22:41 573913 acetamino phen / oxycodone medicatio n Not available Not available Not available 08/19/2020 04469 3 RxNorm CECI VERA [address], [place], [address], [place] [facility] 0 11:22:51 914871 nitrofura ntoin medicatio n Not available Not available Not available 08/19/2020 7454 RxNorm CECI VERA [address], [place], [address], [place] [facility] 0 11:23:05 170812 Tamiflu medicatio n Not available Not available Not available 08/19/2020 36549 7 RxNorm CECI VERA [address], [place], [address], [place] [facility] 0 11:23:13 499843 memantine medicatio n Not available Not available Not available 08/19/2020 6719 RxNorm CECI VERA [address], [place], [address], [place] [facility] 0 [...] Former Smoker CECI VERA [address], [place], [address], [place] [facility] 08/19/2020 11:29:43 Do You Have An Advance Directive? Yes Information not available 08/19/2020 What Is Your Code Status? DNR Information not available 08/19/2020 Within The Past 12 Months, Has It Happened That The Food You Bought Just Didn't Last And You Didn't Have Money To Get More. No [email or web address].comki Information not available 08/19/2020 Within The Past 12 Months, Have You Worried That Your Food Would Run Out Before You Got Money To Buy More. No [employer] Information not available 08/19/2020 Fall Risk: Do You Feel Unsteady When Standing Or Walking? No badShiftgigki Information not available 08/19/2020 We Know That How And When People Interact With Friends And Family Can Be Very Different From Person To Person. How Often Do You Have The Opportunity To See Or Talk To People That You Care About And Feel Close To? (Ex: Talking To Friends On The Phone Or Visiting Friends Or Family Or Going To Latter Day Or Club Meetings) 5 Or More Times Per Week badShiftgigki Information not available 08/19/2020 Excessive Alcohol Or Drug Use No Flipxing.comki Information not available 08/19/2020 We Know From [...] ICD10 Code Diagnosis IMO Codes Diagnosis Note 121218 CECI VERA [facility] [address] [place] [address] 08/19/2020 11:12:55 08/19/2020 19:09:01 Lyme disease 57983827 A69.20 Health Concerns Section Related Observation LastModified by Organization Detai ls LastModified Time None Recorded Concern Status LastModified by Organization Details LastModified Time None Recorded Advance Directives Directive Y: Payers Insurance Date Sequence Insurance Name Policy Number Policy Cottrell Covered Member ID Cottrell Member ID Guarantor Name 08/19/2020 1 *SELF PAY* Lindsey José [id number] Lindsey José 08/19/2020 1 [place] Lindsey José [id number] Lindsey José 08/19/2020 2 [facility]PL[place]GRAM (POS) [id number] Lindsey José [id number] Lindsey José 08/19/2020 2 [facility]: ([place]MN[place]) Lindsey José [id number] Lindsey José Notes Date Note Type Note Provider Name and Address Organization Details Recorded Time 08/19/2020 text/html 74-year-old female with past medical history significant for asthma, COPD, depression, dementia, hyperlipidemia, hypertension, history of PE and TIA, aortic dissection status post repair and aortic valve replacement, PAF on coumadin, and osteoporosis, new to [facility], who presents with complaints of tick [...] this time. CECI VERA [address], [place], [address], [place] [facility] 08/19/2020 12:31:09 OBGyn Episode No OBEpisode recorded.
--- OUTSIDE RECORDS SUMMARY | 2025-07-12 11:58 | XMS_ITS | Encounter Summary ---
Author Organization [facility] Address [address] [place] [address] Phone Care Team Providers Care Database Development Project Manager Name Role Phone Harris Lennon MD Primary Care Provider [phone] Kory Vogt MD Unavailable Harris Lennon MD Unavailable [phone] Margarita Davidson RN Unavailable [email or web address] Jyoti Aviles OT Unavailable [phone] Encounter Details Date Type Department Care Team (Latest Contact Info) Description 08/08/2023 Transcribe Orders Virtual Department [address] [place], [place] [id number] Harris Lennon MD 22 [facility], [address] [place] [address] [email or web address] Breast screening (Primary Dx) Social [...] Description 04/08/2025 Procedure Pass Echo Lab [address] [place] [address] 07/30/2025 10:45 AM EST Office Visit [facility] [address] [place] [address] [place] [address] Harris Lennon MD [address] [place] [address], [address] [place] [address] 09/09/2025 11:15 AM EST Appointment Echo Lab [address] [place] [address] Stacie Gruber PA-C [address] [place] [address] 09/27/2025 10:40 AM EST Office Visit [facility] [address] [place] [address] 3rd Floor, [address] [place] [address] Davidson Gunter MD [address] [place] [address], [address] [place] [address] 02/14/2026 10:10 AM EDT Office Visit [facility] [address] [place] [address] [place] [address] Talon Seth DO [address] [place] [address] documented as of this encounter Results * [...] documented as of this encounter Care Teams Database Development Project Manager Relationship Specialty Start Date End Date Harris Lennon MD [address] [place] [address], [address] [place] [address] PCP - General Internal Medicine 01/16/21 Kory Vogt MD [address] [place] [address] Gastroenterology 10/07/21 Harris Lennon MD [address] [place] [address], [address] [place] [address] Insurance Assigned Provider 12/17/23 Margarita Davidson, RN [address] [place] [address], [address] [place] [address] [email or web address] PHCM Psychological ExaminerSupervisor [place] 07/01/22 02/17/25 Jyoti Aviles, OT [address] [place] [address] [email or web address] Transitions Psychological ExaminerDirector Recreation Therapy 12/12/2312/14/23 documented as of this encounter Additional Source Comments The information contained in this document represents components of the legal health record. It is not the complete legal health record.[facility]
--- OUTSIDE RECORDS SUMMARY | 2025-07-12 11:58 | XMS_ITS | Encounter Summary ---
Author Organization [facility] Address [address] [place] [address] Phone Care Team Providers Care Grounds Maintenance Manager Name Role Phone Xuan Ferraro DO Unavailable [phone] Harris Lennon MD Primary Care Provider [phone] Kory Vogt MD Unavailable Xuan Ferraro DO Unavailable [phone] Harris Lennon MD Unavailable [phone] Margarita Davidson RN Unavailable [email or web address] Margarita Davidson RN Unavailable [email or web address] Jyoti Aviles OT Unavailable [phone] Encounter Details Date Type Department Care Team (Late st Contact Info) Description 08/24/2021 Ancillary Orders [facility],Outside Imaging [address] [place], [place] [phone] System, Provider Not In, [facility] [address] [address] Social History Tobacco Use Types Packs/Day Years [...] Description 04/08/2025 Procedure Pass Echo Lab [address] [place] [address] 07/30/2025 10:45 AM EST Office Visit [facility] [address] [place] [address] [place] [address] Harris Lennon MD [address] [place] [address], [address] [place] [address] 09/09/2025 11:15 AM EST Appointment Echo Lab [address] [place] [address] Stacie Gruber PA-C [address] [place] [address] 09/27/2025 10:40 AM EST Office Visit [facility] [address] [place] [address] 3rd Floor, [address] [place] [address] Davidson Gunter MD [address] [place] [address], [address] [place] [address] 02/14/2026 10:10 AM EDT Office Visit [facility] [address] [place] [address] [place] [address] Talon Seth DO [address] [place] [address] documented as of this encounter Results * [...] documented as of this encounter Care Teams Grounds Maintenance Manager Relationship Specialty Start Date End Date Harris Lennon MD [address] [place] [address], [address] [place] [address] PCP - General Internal Medicine 01/16/21 Xuan Ferraro DO [address] [place] [address] [email or web address] Insurance Assigned Provider 06/09/19 10/06/21 Kory Vogt MD [address] [address] Gastroenterology 10/07/21 Xuan Ferraro DO [address] [place] [address] [email or web address] Insurance Assigned Provider 06/09/19 12/19/21 Harris Lennon MD [address] [place] [address], [address] [place] [address] [email or web address] Insurance Assigned Provider 12/17/23 Margarita Davidson RN 22 [facility], [address] [place] [address] [email or web address] PHCM Data Control Assistant 06/02/22 06/29/22 Margarita Davidson RN [address] [place] [address], [address] [place] [address] [email or web address] PHC Data Control AssistantSenior Clinical Sas Programmer 07/01/22 02/17/25 Jyoti Aviles, OT [address] [place] [address] [email or web address] Transitions Data Control AssistantFounding Partner Therapy 12/12/2312/14/23 documented as of this encounter Additional Source Comments The information contained in this document represents components of the legal health record. It is not the complete legal health record.[facility]
== END 2025-07-12 11:17 | disposition home or self-care (01) ==
LOC: HO.ACS 10:34
PROVIDERS: PCP Internal Medicine; Visit Provider Internal Medicine Medical Oncology
DX: Z79.01 Long term (current) use of anticoagulants (principal)

== ENCOUNTER → 2025-07-12 10:34 | Outpatient (BNVA) | payer MEDICARE, SELFPAY | PROVIDERS: PCP Internal Medicine; Visit Provider Internal Medicine Medical Oncology | DX: I48.0 Paroxysmal atrial fibrillation (principal); Z79.01 Long term (current) use of anticoagulants; Z51.81 Encounter for therapeutic drug level monitoring | CPT/HCPCS: 85610; 99211 ==

== ENCOUNTER 2025-07-26 10:58 | Outpatient (AMB) | payer MEDICARE, SELFPAY ==
[2025-07-26 11:13] LABS: Prothrombin Time Whole Bld POC 26.5 sec (11.1-13.5); ~PT, ~INR - Anti Coag Clinic 2.2 (0.9-1.1)
--- NOTE | 2025-07-26 11:22 | MHC.OFFVISCO ---
Intake Intake Visit Reasons: Anticoagulation Allergies memantine Allergy (Severe, Verified 07/26/25 11:08) RAGE nitrofurantoin Allergy (Intermediate, Verified 07/26/25 11:08) RASH oseltamivir (From Tamiflu) Allergy (Intermediate, Verified 07/26/25 11:08) RASH oxycodone (From PERCOCET) Allergy (Unknown, Verified 07/26/25 11:08) UNKNOWN Penicillins (PENICILLINS) Allergy (Unknown, Verified 07/26/25 11:08) UNKNOWN Sulfa (Sulfonamide Antibiotics) (SULFA (SULFONAMIDE ANTIBIOTICS)) Allergy (Unknown, Verified 07/26/25 11:08) UNKNOWN Medication List - Last Reconciled 07/26/25 by Criselda Marshall RN acetaminophen (Tylenol Extra Strength) 1,000 mg (2 x 500 mg) PO QID PRN albuterol sulfate 90 mcg/actuation 2 puffs inhalation Q4-6H PRN alendronate 70 mg PO QWEEK ascorbic acid (vitamin C) (Vitamin C) 500 mg PO TID azithromycin 500 mg PO ONCE PRN biotin 5,000 mcg PO DAILY calcium carbonate-vitamin D3 600 mg-12.5 mcg (500 unit) (Calcium with Vit D3) calcium 1200, vit d 25mcg cetirizine 10 mg PO DAILY PRN Held on 12/29/23. Instructions: Doctor's Order cholecalciferol (vitamin D3) 250 McG DAILY PO; clotrimazole-betamethasone 1-0.05 % 1 appl topical BID Held on 12/29/23. Instructions: Doctor's Order cranberry fruit concentrate (Azo Cranberry) PO BID docusate sodium 100 mg PO BID estradiol 0.01%(0.1mg/gram) grams vaginal 2XW ezetimibe 10 mg PO DAILY Held on 12/29/23. Instructions: Doctor's Order fluticasone propion-salmeterol 500-50 mcg/dose (Advair Diskus) 1 inh inhalation BID inhalational spacing device ([facility] spacer) As directed losartan 25 mg PO DAILY magnesium oxide 500 mg PO DAILY mecobalamin (vitamin B12) mcg PO DAILY methenamine hippurate 1 g PO BID metoprolol succinate ER 75 mg PO DAILY mirtazapine 7.5 mg PO BEDTIME hlvdfosi-dje-hrfk-FA-vit K-lut (Multivitamin Women 50 Plus) PO psyllium husk (Metamucil) 0.4 grams PO DAILY Saccharomyces boulardii (Daily Probiotic (S. boulardii)) PO simethicone (Gas Relief (simethicone)) PO topiramate 50 mg PO DAILY Held on 12/29/23. Instructions: Doctor's Order vibegron (Gemtesa) 75 mg PO DAILY warfarin See Protocol 7.5mg x2days/ 5mg x5days; Nursing Note INR: 2.2 in therapeutic range of 2-3 Medications and supplements reviewed No changes in health, diet, medications, or supplements, Denies any signs and symptoms of bleeding or bruising or clotting. Bleeding, bruising, clotting discussed Nutritional guidance given Dose: 2.5mg X 4 days and 5mg X 3 days (M/W/F) F/U INR: 2 weeks Patient verbalizes understanding of instructions given Coding Level of Care Code Est Patient Level 1 Diagnoses Current use of anticoagulant therapy Z79.01 Results AMB INR Fingerstick AMB INR Fingerstick 2.2 Last Edit by Criselda Marshall, RN on 07/26/25 11:14 interface delay Assessment & Plan Assessment & Plan (1) Current use of anticoagulant therapy: Code(s): Z79.01 - bed bug exterminator (current) use of anticoagulants Category: Medical
== END 2025-07-26 11:27 | disposition home or self-care (01) ==
LOC: HO.ACS 10:58
PROVIDERS: PCP Internal Medicine; Visit Provider Internal Medicine Medical Oncology
DX: Z79.01 Long term (current) use of anticoagulants (principal)

== ENCOUNTER → 2025-07-26 10:58 | Outpatient (BNVA) | payer MEDICARE, SELFPAY | PROVIDERS: PCP Internal Medicine; Visit Provider Internal Medicine Medical Oncology | DX: I48.0 Paroxysmal atrial fibrillation (principal); Z51.81 Encounter for therapeutic drug level monitoring; Z79.01 Long term (current) use of anticoagulants | CPT/HCPCS: 85610; 99211 ==

== ENCOUNTER 2025-08-06 13:14 | Outpatient (AMB) | payer MEDICARE, SELFPAY ==
--- OUTSIDE RECORDS SUMMARY | 2022-08-21 12:20 | XMS_ITS | Encounter Summary ---
Author Organization [facility] Address [address] [place] [address] Phone Care Team Providers Care Application Development Project Manager Name Role Phone Harris Lennon MD Primary Care Provider +1- [phone] Kory Vogt MD Unavailable Margarita Davidson RN Unavailable [email or web address] Encounter Details Date Type Department Care Team (Late st Contact Info) Description 08/21/2022 12:20 PM [facility] Hospital Encounter [facility] [address] [place] [address] [phone] Juliana Troy, [address], [facility] [address] [place] [address] [email or web address] Social History Tobacco Use Types Packs/Day Years [...] on file documented as of this encounter Functional Status * Calculated C-SSRS Risk Score (Lifetime/Recent) Answer Date of Assessment Author No Risk Indicated 06/16/2024 9:27 AM EDT Shilo Miller RN * [place] Suicide Severity Rating Scale (Screener/Recent Self-Report) Question Answer Date of Assessment Author 1. Wish to be (Past 1 Month) No 024 9:27 AM Shilo Francis RN 2. Non-Specific Active Suici reese Thoughts (Past 1 Month) No 06/16/2024 9:27 AM JERZYT Shilo Miller RN 6. Suicidal Behavior (Lifetime) No 9:27 AM Shilo Francis RN documented as of this encounter Plan of Treatment Upcoming Encounters Date Type Department Care Team (Late st Contact Info) Description 04/08/2025 Procedure Pass Echo Lab [place] [address] [place] [address] 09/09/2025 11:15 AM EST Appointment [facility] [place] [address] Stacie Gruber PA-C [address] [place] [address] 09/27/2025 10:40 AM EST Office Visit [facility] [address] [place] [address] 3rd Floor, [address] [place] [address] Davidson Gunter MD [address] [place] [address], [address] [place] [address] 01/30/2026 11:00 AM EDT Office Visit [facility] [address] [place] [address] Harris Lennon MD [address] [place] [address], [address] [place] [address] 02/14/2026 10:10 AM EDT Office Visit [facility] [address] [place] [address] [place] [address] Talon Seth DO [address] [place] [phone] documented as of this encounter Procedures Procedure [...] the report originally createdby Selena Franklin. Juliana Troy [facility] IMG XR CHEST Final Result documented in [...] as of this encounter Care Teams Application Development Project Manager Relationship Specialty Start Date End Date Harris Lennon MD [address] [place] [address], [address] [place] [address] [email or web address] PCP - General Internal Medicine 01/16/21 Kory Vogt MD [address] [place] [address] [email or web address] Gastroenterology 10/07/21 Margarita Davidson RN [address] [place] [phone] [email or web address] PHCM Internist Medical Doctor MdPatient Portal Representative 07/01/22 documented as of this encounter Additional Source Comments The information contained in this document represents components of the legal health record. It is not the complete legal health record.[facility]
[2025-08-06 13:25] LABS: Prothrombin Time Whole Bld POC 26.3 sec (11.1-13.5); ~PT, ~INR - Anti Coag Clinic 2.2 (0.9-1.1)
--- NOTE | 2025-08-06 13:28 | MHC.OFFVISCO ---
Intake Intake Visit Reasons: Anticoagulation Allergies memantine Allergy (Severe, Verified 08/06/25 13:18) RAGE nitrofurantoin Allergy (Intermediate, Verified 08/06/25 13:18) RASH oseltamivir (From Tamiflu) Allergy (Intermediate, Verified 08/06/25 13:18) RASH oxycodone (From PERCOCET) Allergy (Unknown, Verified 08/06/25 13:18) UNKNOWN Penicillins (PENICILLINS) Allergy (Unknown, Verified 08/06/25 13:18) UNKNOWN Sulfa (Sulfonamide Antibiotics) (SULFA (SULFONAMIDE ANTIBIOTICS)) Allergy (Unknown, Verified 08/06/25 13:18) UNKNOWN Medication List - Last Reconciled 08/06/25 by Aby Schuler RN acetaminophen (Tylenol Extra Strength) 1,000 mg (2 x 500 mg) PO QID PRN albuterol sulfate 90 mcg/actuation 2 puffs inhalation Q4-6H PRN alendronate 70 mg PO QWEEK ascorbic acid (vitamin C) (Vitamin C) 500 mg PO TID atorvastatin 40 mg PO DAILY azithromycin 500 mg PO ONCE PRN biotin 5,000 mcg PO DAILY calcium carbonate-vitamin D3 600 mg-12.5 mcg (500 unit) (Calcium with Vit D3) calcium 1200, vit d 25mcg cetirizine 10 mg PO DAILY PRN Held on 12/29/23. Instructions: Doctor's Order cholecalciferol (vitamin D3) 250 McG DAILY PO; clotrimazole-betamethasone 1-0.05 % 1 appl topical BID Held on 12/29/23. Instructions: Doctor's Order cranberry fruit concentrate (Azo Cranberry) PO BID docusate sodium 100 mg PO BID estradiol 0.01%(0.1mg/gram) grams vaginal 2XW ezetimibe 10 mg PO DAILY Held on 12/29/23. Instructions: Doctor's Order fluticasone propion-salmeterol 500-50 mcg/dose (Advair Diskus) 1 inh inhalation BID inhalational spacing device ([facility] spacer) As directed losartan 25 mg PO DAILY magnesium oxide 500 mg PO DAILY mecobalamin (vitamin B12) mcg PO DAILY methenamine hippurate 1 g PO BID metoprolol succinate ER 75 mg PO DAILY mirtazapine 7.5 mg PO BEDTIME nauzwfxj-dcp-kjeg-FA-vit K-lut (Multivitamin Women 50 Plus) PO psyllium husk (Metamucil) 0.4 grams PO DAILY Saccharomyces boulardii (Daily Probiotic (S. boulardii)) PO simethicone (Gas Relief (simethicone)) PO topiramate 50 mg PO DAILY Held on 12/29/23. Instructions: Doctor's Order vibegron (Gemtesa) 75 mg PO DAILY warfarin See Protocol 7.5mg x2days/ 5mg x5days; Nursing Note INR: 2.2 in therapeutic range Medications and supplements reviewed No changes in health, diet, medications, or supplements, Denies any signs and symptoms of bleeding or bruising or clotting. Bleeding, bruising, clotting discussed Nutritional guidance given Dose: 5MG MWF/ 2.5MG X 4 DAYS F/U INR: 2 WEEKS Patient verbalizes understanding of instructions given Coding Level of Care Code Est Patient Level 1 Diagnoses Current use of anticoagulant therapy Z79.01 Results AMB INR Fingerstick AMB INR Fingerstick 2.2 Last Edit by Aby Schuler RN on 08/06/25 13:27 MANUAL ENTRY Assessment & Plan Assessment & Plan (1) Current use of anticoagulant therapy: Code(s): Z79.01 - retirement (current) use of anticoagulants Category: Medical
--- OUTSIDE RECORDS SUMMARY | 2025-08-06 17:00 | XMS_ITS | Encounter Summary ---
Author Organization [facility] Address [address] [place] [address] Phone Care Team Providers Care Cigar Head Perforator Name Role Phone Xuan Ferraro DO Primary Care Provider Xuan Ferraro DO Unavailable Harris Lennon MD Primary Care Provider Kory Vogt MD Unavailable Xuan Ferraro DO Unavailable Harris Lennon MD Unavailable [phone] Margarita Davidson RN Unavailable [email or web address] Margarita Davidson RN Unavailable [email or web address] Jyoti Aviles OT Unavailable [phone] Encounter Details Date Type Department Care Team (Late st Contact Info) Description 11/08/2019 Ancillary Orders Non-Invasive Cardiology [address] [place] [address] Xuan Ferraro DO [address] [place] [address] [email or web address] Other chest pain Social History Tobacco Use [...] Description 04/08/2025 Procedure Pass [facility] [address] [place] [address] 09/09/2025 11:15 AM EST Appointment Echo Lab [address] [place] [address] Stacie Gruber PA-C [address] [place] [address] 09/27/2025 10:40 AM EST Office Visit [facility] [address] [place] [address] 3rd Floor, [address] [place] [address] Davidson Gunter MD [address] [place] [address], [address] [place] [address] 01/30/2026 11:00 AM EDT Office Visit [facility] Medicine [address] [place] [address] [place] [address] Harris Lennon MD [address] [place] [address], [address] [place] [address] 02/14/2026 10:10 AM EDT Office Visit [facility] [address] [place] [address] [place] [address] Talon Seth DO [address] [place] [address] documented as of this encounter Results * NC Stress Result for Nuclear Stress Test (11/08/2019 10:14 AM EST) Max BP Systolic 158 mmHg [facility] Max BP Diastolic 70 mmHg [facility] Max HR 123 BPM [facility] Resting HR 78 BPM [facility] Resting BP Systolic 150 mmHg [facility] Resting BP Diastolic 72 mmHg [facility] Peak METS 2.3 METS [facility] Peak HR 118 BPM [facility] Peak BP Systolic 136 mmHg [facility] Peak BP Diastolic 76 mmHg [facility] Anatomical Region Laterality Modality Heart Other 11/08/2019 9:3 5 AM EST 11/08/2019 10:13 AM EST Narrative [...] predicted heart rate. Rate pressure product was [address]1990. REPORT: Patient exercised for 4:00 minutes on [...] documented as of this encounter Care Teams Cigar Head Perforator Relationship Specialty Start Date End Date Xuan Ferraro DO [address] [place] [address] [email or web address] PCP - General 09/15/18 01/15/21 Harris Lennon MD [address] [place], [place] [id number] [place] [address] [email or web address] PCP - General Internal Medicine 01/16/21 Xuan Ferraro DO [address] [place] [address] [email or web address] Insurance Assigned Provider 06/09/19 10/06/21 Kory Vogt MD [address] [place] [address] [email or web address] Gastroenterology 10/07/21 Xuan Ferraro DO [address] [place] [address] [email or web address] Insurance Assigned Provider 06/09/19 12/19/21 Harris Lennon MD [address] [place], [place] [id number] [place] [address] [email or web address] Insurance Assigned Provider 12/17/23 Margarita Davidson RN [address] [place] [address], [address] [place] [address] [email or web address] PHCM Gas Check Pad Maker 06/02/22 06/29/22 Margarita Davidson RN [address] [place] [address], [address] [place] [address] [email or web address] PHC Gas Check Pad MakerChief Customer Officer 07/01/22 02/17/25 Jyoti Aviles, OT [address] [place] [address] [email or web address] Transitions Gas Check Pad MakerCollating Machine Operator Therapy 12/12/2312/14/23 documented as of this encounter Additional Source Comments The information contained in this document represents components of the legal health record. It is not the complete legal health record.[facility]
--- OUTSIDE RECORDS SUMMARY | 2025-08-06 17:00 | XMS_ITS | Encounter Summary ---
Author Organization [facility] Address [address] [place] [address] Phone Care Team Providers Care Copper Etcher Name Role Phone Xuan Ferraro DO Primary Care Provider + [phone] Xuan Ferraro DO Unavailable [phone] Harris Lennon MD Primary Care Provider + [phone] Kory Vogt MD Unavailable Xuan Ferraro DO Unavailable [phone] Harris Lennon MD Unavailable [phone] Margarita Davidson RN Unavailable [email or web address] Margarita Davidson RN Unavailable [email or web address] Jyoti Aviles OT Unavailable [phone] Encounter Details Date Type Department Care Team (Late st Contact Info) Description 09/07/2019 Procedure Pass [facility] Admitting Dept Virtual Department [address] [place] [address] Social History Tobacco Use Types Packs/Day Years [...] Description 04/08/2025 Procedure Pass Echo [facility] [address] [place] [address] 09/09/2025 11:15 AM EST Appointment Echo Lab [address] [place] [address] Stacie Gruber PA-C [address] [place] [address] 09/27/2025 10:40 AM EST Office Visit [facility] [address] [place] [address] 3rd Floor, [address] [place] [address] Davidson Gunter MD [address] [place] [address], [address] [address] 01/30/2026 11:00 AM EDT Office Visit [facility] [address] [place] [address] [place] [address] Harris Lennon MD [address] [place] [address], [address] [place] [address] 02/14/2026 10:10 AM EDT Office Visit [facility] [address] [place] [address] [place] [address] Talon Seth DO [address] [place] [address] documented as of this encounter Visit Diagnoses [...] documented as of this encounter Care Teams Copper Etcher Relationship Specialty Start Date End Date Xuan Ferraro DO [address] [place] [address] [email or web address] PCP - General 09/15/18 01/15/21 Harris Lennon MD [address] [place] [address], [address] [place] [address] [email or web address] PCP - General Internal Medicine 01/16/21 Xuan Ferraro DO [address] [place] [address] [email or web address] Insurance Assigned Provider 06/09/19 10/06/21 Kory Vogt MD [address] [place] [address] [email or web address] Gastroenterology 10/07/21 Xuan Ferraro DO [address] [place] [address] [email or web address] Insurance Assigned Provider 06/09/19 12/19/21 Harris Lennon MD [address] [place] [address], [address] [place] [address] [email or web address] Insurance Assigned Provider 12/17/23 Margarita Davidson RN [address] [place] [address], [address] [place] [address] [email or web address] PHCM Linen Keeper 06/02/22 06/29/22 Margarita Davidson, RN [address] [facility], [address] [place] [address] [email or web address] PHC Linen KeeperDiamond Wheel Molder 07/01/22 02/17/25 Jyoti Aviles, OT [address] [place] [address] [email or web address] Transitions Linen KeeperHeddler Therapy 12/12/2312/14/23 documented as of this encounter Additional Source Comments The information contained in this document represents components of the legal health record. It is not the complete legal health record.[facility]
--- OUTSIDE RECORDS SUMMARY | 2025-08-06 17:00 | XMS_ITS | Encounter Summary ---
Author Organization [facility] Address [address] [place] [address] Phone Care Team Providers Care Surface Logging Systems Logger Name Role Phone Harris Lennon MD Primary Care Provider [phone] Kory Vogt MD Unavailable Harris Lennon MD Unavailable [phone] Margarita Davidson RN Unavailable [email or web address] Jyoti Aviles OT Unavailable [phone] Encounter Details Date Type Department Care Team (Late st Contact Info) Description 08/02/2022 Procedure Pass [address] [address] Social History Tobacco Use Types Packs/Day Years [...] Info) Description 04/08/2025 Procedure Pass [facility] [address] [place] [address] 09/09/2025 11:15 AM EST Appointment Echo Lab [address] [place] [address] Stacie Gruber PA-C [address] [place] [address] 09/27/2025 10:40 AM EST Office Visit [facility] [address] [place] [address] [address]rd Floor, [address] [place] [address] Davidson Gunter MD [address] [place] [address], [address] [place] [address] 01/30/2026 11:00 AM EDT Office Visit [address] [place] [address] Harris Lennon MD [address] [place] [address], [address] [place] [address] 02/14/2026 10:10 AM EDT Office Visit [facility] [address] [place] [address] [place] [address] Talon Seth DO [address] [place] [address] documented as of this encounter Visit Diagnoses [...] as of this encounter Care Teams Surface Logging Systems Logger Relationship Specialty Start Date End Date Harris Lennon MD [address] [place] [address], [address] [place] [address] PCP - General Internal Medicine 01/16/21 Kory Vogt MD [address] [place] [address] Gastroenterology 10/07/21 Harris Lennon MD [address] [place] [address], [address] [place] [address] Insurance Assigned Provider 12/17/23 Margarita Davidson RN [address] [facility], [address] [place] [address] [email or web address] Motor Room ControllerDredge Mechanic 07/01/22 02/17/25 Jyoti Aviles, OT [address] [place] [address] [email or web address] Transitions Motor Room ControllerPaster Hat Lining Therapy 12/12/2312/14/23 documented as of this encounter Additional Source Comments The information contained in this document represents components of the legal health record. It is not the complete legal health record.[facility]
--- OUTSIDE RECORDS SUMMARY | 2025-08-06 17:00 | XMS_ITS | Encounter Summary ---
Author Organization [facility] Address [address] [facility] [address] [place] [address] Phone Care Team Providers Care Gas Station Cashier Name Role Phone Damien Lance MD Primary Care Provide r Xuan Ferraro DO Primary Care Provider + [phone] Damien Lance MD Unavailable [phone] Xuan Ferraro DO Unavailable [phone] Harris Lennon MD Primary Care Provider + [phone] Kory Vogt MD Unavailable Xuan Ferraro DO Unavailable [phone] Harris Lennon MD Unavailable [phone] Margarita Davidson RN Unavailable [email or web address] Margarita Davidson RN Unavailable [email or web address] Jyoti Aviles OT Unavailable [phone] Encounter Details Date Type Department Care Team (Latest Contact Info) Description 02/13/2018 Transcribe Orders [facility] [address] [id number] Javier Chauhan MD [address] [id number] [email or web address] Gastroesophageal reflux disease without esophagitis (Primary [...] Description 04/08/2025 Procedure Pass Echo Lab [address] [place] [address] 09/09/2025 11:15 AM EST Appointment Echo Lab [address] [place] [address] Stacie Gruber PA-C [address] [place] [address] 09/27/2025 10:40 AM EST Office Visit [facility] [address] [place] [address] [address]rd Floor, [address] [place] [address] Davidson Gunter MD [address] [place] [address], [address] [place] [address] 01/30/2026 11:00 AM EDT Office Visit [facility] [place] [place] [facility] [address] [place] [address] [place] [address] Harris Lennon MD [address] [place] [address], [address] [place] [address] 02/14/2026 10:10 AM EDT Office Visit [facility] [address] [place] [address] [place] [address] Talon Seth DO [address] [place] [address] [email or web address] documented as of this encounter Results * (ABNORMAL) C-Reactive Protein (02/13/2018 2:31 PM EDT) C REACTIVE PROTEIN 6.4(H) 0.0 - 4.0 mg/L [facility] Comment:New Reference Range and Measuring Units effective 01/25/18. Blood 02/13/2018 2:31 PM EDT 02/13/2018 2:36 PM EDT us Javier Chauhan MD LAB BLOOD BKR ORDERABLES Fin al Result [facility] [address] [place] [address] * (ABNORMAL) Comprehensive metabolic panel (02/13/2018 2:31 PM EDT) SODIUM 133 133 - 146 mmol/L [facility] POTASSIUM 5.6(H) 3.3 - 5.1 mmol/L [facility] CHLORIDE 94(L) 96 - 108 mmol/L [facility] CO2 27 21 - 35 mmol/L [facility] BUN 14 6 - 19 mg/dL [facility] CREATININE 0.60 0.5 - 1.5 mg/dL [facility] GLUCOSE 108(H) 70 - 99 mg/dL [facility] ALBUMIN 4.2 3.9 - 4.8 g/dL [facility] TOTAL PROTEIN 6.6 6.5 - 8.0 g/dL [facility] CALCIUM 9.3 8.4 - 10.3 mg/dL [facility] ALKALINE PHOSPHATASE 43 39 - 117 U/L [facility] TOTAL BILIRUBIN 0.2 0.0 - 1.2 mg/dL [facility] AST 20 0 - 37 U/L [facility] ALT 14 0 - 40 U/L [facility] GLOBULIN 2.4 1 - 4.8 g/dL [facility] EGFR 90 >59 mL/min/1.7 3m2 [facility] Comment:If patient is black, multiply result by 1.159. The eGFR calculation has changed from the MDRD equation to the CKD-EPI equation as of November 15, 2017. ANION GAP 18 10 - 20 mmol/L [facility] Blood 02/13/2018 2:31 PM EDT 02/13/2018 2:36 PM EDT us Javier Chauhan MD LAB BLOOD BKR ORDERABLES Fin al Result [address] [address] * Tissue transglutaminase IgA (02/13/2018 2:31 PM EDT) TTG IGA ANTIBODY <1.2 <4.0 (Negative) U/mL [facility] DPT OF LAB MED AND PAT+ Blood 02/13/2018 2:31 PM EDT 02/13/2018 2:37 PM EDT us Javier Chauhan MD LAB BLOOD BKR ORDERABLES Fin al Result Performing Organization Address City/[facility] Co de Phone Number [facility] DPT OF LAB MED AND PAT+ [address] [place] [address] * Immunoglobulin A (02/13/2018 2:31 PM EDT) IgA 70 70 - 400 mg/dL [facility] Blood 02/13/2018 2:31 PM EDT 02/13/2018 2:36 PM EDT Javier Chauhan MD LAB BLOOD BKR ORDERABLES Fin al Result Performing Organization Address City/[facility]/ZIP Co de Phone Number [address] [address] * Gliadin deamidated antibody, IgG/IgA (02/13/2018 2:31 PM EDT) Gliadin Ab, IGA <10.0 <20.0 (Negative) U [facility] DPT OF LAB MED AND PAT+ GLIADIN AB IGG <10.0 <20.0 (Negative) U [facility] DPT OF LAB MED AND PAT+ Blood 02/13/2018 2:31 PM EDT 02/13/2018 2:37 PM EDT us Javier Chauhan MD LAB BLOOD ORDERABLES Final R esult [facility] DPT OF LAB MED AND PAT+ [address] [place] [address] * (ABNORMAL) CBC and differential (02/13/2018 2:31 PM EDT) WBC 8.84 3.40 - 11.20 K/uL [facility] RBC 4.07 3.80 - 4.80 M/uL [facility] HGB 12.3 12.0 - 15.0 g/dL [facility] HCT 38.2 36.0 - 46.0 % [facility] PLT 333 130 - 400 K/uL [facility] MCV 93.9 79.0 - 98.0 fL [facility] MCH 30.2 27.0 - 34.8 pg [facility] MCHC 32.2 31.5 - 36.0 g/dL [facility] RDW 14.4 10.8 - 14.6 % [facility] MPV 9.8 9.4 - 12.4 fl [facility] NRBC 0.00 /100 WBCs [facility] ABSOLUTE NRBC 0.00 K/uL [facility] DIFF METHOD Auto [facility] NEUTS 79.6(H) 45.30 - 77.70 % [facility] LYMPHS 12.6 12.30 - 39.70 % [facility] MONOS 6.2 4.10 - 12.80 % [facility] EOS 0.8 0 - 7.2 % [facility] BASOS 0.3 0 - 2.80 % [facility] Granulocytes, immature (%) 0.5 0.0 - 0.9 % [facility] ABSOLUTE NEUTS 7.04 1.40 - 7.70 K/uL [facility] ABSOLUTE LYMPHS 1.11 0.60 - 3.20 K/uL [facility] ABSOLUTE MONOS 0.55 0.11 - 0.59 K/uL [facility] ABSOLUTE EOS 0.07 0.01 - 0.50 K/uL [facility] ABSOLUTE BASOS 0.03 0.00 - 0.08 K/uL [facility] Granulocytes, immature 0.04 0.00 - 0.05 K/uL [facility] Blood 02/13/2018 2:31 PM EDT 02/13/2018 2:36 PM EDT us Javier Chauhan MD LAB BLOOD BKR ORDERABLES Fin al Result [facility] [address] [place] [address] documented in this encounter Visit Diagnoses Diagnosis [...] documented as of this encounter Care Teams Gas Station Cashier Relationship Specialty Start Date End Date Damien Lance MD [email or web address] PCP - General Internal Medicine 07/18/17 09/14/18 Xuan Ferraro DO [address] [place] [address] [email or web address] PCP - General 09/15/18 01/15/21 Harris Lennon MD [address] [place] [address], [address] [place] [address] [email or web address] PCP - General Internal Medicine 01/16/21 Damien Lance MD [address] [place] [address] Floor 1 [place] [address] [email or web address] Insurance Assigned Provider 07/16/17 06/09/19 Xuan Ferraro DO [address] [place] [address] [email or web address] Insurance Assigned Provider 06/09/19 10/06/21 Kory Vogt MD [address] [place] [address] [email or web address] Gastroenterology 10/07/21 Xuan Ferraro DO [address] [place] [address] [email or web address] Insurance Assigned Provider 06/09/19 12/19/21 Harris Lennon MD [address] [place] [address], [address] [place] [address] [email or web address] Insurance Assigned Provider 12/17/23 Margarita Davidson RN [address] [place] [address], [address] [place] [address] [email or web address] PHCM Dewatering Filtering Supervisor 06/02/22 06/29/22 Margarita Davidson RN [address] [place] [address], [address] [place] [address] [email or web address] PHCM Dewatering Filtering SupervisorChief Radiologic Technologist 07/01/22 02/17/25 Jyoti Aviles, OT [address] [place] [address] [email or web address] Transitions Dewatering Filtering SupervisorInspector Repairer Therapy 12/12/2312/14/23 documented as of this encounter Additional Source Comments The information contained in this document represents components of the legal health record. It is not the complete legal health record.[facility]
--- OUTSIDE RECORDS SUMMARY | 2025-08-06 17:00 | XMS_ITS | Encounter Summary ---
Author Organization [facility] Address [address] [place] [address] Phone Care Team Providers Care Tower Air Traffic Control Specialist Name Role Phone Xuan Ferraro DO Primary Care Provider + [phone] Damien Lance MD Unavailable Xuan Ferraro DO Unavailable [phone] Harris Lennon MD Primary Care Provider + [phone] Kory Vogt MD Unavailable Xuan Ferraro DO Unavailable [phone] Harris Lennon MD Unavailable [phone] Margarita Davidson RN Unavailable [email or web address] Margarita Davidson RN Unavailable [email or web address] Jyoti Aviles OT Unavailable [phone] Encounter Details Date Type Department Care Team (Late st Contact Info) Description 11/29/2018 Procedure Pass [facility], [address] [address] Social History Tobacco Use Types Packs/Day Years [...] Description 04/08/2025 Procedure Pass [facility] [address] [place] [address] 09/09/2025 11:15 AM EST Appointment Echo Lab [address] [place] [address] Stacie Gruber PA-C [address] [place] [address] 09/27/2025 10:40 AM EST Office Visit [facility] [address] [place] [address] [address]rd Floor, [address] [place] [address] Davidson Gunter MD [address] [place] [address], [address] [place] [address] 01/30/2026 11:00 AM EDT Office Visit [facility] [place] [facility] [address] [place] [address] [place] [address] Harris Lennon MD [address] [place] [address], [address] [place] [address] 02/14/2026 10:10 AM EDT Office Visit [facility] [address] [place] [address] Talon Seth DO [address] [place] [address] [email or web address] documented as of this encounter Visit Diagnoses [...] documented as of this encounter Care Teams Tower Air Traffic Control Specialist Relationship Specialty Start Date End Date Xuan Ferraro DO [address] [place] [address] [email or web address] PCP - General 09/15/18 01/15/21 Harris Lennon MD [address] [facility], [address] [place] [address] [email or web address] PCP - General Internal Medicine 01/16/21 Damien Lance MD [address] [facility] Floor 1 [place] [address] [email or web address] Insurance Assigned Provider 07/16/17 06/09/19 Xuan Ferraro DO [address] [place] [address] [email or web address] Insurance Assigned Provider 06/09/19 10/06/21 Kory Vogt MD [address] [place] [address] Gastroenterology 10/07/21 Xuan Ferraro DO [address] [place] [address] [email or web address] Insurance Assigned Provider 06/09/19 12/19/21 Harris Lennon MD [address] [place] [address], [address] [place] [address] [email or web address] Insurance Assigned Provider 12/17/23 Margarita Davidson RN [address] [place] [address], [address] [place] [address] [email or web address] PHCM Assistant Unit Forester 06/02/22 06/29/22 Margarita Davidson RN [address] [place] [address], [address] [place] [address] [email or web address] PHCM Assistant Unit ForesterApplication Support Engineer 07/01/22 02/17/25 Jyoti Aviles, OT [address] [place] [address] [email or web address] Transitions Assistant Unit ForesterOutdoor Education Teacher Therapy 12/12/2312/14/23 documented as of this encounter Additional Source Comments The information contained in this document represents components of the legal health record. It is not the complete legal health record.[facility]
--- OUTSIDE RECORDS SUMMARY | 2025-08-06 17:00 | XMS_ITS | Encounter Summary ---
Author Organization [facility] Address [address] [facility] [employer] [address] [place] [address] Phone Care Team Providers Care Shoulder Pad Molder Name Role Phone Xuan Ferraro DO Primary Care Provider + [phone] Damien Lance MD Unavailable Xuan Ferraro DO Unavailable [phone] Harris Lennon MD Primary Care Provider + [phone] Kory Vogt MD Unavailable Xuan Ferraro DO Unavailable [phone] Harris Lennon MD Unavailable [phone] Margarita Davidson RN Unavailable [email or web address] Margarita Davidson RN Unavailable [email or web address] Jyoti Aviles OT Unavailable [phone] Encounter Details Date Type Department Care Team (Late st Contact Info) Description 02/13/2019 Ancillary Orders [facility] [address] [place] [address] Xuan Ferraro DO [address] [place] [address] [email or web address] Breast [email or web address] Social History Tobacco Use [...] Description 04/08/2025 Procedure Pass Echo Lab [address] [place] [address] 09/09/2025 11:15 AM EST Appointment Echo Lab [address] [place] [address] Stacie Gruber PA-C [address] [place] [address] 09/27/2025 10:40 AM EST Office Visit [facility] [address] [place] [address] 3rd Floor, [address] [place] [address] Davidson Gunter MD [address] [place] [address], [address] [place] [address] 01/30/2026 11:00 AM EDT Office Visit [facility] [place] [facility] [address] [place] [address] [place] [address] Harris Lennon MD [address] [place] [address], [address] [place] [address] 02/14/2026 10:10 AM EDT Office Visit [facility] [address] [place] [address] [place] [address] Talon Seth DO [address] [place] [address] documented as of this encounter Results * [...] There are scattered fibroglandular densities. POS - [id number] Narrative 05/15/2019 1:58 PM EDT Full-field digital [...] There are scattered fibroglandular densities. POS - [id number] us Xuan Ferraro DO IMG MG EXAMS [...] documented as of this encounter Care Teams Shoulder Pad Molder Relationship Specialty Start Date End Date Xuan Ferraro DO [address] [place] [id number] [email or web address] PCP - General 09/15/18 01/15/21 Harris Lennon MD [address] [facility], [address] [place] [address] [email or web address] PCP - General Internal Medicine 01/16/21 Damien Lance MD [address] [facility] Floor 1 [place] [address] [email or web address] Insurance Assigned Provider 07/16/17 06/09/19 Xuan Ferraro DO [address] [place] [email or web address] Insurance Assigned Provider 06/09/19 10/06/21 Kory Vogt MD [address] [place] [address] [email or web address] Gastroenterology 10/07/21 Xuan Ferraro DO [address] [place] [address] [email or web address] Insurance Assigned Provider 06/09/19 12/19/21 Harris Lennon MD [address] [place] [address], [address] [place] [address] [email or web address] Insurance Assigned Provider 12/17/23 Margarita Davidson RN [address] [place] [address], [address] [place] [address] [email or web address] PHCM Dietary Director 06/02/22 06/29/22 Margarita Davidson RN [address] [place] [address], [address] [place] [address] [email or web address] PHC Dietary DirectorDamper Fitter 07/01/22 02/17/25 Jyoti Aviles, OT [address] [place] [address] [email or web address] Transitions Dietary DirectorThird Cook Therapy 12/12/2312/14/23 documented as of this encounter Additional Source Comments The information contained in this document represents components of the legal health record. It is not the complete legal health record.[facility]
--- OUTSIDE RECORDS SUMMARY | 2025-08-06 17:01 | XMS_ITS | Encounter Summary ---
Author Organization [facility] Address [address] [place] [address] Phone Care Team Providers Care Corporate Director Talent Assessment Name Role Phone Zeina BurnsSW Unavailable Unavailab Damien Foley MD Unavailable [phone] Gabriel Fay MD Unavailable [email or web address] Darryl Hooks MD Unavailable Yury Eugene BILINGUAL RECEPTIONIST Unavailable Merle Morrell MD Unavailable Christiano Alfaro MD Unavailable [phone] Kanchan Chow BILINGUAL RECEPTIONIST Unavailable [phone] Allen Quevedo MD Unavailable Sheng Hermosillo MD Unavailable [phone] Talon Beaulieu MD Unavailable [phone] Cece Perez MD Unavailable Allen Oleary MD Unavailable Tea Lamb MD Unavailable Tatianna Killian CNP Unavailable Sheng Saldivar MD Unavailable Evan Hi MD Unavailable [phone] Damien Lance MD Unavailable [phone] Damien Lance MD Primary Care Provide r Xuan Ferraro DO Primary Care Provider [phone] Damien Lance MD Unavailable [phone] Xuan Ferraro DO Unavailable [phone] Harris Lennon MD Primary Care Provider [phone] Kory Vogt MD Unavailable Xuan Ferraro DO Unavailable +[phone] Harris Lennon MD Unavailable + Margarita Davidson RN Unavailable [email or web address] Margarita Davidson RN Unavailable [email or web address] OT Unavailable [phone] Encounter Details Date Type Department Care Team (Late st Contact Info) Description 09/07/2017 Procedure Pass [facility] Endoscopy Admitting Dept Virtual Department [address] [place] [address] Social History Tobacco Use Types Packs/Day Years [...] Description 04/08/2025 Procedure Pass Echo Lab [address] [place] [address] 09/09/2025 11:15 AM EST Appointment Echo Lab [address] [place] [address] Stacie Gruber, PACony [address] [place] [address] 09/27/2025 10:40 AM EST Office Visit [facility] [address] [place] [address] Dr 3rd Floor, [address] [place] [address] Davidson Gunter MD [address] [place] [address], [address] [place] [address] 01/30/2026 11:00 AM EDT Office Visit [address] [address] Harris Lennon MD [address] [place] [address], [address] [place] [address] 02/14/2026 10:10 AM EDT Office Visit [facility] [address] [place] [address] [place] [address] Talon Seth DO [address] [place] [address] documented as of this encounter Visit Diagnoses [...] documented as of this encounter Care Teams Corporate Director Talent Assessment Relationship Specialty Start Date End Date Damien Lance MD [address] [address] [email or web address] PCP - General Internal Medicine 07/18/17 09/14/18 Xuan Ferraro DO [address] [place] [address] [email or web address] PCP - General 09/15/18 01/15/21 Harris Lennon MD [address] [place] [address], [address] [place] [address] [email or web address] PCP - General Internal Medicine 01/16/21 Zeina Burns [facility] Historical LMR Provider 07/03/17 09/21/17 Damien Lance MD 22 [facility] 1 [place] [address] [email or web address] Historical LMR Provider 07/03/17 09/21/17 Gabriel Fay MD [email or web address] Historical LMR Provider 07/03/17 09/21/17 Darryl Hooks MD [address] [place] [address], [address] [place] [address] [email or web address] Historical LMR Provider 07/03/17 Yury Hawley NP [address] [place] [address] 2_[place] [address] [email or web address] Historical LMR Provider 07/03/17 09/21/17 Merle Morrell MD 15 [facility], 2nd [place] [address] [email or web address] Historical LMR Provider 07/03/1709/21 Christiano Alfaro MD [address] [place] [address], [address] [place] [address] [email or web address] Historical LMR Provider 07/03/17 09/21/17 Kanchan Chow, NIKO [address] [place] [address] [place] [address] Historical LMR Provider 07/03/1709/21 Allen Quevedo MD [address] [place] [address] [address] [place] [address] [email or web address] Historical LMR Provider 07/03/17 09/21/17 Sheng Hermosillo MD [address] [place] [address], [address] [place] [address] [email or web address] Historical LMR Provider 07/03/17 09/21/17 Talon Beaulieu MD [address] [place] [address], [address] [place] [address] [email or web address] Historical LMR Provider 07/03/17 Cece Perez MD [address] [place] [address] Orthoped[facility] Medicine, [place] [address] [email or web address] Historical LMR Provider 07/03/17 09/21/17 lAlen Oleary MD [address] [place] [address] Historical LMR Provider 07/03/1709/21 Tea Lamb MD [address] [place] [address] [email or web address] Historical LMR Provider 07/03/17 09/21/17 Tatianna Killian CNP 22 [facility], [address] [place] [address] [email or web address] Historical LMR Provider 07/03/1709/21 Sheng Saldivar MD [address] [place] [address] [email or web address] Historical LMR Provider 07/03/17 8 Evan Hi MD 10 [facility] 1 [place] [address] [email or web address] Historical LMR Provider 07/03/17 09/21/17 Damien Lance MD 22 [facility] 1 [place] [address] [email or web address] Upon a Timereyn[email or web address] Insurance Assigned Provider 07/16/17 09/21/17 Damien Lance MD 22 [facility] 1 [place] [address] [email or web address] Upon a Timereyn[email or web address] Insurance Assigned Provider 07/16/17 06/09/19 Xuan Ferraro DO [address] [place] [address] [email or web address] Upon a [email or web address] Insurance Assigned Provider 06/09/19 10/06/21 Kory Vogt MD 10 [facility] 2 [place] [address] [email or web address] Gastroenterology 10/07/21 Xuan Ferraro DO [address] [place] [address] [email or web address] Insurance Assigned Provider 06/09/19 12/19/21 Harris Lennon MD [address] [place] [address], [address] [place] [address] [email or web address] Insurance Assigned Provider 12/17/23 Margarita Davidson RN [address] [place] [address], [address] [place] [address] [email or web address] PHCM Pacs Specialist 06/02/22 06/29/22 Margarita Davidson RN [address] [place] [address], [address] [place] [address] [email or web address] Upon a Timeleonard [email or web address] .[email or web address] PHC Pacs SpecialistTax Revenue Officer 07/01/22 02/17/25 Jyoti Aviles, OT [address] [place] [address] [email or web address] Transitions Pacs SpecialistGrinder Outside Diameter Therapy 12/12/23 12/14/23 documented as of this encounter Additional Source Comments The information contained in this document represents components of the legal health record. It is not the complete legal health record.[facility]
--- OUTSIDE RECORDS SUMMARY | 2025-08-06 17:01 | XMS_ITS | Encounter Summary ---
Author Organization [facility] Address [address] [place] [address] Phone Care Team Providers Care Chronic Care Nurse Name Role Phone Harris Lennon MD Primary Care Provider [phone] Kory Vogt MD Unavailable Harris Lennon MD Unavailable [phone] Margarita Davidson RN Unavailable [email or web address] Margarita Davidson RN Unavailable [email or web address] Jyoti Aviles OT Unavailable [phone] Encounter Details Date Type Department Care Team (Late st Contact Info) Description 12/23/2021 Procedure Pass Echo Lab [address] [place] [address] Social History Tobacco Use Types Packs/Day Years [...] Info) Description 04/08/2025 Procedure Pass Echo Lab [address] [place] [address] 09/09/2025 11:15 AM EST Appointment Echo Lab [address] [place] [address] Stacie Gruber PA-C [address] [place] [address] 09/27/2025 10:40 AM EST Office Visit [facility] [address] [place] [address] 3rd Floor, [address] [place] [address] Davidson Gunter MD [address] [place] [address], [address] [address] 01/30/2026 11:00 AM EDT Office Visit [facility] [address] [place] [address] [place] [address] Harris Lennon MD [address] [place] [address], [address] [place] [address] 02/14/2026 10:10 AM EDT Office Visit [facility] [address] [place] [address] [place] [address] Talon Seth DO [address] [place] [address] documented as of this encounter Visit Diagnoses [...] documented as of this encounter Care Teams Chronic Care Nurse Relationship Specialty Start Date End Date Harris Lennon MD [address] [place] [address], [address] [place] [address] PCP - General Internal Medicine 01/16/21 Kory Vogt MD [address] [place] [address] Gastroenterology 10/07/21 Harris Lennon MD [address] [place] [address], [address] [place] [address] Insurance Assigned Provider 12/17/23 Margarita Davidson RN [address] [place] [address], [address] [place] [address] [email or web address] PHCM Architectural Technician 06/02/22 06/29/22 Margarita Davidson RN [address] [place] [address], [address] [place] [address] PHC Architectural TechnicianCover Seamer 07/01/22 02/17/25 Jyoti Aviles, OT [address] [place] [address] [email or web address] Transitions Architectural TechnicianResource Management Specialist Therapy 12/12/2312/14/23 documented as of this encounter Additional Source Comments The information contained in this document represents components of the legal health record. It is not the complete legal health record.[facility]
--- OUTSIDE RECORDS SUMMARY | 2025-08-06 17:01 | XMS_ITS | Encounter Summary ---
Author Organization [facility] Address [address] [place] [address] Phone Care Team Providers Care Construction Electrician Name Role Phone Harris Lennon MD Primary Care Provider [phone] Kory Vogt MD Unavailable Harris Lennon MD Unavailable [phone] Margarita Davidson RN Unavailable [email or web address] Encounter Details Date Type Department Care Team (Late st Contact Info) Description 05/01/2024 Telephone [facility] [address] [place], [place] [phone] Opal Billy, RN [address] [place] [phone] [email or web address] Social History Tobacco Use Types Packs/Day Years [...] - 05/01/2024 11:31 AM EDT [facility] calls to report critical INR of 1.4. patient denies missed dose or any changes in medication. This week she will take 5mg today and tomorrow, 2.5mg on , and will be seen again on Tuesday. documented in this encounter Plan of Treatment Upcoming Encounters Date Type Department Care Team (Late st Contact Info) Description 04/08/2025 Procedure Pass Echo Lab [address] [place] [address] 09/09/2025 11:15 AM EST Appointment Echo Lab [address] [place] [address] Stacie Gruber PA-C [address] [place] [address] 09/27/2025 10:40 AM EST Office Visit [facility] [address] [place] [address] 3rd Floor, [address] [place] [address] Davidson Gunter MD [address] [place] [address], [address] [place] [address] 01/30/2026 11:00 AM EDT Office Visit [facility] [place] [facility] [address] [place] [address] [place] [address] Harris Lennon MD [address] [place] [address], [address] [place] [address] 02/14/2026 10:10 AM EDT Office Visit [facility] 22 [place] [address] Talon Seth DO 22 [place] [address] documented as of this encounter Visit Diagnoses Not on filedocumented in this encounter Additional Health Concerns Assessment Noted Time PHQ-9 Depression Total Score: 15 018 2:17 PM EST PHQ-2 Depression Total Score: 0 06/22/20 23 1:25 PM EDT documented as of this encounter Care Teams Construction Electrician Relationship Specialty Start Date End Date Harris Lennon MD [address] [place] [address], [address] [place] [address] PCP - General Internal Medicine 01/16/21 Kory Vogt MD [address] [address] [address] Gastroenterology 10/07/21 Harris Lennon MD [address] [place] [address], [address] [place] [address] Insurance Assigned Provider 12/17/23 Margarita Davidson RN [address] [place] [address], [address] [place] [address] [email or web address] PHCM Advanced Manufacturing Vice PresidentTransmission System Operator 07/01/22 02/17/25 documented as of this encounter Additional Source Comments The information contained in this document represents components of the legal health record. It is not the complete legal health record.[facility]
--- OUTSIDE RECORDS SUMMARY | 2025-08-06 17:01 | XMS_ITS | Encounter Summary ---
Author Organization [facility] Address [address] [place] [address] Phone Care Team Providers Care Administrative Resources Associate Name Role Phone Harris Lennon MD Primary Care Provider [phone] Kory Vogt MD Unavailable Harris Lennon MD Unavailable [phone] Margarita Davidson RN Unavailable [email or web address] Jyoti Aviles OT Unavailable [phone] Encounter Details Date Type Department Care Team (Latest Contact Info) Description 08/02/2022 Transcribe Orders Virtual Department 30 [place], [place] [phone] Harris Lennon MD 22 [facility], [address] [place] [address] [email or web address] Breast screening (Primary Dx) Social [...] Info) Description 04/08/2025 Procedure Pass Echo Lab [address] [place] [address] 09/09/2025 11:15 AM EST Appointment Echo Lab [address] [place] [address] Stacie Gruber PA-C [address] [place] [address] 09/27/2025 10:40 AM EST Office Visit [facility] [address] [place] [address] 3rd Floor, [address] [place] [address] Davidson Gunter MD [address] [place] [address], [address] [place] [address] 01/30/2026 11:00 AM EDT Office Visit [facility] [place] [facility] [address] [place] [address] Harris Lennon MD [address] [place] [address], [address] [place] [address] 02/14/2026 10:10 AM EDT Office Visit [facility] [address] [place] [address] [place] [address] Talon Seth DO [address] [place] [address] documented as of this encounter Results * [...] scattered fibroglandular densities. us Harris Lennon MD IM MG EXAMS Final Resu lt documented in [...] documented as of this encounter Care Teams Administrative Resources Associate Relationship Specialty Start Date End Date Harris Lennon MD [address] [place] [address], [address] [place] [address] PCP - General Internal Medicine 01/16/21 Kory Vogt MD [address] [place] [address] Gastroenterology 10/07/21 Harris Lennon MD [address] [place] [address], [address] [place] [address] Insurance Assigned Provider 12/17/23 Margarita Davidson, RN [address] [place] [address], [address] [place] [address] [email or web address] PHCM Hospital Receiving ClerkEvent Decorator 07/01/22 02/17/25 Jyoti Aviles, OT [address] [place] [address] Transitions Hospital Receiving ClerkWire Loop Machine Operator Therapy 12/12/2312/14/23 documented as of this encounter Additional Source Comments The information contained in this document represents components of the legal health record. It is not the complete legal health record.[facility]
--- OUTSIDE RECORDS SUMMARY | 2025-08-06 17:01 | XMS_ITS | Encounter Summary ---
Author Organization [facility] Address [address] [place] [address] Phone Care Team Providers Care Apparel Merchandiser Name Role Phone Harris Lennon MD Primary Care Provider [phone] Kory Vogt MD Unavailable Harris Lennon MD Unavailable [phone] Reason for Visit * Reason Onset Date Comments Results 07/08/2025 Encounter Details Date Type Department Care Team (Late st Contact Info) Description 07/08/2025 Telephone [facility] [address] [place] [address] [email or web address] Results Social History Tobacco Use Types Packs/Day [...] EDT Syed from the coumadin clinic at [facility] states Lindsey's INR 1.5 today. Her target [...] recommendations or changes, please call her at [phone]. * Krissy Jarvis - 07/08/2025 11:51 AM EDT Alyse from [facility] Anticoagulation clinic called in to provide a critical test result. Please contact and advise. Central Support Smudger (Please do not reply to this user; this inbox is not monitored.) Thank you. documented in this encounter Plan of Treatment Upcoming Encounters Date Type Department Care Team (Late st Contact Info) Description 04/08/2025 Procedure Pass [facility] [place] [address] [place] [address] 09/09/2025 11:15 AM EST Appointment Echo Lab [address] [place] [address] Stacie Gruber PA-C [address] [place] [address] 09/27/2025 10:40 AM EST Office Visit [facility] [address] [place] [address] 3rd Floor, [address] [place] [address] Davidson Gunter MD [address] [place] [address], [address] [address] 01/30/2026 11:00 AM EDT Office Visit [address] [place] [address] Harris Lennon MD [address] [place] [address], [address] [place] [address] 02/14/2026 10:10 AM EDT Office Visit [facility] [address] [place] [address] [place] [address] Talon Seth DO 22 [place] [address] documented as of this encounter Visit Diagnoses Not on filedocumented in this encounter Additional Health Concerns Assessment Noted Time PHQ-9 Depression Total Score: 15 018 2:17 PM EST PHQ-2 Depression Total Score: 0 09/06/20 24 10:43 AM EST documented as of this encounter Care Teams Apparel Merchandiser Relationship Specialty Start Date End Date Harris Lennon MD [address] [place] [address], [address] [place] [address] PCP - General Internal Medicine 5/7/21 Kory Vogt MD [address] [place] [address] Gastroenterology 10/07/21 Harris Lennon MD [address] [place] [address], [address] [place] [address] Insurance Assigned Provider 12/17/23 documented as of this encounter Additional Source Comments The information contained in this document represents components of the legal health record. It is not the complete legal health record.[facility]
--- OUTSIDE RECORDS SUMMARY | 2025-08-06 17:01 | XMS_ITS | Clinical Summary ---
Author Organization [facility] Address [address] [place] [address] Care Team Providers Care Yarn Weigher Name Role Phone Unavailable Primary Care Provider [...]
--- OUTSIDE RECORDS SUMMARY | 2025-08-06 17:01 | XMS_ITS | Encounter Summary ---
Author Organization [facility] Address [address] [place] [address] Phone Care Team Providers Care Physician/Internist Name Role Phone Xuan Ferraro DO Primary Care Provider + [phone] Xuan Ferraro DO Unavailable [phone] Harris Lennon MD Primary Care Provider [phone] Kory Vogt MD Unavailable Xuan Ferraro DO Unavailable [phone] Harris Lennon MD Unavailable [phone] Margarita Davidson RN Unavailable [email or web address] Margarita Davidson RN Unavailable [email or web address] Jyoti Aviles OT Unavailable [phone] Encounter Details Date Type Department Care Team (Late st Contact Info) Description 05/21/2020 Procedure Pass [facility], [address] [address] Social History Tobacco Use Types Packs/Day Years [...] Description 04/08/2025 Procedure Pass Echo Lab [address] [place] [address] 09/09/2025 11:15 AM EST Appointment Echo Lab [address] [place] [address] Stacie Gruber PA-C [address] [place] [address] 09/27/2025 10:40 AM EST Office Visit [facility] [address] [place] [address] 3rd Floor, [address] [place] [address] Davidson Gunter MD [address] [place] [address], [address] [address] 01/30/2026 11:00 AM EDT Office Visit [facility] [place] [facility] [address] [place] [address] [place] [address] Harris Lennon MD [address] [place] [address], [address] [place] [address] 02/14/2026 10:10 AM EDT Office Visit [facility] [address] [place] [address] [place] [address] Talon Seth DO [address] [place] [address] documented as of this encounter Visit Diagnoses [...] documented as of this encounter Care Teams Physician/Internist Relationship Specialty Start Date End Date Xuan Ferraro DO [address] [place] [address] [email or web address] PCP - General 09/15/18 01/15/21 Harris Lennon MD [address] [place] [address], [address] [place] [address] [email or web address] PCP - General Internal Medicine 01/16/21 Xuan Ferraro DO [address] [place] [address] [email or web address] Insurance Assigned Provider 06/09/19 10/06/21 Kory Vogt MD [address] [place] [address] [email or web address] Gastroenterology 10/07/21 Xuan Ferraro DO [address] [place] [address] [email or web address] Insurance Assigned Provider 06/09/19 12/19/21 Harris Lennon MD [address] [place] [address], [address] [place] [address] [email or web address] Insurance Assigned Provider 12/17/23 Margarita Davidson RN [address] [place] [address], [address] [place] [address] [email or web address] PHCM Swage Tender 06/02/22 06/29/22 Margarita Davidson, RN 22 [facility], [address] [place] [address] [email or web address] PHC Swage TenderElectrophysiology Tech 07/01/22 02/17/25 Jyoti Aviles, OT [address] [place] [address] [email or web address] Transitions Swage TenderRibbon Sweatband Operator Therapy 12/12/2312/14/23 documented as of this encounter Additional Source Comments The information contained in this document represents components of the legal health record. It is not the complete legal health record.[facility]
--- OUTSIDE RECORDS SUMMARY | 2025-08-06 17:01 | XMS_ITS | Encounter Summary ---
Author Organization [facility] Address [address] [place] [address] Phone Care Team Providers Care Director Of Channel Marketing Name Role Phone Harris Lennon MD Primary Care Provider [phone] Kory Vogt MD Unavailable Harris Lennon MD Unavailable [phone] Margarita Davidson RN Unavailable [email or web address] Encounter Details Date Type Department Care Team (Late st Contact Info) Description 08/02/2024 Procedure Pass [facility], [address] [id number] Social History Tobacco Use Types Packs/Day Years [...] Description 04/08/2025 Procedure Pass [facility] [address] [place] [address] 09/09/2025 11:15 AM EST Appointment Echo Lab [address] [place] [address] Stacie Gruber PA-C [address] [place] [address] 09/27/2025 10:40 AM EST Office Visit [facility] [address] [place] [address] 3rd Floor, [address] [place] [address] Davidson Gunter MD [address] [place] [address], [address] [place] [address] 01/30/2026 11:00 AM EDT Office Visit [facility] [address] [place] [address] [place] [address] Harris Lennon MD [address] [place] [address], [address] [place] [address] 02/14/2026 10:10 AM EDT Office Visit [place] [address] Talon Seth DO [address] [place] [address] [email or web address] documented as of this encounter Visit Diagnoses Not on filedocumented in this encounter Additional Health Concerns Assessment Noted Time PHQ-9 Depression Total Score: 15 018 2:17 PM EST PHQ-2 Depression Total Score: 0 09/06/20 24 10:43 AM EST documented as of this encounter Care Teams Director Of Channel Marketing Relationship Specialty Start Date End Date Harris Lennon MD [address] [place] [address], [address] [address] PCP - General Internal Medicine 01/16/21 Kory Vogt MD [address] [place] [address] [email or web address] Gastroenterology 10/07/21 Harris Lennon MD [address] [place] [address] [email or web address] Insurance Assigned Provider 12/17/23 Margarita Davidson RN [address] [place] [address] [email or web address] PHCM Clinical Rn LiaisonPlumbing Instructor 07/01/22 02/17/25 documented as of this encounter Additional Source Comments The information contained in this document represents components of the legal health record. It is not the complete legal health record.[facility]
--- OUTSIDE RECORDS SUMMARY | 2025-08-06 17:01 | XMS_ITS | Data Portability ---
Author Organization [place] [facility] Address [address] [place] [address] Care Team Providers Care Patient Relations Director Name Role Phone [email or web address] Primary Care Provider Assessment Encounter Date Assessment Date Assessment LastModified by Organization Details LastModified Time 08/19/2020 08/19/2020 Overview/History : 74-year-old female with past medical history significant for asthma, COPD, depression, dementia, hyperlipidemia, hypertension, history of PE and TIA, aortic dissection status post repair and aortic valve replacement, PAF on coumadin, and osteoporosis, new to [facility], who presents with complaints of tick bite. [...] WB and NE tick panel pending. Plan/Discussion: [facility] came to evaluate your rash. You likely [...] Thank you for your visit with [facility] today. We cannot always find the [...] your condition between 8am-10pm, please call [facility] at [phone] to help navigate your care. Time On Scene with Patient: 00:51:41 simeon Not available 08/19/2020 12:31:00 Plan of Treatment Reminders Order Date Submit Date Provider Last Modified By Organization Details Last Modified Time Details Appointments None recorded. Lab lyme disease Ab, total, serum 2019 HIRAM [facility] (Centralized Electronic Ordering - All Locations), Patient Can Go To The Location Of Their Choice, [address] 0 16:27:56 tick-borne disease panel 2019 [email or web address] [facility] (Centralized Electronic Ordering - All Locations), Patient Can Go To The Location Of Their Choice, [address] 1 13:50:37 Referral None recorded. Procedures None recorded. Surgeries None recorded. Imaging None recorded. Medication Orders doxycycline hyclate 100 mg capsule 2019 simeon [id number], [address] [facility], [place], [address], 0 12:12:53 Patient TargetsNo targets recorded. Patient Instructions Encounter Date Encounter Id Patient Instructions Last Modified By Organization Details Last Modified Time 08/19/2020 [id number] [facility] came to evaluate your rash. You likely [...] days. [facility]. We cannot always find the [...] your condition between 8am-10pm, please call [facility] at [phone] to help navigate your care. simeon Not [...] Go To The Location Of Their Choice, [address] 08/21/2020 16:27:56 Result Notes None recorded. Problems Name Problem SNOMED Code Status Onset Date Resolution Date Notes Provider Name and Address Organization Details Recorded Time Dementia 04200532 Active 020 [facility] [address] [place], [address] , [place] [facility] 0 11:23:51 Problem Notes None recorded. Procedures Surgical History Date Name Laterality Status Provider Name and Address Organization Details Recorded Time 08/19/20 20 Venipuncture - DH completed [facility]A [address], [place], [address], [place] [facility] 08/19/2020 12:21:11 Imaging Results None recorded. Procedure Notes None recorded. Medical Equipment None Reported. Allergies Allergen ID Allergen Name Allergen Category Reaction Reaction Severity Criticality Documentation Date Start Date Code Code System Note Provider Name and Address Organization Details Recorded Time 209288 Substance with sulfonami de structure and antibacte rial mechanism of action (substanc e) medicatio n Not available Not available Not available 08/19/2020 50572 8003 SNOMED [facility]ECI VER[place] [address] [place], [address], [place] [facility] 0 11:22:26 025948 Product containin g penicilli n (product) medicatio n Not available Not available Not available 08/19/2020 48173 8001 SNOMED [facility]ECI VERA [address] [place], [address], [place] [facility] 0 11:22:41 068745 acetamino phen / oxycodone medicatio n Not available Not available Not available 08/19/2020 49229 3 RxNorm [facility]A [address], [place], [address], [place] [facility] 0 11:22:51 901877 nitrofura ntoin medicatio n Not available Not available Not available 08/19/2020 7454 RxNorm [facility] [address], [place], [address], [place] [facility] 0 11:23:05 959803 Tamiflu medicatio n Not available Not available Not available 08/19/2020 35932 7 RxNorm [facility] [address], [place], [address], [place] [facility] 0 11:23:13 474982 memantine medicatio n Not available Not available Not available 08/19/2020 6719 RxNorm [facility] [address], [place], [address], [place] [facility] 0 [...] rate Body temperature Respiratory rate Oxygen saturation Heart rate Systolic And Diastolic Provider Name and Address Organization Details Last Updated DateTime 0 64 /min 97.6 [degF] 18 /min 99 % 62 /min 130/68 mm[Hg] Not Available [facility] 0 11:27:27 Social History Question Answer Notes LastModified by Organizat ion Details LastModified Time Tobacco Smoking Status Former Smoker [facility] [address] [place], [address], [place] [facility] 08/19/2020 11:29:43 Do You Have An Advance Directive? Yes badAudasterki Information not available 08/19/2020 What Is Your Code Status? DNR Information not available 08/19/2020 Within The Past 12 Months, Has It Happened That The Food You Bought Just Didn't Last And You Didn't Have Money To Get More. No Minor [employer]ki Information not available 08/19/2020 Within The Past 12 Months, Have You Worried That Your Food Would Run Out Before You Got Money To Buy More. No [employer] Information not available 08/19/2020 Fall Risk: Do You Feel Unsteady When Standing Or Walking? No [employer] Information not available 08/19/2020 We Know That How And When People Interact With Friends And Family Can Be Very Different From Person To Person. How Often Do You Have The Opportunity To See Or Talk To People That You Care About And Feel Close To? (Ex: Talking To Friends On The Phone Or Visiting Friends Or Family Or Going To Christianity Or Club Meetings) 5 Or More Times Per Week badAudasterki Information not available 08/19/2020 Excessive Alcohol Or Drug Use No badAudasterki Information not available 08/19/2020 We Know From [...] available 04/2020 11:30:50 Medical History Condition Response Coronary Artery Disease N COPD Y Depression Y Cancer N Stroke Y High Cholesterol Y Kidney Disease N Diabetes N Asthma Y Pulmonary Embolism Y Hypertension Y Gynecological HistoryNo gynecological history recorded. Obstetrics History GPAL:G 0 P 0 0 0 0 Past Encounters Encounter ID Performer Location Encounter Start Date Encounter Closed Date Diagnosis/Indication Diagnosis SNOMED-CT Code Diagnosis ICD10 Code Diagnosis IMO Codes Diagnosis Note [id number] [facility] [address] [place] [address] 08/19/2020 11:12:55 08/19/2020 19:09:01 Lyme disease 09089662 A69.20 Health Concerns Section Related Observation LastModified by Organization Detai ls LastModified Time None Recorded Concern Status LastModified by Organization Details LastModified Time None Recorded Advance Directives Directive Y: Payers Insurance Date Sequence Insurance Name Policy Number Policy Cottrell Covered Member ID Cottrell Member ID Guarantor Name 08/19/2020 1 *SELF PAY* Lindsey José [id number] Lindsey José 08/19/2020 1 [place] [employer] Lindsey José [id number] Lindsey José 08/19/2020 2 [facility] ([place]) [id number] Lindsey José [id number] Lindsey José 08/19/2020 2 [facility] ([place] Lindsey José [id number] Lindsey José Notes Date Note Type Note Provider Name and Address Organization Details Recorded Time 08/19/2020 text/html 74-year-old female with past medical history significant for asthma, COPD, depression, dementia, hyperlipidemia, hypertension, history of PE and TIA, aortic dissection status post repair and aortic valve replacement, PAF on coumadin, and osteoporosis, new to [facility], who presents with complaints of tick bite. [...] this time. [facility] [address], [place], [address], [place] [facility] 08/19/2020 12:31:09 OBGyn Episode No OBEpisode recorded.
--- OUTSIDE RECORDS SUMMARY | 2025-08-06 17:01 | XMS_ITS | Encounter Summary ---
Author Organization [facility] Address [address] [place] [address] Phone Care Team Providers Care Model Dresser Name Role Phone Xuan Ferraro DO Primary Care Provider Xuan Ferraro DO Unavailable [phone] Harris Lennon MD Primary Care Provider Kory Vogt MD Unavailable Xuan Ferraro DO Unavailable [phone] Harris Lennon MD Unavailable [phone] Margarita Davidson RN Unavailable [email or web address] Margarita Davidson RN Unavailable [email or web address] Jyoti Aviles OT Unavailable Encounter Details Date Type Department Care Team (Latest Contact Info) Description 08/13/2019 Transcribe Orders [facility] [place] [address] [place] [address] Gabriel Fay MD [email or web address] Personal history of arthritis (Primary Dx); Senile [...] Info) Description 04/08/2025 Procedure Pass [facility] [address] [place] [address] 09/09/2025 11:15 AM EST Appointment [facility] [address] [place] [address] Stacie Gruber PA-C [address] [place] [address] 09/27/2025 10:40 AM EST Office Visit [facility] [address] [place] [address] 3rd Floor, [address] [place] [address] Davidson Gunter MD [address] [place] [address], [address] [place] [address] 01/30/2026 11:00 AM EDT Office Visit [facility] [place] [address] [place] [address] [place] [address] Harris Lennon MD [address] [place] [address], [address] [place] [address] 02/14/2026 10:10 AM EDT Office Visit [facility] [address] [place] [address] [place] [address] Talon Seth DO [address] [place] [address] documented as of this encounter Visit Diagnoses [...] documented as of this encounter Care Teams Model Dresser Relationship Specialty Start Date End Date Xuan Ferraro DO [address] [place] [address] [email or web address] PCP - General 09/15/18 01/15/21 Harris Lennon MD [address] [place] [address], [address] [place] [address] PCP - General Internal Medicine 01/16/21 Xuan Ferraro DO [address] [place] [address] [email or web address] Insurance Assigned Provider 06/09/19 10/06/21 Kory Vogt MD [address] [place] [address] [email or web address] Gastroenterology 10/07/21 Xuan Ferraro DO [address] [place] [address] [email or web address] Insurance Assigned Provider 06/09/19 12/19/21 Harris Lennon MD [address] [place] [address], [address] [place] [address] [email or web address] Insurance Assigned Provider 12/17/23 Margarita Davidson RN [address] [place] [address], [address] [place] [address] [email or web address] PHCM Ham Boner 06/02/22 06/29/22 Margarita Davidson RN [address] [place] [address], [address] [place] [address] [email or web address] [facility] Ham BonerArt Department Head 07/01/22 02/17/25 Jyoti Aviles, OT [address] [place] [address] [email or web address] [email or web address] Ham BonerForeign Correspondent Therapy 12/12/2312/14/23 documented as of this encounter Additional Source Comments The information contained in this document represents components of the legal health record. It is not the complete legal health record.[facility]
--- OUTSIDE RECORDS SUMMARY | 2025-08-06 17:01 | XMS_ITS | Encounter Summary ---
Author Organization [facility] Address [address] [place] [address] Phone Care Team Providers Care Fur Comber Name Role Phone Xuan Ferraro DO Unavailable [phone] Harris Lennon MD Primary Care Provider [phone] Kory Vogt MD Unavailable Xuan Ferraro DO Unavailable [phone] Harris Lennon MD Unavailable [phone] Margarita Davidson RN Unavailable [email or web address] Margarita Davidson RN Unavailable [email or web address] Jyoti Aviles OT Unavailable [phone] Reason for Referral * MRI/CAT Scan - Closed Specialty Diagnoses / Procedures Referred By Contac t Referred To Contact Radiology Diagnoses RLQ abdominal pain Weight loss, abnormal Procedures CT Abdomen/Pelvis Javier Chauhan MD Phone: tel: fax: [email or web address] Referral ID Status Reason Start Date Expiration Date Visits Re quested Visits Authorized [id number] Closed 04/23/2021 04/23/2022 1 1 Encounter Details Date Type Department Care Team (Latest Contact Info) Description 04/23/2021 Transcribe Orders Virtual Department [address] [place] [address] [place] [address] Javier Chauhan MD [address] [place] [address] RLQ abdominal pain (Primary Dx); Weight loss, [...] Description 04/08/2025 Procedure Pass [facility] [address] [place] [address] 09/09/2025 11:15 AM EST Appointment [facility] [address] [place] [address] Stacie Gruber PA-C [address] [place] [address] 09/27/2025 10:40 AM EST Office Visit [facility] [address] [place] [address] 3rd Floor, [address] [place] [address] Davidson Gunter MD [address] [place] [address], [address] [place] [address] 01/30/2026 11:00 AM EDT Office Visit [address] [place] [address] Harris Lennon MD [address] [place] [address], [address] [place] [address] [email or web address] 02/14/2026 10:10 AM EDT Office Visit [facility] [address] [place] [address] Rolo Talon, DO [address] [place] [address] [email or web address] documented as of this encounter Results * [...] documented as of this encounter Care Teams Fur Comber Relationship Specialty Start Date End Date Harris Lennon MD [address] [place] [address], [address] [place] [address] [email or web address] PCP - General Internal Medicine 01/16/21 Xuan Ferraro DO [address] [place] [address] [email or web address] Insurance Assigned Provider 06/09/19 10/06/21 Kory Vogt MD [address] [place] [address] [email or web address] 10/07/21 Xuan Ferraro DO [address] [place] [address] [email or web address] Insurance Assigned Provider 06/09/19 12/19/21 Harris Lennon MD [address] [place] [address], [address] [place] [address] [email or web address] Insurance Assigned Provider 12/17/23 Margarita Davidson RN [address] [place] [address], [address] [place] [address] [email or web address] PHCM Adhesive Bandage Machine Operator 06/02/22 06/29/22 Margarita Davidson RN [address] [place] [address], [address] [place] [address] [email or web address] PHCM Adhesive Bandage Machine OperatorDirector Of Sales And Marketing 07/01/22 02/17/25 Jyoti Aviles, OT [address] [place] [address] [email or web address] Transitions Adhesive Bandage Machine OperatorNeuroscience Specialist Therapy 12/12/2312/14/23 documented as of this encounter Additional Source Comments The information contained in this document represents components of the legal health record. It is not the complete legal health record.[facility]
--- OUTSIDE RECORDS SUMMARY | 2025-08-06 17:01 | XMS_ITS | Encounter Summary ---
Author Organization [facility] Address [address] [place] [address] Phone Care Team Providers Care Social Media Assistant Name Role Phone Xuan Ferraro DO Unavailable [phone] Harris Lennon MD Primary Care Provider [phone] Kory Vogt MD Unavailable Xuan Ferraro DO Unavailable [phone] Harris Lennon MD Unavailable [phone] Margarita Davidson RN Unavailable [email or web address] Margarita Davidson RN Unavailable [email or web address] Jyoti Aviles OT Unavailable [phone] Encounter Details Date Type Department Care Team (Late st Contact Info) Description 04/23/2021 Procedure Pass [facility], Ct Scan - [address] [address] Social History Tobacco Use Types Packs/Day Years [...] Info) Description 04/08/2025 Procedure Pass [facility] [address] [place] [address] 09/09/2025 11:15 AM EST Appointment [facility] [address] [place] [address] Stacie Gruber PA-C [address] [place] [address] 09/27/2025 10:40 AM EST Office Visit [facility] [address] [place] [address] 3rd Floor, [address] [place] [address] Davidson Gunter MD [address] [place] [address], [address] [place] [address] 01/30/2026 11:00 AM EDT Office Visit [facility] [address] [place] [address] [place] [address] Harris Lennon MD [address] [place] [address], [address] [place] [address] 02/14/2026 10:10 AM EDT Office Visit [facility] [address] [place] [address] [place] [address] Talon Seth DO [address] [place] [address] documented as of this encounter Visit Diagnoses [...] documented as of this encounter Care Teams Social Media Assistant Relationship Specialty Start Date End Date Harris Lennon MD [address] [place] [address], [address] [place] [address] [email or web address] PCP - General Internal Medicine 01/16/21 Xuan Ferraro DO [address] [place] [address] [email or web address] Insurance Assigned Provider 06/09/19 10/06/21 Kory Vogt MD [address] [place] [address] [email or web address] 10/07/21 Xuan Ferraro DO [address] [place] [address] [email or web address] Insurance Assigned Provider 06/09/19 12/19/21 Harris Lennon MD [address] [place] [address], [address] [place] [address] [email or web address] Insurance Assigned Provider 12/17/23 Margarita Davidson RN [address] [place] [address], [address] [place] [address] [email or web address] PHCM Shoe Dresser 06/02/22 06/29/22 Margarita Davidson RN [address] [place] [address], [address] [place] [address] [email or web address] PHCM Shoe DresserRecruiting Team Lead 07/01/22 02/17/25 Jyoti Aviles, OT [address] [place] [address] [email or web address] Transitions Shoe DresserVeterinary Pathologist Therapy 12/12/2312/14/23 documented as of this encounter Additional Source Comments The information contained in this document represents components of the legal health record. It is not the complete legal health record.[facility]
--- OUTSIDE RECORDS SUMMARY | 2025-08-06 17:01 | XMS_ITS | Encounter Summary ---
Author Organization [facility] Address [address] [place] [address] Phone Care Team Providers Care Chief Fishery Division Name Role Phone Damien Lance MD Primary Care Provide r Xuan Ferraro DO Primary Care Provider + [phone] Damien Lance MD Unavailable [phone] Xuan Ferraro DO Unavailable [phone] Harris Lennon MD Primary Care Provider + [phone] Kory Vogt MD Unavailable Xuan Ferraro DO Unavailable [phone] Harris Lennon MD Unavailable [phone] Margarita Davidson RN Unavailable [email or web address] Margarita Davidson RN Unavailable [email or web address] Jyoti Aviles OT Unavailable [phone] Encounter Details Date Type Department Care Team (Late st Contact Info) Description 10/17/2017 Procedure Pass [facility], Ct Scan - [address] [id number] Social History Tobacco Use Types Packs/Day Years [...] Info) Description 04/08/2025 Procedure Pass [facility] [address] [place] [address] 09/09/2025 11:15 AM EST Appointment Echo [facility] [address] [place] [address] Stacie Gruber PA-C [address] [place] [address] 09/27/2025 10:40 AM EST Office Visit [facility] [address] [place] [address] 3rd Floor, [address] [place] [address] Davidson Gunter MD [address] [place] [address], [address] [place] [address] 01/30/2026 11:00 AM EDT Office Visit [facility] [place] [facility] [address] [place] [address] [place] [address] Harris Lennon MD [address] [place] [address], [address] [place] [address] 02/14/2026 10:10 AM EDT Office Visit [facility] [address] [place] [address] [place] [address] Talon Seth DO [address] [place] [address] documented as of this encounter Visit Diagnoses [...] as of this encounter Care Teams Chief Fishery Division Relationship Specialty Start Date End Date Damien Lance MD [email or web address] PCP - General Internal Medicine 07/18/17 09/14/18 Xuan Ferraro DO [address] [place] [address] [email or web address] PCP - General 09/15/18 01/15/21 Harris Lennon MD [address] [facility] [place] [address] [email or web address] PCP - General Internal Medicine 01/16/21 Damien Lance MD [address] [facility] Floor 1 [place] [address] [email or web address] Insurance Assigned Provider 07/16/17 06/09/19 Xuan Ferraro DO [address] [place] [address] [email or web address] Insurance Assigned Provider 06/09/19 10/06/21 Kory Vogt MD [address] [place] [address] [email or web address] Gastroenterology 10/07/21 Xuan Ferraro DO [address] [place] [address] [email or web address] Insurance Assigned Provider 06/09/19 12/19/21 Harris Lennon MD [address] [place] [address], [address] [place] [address] [email or web address] Insurance Assigned Provider 12/17/23 Margarita Davidson RN [address] [place] [address], [address] [place] [address] [email or web address] PHCM Electric Motor Repair Supervisor 06/02/22 06/29/22 Margarita Davidson RN [address] [place] [address], [address] [place] [address] [email or web address] PHC Electric Motor Repair SupervisorDrug Safety Associate 07/01/22 02/17/25 Jyoti Aviles, OT [address] [place] [address] [email or web address] Transitions Electric Motor Repair SupervisorPlane Tableman Therapy 12/12/2312/14/23 documented as of this encounter Additional Source Comments The information contained in this document represents components of the legal health record. It is not the complete legal health record.[facility]
--- OUTSIDE RECORDS SUMMARY | 2025-08-06 17:01 | XMS_ITS | Encounter Summary ---
Author Organization [facility] Address [address] [place] [address] Phone Care Team Providers Care Floor Worker Well Service Name Role Phone Harris Lennon MD Primary Care Provider [phone] Kory Vogt MD Unavailable Harris Lennon MD Unavailable [phone] Margarita Davidson RN Unavailable [email or web address] Encounter Details Date Type Department Care Team (Latest Contact Info) Description 08/02/2024 Transcribe Orders Virtual Department [address] [place] [address] Harris Lennon MD [address] [facility] [place] [address] [email or web address] Breast screening (Primary Dx) Social [...] Description 04/08/2025 Procedure Pass [facility] [address] [place] [address] 09/09/2025 11:15 AM EST Appointment Echo Lab [address] [place] [address] Stacie Gruber PA-C [address] [place] [address] 09/27/2025 10:40 AM EST Office Visit [facility] [address] [place] [address] 3rd Floor, [address] [place] [address] Davidson Gunter MD [address] [place] [address], [address] [place] [address] 01/30/2026 11:00 AM EDT Office Visit [facility] [address] [place] [address] [place] [address] Harris Lennon MD [address] [place] [address], [address] [place] [address] 02/14/2026 10:10 AM EDT Office Visit [facility] [address] [place] [address] Talon Seth DO [address] [place] [address] documented as of this encounter Results * [...] documented as of this encounter Care Teams Floor Worker Well Service Relationship Specialty Start Date End Date Harris Lennon MD [address] [place] [address], [address] [place] [address] PCP - General Internal Medicine 01/16/21 Kory Vogt MD [address] [place] [address] Gastroenterology 10/07/21 Harris Lennon MD [address] [place] [address], [address] [place] [address] Insurance Assigned Provider 12/17/23 Margarita Davidson, MARIZOL [address] [place] [address], [address] [place] [address] [email or web address] PHCM Automatic Vulcanizing OperatorGraduate Rn 07/01/22 02/17/25 documented as of this encounter Additional Source Comments The information contained in this document represents components of the legal health record. It is not the complete legal health record.[facility]
--- OUTSIDE RECORDS SUMMARY | 2025-08-06 17:01 | XMS_ITS | Encounter Summary ---
Author Organization [facility] Address [address] [place] [address] Phone Care Team Providers Care Claims Clerk Name Role Phone Harris Lennon MD Primary Care Provider [phone] Kory Vogt MD Unavailable Harris Lennon MD Unavailable [phone] Margarita Davidson RN Unavailable [email or web address] Encounter Details Date Type Department Care Team (Late st Contact Info) Description 03/14/2024 Procedure Pass [facility] [address] [place] [address] Social History Tobacco Use Types Packs/Day [...] Description 04/08/2025 Procedure Pass [facility] [address] [place] [address] 09/09/2025 11:15 AM EST Appointment Echo [facility] [address] [place] [address] Stacie Gruber PA-C [address] [place] [address] 09/27/2025 10:40 AM EST Office Visit [facility] [address] [place] [address] 3rd Floor, [address] [place] [address] Davidson Gunter MD [address] [place] [address], [address] [address] 01/30/2026 11:00 AM EDT Office Visit [facility] [place] [facility] [address] [place] [address] [place] [address] Harris Lennon MD [address] [place] [address], [address] [place] [address] 02/14/2026 10:10 AM EDT Office Visit [facility] [address] [place] [address] [place] [address] Talon Seth DO [address] [place] [address] documented as of this encounter Visit Diagnoses Not on filedocumented in this encounter Additional Health Concerns Assessment Noted Time PHQ-9 Depression Total Score: 15 018 2:17 PM EST PHQ-2 Depression Total Score: 0 09/06/20 24 10:43 AM EST documented as of this encounter Care Teams Claims Clerk Relationship Specialty Start Date End Date Harris Lennon MD [address] [place] [address], [address] [place] [address] [email or web address] PCP - General Internal Medicine 01/16/21 Kory Vogt MD [address] [place] [address] [email or web address] Gastroenterology 10/07/21 Harris Lennon MD [address] [place] [address], [address] [place] [address] [email or web address] Insurance Assigned Provider 12/17/23 Margarita Davidson RN [address] [place] [address], [address] [place] [address] [email or web address] PHCM Optician ManagerSnuff Drier 07/01/22 02/17/25 documented as of this encounter Additional Source Comments The information contained in this document represents components of the legal health record. It is not the complete legal health record.[facility]
--- OUTSIDE RECORDS SUMMARY | 2025-08-06 17:01 | XMS_ITS | Encounter Summary ---
Author Organization [facility] Address [address] [place] [address] Phone Care Team Providers Care Selling Manager Name Role Phone Harris Lennon MD Primary Care Provider [phone] Kory Vogt MD Unavailable Harris Lennon MD Unavailable [phone] Margarita Davidson RN Unavailable [email or web address] Encounter Details Date Type Department Care Team (Latest Contact Info) Description 09/14/2024 Transcribe Orders [facility] Specimen Processing [address] [place] [address] Harris Lennon MD [address] [facility], [address] [place] [address] [email or web address] Other osteoporosis without current pathological [...] Description 04/08/2025 Procedure Pass [facility] [address] [place] [address] 09/09/2025 11:15 AM EST Appointment Echo [facility] [address] [place] [address] Stacie Gruber PA-C [address] [place] [address] 09/27/2025 10:40 AM EST Office Visit [facility] [address] [place] [address] 3rd Floor, [address] [place] [address] Davidson Gunter MD [address] [place] [address], [address] [place] [address] 01/30/2026 11:00 AM EDT Office Visit [facility] [address] [place] [address] [place] [address] Harris Lennon MD [address] [place] [address], [address] [place] [address] 02/14/2026 10:10 AM EDT Office Visit [facility] [address] [place] [address] Talon Seth DO [address] [place] [address] [email or web address] documented as of this encounter Results * (ABNORMAL) Calcium, 24 hour urine (09/17/2024 10:33 AM EST) URINE CALCIUM 7.9 mg/dL [facility] CALCIUM OUTPUT 87(L) 100 - 300 mg/total output [facility] Urine (Urine) 09/17/2024 10: 33 AM EST 09/17/2024 10:39 AM EST us Talon Seth DO URINE ORDERABLES Final Result Performing Organization Address City/[facility]/ZIP Co de Phone Number [address] [address] * (ABNORMAL) Creatinine, 24 hr urine (09/17/2024 10:33 AM EST) URINE CREATININE 41 mg/dL [facility] CREATININE OUTPUT 451(L) 600 - 1,800 mg/total output [facility] Urine (Urine) 09/17/2024 10: 33 AM EST 09/17/2024 10:39 AM EST us Talon Seth DO LAB URINE ORDERABLES Final Resul t Performing Organization Address City/[facility]/ZIP Co de Phone Number [address] [address] documented in this encounter Visit Diagnoses Diagnosis Other osteoporosis without current pathological fracture- Primary documented in this encounter Additional Health Concerns Assessment Noted Time PHQ-9 Depression Total Score: 15 018 2:17 PM EST PHQ-2 Depression Total Score: 0 09/06/20 10:43 AM EST documented as of this encounter Care Teams Selling Manager Relationship Specialty Start Date End Date Harris Lennon MD [address] [place] [address], [address] [place] [address] PCP - General Internal Medicine 01/16/21 Kory Vogt MD [address] [place] [address] Gastroenterology 10/07/21 Harris Lennon MD [address] [place] [address], [address] [place] [address] Insurance Assigned Provider 12/17/23 Margarita Davidson RN [address] [place] [address], [address] [place] [address] [email or web address] PHCM Special Education Teaching AssistantSchool Lunch Monitor 07/01/22 02/17/25 documented as of this encounter Additional Source Comments The information contained in this document represents components of the legal health record. It is not the complete legal health record.[facility]
--- OUTSIDE RECORDS SUMMARY | 2025-08-06 17:01 | XMS_ITS | Encounter Summary ---
Author Organization [facility] Address [address] [place] [address] Care Team Providers Care Tetryl Wringer Operator Name Role Phone Unavailable Primary Care Provider Unavailabl e Encounter Details Date Type Department Care Team (Late st Contact Info) Description 07/27/[address] [facility] Cardiothoracic Surgery [place] [address] [facility] [address] [place] [address] Manny Lindo MD [address] [facility] [address] [place] [address] Social History Tobacco Use Types Packs/Day Years [...]
--- OUTSIDE RECORDS SUMMARY | 2025-08-06 17:01 | XMS_ITS | Patient Health Record ---
Author Organization [facility] Address [address] [facility] [place] [address] Care Team Providers Care Diabetes Specialist Name Role Phone Damien Lance Primary Care Provider Brianne Arcos Unavailable [phone] Allergies Allergen (clinical drug ingredient) Drug/Non Drug [...] Medicare National [employer] [address] [place] [address] [phone] [id number] Lindsey José Self - patient is the insured [employer] [address] [place] [address] [phone] [id number] Lindsey José Self - patient is the insured Medical (General) History Medical History History ICD Code osteoarthritis asthma Back,Hip,and Knee pain Broken bones Cholesterol Dementia Depression Heart disease Hypertension Neuropathy Reflux chronic sinusitis Measles Mumps Chicken pox Joint implants/screws Transfusions
--- OUTSIDE RECORDS SUMMARY | 2025-08-06 17:02 | XMS_ITS | Encounter Summary ---
Author Organization [facility] Address [address] [place] [address] Phone Care Team Providers Care Partridge Farmer Name Role Phone Xuan Ferraro DO Primary Care Provider + [phone] Xuan Ferraro DO Unavailable [phone] Harris Lennon MD Primary Care Provider Kory Vogt MD Unavailable Xuan Ferraro DO Unavailable [phone] Harris Lennon MD Unavailable [phone] Margarita Davidson RN Unavailable [email or web address] Margarita Davidson RN Unavailable [email or web address] Jyoti Aviles OT Unavailable Encounter Details Date Type Department Care Team (Late st Contact Info) Description 07/02/2020 Procedure Pass [facility], Ct Scan - [address] [address] Social History Tobacco Use Types Packs/Day Years [...] Description 04/08/2025 Procedure Pass [facility] [address] [place] [address] 09/09/2025 11:15 AM EST Appointment [facility] [address] [place] [address] Stacie Gruber PA-C [address] [place] [address] 09/27/2025 10:40 AM EST Office Visit [facility] [address] [place] [address] 3rd Floor, [address] [place] [address] Davidson Gunter MD [address] [place] [address], [address] [address] 01/30/2026 11:00 AM EDT Office Visit [facility] [place] [facility] [address] [place] [address] [place] [address] Harris Lennon MD [address] [place] [address], [address] [place] [address] 02/14/2026 10:10 AM EDT Office Visit [facility] [address] [place] [address] [place] [address] Talon Seth DO [address] [place] [address] documented as of this encounter Visit Diagnoses [...] documented as of this encounter Care Teams Partridge Farmer Relationship Specialty Start Date End Date Xuan Ferraro, [address] [place] [address] [email or web address] PCP - General 09/15/18 01/15/21 Harris Lennon MD [address] [place] [address], [address] [place] [address] [email or web address] PCP - General Internal Medicine 01/16/21 Xuan Ferraro DO [address] [place] [address] [email or web address] Assigned Provider 06/09/19 10/06/21 Kory Vogt MD [address] [place] [address] [email or web address] Gastroenterology 10/07/21 Xuan Ferraro DO [address] [place] [address] [email or web address] Insurance Assigned Provider 06/09/19 12/19/21 Harris Lennon MD [address] [place] [address], [address] [place] [address] [email or web address] Insurance Assigned Provider 12/17/23 Margarita Davidson RN [address] [place] [address], [address] [place] [address] [email or web address] PHCM Hot Dipper 06/02/22 06/29/22 Margarita Davidson, RN [address] [facility], [address] [place] [address] [email or web address] PHC Hot DipperBiomedical Equipment Support Specialist 07/01/22 02/17/25 Jyoti Aviles, OT [address] [place] [address] [email or web address] Transitions Hot DipperDirector Of Online Merchandising Therapy 12/12/2312/14/23 documented as of this encounter Additional Source Comments The information contained in this document represents components of the legal health record. It is not the complete legal health record.[facility]
--- OUTSIDE RECORDS SUMMARY | 2025-08-06 17:02 | XMS_ITS | Clinical Summary ---
Author Organization [facility] Address [address] [place] [address] Phone Care Team Providers Care Carpenter Form Name Role Phone Harris Lennon MD Primary Care Provider [phone] Kory Vogt MD Unavailable Harris Lennon MD Unavailable [phone] Allergies Active Allergy Reactions Criticality Noted Date Comments Donepezil Diarrhea High 04/17/2018 Nitrofurantoin Monohyd/M-Cryst 08/01 Memantine 03/07/2018 Rage Penicillins Diarrhea 07/28/2017 Oxycodone-Acetaminophen Rash Low 07/18/2017 Sulfa (Sulfonamide Antibiotics) Rash Low 02/2017 Oseltamivir Diarrhea Low 10/05/2017 Medications cholecalciferol (VITAMIN D3) 25 MCG (1,000 unit) tablet Take 1,000 Units by mouth daily. Active cranberry 400 mg Cap capsuleIndicati ons:Gummy [...] MOUTH DAILY 270 tablet 3 025 Active estradioL (ESTRACE) 0.01 % (0.1 mg/gram) vaginal creamIndication s:Mixed stress and urge urinary incontinence Place 2 g vaginally 2 (two) times a week. 42.5 g 5 025 Active estradioL (ESTRACE) 0.01 % (0.1 mg/gram) vaginal cream Place 2 g vaginally. 020 2024 Discontinued(R eorder) metoprolol succinate (TOPROL-XL) 25 MG 24 hr tabletIndicatio ns:Paroxysmal atrial fibrillation take 3 tablets by mouth daily 270 tablet 3 024 2024 Discontinued Active Problems Problem Noted Date Diagnosed Date Mixed stress and urge urinary incontinence 07/30 Assessment & Plan (07/30/2025 11:19 AM EST): Symptoms are worse. She had done better with topical estrogen in the past and will restart it. Normocytic anemia 01/25/2024 Assessment & Plan (09/06/2024 [...] will meet with Dr. Skelton in the [facility] system for continued management of her aortic [...] 2016. She remains asymptomatic. She follows with [facility] Dr. Skelton whom she most recently saw [...] years ago. Her last echocardiogram done in 2018 showed that her aortic valve is functioning [...] this 30 minute visit was spent in [id number] conversation with the patient going over her [...] EST): Essential hypertension 07/18/2017 Assessment & Plan (07/30/2025 11:19 AM EST): Blood pressure is well-controlled, continue current medication Assessment & Plan (05/02/2025 10:25 AM EDT): [...] Overview (10/07/2021): Medications managed by psychiatrist in [place] Assessment & Plan (03/07/2025 11:10 AM EDT): [...] bone density. I recommend she contact her electric switch tester and follow-up as planned. Assessment & Plan [...] hospital encounter of 05/18/19 (from the past 67252 hour(s)) DXA Monitoring Addendum: 05/25/2019 In addition [...] hospital encounter of 05/18/19 (from the past 07644 hour(s)) DXA Monitoring Addendum: 05/25/2019 In addition [...] hospital encounter of 05/18/19 (from the past 03257 hour(s)) DXA Monitoring Addendum: 05/25/2019 In addition [...] hospital encounter of 05/18/19 (from the past 38114 hour(s)) DXA Monitoring Addendum: 05/25/2019 In addition [...] fibrillation 07/18/2017 Overview (02/15/2022): Anticoagulation managed by [facility] clinic Assessment & Plan (07/30/2025 11:19 AM EST): Heart rate is well-controlled and she is tolerating anticoagulation, continue the same Assessment & Plan (04/10/2025 7:07 AM EDT): [...] without behavioral disturbance 07/13/2017 Assessment & Plan (07/30/2025 11:19 AM EST): Doing well with support from her , no additional intervention needed at this time. Assessment & Plan (03/07/2025 11:10 AM EDT): [...] check an x-ray Abnormal CT scan, chest 06/02/2021 0602/2025 Localized osteoarthritis of right knee 05/21/2020 08/31/2022 [...] Encounters Date Type Department Care Team Description 07/31/2025 Telephone [place] [address] [place] [address] Francine Reed RN Results 07/30/2025 10:45 AM EST Office Visit [address] [place] [address] Harris Lennon MD Essential hypertension (Primary Dx); Paroxysmal atrial fibrillation; Late onset Alzheimer's dementia without behavioral disturbance; Mixed stress and urge urinary incontinence 07/08/2025 Telephone [facility] [address] [place] [address] Krissy Jarvis Results 07/07/2025 Refill [facility] [address] [place] [address] Harris Lennon MD Medication Refill 05/21/2025 Orders Only [facility] [address] [place] [address] ProviderGary MD 05/14/2025 Refill [facility] [address] [place] [address] 3rd Floor, [address] [place] [address] Stacie Gruber, PABrendaC Medication Refill from Last 3 Months Immunizations [...] Sign Reading Time Taken Comments Blood Pressure 136/74 07/30/2025 10:50 AM EST Pulse 64 07/30/2025 10:50 AM EST Temperature 36.8 C (98.3 F) 07/30/2025 10:41 AM EST Respiratory Rate 16 06/16/2024 2:07 PM EDT Oxygen Saturation 97% 07/30/2025 10:41 AM EST Inhaled Oxygen Concentration - - Weight 68.9 kg (152 lb) 07/30/2025 10:41 AM EST Height 154.9 cm (5' 0.98 ) 07/30/2025 10:[address] Body Mass Index 28.74 07/30/2025 10:41 AM EST Plan of Treatment Upcoming Encounters Date Type Department Care Team (Late st Contact Info) Description 04/08/2025 Procedure Pass [facility] [address] [place] [address] 09/09/2025 11:15 AM EST Appointment [facility] [address] [place] [address] Stacie Gruber PA-C [address] [place] [address] 09/27/2025 10:40 AM EST Office Visit [facility] [address] [place] [address] 3rd Floor, [address] [place] [address] Davidson Gunter MD [address] [place] [address], [address] [place] [address] 01/30/2026 11:00 AM EDT Office Visit [facility] [address] [place] [address] [place] [address] Harris Lennon MD [address] [place] [address], [address] [place] [address] 02/14/2026 10:10 AM EDT Office Visit [facility] [address] [place] [address] [place] [address] Jazzmine Seth DO [address] [place] [address] Health Maintenance Due Date Last Done Comments LIPID PANEL 01/18/2024 01/17/2019, 04/2019, 08/26/2017, Additional history exists COVID-19 VACCINE ( season) 2025 05/29/2025, 06/28/2024, 06/18/2023, Additional history exists DEPRESSION SCREENING 09/06/2025 09/06/2024, 08/21/20 18 BLOOD PRESSURE 01/27/2026 07/30/2025 CREATININE LEVEL 07/30/2026 07/30/2025, , 09/17/2024, Additional history exists POTASSIUM LEVEL 07/30/2026 07/30/2025, 02/11, 09/06/2024, Additional history exists SMOKING Hx and SMOKELESS TOBACCO SCREENING 07/30/2026 07/30/2025 Adult Td,Tdap Booster 03/08/2031 03/08/2021 , 08/12/2015, 07/26/2002 PNEUMOCOCCAL VACCINES (50+ years) Completed 06/11/2015, 04/21/2011 ZOSTER VACCINES Completed 05/18/2018, 02/11, 07/25/2007 RSV VACCINE Completed 07/04/2023 OSTEOPOROSIS SCREENING INITIAL (ONE-TIME) Completed 03/11/2025, 03/08/2023, 05/18/2019, Additional history exists INFLUENZA VACCINE Completed 05/29/2025, , 06/18/2023, Additional history exists HEPATITIS A VACCINES Aged [...] this topic Medical Devices Implanted Type Area Power Shovel Engineer Device Identifier Shelf Expiration Date Model / Serial / Lot Wrist Description:lt wrist Sacral Illiac Joint Description:right side plate Lumbar Spine Description:diane Procedures Procedure Name Priority Date/Time Associated Diagnosis Comments PT-INR Routine 07/30/2025 11:27 AM EST Paroxysmal atrial fibrillation CBC Routine 07/30/2025 11:27 AM EST Paroxysmal atrial fibrillation BASIC METABOLIC PANEL (BMP) Routine 07/30/2025 11:27 AM EST Essential hypertension BD DXA HIP AND FOREARM Routine 03/11/2025 11:16 AM EDT Age-related osteoporosis without current pathological fracture LIPID PANEL Routine 01/17/2019 7:43 AM EDT Hypercholesterolemia from Last 3 Months or Most Recently Relevant to Health Maintenance Results * (ABNORMAL) PT-INR (07/30/2025 11:27 AM EST) PT 22.4(H) 10.0 - 13.0 sec 07/30/2025 4:02 PM [facility] INR 1.8(H) 0.9 - 1.1 07/30/2025 4:02 PM [facility] Comment:Therapeutic Range 2. 0 - 3.5 Blood (Blood) Venipuncture / Unknown 07/30/2025 11:27 AM EST 07/30/2025 11:28 AM EST us Harris Lennon MD LAB BLOOD BKR ORDERABLES F inal Result Performing Organization Address City/State/[facility] Co de Phone Number [address] [address] * CBC (07/30/2025 11:27 AM EST) WBC 7.61 4.00 - 11.00 K/uL 07/30/2025 4:01 PM [facility] RBC 4.02 4.00 - 5.20 M/uL 07/30/2025 4:01 PM [facility] Hemoglobin 12.3 12.0 - 16.0 g/dL 07/30/2025 4:01 PM [facility] Hematocrit 38.1 36.0 - 46.0 % 07/30/2025 4:01 PM [facility] MCV 94.8 80.0 - 100.0 fL 07/30/2025 4:01 PM [facility] MCH 30.6 27.0 - 31.0 pg 07/30/2025 4:01 PM [facility] MCHC 32.3 32.0 - 36.0 g/dL 07/30/2025 4:01 PM [facility] PLT 349 150 - 450 K/uL 07/30/2025 4:01 PM [facility] MPV 9.8 8.4 - 12.0 fL 07/30/2025 4:01 PM [facility] RDW-CV 13.2 11.5 - 14.5 % 07/30/2025 4:01 PM [facility] Absolute NRBC 0.00 <=0.00 K cells/uL 07/30/2025 4:01 PM [facility] NRBC 0.0 <=0.0 /100 WBCs 07/30/2025 4:01 PM [facility] Blood (Blood) Venipuncture / Unknown 07/30/2025 11:27 AM EST 07/30/2025 11:28 AM EST us Harris Lennon MD LAB BLOOD BKR ORDERABLES F inal Result [facility] [address] [place] [address] * Basic Metabolic Panel (BMP) (07/30/2025 11:27 AM EST) Sodium 136 136 - 145 mmol/L 07/30/2025 4:21 PM [facility] Potassium 4.7 3.4 - 5.1 mmol/L 07/30/2025 4:21 PM [facility] Chloride 99 98 - 107 mmol/L 07/30/2025 4:21 PM [facility] CO2 25 20 - 31 mmol/L 07/30/2025 4:21 PM [facility] Anion Gap 12 3 - 17 mmol/L 07/30/2025 4:21 PM [facility] BUN 14 6 - 23 mg/dL 07/30/2025 4:21 PM [facility] Creatinine 0.70 0.50 - 1.00 mg/dL 07/30/2025 4:21 PM [facility] eGFR 87 >59 mL/min/1.7 3m2 07/30/2025 4:21 PM [facility] Comment:Estimated glomerular filtration rate calculated using the CKD-EPI refit equation. Glucose 94 70 - 99 mg/dL 07/30/2025 4:21 PM [facility] Calcium 9.8 8.5 - 10.5 mg/dL 07/30/2025 4:21 PM EST [facility] Blood (Blood) Venipuncture / Unknown 07/30/2025 11:27 AM EST 07/30/2025 11:28 AM EST us Harris Lennon MD LAB BLOOD BKR ORDERABLES F inal Result [address] [address] * BD DXA HIP AND FOREARM (03/11/2025 11:16 AM EDT) Anatomical Region Laterality Modality Bone Density Bone Density 03/11/2025 11:1 4 AM EDT Impressions 03/12/2025 10:13 AM EDT Interpretation: Osteoporosis. Narrative 03/12/2025 10:13 AM EDT Referred By: JAZZMINE SETH Indications: Osteoporosis Scanner: Helpa A with serial# of [id number] located at [facility] Bone Density Scan (DXA) 03/11/25 Details [...] -2.5), or Osteoporosis (T-score <= -2.5). At [facility], T-scores are compared to peak bone [...] Referred By: JAZZMINE SETH Indications: Osteoporosis Scanner: Helpa A with serial# of [id number] located at [facility] Bone Density Scan (DXA) 03/11/25 Details of prior DXA scans are available by clicking View Full Report BMD T- Z- Skeletal Site gm/cm2 score score BMD Change Since Prior Scan ------ ----- Total Hip (Right) 0.727 -1.80 0.30 0.044 (6.4%)* since03/08/2023 Femoral Neck (Right) 0.624 -2.00 0.30 0.022 (stable) since03/08/2023 1/3 Radius (Right) 0.533 -2.60 0.60 0.020 (stable) 03/08/2023 ------ ----- * Denotes significant change when [...] -2.5), or Osteoporosis (T-score <= -2.5). At [facility], T-scores are compared to peak bone [...] BONE DENSITY DEXA Final R esult * (ABNORMAL) Lipid panel (01/17/2019 7:43 AM EDT) HDL 69 mg/dL [facility] Comment: Interpretation <40 mg/dL: Low HDL cholesterol (major risk factor for CHD) Greater than or equal to 60 mg/dL: High HDL cholesterol ( negative risk factor for CHD) HDL - cholesterol is affected by a number of factors, e.g. smoking, excerise, hormones, sex and age. CHOLESTEROL 168 0 - 240 mg/dL [facility] TRIGLYCERIDES 68 30 - 160 mg/dL [facility] LDL 85 50 - 129 mg/dL [facility] Comment: LDL levels in terms of risk for coronary heart disease: <100 mg/dL: Optimal 100-129 mg/dL: Near or above optimal 130-159 mg/dL: Borderline high 160-189 mg/dL: High >190 mg/dL: Very High CARDIAC RISK RATIO 2.4(L) 3.3 - 4.4 C [facility] Blood 01/17/2019 7:43 AM EDT 01/17/2019 7:46 AM EDT us Xuan Ferraro DO LAB BLOOD BKR ORDERABLES F inal Result [address] [address] from Last 3 Months or Most Recently Relevant to Health Maintenance Insurance MEDICARE PART A & B [employer]pass [employer] MEDEX SUPPLEMENT MEDICARE PART A & B Member Subscriber Plan / Payer (Ef fective 2009-Present) Name:Lindsey José Member ID:[id number] Relation to Subscriber:Self Name:Lindsey José Subscriber ID:[id number] Payer ID:[id number] Group ID:Not on file Type:Medicare Address: [facility] [address] [place] [phone] BLUE CROSS MEDEX SUPPLEMENT MEDICARE PART A & B [employer]pass Mobile MEDEX SUPPLEMENT MEDICARE PART A & B [employer]pass [employer] MEDEX SUPPLEMENT Member Subscriber Plan / [facility]-Present) Name:Lindsey José Relation to Subscriber:Self Name:Lindsey José Payer ID:[id number] (NAIC) Type:Indemnity Address: [id number] [place] [address] MEDICARE PART A & B Member Subscriber Plan / Payer ([facility]-) Name:Lindsey José Member ID:[id number] Relation to Subscriber:Self Name:Lindsey José Subscriber ID:[id number] Payer ID:[id number] Group ID:Not on file Type:Medicare Address: [employer] [address] [place], [place] [phone] Bypass Mobile MEDEX SUPPLEMENT Member Subscriber Plan / Payer ([facility] 08/12/2009-) Name:Lindsey José Relation to Subscriber:Self Name:Lindsey José Payer ID:[id number] (NAIC) Type:Indemnity Address: [id number] [place] [address] MEDICARE PART A & B Member Subscriber Plan / Payer ( fective 2009-Present) Name:Lindsey José Member ID:[id number] Relation to Subscriber:Self Name:Lindsey José Subscriber ID:[id number] Payer ID:[id number] Group ID:Not on file Type:Medicare Address: [employer] [address] [place] [phone] Bypass Mobile MEDEX SUPPLEMENT MEDICARE PART A & B Bypass [employer] MEDEX SUPPLEMENT MEDICARE PART A & B Bypass [employer] MEDEX SUPPLEMENT MEDICARE PART A & B Bypass [employer] MEDEX SUPPLEMENT Advance Directives For more information, please contact: [phone] (9AM - 5PM [place], Tuesday-Tuesday) * DNR/DNI (No CPR/No Intubation) (Latest Code Status on File) Date Activated Date Inactivated Comments 12/09/2023 7:13 PM Question Answer Comments Code Status Confirmed With: Patient Code Discussion Comments: per d/w patient 4 * Full Code (Confirmed) Date Activated Date Inactivated Comments 10/12/2017 7:49 PM 10/14/2017 2:44 PM Question Answer Comments Code Discussion Comments: patient Care Teams Carpenter Form Relationship Specialty Start Date End Date Harris Lennon MD [address] [place] [address], [address] [place] [address] PCP - General Internal Medicine 01/16/21 Kory Vogt MD [address] [place] [address] Gastroenterology 10/07/21 Harris Lennon MD [address] [place] [address], [address] [place] [address] Insurance Assigned Provider 12/17/23 Additional Source Comments The information contained in this document represents components of the legal health record. It is not the complete legal health record.[facility]
--- OUTSIDE RECORDS SUMMARY | 2025-08-06 17:02 | XMS_ITS | Encounter Summary ---
Author Organization [facility] Address [address] [place] [address] Phone Care Team Providers Care Strategic Partnership Manager Name Role Phone Harris Lennon MD Primary Care Provider [phone] Kory Vogt MD Unavailable Harris Lennon MD Unavailable [phone] Margarita Davidson RN Unavailable [email or web address] Jyoti Aviles OT Unavailable [phone] Encounter Details Date Type Department Care Team (Late st Contact Info) Description 08/08/2023 Procedure Pass [facility], [address] [address] Social History Tobacco Use Types Packs/Day Years [...] Description 04/08/2025 Procedure Pass [facility] [address] [place] [address] 09/09/2025 11:15 AM EST Appointment [facility] [address] [place] [address] Stacie Gruber PA-C [address] [place] [address] 09/27/2025 10:40 AM EST Office Visit [facility] [address] [place] [address] 3rd Floor, [address] [place] [address] Davidson Gunter MD [address] [place] [address], [address] [place] [address] 01/30/2026 11:00 AM EDT Office Visit [facility] [address] [place] [address] [place] [address] Harris Lennon MD [address] [place] [address], [address] [place] [address] 02/14/2026 10:10 AM EDT Office Visit [facility] [address] [place] [address] Talon Seth DO [address] [place] [address] documented as of this encounter Visit Diagnoses Not on filedocumented in this encounter Additional Health Concerns Infection Onset Date Last Indicated Resolved Time CoV-Risk 11/16/2023 11/16/2023 11/27/2023 1:21 AM EDT Assessment Noted Time PHQ-9 Depression Total Score: 15 018 2:17 PM EST PHQ-2 Depression Total Score: 0 06/22/20 23 1:25 PM EDT documented as of this encounter Care Teams Strategic Partnership Manager Relationship Specialty Start Date End Date Harris Lennon MD [address] [place] [address], [address] [place] [address] [email or web address] PCP - General Internal Medicine 01/16/21 Kory Vogt MD [address] [place] [address] [email or web address] Gastroenterology 10/07/21 Harris Lennno MD [address] [place] [address], [address] [place] [address] [email or web address] Insurance Assigned Provider 12/17/23 Margarita Davidson, RN [address] [place] [address], [address] [place] [address] [email or web address] Airplane Gas Tank Liner AssemblerSpanish Interpreter/Translator 07/01/22 02/17/25 Jyoti Aviles, OT [address] [place] [address] Transitions Airplane Gas Tank Liner AssemblerDigital Media Manager Therapy 12/12/2312/14/23 documented as of this encounter Additional Source Comments The information contained in this document represents components of the legal health record. It is not the complete legal health record.[facility]
--- OUTSIDE RECORDS SUMMARY | 2025-08-06 17:02 | XMS_ITS | Encounter Summary ---
Author Organization [facility] Address [address] [place] [address] Phone Care Team Providers Care Cold Mill Supervisor Name Role Phone Xuan Ferraro DO Primary Care Provider + [phone] Xuan Ferraro DO Unavailable [phone] Harris Lennon MD Primary Care Provider Kory Vogt MD Unavailable Xuan Ferraro DO Unavailable [phone] Harris Lennon MD Unavailable [phone] Margarita Davidson RN Unavailable [email or web address] Mragarita Davidson RN Unavailable [email or web address] Jyoti Aviles OT Unavailable [phone] Encounter Details Date Type Department Care Team (Late st Contact Info) Description 05/23/2020 Procedure Pass [facility], [address] [address] Social History Tobacco Use Types Packs/Day Years [...] Description 04/08/2025 Procedure Pass [facility] [address] [place] [address] 09/09/2025 11:15 AM EST Appointment [facility] [address] [place] [address] Stacie Gruber PA-C [address] [place] [address] 09/27/2025 10:40 AM EST Office Visit [facility] [address] [place] [address] [address]rd Floor, [address] [place] [address] Davidson Gunter MD [address] [place] [address], [address] [address] 01/30/2026 11:00 AM EDT Office Visit [facility] [address] [place] [address] [place] [address] Harris Lennon MD [address] [place] [address], [address] [place] [address] 02/14/2026 10:10 AM EDT Office Visit [facility] [address] [place] [address] [place] [address] Talon Seth DO [address] [place] [address] documented as of this encounter Visit Diagnoses [...] documented as of this encounter Care Teams Cold Mill Supervisor Relationship Specialty Start Date End Date Xuan Ferraro DO [address] [place] [address] [email or web address] PCP - General 09/15/18 01/15/21 Harris Lennon MD [address] [place] [address], [address] [place] [address] [email or web address] PCP - General Internal Medicine 01/16/21 Xuan Ferraro DO [address] [place] [address] [email or web address] Insurance Assigned Provider 06/09/19 10/06/21 Kory Vogt MD [address] [place] [address] [email or web address] Gastroenterology 10/07/21 Xuan Ferraro DO [address] [place] [address] [email or web address] Insurance Assigned Provider 06/09/19 12/19/21 Harris Lennon MD [address] [place] [address], [address] [place] [address] [email or web address] Insurance Assigned Provider 12/17/23 Margarita Davidson RN [address] [place] [address], [address] [place] [address] [email or web address] PHCM Collection Manager 06/02/22 06/29/22 Margarita Davidson, RN [address] [facility], [address] [place] [address] [email or web address] PHC Collection ManagerWarehousing Technician 07/01/22 02/17/25 Jyoti Aviles, OT [address] [place] [address] [email or web address] Transitions Collection ManagerBakery Products Checker Therapy 12/12/2312/14/23 documented as of this encounter Additional Source Comments The information contained in this document represents components of the legal health record. It is not the complete legal health record.[facility]
--- OUTSIDE RECORDS SUMMARY | 2025-08-06 17:02 | XMS_ITS | Encounter Summary ---
Author Organization [facility] Address [address] [place] [address] Phone Care Team Providers Care Heel Sprayer First Name Role Phone Harris Lennon MD Primary Care Provider [phone] Kory Vogt MD Unavailable Xuan Ferraro DO Unavailable [phone] Harris Lennon MD Unavailable [phone] Margarita Davidson RN Unavailable [email or web address] Margarita Davidson RN Unavailable [email or web address] Jyoti Aviles OT Unavailable [phone] Reason for Referral * MRI/CAT Scan - Closed Specialty Diagnoses / Procedures Referred By Contac t Referred To Contact Radiology Diagnoses RLQ abdominal pain Procedures CT Abdomen/Pelvis Margarita Hart NP Phone: tel: fax: Referral ID Status Reason Start Date Expiration Date Visits Re quested Visits Authorized [id number] Closed 11/26/2021 11/26/2022 1 1 Encounter Details Date Type Department Care Team (Latest Contact Info) Description 11/26/2021 Transcribe Orders Virtual Department [address] [place], [place] [phone] Margarita Hart NP [address] [place] [phone] RLQ abdominal pain (Primary Dx) Social History [...] Info) Description 04/08/2025 Procedure Pass [facility] [address] [place] [address] 09/09/2025 11:15 AM EST Appointment [facility] [address] [place] [address] Stacie Gruber PA-C [address] [place] [address] 09/27/2025 10:40 AM EST Office Visit [facility] [address] [place] [address] 3rd Floor, [address] [place] [address] Davidson Gunter MD [address] [place] [address], [address] [place] [address] 01/30/2026 11:00 AM EDT Office Visit [facility] [address] [place] [address] [place] [address] Harris Lennon MD [address] [place] [address], [address] [place] [address] 02/14/2026 10:10 AM EDT Office Visit [facility] [address] [place] [address] [place] [address] Talon Seth, DO [address] [place] [address] [email or web address] documented as of this encounter Results * [...] of cystitis. POS - [id number] Margarita Hart PUMP AND BLOWER OPERATOR IMG CT ABD/PELVIS Final R esult documented [...] documented as of this encounter Care Teams Heel Sprayer First Relationship Specialty Start Date End Date Harris Lennon MD [address] [place] [address], [address] [place] [address] [email or web address] PCP - General Internal Medicine 01/16/21 Kory Vogt MD [address] [address] [email or web address] Gastroenterology 10/07/21 Xuan Ferarro DO [address] [place] [address] [email or web address] Insurance Assigned Provider 06/09/19 12/19/21 Harris Lennon MD [address] [place] [address], [address] [place] [address] [email or web address] Insurance Assigned Provider 12/17/23 Margarita Davidson, MARIZOL [address] [place] [address], [address] [place] [address] [email or web address] [facility] Police Patrol Lieutenant 06/02/22 06/29/22 Margarita Davidson, RN [address] [facility] [place] [address] [email or web address] PHCM Police Patrol LieutenantMeasurement Supervisor 07/01/22 02/17/25 Jyoti Aviles, OT 30 [place] [address] [email or web address] Transitions Police Patrol LieutenantWool Sampler Therapy 12/12/2312/14/23 documented as of this encounter Additional Source Comments The information contained in this document represents components of the legal health record. It is not the complete legal health record.[facility]
--- OUTSIDE RECORDS SUMMARY | 2025-08-06 17:02 | XMS_ITS | Encounter Summary ---
Author Organization [facility] Address [address] [place] [address] Phone Care Team Providers Care Glass Block Installer Name Role Phone Xuan Ferraro DO Unavailable [phone] Harris Lennon MD Primary Care Provider [phone] Kory Vogt MD Unavailable Xuan Ferraro DO Unavailable [phone] Harris Lennon MD Unavailable [phone] Margarita Davidson RN Unavailable [email or web address] Margarita Davidson RN Unavailable [email or web address] Jyoti Aviles OT Unavailable Encounter Details Date Type Department Care Team (Late st Contact Info) Description 05/20/2021 Procedure Pass [facility], Ct Scan - [address] [address] Social History Tobacco Use Types Packs/Day Years [...] 11:28 AM EDT Chloe Robles RN * Success Suicide Severity Rating Scale (Screener/Recent Self-Report) Question [...] Description 04/08/2025 Procedure Pass [facility] [address] [place] [address] 09/09/2025 11:15 AM EST Appointment [facility] [address] [place] [address] Stacie Gruber PA-C [address] [place] [address] 09/27/2025 10:40 AM EST Office Visit [facility] [address] [place] [address] 3rd Floor, [address] [place] [address] Davidson Gunter MD [address] [place] [address], [address] [place] [address] 01/30/2026 11:00 AM EDT Office Visit [facility] [address] [place] [address] [place] [address] Harris Lennon MD [address] [place] [address], [address] [place] [address] 02/14/2026 10:10 AM EDT Office Visit [facility] [address] Talon Seth DO 22 [place] [address] documented as of this encounter Visit Diagnoses [...] documented as of this encounter Care Teams Glass Block Installer Relationship Specialty Start Date End Date Harris Lennon MD [address] [place], [place] [address] [place] [address] PCP - General Internal Medicine 01/16/21 Xuan Ferraro DO [address] [place] [address] [email or web address] Insurance Assigned Provider 06/09/19 10/06/21 Kory Vogt MD [address] [place] [address] Gastroenterology 10/07/21 Xuan Ferraro DO [address] [place] [address] [email or web address] Insurance Assigned Provider 06/09/19 12/19/21 Harris Lennon MD [address] [place], [place] [address] [place] [address] [email or web address] Insurance Assigned Provider 12/17/23 Margarita Davidson RN 22 [facility], [address] [place] [address] PHCM Senior Linux Systems Administrator 06/02/22 06/29/22 Margarita Davidson RN [address] [place] [address], [address] [place] [address] PHC Senior Linux Systems AdministratorSlasher Tender Helper 07/01/22 02/17/25 Jyoti Aviles, OT [address] [place] [address] [email or web address] Transitions Senior Linux Systems AdministratorShrimping Boat Captain Therapy 12/12/2312/14/23 documented as of this encounter Additional Source Comments The information contained in this document represents components of the legal health record. It is not the complete legal health record.[facility]
--- OUTSIDE RECORDS SUMMARY | 2025-08-06 17:02 | XMS_ITS | Encounter Summary ---
Author Organization [facility] Address [address] [place] [address] Phone Care Team Providers Care Multiple Effect Evaporator Operator Name Role Phone Harris Lennon MD Primary Care Provider [phone] Kory Vogt MD Unavailable Harris Lennon MD Unavailable [phone] Margarita Davidson RN Unavailable [email or web address] Jyoti Aviles OT Unavailable [phone] Encounter Details Date Type Department Care Team (Latest Contact Info) Description 08/08/2023 Transcribe Orders Virtual Department 30 [place], [place] [phone] Harris Lennon MD [address] [facility], [address] [place] [address] [email or web address] Breast screening (Primary Dx) Social [...] Description 04/08/2025 Procedure Pass [facility] [address] [place] [address] 09/09/2025 11:15 AM EST Appointment [facility] [address] [place] [address] Stacie Gruber PA-C [address] [place] [address] 09/27/2025 10:40 AM EST Office Visit [facility] [address] [place] [address] 3rd Floor, [address] [place] [address] Davidson Gunter MD [address] [place] [address], [address] [place] [address] 01/30/2026 11:00 AM EDT Office Visit [facility] [place] [facility] [address] [place] [address] [place] [address] Harris Lennon MD [address] [place] [address], [address] [place] [address] 02/14/2026 10:10 AM EDT Office Visit [facility] [address] [place] [address] [place] [address] Talon Seth DO 22 [place] [address] documented as of this encounter Results * [...] Noted Time PHQ-9 Depression Total Score: 15 12/10/2 018 2:17 PM EST PHQ-2 Depression Total Score: 0 06/22/20 23 1:25 PM EDT documented as of this encounter Care Teams Multiple Effect Evaporator Operator Relationship Specialty Start Date End Date Harris Lennon MD [address] [place] [address], [address] [place] [address] PCP - General Internal Medicine 01/16/21 Kory Vogt MD [address] [place] [address] Gastroenterology 10/07/21 Harris Lennon MD [address] [place] [address], [address] [place] [address] Insurance Assigned Provider 12/17/23 Margarita Davidson, RN [address] [place] [address], [address] [place] [address] [email or web address] Ice Resurfacing Machine OperatorsRail Switch Operator 07/01/22 02/17/25 Jyoti Aviles, OT [address] [place] [address] Transitions Ice Resurfacing Machine OperatorsFruit Buyer Therapy 12/12/2312/14/23 documented as of this encounter Additional Source Comments The information contained in this document represents components of the legal health record. It is not the complete legal health record.[facility]
--- OUTSIDE RECORDS SUMMARY | 2025-08-06 17:02 | XMS_ITS | Encounter Summary ---
Author Organization [facility] Address [address] [place] [address] Phone Care Team Providers Care Gyroscope Repairer Name Role Phone Xuan Ferraro DO Unavailable [phone] Harris Lennon MD Primary Care Provider [phone] Kory Vogt MD Unavailable Xuan Ferraro DO Unavailable [phone] Harris Lennon MD Unavailable [phone] Margarita Davidson RN Unavailable [email or web address] Margarita Davidson RN Unavailable [email or web address] Jyoti Aviles OT Unavailable Encounter Details Date Type Department Care Team (Late st Contact Info) Description 07/28/2021 Procedure Pass [address] [address] Social History Tobacco Use Types Packs/Day Years [...] Description 04/08/2025 Procedure Pass [facility] [address] [place] [address] 09/09/2025 11:15 AM EST Appointment [facility] [address] [place] [address] Stacie Gruber PA-C [address] [place] [address] 09/27/2025 10:40 AM EST Office Visit [facility] [address] [place] [address] 3rd Floor, [address] [place] [address] Davidson Gunter MD [address] [place] [address], [address] [place] [address] 01/30/2026 11:00 AM EDT Office Visit [facility] [address] [place] [address] Harris Lennon MD [address] [place] [address], [address] [place] [address] 02/14/2026 10:10 AM EDT Office Visit [facility] [address] [place] [address] [place] [address] Talon Seth DO 22 [place] [address] documented as of this encounter Visit Diagnoses [...] documented as of this encounter Care Teams Gyroscope Repairer Relationship Specialty Start Date End Date Harris Lennon MD [address] [place] [address], [address] [place] [address] PCP - General Internal Medicine 01/16/21 Xuan Ferraro DO [address] [place] [address] [email or web address] Insurance Assigned Provider 06/09/19 10/06/21 Kory Vogt MD [address] [place] [address] [email or web address] 10/07/21 Xuan Ferraro DO [address] [place] [address] [email or web address] Insurance Assigned Provider 06/09/19 12/19/21 Harris Lennon MD [address] [place] [address], [address] [place] [address] [email or web address] Insurance Assigned Provider 12/17/23 Margarita Davidson RN [address] [place] [address], [address] [place] [address] [email or web address] PHCM Card Folder 06/02/22 06/29/22 Margarita Davidson RN [address] [place] [address], [address] [place] [address] [email or web address] PHCM Card FolderConcrete Worker 07/01/22 02/17/25 Jyoti Aviles, OT [address] [place] [address] [email or web address] Transitions Card FolderShirt Bander Therapy 12/12/2312/14/23 documented as of this encounter Additional Source Comments The information contained in this document represents components of the legal health record. It is not the complete legal health record.[facility]
--- OUTSIDE RECORDS SUMMARY | 2025-08-06 17:02 | XMS_ITS | Encounter Summary ---
Author Organization [facility] Address [address] [place] [address] Phone Care Team Providers Care Music Library Assistant Name Role Phone Harris Lennon MD Primary Care Provider [phone] Kory Vogt MD Unavailable Xuan Ferraro DO Unavailable [phone] Harris Lennon MD Unavailable [phone] Margarita Davidson RN Unavailable [email or web address] Margarita Davidson RN Unavailable [email or web address] Jyoti Aviles OT Unavailable [phone] Encounter Details Date Type Department Care Team (Latest Contact Info) Description 11/25/2021 Transcribe Orders [facility] Phleb Earline [address] [facility] 2nd [place] [address] Margarita Hart, NIKO 10 [place] [address] Abdominal pain, right lower quadrant (Primary Dx) [...] Description 04/08/2025 Procedure Pass [facility] [address] [place] [address] 09/09/2025 11:15 AM EST Appointment [facility] [address] [place] [address] Stacie Gruber PA-C [address] [place] [address] 09/27/2025 10:40 AM EST Office Visit [facility] [address] [place] [address] 3rd Floor, [address] [place] [address] Davidson Gunter MD [address] [place] [address], [address] [place] [address] 01/30/2026 11:00 AM EDT Office Visit [address] [place] [address] Harris Lennon MD [address] [place] [address], [address] [place] [address] 02/14/2026 10:10 AM EDT Office Visit [facility] [address] [place] [address] [place] [address] Talon Seth DO 22 [place] [address] documented as of this encounter Results * (ABNORMAL) Comprehensive metabolic panel (11/25/2021 4:16 PM EDT) SODIUM 128(L) 133 - 146 mmol/L [facility] POTASSIUM 4.4 3.3 - 5.1 mmol/L [facility] CHLORIDE 96 96 - 108 mmol/L [facility] CO2 25 21 - 35 mmol/L [facility] BUN 10 6 - 19 mg/dL [facility] CREATININE 0.50 0.5 - 1.5 mg/dL [facility] GLUCOSE 97 70 - 99 mg/dL [facility] ALBUMIN 4.3 3.9 - 4.8 g/dL [facility] TOTAL PROTEIN 7.3 6.5 - 8.0 g/dL [facility] CALCIUM 9.2 8.4 - 10.3 mg/dL [facility] ALKALINE PHOSPHATASE 62 39 - 117 U/L [facility] TOTAL BILIRUBIN 0.2 0.0 - 1.2 mg/dL [facility] AST 25 0 - 37 U/L [facility] ALT 16 0 - 40 U/L [facility] GLOBULIN 3.0 1 - 4.8 g/dL [facility] EGFR 97 >59 mL/min/1.7 3m2 [facility] Comment:Estimated glomerular filtration rate calculated using the CKD-EPI refit equation. ANION GAP 11 10 - 20 mmol/L [facility] Blood 11/25/2021 4:16 PM EDT 11/25/2021 4:17 PM EDT us Margarita Hart NP LAB BLOOD BKR ORDERABLES Final Result Performing Organization Address City/State/[facility] Co de Phone Number [address] [address] * (ABNORMAL) CBC and differential (11/25/2021 4:16 PM EDT) WBC 6.38 4.00 - 11.00 K/uL [facility] RBC 3.98 3.72 - 5.30 M/uL [facility] HGB 12.4 11.4 - 15.9 g/dL [facility] HCT 37.2 34.2 - 46.8 % [facility] PLT 277 140 - 430 K/uL [facility] MCV 93.5 78.0 - 97.0 fL [facility] MCH 31.2 25.0 - 33.0 pg [facility] MCHC 33.3 32.0 - 36.0 g/dL [facility] RDW 13.5 11.0 - 16.0 % [facility] MPV 10.2 8.4 - 12.8 fl [facility] NRBC 0.00 0 /100 WBCs [facility] ABSOLUTE NRBC 0.00 0 K/uL [facility] DIFF METHOD Auto [facility] NEUTS 55.3 43.0 - 75.0 % [facility] LYMPHS 25.4 18.2 - 47.4 % [facility] MONOS 13.2(H) 4.00 - 11.00 % [facility] EOS 5.3 0.0 - 8.0 % [facility] BASOS 0.5 0.0 - 2.0 % [facility] Granulocytes, immature (%) 0.3 0.0 - 0.9 % [facility] ABSOLUTE NEUTS 3.53 1.80 - 7.70 K/uL [facility] ABSOLUTE LYMPHS 1.62 1.00 - 3.10 K/uL [facility] ABSOLUTE MONOS 0.84(H) 0.20 - 0.80 K/uL [facility] ABSOLUTE EOS 0.34 0.00 - 0.80 K/uL [facility] ABSOLUTE BASOS 0.03 0.00 - 0.09 K/uL [facility] Granulocytes, immature 0.02 0.00 - 0.05 K/uL [facility] Blood 11/25/2021 4:16 PM EDT 11/25/2021 4:17 PM EDT us Margarita Hart NP LAB BLOOD BKR ORDERABLES Final Result [facility] [address] [place] [address] documented in this encounter Visit Diagnoses Diagnosis [...] documented as of this encounter Care Teams Music Library Assistant Relationship Specialty Start Date End Date Harris Lennon MD [address] [place] [address], [address] [place] [address] [email or web address] PCP - General Internal Medicine 01/16/21 Kory Vogt MD [address] [place] [address] Gastroenterology 10/07/21 Xuan Ferraro DO [address] [place] [address] [email or web address] Insurance Assigned Provider 06/09/19 12/19/21 Harris Lennon MD [address] [place] [address], [address] [place] [address] [email or web address] Insurance Assigned Provider 12/17/23 Margarita Davidson RN [address] [place] [address], [address] [place] [address] [email or web address] PHCM Motor And Controls Tester 06/02/22 06/29/22 Margarita Davidson RN [address] [place] [address], [address] [place] [address] [email or web address] PHCM Motor And Controls TesterSheet Metal Mechanic 07/01/22 02/17/25 Jyoti Aviles, OT [address] [place] [address] [email or web address] Transitions Motor And Controls TesterProsthetics Assistant Therapy 12/12/2312/14/23 documented as of this encounter Additional Source Comments The information contained in this document represents components of the legal health record. It is not the complete legal health record.[facility]
--- OUTSIDE RECORDS SUMMARY | 2025-08-06 17:02 | XMS_ITS | Encounter Summary ---
Author Organization [facility] Address [address] [place] [address] Phone Care Team Providers Care Supervisor Cell Operation Name Role Phone Xuan Ferraro DO Primary Care Provider + [phone] Xuan Ferraro DO Unavailable [phone] Harris Lennon MD Primary Care Provider Kory Vogt MD Unavailable Xuan Ferraro DO Unavailable [phone] Harris Lennon MD Unavailable [phone] Margarita Davidson RN Unavailable [email or web address] Margarita Davidson RN Unavailable [email or web address] Jyoti Aviles OT Unavailable [phone] Reason for Referral * Physical Therapy (Elective) - Closed Specialty Diagnoses / Procedures Referred By Kelvin waddell Referred To Contact Physical Therapy Diagnoses Encounter for rehabilitation PELVIC FLOOR , Urinary and Fecal Incontinence Maritza Rodriguez NP Phone: tel: fax: [address] [address] Phone: tel: Referral ID Status Reason Start Date Expiration Date Visits Re quested Visits Authorized [id number] Closed 07/15/2020 09/11/2020 99 99 Encounter Details Date Type Department Care Team (Latest Contact Info) Description 07/10/2020 Transcribe Orders [facility] [address] [place] [address] Maritza Rodriguez, COLOR FINISHER [address] [facility] [place] [address] Encounter for rehabilitation (Primary Dx) Social History [...] Info) Description 04/08/2025 Procedure Pass [facility] [address] [place] [address] 09/09/2025 11:15 AM EST Appointment [facility] [address] [place] [address] Stacie Gruber PA-C [address] [place] [address] 09/27/2025 10:40 AM EST Office Visit [facility] [address] [place] [address] 3rd Floor, [address] [place] [address] Davidson Gunter MD [address] [place] [address], [address] [address] 01/30/2026 11:00 AM EDT Office Visit [address] [place] [address] Harris Lennon MD [address] [place] [address], [address] [place] [address] 02/14/2026 10:10 AM EDT Office Visit [facility] [address] [place] [address] Talon Seth DO [address] [place] [address] Scheduled Referrals Name Type Priority Associated Diagnoses Orde r Schedule Ambulatory referral to [facility] Physical Therapy Outpatient Referral Routine Encounter [...] documented as of this encounter Care Teams Supervisor Cell Operation Relationship Specialty Start Date End Date Xuan Ferraro DO [address] [place] [address] [email or web address] PCP - General 09/15/18 01/15/21 Harris Lennon MD [address] [place] [address], [address] [place] [address] [email or web address] PCP - General Internal Medicine 01/16/21 Xuan Ferraro DO [address] [place] [address] [email or web address] Insurance Assigned Provider 06/09/19 10/06/21 Kory Vogt MD [address] [address] [email or web address] Gastroenterology 10/07/21 Xuan Ferraro DO [address] [place] [address] [email or web address] Insurance Assigned Provider 06/09/19 12/19/21 Harris Lennon MD [address] [place] [address], [address] [place] [address] [email or web address] Insurance Assigned Provider 12/17/23 Margarita Davidson RN [address] [place] [address], [address] [place] [address] [email or web address] PHCM Box Spring Upholsterer 06/02/22 06/29/22 Margarita Davidson RN [address] [place] [address], [address] [place] [address] [email or web address] PHC Box Spring UpholstererLaboratory Apparatus Glass Blower 07/01/22 02/17/25 Jyoti Aviles, OT [address] [place] [address] [email or web address] Transitions Box Spring UpholstererAuxiliary Powerplant Operator Therapy 12/12/2312/14/23 documented as of this encounter Additional Source Comments The information contained in this document represents components of the legal health record. It is not the complete legal health record.[facility]
--- OUTSIDE RECORDS SUMMARY | 2025-08-06 17:02 | XMS_ITS | Encounter Summary ---
Author Organization [facility] Address [address] [place] [address] Phone Care Team Providers Care Computer Repair Engineer Name Role Phone Xuan Ferraro DO Primary Care Provider + [phone] Xuan Ferraro DO Unavailable [phone] Harris Lennon MD Primary Care Provider Kory Vogt MD Unavailable Xuan Ferraro DO Unavailable [phone] Harris Lennon MD Unavailable [phone] Margarita Davidson RN Unavailable [email or web address] Margarita Davidson RN Unavailable [email or web address] Jyoti Aviles OT Unavailable [phone] Reason for Referral * MRI/CAT Scan - Closed Specialty Diagnoses / Procedures Referred By Kelvin waddell Referred To Contact Radiology Diagnoses Weakness of lower extremity, unspecified laterality Procedures MRI Thoracic Spine John Cook DO Phone: tel: fax: mailto:[email or web address] Referral ID Status Reason Start Date Expiration Date Visits Re quested Visits Authorized [id number] Closed 05/23/2020 05/23/2021 1 1 * MRI/CAT Scan - Closed Specialty Diagnoses / Procedures Referred By Contac t Referred To Contact Radiology Diagnoses Weakness of left lower extremity Procedures MRI Lumbar Spine John Cook DO Phone: tel: fax: mailto:[email or web address] om Referral ID Status Reason Start Date Expiration Date Visits Re quested Visits Authorized [id number] Closed 05/23/2020 05/23/2021 1 1 Encounter Details Date Type Department Care Team (Late st Contact Info) Description 05/23/2020 Ancillary Orders Virtual Department [address] [place] [address] John Cook DO [address] [place] [address] [email or web address] Weakness of left lower extremity; Weakness of [...] Info) Description 04/08/2025 Procedure Pass Echo [facility] [address] [place] [address] 09/09/2025 11:15 AM EST Appointment Echo Lab [address] [place] [address] Stacie Gruber PA-C [address] [place] [address] 09/27/2025 10:40 AM EST Office Visit [facility] [address] Floor, [address] [place] [address] Davidson Gunter MD [address] [place] [address], [address] [place] [address] 01/30/2026 11:00 AM EDT Office Visit [facility] [address] [place] [address] Harris Lennon MD [address] [place] [address], [address] [place] [address] 02/14/2026 10:10 AM EDT Office Visit [facility] [address] [place] [address] Talon Seth DO [address] [place] [address] documented as of this encounter Results * [...] stenosis has improved from previous MR study [id number]. L3-4: No disc herniation. No significant canal [...] documented as of this encounter Care Teams Computer Repair Engineer Relationship Specialty Start Date End Date Xuan Ferraro DO [address] [place] [address] [email or web address] PCP - General 09/15/18 01/15/21 Harris Lennon MD [address] [place] [address], [address] [place] [address] PCP - General Internal Medicine 01/16/21 Xuan Ferraro DO [address] [place] [address] [email or web address] Insurance Assigned Provider 06/09/19 10/06/21 Kory Vogt MD [address] [place] [address] [email or web address] Gastroenterology 10/07/21 Xuan Ferraro DO [address] [place] [address] [email or web address] Insurance Assigned Provider 06/09/19 12/19/21 Harris Lennon MD [address] [place] [address], [address] [place] [address] [email or web address] Insurance Assigned Provider 12/17/23 Margarita Davidson RN [address] [place] [address], [address] [place] [address] [email or web address] Supervisory Investigative Specialist 06/02/22 06/29/22 Margarita Davidson RN [address] [place] [address], [address] [place] [address] [facility] Supervisory Investigative SpecialistPaper Reel Operator 07/01/22 02/17/25 Jyoti Aviles, OT [address] [place] [address] [email or web address] Transitions Supervisory Investigative SpecialistCrew Boat Operator Therapy 12/12/2312/14/23 documented as of this encounter Additional Source Comments The information contained in this document represents components of the legal health record. It is not the complete legal health record.[facility]
--- OUTSIDE RECORDS SUMMARY | 2025-08-06 17:02 | XMS_ITS | Encounter Summary ---
Author Organization [facility] Address [address] [place] [address] Phone Care Team Providers Care Home Health Clinical Liaison Name Role Phone Xuan Ferraro DO Primary Care Provider + [phone] Damien Lance MD Unavailable Xuan Ferraro DO Unavailable [phone] Harris Lennon MD Primary Care Provider + [phone] Kory Vogt MD Unavailable Xuan Ferraro DO Unavailable [phone] Harris Lennon MD Unavailable [phone] Margarita Davidson RN Unavailable [email or web address] Margarita Davidson RN Unavailable [email or web address] Jyoti Aviles OT Unavailable [phone] Reason for Referral * Outpatient Procedure - Closed Specialty Diagnoses / Procedures Referred By Contac t Referred To Contact Diagnoses Aortic valve replaced History of thoracic aortic aneurysm repair Aortic valve stenosis, etiology of cardiac valve disease unspecified Procedures Adult Echo TTE Quincy Lopez MD Phone: tel: fax: mailto:[email or web address] Referral ID Status Reason Start Date Expiration Date Visits Re quested Visits Authorized [id number] Closed 03/26/2019 03/25/2020 1 1 Encounter Details Date Type Department Care Team (Latest Contact Info) Description 03/26/2019 Ancillary Orders [facility] [address] [place] [address] Quincy Lopez MD [address] [place] [address] [place] [address] [email or web address] Aortic valve replaced; History of thoracic aortic [...] Description 04/08/2025 Procedure Pass Echo Lab [address] [place] [address] 09/09/2025 11:15 AM EST Appointment Echo Lab [address] [place] [address] Stacie Gruber PA-C [address] [place] [address] 09/27/2025 10:40 AM EST Office Visit [facility] [address] 3[address] Floor, [address] [place] [address] Davidson Gunter MD [address] [facility], [address] [place] [address] 01/30/2026 11:00 AM EDT [facility] Medicine [address] [place] [address] [place] [address] Harris Lennon MD [address] [facility] [place] [address] 02/14/2026 10:10 AM EDT Office Visit [facility] [address] [place] [address] Talon Seth DO [address] [place] [address] documented as of this encounter Results * [...] documented as of this encounter Care Teams Home Health Clinical Liaison Relationship Specialty Start Date End Date Xuan Ferraro DO [address] [place] [address] [email or web address] PCP - General 09/15/18 01/15/21 Harris Lennon MD [address] [place] [address], [address] [place] [address] PCP - General Internal Medicine 01/16/21 Damien Lance MD [address] [place] [address] Floor 1 [place] [address] [email or web address] Insurance Assigned Provider 07/16/17 06/09/19 Xuan Ferraro DO [address] [place] [address] [email or web address] Insurance Assigned Provider 06/09/19 10/06/21 Kory Vogt MD [address] [place] [address] [email or web address] Gastroenterology 10/07/21 Xuan Ferraro DO [address] [place] [address] [email or web address] Insurance Assigned Provider 06/09/19 12/19/21 Harris Lennon MD [address] [place] [address], [address] [place] [address] [email or web address] Insurance Assigned Provider 12/17/23 Margarita Davidson RN [address] [place] [address], [address] [place] [address] [email or web address] PHCM Cyber Incident Analyst 06/02/22 06/29/22 Margarita Davidson, RN [address] [facility], [address] [place] [address] [email or web address] PHCM Cyber Incident AnalystYarn Rewinder 07/01/22 02/17/25 Jyoti Aviles, OT [address] [place] [address] [email or web address] Transitions Cyber Incident AnalystBreast Worker Therapy 12/12/2312/14/23 documented as of this encounter Additional Source Comments The information contained in this document represents components of the legal health record. It is not the complete legal health record.[facility]
--- OUTSIDE RECORDS SUMMARY | 2025-08-06 17:02 | XMS_ITS | Encounter Summary ---
Author Organization [facility] Address [address] [place] [address] Phone Care Team Providers Care Mds Manager Name Role Phone Damien Lance MD Primary Care Provide r Xuan Ferraro DO Primary Care Provider + [phone] Damien Lance MD Unavailable [phone] Xuan Ferraro DO Unavailable [phone] Harris Lennon MD Primary Care Provider + [phone] Kory Vogt MD Unavailable Xuan Ferraro DO Unavailable [phone] Harris Lennon MD Unavailable [phone] Margarita Davidson RN Unavailable [email or web address] Margarita Davidson RN Unavailable [email or web address] Jyoti Aviles OT Unavailable [phone] Encounter Details Date Type Department Care Team (Late st Contact Info) Description 03/29/2018 Ancillary Orders [facility] [address] [place] [address] Damien Lance MD 22 [facility] Floor 1 [place] [address] [email or web address] Breast screening Social History Tobacco Use Types [...] Description 04/08/2025 Procedure Pass Echo Lab [address] [place] [address] 09/09/2025 11:15 AM EST Appointment Echo Lab [address] [place] [address] Stacie Gruber PA-C [address] [place] [address] 09/27/2025 10:40 AM EST Office Visit [facility] [address] [place] [address] 3rd Floor, [address] [place] [address] Davidson Gunter MD [address] [place] [address], [address] [place] [address] 01/30/2026 11:00 AM EDT Office Visit [facility] [address] [place] [address] [place] [address] Harris Lennon MD [address] [place] [address], [address] [place] [address] 02/14/2026 10:10 AM EDT Office Visit [facility] [address] [place] [address] [place] [address] Talon Seth DO [address] [place] [address] [email or web address] documented as of this encounter [...] There are scattered fibroglandular densities. POS - [id number] Narrative 05/11/2018 1:25 PM EDT Full-field digital [...] There are scattered fibroglandular densities. POS - [id number] Damien Lance MD IMG MG EXAMS Final [...] documented as of this encounter Care Teams Mds Manager Relationship Specialty Start Date End Date Damien Lance MD [email or web address] PCP - General Internal Medicine 07/18/17 09/14/18 Xuan Ferraro DO [address] [place] [address] [email or web address] PCP - General 09/15/18 01/15/21 Harris Lennon MD 22 [facility], [address] [place] [address] [email or web address] PCP - General Internal Medicine 01/16/21 Damien Lance MD 22 [facility] Floor 1 [place] [address] [email or web address] Insurance Assigned Provider 07/16/17 06/09/19 Xuan Ferraro DO [address] [place] [address] [email or web address] Insurance Assigned Provider 06/09/19 10/06/21 Kory Vogt MD [address] [address] [email or web address] Gastroenterology 10/07/21 Xuan Ferraro DO [address] [place] [address] [email or web address] Insurance Assigned Provider 06/09/19 12/19/21 Harris Lennon MD [address] [place] [address], [address] [place] [address] [email or web address] Insurance Assigned Provider 12/17/23 Margarita Davidson RN [address] [place] [address], [address] [place] [address] [email or web address] PHCM Leathersmith 06/02/22 06/29/22 Margarita Davidson RN [address] [place] [address], [address] [place] [address] [email or web address] PHC LeathersmithSupervisor Finishing Department 07/01/22 02/17/25 Jyoti Aviles, OT [address] [place] [address] [email or web address] Transitions LeathersmithDouble Spindle Shaper Operator Therapy 12/12/2312/14/23 documented as of this encounter Additional Source Comments The information contained in this document represents components of the legal health record. It is not the complete legal health record.[facility]
--- OUTSIDE RECORDS SUMMARY | 2025-08-06 17:02 | XMS_ITS | Encounter Summary ---
Author Organization [facility] Address [address] [place] [address] Phone Care Team Providers Care Hatch Tender Name Role Phone Xuan Ferraro DO Primary Care Provider + [phone] Xuan Ferraro DO Unavailable [phone] Harris Lennon MD Primary Care Provider Kory Vogt MD Unavailable Xuan Ferraro DO Unavailable [phone] Harris Lennon MD Unavailable [phone] Margarita Davidson RN Unavailable [email or web address] Margairta Davidson RN Unavailable [email or web address] Jyoti Aviles OT Unavailable [phone] Encounter Details Date Type Department Care Team (Late st Contact Info) Description 05/23/2020 Procedure Pass [facility], [address] [address] Social History Tobacco Use Types Packs/Day Years [...] Description 04/08/2025 Procedure Pass Echo Lab [address] [place] [address] 09/09/2025 11:15 AM EST Appointment Echo Lab [address] [place] [address] Stacie Gruber PA-C [address] [place] [address] 09/27/2025 10:40 AM EST Office Visit [facility] [address] [place] [address] 3rd Floor, [address] [place] [address] Davidson Gunter MD [address] [place] [address], [address] [place] [address] 01/30/2026 11:00 AM EDT Office Visit [facility] [place] [facility] [address] [place] [address] [place] [address] Harris Lennon MD [address] [place] [address], [address] [place] [address] 02/14/2026 10:10 AM EDT Office Visit [facility] [address] [place] [address] [place] [address] Talon Seth DO [address] [place] [address] documented as of this encounter Visit Diagnoses [...] documented as of this encounter Care Teams Hatch Tender Relationship Specialty Start Date End Date Xuan Ferraro DO [address] [place] [address] [email or web address] PCP - General 09/15/18 01/15/21 Harris Lennon MD [address] [place], [place] [address] [place] [address] PCP - General Internal Medicine 01/16/21 Xuan Ferraro DO [address] [place] [address] [email or web address] Insurance Assigned Provider 06/09/19 10/06/21 Kory Vogt MD [address] [place] [address] Gastroenterology 10/07/21 Xuan Ferraro DO [address] [place] [address] [email or web address] Insurance Assigned Provider 06/09/19 12/19/21 Harris Lennon MD [address] [place] [address], [address] [place] [address] [email or web address] Insurance Assigned Provider 12/17/23 Margarita Davidson RN [address] [place] [address], [address] [place] [address] [email or web address] PHC Materials Associate 06/02/22 06/29/22 Margarita Davidson RN [address] [place] [address], [address] [place] [address] [email or web address] PHC Materials AssociateElectrician Bus 07/01/22 02/17/25 Jyoti Aviles, OT [address] [place] [address] [email or web address] Transitions Materials AssociateRestrictive Preparation Operator Therapy 12/12/2312/14/23 documented as of this encounter Additional Source Comments The information contained in this document represents components of the legal health record. It is not the complete legal health record.[facility]
--- OUTSIDE RECORDS SUMMARY | 2025-08-06 17:02 | XMS_ITS | Encounter Summary ---
Author Organization [facility] Address [address] [place] [address] Phone Care Team Providers Care Clerk Specialist Name Role Phone Harris Lennon MD Primary Care Provider [phone] Kory Vogt MD Unavailable Harris Lennon MD Unavailable [phone] Margarita Davidson RN Unavailable [email or web address] Margarita Davidson RN Unavailable [email or web address] Jyoti Aviles OT Unavailable [phone] Encounter Details Date Type Department Care Team (Late st Contact Info) Description 12/24/2021 Procedure Pass [facility] Admitting Dept Virtual Department [address] [place] [address] Social History Tobacco Use Types Packs/Day Years [...] Description 04/08/2025 Procedure Pass Echo Lab [address] [place] [address] 09/09/2025 11:15 AM EST Appointment Echo Lab [address] [place] [address] Stacie Gruber PA-C [address] [place] [address] 09/27/2025 10:40 AM EST Office Visit [facility] [address] [place] [address] 3rd Floor, [address] [place] [address] Davidson Gunter MD [address] [place] [address], [address] [address] 01/30/2026 11:00 AM EDT Office Visit [facility] [address] [place] [address] Harris Lennon MD [address] [place] [address], [address] [place] [address] 02/14/2026 10:10 AM EDT Office Visit [facility] [address] [place] [address] [place] [address] Talon Seth DO [address] [place] [address] documented as of this encounter Visit Diagnoses [...] documented as of this encounter Care Teams Clerk Specialist Relationship Specialty Start Date End Date Harris Lennon MD [address] [place] [address], [address] [place] [address] PCP - General Internal Medicine 01/16/21 Kory Vogt MD [address] [place] [address] Gastroenterology 10/07/21 Harris Lennon MD [address] [place] [address], [address] [place] [address] Insurance Assigned Provider 12/17/23 Margarita Davidson RN [address] [place] [address], [address] [place] [address] PHC Hide Curer 06/02/22 06/29/22 Margarita Davidson RN [address] [place] [address], [address] [place] [address] PHC Hide CurerMath And Science Instructor 07/01/22 02/17/25 Jyoti Aviles, OT [address] [place] [address] [email or web address] Transitions Hide CurerNightman Therapy 12/12/2312/14/23 documented as of this encounter Additional Source Comments The information contained in this document represents components of the legal health record. It is not the complete legal health record.[facility]
--- OUTSIDE RECORDS SUMMARY | 2025-08-06 17:02 | XMS_ITS | Encounter Summary ---
Author Organization [facility] Address [address] [place] [address] Phone Care Team Providers Care Brazer Resistance Name Role Phone Harris Lennon MD Primary Care Provider [phone] Kory Vogt MD Unavailable Xuan Ferraro DO Unavailable [phone] Harris Lennon MD Unavailable [phone] Margarita Davidson RN Unavailable [email or web address] Margarita Davidson RN Unavailable [email or web address] Jyoti Aviles OT Unavailable [phone] Encounter Details Date Type Department Care Team (Latest Contact Info) Description 10/26/2021 Transcribe Orders [facility] Phleb Earline [address] [address] Margarita Hart, NIKO [address] [place] [address] Fecal smearing (Primary Dx); Diarrhea, unspecified type; [...] Info) Description 04/08/2025 Procedure Pass [facility] [address] [place] [address] 09/09/2025 11:15 AM EST Appointment Echo Lab [address] [place] [address] Stacie Gruber PA-C [address] [place] [address] 09/27/2025 10:40 AM EST Office Visit [facility] [address] [place] [address] 3rd Floor, [address] [place] [address] Davidson Gunter MD [address] [place] [address], [address] [place] [address] 01/30/2026 11:00 AM EDT Office Visit [facility] [address] [place] [address] [place] [address] Harris Lennon MD [address] [place] [address], [address] [place] [address] 02/14/2026 10:10 AM EDT Office Visit [facility] [address] [place] [address] [place] [address] Talon Seth DO [address] [place] [address] documented as of this encounter Results * (ABNORMAL) Stool fat/fiber exam (10/27/2021 8:35 AM EST) FATTY ACID INCREASED( A) NORMAL [facility] Neutral Fat, stool INCREASED( A) NORMAL [facility] Stool (Stool) 10/27/2021 8:3 5 AM EST 10/27/2021 9:59 AM EST Margarita Hart NP BODY FLUIDS AND STOOLS OR DERABLES Final Result Performing Organization Address [facility]/ZIP Co de Phone Number [address] [address] * Pancreatic Elastase, Stool (10/27/2021 8:35 AM EST) Pathologist [facility] Pancreatic Elastase, Feces 488 >200 (Normal) mcg/g [facility] Stool (Stool) 10/27/2021 8:3 5 AM EST 10/27/2021 9:59 AM EST Margarita Hart NP BODY FLUIDS AND STOOLS OR DERABLES Final Result Performing Organization Address [facility] de Phone Number [facility] [address] [place] [address] * C-Reactive Protein (10/26/2021 12:00 PM EST) Pathologist [facility] C REACTIVE PROTEIN 3.8 0.0 - 4.0 mg/L [facility] Blood 10/26/2021 12:0 0 PM EST 10/26/2021 12:05 PM EST Margarita Hart NP LAB BLOOD BKR ORDERABLES Final Result Performing Organization Address [facility] de Phone Number [address] [address] * (ABNORMAL) Comprehensive metabolic panel (10/26/2021 12:00 PM EST) SODIUM 135 133 - 146 mmol/L [facility] POTASSIUM 4.8 3.3 - 5.1 mmol/L [facility] CHLORIDE 101 96 - 108 mmol/L [facility] CO2 25 21 - 35 mmol/L [facility] BUN 12 6 - 19 mg/dL [facility] CREATININE 0.60 0.5 - 1.5 mg/dL [facility] GLUCOSE 109(H) 70 - 99 mg/dL [facility] ALBUMIN 4.5 3.9 - 4.8 g/dL [facility] TOTAL PROTEIN 7.3 6.5 - 8.0 g/dL [facility] CALCIUM 9.2 8.4 - 10.3 mg/dL [facility] ALKALINE PHOSPHATASE 64 39 - 117 U/L [facility] TOTAL BILIRUBIN 0.3 0.0 - 1.2 mg/dL [facility] AST 36 0 - 37 U/L [facility] ALT 21 0 - 40 U/L [facility] GLOBULIN 2.8 1 - 4.8 g/dL [facility] EGFR 92 >59 mL/min/1.7 3m2 [facility] Comment:Estimated glomerular filtration rate calculated using the CKD-EPI refit equation. ANION GAP 14 10 - 20 mmol/L [facility] Blood 10/26/2021 12:0 0 PM EST 10/26/2021 12:05 PM EST us Margarita Hart NP LAB BLOOD BKR ORDERABLES Final Result Performing Organization Address City/State/[facility] Co de Phone Number [facility] [address] [place] [address] * (ABNORMAL) CBC (10/26/2021 12:00 PM EST) WBC 6.17 4.00 - 11.00 K/uL [facility] RBC 4.18 3.72 - 5.30 M/uL [facility] HGB 12.7 11.4 - 15.9 g/dL [facility] HCT 40.1 34.2 - 46.8 % [facility] PLT 250 140 - 430 K/uL [facility] MCV 95.9 78.0 - 97.0 fL [facility] MCH 30.4 25.0 - 33.0 pg [facility] MCHC 31.7(L) 32.0 - 36.0 g/dL [facility] RDW 13.6 11.0 - 16.0 % [facility] MPV 10.2 8.4 - 12.8 fl [facility] NRBC 0.00 0 /100 WBCs [facility] ABSOLUTE NRBC 0.00 0 K/uL [facility] Blood 10/26/2021 12:0 0 PM EST 10/26/2021 12:05 PM EST Margarita Hart NP LAB BLOOD BKR ORDERABLES Final Result Performing Organization Address [facility] Co de Phone Number [address] [address] * Immunoglobulin A (10/26/2021 12:00 PM EST) Pathologist [facility] IgA 164 70 - 400 mg/dL [facility] Blood 10/26/2021 12:0 0 PM EST 10/26/2021 12:05 PM EST Margarita Hart NP LAB BLOOD BKR ORDERABLES Final Result Performing Organization Address [facility] de Phone Number [address] [address] * Tissue transglutaminase IgA (10/26/2021 12:00 PM EST) TTG IGA ANTIBODY <1.2 <4.0 (Negative) U/mL [facility] Blood 10/26/2021 12:0 0 PM EST 10/26/2021 12:06 PM EST Margarita Hart NP LAB BLOOD BKR ORDERABLES Final Result Performing Organization Address [facility] de Phone Number [facility] [address] [place] [address] documented in this encounter Visit Diagnoses Diagnosis [...] documented as of this encounter Care Teams Brazer Resistance Relationship Specialty Start Date End Date Harris Lennon MD [address] [place] [address], [address] [place] [address] PCP - General Internal Medicine 01/16/21 Kory Vogt MD [address] [place] [address] Gastroenterology 10/07/21 Xuan Ferraro DO [address] [place] [address] [email or web address] Insurance Assigned Provider 06/09/19 12/19/21 Harris Lennon MD [address] [place] [address] Insurance Assigned Provider 12/17/23 Margarita Davidson RN [address] [place] [address], [address] [address] [email or web address] PHCM Jukebox Routeman 06/02/22 06/29/22 Margarita Davidson RN [address] [place] [address], [address] [address] [email or web address] PHC Jukebox RoutemanPusher Operator 07/01/22 02/17/25 Jyoti Aviles, OT [address] [place] [address] Transitions Jukebox RoutemanArmhole Sewer Therapy 12/12/2312/14/23 documented as of this encounter Additional Source Comments The information contained in this document represents components of the legal health record. It is not the complete legal health record.[facility]
--- OUTSIDE RECORDS SUMMARY | 2025-08-06 17:02 | XMS_ITS | Encounter Summary ---
Author Organization [facility] Address [address] [place] [address] Phone Care Team Providers Care Coal Carrier Name Role Phone Harris Lennon MD Primary Care Provider [phone] Kory Vogt MD Unavailable Harris Lennon MD Unavailable [phone] Margarita Davidson RN Unavailable [email or web address] Jyoti Aviles OT Unavailable [phone] Encounter Details Date Type Department Care Team (Late st Contact Info) Description 12/09/2023 Procedure Pass [facility], [address] [address] Social History Tobacco Use Types Packs/Day Years [...] 9:00 PM EDT Bethany Camejo, MARIZOL * [place] Suicide Severity Rating Scale (Screener/Recent Self-Report) Question Answer Date of Assessment Author 1. Wish to be (Past 1 Month) No 12/09/2023 9:00 PM EDT Barb Camejo RN 2. Non-Specific Active Suici reese Thoughts (Past 1 Month) No 12/09/2023 9:00 PM EDT Moi Camejo RN 6. Suicidal Behavior (Lifetime) No 9:00 PM EDT Bethany Camejo, MARIZOL documented as of this encounter Plan of Treatment Upcoming Encounters Date Type Department Care Team (Late st Contact Info) Description 04/08/2025 Procedure Pass [facility] [address] [place] [address] 09/09/2025 11:15 AM EST Appointment [facility] [address] [place] [address] Stacie Gruber PA-C [address] [place] [address] 09/27/2025 10:40 AM EST Office Visit [facility] [address] [place] [address] 3rd Floor, [address] [place] [address] Davidson Gunter MD 22 [facility], [address] [place] [address] 01/30/2026 11:00 AM EDT Office Visit [facility] [address] [place] [address] [place] [address] Harris Lennon MD [address] [place] [address], [address] [place] [address] 02/14/2026 10:10 AM EDT Office Visit [facility] [address] [place] [address] Talon Seth DO 22 [place] [address] documented as of this encounter Visit Diagnoses Not on filedocumented in this encounter Additional Health Concerns Assessment Noted Time PHQ-9 Depression Total Score: 15 018 2:17 PM EST PHQ-2 Depression Total Score: 0 06/22/20 23 1:25 PM EDT documented as of this encounter Care Teams Coal Carrier Relationship Specialty Start Date End Date Harris Lennon MD [address] [place] [address], [address] [place] [address] PCP - General Internal Medicine 01/16/21 Kory Vogt MD [address] [place] [address] Gastroenterology 10/07/21 Harris Lennon MD [address] [place] [address], [address] [place] [address] Insurance Assigned Provider 12/17/23 Margarita Davidson, MARIZOL [address] [place] [address] [email or web address] PHCM Music HistorianDirector Of Religious Activities 07/01/22 02/17/25 Jyoti Aviles, OT [address] [place] [address] [email or web address] Transitions Music HistorianLaundromat Manager Therapy 12/12/2312/14/23 documented as of this encounter Additional Source Comments The information contained in this document represents components of the legal health record. It is not the complete legal health record.[facility]
--- OUTSIDE RECORDS SUMMARY | 2025-08-06 17:02 | XMS_ITS | Encounter Summary ---
Author Organization [facility] Address [address] [place] [address] Phone Care Team Providers Care Cytologist Name Role Phone Xuan Ferraro DO Primary Care Provider + [phone] Xuan Ferraro DO Unavailable [phone] Harris Lennon MD Primary Care Provider Kory Vogt MD Unavailable Xuan eFrraro DO Unavailable [phone] Harris Lennon MD Unavailable [phone] Margarita Davidson RN Unavailable [email or web address] Margarita Davidson RN Unavailable [email or web address] Jyoti Aviles OT Unavailable [phone] Reason for Referral * MRI/CAT Scan - Closed Specialty Diagnoses / Procedures Referred By Kelvin t Referred To Contact Radiology Diagnoses Low back pain, unspecified back pain laterality, unspecified chronicity, unspecified whether sciatica present Procedures CT Lumbar Spine John Cook DO Phone: tel: fax: [email or web address] Referral ID Status Reason Start Date Expiration Date Visits Re quested Visits Authorized [id number] Closed 07/02/2020 07/02/2021 1 1 Encounter Details Date Type Department Care Team (Latest Contact Info) Description 07/02/2020 Transcribe Orders Virtual Department 30 [place] [address] John Cook DO [address] [place] [address] [email or web address] Low back pain, unspecified back pain laterality, [...] Description 04/08/2025 Procedure Pass [facility] [address] [place] [address] 09/09/2025 11:15 AM EST Appointment [facility] [address] [place] [address] Stacie Gruber PA-C [address] [place] [address] 09/27/2025 10:40 AM EST Office Visit [facility] [address] [place] [address] 3rd Floor, [address] [place] [address] Davidson Gunter MD [address] [place] [address] 01/30/2026 11:00 AM EDT Office Visit [facility] [address] [place] [address] [place] [address] Harris Lennon MD 22 [facility], [address] [place] [address] 02/14/2026 10:10 AM EDT Office Visit [facility] [address] [place] [address] Talon Seth DO 22 [place] [address] documented as of this encounter Results * [...] documented as of this encounter Care Teams Cytologist Relationship Specialty Start Date End Date Xuan Ferraro DO [address] [place] [address] [email or web address] PCP - General 09/15/18 01/15/21 Harris Lennon MD [address] [place], [place] [address] [place] [address] [email or web address] PCP - General Internal Medicine 01/16/21 Xuan Ferraro DO [address] [place] [email or web address] Insurance Assigned Provider 06/09/19 10/06/21 Kory Vogt MD [address] [place] [address] Gastroenterology 10/07/21 Xuan Ferraro DO [address] [place] [address] [email or web address] Insurance Assigned Provider 06/09/19 12/19/21 Harris Lennon MD [address] [place] [address], [address] [place] [address] [email or web address] Insurance Assigned Provider 12/17/23 Margarita Davidson RN [address] [place] [address], [address] [place] [address] [email or web address] PHCM Senior Net Engineer 06/02/22 06/29/22 Margarita Davidson RN [address] [place] [address], [address] [place] [address] [email or web address] PHC Senior Net EngineerSlubber Frame Changer 07/01/22 02/17/25 Jyoti Aviles, OT [address] [place] [address] [email or web address] Transitions Senior Net EngineerProduct Promoter Sales Person Therapy 12/12/2312/14/23 documented as of this encounter Additional Source Comments The information contained in this document represents components of the legal health record. It is not the complete legal health record.[facility]
--- OUTSIDE RECORDS SUMMARY | 2025-08-06 17:03 | XMS_ITS | Encounter Summary ---
Author Organization [facility] Address [address] [place] [address] Phone Care Team Providers Care Learning Support Resource Room Teacher Name Role Phone Xuan Ferraro DO Unavailable [phone] Harris Lennon MD Primary Care Provider [phone] Kory Vogt MD Unavailable Xuan Ferraro DO Unavailable [phone] Harris Lennon MD Unavailable [phone] Margarita Davidson RN Unavailable [email or web address] Margarita Davidson RN Unavailable [email or web address] Jyoti Aviles OT Unavailable [phone] Encounter Details Date Type Department Care Team (Latest Contact Info) Description 07/28/2021 Transcribe Orders Virtual Department 30 [place] [address] Harris Lennon MD 22 [facility], [address] [place] [address] [email or web address] Breast screening (Primary Dx) Social [...] Info) Description 04/08/2025 Procedure Pass [facility] [address] [place] [address] 09/09/2025 11:15 AM EST Appointment [facility] [address] [place] [address] Stacie Gruber PA-C [address] [place] [address] 09/27/2025 10:40 AM EST Office Visit [facility] [address] [place] [address] 3rd Floor, [address] [place] [address] Davidson Gunter MD [address] [place] [address], [address] [place] [address] 01/30/2026 11:00 AM EDT Office Visit [facility] [place] [facility] [address] [place] [address] [place] [address] Harris Lennon MD [address] [place] [address], [address] [place] [address] 02/14/2026 10:10 AM EDT Office Visit [facility] [address] [place] [address] Talon Seth DO 22 [place] [address] documented as of this encounter Results * [...] documented as of this encounter Care Teams Learning Support Resource Room Teacher Relationship Specialty Start Date End Date Harris Lennon MD [address] [place] [address], [address] [place] [address] [email or web address] PCP - General Internal Medicine 01/16/21 Xuan Ferraro DO 9 [place] [address] [email or web address] Insurance Assigned Provider 06/09/19 10/06/21 Kory Vogt MD [address] [place] [address] Gastroenterology 10/07/21 Xuan Ferraro DO 9 [place] [address] [email or web address] Insurance Assigned Provider 06/09/19 12/19/21 Harris Lennon MD [address] [place] [address], [address] [place] [address] [email or web address] Insurance Assigned Provider 12/17/23 Margarita Davidson RN 22 [facility], [address] [place] [address] PHCM Naval Designer 06/02/22 06/29/22 Margarita Davidson RN [address] [place] [address], [address] [place] [address] [email or web address] PHC Naval DesignerTable And Desk Finisher 07/01/22 02/17/25 Jyoti Aviles, OT [address] [place] [address] [email or web address] Transitions Naval DesignerGameplay Programmer Therapy 12/12/2312/14/23 documented as of this encounter Additional Source Comments The information contained in this document represents components of the legal health record. It is not the complete legal health record.[facility]
--- OUTSIDE RECORDS SUMMARY | 2025-08-06 17:03 | XMS_ITS | Encounter Summary ---
Author Organization [facility] Address [address] [place] [address] Phone Care Team Providers Care Detail Drafter Name Role Phone Xuan Ferraro DO Unavailable [phone] Harris Lennon MD Primary Care Provider [phone] Kory Vogt MD Unavailable Xuan Ferraro DO Unavailable [phone] Harris Lennon MD Unavailable [phone] Margarita Davidson RN Unavailable [email or web address] Margarita Davidson RN Unavailable [email or web address] Jyoti Aviles OT Unavailable [phone] Encounter Details Date Type Department Care Team (Late st Contact Info) Description 08/24/2021 Ancillary Orders [facility],Outside Imaging 30 [place], [place] [id number] System, Provider Not In, [facility] [address] [address] Social History Tobacco Use Types Packs/Day Years [...] Description 04/08/2025 Procedure Pass [facility] Lab [address] [place] [address] 09/09/2025 11:15 AM EST Appointment Echo Lab [address] [place] [address] Stacie Gruber PA-C [address] [place] [address] 09/27/2025 10:40 AM EST Office Visit [facility] [address] [place] [address] 3rd Floor, [address] [place] [address] Davidson Gunter MD [address] [place] [address], [address] [address] 01/30/2026 11:00 AM EDT Office Visit [facility] [place] [facility] [address] [place] [address] Harris Lennon MD [address] [place] [address], [address] [place] [address] 02/14/2026 10:10 AM EDT Office Visit [facility] [address] [place] [address] [place] [address] Talon Seth DO [address] [place] [address] documented as of this encounter Results * [...] documented as of this encounter Care Teams Detail Drafter Relationship Specialty Start Date End Date Harris Lennon MD [address] [place] [address], [address] [place] [address] PCP - General Internal Medicine 01/16/21 Xuan Ferraro DO [address] [place] [address] [email or web address] Insurance Assigned Provider 06/09/19 10/06/21 Kory Vogt MD [address] [address] Gastroenterology 10/07/21 Xuan Ferraro DO [address] [place] [address] [email or web address] Insurance Assigned Provider 06/09/19 12/19/21 Harris Lennon MD [address] [place] [address], [address] [place] [address] [email or web address] Insurance Assigned Provider 12/17/23 Margarita Davidson RN 22 [facility], [address] [place] [address] [email or web address] PHCM Sales Representative Facility Services 06/02/22 06/29/22 Margarita Davidson RN [address] [place] [address], [address] [place] [address] [email or web address] PHC Sales Representative Facility ServicesNetwork Support Manager 07/01/22 02/17/25 Jyoti Aviles, OT [address] [place] [address] [email or web address] Transitions Sales Representative Facility ServicesAssembly Associate Therapy 12/12/2312/14/23 documented as of this encounter Additional Source Comments The information contained in this document represents components of the legal health record. It is not the complete legal health record.[facility]
--- OUTSIDE RECORDS SUMMARY | 2025-08-06 17:03 | XMS_ITS | Encounter Summary ---
Author Organization [facility] Address [address] [place] [address] Phone Care Team Providers Care Greenbelt Name Role Phone Harris Lennon MD Primary Care Provider [phone] Kory Vogt MD Unavailable Harris Lennon MD Unavailable [phone] Margarita Davidson RN Unavailable [email or web address] Jyoti Aviles OT Unavailable [phone] Encounter Details Date Type Department Care Team (Late st Contact Info) Description 02/08/2023 Procedure Pass Echo Lab [place] [place] [address] Social History Tobacco Use Types Packs/Day Years [...] Description 04/08/2025 Procedure Pass Echo Lab [address] [place] [address] 09/09/2025 11:15 AM EST Appointment Echo Lab [address] [place] [address] Stacie Gruber PA-C [address] [place] [address] 09/27/2025 10:40 AM EST Office Visit [facility] [address] [place] [address] 3rd Floor, [address] [place] [address] Davidson Gunter MD [address] [place] [address], [address] [address] 01/30/2026 11:00 AM EDT Office Visit [facility] [place] [facility] [address] [place] [address] Harris Lennon MD [address] [place] [address], [address] [place] [address] 02/14/2026 10:10 AM EDT Office Visit [facility] [address] [place] [address] [place] [address] Talon Seth DO [address] [place] [address] documented as of this encounter Visit Diagnoses Not on filedocumented in this encounter Additional Health Concerns Infection Onset Date Last Indicated Resolved Time CoV-Risk 11/16/2023 11/16/2023 11/27/2023 1:21 AM EDT Assessment Noted Time PHQ-9 Depression Total Score: 15 018 2:17 PM EST PHQ-2 Depression Total Score: 0 06/22/20 23 1:25 PM EDT documented as of this encounter Care Teams Greenbelt Relationship Specialty Start Date End Date Harris Lennon MD [address] [place] [address], [address] [place] [address] PCP - General Internal Medicine 01/16/21 Kory Vogt MD [address] [address] Gastroenterology 10/07/21 Harris Lennon MD [address] [place] [address], [address] [place] [address] Insurance Assigned Provider 12/17/23 Margarita Davidson, RN [address] [place] [address], [address] [place] [address] PHCM Snap ShearerLine Runner 07/01/22 02/17/25 Jyoti Aviles, OT [address] [place] [address] Transitions Snap ShearerDirector Informatics Therapy 12/12/2312/14/23 documented as of this encounter Additional Source Comments The information contained in this document represents components of the legal health record. It is not the complete legal health record.[facility]
== END 2025-08-06 13:35 | disposition home or self-care (01) ==
LOC: HO.ACS 13:14
PROVIDERS: PCP Internal Medicine; Visit Provider Internal Medicine Medical Oncology
DX: Z79.01 Long term (current) use of anticoagulants (principal)

== ENCOUNTER → 2025-08-06 13:14 | Outpatient (BNVA) | payer MEDICARE, SELFPAY | PROVIDERS: PCP Internal Medicine; Visit Provider Internal Medicine Medical Oncology | DX: I48.0 Paroxysmal atrial fibrillation (principal); Z51.81 Encounter for therapeutic drug level monitoring; Z79.01 Long term (current) use of anticoagulants | CPT/HCPCS: 85610; 99211 ==

== ENCOUNTER 2025-08-19 11:08 | Outpatient (AMB) | payer MEDICARE, SELFPAY ==
[2025-08-19 11:16] LABS: Prothrombin Time Whole Bld POC 30.2 sec (11.1-13.5); ~PT, ~INR - Anti Coag Clinic 2.5 (0.9-1.1)
--- NOTE | 2025-08-19 11:21 | MHC.OFFVISCO ---
Intake Intake Visit Reasons: Anticoagulation Allergies memantine Allergy (Severe, Verified 08/19/25 11:11) RAGE nitrofurantoin Allergy (Intermediate, Verified 08/19/25 11:11) RASH oseltamivir (From Tamiflu) Allergy (Intermediate, Verified 08/19/25 11:11) RASH oxycodone (From PERCOCET) Allergy (Unknown, Verified 08/19/25 11:11) UNKNOWN Penicillins (PENICILLINS) Allergy (Unknown, Verified 08/19/25 11:11) UNKNOWN Sulfa (Sulfonamide Antibiotics) (SULFA (SULFONAMIDE ANTIBIOTICS)) Allergy (Unknown, Verified 08/19/25 11:11) UNKNOWN Medication List - Last Reconciled 08/19/25 by Criselda Marshall RN acetaminophen (Tylenol Extra Strength) 1,000 mg (2 x 500 mg) PO QID PRN albuterol sulfate 90 mcg/actuation 2 puffs inhalation Q4-6H PRN alendronate 70 mg PO QWEEK ascorbic acid (vitamin C) (Vitamin C) 500 mg PO TID atorvastatin 40 mg PO DAILY azithromycin 500 mg PO ONCE PRN biotin 5,000 mcg PO DAILY calcium carbonate-vitamin D3 600 mg-12.5 mcg (500 unit) (Calcium with Vit D3) calcium 1200, vit d 25mcg cetirizine 10 mg PO DAILY PRN Held on 12/29/23. Instructions: Doctor's Order cholecalciferol (vitamin D3) 250 McG DAILY PO; clotrimazole-betamethasone 1-0.05 % 1 appl topical BID Held on 12/29/23. Instructions: Doctor's Order cranberry fruit concentrate (Azo Cranberry) PO BID docusate sodium 100 mg PO BID estradiol 0.01%(0.1mg/gram) grams vaginal 2XW ezetimibe 10 mg PO DAILY Held on 12/29/23. Instructions: Doctor's Order fluticasone propion-salmeterol 500-50 mcg/dose (Advair Diskus) 1 inh inhalation BID inhalational spacing device ([facility] spacer) As directed losartan 25 mg PO DAILY magnesium oxide 500 mg PO DAILY mecobalamin (vitamin B12) mcg PO DAILY methenamine hippurate 1 g PO BID metoprolol succinate ER 75 mg PO DAILY mirtazapine 7.5 mg PO BEDTIME gaqcphrh-ggw-jbqp-FA-vit K-lut (Multivitamin Women 50 Plus) PO psyllium husk (Metamucil) 0.4 grams PO DAILY Saccharomyces boulardii (Daily Probiotic (S. boulardii)) PO simethicone (Gas Relief (simethicone)) PO topiramate 50 mg PO DAILY Held on 12/29/23. Instructions: Doctor's Order vibegron (Gemtesa) 75 mg PO DAILY warfarin See Protocol 7.5mg x2days/ 5mg x5days; Nursing Note INR: 2.5 in therapeutic range 2-3 Medications and supplements reviewed No changes in health, diet, medications, or supplements, Denies any signs and symptoms of bleeding or bruising or clotting. Bleeding, bruising, clotting discussed Nutritional guidance given Dose: 2.5mg X 4 days and 5mg X 3 days (M/W/F) F/U INR: 3 weeks Patient verbalizes understanding of instructions given Coding Level of Care Code Est Patient Level 1 Diagnoses Current use of anticoagulant therapy Z79.01 Assessment & Plan Assessment & Plan (1) Current use of anticoagulant therapy: Code(s): Z79.01 - care home (current) use of anticoagulants Category: Medical
== END 2025-08-19 11:35 | disposition home or self-care (01) ==
PROVIDERS: PCP Internal Medicine; Visit Provider Internal Medicine
DX: Z79.01 Long term (current) use of anticoagulants (principal)

== ENCOUNTER → 2025-08-19 11:08 | Outpatient (BNVA) | payer MEDICARE, SELFPAY | PROVIDERS: PCP Internal Medicine; Visit Provider Internal Medicine | DX: I48.0 Paroxysmal atrial fibrillation (principal); Z79.01 Long term (current) use of anticoagulants; Z51.81 Encounter for therapeutic drug level monitoring | CPT/HCPCS: 85610; 99211 ==

== ENCOUNTER 2025-09-10 10:21 | Outpatient (AMB) | payer MEDICARE, SELFPAY ==
--- OUTSIDE RECORDS SUMMARY | 2022-08-21 12:20 | XMS_ITS | Encounter Summary ---
Author Organization [facility] Address [address] [place] [address] Phone Care Team Providers Care Application Support Engineer Name Role Phone Harris Lennon MD Primary Care Provider +1- [phone] Kory Vogt MD Unavailable Margarita Davidson RN Unavailable [email or web address] Encounter Details Date Type Department Care Team (Late st Contact Info) Description 08/21/2022 12:20 PM [facility] Hospital Encounter [facility] [address] [place] [address] [phone] Juliana Troy, [address], [facility] [address] [place] [address] [email or web address] Social History Tobacco Use Types Packs/Day Years Used Date Smoking Tobacco: Former Cigarettes Q uit: 1972 Smokeless Tobacco: Former Quit: 1968 Alcohol Use Standard Drinks/Week Comments No 0 (1 standard drink = 0.6 oz pur e alcohol) Education Answer Date Recorded Are you interested in more education? Not on chetan e 01/07/2023 Are you concerned about learning? Not on file 01/07/2023 No 01/07/2023 No 01/07/2023 Digital Access Answer Date Recorded No 02/01/2023 No 02/01/2023 Reliable internet access at home? Not on file 02/01/2023 Device with a working camera? Not on file Intimate Partner Violence Answer Date R ecorded Are you denied basic needs s uch as food, clothing, or medical care? No 09/06/2024 In the past 12 months have y ou been in a relationship with a person who hurts, threatens, or tries to control you? No 09/06/2024 Are you denied basic needs s uch as food, clothing, or medical care? No 09/06/2024 In the past 12 months have y ou been in a relationship with a person who hurts, threatens, or tries to control you? 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 Not on file Not on file Not on file documented as of this encounter Plan of Treatment Upcoming Encounters Date Type Department Care Team (Late st Contact Info) Description 09/19/2025 1:45 PM EST Office Visit [facility] [address] [place] [address] Chan Cruz MD [address] [place] [address] Orthopedics & Sports Medicine, [place] [address] 10/01/2025 1:00 PM EST Office Visit [facility] [address] [place] [address] 3rd Floor, [address] [place] [address] Stacie Gruber PA-C [address] [place] [address] 01/30/2026 11:00 AM EDT Office Visit [facility] [address] [place] [address] Harris Lennon MD [address] [facility], [address] [place] [address] 02/14/2026 10:10 AM EDT Office Visit [facility] Endocrinology [address] [place] [address] Talon Seth DO [address] [place] [address] [email or web address] documented as of this encounter Procedures Procedure Name Priority Date/Time Associated Diagnosis Comments XR CHEST PA AND LATERAL 2 VIEWS Routine 08/21/2022 12:31 PM EST COPD with acute exacerbation documented in this encounter Results * XR CHEST PA AND LATERAL 2 VIEWS (08/21/2022 12:31 PM EST) Anatomical Region Laterality Modality Chest Computed Radiogr aphy 08/21/2022 12:5 3 PM EST Impressions 08/21/2022 1:06 PM EST No acute abnormality. ATTESTATION: I, Aaron Devine as teaching physician, have reviewed the images for this case and if necessary edited the report originally created by Selena Franklin. Narrative 08/21/2022 1:06 PM EST XR CHEST PA AND LATERAL 2 VIEWS COMPARISON: XR CHEST PORTABLE FINDINGS: Devices/Tubes/Lines: Status post aVR and left atrial appendage clip. Lungs: The lungs are clear. No focal consolidation or pulmonary edema. Pleura: No pleural effusion or pneumothorax. Heart/Mediastinum: Expected post-surgical changes following median sternotomy and cardiac surgery. Bones/Soft Tissues: Surgical clips in the chest wall project over the right apex. Biconvex thoracolumbar scoliosis, dextro scoliosis of the thoracic spine and levoscoliosis in the thoracolumbar junction, is unchanged. Fusion hardware in the lumbar spine is unchanged. Procedure Note Aaron Devine MBBS - 08/21/2022 XR CHEST PA AND LATERAL 2 VIEWS COMPARISON: XR CHEST PORTABLE FINDINGS: Devices/Tubes/Lines: Status post aVR and left atrial appendage clip. Lungs: The lungs are clear. No focal consolidation or pulmonary edema. Pleura: No pleural effusion or pneumothorax. Heart/Mediastinum: Expected post-surgical changes following mediansternotomy and cardiac surgery. Bones/Soft Tissues: Surgical clips in the chest wall project over theright apex. Biconvex thoracolumbar scoliosis, dextro scoliosis of thethoracic spine and levoscoliosis in the thoracolumbar junction, isunchanged. Fusion hardware in the lumbar spine is unchanged. IMPRESSION: No acute abnormality. ATTESTATION: I, Aaron Devine as teaching physician, have reviewed theimages for this case and if necessary edited the report originally createdby Selena Franklin. Juliana Wildajarad HooverWoodrow CST IMG XR CHEST Final Result documented in this encounter Visit Diagnoses Not on filedocumented in this encounter Additional Health Concerns Infection Onset Date Last Indicated Resolved Time CoV-Risk 08/21/2022 08/21/2022 09/01/2022 1:23 AM EST CoV-Risk 11/16/2023 11/16/2023 11/27/2023 1:21 AM EDT Assessment Noted Time PHQ-9 Depression Total Score: 15 018 2:17 PM EST PHQ-2 Depression Total Score: 0 10/07/19 22 2:55 PM EST documented as of this encounter Care Teams Application Support Engineer Relationship Specialty Start Date End Date Harris Lennon MD [address] [place] [address], [address] [place] [address] [email or web address] PCP - General Internal Medicine 01/16/21 Kory Vogt MD [address] [place] [address] Gastroenterology 10/07/21 Margarita Davidson RN [address] [place] [address] PHCM Taxi Driver SupervisorMarketing Summer Intern 07/01/22 documented as of this encounter Additional Source Comments The information contained in this document represents components of the legal health record. It is not the complete legal health record.[facility]
--- OUTSIDE RECORDS SUMMARY | 2025-09-09 10:51 | XMS_ITS | Encounter Summary ---
Author Organization [facility] Address [address] [place] [address] Phone Care Team Providers Care Director Plans Name Role Phone Harris Lennon MD Primary Care Provider [phone] Kory Vogt MD Unavailable Harris Lennon MD Unavailable [phone] Reason for Referral * Outpatient Procedure - Closed Specialty Diagnoses / Procedures Referred By Contac bairon Referred To Contact Diagnoses Presence of prosthetic heart valve Procedures Adult Echo TTE Stacie Gruber PA-C [address] [place] [address] Phone: tel: fax: [email or web address]:[email or web address] Referral ID Status Reason Start Date Expiration Date Visits Re quested Visits Authorized [id number] Closed 04/08/2025 1 1 Reason for Visit * Outpatient Procedure - Closed Specialty Diagnoses / Procedures Referred By Kelvin waddell Referred To Contact Diagnoses Presence of prosthetic heart valve Procedures Adult Echo TTE Stacie Gruber PA-C [address] [place] [address] Phone: tel: fax: mailto:[email or web address] Referral ID Status Reason Start Date Expiration Date Visits Re quested Visits Authorized [id number] Closed 04/08/2025 1 1 Encounter Details Date Type Department Care Team (Latest Contact Info) Description 09/09/2025 10:51 AM EST - 09/09/2025 11:59 PM EST Hospital Encounter [facility] [address] [place] [address] Stacie Gruber, PACony [address] [place] [address] [email or web address] Arrived Discharge Disposition: Home or Self Care Social History Tobacco Use Types Packs/Day Years [...] Reading Time Taken Comments Blood Pressure 136/74 09/09/2025 10:51 AM EST Pulse - - Temperature - - Respiratory Rate - - Oxygen Saturation - - Inhaled Oxygen Concentration - - Weight 68.9 kg (151 lb 14.4 oz) 025 10:51 AM EST Height 154.9 cm (5' 0.98 ) 09/09/2025 1 0:51 AM EST Body Mass Index 28.72 09/09/2025 10:51 AM EST documented in this encounter Medications at Time of Discharge acetaminophen (TYLENOL) 650 MG CR tabletIndications :Spinal stenosis of lumbar region with neurogenic claudication Take 2 tablets (1,300 mg total) by mouth 2 (two) times a day as needed for pain (specific location in comments). 3 albuterol 90 mcg/actuation inhaler Inhale 2 puffs into the lungs every 6 (six) hours as needed for wheezing. 6.7 g 4 alendronate (FOSAMAX) 70 MG tabletIndications :Other osteoporosis without current pathological fracture Take 1 tablet (70 mg total) by mouth every 7 days. Take in the morning with a full glass of water, on an empty stomach, and do not take anything else by mouth or lie down for the next 30 min. 12 tablet 3 5 ascorbic acid, vitamin C, (VITAMIN C) 500 MG tablet Take 1,000 mg by mouth daily. atorvastatin (LIPITOR) 40 MG tabletIndications :Hypercholesterol emia Take 1 tablet (40 mg total) by mouth daily. 90 tablet 1 5 azithromycin (ZITHROMAX) 250 MG tablet TAKE 2 TABLETS BY MOUTH 1 HOUR BEFORE APPOINTMENT 4 biotin 2,500 mcg Cap Take 5,000 mcg by mouth. calcium carbonate/vitamin D3 (CALCIUM 600 + D,3, ORAL) Take 2 capsules by mouth daily. Ca-1200mg D3-1000iu cholecalciferol (VITAMIN D3) 25 MCG (1,000 unit) tablet Take 1,000 Units by mouth daily. cranberry 400 mg Cap capsuleIndication s:Gummy Take by mouth. Indications: Gummy cyanocobalamin, vitamin B-12, (VITAMIN B12 ORAL) Take by mouth. estradioL (ESTRACE) 0.01 % (0.1 mg/gram) vaginal creamIndications: Mixed stress and urge urinary incontinence Place 2 g vaginally 2 (two) times a week. 42.5 g 5 5 fluticasone propion-salmetero L (ADVAIR DISKUS) 500-50 mcg/dose DISKUSIndications :Intermittent asthma INHALE 1 PUFF BY MOUTH TWICE A DAY 180 each 3 2 GAS RELIEF, SIMETHICONE, ORAL Take 1 tablet by mouth daily as needed. Lactobac no.41/Bifidobact no.7 (PROBIOTIC-10 ORAL) Take by mouth. losartan (COZAAR) 50 MG tabletIndications :Essential hypertension Take 1 tablet (50 mg total) by mouth daily. 90 tablet 3 5 magnesium oxide 500 mg Tab Take by mouth. methenamine (HIPREX) 1 gram tablet Take 1 g by mouth 2 (two) times a day with meals. metoprolol succinate (TOPROL-XL) 25 MG 24 hr tabletIndications :Paroxysmal atrial fibrillation TAKE 3 TABLETS BY MOUTH DAILY 270 tablet 3 5 mirtazapine (REMERON) 7.5 MG tabletIndications :Anxiety,Psychoph ysiological insomnia TAKE 1 TABLET BY MOUTH EVERYDAY AT BEDTIME 90 tablet 3 5 psyllium (METAMUCIL) Powd Take 1 teaspoonful by mouth daily. 3 g = 1 teaspoonful (5 mL) warfarin (COUMADIN) 2.5 MG tabletIndications :Paroxysmal atrial fibrillation TAKE 2 TABLETS BY MOUTH ON TUESDAY, TUESDAY, TUESDAY, AND 1 TABLET ON ALL OTHER DAYS, OR DIRECTED BY THE ANTICOAGULATION CLINIC 130 tablet 3 5 documented as of this encounter Plan of Treatment Upcoming Encounters Date Type Department Care Team (Late st Contact Info) Description 09/19/2025 1:45 PM EST Office Visit [facility] [address] [place] [address] Chan Cruz MD [address] [place] [address] Orthopedics & Sports Medicine, [facility] [place] [address] 10/01/2025 1:00 PM EST Office Visit [facility] [address] [place] [address] Dr 3rd Floor, [address] [place] [address] Stacie Gruber PA-C [address] [place] [address] 01/30/2026 11:00 AM EDT Office Visit [facility] [address] [place] [address] Harris Lennon MD [address] [place] [address], [address] [place] [address] 02/14/2026 10:10 AM EDT Office Visit [facility] End[facility] [address] [place] [address] Talon Seth DO [address] [place] [address] Pending Results Name Type Priority Associated Diagnoses Date /Time Adult Echo TTE Echocardiography Routine Presence of prosthetic heart valve 09/09/2025 11:36 AM EST Scheduled Orders Name Type Priority Associated Diagnoses Orde r Schedule Adult Echo TTE Echocardiography Routine Presence of prosthetic heart valve As Needed for 1 Occurrences starting 09/09/2025 until 09/09/2025 documented as of this encounter Visit Diagnoses Diagnosis Presence of prosthetic heart valve documented in this encounter Additional Health Concerns Assessment Noted Time PHQ-9 Depression Total Score: 15 018 2:17 PM EST PHQ-2 Depression Total Score: 0 09/06/20 24 10:43 AM EST documented as of this encounter Care Teams Director Plans Relationship Specialty Start Date End Date Harris Lennon MD [address] [place] [address], [address] [place] [address] PCP - General Internal Medicine 01/16/21 Kory Vogt MD [address] [place] [address] Gastroenterology 10/07/21 Harris Lennon MD [address] [place] [address], [address] [place] [address] [email or web address] Insurance Assigned Provider 12/17/23 documented as of this encounter Additional Source Comments The information contained in this document represents components of the legal health record. It is not the complete legal health record.[facility]
[2025-09-10 10:34] LABS: Prothrombin Time Whole Bld POC 32.4 sec (11.1-13.5); ~PT, ~INR - Anti Coag Clinic 2.7 (0.9-1.1)
--- NOTE | 2025-09-10 10:40 | MHC.OFFVISCO ---
Intake Intake Visit Reasons: Anticoagulation Allergies memantine Allergy (Severe, Verified 09/10/25 10:30) RAGE nitrofurantoin Allergy (Intermediate, Verified 09/10/25 10:30) RASH oseltamivir (From Tamiflu) Allergy (Intermediate, Verified 09/10/25 10:30) RASH oxycodone (From PERCOCET) Allergy (Unknown, Verified 09/10/25 10:30) UNKNOWN Penicillins (PENICILLINS) Allergy (Unknown, Verified 09/10/25 10:30) UNKNOWN Sulfa (Sulfonamide Antibiotics) (SULFA (SULFONAMIDE ANTIBIOTICS)) Allergy (Unknown, Verified 09/10/25 10:30) UNKNOWN Medication List - Last Reconciled 09/10/25 by Criselda Marshall RN acetaminophen (Tylenol Extra Strength) 1,000 mg (2 x 500 mg) PO QID PRN albuterol sulfate 90 mcg/actuation 2 puffs inhalation Q4-6H PRN alendronate 70 mg PO QWEEK ascorbic acid (vitamin C) (Vitamin C) 500 mg PO TID atorvastatin 40 mg PO DAILY azithromycin 500 mg PO ONCE PRN biotin 5,000 mcg PO DAILY calcium carbonate-vitamin D3 600 mg-12.5 mcg (500 unit) (Calcium with Vit D3) calcium 1200, vit d 25mcg cetirizine 10 mg PO DAILY PRN Held on 12/29/23. Instructions: Doctor's Order cholecalciferol (vitamin D3) 250 McG DAILY PO; clotrimazole-betamethasone 1-0.05 % 1 appl topical BID Held on 12/29/23. Instructions: Doctor's Order cranberry fruit concentrate (Azo Cranberry) PO BID docusate sodium 100 mg PO BID estradiol 0.01%(0.1mg/gram) grams vaginal 2XW ezetimibe 10 mg PO DAILY Held on 12/29/23. Instructions: Doctor's Order fluticasone propion-salmeterol 500-50 mcg/dose (Advair Diskus) 1 inh inhalation BID inhalational spacing device ([facility] spacer) As directed losartan 25 mg PO DAILY magnesium oxide 500 mg PO DAILY mecobalamin (vitamin B12) mcg PO DAILY methenamine hippurate 1 g PO BID metoprolol succinate ER 75 mg PO DAILY mirtazapine 7.5 mg PO BEDTIME xlekjmtm-ubf-xtsh-FA-vit K-lut (Multivitamin Women 50 Plus) PO psyllium husk (Metamucil) 0.4 grams PO DAILY Saccharomyces boulardii (Daily Probiotic (S. boulardii)) PO simethicone (Gas Relief (simethicone)) PO topiramate 50 mg PO DAILY Held on 12/29/23. Instructions: Doctor's Order vibegron (Gemtesa) 75 mg PO DAILY warfarin See Protocol 7.5mg x2days/ 5mg x5days; Nursing Note Pt to ACS accompanied by . INR: 2.7 in therapeutic range of 2-3 Medications and supplements reviewed No changes in diet, medications, or supplements. Pt to have knee injection on 09/19/25 with a 3 day hold of warfarin. told pt she can take warfarin after the procedure on that day. Goal INR for procedure is less than 2.0. Denies any signs and symptoms of bleeding or bruising or clotting. Bleeding, bruising, clotting discussed Nutritional guidance given have a serving or two of greens in the 3 days before the procedure. Will have INR checked on 09/18/25. Pt also instructed to hold greens after the procedure until INR therapeutic. Dose: continue usual dose of 2.5mg X 4 days and 5mg X 3 days (M/W/F) Hold 09/16, 09/17 and 09/18. Procedure 09/19. Start warfarin in the evening of the procedure if okay with and start usual dose of 2.5mg then 5mg then increase the next day from 2.5mg to 5mg then 2.5mg/5mg then retest. F/U INR: 09/17/25 Patient verbalizes understanding of instructions with read back given Coding Level of Care Code Est Patient Level 1 Diagnoses Current use of anticoagulant therapy Z79.01 Assessment & Plan Assessment & Plan (1) Current use of anticoagulant therapy: Code(s): Z79.01 - correction (current) use of anticoagulants Category: Medical
--- OUTSIDE RECORDS SUMMARY | 2025-09-10 13:47 | XMS_ITS | Encounter Summary ---
Author Organization [facility] Address [address] [place] [address] Phone Care Team Providers Care Sleeping Bag Filler Name Role Phone Xuan Ferraro DO Primary Care Provider Damien Lance MD Unavailable Xuan Ferraro DO Unavailable [phone] Harris Lennon MD Primary Care Provider [phone] Kory Vogt MD Unavailable Xuan Ferraro DO Unavailable [phone] Harris Lennon MD Unavailable [phone] Margarita Davidson RN Unavailable [email or web address] Margarita Davidson RN Unavailable [email or web address] Jyoti Aviles OT Unavailable [phone] Encounter Details Date Type Department Care Team (Late st Contact Info) Description 02/13/2019 Ancillary Orders [facility] [address] [place] [address] Xuan Ferraro DO [address] [place], [place] [id number] [email or web address] Breast screening Social History Tobacco Use Types [...] Description 09/19/2025 1:45 PM EST Office Visit [facility] [address] [place] [address] Chan Cruz MD [address] [place] [address] Orthopedics & Sports Medicine, [place] [address] 10/01/2025 1:00 PM EST Office Visit [facility] [address] [place] [address] 3rd Floor, [address] [place] [address] Stacie Gruber PA-C [address] [place] [address] 01/30/2026 11:00 AM EDT Office Visit [facility] [address] [place] [address] [place] [address] Harris Lennon MD [address] [facility], [address] [place] [address] 02/14/2026 10:10 AM EDT Office Visit [facility] Endocrinology Clinic [address] [place] [address] [place] [address] Talon Seth DO [address] [place] [address] documented as of this encounter Results * [...] There are scattered fibroglandular densities. POS - [id number] Narrative 05/15/2019 1:58 PM EDT Full-field digital [...] There are scattered fibroglandular densities. POS - [id number] Xuan Ferraro DO IMG MG EXAMS Final [...] documented as of this encounter Care Teams Sleeping Bag Filler Relationship Specialty Start Date End Date Xuan Ferraro DO [address] [place] [address] [email or web address] PCP - General 09/15/18 01/15/21 Harris Lennon MD [address] [facility] [place] [address] [email or web address] PCP - General Internal Medicine 01/16/21 Damien Lance MD [address] [facility] Floor 1 [place] [address] [email or web address] Insurance Assigned Provider 07/16/17 06/09/19 Xuan Ferraro DO [address] [place] [address] [email or web address] Insurance Assigned Provider 06/09/19 10/06/21 Kory Vogt MD [address] [place] [address] [email or web address] Gastroenterology 10/07/21 Xuan Ferraro DO [address] [place] [address] [email or web address] Insurance Assigned Provider 06/09/19 12/19/21 Harris Lennon MD [address] [place] [address], [address] [place] [address] [email or web address] Insurance Assigned Provider 12/17/23 Margarita Davidson RN [address] [place] [address], [address] [place] [address] [email or web address] [facility] 06/02/22 06/29/22 Margarita Davidson RN [address] [place] [address], [address] [place] [address] [email or web address] PHC [facility] SpecialistsSkilled Laborer 07/01/22 02/17/25 Jyoti Aviles, OT [address] [place] [address] [email or web address] Transitions Willow SpecialistsAuto Transmission Technician Therapy 12/12/2312/14/23 documented as of this encounter Additional Source Comments The information contained in this document represents components of the legal health record. It is not the complete legal health record.[facility]
--- OUTSIDE RECORDS SUMMARY | 2025-09-10 13:47 | XMS_ITS | Encounter Summary ---
Author Organization [facility] Address [address] [facility] [address] [place] [address] Phone Care Team Providers Care Medical Equipment Technician Name Role Phone Damien Lance MD Primary Care Provide r Xuan eFrraro DO Primary Care Provider + [phone] Damien Lance MD Unavailable [phone] Xuan Ferraro DO Unavailable [phone] Harris Lennon MD Primary Care Provider + [phone] Kory Vogt MD Unavailable Xuan Ferraro DO Unavailable [phone] Harris Lennon MD Unavailable [phone] Margarita Davidson RN Unavailable [email or web address] Margarita Davidson RN Unavailable [email or web address] Jyoti Aviles OT Unavailable [phone] Encounter Details Date Type Department Care Team (Latest Contact Info) Description 02/13/2018 Transcribe Orders [facility] [place] [address] [id number] Javier Chauhan MD [address] [id number] [email or web address] Gastroesophageal reflux disease without esophagitis [...] 09/19/2025 1:45 PM EST Office Visit [facility] [address] [place] [address] Chan Cruz MD [address] [place] [address] Orthopedics & Sports [place], [place] [address] 10/01/2025 1:00 PM EST Office Visit [facility] [address] [place] [address] 3rd Floor, [address] [place] [address] Stacie Gruber PA-C 50 [place] [address] 01/30/2026 11:00 AM EDT Office Visit [facility] [address] [place] [address] [place] [address] Harris Lennon MD [address] [facility], [address] [place] [address] 02/14/2026 10:10 AM EDT Office Visit [facility] [address] [place] [address] Talon Seth DO 22 [place] [address] documented as of this encounter Results * (ABNORMAL) C-Reactive Protein (02/13/2018 2:31 PM EDT) Pathologist [facility] [place] C REACTIVE PROTEIN 6.4(H) 0.0 - 4.0 mg/L [facility] Comment:New Reference Range and Measuring Units effective 01/25/18. Blood 02/13/2018 2:31 PM EDT 02/13/2018 2:36 PM EDT us Javier Chauhan MD LAB BLOOD BKR ORDERABLES Fin al Result [facility] [address] [place] [address] * (ABNORMAL) Comprehensive metabolic panel (02/13/2018 2:31 PM EDT) Pathologist [facility] [place] SODIUM 133 133 - 146 mmol/L [facility] POTASSIUM 5.6(H) 3.3 - 5.1 mmol/L [facility] CHLORIDE 94(L) 96 - 108 mmol/L [facility] CO2 27 21 - 35 mmol/L [facility] BUN 14 6 - 19 mg/dL [facility] CREATININE 0.60 0.5 - 1.5 mg/dL [facility] GLUCOSE 108(H) 70 - 99 mg/dL [facility] ALBUMIN 4.2 3.9 - 4.8 g/dL [facility] TOTAL PROTEIN 6.6 6.5 - 8.0 g/dL [facility] CALCIUM 9.3 8.4 - 10.3 mg/dL [facility] ALKALINE PHOSPHATASE 43 39 - 117 U/L [facility] TOTAL BILIRUBIN 0.2 0.0 - 1.2 mg/dL [facility] AST 20 0 - 37 U/L [facility] ALT 14 0 - 40 U/L [facility] GLOBULIN 2.4 1 - 4.8 g/dL [facility] EGFR 90 >59 mL/min/1.7 3m2 [facility] Comment:If patient is black, multiply result by 1.159. The eGFR calculation has changed from the MDRD equation to the CKD-EPI equation as of November 15, 2017. ANION GAP 18 10 - 20 mmol/L [facility] Blood 02/13/2018 2:31 PM EDT 02/13/2018 2:36 PM EDT Javier Chauhan MD LAB BLOOD BKR ORDERABLES Fin al Result Performing Organization Address City/[facility]/ZIP Co de Phone Number [address] [address] * Tissue transglutaminase IgA (02/13/2018 2:31 PM EDT) TTG IGA ANTIBODY <1.2 <4.0 (Negative) U/mL [facility] DPT OF LAB MED AND PAT+ Blood 02/13/2018 2:31 PM EDT 02/13/2018 2:37 PM EDT us Javier Chauhan MD LAB BLOOD BKR ORDERABLES Fin al Result Performing Organization Address [facility] Co de Phone Number [facility] DPT OF LAB MED AND PAT+ [address] [place] [address] * Immunoglobulin A (02/13/2018 2:31 PM EDT) IgA 70 70 - 400 mg/dL [facility] Blood 02/13/2018 2:31 PM EDT 02/13/2018 2:36 PM EDT us Javier Chauhan MD LAB BLOOD BKR ORDERABLES Fin al Result Performing Organization Address [facility] Co de Phone Number [address] [address] * Gliadin deamidated antibody, IgG/IgA (02/13/2018 2:31 PM EDT) Gliadin Ab, IGA <10.0 <20.0 (Negative) U [facility] DPT OF LAB MED AND PAT+ GLIADIN AB IGG <10.0 <20.0 (Negative) U [facility] DPT OF LAB MED AND PAT+ Blood 02/13/2018 2:31 PM EDT 02/13/2018 2:37 PM EDT us Javier Chauhan MD LAB BLOOD ORDERABLES Final R esult [facility] DPT OF LAB MED AND PAT+ [address] [place] [address] * (ABNORMAL) CBC and differential (02/13/2018 2:31 PM EDT) WBC 8.84 3.40 - 11.20 K/uL [facility] RBC 4.07 3.80 - 4.80 M/uL [facility] HGB 12.3 12.0 - 15.0 g/dL [facility] HCT 38.2 36.0 - 46.0 % [facility] PLT 333 130 - 400 K/uL [facility] MCV 93.9 79.0 - 98.0 fL [facility] MCH 30.2 27.0 - 34.8 pg [facility] MCHC 32.2 31.5 - 36.0 g/dL [facility] RDW 14.4 10.8 - 14.6 % [facility] MPV 9.8 9.4 - 12.4 fl [facility] NRBC 0.00 /100 WBCs [facility] ABSOLUTE NRBC 0.00 K/uL [facility] DIFF METHOD Auto [facility] NEUTS 79.6(H) 45.30 - 77.70 % [facility] LYMPHS 12.6 12.30 - 39.70 % [facility] MONOS 6.2 4.10 - 12.80 % [facility] EOS 0.8 0 - 7.2 % [facility] BASOS 0.3 0 - 2.80 % [facility] Granulocytes, immature (%) 0.5 0.0 - 0.9 % [facility] ABSOLUTE NEUTS 7.04 1.40 - 7.70 K/uL [facility] ABSOLUTE LYMPHS 1.11 0.60 - 3.20 K/uL [facility] ABSOLUTE MONOS 0.55 0.11 - 0.59 K/uL [facility] ABSOLUTE EOS 0.07 0.01 - 0.50 K/uL [facility] ABSOLUTE BASOS 0.03 0.00 - 0.08 K/uL [facility] Granulocytes, immature 0.04 0.00 - 0.05 K/uL [facility] Blood 02/13/2018 2:31 PM EDT 02/13/2018 2:36 PM EDT us Javier Chauhan MD LAB BLOOD BKR ORDERABLES Fin al Result [facility] [address] [place] [address] documented in this encounter Visit Diagnoses Diagnosis [...] as of this encounter Care Teams Medical Equipment Technician Relationship Specialty Start Date End Date Damien Lance MD [email or web address] PCP - General Internal Medicine 07/18/17 09/14/18 Xuan Ferraro DO [address] [place] [address] [email or web address] PCP - General 09/15/18 01/15/21 Harris Lennon MD [address] [place] [address], [address] [place] [address] [email or web address] PCP - General Internal Medicine 01/16/21 Damien Lance MD [address] [place] [address] Floor 1 [place] [address] [email or web address] Insurance Assigned Provider 07/16/17 06/09/19 Xuan Ferraro DO [address] [place] [address] [email or web address] Insurance Assigned Provider 06/09/19 10/06/21 Kory Vogt MD [address] [place] [address] [email or web address] Gastroenterology 10/07/21 Xuan Ferraro DO [address] [place] [address] [email or web address] Insurance Assigned Provider 06/09/19 12/19/21 Harris Lennon MD [address] [place] [address], [address] [place] [address] [email or web address] Insurance Assigned Provider 12/17/23 Margarita Davidson RN [address] [place] [address], [address] [place] [address] [email or web address] [place] Agricultural Agent 06/02/22 06/29/22 Margarita Davidson RN [address] [place] [address], [address] [address] [email or web address] [place] Agricultural AgentSafety Spec 07/01/22 02/17/25 Jyoti Aviles, OT [address] [place] [address] [email or web address] Transitions County Agricultural AgentStudent Education Specialist Therapy 12/12/2312/14/23 documented as of this encounter Additional Source Comments The information contained in this document represents components of the legal health record. It is not the complete legal health record.[facility]
--- OUTSIDE RECORDS SUMMARY | 2025-09-10 13:47 | XMS_ITS | Encounter Summary ---
Author Organization [facility] Address [address] [place] [address] Phone Care Team Providers Care Research Animal Attendant Name Role Phone Xuan Ferraro DO Primary Care Provider + [phone] Damien Lance MD Unavailable Xuan Ferraro DO Unavailable [phone] Harris Lennon MD Primary Care Provider + [phone] Kory Vogt MD Unavailable Xuan Ferraro DO Unavailable [phone] Harris Lennon MD Unavailable [phone] Margarita Davidson RN Unavailable [email or web address] Margarita Davidson RN Unavailable [email or web address] Jyoti Aviles OT Unavailable [phone] Encounter Details Date Type Department Care Team (Late st Contact Info) Description 11/29/2018 Procedure Pass [facility], [address] [address] Social History Tobacco Use Types Packs/Day Years [...] Description 09/19/2025 1:45 PM EST Office Visit [facility] [address] [place] [address] Chan Cruz MD [address] [place] [address] Orthopedics & Sports Medicine, [place] [address] 10/01/2025 1:00 PM EST Office Visit [facility] 22 [facility] 3rd Floor, [address] [place] [address] Stacie Gruber PA-C 50 [place] [address] 01/30/2026 11:00 AM EDT Office Visit [facility] [address] [place] [address] Harris Lennon MD 22 [facility], [address] [place] [address] 02/14/2026 10:10 AM EDT Office Visit [facility] Endocrinology Clinic [address] [place] [address] Talon Seth DO [address] [place] [address] [email or web address] documented as of this encounter Visit Diagnoses [...] documented as of this encounter Care Teams Research Animal Attendant Relationship Specialty Start Date End Date Xuan Ferraro DO [address] [place] [address] [email or web address] PCP - General 09/15/18 01/15/21 Harris Lennon MD 22 [facility], [address] [place] [address] [email or web address] PCP - General Internal Medicine 01/16/21 Damien Lance MD [address] [facility] Floor 1 [place] [address] [email or web address] Insurance Assigned Provider 07/16/17 06/09/19 Xuan Ferraro DO [address] [place] [address] [email or web address] Insurance Assigned Provider 06/09/19 10/06/21 Kory Vogt MD [address] [place] [address] [email or web address] Gastroenterology 10/07/21 Xuan Ferraro DO [address] [place] [address] [email or web address] Insurance Assigned Provider 06/09/19 12/19/21 Harris Lennon MD [address] [place] [address], [address] [place] [address] [email or web address] Insurance Assigned Provider 12/17/23 Margarita Davidson RN [address] [place] [address], [address] [place] [address] [email or web address] PHCM Plastic Roller 06/02/22 06/29/22 Margarita Davidson RN [address] [place] [address], [address] [place] [address] [email or web address] PHC Plastic RollerChangeover Operator 07/01/22 02/17/25 Jyoti Aviles, OT [address] [place] [address] [email or web address] Transitions Plastic RollerNewspaper Inserter Therapy 12/12/2312/14/23 documented as of this encounter Additional Source Comments The information contained in this document represents components of the legal health record. It is not the complete legal health record.[facility]
--- OUTSIDE RECORDS SUMMARY | 2025-09-10 13:47 | XMS_ITS | Encounter Summary ---
Author Organization [facility] Address [address] [place] [address] Phone Care Team Providers Care Kidney Trimmer Name Role Phone Harris Lennon MD Primary Care Provider [phone] Kory Vogt MD Unavailable Harris Lennon MD Unavailable [phone] Margarita Davidson RN Unavailable [email or web address] Jyoti Aviles OT Unavailable [phone] Encounter Details Date Type Department Care Team (Late st Contact Info) Description 08/02/2022 Procedure Pass [facility], [address] [address] Social History Tobacco Use Types Packs/Day Years [...] Description 09/19/2025 1:45 PM EST Office Visit [facility] [address] [place] [address] Chan Cruz MD [address] [place] [address] Orthopedics & Sports Medicine, [place] [address] 10/01/2025 1:00 PM EST Office Visit [facility] [address] [place] [address] 3rd Floor, [address] [place] [address] Stacie Gruber PA-C [address] [place] [address] 01/30/2026 11:00 AM EDT Office Visit [facility] Clinic [address] [place] [address] Harris Lennon MD [address] [place] [address], [address] [place] [address] 02/14/2026 10:10 AM EDT Office Visit [facility] Endocrinology Clinic [address] [place] [address] Talon Seth DO 22 [place] [address] documented as of this encounter Visit Diagnoses [...] documented as of this encounter Care Teams Kidney Trimmer Relationship Specialty Start Date End Date Harris Lennon MD [address] [place] [address], [address] [place] [address] PCP - General Internal Medicine 01/16/21 Kory Vogt MD [address] [place] [address] Gastroenterology 10/07/21 Harris Lennon MD [address] [place] [address], [address] [place] [address] Insurance Assigned Provider 12/17/23 Margarita Davidson RN 22 [facility], [address] [place] [address] [email or web address] Sheet Metal Layout MechanicAmmonia Solution Preparer 07/01/22 02/17/25 Jyoti Aviles, OT [address] [place] [address] Transitions Sheet Metal Layout MechanicPeriodontist Therapy 12/12/2312/14/23 documented as of this encounter Additional Source Comments The information contained in this document represents components of the legal health record. It is not the complete legal health record.[facility]
--- OUTSIDE RECORDS SUMMARY | 2025-09-10 13:47 | XMS_ITS | Encounter Summary ---
Author Organization [facility] Address [address] [place] [address] Phone Care Team Providers Care Making Department Preparer Name Role Phone Harris Lennon MD Primary Care Provider [phone] Kory Vogt MD Unavailable Harris Lennon MD Unavailable [phone] Encounter Details Date Type Department Care Team (Late st Contact Info) Description 04/08/2025 Procedure Pass [facility] [address] [place], [place] [id number] Social History Tobacco Use Types Packs/Day Years [...] Description 09/19/2025 1:45 PM EST Office Visit [facility] Medicine Clinic [address] [place] [address] Chan Cruz MD [address] [place] [address] Orthopedics & Sports Medicine, [place] [address] 10/01/2025 1:00 PM EST Office Visit [facility] [address] [place] [address] 3rd Floor, [address] [place] [address] Stacie Gruber PA-C [address] [place] [address] 01/30/2026 11:00 AM EDT Office Visit [facility] [address] [place] [address] [place] [address] Harris Lennon MD 22 [facility], [address] [place] [address] 02/14/2026 10:10 AM EDT Office Visit [facility] Endocrinology Clinic [address] [place] [address] [place] [address] Talon Seth DO 22 [place] [address] documented as of this encounter Visit Diagnoses Not on filedocumented in this encounter Additional Health Concerns Assessment Noted Time PHQ-9 Depression Total Score: 15 018 2:17 PM EST PHQ-2 Depression Total Score: 0 09/06/20 24 10:43 AM EST documented as of this encounter Care Teams Making Department Preparer Relationship Specialty Start Date End Date Harris Lennon MD [address] [place] [address], [address] [place] [address] PCP - General Internal Medicine 01/16/21 Kory Vogt MD [address] [place] [address] Gastroenterology 10/07/21 Harris Lennon MD [address] [place] [address], [address] [place] [address] Insurance Assigned Provider 12/17/23 documented as of this encounter Additional Source Comments The information contained in this document represents components of the legal health record. It is not the complete legal health record.[facility]
--- OUTSIDE RECORDS SUMMARY | 2025-09-10 13:47 | XMS_ITS | Encounter Summary ---
Author Organization [facility] Address [address] [place] [address] Phone Care Team Providers Care Weigher Alloy Name Role Phone Xuan Ferraro DO Primary Care Provider Xuan Ferraro DO Unavailable Harris Lennon MD Primary Care Provider Kory Vogt MD Unavailable Xuan Ferraro DO Unavailable [phone] Harris Lennon MD Unavailable [phone] Margarita Davidson RN Unavailable [email or web address] Margarita Davidson RN Unavailable [email or web address] yJoti Aviles OT Unavailable Encounter Details Date Type Department Care Team (Late st Contact Info) Description 11/08/2019 Ancillary Orders Nathalia Peres Non-Invasic Cardiology [address] [place] [address] Xuan Ferraro DO [address] [place] [address] [email or web address] Other chest pain Social History Tobacco Use [...] Description 09/19/2025 1:45 PM EST Office Visit [facility] [address] [place] [address] Chan Cruz MD [address] [place] [address] Orthopedics & Sports Medicine, [place] [address] 10/01/2025 1:00 PM EST Office Visit [facility] [address] [place] [address] 3rd Floor, [address] [place] [address] Stacie Gruber PA-C [address] [place] [address] 01/30/2026 11:00 AM EDT Office Visit [facility] Primary Care Clinic [address] [place] [address] Harris Lennon MD 22 [facility], [address] [place] [address] 02/14/2026 10:10 AM EDT Office Visit [facility] Endocrinology Clinic [address] [place] [address] [place] [address] Talon Seth DO 22 [place] [address] documented as of this encounter Results * NC Stress Result for Nuclear Stress Test (11/08/2019 10:14 AM EST) Max BP Systolic 158 mmHg [facility] Max BP Diastolic 70 mmHg [facility] Max HR 123 BPM [facility] Resting HR 78 BPM [facility] Resting BP Systolic 150 mmHg [facility] Resting BP Diastolic 72 mmHg [facility] Peak METS 2.3 METS [facility] Peak HR 118 BPM [facility] Peak BP Systolic 136 mmHg [facility] Peak BP Diastolic 76 mmHg [facility] Anatomical Region Laterality Modality Heart [...] predicted heart rate. Rate pressure product was [address]. REPORT: Patient exercised for 4:00 minutes on [...] PA-C with Dr. Garcia . us Xuan M Ferraro DO CV NM CARDIAC Final Resu [...] documented as of this encounter Care Teams Weigher Alloy Relationship Specialty Start Date End Date Xuan Ferraro DO [address] [place] [address] [email or web address] PCP - General 09/15/18 01/15/21 Harris Lennon MD [address] [place] [address], [address] [place] [address] [email or web address] PCP - General Internal Medicine 01/16/21 Xuan Ferraro DO [address] [place] [id number] @[email or web address] Insurance Assigned Provider 06/09/19 10/06/21 Kory Vogt MD [address] [place] [address] [email or web address] [email or web address] 10/07/21 Xuan Ferraro DO [address] [place] [address] [email or web address] Insurance Assigned Provider 06/09/19 12/19/21 Harris Lennon MD [address] [place] [address], [address] [place] [address] [email or web address] Insurance Assigned Provider 12/17/23 Margarita Davidson RN [address] [place] [address], [address] [place] [address] [email or web address] Aluminum Siding Applicator 06/02/22 06/29/22 Margarita Davidson RN [address] [place] [address], [address] [place] [address] [email or web address] Aluminum Siding ApplicatorSupervisor [employer]dnance Truck Installation 07/01/22 02/17/25 Jyoti Aviles, OT [address] [place] [address] [email or web address] Transitions Aluminum Siding ApplicatorFruit Worker Therapy 12/12/2312/14/23 documented as of this encounter Additional Source Comments The information contained in this document represents components of the legal health record. It is not the complete legal health record.[facility]
--- OUTSIDE RECORDS SUMMARY | 2025-09-10 13:48 | XMS_ITS | Encounter Summary ---
Author Organization [facility] Address [address] [place] [address] Phone Care Team Providers Care Supervisor Joiners Name Role Phone Harris Lennon MD Primary Care Provider [phone] Kory Vogt MD Unavailable Harris Lennon MD Unavailable [phone] Reason for Visit * Reason Onset Date Comments Results 07/08/2025 Encounter Details Date Type Department Care Team (Late st Contact Info) Description 07/08/2025 Telephone [facility] [address] [place] [address] [email or web address] Results Social History Tobacco Use Types Packs/Day [...] EDT Syed from the coumadin clinic at [facility] states Lindsey's INR 1.5 today. Her target [...] recommendations or changes, please call her at [phone]. * Krissy Jarvis - 07/08/2025 11:51 AM EDT Alyse from [facility] Anticoagulation clinic called in to provide a critical test result. Please contact and advise. Central Support Dehydrogenation Supervisor (Please do not reply to this user; this inbox is not monitored.) Thank you. documented in this encounter Plan of Treatment Upcoming Encounters Date Type Department Care Team (Late st Contact Info) Description 09/19/2025 1:45 PM EST Office Visit [facility] [address] [place] [address] Chan Cruz MD [address] [place] [address] Orthopedics & Sports Medicine, [place] [address] 10/01/2025 1:00 PM EST Office Visit [facility] [address] [place] [address] 3rd Floor, [address] [place] [address] Stacie Gruber PA-C [address] [place] [address] 01/30/2026 11:00 AM EDT Office Visit [facility] [address] [place] [address] Harris Lennon MD [address] [place] [address], [address] [place] [address] 02/14/2026 10:10 AM EDT Office Visit [facility] Endocrinology Clinic [address] [place] [address] Talon Seth DO [address] [place] [address] documented as of this encounter Visit Diagnoses Not on filedocumented in this encounter Additional Health Concerns Assessment Noted Time PHQ-9 Depression Total Score: 15 018 2:17 PM EST PHQ-2 Depression Total Score: 0 09/06/20 24 10:43 AM EST documented as of this encounter Care Teams Supervisor Joiners Relationship Specialty Start Date End Date Harris Lennon MD [address] [place] [address], [address] [place] [address] PCP - General Internal Medicine 01/16/21 Kory Vogt MD [address] [place] [address] [email or web address] Gastroenterology 10/07/21 Harris Lennon MD [address] [place] [address], [address] [place] [address] [email or web address] Insurance Assigned Provider 12/17/23 documented as of this encounter Additional Source Comments The information contained in this document represents components of the legal health record. It is not the complete legal health record.[facility]
--- OUTSIDE RECORDS SUMMARY | 2025-09-10 13:48 | XMS_ITS | Encounter Summary ---
Author Organization [facility] Address [address] [place] [address] Phone Care Team Providers Care Harbor Police Lieutenant Name Role Phone Xuan Ferraro DO Primary Care Provider + [phone] Xuan Ferraro DO Unavailable [phone] Harris Lennon MD Primary Care Provider [phone] Kory Vogt MD Unavailable Xuan Ferraro DO Unavailable [phone] Harris Lennon MD Unavailable [phone] Margarita Davidson RN Unavailable [email or web address] Margarita Davidson RN Unavailable [email or web address] Jyoti Aviles OT Unavailable [phone] Encounter Details Date Type Department Care Team (Late st Contact Info) Description 05/21/2020 Procedure Pass [facility], [address] [address] Social History Tobacco Use Types Packs/Day Years [...] Description 09/19/2025 1:45 PM EST Office Visit [facility] [address] [place] [address] Chan Cruz MD [address] [place] [address] Orthopedics & Sports Medicine, [place] [address] 10/01/2025 1:00 PM EST Office Visit [facility] [address] [facility] 3rd Floor, [address] [place] [address] Stacie Gruber PA-C [address] [place] [address] 01/30/2026 11:00 AM EDT Office Visit [facility] Primary Care Clinic [address] [place] [address] Harris Lennon MD [address] [facility], [address] [place] [address] 02/14/2026 10:10 AM EDT Office Visit [facility] Endocrinology Clinic [address] [place] [address] Talon Seth DO 22 [place] [address] documented as of this encounter Visit Diagnoses [...] documented as of this encounter Care Teams Harbor Police Lieutenant Relationship Specialty Start Date End Date Xuan Ferraro DO [address] [place] [address] [email or web address] PCP - General 09/15/18 01/15/21 Harris Lennon MD [address] [place] [address], [address] [place] [address] [email or web address] PCP - General Internal Medicine 01/16/21 Xuan Ferraro DO [address] [place] [address] [email or web address] Insurance Assigned Provider 06/09/19 10/06/21 Kory Vogt MD [address] [place] [address] [email or web address] 10/07/21 Xuan Ferraro DO [address] [place] [address] [email or web address] Insurance Assigned Provider 06/09/19 12/19/21 Harris Lennon MD [address] [place] [address], [address] [place] [address] [email or web address] Insurance Assigned Provider 12/17/23 Margarita Davidson RN [address] [place] [address], [address] [place] [address] [email or web address] [facility] Cloth Laminating Supervisor 06/02/22 06/29/22 Margarita Davidson, RN [address] [facility], [address] [place] [address] [email or web address] PHCM Cloth Laminating SupervisorSolar Consultant 07/01/22 02/17/25 Jyoti Aviles, OT [address] [place] [address] [email or web address] Transitions Cloth Laminating SupervisorMolecular Technologist Therapy 12/12/2312/14/23 documented as of this encounter Additional Source Comments The information contained in this document represents components of the legal health record. It is not the complete legal health record.[facility]
--- OUTSIDE RECORDS SUMMARY | 2025-09-10 13:48 | XMS_ITS | Encounter Summary ---
Author Organization [facility] Address [address] [place] [address] Phone Care Team Providers Care Customer Relationship Specialist Name Role Phone Harris Lennon MD Primary Care Provider [phone] Kory Vogt MD Unavailable Harris Lennon MD Unavailable [phone] Margarita Davidson RN Unavailable [email or web address] Encounter Details Date Type Department Care Team (Latest Contact Info) Description 08/02/2024 Transcribe Orders Virtual Department [address] [place] [address] Harris Lennon MD 22 [facility], [address] [place] [address] [email or web address] Breast screening (Primary Dx) Social [...] Description 09/19/2025 1:45 PM EST Office Visit [facility] Medicine Clinic [address] [place] [address] Chan Cruz MD [address] [place] [address] Orthopedics & Sports [place], [place] [address] 10/01/2025 1:00 PM EST Office Visit [facility] [address] [place] [address] 3rd Floor, [address] [place] [address] Stacie Gruber PA-C [address] [place] [address] 01/30/2026 11:00 AM EDT Office Visit [facility] Primary Care Clinic [address] [place] [address] Harris Lennon MD 22 [facility], [address] [place] [address] 02/14/2026 10:10 AM EDT Office Visit [facility] Endocrinology [address] [place] [address] Rolo TalonDO 22 [place] [address] [email or web address] documented as of [...] of the results and recommendations. us Harris G Moskovitz MD IMG MG EXAMS Final Resu lt documented in this encounter Visit Diagnoses Diagnosis Breast screening- Primary Breast screening, unspecified Breast screening Breast screening, unspecified documented in this encounter Additional Health Concerns Assessment Noted Time PHQ-9 Depression Total Score: 15 018 2:17 PM EST PHQ-2 Depression Total Score: 0 06/22/20 23 1:25 PM EDT documented as of this encounter Care Teams Customer Relationship Specialist Relationship Specialty Start Date End Date Harris Lennon MD [address] [place] [address], [address] [place] [address] PCP - General Internal Medicine 01/16/21 Kory Vogt MD [address] [place] [address] Gastroenterology 10/07/21 Harris Lennon MD [address] [place] [address], [address] [place] [address] Insurance Assigned Provider 12/17/23 Margarita Davidson, MARIZOL [address] [place] [address], [address] [place] [address] [email or web address] PHCM County SurveyorSprayer Hand 07/01/22 02/17/25 documented as of this encounter Additional Source Comments The information contained in this document represents components of the legal health record. It is not the complete legal health record.[facility]
--- OUTSIDE RECORDS SUMMARY | 2025-09-10 13:48 | XMS_ITS | Patient Health Record ---
Author Organization [facility] Address [address] [place] [address] Care Team Providers Care Diploma Dental Assistant Name Role Phone Damien Lance Primary Care Provider Brianne Arcos Unavailable [phone] Allergies Allergen (clinical drug ingredient) Drug/Non Drug [...] Medicare National Govt Svcs Inc [address] [place] [address] [id number] Lindsey oJsé Self - patient is the insured [employer] Blue Shield [address] [place] [address] [phone] [id number] Lindsey José Self - patient is the insured Medical (General) History Medical History History ICD Code osteoarthritis asthma Back,Hip,and Knee pain Broken bones Cholesterol Dementia Depression Heart disease Hypertension Neuropathy Reflux chronic sinusitis Measles Mumps Chicken pox Joint implants/screws Transfusions
--- OUTSIDE RECORDS SUMMARY | 2025-09-10 13:48 | XMS_ITS | Encounter Summary ---
Author Organization [facility] Address [address] [place] [address] Phone Care Team Providers Care Defense Analyst Name Role Phone Xuan Ferraro DO Primary Care Provider Xuan Ferraro DO Unavailable [phone] Harris Lennon MD Primary Care Provider Kory Vogt MD Unavailable Xuan Ferraro DO Unavailable [phone] Harris Lennon MD Unavailable [phone] Margarita Davidosn RN Unavailable [email or web address] Margarita Davidson RN Unavailable [email or web address] Jyoti Aviles OT Unavailable [phone] Encounter Details Date Type Department Care Team (Latest Contact Info) Description 08/13/2019 Transcribe Orders [facility] [place] [address] [place] [address] Gabriel Fay MD [email or web address] Personal history of arthritis (Primary Dx); [...] Description 09/19/2025 1:45 PM EST Office Visit [facility] Medicine Clinic [address] [place] [address] Chan Cruz MD [address] [place] [address] Orthopedics & Sports Medicine, [place] [address] 10/01/2025 1:00 PM EST Office Visit [facility] [address] [place] [address] 3rd Floor, [address] [place] [address] Stacie Gruber PA-C [address] [place] [address] 01/30/2026 11:00 AM EDT Office Visit [facility] Primary Care Clinic [address] [place] [address] [place] [address] Harris Lennon MD 22 [facility], [address] [place] [address] 02/14/2026 10:10 AM EDT Office Visit [facility] Endocrinology Clinic [address] [place] [address] [place] [address] Talon Seth DO 22 [place] [address] documented as of this encounter Visit Diagnoses [...] documented as of this encounter Care Teams Defense Analyst Relationship Specialty Start Date End Date Xuan Ferraro DO [address] [place] [address] [email or web address] PCP - General 09/15/18 01/15/21 Harris Lennon MD [address] [place] [address], [address] [place] [address] PCP - General Internal Medicine 01/16/21 Xuan Ferraro DO [address] [place] [address] [email or web address] Insurance Assigned Provider 06/09/19 10/06/21 Kory Vogt MD [address] [place] [address] [email or web address] Gastroenterology 10/07/21 Xuan Ferraro DO [address] [place] [address] [email or web address] Insurance Assigned Provider 06/09/19 12/19/21 Harris Lennon MD [address] [place] [address], [address] [place] [address] [email or web address] Insurance Assigned Provider 12/17/23 Margarita Davidson RN 22 [facility], [address] [place] [address] PHCM Stone Engraver 06/02/22 06/29/22 Margarita Davidson RN [address] [place] [address], [address] [place] [address] PHC Stone EngraverProtein Scientist 07/01/22 02/17/25 Jyoti Aviles, OT [address] [place] [address] [email or web address] Transitions Stone EngraverBowling Pin Refinisher Therapy 12/12/2312/14/23 documented as of this encounter Additional Source Comments The information contained in this document represents components of the legal health record. It is not the complete legal health record.[facility]
--- OUTSIDE RECORDS SUMMARY | 2025-09-10 13:48 | XMS_ITS | Encounter Summary ---
Author Organization [facility] Address [address] [place] [address] Phone Care Team Providers Care Ground Source Heat Pump Technician Name Role Phone Xuan Ferraro DO Unavailable [phone] Harris Lennon MD Primary Care Provider [phone] Kory Vogt MD Unavailable Xuan Ferraro DO Unavailable [phone] Harris Lennon MD Unavailable [phone] Margarita Davidson RN Unavailable [email or web address] Margarita Davidson RN Unavailable [email or web address] Jyoti Aviles OT Unavailable [phone] Encounter Details Date Type Department Care Team (Late st Contact Info) Description 04/23/2021 Procedure Pass [facility], Ct Scan - [address] [address] Social History Tobacco Use Types Packs/Day Years [...] 09/19/2025 1:45 PM EST Office Visit [facility] Orthopedics and Sports Medicine Clinic [address] [place] [address] Chan Cruz MD [address] [place] [address] Orthopedics & Sports Medicine, [place] [address] 10/01/2025 1:00 PM EST Office Visit [facility] [address] [facility] 3rd Floor, [address] [place] [address] Stacie Gruber PA-C [address] [place] [address] 01/30/2026 11:00 AM EDT Office Visit [facility] Primary Care Clinic [address] [place] [address] Harris Lennon MD 22 [facility], [address] [place] [address] 02/14/2026 10:10 AM EDT Office Visit [facility] Endocrinology Clinic [address] [place] [address] Talon Seth DO 22 [place] [address] documented as of this encounter Visit Diagnoses [...] documented as of this encounter Care Teams Ground Source Heat Pump Technician Relationship Specialty Start Date End Date Harris Lennon MD [address] [place] [address], [address] [place] [address] PCP - General Internal Medicine 01/16/21 Xuan Ferraro DO [address] [place] [address] [email or web address] Insurance Assigned Provider 06/09/19 10/06/21 Kory Vogt MD [address] [place] [address] Gastroenterology 10/07/21 Xuan Ferraro DO [address] [place] [address] [email or web address] Insurance Assigned Provider 06/09/19 12/19/21 Harris Lennon MD [address] [place] [address], [address] [place] [address] Insurance Assigned Provider 12/17/23 Margarita Davidson RN [address] [place] [address], [address] [place] [address] [email or web address] PHCM Solder Cream Maker 06/02/22 06/29/22 Margarita Davidson RN [address] [place] [address], [address] [place] [address] [email or web address] PHCM Solder Cream MakerNet Fisher 07/01/22 02/17/25 Jyoti Aviles, OT [address] [place] [address] [email or web address] Transitions Solder Cream MakerJailkeeper Therapy 12/12/2312/14/23 documented as of this encounter Additional Source Comments The information contained in this document represents components of the legal health record. It is not the complete legal health record.[facility]
--- OUTSIDE RECORDS SUMMARY | 2025-09-10 13:48 | XMS_ITS | Encounter Summary ---
Author Organization [facility] Address [address] [place] [address] Phone Care Team Providers Care Harness Maker Name Role Phone Harris Lennon MD Primary Care Provider [phone] Kory Vogt MD Unavailable Harris Lennon MD Unavailable [phone] Margarita Davidson RN Unavailable [email or web address] Margarita Davidson RN Unavailable [email or web address] Jyoti Aviles OT Unavailable [phone] Encounter Details Date Type Department Care Team (Late st Contact Info) Description 12/23/2021 Procedure Pass [facility] [address] [place] [address] Social History Tobacco Use Types Packs/Day Years [...] 09/19/2025 1:45 PM EST Office Visit [facility] Orth[facility]ics and Sports Medicine Clinic [address] [place] [address] Chan Cruz MD [address] [place] [address] Orthopedics & Sports Medicine, [place] [address] 10/01/2025 1:00 PM EST Office Visit [facility] [address] [place] [address] 3rd Floor, [address] [place] [address] Stacie Gruber PA-C [address] [place] [address] 01/30/2026 11:00 AM EDT Office Visit [facility] Primary Care Clinic [address] [place] [address] Harris Lennon MD [address] [place] [address], [address] [place] [address] 02/14/2026 10:10 AM EDT Office Visit [facility] Endocrinology Clinic [address] [place] [address] Talon Seth DO 22 [place] [address] documented as of this encounter Visit Diagnoses [...] documented as of this encounter Care Teams Harness Maker Relationship Specialty Start Date End Date Moskovitz, Harris G, MD [address] [place] [address], [address] [place] [address] PCP - General Internal Medicine 01/16/21 Kory Vogt MD [address] [place] [address] [email or web address] G[facility] 10/07/21 Harris Lennon MD [address] [place] [address], [address] [place] [address] Insurance Assigned Provider 12/17/23 Margarita Davidson RN [address] [place] [address], [address] [place] [address] [email or web address] PHCM Power Wheelchair Mechanic 06/02/22 06/29/22 Margarita Davidson RN [address] [place] [address], [address] [place] [address] [email or web address] PHC Power Wheelchair MechanicAwning Maker And Installer 07/01/22 02/17/25 Jyoti Aivles, OT [address] [place] [address] [email or web address] Transitions Power Wheelchair MechanicTire Bladder Maker Therapy 12/12/2312/14/23 documented as of this encounter Additional Source Comments The information contained in this document represents components of the legal health record. It is not the complete legal health record.[facility]
--- OUTSIDE RECORDS SUMMARY | 2025-09-10 13:48 | XMS_ITS | Encounter Summary ---
Author Organization [facility] Address [address] [place] [address] Phone Care Team Providers Care Core Loader Name Role Phone Harris Lennon MD Primary Care Provider [phone] Kory Vogt MD Unavailable Harris Lennon MD Unavailable [phone] Margarita Davidson RN Unavailable [email or web address] Encounter Details Date Type Department Care Team (Late st Contact Info) Description 03/14/2024 Procedure Pass [facility] [employer] [facility] [address] [place] [address] Social History Tobacco Use Types Packs/Day [...] Upcoming Encounters Date Type Department Care Team ([facility] st Contact Info) Description 09/19/2025 1:45 PM EST Office Visit [facility] Medicine Clinic [address] [place] [address] Chan Cruz MD [address] [place] [address] Orthopedics & Sports Medicine, [place] [address] 10/01/2025 1:00 PM EST Office Visit [facility] [address] [facility] 3rd Floor, [address] [place] [address] Stacie Gruber PA-C [address] [place] [address] 01/30/2026 11:00 AM EDT Office Visit [facility] Primary Care Clinic [address] [place] [address] [place] [address] Harris Lennon MD 22 [facility], [address] [place] [address] 02/14/2026 10:10 AM EDT Office Visit [facility] Endocrinology Clinic [address] [place] [address] Talon Seth DO 22 [place] [address] documented as of this encounter Visit Diagnoses Not on filedocumented in this encounter Additional Health Concerns Assessment Noted Time PHQ-9 Depression Total Score: 15 018 2:17 PM EST PHQ-2 Depression Total Score: 0 09/06/20 24 10:43 AM EST documented as of this encounter Care Teams Core Loader Relationship Specialty Start Date End Date Harris Lennon MD [address] [place] [address], [address] [place] [address] [email or web address] PCP - General Internal Medicine 01/16/21 Kory Vogt MD [address] [place] [address] [email or web address] Gastroenterology 10/07/21 Harris Lennon MD [address] [place] [address], [address] [place] [address] [email or web address] Insurance Assigned Provider 12/17/23 Margarita Davidson RN [address] [place] [address], [address] [place] [address] [email or web address] PHCM Gunsmith ApprenticeGarage Hand 07/01/22 02/17/25 documented as of this encounter Additional Source Comments The information contained in this document represents components of the legal health record. It is not the complete legal health record.[facility]
--- OUTSIDE RECORDS SUMMARY | 2025-09-10 13:48 | XMS_ITS | Encounter Summary ---
Author Organization [facility] Address [address] [place] [address] Phone Care Team Providers Care Black Top Spreader Machine Operator Name Role Phone Harris Lennon MD Primary Care Provider [phone] Kory Vogt MD Unavailable Harris Lennon MD Unavailable [phone] Margarita Davidson RN Unavailable [email or web address] Encounter Details Date Type Department Care Team (Late st Contact Info) Description 08/02/2024 Procedure Pass [facility], [address] [id number] Social History Tobacco Use Types Packs/Day Years [...] Description 09/19/2025 1:45 PM EST Office Visit [facility] [address] [place] [address] Chan Cruz MD [address] [place] [address] Orthopedics & Sports Medicine, [place] [address] 10/01/2025 1:00 PM EST Office Visit [facility] [address] [place] [address] 3rd Floor, [address] [place] [address] Stacie Gruber PA-C 50 [place] [address] 01/30/2026 11:00 AM EDT Office Visit [facility] Primary Care Clinic [address] [place] [address] Harris Lennon MD 22 [facility], [address] [place] [address] 02/14/2026 10:10 AM EDT Office Visit [facility] Endocrinology Clinic [address] [place] [address] [place] [address] Talon Seth DO 22 [place] [address] [email or web address] documented as of this encounter Visit Diagnoses Not on filedocumented in this encounter Additional Health Concerns Assessment Noted Time PHQ-9 Depression Total Score: 15 018 2:17 PM EST PHQ-2 Depression Total Score: 0 09/06/20 24 10:43 AM EST documented as of this encounter Care Teams Black Top Spreader Machine Operator Relationship Specialty Start Date End Date Harris Lennon MD [address] [place] [address], [address] [place] [address] PCP - General Internal Medicine 01/16/21 Kory Vogt MD [address] [place] [address] [email or web address] Gastroenterology 10/07/21 Harris Lennon MD [address] [place] [address], [address] [place] [address] [email or web address] Insurance Assigned Provider 12/17/23 Margarita Davidson RN [address] [place] [address], [address] [place] [address] [email or web address] PHC Button ClamperBusiness Analytics Manager 07/01/22 02/17/25 documented as of this encounter Additional Source Comments The information contained in this document represents components of the legal health record. It is not the complete legal health record.[facility]
--- OUTSIDE RECORDS SUMMARY | 2025-09-10 13:48 | XMS_ITS | Encounter Summary ---
Author Organization [facility] Address [address] [place] [address] Phone Care Team Providers Care Dynamometer Mechanic Name Role Phone Harris Lennon MD Primary Care Provider [phone] Kory Vogt MD Unavailable Harris Lennon MD Unavailable [phone] Margarita Davidson RN Unavailable [email or web address] Jyoti Aviles OT Unavailable [phone] Encounter Details Date Type Department Care Team (Latest Contact Info) Description 08/02/2022 Transcribe Orders Virtual Department 30 [place] [address] Harris Lennon MD 22 [facility], [address] [place] [address] [email or web address] Breast screening (Primary Dx) Social [...] Complex Care [facility] 4 [place] [address] Chan Cruz MD [address] [place] [address] Orthopedics & Sports [place], [place] [address] 10/01/2025 1:00 PM EST Office Visit [facility] [address] [place] [address] 3rd Floor, [address] [place] [address] Stacie Gruber PA-C 50 [place] [address] 01/30/2026 11:00 AM EDT Office Visit [facility] Primary Care Clinic [address] [place] [address] [place] [address] Harris Lennon MD 22 [facility], [address] [place] [address] 02/14/2026 10:10 AM EDT Office Visit [facility] Endocrinology Clinic [address] [place] [address] [place] [address] Talon Seth DO 22 [place] [address] documented as of this encounter Results * [...] documented as of this encounter Care Teams Dynamometer Mechanic Relationship Specialty Start Date End Date Harris Lennon MD [address] [place] [address], [address] [place] [address] PCP - General Internal Medicine 01/16/21 Kory Vogt MD [address] [place] [address] Gastroenterology 10/07/21 Harris Lennon MD [address] [place] [address], [address] [place] [address] Insurance Assigned Provider 12/17/23 Margarita Davidson, MARIZOL [address] [place] [address], [address] [place] [address] PHCM Senior ParalegalDirector Television News 07/01/22 02/17/25 Jyoti Aviles, OT [address] [place] [address] Transitions Senior ParalegalCentral Station Operator Therapy 12/12/2312/14/23 documented as of this encounter Additional Source Comments The information contained in this document represents components of the legal health record. It is not the complete legal health record.[facility]
--- OUTSIDE RECORDS SUMMARY | 2025-09-10 13:48 | XMS_ITS | Encounter Summary ---
Author Organization [facility] Address [address] [place] [address] Phone Care Team Providers Care Radio Broadcaster Name Role Phone Damien Lance MD Primary Care Provide r Xuan Ferraro DO Primary Care Provider + [phone] Damien Lance MD Unavailable [phone] Xuan Ferraro DO Unavailable [phone] Harris Lennon MD Primary Care Provider + [phone] Kory Vogt MD Unavailable Xuan Ferraro DO Unavailable [phone] Harris Lennon MD Unavailable [phone] Margarita Davidson RN Unavailable [email or web address] Margarita Davidson RN Unavailable [email or web address] Jyoti Aviles OT Unavailable [phone] Encounter Details Date Type Department Care Team (Late st Contact Info) Description 10/17/2017 Procedure Pass [facility], Ct Scan - [address] [id number] Social History Tobacco Use Types Packs/Day Years [...] Description 09/19/2025 1:45 PM EST Office Visit [facility] [address] [place] [address] Chan Cruz MD [address] [place] [address] Orthopedics & Sports Medicine, [place] [address] 10/01/2025 1:00 PM EST Office Visit [facility] [address] [place] [address] 3rd Floor, [address] [place] [address] Stacie Gruber PA-C 50 [place] [address] 01/30/2026 11:00 AM EDT Office Visit [facility] Primary Care Clinic [address] [place] [address] [place] [address] Harris Lennon MD 22 [facility], [address] [place] [address] 02/14/2026 10:10 AM EDT Office Visit [facility] Endocrinology Clinic [address] [place] [address] [place] [address] Talon Seth DO 22 [place] [address] documented as of this encounter Visit Diagnoses [...] documented as of this encounter Care Teams Radio Broadcaster Relationship Specialty Start Date End Date Damien Lance MD [email or web address] PCP - General Internal Medicine 07/18/17 09/14/18 Xuan Ferraro DO [address] [place] [address] [email or web address] PCP - General 09/15/18 01/15/21 Harris Lennon MD 22 [facility], [address] [place] [address] [email or web address] PCP - General Internal Medicine 01/16/21 Damien Lance MD 22 [facility] Floor 1 [place] [address] [email or web address] Insurance Assigned Provider 07/16/17 06/09/19 Xuan Ferraro DO [address] [place] [address] [email or web address] Insurance Assigned Provider 06/09/19 10/06/21 Kory Vogt MD [address] [place] [address] [email or web address] Gastroenterology 10/07/21 Xuan Ferraro DO 9 [place] [address] [email or web address] Insurance Assigned Provider 06/09/19 12/19/21 Harris Lennon MD [address] [place] [address], [address] [place] [address] [email or web address] Insurance Assigned Provider 12/17/23 Margarita Davidson RN [address] [place] [address], [address] [place] [address] [email or web address] PHCM Foundry Metallurgist 06/02/22 06/29/22 Margarita Davidson RN [address] [place] [address], [address] [place] [address] [email or web address] PHC Foundry MetallurgistDirector Stars 07/01/22 02/17/25 Jyoti Aviles, OT [address] [place] [address] [email or web address] Transitions Foundry MetallurgistInspector Materials And Processes Therapy 12/12/2312/14/23 documented as of this encounter Additional Source Comments The information contained in this document represents components of the legal health record. It is not the complete legal health record.[facility]
--- OUTSIDE RECORDS SUMMARY | 2025-09-10 13:48 | XMS_ITS | Encounter Summary ---
Author Organization [facility] Address [address] [place] [address] Phone Care Team Providers Care Re Dye Hand Name Role Phone Xuan Ferraro DO Unavailable [phone] Harris Lennon MD Primary Care Provider [phone] Kory Vogt MD Unavailable Xuan Ferraro DO Unavailable [phone] Harris Lennon MD Unavailable [phone] Margarita Davidson RN Unavailable [email or web address] Margarita Davidson RN Unavailable [email or web address] Jyoti Aviles OT Unavailable [phone] Reason for Referral * MRI/CAT Scan - Closed Specialty Diagnoses / Procedures Referred By Contac t Referred To Contact Radiology Diagnoses RLQ abdominal pain Weight loss, abnormal Procedures CT Abdomen/Pelvis Javier Chauhan MD Phone: tel: fax: [email or web address] Referral ID Status Reason Start Date Expiration Date Visits Re quested Visits Authorized [id number] Closed 04/23/2021 04/23/2022 1 1 Encounter Details Date Type Department Care Team (Latest Contact Info) Description 04/23/2021 Transcribe Orders Virtual Department 30 [place] [address] Javier Chauhan MD [address] [place] [address] RLQ abdominal pain (Primary Dx); Weight loss, [...] 09/19/2025 1:45 PM EST Office Visit [facility] Clinic [address] [place] [address] Chan Cruz MD [address] [place] [address] Orthopedics & Sports Medicine, [facility] [place] [address] 10/01/2025 1:00 PM EST Office Visit [facility] [address] [place] [address] 3rd Floor, [address] [place] [address] Stacie Gruber PA-C 50 [place] [address] 01/30/2026 11:00 AM EDT Office Visit [facility] Primary Care Clinic [address] [place] [address] [place] [address] Harris Lennon MD 22 [facility], [address] [place] [address] 02/14/2026 10:10 AM EDT Office Visit [facility] Endocrinology [address] [place] [address] [address] Talon Seth DO 22 [place] [address] [email or web address] documented as of this encounter Results * [...] documented as of this encounter Care Teams Re Dye Hand Relationship Specialty Start Date End Date Harris Lennon MD [address] [place] [address], [address] [place] [address] [email or web address] PCP - General Internal Medicine 01/16/21 Xuan Ferraro DO [address] [place] [address] [email or web address] Insurance Assigned Provider 06/09/19 10/06/21 Kory Vogt MD [address] [place] [address] [email or web address] 10/07/21 Xuan Ferraro DO [address] [place] [address] [email or web address] Insurance Assigned Provider 06/09/19 12/19/21 Harris Lennon MD [address] [place] [address], [address] [place] [address] [email or web address] Insurance Assigned Provider 12/17/23 Margarita Davidson RN [address] [place] [address], [address] [place] [address] [email or web address] PHCM Microfilm Equipment Inspector 06/02/22 06/29/22 Margarita Davidson RN [address] [place] [address], [address] [place] [address] [email or web address] PHCM Microfilm Equipment InspectorAnalysis Or Research Safety Inspector 07/01/22 02/17/25 Jyoti Aviles, OT [address] [place] [address] [email or web address] Transitions Microfilm Equipment InspectorTeam Lead Therapy 12/12/2312/14/23 documented as of this encounter Additional Source Comments The information contained in this document represents components of the legal health record. It is not the complete legal health record.[facility]
--- OUTSIDE RECORDS SUMMARY | 2025-09-10 13:48 | XMS_ITS | Encounter Summary ---
Author Organization [facility] Address [address] [place] [address] Phone Care Team Providers Care District Wildlife Manager Name Role Phone Harris Lennon MD Primary Care Provider [phone] Kory Vogt MD Unavailable Harris Lennon MD Unavailable [phone] Margarita Davidson RN Unavailable [email or web address] Reason for Visit * Reason Onset Date Comments Error 08/14/2025 Encounter Details Date Type Department Care Team (Late st Contact Info) Description 05/01/2024 Telephone [facility] 22 [place] [address] Opal Billy, RN [address] [place] [phone] [email or web address] Error Social History Tobacco Use Types Packs/Day Years [...] Progress Notes * Opal Billy RN - 08/14/2025 4:09 PM EST This encounter was created in error - please disregard. * Opal Billy RN - 05/01/2024 11:31 AM EDT Dalila from [facility] calls to report critical INR [...] [facility] [address] [place] [address] Chan Cruz MD [address] [place] [address] Orthopedics & Sports Medicine, [facility] [place] [address] 10/01/2025 1:00 PM EST Office Visit [facility] 3rd Floor, [address] [place] [address] Stacie Gruber PA-C [address] [place] [address] 01/30/2026 11:00 AM EDT Office Visit [facility] [address] [place] [address] [place] [address] Harris Lennon MD [address] [place] [address], [address] [place] [address] 02/14/2026 10:10 AM EDT Office Visit [facility] End[facility]inology [facility] [address] [place] [address] Talon Seth DO 22 [place] [address] [email or web address] documented as of this encounter Visit Diagnoses Diagnosis ERRONEOUS ENCOUNTER--DISREGARD- Primary documented in this encounter Additional Health Concerns Assessment Noted Time PHQ-9 Depression Total Score: 15 018 2:17 PM EST PHQ-2 Depression Total Score: 0 06/22/20 23 1:25 PM EDT documented as of this encounter Care Teams District Wildlife Manager Relationship Specialty Start Date End Date Harris Lennon MD [address] [place] [address], [address] [place] [address] PCP - General Internal Medicine 01/16/21 Kory Vogt MD [address] [place] [address] [email or web address] Gastroenterology 10/07/21 Harris Lennon MD [address] [place] [address], [address] [place] [address] [email or web address] Insurance Assigned Provider 12/17/23 Margarita Davidson RN [address] [place] [address], [address] [place] [address] [email or web address] Photography TeacherBroadcast Director Operations 07/01/22 02/17/25 documented as of this encounter Additional Source Comments The information contained in this document represents components of the legal health record. It is not the complete legal health record.[facility]
--- OUTSIDE RECORDS SUMMARY | 2025-09-10 13:48 | XMS_ITS | Encounter Summary ---
Author Organization [facility] Address [address] [place] [address] Phone Care Team Providers Care Carpet Layer Name Role Phone Xuan Ferraro DO Primary Care Provider + [phone] Xuan Ferraro DO Unavailable [phone] Harris Lennon MD Primary Care Provider Kory Votg MD Unavailable Xuan Ferraro DO Unavailable [phone] Harris Lennon MD Unavailable [phone] Margarita Davidson RN Unavailable [email or web address] Margarita Davidson RN Unavailable [email or web address] Jyoti Aviles OT Unavailable [phone] Encounter Details Date Type Department Care Team (Late st Contact Info) Description 09/07/2019 Procedure Pass [facility] Endoscopy Admitting Dept Virtual Department [address] [place] [address] Social History Tobacco Use Types Packs/Day Years [...] 09/19/2025 1:45 PM EST Office Visit [facility] Orth[facility]ics and Sports Medicine Clinic 4 [place] [address] Chan Cruz MD [address] [place] [address] Orthopedics & Sports Medicine, [place] [address] 10/01/2025 1:00 PM EST Office Visit [facility] 22 [facility] 3rd Floor, [address] [place] [address] Stacie Gruber PA-C [address] [place] [address] 01/30/2026 11:00 AM EDT Office Visit [facility] Primary Care Clinic [address] [place] [address] Harris Lennon MD 22 [facility], [address] [place] [address] 02/14/2026 10:10 AM EDT Office Visit [facility] Endocrinology Clinic [address] [place] [address] Talon Seth DO 22 [place] [address] documented as of this encounter Visit Diagnoses [...] documented as of this encounter Care Teams Carpet Layer Relationship Specialty Start Date End Date Xuan Ferraro DO [address] [place] [address] [email or web address] PCP - General 09/15/18 01/15/21 Harris Lennon MD [address] [place] [address], [address] [place] [address] [email or web address] PCP - General Internal Medicine 01/16/21 Xuan Ferraro DO [address] [place] [address] [email or web address] Insurance Assigned Provider 06/09/19 10/06/21 Kory Vogt MD [address] [place] [address] [email or web address] 10/07/21 Xuan Ferraro DO [address] [place] [address] [email or web address] Insurance Assigned Provider 06/09/19 12/19/21 Harris Lennon MD [address] [place] [address], [address] [place] [address] [email or web address] Insurance Assigned Provider 12/17/23 Margarita Davidson, MARIZOL [address] [place] [address], [address] [place] [address] [email or web address] [facility] Assistant Farm Operations Manager 06/02/22 06/29/22 Margarita Davidson, RN 22 [facility], [address] [place] [address] [email or web address] PHCM Assistant Farm Operations ManagerGame Producer 07/01/22 02/17/25 Jyoti Aviles, OT [address] [place] [address] [email or web address] Transitions Assistant Farm Operations ManagerTap Dancer Therapy 12/12/2312/14/23 documented as of this encounter Additional Source Comments The information contained in this document represents components of the legal health record. It is not the complete legal health record.[facility]
--- OUTSIDE RECORDS SUMMARY | 2025-09-10 13:49 | XMS_ITS | Clinical Summary ---
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
--- OUTSIDE RECORDS SUMMARY | 2025-09-10 13:49 | XMS_ITS | Encounter Summary ---
Author Organization [facility] Address [address] [place] [address] Care Team Providers Care Senior Corporate Strategy Manager Name Role Phone Unavailable Primary Care Provider Unavailabl e Encounter Details Date Type Department Care Team (Late st Contact Info) Description 07/27/2016 Scanned Document [facility] Cardiothoracic Surgery [place] [address] [facility] [address] [place] [address] Manny Lindo MD [address] [facility] [address] [place] [address] Social History Tobacco Use Types Packs/Day Years [...]
--- OUTSIDE RECORDS SUMMARY | 2025-09-10 13:49 | XMS_ITS | Encounter Summary ---
Author Organization [facility] Address [address] [place] [address] Phone Care Team Providers Care Product Marketing Engineer Name Role Phone Xuan Ferraro DO Primary Care Provider + [phone] Damien Lance MD Unavailable Xuan Ferraro DO Unavailable [phone] Harris Lennon MD Primary Care Provider + [phone] Kory Vogt MD Unavailable Xuan Ferraro DO Unavailable [phone] Harris Lennon MD Unavailable [phone] Margarita Davidson RN Unavailable [email or web address] Margarita Davidson RN Unavailable [email or web address] Jyoti Aviles OT Unavailable [phone] Reason for Referral * Outpatient Procedure - Closed Specialty Diagnoses / Procedures Referred By Contac t Referred To Contact Diagnoses Aortic valve replaced History of thoracic aortic aneurysm repair Aortic valve stenosis, etiology of cardiac valve disease unspecified Procedures Adult Echo TTE Quinyc Lopez MD Phone: tel: fax: [email or web address] Referral ID Status Reason Start Date Expiration Date Visits Re quested Visits Authorized [id number] Closed 03/26/2019 03/25/2020 1 1 Encounter Details Date Type Department Care Team (Late st Contact Info) Description 03/26/2019 Ancillary Orders [facility] [address] [place] [address] Quincy Lopez MD [address] [place] [address] [email or web address] Aortic valve replaced; History of thoracic aortic [...] Description 09/19/2025 1:45 PM EST Office Visit [facility] [address] [place] [address] Chan Cruz MD [address] [place] [address] Orthopedics & Sports Medicine, [facility] [place] [address] 10/01/2025 1:00 PM EST Office Visit [facility] [address] [facility] 3rd Floor, [address] [place] [address] Stacie Gruber PA-C [address] [place] [address] 01/30/2026 11:00 AM EDT Office Visit [facility] [address] [place] [address] Harris Lennon MD [address] [place] [address], [address] [place] [address] 02/14/2026 10:10 AM EDT Office Visit [facility] End[facility]ology [facility] [address] [place] [address] Talon Seth DO [address] [place] [address] [email or web address] documented as of this encounter Results * [...] documented as of this encounter Care Teams Product Marketing Engineer Relationship Specialty Start Date End Date Xuan Ferraro DO [address] [place] [id number] [email or web address] PCP - General 09/15/18 01/15/21 Harris Lennon MD [address] [place] [address], [address] [place] [address] [email or web address] PCP - General Internal Medicine 01/16/21 Damien Lance MD [address] [place] [address] Floor 1 [place] [address] [email or web address] Insurance Assigned Provider 07/16/17 06/09/19 Xuan Ferraro DO [address] [place] [address] [email or web address] Insurance Assigned Provider 06/09/19 10/06/21 Kory Vogt MD [address] [place] [address] [email or web address] Gastroenterology 10/07/21 Xuan Ferraro DO [address] [place] [email or web address] Insurance Assigned Provider 06/09/19 12/19/21 Harris Lennon MD [address] [place] [address], [address] [place] [address] [email or web address] Insurance Assigned Provider 12/17/23 Margarita Davidson, RN [address] [place] [address], [address] [place] [address] [email or web address] Drug Discovery Informatics Specialist 06/02/22 06/29/22 Margarita Davidson, RN [address] [facility], [address] [place] [address] [email or web address] PHCM Drug Discovery Informatics SpecialistChoirmaster 07/01/22 02/17/25 Jyoti Aviles, OT [address] [place] [address] [email or web address] Transitions Drug Discovery Informatics SpecialistHealth Systems Analyst Therapy 12/12/2312/14/23 documented as of this encounter Additional Source Comments The information contained in this document represents components of the legal health record. It is not the complete legal health record.[facility]
--- OUTSIDE RECORDS SUMMARY | 2025-09-10 13:49 | XMS_ITS | Clinical Summary ---
Author Organization [facility] Address [address] [place] [address] Phone Care Team Providers Care Wall Taper Name Role Phone Harris Lennon MD Primary Care Provider [phone] Kory Vogt MD Unavailable Harris Lennon MD Unavailable [phone] Allergies Active Allergy Reactions Criticality Noted Date Comments Donepezil Diarrhea High 04/17/2018 Nitrofurantoin Monohyd/M-Cryst 08/01 Memantine 03/07/2018 Rage Penicillins Diarrhea 07/28/2017 Oxycodone-Acetaminophen Rash Low 07/18/2017 Sulfa (Sulfonamide Antibiotics) Rash Low 02/2017 Oseltamivir Diarrhea Low 10/05/2017 Medications cholecalciferol (VITAMIN D3) 25 MCG (1,000 unit) tablet Take 1,000 Units by mouth daily. Active cranberry 400 mg Cap capsuleIndicatio ns:Gummy Take by mouth. Indications: Gummy Active cyanocobalamin, vitamin B-12, (VITAMIN B12 ORAL) Take by mouth. Activ e biotin 2,500 mcg Cap Take 5,000 mcg by mouth. Active calcium carbonate/vitami n D3 (CALCIUM 600 + D,3, ORAL) Take 2 capsules by mouth daily. Ca-1200mg D3-1000iu Active Lactobac no.41/Bifidobact no.7 (PROBIOTIC-10 ORAL) Take by mouth. Activ e ascorbic acid, vitamin C, (VITAMIN C) 500 MG tablet Take 1,000 mg by mouth daily. Active GAS RELIEF, SIMETHICONE, ORAL Take 1 tablet by mouth daily as needed. Active psyllium (METAMUCIL) Powd Take 1 teaspoonful by mouth daily. 3 g = 1 teaspoonful (5 mL) Active fluticasone propion-salmeter oL (ADVAIR DISKUS) 500-50 mcg/dose DISKUSIndication s:Intermittent asthma INHALE 1 PUFF BY MOUTH TWICE A DAY 180 each 3 07/26/20 22 Active methenamine (HIPREX) 1 gram tablet Take 1 g by mouth 2 (two) times a day with meals. Active magnesium oxide 500 mg Tab Take by mouth. Acti ve acetaminophen (TYLENOL) 650 MG CR tabletIndication s:Spinal stenosis of lumbar region with neurogenic claudication [...] 1 HOUR BEFORE APPOINTMENT 12/26/19 24 Active mirtazapine (REMERON) 7.5 MG tabletIndication s:Anxiety,Psycho physiological insomnia TAKE 1 TABLET BY MOUTH EVERYDAY AT BEDTIME 90 tablet 3 10/31/19 25 Active alendronate (FOSAMAX) 70 MG tabletIndication s:Other osteoporosis without current pathological fracture Take 1 tablet (70 mg total) by mouth every 7 days. Take in the morning with a full glass of water, on an empty stomach, and do not take anything else by mouth or lie down for the next 30 min. 12 tablet 3 03/18/20 25 Active atorvastatin (LIPITOR) 40 MG tabletIndication s:Hypercholester olemia Take 1 tablet (40 mg total) by mouth daily. 90 tablet 1 04/09/20 25 Active warfarin (COUMADIN) 2.5 MG tabletIndication s:Paroxysmal atrial fibrillation TAKE 2 TABLETS BY MOUTH ON TUESDAY, TUESDAY, TUESDAY, AND 1 TABLET ON ALL OTHER DAYS, OR DIRECTED BY THE ANTICOAGULATION CLINIC 130 tablet 3 04/12/20 25 Active losartan (COZAAR) 50 MG tabletIndication s:Essential hypertension Take 1 tablet (50 mg total) by mouth daily. 90 tablet 3 05/14/20 25 Active metoprolol succinate (TOPROL-XL) 25 MG 24 hr tabletIndication s:Paroxysmal atrial fibrillation TAKE 3 TABLETS BY MOUTH DAILY 270 tablet 3 07/08/20 25 Active estradioL (ESTRACE) 0.01 % (0.1 mg/gram) vaginal creamIndications :Mixed stress and urge urinary incontinence Place 2 g vaginally 2 (two) times a week. 42.5 g 5 08/01/20 25 Active Active Problems Problem Noted Date Diagnosed Date [...] will meet with Dr. Skelton in the [facility] system for continued management of her aortic [...] 2016. She remains asymptomatic. She follows with [facility] Dr. Skelton whom she most recently saw [...] this 30 minute visit was spent in [id number] conversation with the patient going over her [...] Overview (10/07/2021): Medications managed by psychiatrist in [place] Assessment & Plan (03/07/2025 11:10 AM EDT): [...] bone density. 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 Assessment & [...] hospital encounter of 05/18/19 (from the past 12669 hour(s)) DXA Monitoring Addendum: 05/25/2019 In addition [...] hospital encounter of 05/18/19 (from the past 40445 hour(s)) DXA Monitoring Addendum: 05/25/2019 In addition [...] hospital encounter of 05/18/19 (from the past 20265 hour(s)) DXA Monitoring Addendum: 05/25/2019 In addition [...] hospital encounter of 05/18/19 (from the past 32679 hour(s)) DXA Monitoring Addendum: 05/25/2019 In addition [...] fibrillation 07/18/2017 Overview (02/15/2022): Anticoagulation managed by [facility] clinic Assessment & Plan (07/30/2025 11:19 [...] Encounters Date Type Department Care Team Description 09/09/2025 10:51 AM EST - 09/09/2025 11:59 PM EST Hospital Encounter [facility] [address] [place] [address] [place] [address] Stacie Gruber PA-C Arrived Discharge Disposition: Home or Self Care 07/31/2025 Telephone [facility] Primary Care [address] [place] [address] Francine Reed RN Results 07/30/2025 10:45 AM EST Office Visit [facility] [address] [place] [address] Harris Lennon MD Essential hypertension (Primary Dx); Paroxysmal atrial fibrillation; Late onset Alzheimer's dementia without behavioral disturbance; Mixed stress and urge urinary incontinence 07/08/2025 Telephone [facility] Primary Care [facility] [address] [place] [address] Krissy Jarvis Results 07/07/2025 Refill [facility] [address] [place] [address] Harris Lennon MD Medication Refill 04/08/2025 Procedure Pass [facility] [address] [place] [address] from Last 3 Months Immunizations Immunization Administration [...] Pressure 136/74 09/09/2025 10:51 AM EST Pulse 64 07/30/2025 10:50 AM EST Temperature 36.8 C (98.3 F) 07/30/2025 10:41 AM EST Respiratory Rate 16 06/16/2024 2:07 PM EDT Oxygen Saturation 97% 07/30/2025 10: 41 AM EST Inhaled Oxygen Concentration - - Weight 68.9 kg (151 lb 14.4 oz) 025 10:51 AM EST Height 154.9 cm (5' 0.98 ) 09/09/2025 1 0:51 AM EST Body Mass Index 28.72 09/09/2025 10:51 AM EST Plan of Treatment Upcoming Encounters Date Type Department Care Team (Late st Contact Info) Description 09/19/2025 1:45 PM EST Office Visit [facility] [address] [place] [address] Chan Cruz MD [address] [place] [address] Orthopedics & Sports Medicine, [place], [place] [id number] 10/01/2025 1:00 PM EST Office Visit [facility] [address] [facility] 3rd Floor, [address] [place] [address] Stacie Gruber PA-C [address] [place] [address] 01/30/2026 11:00 AM EDT Office Visit [facility] [address] [place] [address] [place] [address] Harris Lennon MD 22 [facility], [address] [place] [address] 02/14/2026 10:10 AM EDT Office Visit [facility] Endocrinology Clinic [address] [place] [address] Jazzmine Seth DO [address] [place] [address] Health Maintenance Due Date Last Done Comments LIPID PANEL 01/18/2024 01/17/2019, 05/0 04/2019, 08/26/2017, Additional history exists DEPRESSION SCREENING 09/06/2025 09/06/2024, 08/21/20 18 COVID-19 VACCINE ( season) 2025 05/29/2025, 06/28/2024, 06/18/2023, Additional history exists BLOOD PRESSURE 01/27/2026 07/30/2025 CREATININE LEVEL 07/30/2026 [...] this topic Medical Devices Implanted Type Area Bisque Placer Device Identifier Shelf Expiration Date Model / [...] * (ABNORMAL) PT-INR (07/30/2025 11:27 AM EST) [facility] PT 22.4(H) 10.0 - 13.0 sec 07/30/2025 4:02 PM EST [facility] INR 1.8(H) 0.9 - 1.1 07/30/2025 4:02 PM [facility] Comment:Therapeutic Range 2. 0 - 3.5 Blood (Blood) Venipuncture / Unknown 07/30/2025 11:27 AM EST 07/30/2025 11:28 AM EST us Harris Lennon MD LAB BLOOD BKR ORDERABLES F inal Result [address] [address] * CBC (07/30/2025 11:27 AM EST) WBC 7.61 4.00 - 11.00 K/uL 07/30/2025 4:01 PM [facility] RBC 4.02 4.00 - 5.20 M/uL 07/30/2025 4:01 PM [facility] Hemoglobin 12.3 12.0 - 16.0 g/dL 07/30/2025 4:01 PM [facility] Hematocrit 38.1 36.0 - 46.0 % 07/30/2025 4:01 PM [facility] MCV 94.8 80.0 - 100.0 fL 07/30/2025 4:01 PM [facility] MCH 30.6 27.0 - 31.0 pg 07/30/2025 4:01 PM [facility] MCHC 32.3 32.0 - 36.0 g/dL 07/30/2025 4:01 PM [facility] PLT 349 150 - 450 K/uL 07/30/2025 4:01 PM [facility] MPV 9.8 8.4 - 12.0 fL 07/30/2025 4:01 PM [facility] RDW-CV 13.2 11.5 - 14.5 % 07/30/2025 4:01 PM [facility] Absolute NRBC 0.00 <=0.00 K cells/uL 07/30/2025 4:01 PM [facility] NRBC 0.0 <=0.0 /100 WBCs 07/30/2025 4:01 PM [facility] Blood (Blood) Venipuncture / Unknown 07/30/2025 11:27 AM EST 07/30/2025 11:28 AM EST Harris Lennon MD LAB BLOOD BKR ORDERABLES F inal Result Performing Organization Address City/[facility]/ZIP Co de Phone Number [address] [address] * Basic Metabolic Panel (BMP) (07/30/2025 11:27 AM EST) [facility] Sodium 136 136 - 145 mmol/L 07/30/2025 4:21 PM [facility] Potassium 4.7 3.4 - 5.1 mmol/L 07/30/2025 4:21 PM [facility] Chloride 99 98 - 107 mmol/L 07/30/2025 4:21 PM [facility] CO2 25 20 - 31 mmol/L 07/30/2025 4:21 PM [facility] Anion Gap 12 3 - 17 mmol/L 07/30/2025 4:21 PM [facility] BUN 14 6 - 23 mg/dL 07/30/2025 4:21 PM [facility] Creatinine 0.70 0.50 - 1.00 mg/dL 07/30/2025 4:21 PM [facility] eGFR 87 >59 mL/min/1.7 3m2 07/30/2025 4:21 PM [facility] Comment:Estimated glomerular filtration rate calculated using the CKD-EPI refit equation. Glucose 94 70 - 99 mg/dL 07/30/2025 4:21 PM [facility] Calcium 9.8 8.5 - 10.5 mg/dL 07/30/2025 4:21 PM [facility] Blood (Blood) Venipuncture / Unknown 07/30/2025 11:27 AM EST 07/30/2025 11:28 AM EST Harris Lennon MD LAB BLOOD BKR ORDERABLES F inal Result Performing Organization Address City/[facility]/ZIP Co de Phone Number [address] [address] * BD DXA HIP AND FOREARM (03/11/2025 11:16 AM EDT) Anatomical Region Laterality Modality Bone Density Bone Density 03/11/2025 11:1 4 AM EDT Impressions 03/12/2025 10:13 AM EDT Interpretation: Osteoporosis. Narrative 03/12/2025 10:13 AM EDT Referred By: JAZZMINE SETH Indications: Osteoporosis Scanner: IntegriChain A with serial# of [id number] located at [facility] Bone Density Scan (DXA) 03/11/25 Details of [...] -2.5), or Osteoporosis (T-score <= -2.5). At [facility], T-scores are compared to peak bone density [...] and prior bone density results. Procedure Note Liedy Hyatt MD - 03/12/2025 Referred By: JAZZMINE SETH Indications: Osteoporosis Scanner: IntegriChain A with serial# of [id number] located at [facility] Bone Density Scan (DXA) 03/11/25 Details [...] -2.5), or Osteoporosis (T-score <= -2.5). At [facility], T-scores are compared to peak bone density [...] andprior bone density results. IMPRESSION: Interpretation: Osteoporosis. us Jazzmine Seth DO IMG BD BONE DENSITY DEXA Final R esult * (ABNORMAL) Lipid panel (01/17/2019 7:43 AM EDT) HDL 69 mg/dL [facility] Comment: Interpretation <40 mg/dL: Low HDL cholesterol (major risk factor for CHD) Greater than or equal to 60 mg/dL: High HDL cholesterol ( negative risk factor for CHD) HDL - cholesterol is affected by a number of factors, e.g. smoking, excerise, hormones, sex and age. CHOLESTEROL 168 0 - 240 mg/dL [facility] TRIGLYCERIDES 68 30 - 160 mg/dL [facility] LDL 85 50 - 129 mg/dL [facility] Comment: LDL levels in terms of risk for coronary heart disease: <100 mg/dL: Optimal 100-129 mg/dL: Near or above optimal 130-159 mg/dL: Borderline high 160-189 mg/dL: High >190 mg/dL: Very High CARDIAC RISK RATIO 2.4(L) 3.3 - 4.4 C [facility] Blood 01/17/2019 7:43 AM EDT 01/17/2019 7:46 AM EDT us Xuan Ferraro DO LAB BLOOD BKR ORDERABLES F inal Result [facility] [address] [place] [address] from Last 3 Months or Most Recently Relevant to Health Maintenance Insurance MEDICARE PART A & B Member Subscriber Plan / Payer ( fective 2009-Present) Name:Lindsey José Member ID:[id number] Relation to Subscriber:Self Name:Lindsey José Subscriber ID:[id number] Payer ID:[id number] Group ID:Not on file Type:Medicare Address: [employer] [address] [employer] MEDEX SUPPLEMENT MEDICARE PART A & B HOTEL Top-Level Domain MEDEX SUPPLEMENT MEDICARE PART A & B HOTEL Top-Level Domain MEDEX SUPPLEMENT MEDICARE PART A & B HOTEL Top-Level Domain MEDEX SUPPLEMENT MEDICARE PART A & B HOTEL Top-Level Domain MEDEX SUPPLEMENT MEDICARE PART A & B Member Subscriber Plan / Payer ( fective 2009-) Name:Lindsey José Member ID:[id number] Relation to Subscriber:Self Name:Lindsey José Subscriber ID:[id number] Payer ID:[id number] Group ID:Not on file Type:Medicare Address: [employer] [address] [place] [phone] HOTEL Top-Level Domain MEDEX SUPPLEMENT MEDICARE PART A & B [employer] MEDEX SUPPLEMENT MEDICARE PART A & B Member Subscriber Plan / Payer ( fective 2009-Present) Name:Lindsey José Member ID:[id number] Relation to Subscriber:Self Name:Lindsey José Subscriber ID:[id number] Payer ID:[id number] Group ID:Not on file Type:Medicare Address: [employer] [address] [place] [phone] HOTEL Top-Level Domain MEDEX SUPPLEMENT MEDICARE PART A & B HOTEL Top-Level Domain MEDEX SUPPLEMENT Advance Directives For more information, please contact: [phone] (9AM - 5PM [facility], Tuesday-Tuesday) * DNR/DNI (No CPR/No Intubation) (Latest Code Status on File) Date Activated Date Inactivated Comments 12/09/2023 7:13 PM Question Answer Comments Code Status Confirmed With: Patient Code Discussion Comments: per d/w patient 4 * Full Code (Confirmed) Date Activated Date Inactivated Comments 10/12/2017 7:49 PM 10/14/2017 2:44 PM Question Answer Comments Code Discussion Comments: patient Care Teams Wall Taper Relationship Specialty Start Date End Date Harris Lennon MD [address] [place] [address], [address] [place] [address] PCP - General Internal Medicine 01/16/21 Kory Vogt MD [address] [place] [address] Gastroenterology 10/07/21 Harris Lennon MD [address] [place] [address], [address] [place] [address] Insurance Assigned Provider 12/17/23 Additional Source Comments The information contained in this document represents components of the legal health record. It is not the complete legal health record.[facility]
--- OUTSIDE RECORDS SUMMARY | 2025-09-10 13:49 | XMS_ITS | Encounter Summary ---
Author Organization [facility] Address [address] [place] [address] Phone Care Team Providers Care Tax Collection Coordinator Name Role Phone Xuan Ferraro DO Primary Care Provider + [phone] Xuan Ferraro DO Unavailable [phone] Harris Lennon MD Primary Care Provider Kory Vogt MD Unavailable Xuan Ferraro DO Unavailable [phone] Harris Lennon MD Unavailable [phone] Margarita Davidson RN Unavailable [email or web address] Margarita Davidson RN Unavailable [email or web address] Jyoti Aviles OT Unavailable [phone] Encounter Details Date Type Department Care Team (Late st Contact Info) Description 05/23/2020 Procedure Pass [facility], [address] [address] Social History Tobacco Use Types Packs/Day Years [...] Description 09/19/2025 1:45 PM EST Office Visit [facility] [address] [place] [address] Chan Cruz MD [address] [place] [address] Orthopedics & Sports Medicine, [place] [address] 10/01/2025 1:00 PM EST Office Visit [facility] [address] [facility] 3rd Floor, [address] [place] [address] Stacie Gruber PA-C [address] [place] [address] 01/30/2026 11:00 AM EDT Office Visit [facility] Care Clinic [address] [place] [address] Harris Lennon MD 22 [facility], [address] [place] [address] 02/14/2026 10:10 AM EDT Office Visit [facility] Endocrinology Clinic [address] [place] [address] Talon Seth DO [address] [place] [address] documented as of this encounter Visit Diagnoses [...] documented as of this encounter Care Teams Tax Collection Coordinator Relationship Specialty Start Date End Date Xuan Ferraro DO [address] [place] [address] [email or web address] PCP - General 09/15/18 01/15/21 Harris Lennon MD [address] [place] [address], [address] [place] [address] [email or web address] PCP - General Internal Medicine 01/16/21 Xuan Ferraro DO [address] [place] [phone] [email or web address] Insurance Assigned Provider 06/09/19 10/06/21 Kory Vogt MD [address] [place] [address] [email or web address] [email or web address] 10/07/21 Xuan Ferraro DO [address] [place] [address] [email or web address] Insurance Assigned Provider 06/09/19 12/19/21 Harris Lennon MD [address] [place] [address], [address] [place] [address] [email or web address] Insurance Assigned Provider 12/17/23 Margarita Davidson RN [address] [place] [address], [address] [place] [address] [email or web address] [facility] 7[facility] Grade Social Studies Teacher 06/02/22 06/29/22 Margarita Davidson, RN [address] [facility], [address] [place] [address] [email or web address] 7Th Grade Social Studies TeacherJunior Accountant Bookkeeper 07/01/22 02/17/25 Jyoti Aviles, OT [address] [place] [address] [email or web address] Transitions 7Th Grade Social Studies TeacherMiller First Therapy 12/12/2312/14/23 documented as of this encounter Additional Source Comments The information contained in this document represents components of the legal health record. It is not the complete legal health record.[facility]
--- OUTSIDE RECORDS SUMMARY | 2025-09-10 13:49 | XMS_ITS | Encounter Summary ---
Author Organization [facility] Address [address] [place] [address] Phone Care Team Providers Care Manufacturing Quality Engineer Name Role Phone Xuan Ferraro DO Primary Care Provider + [phone] Xuan Ferraro DO Unavailable [phone] Harris Lennon MD Primary Care Provider Kory Vogt MD Unavailable Xuan Ferraro DO Unavailable +[phone] Harris Lennon MD Unavailable [phone] Margarita Davidson RN Unavailable [email or web address] Margarita Davidson RN Unavailable [email or web address] Jyoti Aviles OT Unavailable [phone] Encounter Details Date Type Department Care Team (Late st Contact Info) Description 05/23/2020 Procedure Pass [facility], [address] [address] Social History Tobacco Use Types Packs/Day Years [...] 09/19/2025 1:45 PM EST Office Visit [facility] [address] [place] [address] Chan Cruz MD [address] [place] [address] Orthopedics & Sports [place], [place] [address] 10/01/2025 1:00 PM EST Office Visit [facility] [address] [place] [address] 3rd Floor, [address] [place] [address] Stacie Gruber PA-C 50 [place] [address] 01/30/2026 11:00 AM EDT Office Visit [facility] [address] [place] [address] [place] [address] Harris Lennon MD 22 [facility], [address] [place] [address] 02/14/2026 10:10 AM EDT Office Visit [facility] Endocrinology Clinic [address] [place] [address] Talon Seth DO 22 [place] [address] [email or web address] documented as of this encounter Visit Diagnoses Not on filedocumented in this encounter Additional Health Concerns Infection Onset Date Last Indicated Resolved Time CoV-Risk 08/21/2022 08/21/2022 09/01/2022 1:23 AM EST CoV-Risk 11/16/2023 11/16/2023 11/27/2023 1:21 AM EDT Assessment Noted Time PHQ-9 Depression Total Score: 15 018 2:17 PM EST PHQ-2 Depression Total Score: 0 05/02/20 11:37 AM EDT documented as of this encounter Care Teams Manufacturing Quality Engineer Relationship Specialty Start Date End Date Xuan Ferraro DO [address] [place] [address] [email or web address] PCP - General 09/15/18 01/15/21 Harris Lennon MD [address] [place] [address] [email or web address] PCP - General Internal Medicine 01/16/21 Xuan Ferraro DO [address] [place] [address] [email or web address] Insurance Assigned Provider 06/09/19 10/06/21 Kory Vogt MD [address] [place] [address] [email or web address] Gastroenterology 10/07/21 Xuan Ferraro DO [address] [place] [address] [email or web address] Insurance Assigned Provider 06/09/19 12/19/21 Harris Lennon MD [address] [place] [address], [address] [place] [address] [email or web address] Insurance Assigned Provider 12/17/23 Margarita Davidson RN [address] [place] [address], [address] [place] [address] [email or web address] PHCM Cleaning Staff Supervisor 06/02/22 06/29/22 Margarita Davidson RN [address] [place] [address], [address] [place] [address] [email or web address] PHC Cleaning Staff SupervisorDirector Of Strategic Partnerships 07/01/22 02/17/25 Jyoti Aviles, OT [address] [place] [address] [email or web address] Transitions Cleaning Staff SupervisorStation Cashier Therapy 12/12/2312/14/23 documented as of this encounter Additional Source Comments The information contained in this document represents components of the legal health record. It is not the complete legal health record.[facility]
--- OUTSIDE RECORDS SUMMARY | 2025-09-10 13:49 | XMS_ITS | Encounter Summary ---
Author Organization [facility] Address [address] [place] [address] Phone Care Team Providers Care Leather Colorer Name Role Phone Xuan Ferraro DO Primary Care Provider + [phone] Xuan Ferraro DO Unavailable [phone] Harris eLnnon MD Primary Care Provider Kory Vogt MD Unavailable Xuan Ferraro DO Unavailable [phone] Harris Lennon MD Unavailable [phone] Margarita Davidson RN Unavailable [email or web address] Margarita Davidson RN Unavailable [email or web address] Jyoti Aviles OT Unavailable [phone] Reason for Referral * MRI/CAT Scan - Closed Specialty Diagnoses / Procedures Referred By Kelvin t Referred To Contact Radiology Diagnoses Low back pain, unspecified back pain laterality, unspecified chronicity, unspecified whether sciatica present Procedures CT Lumbar Spine John Cook DO Phone: tel: fax: [email or web address] Referral ID Status Reason Start Date Expiration Date Visits Re quested Visits Authorized [id number] Closed 07/02/2020 07/02/2021 1 1 Encounter Details Date Type Department Care Team (Latest Contact Info) Description 07/02/2020 Transcribe Orders Virtual Department 30 [place] [address] John Cook, [address] [place] [address] [email or web address] Low back pain, unspecified back pain laterality, [...] Description 09/19/2025 1:45 PM EST Office Visit [facility] [address] [place] [address] Chan Cruz MD [address] [place] [address] Orthopedics & Sports Medicine, [facility] [place] [address] 10/01/2025 1:00 PM EST Office Visit [facility] 22 [facility] 3rd Floor, [address] [place] [address] Stacie Gruber PA-C 50 [place] [address] 01/30/2026 11:00 AM EDT Office Visit [facility] Primary Care Clinic [address] [place] [address] Harris Lennon MD 22 [facility], [address] [place] [address] [email or web address] 02/14/2026 10:10 AM EDT Office Visit [facility] Endocrinology [address] [place] [address] Talon Seth DO [address] [place] [address] [email or web address] documented as of this encounter Results * [...] BACK PAIN , S/P FUSION OF SPINESURGERY 2017 TECHNIQUE: CT of the lumbar spine [...] documented as of this encounter Care Teams Leather Colorer Relationship Specialty Start Date End Date Xuan Ferraro DO [address] [place] [address] [email or web address] PCP - General 09/15/18 01/15/21 Harris Lennon MD [address] [place], [place] [address] [place] [address] [email or web address] PCP - General Internal Medicine 01/16/21 Xuan Ferraro DO [address] [place] [address] [email or web address] Insurance Assigned Provider 06/09/19 10/06/21 Kory Vogt MD [address] [place] [address] [email or web address] [email or web address] 10/07/21 Xuan Ferraro DO [address] [place] [address] [email or web address] Insurance Assigned Provider 06/09/19 12/19/21 Harris Lennon MD [address] [place] [address], [address] [place] [address] [email or web address] Insurance Assigned Provider 12/17/23 Margarita Davidson RN [address] [place] [address], [address] [place] [address] [email or web address] PHCM Mulcher Operator 06/02/22 06/29/22 Margarita Davidson RN [address] [place] [address], [address] [place] [address] [email or web address] PHC Mulcher OperatorHospice Physician 07/01/22 02/17/25 Jyoti Aviles, OT [address] [place] [address] [email or web address] Transitions Mulcher OperatorResource Director Therapy 12/12/2312/14/23 documented as of this encounter Additional Source Comments The information contained in this document represents components of the legal health record. It is not the complete legal health record.[facility]
--- OUTSIDE RECORDS SUMMARY | 2025-09-10 13:49 | XMS_ITS | Encounter Summary ---
Author Organization [facility] Address [address] [place] [address] Phone Care Team Providers Care Cloth Edge Singer Name Role Phone Zeina BurnsSW Unavailable Unavailab Damien Foley MD Unavailable [phone] Gabriel Fay MD Unavailable [email or web address] Darryl Hooks MD Unavailable Yury Eugene EXPANDER MACHINE OPERATOR Unavailable Merle Morrell MD Unavailable Christiano Alfaro MD Unavailable [phone] Kanchan Chow EXPANDER MACHINE OPERATOR Unavailable [phone] Allen Quevedo MD Unavailable Sheng Hermosillo MD Unavailable [phone] Talon Beaulieu MD Unavailable [phone] Cece Perez MD Unavailable Allen Oleary MD Unavailable Tea Lamb MD Unavailable Tatianna Killian CNP Unavailable Sheng Saldivar MD Unavailable Evan Hi MD Unavailable [phone] Damien Lance MD Unavailable [phone] Damien Lance MD Primary Care Provide r Xuan Ferraro DO Primary Care Provider [phone] Damien Lance MD Unavailable [phone] Xuan Ferraro DO Unavailable [phone] Harris Lennon MD Primary Care Provider [phone] Kory Vogt MD Unavailable Xuan Ferraro DO Unavailable +[phone] Harris Lennon MD Unavailable + Margarita Davidson RN Unavailable [email or web address] Margarita Davidson RN Unavailable [email or web address] OT Unavailable [phone] Encounter Details Date Type Department Care Team (Late st Contact Info) Description 09/07/2017 Procedure Pass [facility] Endoscopy Admitting Dept Virtual Department [address] [place] [address] Social History Tobacco Use Types Packs/Day Years [...] 09/19/2025 1:45 PM EST Office Visit [facility] [address] [place] [address] Chan Cruz MD [address] [place] [address] Orthopedics & Sports Medicine, [place] [address] 10/01/2025 1:00 PM EST Office Visit [facility] 22 [facility] 3rd Floor, [address] [place] [address] Stacie Gruber PA-C 50 [place] [address] 01/30/2026 11:00 AM EDT Office Visit [facility] 22 [place] [address] Harris Lennon MD 22 [facility], [address] [place] [address] 02/14/2026 10:10 AM EDT Office Visit [facility] Endocrinology Clinic [address] [place] [address] Talon Seth DO 22 [place] [address] documented as of this encounter Visit Diagnoses [...] documented as of this encounter Care Teams Cloth Edge Singer Relationship Specialty Start Date End Date Damien Lance MD [address] [place] [address] [email or web address] PCP - General Internal Medicine 07/18/17 09/14/18 Xuan Ferraro DO [address] [place] [address] [email or web address] PCP - General 09/15/18 01/15/21 Harris Lennon MD [address] [place] [address], [address] [place] [address] PCP - General Internal Medicine 01/16/21 Zeina Burns [facility] Historical LMR Provider 07/03/17 09/21/17 Damien Lance MD 22 [facility] Floor 1 [place] [address] [email or web address] Historical LMR Provider 07/03/17 09/21/17 Gabriel Fay MD [email or web address] Historical LMR Provider 07/03/17 09/21/17 Darryl Hooks MD [address] [place] [address], [address] [place] [address] Historical LMR Provider 07/03/17 Yury Hawley NP [address] [place] [address] 2_[place] [address] [email or web address] Historical LMR Provider 07/03/17 09/21/17 Merle Morrell MD [address] [place] [address], 2nd [place] [address] Historical LMR Provider 07/03/1709/21 Christiano Alfaro MD 22 [facility], [address] [place] [address] Historical LMR Provider 07/03/17 09/21/17 Kanchan Chow NP [address] [place] [address] [place] [address] Historical LMR Provider 07/03/1709/21 Allen Quevedo MD [address] [place] [address] [address] [place] [address] [email or web address] Historical LMR Provider 07/03/17 09/21/17 Sheng Hermosillo MD [address] [place] [address], [address] [place] [address] Historical LMR Provider 07/03/17 09/21/17 Talon Beaulieu MD [address] [place] [address], [address] [place] [address] Historical LMR Provider 07/03/17 Cece Perez MD [address] [place] [address] Orthopedics & Sports Medicine, [place] [address] Historical LMR Provider 07/03/17 09/21/17 Allen Oleary MD [address] [place] [address] Historical LMR Provider 07/03/1709/21 Tea Lamb MD [address] [place] [address] [email or web address] Historical LMR Provider 07/03/17 09/21/17 Tatianna Killian CNP 22 [facility], [address] [place] [address] Historical LMR Provider 07/03/1709/21 Sheng Saldivar MD [address] [place] [address] Historical LMR Provider 07/03/17 8 Evan Hi MD 10 [facility] 1 [place] [address] [email or web address] Historical LMR Provider 07/03/17 09/21/17 Damien Lance MD 22 [facility] 1 [place] [address] [email or web address] Insurance Assigned Provider 07/16/17 09/21/17 Damien Lance MD 22 [facility] 1 [place] [address] [email or web address] Insurance Assigned Provider 07/16/17 06/09/19 Xuan Ferraro DO [address] [place] [address] [email or web address] Insurance Assigned Provider 06/09/19 10/06/21 Kory Vogt MD 10 [facility] 2 [place] [address] Gastroenterology 10/07/21 Xuan Ferraro DO [address] [place] [address] @[email or web address] - [employer] Insurance Assigned Provider 06/09/19 12/19/21 Harris Lennon MD [address] [place] [address], [address] [place] [address] Insurance Assigned Provider 12/17/23 Margarita Davidson RN [address] [place] [address], [address] [place] [address] [email or web address] PHCM Deputy Coroner 06/02/22 06/29/22 Margarita Davidson RN [address] [place] [address], [address] [place] [address] [email or web address] PHCM Deputy CoronerBiology Specimen Technician 07/01/22 02/17/25 Jyoti Avilse, OT [address] [place] [address] [email or web address] [email or web address] Deputy CoronerSenior Tax Accountant Therapy 12/12/23 12/14/23 documented as of this encounter Additional Source Comments The information contained in this document represents components of the legal health record. It is not the complete legal health record.[facility]
--- OUTSIDE RECORDS SUMMARY | 2025-09-10 13:49 | XMS_ITS | Encounter Summary ---
Author Organization [facility] Address [address] [place] [address] Phone Care Team Providers Care Corporation Secretary Name Role Phone Xuan Ferraro DO Primary Care Provider + [phone] Xuan Ferraro DO Unavailable [phone] Harris Lennon MD Primary Care Provider Kory Vogt MD Unavailable Xuan Ferraro DO Unavailable [phone] Harris Lennon MD Unavailable [phone] Margarita Davidson RN Unavailable [email or web address] Margarita Davidson RN Unavailable [email or web address] Jyoti Aviles OT Unavailable [phone] Reason for Referral * Physical Therapy (Elective) - Closed Specialty Diagnoses / Procedures Referred By Kelvin waddell Referred To Contact Physical Therapy Diagnoses Encounter for rehabilitation PELVIC FLOOR , Urinary and Fecal Incontinence Maritza Rodriguez NP Phone: tel: fax: [address] [address] Phone: tel: Referral ID Status Reason Start Date Expiration Date Visits Re quested Visits Authorized [id number] Closed 07/15/2020 09/11/2020 99 99 Encounter Details Date Type Department Care Team (Latest Contact Info) Description 07/10/2020 Transcribe Orders [facility] Physical Therapy Clinic [address] [place] [address] Maritza Rodriguez, C ARCHITECT [address] [facility] [place] [address] Encounter for rehabilitation (Primary Dx) Social History [...] [facility] [address] [place] [address] Chan Cruz MD [address] [place] [address] Orthopedics & Sports Medicine, [facility] [place] [address] 10/01/2025 1:00 PM EST Office Visit [facility] [address] [place] [address] 3rd Floor, [address] [place] [address] Stacie Gruber PA-C [address] [place] [address] 01/30/2026 11:00 AM EDT Office Visit [facility] [address] [place] [address] [place] [address] Harris Lennon MD [address] [place] [address], [address] [place] [address] [email or web address] 02/14/2026 10:10 AM EDT Office Visit [facility] Endocrinology Clinic [address] [place] [address] Talon Seth DO [address] [place] [address] [email or web address] Scheduled Referrals Name Type Priority Associated Diagnoses Orde r Schedule Ambulatory referral to [facility] Physical Therapy Outpatient Referral Routine Encounter for [...] documented as of this encounter Care Teams Corporation Secretary Relationship Specialty Start Date End Date Xuan Ferraro DO 9 [place] [address] [email or web address] PCP - General 09/15/18 01/15/21 Harris Lennon MD [address] [place] [address], [address] [place] [address] [email or web address] PCP - General Internal Medicine 01/16/21 Xuan Ferraro DO [address] [place] [address] [email or web address] Insurance Assigned Provider 06/09/19 10/06/21 Kory Vogt MD [address] [address] [email or web address] Gastroenterology 10/07/21 Xuan Ferraro DO [address] [place] [address] [email or web address] Insurance Assigned Provider 06/09/19 12/19/21 Harris Lennon MD [address] [place] [address], [address] [place] [address] [email or web address] Insurance Assigned Provider 12/17/23 Margarita Davidson RN [address] [place] [address], [address] [place] [address] [email or web address] PHCM Engineer/Conductor 06/02/22 06/29/22 Margarita Davidson RN [address] [place] [address], [address] [place] [address] [email or web address] PHCM Engineer/ConductorToll Collector Supervisor 07/01/22 02/17/25 Jyoti Aviles, OT [address] [place] [address] [email or web address] Transitions Engineer/ConductorCorporate Sales Representative Therapy 12/12/2312/14/23 documented as of this encounter Additional Source Comments The information contained in this document represents components of the legal health record. It is not the complete legal health record.[facility]
--- OUTSIDE RECORDS SUMMARY | 2025-09-10 13:49 | XMS_ITS | Encounter Summary ---
Author Organization [facility] Address [address] [place] [address] Phone Care Team Providers Care Fire Supervisor Name Role Phone Xuan Ferraro DO Primary Care Provider + [phone] Xuan Ferraro DO Unavailable [phone] Harris Lennon MD Primary Care Provider Kory Vogt MD Unavailable Xuan Ferraro DO Unavailable [phone] Harris Lennon MD Unavailable [phone] Margarita Davidson RN Unavailable [email or web address] Margarita Davidson RN Unavailable [email or web address] Jyoti Aviles OT Unavailable [phone] Encounter Details Date Type Department Care Team (Late st Contact Info) Description 07/02/2020 Procedure Pass [facility], Ct Scan - [address] [address] Social History Tobacco Use Types Packs/Day Years [...] Upcoming Encounters Date Type Department Care Team ([facility] st Contact Info) Description 09/19/2025 1:45 PM EST Office Visit [facility] [address] [place] [address] Chan Cruz MD [address] [place] [address] Orthopedics & Sports Medicine, [place] [address] 10/01/2025 1:00 PM EST Office Visit [facility] 22 [facility] 3rd Floor, [address] [place] [address] Stacie Gruber PA-C [address] [place] [address] 01/30/2026 11:00 AM EDT Office Visit [facility] Primary Care Clinic [address] [place] [address] Harris Lennon MD 22 [facility], [address] [place] [address] 02/14/2026 10:10 AM EDT Office Visit [facility] Endocrinology Clinic [address] [place] [address] Talon Seth DO 22 [place] [address] documented as of this encounter Visit Diagnoses [...] documented as of this encounter Care Teams Fire Supervisor Relationship Specialty Start Date End Date Xuan Ferraro DO [address] [place] [address] [email or web address] PCP - General 09/15/18 01/15/21 Harris Lennon MD [address] [place] [address], [address] [place] [address] [email or web address] PCP - General Internal Medicine 01/16/21 Xuan Ferraro DO [address] [place] [address] [email or web address] Insurance Assigned Provider 06/09/19 10/06/21 Kory Vogt MD [address] [place] [address] Gastroenterology 10/07/21 Xuan Ferraro DO [address] [place] [address] [email or web address] Insurance Assigned Provider 06/09/19 12/19/21 Harris Lennon MD [address] [place] [address], [address] [place] [address] [email or web address] Insurance Assigned Provider 12/17/23 Margarita Davidson RN [address] [place] [address], [address] [place] [address] [email or web address] PHCM Color Room Attendant 06/02/22 06/29/22 Margarita Davidson, RN 22 [place] [facility], [address] [place] [address] [email or web address] PHCM Color Room AttendantInside Sales Account Representative 07/01/22 02/17/25 Jyoti Aviles, OT 30 [place] [address] [email or web address] Transitions Color Room AttendantSurgical Coder Therapy 12/12/2312/14/23 documented as of this encounter Additional Source Comments The information contained in this document represents components of the legal health record. It is not the complete legal health record.[facility]
--- OUTSIDE RECORDS SUMMARY | 2025-09-10 13:49 | XMS_ITS | Encounter Summary ---
Author Organization [facility] Address [address] [place] [address] Phone Care Team Providers Care Education Specialist Name Role Phone Xuan Ferraro DO Primary Care Provider + [phone] Xuan Ferraro DO Unavailable [phone] Harris Lennon MD Primary Care Provider Kory Vogt MD Unavailable Xuan Ferraro DO Unavailable [phone] Harris Lennon MD Unavailable [phone] Margarita Davidson RN Unavailable [email or web address] Margarita Davidson RN Unavailable [email or web address] Jyoti Aviles OT Unavailable [phone] Reason for Referral * MRI/CAT Scan - Closed Specialty Diagnoses / Procedures Referred By Kelvin waddell Referred To Contact Radiology Diagnoses Weakness of lower extremity, unspecified laterality Procedures MRI Thoracic Spine John Cook DO Phone: tel: fax: mailto:[email or web address] Referral ID Status Reason Start Date Expiration Date Visits Re quested Visits Authorized [id number] Closed 05/23/2020 05/23/2021 1 1 * MRI/CAT Scan - Closed Specialty Diagnoses / Procedures Referred By Contac t Referred To Contact Radiology Diagnoses Weakness of left lower extremity Procedures MRI Lumbar Spine John Cook DO Phone: tel: fax: mailto:[email or web address] Referral ID Status Reason Start Date Expiration Date Visits Re quested Visits Authorized [id number] Closed 05/23/2020 05/23/2021 1 1 Encounter Details Date Type Department Care Team (Late Contact Info) Description 05/23/2020 Ancillary Orders Virtual Department [address] [place] [address] John Cook DO [address] [place] [address] [email or web address] Weakness of left lower extremity; Weakness of [...] Description 09/19/2025 1:45 PM EST Office Visit [facility] [address] [place] [address] [phone] Chan Cruz MD [address] [place] [address] Orthopedics & Sports Medicine, [facility] [place] [address] 10/01/2025 1:00 PM EST Office Visit [facility] [address] 3rd Floor, [address] [place] [address] Stacie Gruber PA-C [address] [place] [address] 01/30/2026 11:00 AM EDT Office Visit [facility] [address] [place] [address] Harris Lennon MD 22 [facility], [address] [place] [address] 02/14/2026 10:10 AM EDT Office Visit [facility] End[facility] [address] [place] [address] Talon Seth DO 22 [place] [address] documented as of this encounter Results * [...] stenosis has improved from previous MR study [id number]. L3-4: No disc herniation. No significant canal [...] documented as of this encounter Care Teams Education Specialist Relationship Specialty Start Date End Date Xuan Ferraro DO [address] [place] [address] [email or web address] PCP - General 09/15/18 01/15/21 Harris Lennon MD [address] [place] [address], [address] [place] [address] PCP - General Internal Medicine 01/16/21 Xuan Ferraro DO [address] [place] [address] [email or web address] Insurance Assigned Provider 06/09/19 10/06/21 Kory Vogt MD [address] [place] [address] [email or web address] Gastroenterology 10/07/21 Xuan Ferraro DO [address] [place] [address] [email or web address] Insurance Assigned Provider 06/09/19 12/19/21 Harris Lennon MD [address] [place] [address], [address] [place] [address] [email or web address] Insurance Assigned Provider 12/17/23 Margarita Davidson RN 22 [facility], [address] [place] [address] [email or web address] PHCM Transit Police Officer 06/02/22 06/29/22 Margarita Davidson RN [address] [place] [address], [address] [place] [address] [email or web address] PHC Transit Police OfficerChief Technician 07/01/22 02/17/25 Jyoti Aviles, OT [address] [place] [address] [email or web address] Transitions Transit Police OfficerThreading Machine Setter Therapy 12/12/2312/14/23 documented as of this encounter Additional Source Comments The information contained in this document represents components of the legal health record. It is not the complete legal health record.[facility]
--- OUTSIDE RECORDS SUMMARY | 2025-09-10 13:50 | XMS_ITS | Encounter Summary ---
Author Organization [facility] Address [address] [place] [address] Phone Care Team Providers Care Domain Architect Name Role Phone Harris Lennon MD Primary Care Provider [phone] Kory Vogt MD Unavailable Harris Lennon MD Unavailable [phone] Margarita Davidson RN Unavailable [email or web address] Jyoti Aviles OT Unavailable [phone] Encounter Details Date Type Department Care Team (Late st Contact Info) Description 02/08/2023 Procedure Pass [facility] [address] [place] [address] Social History Tobacco Use Types Packs/Day Years [...] 1:45 PM EST Office Visit [facility] [address] [place] [address] Chan Cruz MD [address] [place] [address] Orthopedics & Sports [place], [place] [address] 10/01/2025 1:00 PM EST Office Visit [facility] [address] [place] [address] 3rd Floor, [address] [place] [address] Stacie Gruber PA-C [address] [place] [address] 01/30/2026 11:00 AM EDT Office Visit [facility] [address] [place] [address] [place] [address] Harris Lennon MD 22 [facility], [address] [place] [address] 02/14/2026 10:10 AM EDT Office Visit [facility] Endocrinology Clinic [address] [place] [address] [place] [address] Talon Seth DO 22 [place] [address] documented as of this encounter Visit Diagnoses Not on filedocumented in this encounter Additional Health Concerns Infection Onset Date Last Indicated Resolved Time CoV-Risk 11/16/2023 11/16/2023 11/27/2023 1:21 AM EDT Assessment Noted Time PHQ-9 Depression Total Score: 15 018 2:17 PM EST PHQ-2 Depression Total Score: 0 06/22/20 23 1:25 PM EDT documented as of this encounter Care Teams Domain Architect Relationship Specialty Start Date End Date Harris Lennon MD [address] [place] [address], [address] [place] [address] PCP - General Internal Medicine 01/16/21 Kory Vogt MD [address] [place] [address] Gastroenterology 10/07/21 Harris Lennon MD [address] [place] [address], [address] [place] [address] Insurance Assigned Provider 12/17/23 Margarita Davidson, RN [address] [place] [address], [address] [place] [address] PHCM Calender Wind Up HelperClinical Program Director 07/01/22 02/17/25 Jyoti Aviles, OT [address] [place] [address] Transitions Calender Wind Up HelperBanking Management Consulting Manager Therapy 12/12/2312/14/23 documented as of this encounter Additional Source Comments The information contained in this document represents components of the legal health record. It is not the complete legal health record.[facility]
--- OUTSIDE RECORDS SUMMARY | 2025-09-10 13:50 | XMS_ITS | Encounter Summary ---
Author Organization [facility] Address [address] [place] [address] Phone Care Team Providers Care Irs Agent Name Role Phone Harris Lennon MD Primary Care Provider [phone] Kory Vogt MD Unavailable Harris Lennon MD Unavailable [phone] Margarita Davidson RN Unavailable [email or web address] Jyoti Aviles OT Unavailable [phone] Encounter Details Date Type Department Care Team (Late st Contact Info) Description 08/08/2023 Procedure Pass [facility], [address] [address] Social History Tobacco Use Types Packs/Day Years [...] Description 09/19/2025 1:45 PM EST Office Visit [facility] [address] [place] [address] Chan Cruz MD [address] [place] [address] Orthopedics & Sports Medicine, [place] [address] 10/01/2025 1:00 PM EST Office Visit [facility] [address] [facility] 3rd Floor, [address] [place] [address] Stacie Gruber PA-C [address] [place] [address] 01/30/2026 11:00 AM EDT Office Visit [facility] [address] [place] [address] Harris Lennon MD 22 [facility], [address] [place] [address] 02/14/2026 10:10 AM EDT Office Visit [facility] End[facility]inology [facility] [address] [place] [address] Talon Seth DO 22 [place] [address] documented as of this encounter Visit Diagnoses Not on filedocumented in this encounter Additional Health Concerns Infection Onset Date Last Indicated Resolved Time CoV-Risk 11/16/2023 11/16/2023 11/27/2023 1:21 AM EDT Assessment Noted Time PHQ-9 Depression Total Score: 15 018 2:17 PM EST PHQ-2 Depression Total Score: 0 06/22/20 23 1:25 PM EDT documented as of this encounter Care Teams Irs Agent Relationship Specialty Start Date End Date Harris Lennon MD [address] [place] [address], [address] [place] [address] PCP - General Internal Medicine 01/16/21 Kory Vogt MD [address] [place] [address] Gastroenterology 10/07/21 Harris Lennon MD [address] [place] [address], [address] [place] [address] Insurance Assigned Provider 12/17/23 Margarita Davidson, RN 22 [facility], [address] [place] [address] [email or web address] HistopathologistDirector Of Ancillary Services 07/01/22 02/17/25 Jyoti Aviles, OT [address] [place] [address] [email or web address] Transitions HistopathologistOphthalmic Dispenser Therapy 12/12/2312/14/23 documented as of this encounter Additional Source Comments The information contained in this document represents components of the legal health record. It is not the complete legal health record.[facility]
--- OUTSIDE RECORDS SUMMARY | 2025-09-10 13:50 | XMS_ITS | Encounter Summary ---
Author Organization [facility] Address [address] [place] [address] Phone Care Team Providers Care Instructional Support Specialist Name Role Phone Harris Lennon MD Primary Care Provider [phone] Kory Vogt MD Unavailable Xuan Ferraro DO Unavailable [phone] Harris Lennon MD Unavailable [phone] Margarita Davidson RN Unavailable [email or web address] Margarita Davidson RN Unavailable [email or web address] Jyoti Aviles OT Unavailable [phone] Encounter Details Date Type Department Care Team (Latest Contact Info) Description 11/25/2021 Transcribe Orders [facility] Phleb Earline [address] [facility] 2nd [place] [address] Margarita Hart, NIKO [address] [place] [address] Abdominal pain, right lower quadrant (Primary Dx) [...] [facility] [address] [place] [address] Chan Cruz MD [address] [place] [address] Orthopedics & [place], [place] [address] 10/01/2025 1:00 PM EST Office Visit [facility] [address] [place] [address] 3rd Floor, [address] [place] [address] Stacie Gruber PA-C [address] [place] [address] 01/30/2026 11:00 AM EDT Office Visit [facility] [address] [place] [address] Harris Lennon MD [address] [place] [address], [address] [place] [address] 02/14/2026 10:10 AM EDT Office Visit [facility] End[facility]inology [facility] [address] [place] [address] Talon Seth DO [address] [place] [address] documented as of this encounter Results * (ABNORMAL) Comprehensive metabolic panel (11/25/2021 4:16 PM EDT) SODIUM 128(L) 133 - 146 mmol/L [facility] POTASSIUM 4.4 3.3 - 5.1 mmol/L [facility] CHLORIDE 96 96 - 108 mmol/L [facility] CO2 25 21 - 35 mmol/L [facility] BUN 10 6 - 19 mg/dL [facility] CREATININE 0.50 0.5 - 1.5 mg/dL [facility] GLUCOSE 97 70 - 99 mg/dL [facility] ALBUMIN 4.3 3.9 - 4.8 g/dL [facility] TOTAL PROTEIN 7.3 6.5 - 8.0 g/dL [facility] CALCIUM 9.2 8.4 - 10.3 mg/dL [facility] ALKALINE PHOSPHATASE 62 39 - 117 U/L [facility] TOTAL BILIRUBIN 0.2 0.0 - 1.2 mg/dL [facility] AST 25 0 - 37 U/L [facility] ALT 16 0 - 40 U/L [facility] GLOBULIN 3.0 1 - 4.8 g/dL [facility] EGFR 97 >59 mL/min/1.7 3m2 [facility] Comment:Estimated glomerular filtration rate calculated using the CKD-EPI refit equation. ANION GAP 11 10 - 20 mmol/L [facility] Blood 11/25/2021 4:16 PM EDT 11/25/2021 4:17 PM EDT Margarita Hart NP LAB BLOOD BKR ORDERABLES Final Result [facility] [address] [place] [address] * (ABNORMAL) CBC and differential (11/25/2021 4:16 PM EDT) WBC 6.38 4.00 - 11.00 K/uL [facility] RBC 3.98 3.72 - 5.30 M/uL [facility] HGB 12.4 11.4 - 15.9 g/dL [facility] HCT 37.2 34.2 - 46.8 % [facility] PLT 277 140 - 430 K/uL [facility] MCV 93.5 78.0 - 97.0 fL [facility] MCH 31.2 25.0 - 33.0 pg [facility] MCHC 33.3 32.0 - 36.0 g/dL [facility] RDW 13.5 11.0 - 16.0 % [facility] MPV 10.2 8.4 - 12.8 fl [facility] NRBC 0.00 0 /100 WBCs [facility] ABSOLUTE NRBC 0.00 0 K/uL [facility] DIFF METHOD Auto [facility] NEUTS 55.3 43.0 - 75.0 % [facility] LYMPHS 25.4 18.2 - 47.4 % [facility] MONOS 13.2(H) 4.00 - 11.00 % [facility] EOS 5.3 0.0 - 8.0 % [facility] BASOS 0.5 0.0 - 2.0 % [facility] Granulocytes, immature (%) 0.3 0.0 - 0.9 % [facility] ABSOLUTE NEUTS 3.53 1.80 - 7.70 K/uL [facility] ABSOLUTE LYMPHS 1.62 1.00 - 3.10 K/uL [facility] ABSOLUTE MONOS 0.84(H) 0.20 - 0.80 K/uL [facility] ABSOLUTE EOS 0.34 0.00 - 0.80 K/uL [facility] ABSOLUTE BASOS 0.03 0.00 - 0.09 K/uL [facility] Granulocytes, immature 0.02 0.00 - 0.05 K/uL [facility] Blood 11/25/2021 4:16 PM EDT 11/25/2021 4:17 PM EDT Margarita Hart NP LAB BLOOD BKR ORDERABLES Final Result [facility] [address] [place], [place] [id number] documented in this encounter Visit Diagnoses Diagnosis [...] documented as of this encounter Care Teams Instructional Support Specialist Relationship Specialty Start Date End Date Harris Lennon MD [address] [place] [address], [address] [place] [address] [email or web address] PCP - General Internal Medicine 01/16/21 Kory Vogt MD [address] [address] [email or web address] Gastroenterology 10/07/21 Xuan Ferraro DO [address] [place] [address] [email or web address] Insurance Assigned Provider 06/09/19 12/19/21 Harris Lennon MD [address] [place] [address], [address] [place] [address] Insurance Assigned Provider 12/17/23 Margarita Davidson RN [address] [place] [address], [address] [place] [address] [email or web address] PHCM Relay Worker 06/02/22 06/29/22 Margarita Davidson RN [address] [place] [address], [address] [place] [address] [email or web address] PHCM Relay WorkerMainspring Strip Inspector 07/01/22 02/17/25 Jyoti Aviles, OT [address] [place] [address] [email or web address] Transitions Relay WorkerEconomist Research Assistant Therapy 12/12/2312/14/23 documented as of this encounter Additional Source Comments The information contained in this document represents components of the legal health record. It is not the complete legal health record.[facility]
--- OUTSIDE RECORDS SUMMARY | 2025-09-10 13:50 | XMS_ITS | Encounter Summary ---
Author Organization [facility] Address [address] [place] [address] Phone Care Team Providers Care Mechanical Technologist Name Role Phone Xuan Ferraro DO Unavailable [phone] Harris Lennon MD Primary Care Provider [phone] Kory Vogt MD Unavailable Xuan Ferraro DO Unavailable [phone] Harris Lennon MD Unavailable [phone] Margarita Davidson RN Unavailable [email or web address] Margarita Davidson RN Unavailable [email or web address] Jyoti Aviles OT Unavailable [phone] Encounter Details Date Type Department Care Team (Late st Contact Info) Description 07/28/2021 Procedure Pass [address] [address] Social History Tobacco Use Types Packs/Day Years [...] Description 09/19/2025 1:45 PM EST Office Visit [facility] [address] [place] [address] Chan Cruz MD [address] [place] [address] Orthopedics & Sports Medicine, [place] [address] 10/01/2025 1:00 PM EST Office Visit [facility] [address] [place] [address] 3rd Floor, [address] [place] [address] Stacie Gruber PA-C [address] [place] [address] 01/30/2026 11:00 AM EDT Office Visit [facility] [address] [place] [address] [place] [address] Harris Lennon MD 22 [facility], [address] [place] [address] 02/14/2026 10:10 AM EDT Office Visit [facility] [address] [place] [address] [place] [address] Talon Seth DO 22 [place] [address] documented as of this encounter Visit Diagnoses [...] documented as of this encounter Care Teams Mechanical Technologist Relationship Specialty Start Date End Date Harris Lennon MD [address] [place] [address], [address] [place] [address] PCP - General Internal Medicine 01/16/21 Xuan Ferraro DO [address] [place] [address] .[employer] Insurance Assigned Provider 06/09/19 10/06/21 Kory Vogt MD [address] [place] [address] [email or web address] Gastroenterology 10/07/21 Xuna Ferraro DO [address] [place] [address] .[employer] Insurance Assigned Provider 06/09/19 12/19/21 Harris Lennon MD [address] [place] [address], [address] [place] [address] Insurance Assigned Provider 12/17/23 Margarita Davidson RN [address] [place] [address], [address] [place] [address] [email or web address] PHCM Cto 06/02/22 06/29/22 Margarita Davidson RN [address] [place] [address], [address] [place] [address] [email or web address] PHCM CtoNuclear Instructor 07/01/22 02/17/25 Jyoti Aviles, OT [address] [place] [address] [email or web address] Transitions CtoField Organizer Therapy 12/12/2312/14/23 documented as of this encounter Additional Source Comments The information contained in this document represents components of the legal health record. It is not the complete legal health record.[facility]
--- OUTSIDE RECORDS SUMMARY | 2025-09-10 13:50 | XMS_ITS | Encounter Summary ---
Author Organization [facility] Address [address] [place] [address] Phone Care Team Providers Care Ropewalk Rope Maker Name Role Phone Xuan Ferraro DO Unavailable [phone] Harris Lennon MD Primary Care Provider [phone] Kory Vogt MD Unavailable Xuan Ferraro DO Unavailable [phone] Harris Lennon MD Unavailable [phone] Margarita Davidson RN Unavailable [email or web address] Margarita Davidson RN Unavailable [email or web address] Jyoti Aviles OT Unavailable [phone] Encounter Details Date Type Department Care Team (Latest Contact Info) Description 07/28/2021 Transcribe Orders Virtual Department [address] [place] [address] Harris Lennon MD 22 [facility], [address] [place] [address] [email or web address] Breast screening (Primary Dx) Social [...] Description 09/19/2025 1:45 PM EST Office Visit [facility] [address] [place] [address] Chan Cruz MD [address] [place] [address] Orthopedics & Sports Medicine, [place] [address] 10/01/2025 1:00 PM EST Office Visit [facility] [address] [place] [address] 3rd Floor, [address] [place] [address] Stacie Gruber PA-C [address] [place] [address] 01/30/2026 11:00 AM EDT Office Visit [facility] [address] [place] [address] Harris Lennon MD 22 [facility], [address] [place] [address] 02/14/2026 10:10 AM EDT Office Visit [facility] [address] [place] [address] Talon Seth DO [address] [place] [address] documented as of this encounter Results * [...] documented as of this encounter Care Teams Ropewalk Rope Maker Relationship Specialty Start Date End Date Harris Lennon MD [address] [place] [address], [address] [place] [address] [email or web address] PCP - General Internal Medicine 01/16/21 Xuan Ferraro DO [address] [place] [address] [email or web address] Insurance Assigned Provider 06/09/19 10/06/21 Kory Vogt MD [address] [place] [address] Gastroenterology 10/07/21 Xuan Ferraro DO [address] [place] [address] [email or web address] Insurance Assigned Provider 06/09/19 12/19/21 Harris Lennon MD [address] [place] [address], [address] [place] [address] [email or web address] Insurance Assigned Provider 12/17/23 Margarita Davidson RN 22 [facility], [address] [place] [address] [email or web address] PHCM Clay Pigeon Loader 06/02/22 06/29/22 Margarita Davidson RN 22 [facility], [address] [place] [address] [email or web address] PHC Clay Pigeon LoaderFlagman 07/01/22 02/17/25 Jyoti Aviles, OT [address] [place] [address] [email or web address] Transitions Clay Pigeon LoaderBi Technical Lead Therapy 12/12/2312/14/23 documented as of this encounter Additional Source Comments The information contained in this document represents components of the legal health record. It is not the complete legal health record.[facility]
--- OUTSIDE RECORDS SUMMARY | 2025-09-10 13:50 | XMS_ITS | Encounter Summary ---
Author Organization [facility] Address [address] [place] [address] Phone Care Team Providers Care Contractor General Engineering Name Role Phone Harris Lennon MD Primary Care Provider [phone] Kory Vogt MD Unavailable Xuan Ferraro DO Unavailable [phone] Harris Lennon MD Unavailable [phone] Margarita Davidson RN Unavailable [email or web address] Margarita Davidson RN Unavailable [email or web address] Jyoti Aviles OT Unavailable [phone] Encounter Details Date Type Department Care Team (Latest Contact Info) Description 10/26/2021 Transcribe Orders [facility] Phleb Earline [address] [address] Margarita Hart, NIKO 10 [place] [address] Fecal smearing (Primary Dx); Diarrhea, unspecified type; [...] [facility] [address] [place] [address] Chan Cruz MD [address] [place] [address] Orthopedics & Sports Medicine, [place] [address] 10/01/2025 1:00 PM EST Office Visit [facility] [address] [place] [address] 3rd Floor, [address] [place] [address] Stacie Gruber PA-C [address] [place] [address] 01/30/2026 11:00 AM EDT Office Visit [facility] [address] [place] [address] [place] [address] Harris Lennon MD [address] [place] [address], [address] [place] [address] 02/14/2026 10:10 AM EDT Office Visit [facility] Endocrinology Clinic [address] [place] [address] [place] [address] Talon Seth DO 22 [place] [address] documented as of this encounter Results * (ABNORMAL) Stool fat/fiber exam (10/27/2021 8:35 AM EST) FATTY ACID INCREASED( A) NORMAL [facility] Neutral Fat, stool INCREASED( A) NORMAL [facility] Stool (Stool) 10/27/2021 8:3 5 AM EST 10/27/2021 9:59 AM EST Margarita Hart [employer] BODY FLUIDS AND STOOLS OR DERABLES Final Result Performing Organization Address [facility] Co de Phone Number [address] [address] * Pancreatic Elastase, Stool (10/27/2021 8:35 AM EST) Pathologist [facility] Pancreatic Elastase, Feces 488 >200 (Normal) mcg/g [facility] Stool (Stool) 10/27/2021 8:3 5 AM EST 10/27/2021 9:59 AM EST Margarita Hart NP BODY FLUIDS AND STOOLS OR DERABLES Final Result Performing Organization Address [facility] de Phone Number [facility] [address] [address] [place] [address] * C-Reactive Protein (10/26/2021 12:00 PM EST) Pathologist [facility] C REACTIVE PROTEIN 3.8 0.0 - 4.0 mg/L [facility] Blood 10/26/2021 12:0 0 PM EST 10/26/2021 12:05 PM EST Margarita Hart NP LAB BLOOD BKR ORDERABLES Final Result Performing Organization Address [facility] Co de Phone Number [address] [address] * (ABNORMAL) Comprehensive metabolic panel (10/26/2021 12:00 PM EST) SODIUM 135 133 - 146 mmol/L [facility] POTASSIUM 4.8 3.3 - 5.1 mmol/L [facility] CHLORIDE 101 96 - 108 mmol/L [facility] CO2 25 21 - 35 mmol/L [facility] BUN 12 6 - 19 mg/dL [facility] CREATININE 0.60 0.5 - 1.5 mg/dL [facility] GLUCOSE 109(H) 70 - 99 mg/dL [facility] ALBUMIN 4.5 3.9 - 4.8 g/dL [facility] TOTAL PROTEIN 7.3 6.5 - 8.0 g/dL [facility] CALCIUM 9.2 8.4 - 10.3 mg/dL [facility] ALKALINE PHOSPHATASE 64 39 - 117 U/L [facility] TOTAL BILIRUBIN 0.3 0.0 - 1.2 mg/dL [facility] AST 36 0 - 37 U/L [facility] ALT 21 0 - 40 U/L [facility] GLOBULIN 2.8 1 - 4.8 g/dL [facility] EGFR 92 >59 mL/min/1.7 3m2 [facility] Comment:Estimated glomerular filtration rate calculated using the CKD-EPI refit equation. ANION GAP 14 10 - 20 mmol/L [facility] Blood 10/26/2021 12:0 0 PM EST 10/26/2021 12:05 PM EST us Margarita Hart [employer] LAB BLOOD BKR ORDERABLES Final Result Performing Organization Address City/State/[facility] Co de Phone Number [address] [address] * (ABNORMAL) CBC (10/26/2021 12:00 PM EST) WBC 6.17 4.00 - 11.00 K/uL [facility] RBC 4.18 3.72 - 5.30 M/uL [facility] HGB 12.7 11.4 - 15.9 g/dL [facility] HCT 40.1 34.2 - 46.8 % [facility] PLT 250 140 - 430 K/uL [facility] MCV 95.9 78.0 - 97.0 fL [facility] MCH 30.4 25.0 - 33.0 pg [facility] MCHC 31.7(L) 32.0 - 36.0 g/dL [facility] RDW 13.6 11.0 - 16.0 % [facility] MPV 10.2 8.4 - 12.8 fl [facility] NRBC 0.00 0 /100 WBCs [facility] ABSOLUTE NRBC 0.00 0 K/uL [facility] Blood 10/26/2021 12:0 0 PM EST 10/26/2021 12:05 PM EST Margarita Hart NP LAB BLOOD BKR ORDERABLES Final Result Performing Organization Address [facility] de Phone Number [address] [address] * Immunoglobulin A (10/26/2021 12:00 PM EST) Pathologist [facility] IgA 164 70 - 400 mg/dL [facility] Blood 10/26/2021 12:0 0 PM EST 10/26/2021 12:05 PM EST Margarita Hart NP LAB BLOOD BKR ORDERABLES Final Result Performing Organization Address [facility] de Phone Number [address] [address] * Tissue transglutaminase IgA (10/26/2021 12:00 PM EST) TTG IGA ANTIBODY <1.2 <4.0 (Negative) U/mL [facility] Blood 10/26/2021 12:0 0 PM EST 10/26/2021 12:06 PM EST Margarita Hart NP LAB BLOOD BKR ORDERABLES Final Result Performing Organization Address [facility] de Phone Number [facility] [address] [place] [address] documented in this encounter Visit Diagnoses Diagnosis [...] documented as of this encounter Care Teams Contractor General Engineering Relationship Specialty Start Date End Date Harris Lennon MD [address] [place] [address], [address] [place] [address] PCP - General Internal Medicine 01/16/21 oKry Vogt MD [address] [place] [address] [email or web address] Gastroenterology 10/07/21 Xuan Ferraro DO [address] [place] [address] [email or web address] Insurance Assigned Provider 06/09/19 12/19/21 Harris Lennon MD [address] [place] [address], [address] [place] [address] Insurance Assigned Provider 12/17/23 Margarita Davidson RN [address] [place] [address], [address] [place] [address] [email or web address] PHCM Segmental Paver Installer 06/02/22 06/29/22 Margarita Davidson RN [address] [place] [address], [address] [place] [address] [email or web address] PHCM Segmental Paver InstallerSports Attorney 07/01/22 02/17/25 Jyoti Aviles, OT [address] [place] [address] Transitions Segmental Paver InstallerPlatform Engineer Therapy 12/12/2312/14/23 documented as of this encounter Additional Source Comments The information contained in this document represents components of the legal health record. It is not the complete legal health record.[facility]
--- OUTSIDE RECORDS SUMMARY | 2025-09-10 13:50 | XMS_ITS | Encounter Summary ---
Author Organization [facility] Address [address] [place] [address] Phone Care Team Providers Care School Bus Driver Name Role Phone Damien Lance MD Primary Care Provide r Xuan Ferraro DO Primary Care Provider + [phone] Damien Lance MD Unavailable [phone] Xuan Ferraro DO Unavailable [phone] Harris Lennon MD Primary Care Provider + [phone] Kory Vogt MD Unavailable Xuan Ferraro DO Unavailable [phone] Harris Lennon MD Unavailable [phone] Margarita Davidson RN Unavailable [email or web address] Margarita Davidson RN Unavailable [email or web address] Jyoti Aviles OT Unavailable [phone] Encounter Details Date Type Department Care Team (Late st Contact Info) Description 03/29/2018 Ancillary Orders [facility] [address] [place] [address] Damien Lance MD 22 [facility] Floor 1 [place] [address] [email or web address] Breast screening Social History Tobacco Use Types [...] Description 09/19/2025 1:45 PM EST Office Visit [facility] [address] [place] [address] Chan Cruz MD [address] [place] [address] Orthopedics & [place], [place] [address] 10/01/2025 1:00 PM EST Office Visit [facility] [address] [place] [address] 3rd Floor, [address] [place] [address] Stacie Gruber PA-C [address] [place] [address] 01/30/2026 11:00 AM EDT Office Visit [facility] [address] [place] [address] [place] [address] Harris Lennon MD 22 [facility], [address] [place] [address] 02/14/2026 10:10 AM EDT Office Visit [facility] Endocrinology Clinic [address] [place] [address] Talon Seth DO 22 [place] [address] (work) [email or web address] documented as of this encounter Results * [...] There are scattered fibroglandular densities. POS - [id number] Narrative 05/11/2018 1:25 PM EDT Full-field digital [...] There are scattered fibroglandular densities. POS - [id number] Damien Lance MD IMG MG EXAMS Final [...] documented as of this encounter Care Teams School Bus Driver Relationship Specialty Start Date End Date Damien Lance MD [email or web address] PCP - General Internal Medicine 07/18/17 09/14/18 Xuan Ferraro DO [address] [place] [address] [email or web address] PCP - General 09/15/18 01/15/21 Harris Lennon MD [address] [place] [address], [address] [place] [address] [email or web address] PCP - General Internal Medicine 01/16/21 Damien Lance MD [address] [place] [address] Floor 1 [place] [address] [email or web address] Insurance Assigned Provider 07/16/17 06/09/19 Xuan Ferraro DO [address] [place] [address] [email or web address] Insurance Assigned Provider 06/09/19 10/06/21 Kory Vogt MD [address] [address] [email or web address] Gastroenterology 10/07/21 Xuan Ferraro DO [address] [place] [address] [email or web address] Insurance Assigned Provider 06/09/19 12/19/21 Harris Lennon MD [address] [place] [address], [address] [place] [address] [email or web address] Insurance Assigned Provider 12/17/23 Margarita Davidson RN [address] [place] [address], [address] [place] [address] [email or web address] PHCM Early Childhood Special Educator 06/02/22 06/29/22 Margarita Davidson RN [address] [place] [address], [address] [place] [address] [email or web address] PHCM Early Childhood Special EducatorTechnical Services Specialist 07/01/22 02/17/25 Jyoti Aviles, OT [address] [place] [address] [email or web address] Transitions Early Childhood Special EducatorCharge Gang Weigher Therapy 12/12/2312/14/23 documented as of this encounter Additional Source Comments The information contained in this document represents components of the legal health record. It is not the complete legal health record.[facility]
--- OUTSIDE RECORDS SUMMARY | 2025-09-10 13:50 | XMS_ITS | Encounter Summary ---
Author Organization [facility] Address [address] [place] [address] Phone Care Team Providers Care Sorting Grapple Operator Name Role Phone Xuan Ferraro DO Unavailable [phone] Harris Lennon MD Primary Care Provider [phone] Kory Vogt MD Unavailable Xuan Ferraro DO Unavailable [phone] Harris Lennon MD Unavailable [phone] Margarita Davidson RN Unavailable [email or web address] Margarita Davidson RN Unavailable [email or web address] Jyoti Aviles OT Unavailable [phone] Encounter Details Date Type Department Care Team (Late st Contact Info) Description 08/24/2021 Ancillary Orders [facility],Outside Imaging [address] [place], [place] [id number] System, Provider Not In, [facility] Partners [address] [address] Social History Tobacco Use Types Packs/Day Years [...] [facility] 4 [place] [address] Chan Cruz MD [address] [place] [address] Orthopedics & Sports Medicine, [place] [address] 10/01/2025 1:00 PM EST Office Visit [facility] 22 [facility] 3rd Floor, [address] [place] [address] Stacie Gruber PA-C [address] [place] [address] 01/30/2026 11:00 AM EDT Office Visit [facility] [address] [place] [address] Harris Lennon MD 22 [facility], [address] [place] [address] 02/14/2026 10:10 AM EDT Office Visit [facility] Endocrinology Clinic [address] [place] [address] Talon Seth DO 22 [place] [address] documented as of this encounter Results * [...] documented as of this encounter Care Teams Sorting Grapple Operator Relationship Specialty Start Date End Date Harris Lennon MD [address] [place] [address], [address] [address] [email or web address] PCP - General Internal Medicine 01/16/21 Xuan Ferraro DO [address] [place] [address] [email or web address] Insurance Assigned Provider 06/09/19 10/06/21 Kory Vogt MD [address] [place] [address] Gastroenterology 10/07/21 Xuan Ferraro DO [address] [place] [address] [email or web address] Insurance Assigned Provider 06/09/19 12/19/21 Harris Lennon MD [address] [place] [address], [address] [address] [email or web address] Insurance Assigned Provider 12/17/23 Margarita Davidson, RN [address] [place] [address] [address] [place] [address] [email or web address] PHCM Help Desk Support Specialist 06/02/22 06/29/22 Margarita Davidson, MARIZOL 22 [facility], [address] [place] [address] [email or web address] PHC Help Desk Support SpecialistPipe Connector 07/01/22 02/17/25 Jyoti Aviles, OT [address] [place] [address] [email or web address] Transitions Help Desk Support SpecialistWard Attendant Therapy 12/12/2312/14/23 documented as of this encounter Additional Source Comments The information contained in this document represents components of the legal health record. It is not the complete legal health record.[facility]
--- OUTSIDE RECORDS SUMMARY | 2025-09-10 13:50 | XMS_ITS | Encounter Summary ---
Author Organization [facility] Address [address] [place] [address] Phone Care Team Providers Care Kaiawhina Name Role Phone Harris Lennon MD Primary Care Provider [phone] Kory Vogt MD Unavailable Xuan Ferraro DO Unavailable [phone] Harris Lennon MD Unavailable [phone] Margarita Davidson RN Unavailable [email or web address] Margarita Davidson RN Unavailable [email or web address] Jyoti Aviles OT Unavailable Reason for Referral * MRI/CAT Scan - Closed Specialty Diagnoses / Procedures Referred By Contac t Referred To Contact Radiology Diagnoses RLQ abdominal pain Procedures CT Abdomen/Pelvis Margarita Hart NP Phone: tel: fax: Referral ID Status Reason Start Date Expiration Date Visits Re quested Visits Authorized [id number] Closed 11/26/2021 11/26/2022 1 1 Encounter Details Date Type Department Care Team (Latest Contact Info) Description 11/26/2021 Transcribe Orders Virtual Department 30 [place], [place] [id number] Margarita Hart NP [address] [place] [address] RLQ abdominal pain (Primary Dx) Social History [...] 09/19/2025 1:45 PM EST Office Visit [facility] [address] [place] [address] Chan Cruz MD [address] [place] [address] Orthopedics & Sports Medicine, [place] [address] 10/01/2025 1:00 PM EST Office Visit [facility] [address] [place] [address] 3rd Floor, [address] [place] [address] Stacie Gruber PA-C [address] [place] [address] 01/30/2026 11:00 AM EDT Office Visit [facility] Primary [facility] Clinic [address] [place] [address] [place] [address] Harris Lennon MD [address] [place] [address], [address] [place] [address] 02/14/2026 10:10 AM EDT Office Visit [facility] Endocrinology [address] [address] RoloTalon caceres DO [address] [place] [address] [email or web address] documented as of this encounter Results * [...] of cystitis. POS - [id number] Margarita Hart WELDING FOREMAN IMG CT ABD/PELVIS Final R esult documented [...] documented as of this encounter Care Teams Kaiawhina Relationship Specialty Start Date End Date Harris Lennon MD [address] [place] [address], [address] [place] [address] [email or web address] PCP - General Internal Medicine 01/16/21 Kory Vogt MD [address] [place] [address] [email or web address] Gastroenterology 10/07/21 Xuan Ferraro DO [address] [place] [address] [email or web address] Insurance Assigned Provider 06/09/19 12/19/21 Harris Lennon MD [address] [place] [address], [address] [place] [address] [email or web address] Insurance Assigned Provider 12/17/23 Margarita Davidson, MARIZOL [address] [place] [address], [address] [place] [address] [email or web address] [facility] Interventional Pain Physician 06/02/22 06/29/22 Margarita Davidson RN [address] [place] [address], [address] [place] [address] [email or web address] PHCM Interventional Pain PhysicianCopy Coordinator 07/01/22 02/17/25 Jyoti Aviles, OT [address] [place] [address] [email or web address] Transitions Interventional Pain PhysicianRural Service Engineer Therapy 12/12/2312/14/23 documented as of this encounter Additional Source Comments The information contained in this document represents components of the legal health record. It is not the complete legal health record.[facility]
--- OUTSIDE RECORDS SUMMARY | 2025-09-10 13:50 | XMS_ITS | Encounter Summary ---
Author Organization [facility] Address [address] [place] [address] Phone Care Team Providers Care Scissors Sharpener Name Role Phone Harris Lennon MD Primary Care Provider [phone] Kory Vogt MD Unavailable Xuan Ferraro DO Unavailable [phone] Harris Lennon MD Unavailable [phone] Margarita Davidson RN Unavailable [email or web address] Margarita Davidson RN Unavailable [email or web address] Jyoti Aviles OT Unavailable [phone] Encounter Details Date Type Department Care Team (Late st Contact Info) Description 11/26/2021 Procedure Pass , Ct Scan - [address] [address] Social History Tobacco Use Types Packs/Day Years [...] [facility] 4 [place] [address] Chan Cruz MD [address] [place] [address] Orthopedics & Sports Medicine, [facility] [place] [address] 10/01/2025 1:00 PM EST Office Visit [facility] [address] [place] [address] 3rd Floor, [address] [place] [address] Stacie Gruber PA-C [address] [place] [address] 01/30/2026 11:00 AM EDT Office Visit [facility] [address] [place] [address] Harris Lennon MD 22 [facility], [address] [place] [address] 02/14/2026 10:10 AM EDT Office Visit [facility] End[facility]ology Clinic [address] [place] [address] Talon Seth DO [address] [place] [address] documented as of this encounter Visit Diagnoses [...] documented as of this encounter Care Teams Scissors Sharpener Relationship Specialty Start Date End Date Harris Lennon MD [address] [place] [address], [address] [place] [address] PCP - General Internal Medicine 01/16/21 Kory Vogt MD [address] [place] [address] Gastroenterology 10/07/21 Xuan Ferraro DO [address] [place] [address] [email or web address] Insurance Assigned Provider 06/09/19 12/19/21 Harris Lennon MD [address] [place] [address], [address] [place] [address] Insurance Assigned Provider 12/17/23 Margarita Davidson RN [address] [place] [address], [address] [place] [address] [email or web address] PHCM Metal Washing Machine Operator 06/02/22 06/29/22 Margarita Davidson RN [address] [place] [address], [address] [place] [address] [email or web address] PHCM Metal Washing Machine OperatorClient Service Coordinator 07/01/22 02/17/25 Jyoti Aviles, OT [address] [place] [address] [email or web address] Transitions Metal Washing Machine OperatorUniform Patrol Police Officer Therapy 12/12/2312/14/23 documented as of this encounter Additional Source Comments The information contained in this document represents components of the legal health record. It is not the complete legal health record.[facility]
--- OUTSIDE RECORDS SUMMARY | 2025-09-10 13:50 | XMS_ITS | Encounter Summary ---
Author Organization [facility] Address [address] [place] [address] Phone Care Team Providers Care Digital Commentator Name Role Phone Xuan Ferraro DO Unavailable [phone] Harris Lennon MD Primary Care Provider [phone] Kory Vogt MD Unavailable Xuan Ferraro DO Unavailable [phone] Harris Lennon MD Unavailable [phone] Margarita Davidson RN Unavailable [email or web address] Margarita Davidson RN Unavailable [email or web address] Jyoti Aviles OT Unavailable [phone] Encounter Details Date Type Department Care Team (Late st Contact Info) Description 05/20/2021 Procedure Pass [facility], Ct Scan - [address] [address] Social History Tobacco Use Types Packs/Day Years [...] [facility] [address] [place] [address] Chan Cruz MD [address] [place] [address] Orthopedics & Sports Medicine, [place] [address] 10/01/2025 1:00 PM EST Office Visit [facility] [address] [facility] 3rd Floor, [address] [place] [address] Stacie Gruber PA-C [address] [place] [address] 01/30/2026 11:00 AM EDT Office Visit [facility] [address] [place] [address] Harris Lennon MD [address] [facility], [address] [place] [address] 02/14/2026 10:10 AM EDT Office Visit [facility] [address] [place] [address] Talon Seth DO 22 [place] [address] documented as of this encounter Visit Diagnoses [...] documented as of this encounter Care Teams Digital Commentator Relationship Specialty Start Date End Date Harris Lennon MD [address] [place] [address], [address] [place] [address] PCP - General Internal Medicine 01/16/21 Xuan Ferraro DO [address] [place] [address] [email or web address] Insurance Assigned Provider 06/09/19 10/06/21 Kory Vogt MD [address] [place] [address] Gastroenterology 10/07/21 Xuan Ferraro DO [address] [place] [address] [email or web address] Insurance Assigned Provider 06/09/19 12/19/21 Harris Lennon MD [address] [place] [address], [address] [place] [address] Insurance Assigned Provider 12/17/23 Margarita Davidson RN [address] [place] [address], [address] [place] [address] [email or web address] PHCM Military Lawyer 06/02/22 06/29/22 Margarita Davidson RN [address] [place] [address], [address] [place] [address] [email or web address] PHCM Military LawyerByproducts Supervisor 07/01/22 02/17/25 Jyoti Aviles, OT [address] [place] [address] [email or web address] Transitions Military LawyerMillinery Department Manager Therapy 12/12/2312/14/23 documented as of this encounter Additional Source Comments The information contained in this document represents components of the legal health record. It is not the complete legal health record.[facility]
--- OUTSIDE RECORDS SUMMARY | 2025-09-10 13:50 | XMS_ITS | Encounter Summary ---
Author Organization [facility] Address [address] [place] [address] Phone Care Team Providers Care Cash Control Specialist Name Role Phone Harris Lennon MD Primary Care Provider [phone] Kory Vogt MD Unavailable Harris Lennon MD Unavailable [phone] Margarita Davidson RN Unavailable [email or web address] Jyoti Aviles OT Unavailable [phone] Encounter Details Date Type Department Care Team (Late st Contact Info) Description 12/09/2023 Procedure Pass [facility], [address] [address] Social History Tobacco Use Types Packs/Day Years [...] Description 09/19/2025 1:45 PM EST Office Visit [facility] [address] [place] [address] Chan Cruz MD [address] [place] [address] Orthopedics & Sports Medicine, [place] [address] 10/01/2025 1:00 PM EST Office Visit [facility] [address] [facility] 3rd Floor, [address] [place] [address] Stacie Gruber PA-C [address] [place] [address] 01/30/2026 11:00 AM EDT Office Visit [facility] [address] [place] [address] Harris Lennon MD [address] [facility], [address] [place] [address] 02/14/2026 10:10 AM EDT Office Visit [facility] Endocrinology Clinic [address] [place] [address] Talon Seth DO 22 [place] [address] documented as of this encounter Visit Diagnoses Not on filedocumented in this encounter Additional Health Concerns Assessment Noted Time PHQ-9 Depression Total Score: 15 018 2:17 PM EST PHQ-2 Depression Total Score: 0 06/22/20 23 1:25 PM EDT documented as of this encounter Care Teams Cash Control Specialist Relationship Specialty Start Date End Date Harris Lennon MD [address] [place] [address], [address] [place] [address] PCP - General Internal Medicine 01/16/21 Kory Vogt MD [address] [place] [address] Gastroenterology 10/07/21 Harris Lennon MD [address] [place] [address], [address] [place] [address] Insurance Assigned Provider 12/17/23 Margarita Davidson, MARIZOL [address] [place] [address], [address] [place] [address] [email or web address] PHCM Aquatics InstructorRadiochemical Technician 07/01/22 02/17/25 Jyoti Aviles, OT [address] [place] [address] Transitions Aquatics InstructorVice President Quality Improvement Therapy 12/12/2312/14/23 documented as of this encounter Additional Source Comments The information contained in this document represents components of the legal health record. It is not the complete legal health record.[facility]
--- OUTSIDE RECORDS SUMMARY | 2025-09-10 13:50 | XMS_ITS | Encounter Summary ---
Author Organization [facility] Address [address] [place] [address] Phone Care Team Providers Care Internal Affairs Investigator Name Role Phone Harris Lennon MD Primary Care Provider [phone] Kory Vgot MD Unavailable Harris Lennon MD Unavailable [phone] Margarita Davidson RN Unavailable [email or web address] Jyoti Aviles OT Unavailable [phone] Encounter Details Date Type Department Care Team (Latest Contact Info) Description 08/08/2023 Transcribe Orders Virtual Department [address] [place] [address] Harris Lennon MD [address] [facility], [address] [place] [address] [email or web address] Breast screening (Primary Dx) Social [...] 09/19/2025 1:45 PM EST Office Visit [facility] [address] [place] [address] Chan Cruz MD [address] [place] [address] Orthopedics & Sports Medicine, [place] [address] 10/01/2025 1:00 PM EST Office Visit [facility] [address] [place] [address] 3rd Floor, [address] [place] [address] Stacie Gruber PA-C [address] [place] [address] 01/30/2026 11:00 AM EDT Office Visit [facility] [address] [place] [address] Harris Lennon MD [address] [facility], [address] [place] [address] 02/14/2026 10:10 AM EDT Office Visit [facility] Endocrinology Clinic [address] [place] [address] Talon Seth DO [address] [place] [address] documented as of this encounter Results * [...] documented as of this encounter Care Teams Internal Affairs Investigator Relationship Specialty Start Date End Date Harris Lennon MD [address] [place] [address], [address] [place] [address] PCP - General Internal Medicine 01/16/21 Kory Vogt MD [address] [place] [address] Gastroenterology 10/07/21 Harris Lennon MD [address] [place] [address], [address] [place] [address] Insurance Assigned Provider 12/17/23 Margarita Davidson, RN [address] [place] [address], [address] [place] [address] [email or web address] PHCM Nylon OperatorDesign/Animation Instructor 07/01/22 02/17/25 Jyoti Aviles, OT [address] [place] [address] [email or web address] Transitions Nylon OperatorHadoop Administrator Therapy 12/12/2312/14/23 documented as of this encounter Additional Source Comments The information contained in this document represents components of the legal health record. It is not the complete legal health record.[facility]
--- OUTSIDE RECORDS SUMMARY | 2025-09-10 13:50 | XMS_ITS | Encounter Summary ---
Author Organization [facility] Address [address] [place] [address] Phone Care Team Providers Care Sign Wirer Name Role Phone Xuan Ferraro DO Unavailable [phone] Harris Lennon MD Primary Care Provider [phone] Kory Vogt MD Unavailable Xuan Ferraro DO Unavailable [phone] Harris Lennon MD Unavailable [phone] Margarita Davidson RN Unavailable [email or web address] Margarita Davidson RN Unavailable [email or web address] Jyoti Aviles OT Unavailable [phone] Encounter Details Date Type Department Care Team (Late st Contact Info) Description 05/20/2021 Procedure Pass [facility], Ct Scan - [address] [address] Social History Tobacco Use Types Packs/Day Years [...] 09/19/2025 1:45 PM EST Office Visit [facility] [address] [place] [address] Chan Cruz MD [address] [place] [address] Orthopedics & Sports Medicine, [place] [address] 10/01/2025 1:00 PM EST Office Visit [facility] [address] [facility] 3rd Floor, [address] [place] [address] Stacie Gruber PA-C [address] [place] [address] 01/30/2026 11:00 AM EDT Office Visit [facility] Primary Care Clinic [address] [place] [address] Harris Lennon MD 22 [facility], [address] [place] [address] 02/14/2026 10:10 AM EDT Office Visit [facility] Endocrinology Clinic [address] [place] [address] Talon Seth DO [address] [place] [address] documented as of this encounter Visit Diagnoses [...] documented as of this encounter Care Teams Sign Wirer Relationship Specialty Start Date End Date Harris Lennon MD [address] [place] [place] [address], [address] [place] [address] PCP - General Internal Medicine 01/16/21 Xuan Ferraro DO [address] [place] [address] [email or web address] Insurance Assigned Provider 06/09/19 10/06/21 Kory Vogt MD [address] [place] [address] Gastroenterology 10/07/21 Xuan Ferraro DO [address] [place] [address] [email or web address] Insurance Assigned Provider 06/09/19 12/19/21 Harris Lennon MD [address] [place] [place] [address], [address] [place] [address] Insurance Assigned Provider 12/17/23 Margarita Davidson RN [address] [place] [place] [address], [address] [place] [address] [email or web address] PHCM Estate Manager 06/02/22 06/29/22 Margarita Davidson RN [address] [place] [place] [address], [address] [place] [address] [email or web address] PHCM Estate ManagerCommunity Leader 07/01/22 02/17/25 Jyoti Aviles, OT [address] [place] [address] [email or web address] Transitions Estate ManagerBoring Machine Feeder Therapy 12/12/2312/14/23 documented as of this encounter Additional Source Comments The information contained in this document represents components of the legal health record. It is not the complete legal health record.[facility]
== END 2025-09-10 11:00 | disposition home or self-care (01) ==
LOC: HO.ACS 10:21
PROVIDERS: PCP Internal Medicine; Visit Provider Internal Medicine Medical Oncology
DX: Z79.01 Long term (current) use of anticoagulants (principal)

== ENCOUNTER → 2025-09-10 10:21 | Outpatient (BNVA) | payer MEDICARE, SELFPAY | PROVIDERS: PCP Internal Medicine; Visit Provider Internal Medicine Medical Oncology | DX: I48.0 Paroxysmal atrial fibrillation (principal); Z51.81 Encounter for therapeutic drug level monitoring; Z79.01 Long term (current) use of anticoagulants | CPT/HCPCS: 85610; 99211 ==